=== PATIENT | female | born 1955 | race Caucasian/White ===

== ENCOUNTER 2019-08-21 23:00 | Observation (INO) | payer MEDICARE, MEDICAID, SELFPAY ==
[2019-08-21 23:01] VITALS: BP 163/98; PULSE 108; RESP 16; TEMP 36.8; O2SAT 96; BMI 23.3
--- NOTE | 2019-08-21 23:24 | CT_ITS ---
PROCEDURE: CT ABDOMEN PELVIS WO CON CLINICAL INDICATION: lft flank pain Left flank pain COMPARISON: ABDPELW CT ABD PELVIS W/ CONTRAST from 04/28/2016 TECHNIQUE: Axial images obtained with sagittal and coronal reformats. All CT scans at the facility use one or more dose reduction, viz: automated exposure control, ma/kV adjustment per patient size (including targeted exams where dose is matched to indication, i.e. head), or iterative reconstruction technique. FINDINGS: LOWER THORAX: There is mild thickening of the pericardium at 8 mm. Coronary artery calcifications are present. ABDOMEN & PELVIS: Prior cholecystectomy. The liver, spleen, right adrenal gland, pancreas, and left kidney have an unremarkable appearance. There is a left adrenal mass which measures 2.7 cm measuring -13 Hounsfield units consistent with an adenoma. The right kidney is severely atrophic. Atherosclerotic changes are present involving the abdominal aorta with mild dilatation of the mid abdominal aorta at 2 cm.. There is nonvisualization of the appendix but no signs of appendicitis. Bowel gas pattern is nonspecific. There are scattered colonic diverticula but no evidence of diverticulitis. No acute bony anomalies. There is a sclerotic focus involving the left femoral head measuring 8 mm suggesting a bone island. IMPRESSION: 1. No acute findings. 2. Left adrenal adenoma not significantly changed. 3. Atrophy of the right kidney Dictated by: Terence Padron MD 08/22/2019 09:59 Electronically signed by Terence Padron MD in [place] 08/22/2019 09:59
--- NOTE | 2019-08-21 23:46 | HMH.EDGENADL ---
ED Disposition Clinical Impression: Flank pain, acute UTI (urinary tract infection) Qualifiers: Urinary tract infection type: site unspecified Hematuria presence: without hematuria Qualified Code(s): N39.0 - Urinary tract infection, site not specified Disposition: Admitted as Observation Condition on Discharge: Fair Referrals: Nico Hayward MD [Primary Care Provider] - - Critical Care Critical Care Time: No Attestation: On 08/21/19, the high probability of a clinically significant, sudden or life threatening deterioration of the following system(s) required my full and direct attention, intervention and personal management. The time I documented below is in addition to time spent performing reported procedures but includes the following listed in this critical care notation. Medical Decision Making - Medical Records Medical records reviewed: Yes: I reviewed the patient's medical records. - Leonard Inquiry Pt receiving controlled substance: No Vital Signs: 08/21/19 23:01 08/22/19 00:01 08/22/19 00:31 Temperature 98.2 F Temperature Source Oral Pulse Rate [Left Radial] 108 H 99 H 91 H Respiratory Rate 16 16 15 Blood Pressure [Right Arm] 163/98 H 154/96 H 153/89 H Blood Pressure Mean [Right Arm] 119 115 110 Blood Pressure Source [Right Arm] Automatic Cuff Blood Pressure Position [Right Arm] Sitting Sitting 02 Sat by Pulse Oximetry 96 97 95 Oxygen Delivery Method Room Air Room Air Room Air 08/22/19 01:01 Temperature Temperature Source Pulse Rate [Left Radial] 81 Respiratory Rate 16 Blood Pressure [Right Arm] 146/71 H Blood Pressure Mean [Right Arm] 96 Blood Pressure Source [Right Arm] Automatic Cuff Blood Pressure Position [Right Arm] 02 Sat by Pulse Oximetry 94 L Oxygen Delivery Method Room Air - Lab Data Lab results reviewed: Yes: I reviewed the patient's lab results. Lab Results 08/21/19 23:55: WBC 10.1, RBC 4.73, Hgb 14.4, Hct 41.6, MCV 88.0, MCH 30.5, MCHC 34.7, RDW 14.2, Plt Count 201, MPV 7.2 L, Neut % (Auto) 74.3, Lymph % (Auto) 18.3, [place] % (Auto) 5.4, Eos % (Auto) 1.5, Baso % (Auto) 0.5, Neut # (Auto) 7.5, Lymph # (Auto) 1.8, [place] # (Auto) 0.5, Eos # (Auto) 0.2, Baso # (Auto) 0.1, ESR 76 H 08/21/19 23:55: Sodium 138, Potassium 4.0, Chloride 101, Carbon Dioxide 28, Anion Gap 13.0, BUN 11, Creatinine 1.10 H, Estimated Creat Clear 53, Estimated GFR 50 L, Est GFR ( Amer) 60, Glucose 116 H, Calcium 10.3 H, Total Bilirubin 0.5, AST 24, ALT 14, Alkaline Phosphatase 145 H, C-Reactive Protein 16.7 H, Total Protein 8.2, Albumin 4.6, Globulin 3.6 H, Albumin/Globulin Ratio 1.3 08/22/19 00:00: Urine Color Yellow, Urine Appearance Clear, Urine pH 6.0, Ur Specific [place] 1.020, Urine Protein Negative, Urine Glucose (UA) Negative, Urine Ketones Negative, Urine Blood Negative, Urine Nitrate Negative, Urine Bilirubin Negative, Urine Urobilinogen 0.2, Ur Leukocyte Esterase 1+ A, Urine WBC 5-10, Ur Squamous Epith Cells 3-5, Urine Bacteria 1+ 08/22/19 00:16: Lactate 1.0 Result diagrams: 08/21/19 23:55 08/21/19 23:55 Orders (Tests/Meds): ED MEDICATIONS Generic Name Dose Route Start Last Admin Trade Name Freq PRN Reason Stop Dose Admin Sodium Chloride 1,000 mls @ 999 mls/hr 08/22/19 00:15 08/22/19 00:07 Sod Chlor 0.9% 1000ml Bag IV 08/22/19 01:15 999 mls/hr .Q1H1M CATALINO Administration Ertapenem 1 gm/ Sodium 50 mls @ 100 mls/hr 08/22/19 02:00 Chloride IV 09/05/19 01:59 Q24H CATALINO Protocol Discontinued Medications Generic Name Dose Route Start Last Admin Trade Name Freq PRN Reason Stop Dose Admin Ondansetron HCl 4 mg 08/22/19 00:04 08/22/19 00:07 Zofran 4mg/2ml Vial IV 08/22/19 00:05 4 mg ONCE ONE Administration ORDERS Category Date Time Status CT abdomen pelvis wo con Stat Cat Scan 08/21/19 23:24 Taken Blood Culture Stat Micro 08/22/19 00:16 Received Urine Culture Stat Micro 08/22/19 00:00 Received - CT Data CT Scan: Abdom
[2019-08-22] VITALS (10 sets, daily range): BP systolic 135–157; BP diastolic 71–96; PULSE 60–99; RESP 15–20; TEMP 36.4–36.8; O2SAT 91–98; BMI 19.6
[2019-08-22 00:01] LABS: Basophils # 0.1 K/mm3 (0-0.2); Basophils % 0.5 % (0.1-2.0); Eosinophils # 0.2 K/mm3 (0.0-0.4); Eosinophils % 1.5 % (0.1-12.0); Hematocrit 41.6 % (37.0-47.0); Hemoglobin 14.4 g/dL (12.2-16.2); Lymphocytes # 1.8 K/mm3 (0.7-4.5); Lymphocytes % 18.3 % (10-50); Mean Corpuscular HGB Conc 34.7 g/dL (31.8-35.4); Mean Corpuscular Hemoglobin 30.5 pg (27.0-31.2); Mean Platelet Volume 7.2 fl (7.4-10.4); Monocytes # 0.5 K/mm3 (0.1-1.0); Monocytes % 5.4 % (1.7-9.3); Neutrophils # 7.5 K/mm3 (1.8-7.8); Neutrophils % 74.3 % (37.0-80.0); Platelet Count 201 K/mm3 (142-424); Red Blood Count 4.73 M/mm3 (4.20-5.40); Red Cell Distribution Width 14.2 % (11.5-17.5); White Blood Count 10.1 K/mm3 (4.8-10.8)
[2019-08-22 00:04] LABS: Microscopic, Urine URINE MICROSCOPIC (MICROSCOPIC)
[2019-08-22 00:05] LABS: Appearance,Urine CLEAR (Clear); Bilirubin,Urine Negative (Negative); Blood, Urine Negative (Negative); Color,Urine YELLOW (Yellow); Glucose,Urine (UA) Negative (Negative); Ketones,Urine Negative (Negative); Leukocyte Esterase,Urine 1+ (Negative); Nitrate,Urine Negative (Negative); Protein,Urine Negative (Negative); Urobilinogen,Urine 0.2 EU/dl (0.2)
[2019-08-22 00:22] LABS: Bacteria,Urine 1+ /lpf
[2019-08-22 00:25] LABS: Alanine Aminotransferase 14 U/L (12-78); Albumin Level 4.6 g/dl (3.5-5.0); Albumin/Globulin Ratio 1.3 (1.1-1.8); Alkaline Phosphatase 145 U/L (38-126); Aspartate Amino Transferase 24 U/L (14-36); Bilirubin,Total 0.5 mg/dl (0.2-1.3); Blood Urea Nitrogen 11 mg/dl (7-17); Calcium 10.3 mg/dl (8.4-10.2); Carbon Dioxide 28 mmol/L (22.0-30.0); Chloride 101 mmol/L (98-107); Creatinine Clearance Estimated 53 mL/min (50-200); Estimated Glomerular Filt Rate 50 ml/min (>60); GFR (African American) 60 ML/MIN (>60); Globulin 3.6 g/dL (1.3-3.2); Glucose 116 mg/dl (74-100); Sodium 138 mmol/L (136-145); Total Protein,Serum 8.2 g/dl (6.3-8.2)
[2019-08-22 00:29] LABS: Erythrocyte Sedimentation Rate 76 mm/hr (0-30)
[2019-08-22 00:31] LABS: C-Reactive Protein 16.7 mg/L (0-4)
--- NOTE | 2019-08-22 02:29 | PC.NURSE ---
patient to floor via wheelchair.
--- NOTE | 2019-08-22 05:42 | PC.NURSE ---
A&OX4. PT TOLERATING RA WELL. PT C/O ABD PAIN ONLY WHEN SHE MOVES, AND HAS RESTED WELL MAJORITY OF SHIFT. PT UP INDEPENDENTLY IN ROOM. PT TOLERATING NPO DIET WELL. PT HAS HAD NO OTHER COMPLAINTS T/O SHIFT. VSS WILL CONTINUE TO MONITOR.
[2019-08-22 06:46] LABS: Eosinophils # 0.1 K/mm3 (0.0-0.4); Monocytes # 0.4 K/mm3 (0.1-1.0); Red Cell Distribution Width 14.3 % (11.5-17.5)
[2019-08-22 06:56] LABS: Basophils % 0.4 % (0.1-2.0); Eosinophils % 0.8 % (0.1-12.0); Hematocrit 35.8 % (37.0-47.0); Lymphocytes # 1.8 K/mm3 (0.7-4.5); Lymphocytes % 24.3 % (10-50); Mean Corpuscular HGB Conc 35.7 g/dL (31.8-35.4); Mean Corpuscular Hemoglobin 31.5 pg (27.0-31.2); Mean Corpuscular Volume 88.1 fl (81-99); Mean Platelet Volume 7.7 fl (7.4-10.4); Monocytes % 5.2 % (1.7-9.3); Neutrophils # 5.2 K/mm3 (1.8-7.8); Neutrophils % 69.3 % (37.0-80.0); Platelet Count 182 K/mm3 (142-424); Red Blood Count 4.06 M/mm3 (4.20-5.40); White Blood Count 7.4 K/mm3 (4.8-10.8)
[2019-08-22 06:59] LABS: Chloride 109 mmol/L (98-107); Hemoglobin 12.8 g/dL (12.2-16.2); Potassium 4.1 mmoL/L (3.5-5.1); Sodium 137 mmol/L (136-145)
[2019-08-22 07:02] LABS: Anion Gap 8.1 mEq/L (5-15); Blood Urea Nitrogen 8 mg/dl (7-17); Carbon Dioxide 24 mmol/L (22.0-30.0); Creatinine Clearance Estimated 58 mL/min (50-200); Estimated Glomerular Filt Rate 63 ml/min (>60); GFR (African American) 76 ML/MIN (>60); Glucose 118 mg/dl (74-100)
[2019-08-22 07:16] LABS: Calcium 8.8 mg/dl (8.4-10.2)
--- NOTE | 2019-08-22 07:27 | HMH.PHAVTE ---
[facility] Pharm[facility] VTE Monitoring - Patient Demographics Admission date: 08/22/19 Report Date: 08/22/19 Time: 07:27 Allergies/Adverse Reactions: Patient Allergies codeine [CODEINE] Allergy (Unknown, Verified 08/22/19 00:00) Height: 1.83 m Weight: 65.771 kg Patient Problems: Current Active Problems UTI (urinary tract infection) (Acute) Flank pain, acute (Acute) - VTE Risk Labs: VTE Related Lab Results Hgb 12.8 g/dL (12.2-16.2) D 08/22/19 06:21 Hct 35.8 % (37.0-47.0) L 08/22/19 06:21 Plt Count 182 K/mm3 (142-424) 08/22/19 06:21 BUN 8 mg/dl (7-17) D 08/22/19 06:21 Creatinine 0.90 mg/dl (0.52-1.04) 08/22/19 06:21 Estimated Creat Clear 58 mL/min (50-200) 08/22/19 06:21 Was VTE Risk Assessment Performed: Yes VTE Score: 6 VTE Risk Level: Moderate Risk Clinical Trial Participant: No - Prophylaxis VTE Prophylaxis Ordered?: Yes Types of VTE Prophylaxis: TEDS Knee High
--- NOTE | 2019-08-22 08:54 | HMH.CNCARD ---
History of Present Illness Consult date: 08/22/19 Requesting physician: Deshaun Sims Chief complaint: left flank pain Additional Medical History:: 1. Coronary artery disease A. STEMI, 10/2016, status post thrombectomy and ESMER to ostial proximal mid large first OM off the dominant circumflex artery. Persistent severe stenosis in second OM and moderate to severe stenosis in mid LAD as well as moderate to severe stenosis in proximal nondominant large RCA. Mild left ventricular dilatation with mild inferior apical hypokinesis and EF of 55%. LVEDP of 15 mmHg. Plan to bring the patient back within 2 weeks and undergo stenting of the second obtuse marginal with FFR to the LAD and RCA at that time as well. B. Left heart catheterization, 11/23/2016, ESMER to second OM and mid LAD. RCA lesion did not meet FFR criteria for stenting. C. Ischemic cardiomyopathy, 11/2016, Echo LVEF of 40%, mild MR and TR D. Extensive coronary artery calcification noted on abdominal CT scan, 08/2019 2. Tobacco use, started age 7, currently smoking 1 pack/day 3. History of CVA, 07/2019 with right upper extremity weakness that resolved. A. Patient relates plans for left carotid stenting at in the near future. 4. History of hypertension A. Echo, 11/2016, 1. Mildly enlarged left atrium, normal left ventricular size, mild concentric left ventricular hypertrophy, visually estimated ejection fraction 40% with multiple segmental wall motion abnormality described above, grade 1 diastolic dysfunction seen with tissue Doppler evidence of raised left atrial pressure. 2. Mild mitral and tricuspid regurgitation. 3. No significant pericardial effusion noted. 5. History of hyperlipidemia, on statin therapy 6. UTI, 08/22/2019 History of present illness: 64-year-old white female with extensive coronary artery disease and recent CVA 07/2019 for which she was treated and released from [facility] earlier this month presented to hospital for evaluation of left flank pain of sudden onset. Patient denies any chest pain, pressure or tightness. Work-up in the ER showed evidence of UTI and patient was admitted for further evaluation and treatment. CT of the abdomen and pelvis showed extensive coronary calcification and cardiology consulted for evaluation recommendations. Patient does have extensive coronary history as noted above with prior ST elevation IN and ischemic cardiomyopathy. She denies any of the angina type symptoms she had prior to her ST elevation IN. Patient has not been seen in our office in 2 years. She states she follows up with for all of her medical care. [facility] History Medical History: Reports:: Hypertension, Myocardial Infarction Denies:: Diabetes Mellitus Type 1, Diabetes Mellitus Type 2 *Have you ever received a pneumonia vaccine?: Yes *Have you received a flu vaccine this season?: No Other Surgeries: Yes: Cancer Surgery, Cholecystectomy, Coronary Stent, Other - *Social History Educational Level: Attended High School Smoking Status: Current every day smoker Tobacco Type: cigarettes # Packs/Day (cigarettes): 1 Alcohol Intake: never *Occupational Status:: retired *Travel in the last 8 weeks: None Family Hx:: Cancer, Coronary Artery Disease, Heart Attack Meds Home Medications Medication Instructions Recorded Confirmed Type Aspirin 81 mg PO DAILY 08/22/19 08/22/19 History Atorvastatin Calcium [Lipitor 80mg 80 mg PO HS 08/22/19 08/22/19 History Tablet] Clopidogrel Bisulfate [Clopidogrel 75 mg PO DAILY 08/22/19 08/22/19 History 75mg Tab] Losartan Potassium 25 mg PO DAILY 08/22/19 08/22/19 History Allergies Allergy/AdvReac Type Severity Reaction Status Date / Time codeine [CODEINE] Allergy Unknown Verified 08/22/19 00:00 Review of Systems - Review of Systems Review of systems:: pertinent systems reviewed and negative unless documented below - *Cardiovascular Reports shortness of breath with activity,
--- NOTE | 2019-08-22 09:10 | HMH.PHAINT ---
MEDICATION RECONCILIATION COMPLETED ON PATIENT USING PATIENT'S OWN RX BOTTLES. -RONN ADAMS, AMBERD
--- NOTE | 2019-08-22 09:17 | HMH.ACPN2 ---
Internal Medicine - PN: Subj *Date: 08/22/19 *Time: 08:30 Interval history: pt states she still having pain in left flank, Exam Vital signs and Labs for Last 24 Hours: Temp Pulse Resp BP Pulse Ox 97.9 F 79 18 145/82 H 95 08/22/19 07:35 08/22/19 08:46 08/22/19 08:46 08/22/19 07:35 08/22/19 08:46 Laboratory Results - last 24 hr 08/21/19 23:55: WBC 10.1, RBC 4.73, Hgb 14.4, Hct 41.6, MCV 88.0, MCH 30.5, MCHC 34.7, RDW 14.2, Plt Count 201, MPV 7.2 L, Neut % (Auto) 74.3, Lymph % (Auto) 18.3, [place] % (Auto) 5.4, Eos % (Auto) 1.5, Baso % (Auto) 0.5, Neut # (Auto) 7.5, Lymph # (Auto) 1.8, [place] # (Auto) 0.5, Eos # (Auto) 0.2, Baso # (Auto) 0.1, ESR 76 H 08/21/19 23:55: Sodium 138, Potassium 4.0, Chloride 101, Carbon Dioxide 28, Anion Gap 13.0, BUN 11, Creatinine 1.10 H, Estimated Creat Clear 53, Estimated GFR 50 L, Est GFR ( Amer) 60, Glucose 116 H, Calcium 10.3 H, Total Bilirubin 0.5, AST 24, ALT 14, Alkaline Phosphatase 145 H, C-Reactive Protein 16.7 H, Total Protein 8.2, Albumin 4.6, Globulin 3.6 H, Albumin/Globulin Ratio 1.3 08/22/19 00:00: Urine Color Yellow, Urine Appearance Clear, Urine pH 6.0, Ur Specific [place] 1.020, Urine Protein Negative, Urine Glucose (UA) Negative, Urine Ketones Negative, Urine Blood Negative, Urine Nitrate Negative, Urine Bilirubin Negative, Urine Urobilinogen 0.2, Ur Leukocyte Esterase 1+ A, Urine WBC 5-10, Ur Squamous Epith Cells 3-5, Urine Bacteria 1+ 08/22/19 00:16: Lactate 1.0 08/22/19 06:21: WBC 7.4 D, RBC 4.06 L, Hgb 12.8 D, Hct 35.8 L, MCV 88.1, MCH 31.5 H, MCHC 35.7 H, RDW 14.3, Plt Count 182, MPV 7.7, Neut % (Auto) 69.3, Lymph % (Auto) 24.3, [place] % (Auto) 5.2, Eos % (Auto) 0.8, Baso % (Auto) 0.4, Neut # (Auto) 5.2, Lymph # (Auto) 1.8, [place] # (Auto) 0.4, Eos # (Auto) 0.1, Baso # (Auto) 0.0 08/22/19 06:21: Sodium 137, Potassium 4.1, Chloride 109 H, Carbon Dioxide 24, Anion Gap 8.1, BUN 8 D, Creatinine 0.90, Estimated Creat Clear 58, Estimated GFR 63, Est GFR ( Amer) 76 D, Glucose 118 H, Calcium 8.8 D I & O for Last 24 hours: Intake & Output 08/19/19 08/20/19 08/21/19 08/22/19 11:59 11:59 11:59 11:59 Intake Total 174 / 174 Balance 174 / 174 Weight 145 lb - Constitutional no acute distress - *Routine HEENT Exam Head: Present: normocephalic Eye: Present: PERRL ENT: Present: mucous membranes moist - *Routine Neck Exam Present: supple. Absent: carotid bruit, lymphadenopathy - *Routine Respiratory Exam Present: CTA bilaterally - *Routine Cardiovascular Exam Present: RRR Comments: tender to palpate chest wall - *Routine Abdominal Exam Present: soft, normoactive bowel sounds, tenderness, surgical scars Comments: tenderness to left flank scars s/p gallbladder and hysterectomy - *Routine Extremities Exam Present: normal capillary refill. Absent: cyanosis, clubbing, edema - *Routine Skin Exam Present: intact, warm. Absent: rash - *Routine Neurological Exam Present: alert, oriented X3 - Routine Psychiatric Exam Present: normal affect Assessment and Plan (1) Flank pain, acute Current visit: Yes Status: Acute Category: Medical Code(s): R10.9 - Unspecified abdominal pain (2) UTI (urinary tract infection) Current visit: Yes Status: Acute Qualifiers: Urinary tract infection type: site unspecified Hematuria presence: without hematuria Qualified Code(s): N39.0 - Urinary tract infection, site not specified Category: Medical Code(s): N39.0 - Urinary tract infection, site not specified (3) Tobacco use disorder, continuous Current visit: Yes Status: Acute Category: Medical Code(s): F17.209 - Nicotine dependence, unspecified, with unspecified nicotine-induced disorders (4) Hyperlipidemia Current visit: Yes Status: Acute Category: Medical Code(s): E78.5 - Hyperlipidemia, unspecified (5) Coronary artery disease Current visit: Yes Status: Acute Category: Medical Code(s): I25.10 - Athe
--- NOTE | 2019-08-22 09:21 | XR_ITS ---
PROCEDURE: XR CHEST 2V CLINICAL HISTORY: chest wall tenderness Left-sided chest pain COMPARISON: CXR CHEST(2 VIEWS-NOT PORTABLE) from 04/05/2016 CXR1 CHEST-PORTABLE from 11/02/2016 FINDINGS: Mild cardiomegaly without failure. Mild prominence of the interstitial markings which appears chronic. No lobar consolidation or collapse. No acute bony findings. Coronary artery calcifications are present and there are degenerative changes of the thoracic spine with mild kyphosis. There is some minimal left apical pleural thickening slightly per more prominent which could be due to positioning. Follow-up may confirm stability No acute bony abnormalities. IMPRESSION: Mild cardiomegaly with chronic changes. Chronic changes with minimal left apical pleural thickening slightly more prominent. Follow-up may confirm stability Dictated by: Terence Padron MD 08/22/2019 10:02 Electronically signed by Terence Padron MD in [place] 08/22/2019 10:02
[2019-08-22 09:58] LABS: Troponin I < 0.01 ng/ml (0.00-0.034)
--- NOTE | 2019-08-22 15:31 | PC.NURSE ---
Pt has been pleasant and cooperative this shift. A&O X4. No complaints of pain or SOA. Gus was contacted regarding NPO status and Cardiac diet order was given. Lungs CTA. Pt ambulates to and from the bathroom independently. No BM thus far this shift. Pt refuses LOLY hose. 20 G peripheral IV in the RT AC is patent and infusing NS @ 75 ML/HR. VSS. Call light within reach. Will continue to monitor.
--- NOTE | 2019-08-22 16:32 | HMH.CONS ---
*Admission Date: 08/22/19 *Reason for consult:: Left flank pain *History of present illness: Patient is a 64-year-old white female who came to the emergency room yesterday with the acute onset of left flank pain. She denies a history of stones and a CT scan was performed which showed no evidence of stones. There is a left adrenal mass which measures 2.7 cm and is consistent with an adenoma. Looking back at the previous scan in 2017 size of this adenoma is stable and unchanged. Patient denies any trauma, injury or increased activity. Her renal function is normal and her white count is normal and her urinalysis showed few white cells and she is currently on an antibiotic. She gives a history of recurrent urinary tract infections and strong smelling urine. This is not been worked up in the past. [facility] History Medical History: Reports:: Hypertension, Myocardial Infarction Denies:: Diabetes Mellitus Type 1, Diabetes Mellitus Type 2 *Have you ever received a pneumonia vaccine?: Yes *Have you received a flu vaccine this season?: No Other Surgeries: Yes: Cancer Surgery, Cholecystectomy, Coronary Stent, Other - *Social History Educational Level: Attended High School Smoking Status: Current every day smoker Tobacco Type: cigarettes # Packs/Day (cigarettes): 1 Alcohol Intake: never *Occupational Status:: retired *Travel in the last 8 weeks: None Family Hx:: Cancer, Coronary Artery Disease, Heart Attack Review of Systems - Review of Systems Review of systems:: pertinent systems reviewed and negative unless documented below - *Neurologic Denies localized weakness, Denies seizure-like activity Meds Home Medications Medication Instructions Recorded Confirmed Type Aspirin 81 mg PO DAILY 08/22/19 08/22/19 History Atorvastatin Calcium [Lipitor 80mg 80 mg PO HS 08/22/19 08/22/19 History Tablet] Clopidogrel Bisulfate [Clopidogrel 75 mg PO DAILY 08/22/19 08/22/19 History 75mg Tab] Losartan Potassium 25 mg PO DAILY 08/22/19 08/22/19 History Allergies Allergy/AdvReac Type Severity Reaction Status Date / Time codeine [CODEINE] Allergy Unknown Verified 08/22/19 00:00 Exam Vital signs and Labs for Last 24 Hours: Temp Pulse Resp BP Pulse Ox 97.8 F 94 H 20 145/79 H 92 L 08/22/19 15:04 08/22/19 15:04 08/22/19 15:04 08/22/19 15:04 08/22/19 15:04 Laboratory Results - last 24 hr 08/21/19 23:55: WBC 10.1, RBC 4.73, Hgb 14.4, Hct 41.6, MCV 88.0, MCH 30.5, MCHC 34.7, RDW 14.2, Plt Count 201, MPV 7.2 L, Neut % (Auto) 74.3, Lymph % (Auto) 18.3, [place] % (Auto) 5.4, Eos % (Auto) 1.5, Baso % (Auto) 0.5, Neut # (Auto) 7.5, Lymph # (Auto) 1.8, [place] # (Auto) 0.5, Eos # (Auto) 0.2, Baso # (Auto) 0.1, ESR 76 H 08/21/19 23:55: Sodium 138, Potassium 4.0, Chloride 101, Carbon Dioxide 28, Anion Gap 13.0, BUN 11, Creatinine 1.10 H, Estimated Creat Clear 53, Estimated GFR 50 L, Est GFR ( Amer) 60, Glucose 116 H, Calcium 10.3 H, Total Bilirubin 0.5, AST 24, ALT 14, Alkaline Phosphatase 145 H, C-Reactive Protein 16.7 H, Total Protein 8.2, Albumin 4.6, Globulin 3.6 H, Albumin/Globulin Ratio 1.3 08/22/19 00:00: Urine Color Yellow, Urine Appearance Clear, Urine pH 6.0, Ur Specific [place] 1.020, Urine Protein Negative, Urine Glucose (UA) Negative, Urine Ketones Negative, Urine Blood Negative, Urine Nitrate Negative, Urine Bilirubin Negative, Urine Urobilinogen 0.2, Ur Leukocyte Esterase 1+ A, Urine WBC 5-10, Ur Squamous Epith Cells 3-5, Urine Bacteria 1+ 08/22/19 00:16: Lactate 1.0 08/22/19 06:21: WBC 7.4 D, RBC 4.06 L, Hgb 12.8 D, Hct 35.8 L, MCV 88.1, MCH 31.5 H, MCHC 35.7 H, RDW 14.3, Plt Count 182, MPV 7.7, Neut % (Auto) 69.3, Lymph % (Auto) 24.3, [place] % (Auto) 5.2, Eos % (Auto) 0.8, Baso % (Auto) 0.4, Neut # (Auto) 5.2, Lymph # (Auto) 1.8, [place] # (Auto) 0.4, Eos # (Auto) 0.1, Baso # (Auto) 0.0 08/22/19 06:21: Sodium 137, Potassium 4.1, Chloride 109 H, Carbon Dioxide 24, Anion Gap 8.1, BUN 8 D, Creatinine 0.90, Estimated Creat Clear 5
--- NOTE | 2019-08-22 23:35 | PC.NURSE ---
She is A&Ox4. She ambulates to the bathroom independently with steady gait. She reports that she has burning with urination, urinary urgency, and sometimes urinary frequency. She continues on RA. She also plans to make herself NPO at night for her appt at tomorrow.
[2019-08-23 04:00] VITALS: BP 150/76; PULSE 72; RESP 16; TEMP 36.4; O2SAT 94
--- NOTE | 2019-08-23 04:08 | PC.NURSE ---
PT HAS BEEN AWAKE MOST OF THE NIGHT STATES SHE HAS INSOMNIA.PT HAS ONLY BEEN MEDICATED WITH CATALINO TORADOL AND DENIED ANY PAIN BEFORE GIVEN.PT SAID SHE DID NOT KNOW WEATHER SHE WAS SUPPOSE TO BE NPO FOR TODAYS APPOINTMENT AT AT 1:45 FOR ULTRASOUND OF HER CAROID ARTERY,NOTIFIED RADIOLOGY HERE AND THEY SAID NO.PT STILL REPORTS SOME BURNING WITH VOIDING.NO OTHER ACUTE CHANGES TO REPORT,WILL CONTINUE TO MONITOR
[2019-08-23 05:00] VITALS: BMI 27.1
[2019-08-23 08:00] VITALS: BP 162/75; PULSE 75; RESP 16; TEMP 36.7; O2SAT 97
--- NOTE | 2019-08-23 11:36 | PC.NURSE ---
Addendum entered by Poonam Lea RN 08/23/19 12:00: 1200 - Call attempted again at this time w/ no answer. Pt family eager to leave. Discussed w/ pt if she was to wish to leave at this time she would have to sign a AMA paper d/t no DC order being place. Original Note: 1023 - Contacted Dr. Hayward's office about pt's discharge. Physician not available at this time. Nurse to leave note for call back. 1124 - Office contacted again about discharge orders. Spoke w/ service desk team lead who states they will speak w/ Faustoonda about placing order. Pt's family adamant about pt needing to leave to make appointment at by 1342. Reassured family that physicians office has been contacted and awaiting discharge orders.
--- NOTE | 2019-08-23 11:48 | HMH.DCSUM ---
General - General Admission date:: 08/22/19 Discharge date: 08/23/19 HPI HPI: 64 year old female presented to er with left flank pain, preceded by uti features. Antibiotics started, urology and cardiology consulted. Hospital Course Hospital Course: Laboratory Tests 08/21/19 08/21/19 08/22/19 23:55 23:55 00:00 WBC 10.1 RBC 4.73 Hgb 14.4 Hct 41.6 MCV 88.0 MCH 30.5 MCHC 34.7 RDW 14.2 Plt Count 201 MPV 7.2 L Neut % (Auto) 74.3 Lymph % (Auto) 18.3 [place] % (Auto) 5.4 Eos % (Auto) 1.5 Baso % (Auto) 0.5 Neut # (Auto) 7.5 Lymph # (Auto) 1.8 [place] # (Auto) 0.5 Eos # (Auto) 0.2 Baso # (Auto) 0.1 ESR 76 H Sodium 138 Potassium 4.0 Chloride 101 Carbon Dioxide 28 Anion Gap 13.0 BUN 11 Creatinine 1.10 H Estimated Creat Clear 53 Estimated GFR 50 L Est GFR ( Amer) 60 Glucose 116 H Lactate Calcium 10.3 H Total Bilirubin 0.5 AST 24 ALT 14 Alkaline Phosphatase 145 H Troponin I C-Reactive Protein 16.7 H Total Protein 8.2 Albumin 4.6 Globulin 3.6 H Albumin/Globulin Ratio 1.3 Urine Color Yellow Urine Appearance Clear Urine pH 6.0 Ur Specific [place] 1.020 Urine Protein Negative Urine Glucose (UA) Negative Urine Ketones Negative Urine Blood Negative Urine Nitrate Negative Urine Bilirubin Negative Urine Urobilinogen 0.2 Ur Leukocyte Esterase 1+ A Urine WBC 5-10 Ur Squamous Epith Cells 3-5 Urine Bacteria 1+ 08/22/19 08/22/19 08/22/19 00:16 06:21 06:21 WBC 7.4 D RBC 4.06 L Hgb 12.8 D Hct 35.8 L MCV 88.1 MCH 31.5 H MCHC 35.7 H RDW 14.3 Plt Count 182 MPV 7.7 Neut % (Auto) 69.3 Lymph % (Auto) 24.3 [place] % (Auto) 5.2 Eos % (Auto) 0.8 Baso % (Auto) 0.4 Neut # (Auto) 5.2 Lymph # (Auto) 1.8 [place] # (Auto) 0.4 Eos # (Auto) 0.1 Baso # (Auto) 0.0 ESR Sodium 137 Potassium 4.1 Chloride 109 H Carbon Dioxide 24 Anion Gap 8.1 BUN 8 D Creatinine 0.90 Estimated Creat Clear 58 Estimated GFR 63 Est GFR ( Amer) 76 D Glucose 118 H Lactate 1.0 Calcium 8.8 D Total Bilirubin AST ALT Alkaline Phosphatase Troponin I C-Reactive Protein Total Protein Albumin Globulin Albumin/Globulin Ratio Urine Color Urine Appearance Urine pH Ur Specific [place] Urine Protein Urine Glucose (UA) Urine Ketones Urine Blood Urine Nitrate Urine Bilirubin Urine Urobilinogen Ur Leukocyte Esterase Urine WBC Ur Squamous Epith Cells Urine Bacteria 08/22/19 06:21 WBC RBC Hgb Hct MCV MCH MCHC RDW Plt Count MPV Neut % (Auto) Lymph % (Auto) [place] % (Auto) Eos % (Auto) Baso % (Auto) Neut # (Auto) Lymph # (Auto) [place] # (Auto) Eos # (Auto) Baso # (Auto) ESR Sodium Potassium Chloride Carbon Dioxide Anion Gap BUN Creatinine Estimated Creat Clear Estimated GFR Est GFR ( Amer) Glucose Lactate Calcium Total Bilirubin AST ALT Alkaline Phosphatase Troponin I < 0.01 C-Reactive Protein Total Protein Albumin Globulin Albumin/Globulin Ratio Urine Color Urine Appearance Urine pH Ur Specific [place] Urine Protein Urine Glucose (UA) Urine Ketones Urine Blood Urine Nitrate Urine Bilirubin Urine Urobilinogen Ur Leukocyte Esterase Urine WBC Ur Squamous Epith Cells Urine Bacteria Microbiology 08/22/19 00:00 Urine,Clean Catch Urine Culture - Preliminary Gram Negative Rods IMPRESSION:ct abd oelvis 1. No acute findings. 2. Left adrenal adenoma not significantly changed. 3. Atrophy of the right kidney chest x ray:IMPRESSION: Mild cardiomegaly with chronic changes. Chronic changes with minimal left apical pleural thickening sli
--- NOTE | 2019-08-23 12:02 | HMH.HP ---
*Admission Date: 08/22/19 (h&p 08/22/19 late entry) *Chief complaint: flank pain *History of present illness: 64 year old female presented to er with left flank pain, preceded by uti features. Antibiotics started, urology and cardiology consulted. [facility] History I have reviewed the patient's past medical history: Yes Medical History: Reports:: Hypertension, Myocardial Infarction Denies:: Diabetes Mellitus Type 1, Diabetes Mellitus Type 2 *Have you ever received a pneumonia vaccine?: Yes *Have you received a flu vaccine this season?: No Other Surgeries: Yes: Cancer Surgery, Cholecystectomy, Coronary Stent, Other - *Social History Educational Level: Attended High School Smoking Status: Current every day smoker Tobacco Type: cigarettes # Packs/Day (cigarettes): 1 Alcohol Intake: never *Occupational Status:: retired *Travel in the last 8 weeks: None Family Hx:: Cancer, Coronary Artery Disease, Heart Attack Review of Systems - Review of Systems Review of systems:: pertinent systems reviewed and negative unless documented below - Constitutional Reports fever(s), Denies chills, Denies weakness - Eyes Denies blurry vision - ENT Denies facial pain - *Cardiovascular Denies chest pain with activity, Denies leg pain with activity - *Respiratory Denies shortness of breath with activity - *Gastrointestinal Denies bloating, Denies nausea, Denies vomiting - *Genitourinary Reports urinary urgency, Denies nipple discharge - *Musculoskeletal Denies abnormal walking - Integumentary/Breasts Denies rash - *Neurologic Denies localized weakness, Denies seizure-like activity - Psychiatric Denies sensing things others do not sense - Endocrine Denies rapid, pounding, or irregular heartbeat - Allergic/Immunologic Denies lip swelling Meds Home Medications Medication Instructions Recorded Confirmed Type Aspirin 81 mg PO DAILY 08/22/19 08/22/19 History Atorvastatin Calcium [Lipitor 80mg 80 mg PO HS 08/22/19 08/22/19 History Tablet] Clopidogrel Bisulfate [Clopidogrel 75 mg PO DAILY 08/22/19 08/22/19 History 75mg Tab] Losartan Potassium 25 mg PO DAILY 08/22/19 08/22/19 History Sulfamethoxazole/Trimethoprim 1 each PO BID 30 Days #60 tab 08/23/19 Rx [Bactrim DS tablet] Allergies Allergy/AdvReac Type Severity Reaction Status Date / Time codeine [CODEINE] Allergy Unknown Verified 08/22/19 00:00 Exam Vital signs and Labs for Last 24 Hours: Temp Pulse Resp BP Pulse Ox 98.1 F 75 16 162/75 H 97 08/23/19 08:00 08/23/19 08:00 08/23/19 08:00 08/23/19 08:00 08/23/19 08:00 Laboratory Results - last 24 hr 08/22/19 00:00: Urine Color Yellow, Urine Appearance Clear, Urine pH 6.0, Ur Specific [place] 1.020, Urine Protein Negative, Urine Glucose (UA) Negative, Urine Ketones Negative, Urine Blood Negative, Urine Nitrate Negative, Urine Bilirubin Negative, Urine Urobilinogen 0.2, Ur Leukocyte Esterase 1+ A, Urine WBC 5-10, Ur Squamous Epith Cells 3-5, Urine Bacteria 1+ I & O for Last 24 hours: Intake & Output 08/21/19 08/22/19 08/23/19 08/24/19 11:59 11:59 11:59 11:59 Intake Total 174 / 174 2928 / 2928 Output Total 900 / 900 Balance 174 / 174 2027 / 2028 Weight 145 lb 200 lb Microbiology Reports for the Last 24 Hours: Microbiology 08/22/19 00:00 Urine,Clean Catch Urine Culture - Preliminary Gram Negative Rods - *Routine HEENT Exam Head: Present: normocephalic Eye: Present: PERRL. Absent: periorbital tenderness ENT: Present: mucous membranes moist - *Routine Neck Exam Present: supple. Absent: lymphadenopathy - *Routine Respiratory Exam Present: CTA bilaterally Comments: tenderness to palpate chest wall - *Routine Cardiovascular Exam Present: RRR - *Routine Abdominal Exam Present: soft, normoactive bowel sounds. Absent: tenderness - *Routine Extremities Exam Present: normal capillary refill. Absent: cyano
--- NOTE | 2019-08-23 12:14 | PC.NURSE ---
Attempted to call office to notify of pt leaving AMA - straight to voicemail at this time.
== END 2019-08-23 12:19 | disposition home or self-care (01) ==
LOC: ER 08-22 01:51 → 2ND 08-22 01:53
PROVIDERS: Physician Assistant; Admitting Provider Emergency Medicine; Emergency Provider Emergency Medicine; PCP Emergency Medicine; Visit Provider Emergency Medicine
DX: N39.0 Urinary tract infection, site not specified (principal); B96.20 Unspecified Escherichia coli [E. coli] as the cause of diseases classified elsewhere; I25.10 Atherosclerotic heart disease of native coronary artery without angina pectoris; I69.351 Hemiplegia and hemiparesis following cerebral infarction affecting right dominant side; I10 Essential (primary) hypertension; Z72.0 Tobacco use; I25.5 Ischemic cardiomyopathy; D35.00 Benign neoplasm of unspecified adrenal gland; R10.9 Unspecified abdominal pain; E78.5 Hyperlipidemia, unspecified; I25.2 Old myocardial infarction; Z88.5 Allergy status to narcotic agent; Z88.8 Allergy status to other drugs, medicaments and biological substances
CPT/HCPCS: 36415; 71046; 74176; 80048; 80053; 81001; 83605; 84484; 85025; 85651; 86140; 87040; 87086; 87088; 87186; 96365; 96367; 96375; 99284; G0378; J1335; J2405

== ENCOUNTER → 2020-06-16 11:09 | Outpatient (CLI) | payer MEDICARE, SELFPAY ==
--- NOTE | 2020-06-16 11:10 | CA_ITS ---
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 Laterality: Bilateral Study Quality: Fair Indications: bruit, Risk Factors Hypertension: TIA/CVA History Smoking Surgery/Intervention Carotid Stent: left Date: 2019 Doppler Spectral Velocity Analysis ECA (R) 106.00/ cm/s ECA (L) 157.00/ cm/s dICA (R) 90.50/35.80 cm/s dICA (L) 72.40/25.60 cm/s [place] (R) 71.00/27.00 cm/s [place] (L) 75.40/29.20 cm/s pICA (R) 85.50/30.20 cm/s pICA (L) 91.30/29.30 cm/s dCCA (R) 59.40/22.30 cm/s dCCA (L) 65.30/16.70 cm/s pCCA (R) 58.70/14.30 cm/s pCCA (L) 59.40/16.20 cm/s Vert (R) 20.50/ cm/s Vert (L) 47.10/ cm/s ICA/CCA 1.50 ICA/CCA 1.40 Findings Duplex evaluation demonstrates stenosis of the right proximal internal carotid artery in the range of 20-49%, lower end of scale. Duplex evaluation demonstrates stenosis of the left proximal internal carotid artery <20%, tortuous vessel. Duplex evaluation demonstrates antegrade flow of the bilateral Vertebral Arteries. Conclusion Duplex evaluation demonstrates stenosis of the right proximal internal carotid artery in the range of 20-49%, lower end of scale. Duplex evaluation demonstrates stenosis of the left proximal internal carotid artery <20%, tortuous vessel. Duplex evaluation demonstrates antegrade flow of the bilateral Vertebral Arteries. Electronically signed by : Terence Padron MD 06/16/2020 17:06:45
== END ==
PROVIDERS: PCP Emergency Medicine; Visit Provider Family Medicine
DX: R09.89 Other specified symptoms and signs involving the circulatory and respiratory systems (principal)
CPT/HCPCS: 93880

== ENCOUNTER 2020-11-06 16:06 | Inpatient (IN) | payer MEDICARE, SELFPAY ==
[2020-11-06 16:08] VITALS: BP 119/60; PULSE 73; RESP 18; TEMP 36.7; O2SAT 98; BMI 21.7
[2020-11-06 17:06] LABS: Microscopic, Urine URINE MICROSCOPIC (MICROSCOPIC)
[2020-11-06 17:09] LABS: Lactic Acid 1.1 mmol/L (0.7-2.1)
[2020-11-06 17:10] LABS: Chloride 103 mmol/L (98-107)
[2020-11-06 17:11] LABS: Appearance,Urine SL CLOUDY (Clear); Bilirubin,Urine Negative (Negative); Blood, Urine Negative (Negative); Color,Urine YELLOW (Yellow); Glucose,Urine (UA) Negative (Negative); Ketones,Urine Negative (Negative); Leukocyte Esterase,Urine Negative (Negative); Nitrate,Urine Negative (Negative); Potassium 4.3 mmoL/L (3.5-5.1); Protein,Urine 1+ (Negative); Sodium 136 mmol/L (136-145); Specific Gravity, Urine 1.025 (1.005-1.030); Urobilinogen,Urine 0.2 EU/dl (0.2)
[2020-11-06 17:12] LABS: Basophils % 0.8 % (0.1-2.0); Eosinophils % 0.1 % (0.1-12.0); Hematocrit 46.3 % (37.0-47.0); Hemoglobin 15.3 g/dL (12.2-16.2); Lymphocytes # 1.3 K/mm3 (0.7-4.5); Lymphocytes % 27.9 % (10-50); Mean Corpuscular HGB Conc 32.9 g/dL (31.8-35.4); Mean Corpuscular Hemoglobin 28.9 pg (27.0-31.2); Mean Corpuscular Volume 87.9 fl (81-99); Mean Platelet Volume 9.5 fl (7.4-10.4); Monocytes # 0.2 K/mm3 (0.1-1.0); Monocytes % 5.1 % (1.7-9.3); Platelet Count 141 K/mm3 (142-424); Red Blood Count 5.27 M/mm3 (4.20-5.40); Red Cell Distribution Width 14.8 % (11.5-17.5); White Blood Count 4.5 K/mm3 (4.8-10.8)
[2020-11-06 17:13] LABS: Alanine Aminotransferase 36 U/L (12-78); Aspartate Amino Transferase 70 U/L (14-36); Blood Urea Nitrogen 25 mg/dl (7-17); Creatinine Clearance Estimated 27 mL/min (50-200); Estimated Glomerular Filt Rate 25 ml/min (>60); GFR (African American) 30 ML/MIN (>60)
[2020-11-06 17:14] LABS: Albumin Level 4.1 g/dl (3.5-5.0); Albumin/Globulin Ratio 1.2 (1.1-1.8); Alkaline Phosphatase 94 U/L (38-126); Anion Gap 18.3 mEq/L (5-15); Bilirubin,Total 0.5 mg/dl (0.2-1.3); Carbon Dioxide 19 mmol/L (22.0-30.0); Globulin 3.5 g/dL (1.3-3.2); Glucose 106 mg/dl (74-100); Total Protein,Serum 7.6 g/dl (6.3-8.2)
[2020-11-06 17:22] LABS: Bacteria,Urine 1+ /lpf
[2020-11-06 19:02] VITALS: BP 133/71; PULSE 76; RESP 18; O2SAT 98
[2020-11-06 19:11] LABS: Influenza A, PCR Not Detected (NotDetected); Influenza B, PCR Not Detected (NotDetected)
--- NOTE | 2020-11-06 19:11 | HMH.EDGENADL ---
ED Disposition Clinical Impression: Gastroenteritis Disposition: Admitted As Inpatient Condition on Discharge: Good Instructions: DI for Nausea -- Adult, DI for Nausea -- Child, DI for Diarrhea and Traveler's Diarrhea -- Adult, DI for Diarrhea and Traveler's Diarrhea -- Child Referrals: Nico Hayward MD [Primary Care Provider] - - Critical Care Critical Care Time: No Attestation: On 11/06/20, the high probability of a clinically significant, sudden or life threatening deterioration of the following system(s) required my full and direct attention, intervention and personal management. The time I documented below is in addition to time spent performing reported procedures but includes the following listed in this critical care notation. Medical Decision Making - Medical Records Medical records reviewed: Yes: I reviewed the patient's medical records. - Leonard Inquiry Pt receiving controlled substance: No Vital Signs: 11/06/20 16:08 11/06/20 19:02 Temperature 98.1 F Temperature Source Oral Pulse Rate 76 Pulse Rate [Right] 73 Respiratory Rate 18 18 Blood Pressure 133/71 Blood Pressure [Right Arm] 119/60 Blood Pressure Mean [Right Arm] 79 02 Sat by Pulse Oximetry 98 98 Oxygen Delivery Method Room Air Room Air - Lab Data Lab Results 11/06/20 16:41: WBC 4.5 L, RBC 5.27, Hgb 15.3, Hct 46.3, MCV 87.9, MCH 28.9, MCHC 32.9, RDW 14.8, Plt Count 141 L, MPV 9.5, Neut % (Auto) 66.0, Lymph % (Auto) 27.9, [place] % (Auto) 5.1, Eos % (Auto) 0.1, Baso % (Auto) 0.8, Neut # (Auto) 3.0, Lymph # (Auto) 1.3, [place] # (Auto) 0.2, Eos # (Auto) 0.0, Baso # (Auto) 0.0 11/06/20 16:41: Sodium 136, Potassium 4.3, Chloride 103, Carbon Dioxide 19 L, Anion Gap 18.3 H, BUN 25 H, Creatinine 2.00 H, Estimated Creat Clear 27, Estimated GFR 25 L, Est GFR ( Amer) 30 L, Glucose 106 H, Calcium 9.0, Total Bilirubin 0.5, AST 70 H, ALT 36, Alkaline Phosphatase 94, Total Protein 7.6, Albumin 4.1, Globulin 3.5 H, Albumin/Globulin Ratio 1.2 11/06/20 16:41: Lactate 1.1 11/06/20 16:41: Urine Color Yellow, Urine Appearance Sl cloudy, Urine pH 6.0, Ur Specific [place] 1.025, Urine Protein 1+, Urine Glucose (UA) Negative, Urine Ketones Negative, Urine Blood Negative, Urine Nitrate Negative, Urine Bilirubin Negative, Urine Urobilinogen 0.2, Ur Leukocyte Esterase Negative, Urine RBC 3-5, Urine WBC 3-5, Ur Squamous Epith Cells 3-5, Urine Bacteria 1+ Result diagrams: 11/06/20 16:41 11/06/20 16:41 Orders (Tests/Meds): ED MEDICATIONS Generic Name Dose Route Start Last Admin Trade Name Freq PRN Reason Stop Dose Admin Lactated Ringer's 1,000 mls @ 999 mls/hr 11/06/20 17:00 11/06/20 17:02 Lactated Ringer's 1000 Ml Bag IV 11/06/20 18:00 999 mls/hr .Q1H1M CATALINO Administration Lactated Ringer's 1,000 mls @ 999 mls/hr 11/06/20 19:00 11/06/20 18:51 Lactated Ringer's 1000 Ml Bag IV 11/06/20 20:00 999 mls/hr .Q1H1M CATALINO Administration Lactated Ringer's 1,000 mls @ 100 mls/hr 11/06/20 19:15 Lactated Ringer's 1000 Ml Bag IV 12/06/20 19:14 .Q10H CATALINO ORDERS Category Date Time Status BMP [Basic Metabolic Panel] AMLAB Lab 11/07/20 06:00 Ordered Diarrhea 6-11 Panel, Cdiff PCR Stat Lab 11/06/20 16:55 Ordered Rapid PCR Covid and Flu A/B Stat Lab 11/06/20 19:05 Received Medical Decision Narrative: Patient is a 65-year-old female presents the ED today for further evaluation of dehydration and diarrhea. Differential diagnosis includes enteritis, bacterial enteritis, diverticulitis, urinary tract infection. Patient is overall well-appearing on initial evaluation, vital signs stable mild tachycardia patient given 1 L of IV fluids, labs drawn, plan to obtain CBC CMP, lactate. Patient's creatinine found to be 2.0, as patient has a history of only one kidney, will admit overnight for observation recheck BMP in the morning. Will administer an additional liter of IV fluids for 2 L total, start maintenance fluids at 100/h.
[2020-11-06 19:38] VITALS: BMI 28.9
[2020-11-06 19:47] LABS: Coronavirus 19, PCR Detected (NotDetected)
[2020-11-06 20:00] VITALS: BP 148/70; PULSE 82; RESP 20; TEMP 37.4; O2SAT 90
--- NOTE | 2020-11-06 21:11 | HMH.HP ---
*Admission Date: 11/06/20 *Chief complaint: diarrhea *History of present illness: this pt presents to the ed - Patient c/o diarrhea for the last three weeks. Patient denies any chronic GI disease, patient denies any nausea and vomiting. Patient denies abdominal pain. Patient reports every bowel movement has been diarrhea for the last three weeks. Is a 65-year-old female presents the ED today for diarrhea x3 weeks and symptoms of dehydration. Patient states that she generally feels unwell, states that she has been having profuse diarrhea and for the last couple of days has not been able to keep up with her losses. Denies any blood being in the diarrhea endorses occasional abdominal cramping pain but does not have any other symptoms at this time. No chest pain shortness of breath cough fever. pt was found to have jesusita and was admitted and found also to have covid-19 [facility] History I have reviewed the patient's past medical history: Yes Medical History: Reports:: Cancer, Carotid Stenosis, Hyperlipidemia, Hypertension, Myocardial Infarction, Ulcer Denies:: Diabetes Mellitus Type 1, Diabetes Mellitus Type 2 *Have you ever received a pneumonia vaccine?: Yes *Have you received a flu vaccine this season?: No Other Surgeries: Yes: Cancer Surgery, Cardiac Catheterization, Cholecystectomy, Coronary Stent, Hysterectomy-Total, Tubal Ligation, Other Amputation: No Fractures: Yes - *Social History Smoking Status: Current every day smoker Tobacco Type: cigarettes # Packs/Day (cigarettes): 1 Alcohol Intake: never Substance Use Type: denies use *Occupational Status:: retired *Travel in the last 8 weeks: None Family Hx:: Cancer, Coronary Artery Disease, Heart Attack Review of Systems - Review of Systems Review of systems:: pertinent systems reviewed and negative unless documented below - Constitutional Denies fever(s), Denies headache(s) - Eyes Denies discharge - ENT Denies dizziness - *Cardiovascular Denies chest pain with activity - *Respiratory Denies cough - *Gastrointestinal Denies abdominal pain - *Genitourinary Denies blood in urine - *Musculoskeletal Denies joint pain - Integumentary/Breasts Denies rash - *Neurologic Denies headache(s), Denies seizure-like activity - Psychiatric Denies confusion Meds Home Medications Medication Instructions Recorded Confirmed Type No Known Home Medications 11/06/20 11/06/20 History Allergies Allergy/AdvReac Type Severity Reaction Status Date / Time codeine [CODEINE] Allergy Unknown Verified 06/04/20 13:17 morphine AdvReac Severe Hives Verified 06/04/20 13:17 Exam Vital signs and Labs for Last 24 Hours: Temp Pulse Resp BP Pulse Ox 98.1 F 76 18 133/71 98 11/06/20 16:08 11/06/20 19:02 11/06/20 19:02 11/06/20 19:02 11/06/20 19:02 Laboratory Results - last 24 hr 11/06/20 16:41: WBC 4.5 L, RBC 5.27, Hgb 15.3, Hct 46.3, MCV 87.9, MCH 28.9, MCHC 32.9, RDW 14.8, Plt Count 141 L, MPV 9.5, Neut % (Auto) 66.0, Lymph % (Auto) 27.9, [place] % (Auto) 5.1, Eos % (Auto) 0.1, Baso % (Auto) 0.8, Neut # (Auto) 3.0, Lymph # (Auto) 1.3, [place] # (Auto) 0.2, Eos # (Auto) 0.0, Baso # (Auto) 0.0 11/06/20 16:41: Sodium 136, Potassium 4.3, Chloride 103, Carbon Dioxide 19 L, Anion Gap 18.3 H, BUN 25 H, Creatinine 2.00 H, Estimated Creat Clear 27, Estimated GFR 25 L, Est GFR ( Amer) 30 L, Glucose 106 H, Calcium 9.0, Total Bilirubin 0.5, AST 70 H, ALT 36, Alkaline Phosphatase 94, Total Protein 7.6, Albumin 4.1, Globulin 3.5 H, Albumin/Globulin Ratio 1.2 11/06/20 16:41: Lactate 1.1 11/06/20 16:41: Urine Color Yellow, Urine Appearance Sl cloudy, Urine pH 6.0, Ur Specific [place] 1.025, Urine Protein 1+, Urine Glucose (UA) Negative, Urine Ketones Negative, Urine Blood Negative, Urine Nitrate Negative, Urine Bilirubin Negative, Urine Urobilinogen 0.2, Ur Leukocyte Esterase Negative, Urine RBC 3-5, Urine WBC 3-5, Ur Squamous Epith Cells 3-5, Urine Bacteria 1+ 11/06/20 19:05: SARS-C
[2020-11-06 22:31] VITALS: BP 124/73; PULSE 80; RESP 18; TEMP 36.7; O2SAT 98
[2020-11-06 22:59] LABS: Adenovirus F 40/41, stool Not Detected (NotDetected); Astrovirus Not Detected (NotDetected); Campylobacter Not Detected (NotDetected); Clostridium Difficile A/B, PCR Not Detected (NotDetected); Cryptosporidium Not Detected (NotDetected); Cyclospora Cayetanesis Not Detected (NotDetected); Entamoeba histolytica Not Detected (NotDetected); Enteroaggregative E coli Not Detected (NotDetected); Enteropathogenic E coli Not Detected (NotDetected); Enterotoxigenic E coli Not Detected (NotDetected); Giardia lamblia Not Detected (NotDetected); Norovirus Not Detected (NotDetected); Plesimonas Shigalloides, PCR Not Detected (NotDetected); Rotavirus A Not Detected (NotDetected); Salmonella, PCR Not Detected (NotDetected); Sapovirus Not Detected (NotDetected); Shiga-like toxin E coli Not Detected (NotDetected); Shigella Enterovasive E coli Not Detected (NotDetected); Vibrio Cholerae Not Detected (NotDetected); Vibrio, PCR Not Detected (NotDetected); Yersinia Entercolitica, PCR Not Detected (NotDetected)
[2020-11-07] VITALS (9 sets, daily range): BP systolic 121–159; BP diastolic 73–93; PULSE 76–88; RESP 16–20; TEMP 37.3–38.2; O2SAT 86–97; BMI 29.1
--- NOTE | 2020-11-07 00:11 | PC.NURSE ---
patients temp was 101.1, the nurse was notified.
--- NOTE | 2020-11-07 02:14 | PC.NURSE ---
added 2l o2 n/c sats 93%
--- NOTE | 2020-11-07 03:16 | PC.NURSE ---
Patient is alert and oriented x4. Patient lung sounds are diminished throughout. Patient was placed on 2LNC during this RN's shift after midnight. Patient was treated for a low grade temp of 100.1 around midnight and nausea. VSS, call light within reach, will continue to monitor.
--- NOTE | 2020-11-07 09:05 | HMH.ACPN2 ---
Internal Medicine - PN: Subj *Date: 11/08/20 *Time: 07:16 Interval history: feels ok but requiring o2 at 3l- diarrhea panel ok and labs pending Exam Vital signs and Labs for Last 24 Hours: Temp Pulse Resp BP Pulse Ox 100.8 F H 81 18 148/93 H 97 11/07/20 07:58 11/07/20 07:58 11/07/20 07:58 11/07/20 07:58 11/07/20 07:58 Laboratory Results - last 24 hr 11/06/20 16:41: WBC 4.5 L, RBC 5.27, Hgb 15.3, Hct 46.3, MCV 87.9, MCH 28.9, MCHC 32.9, RDW 14.8, Plt Count 141 L, MPV 9.5, Neut % (Auto) 66.0, Lymph % (Auto) 27.9, [place] % (Auto) 5.1, Eos % (Auto) 0.1, Baso % (Auto) 0.8, Neut # (Auto) 3.0, Lymph # (Auto) 1.3, [place] # (Auto) 0.2, Eos # (Auto) 0.0, Baso # (Auto) 0.0 11/06/20 16:41: Sodium 136, Potassium 4.3, Chloride 103, Carbon Dioxide 19 L, Anion Gap 18.3 H, BUN 25 H, Creatinine 2.00 H, Estimated Creat Clear 27, Estimated GFR 25 L, Est GFR ( Amer) 30 L, Glucose 106 H, Calcium 9.0, Total Bilirubin 0.5, AST 70 H, ALT 36, Alkaline Phosphatase 94, Total Protein 7.6, Albumin 4.1, Globulin 3.5 H, Albumin/Globulin Ratio 1.2 11/06/20 16:41: Lactate 1.1 11/06/20 16:41: Urine Color Yellow, Urine Appearance Sl cloudy, Urine pH 6.0, Ur Specific [place] 1.025, Urine Protein 1+, Urine Glucose (UA) Negative, Urine Ketones Negative, Urine Blood Negative, Urine Nitrate Negative, Urine Bilirubin Negative, Urine Urobilinogen 0.2, Ur Leukocyte Esterase Negative, Urine RBC 3-5, Urine WBC 3-5, Ur Squamous Epith Cells 3-5, Urine Bacteria 1+ 11/06/20 19:05: SARS-CoV-2 (PCR) Detected A, Influenza A Untype (PCR) Not detected, Influenza Type B (PCR) Not detected 11/06/20 22:22: Stl Aeromonas (PCR) Not detected, Stl C. cayetanensis PCR Not detected, Stool Rotavirus (PCR) Not detected, Stl Adenov F 40/41 PCR Not detected, Stool Astrovirus (PCR) Not detected, Stool Campylobacter PCR Not detected, Stl C.difficile Tox PCR Not detected, Stool Cryptosporidium PCR Not detected, Stl E.coli Shiga Tox PCR Not detected, Stool E coli O157 PCR Not detected, Stl Enterotoxigenic E PCR Not detected, Stool EPEC (PCR) Not detected, Stool EAEC (PCR) Not detected, Stl E. histolytica PCR Not detected, Stool Giardia Lamblia PCR Not detected, Stool Salmonella PCR Not detected, Stool Sapovirus (PCR) Not detected, Stl P. shigelloides PCR Not detected, Stl Shigella/EIEC PCR Not detected, St Y.enterocolitica PCR Not detected, Stool Vibrio (PCR) Not detected, Stl Vibrio cholerae PCR Not detected, Stl Norovirus GI/GII PCR Not detected I & O for Last 24 hours: Intake & Output 11/04/20 11/05/20 11/06/20 11/07/20 11:59 11:59 11:59 11:59 Intake Total 2847 / 2847 Balance 2847 / 2847 Weight 181 lb 4 oz - Constitutional no acute distress - *Routine HEENT Exam Head: Present: normocephalic Eye: Present: EOMI, PERRL ENT: Present: mucous membranes dry - *Routine Neck Exam Present: supple. Absent: JVD - *Routine Respiratory Exam Present: decreased breath sounds - *Routine Cardiovascular Exam Present: RRR, murmur - *Routine Abdominal Exam Present: soft - *Routine Extremities Exam Absent: calf tenderness - *Routine Skin Exam Present: intact - *Routine Neurological Exam Present: alert, oriented X3, CN II-XII intact - Routine Psychiatric Exam Present: cooperative Assessment and Plan (1) JIN (acute kidney injury) Status: Acute Category: Medical Code(s): N17.9 - Acute kidney failure, unspecified (2) COVID-19 Status: Acute Category: Medical Code(s): U07.1 - COVID-19 (3) Coronary artery disease Status: Chronic Qualifiers: Coronary Disease-Associated Artery/Lesion type: [place] artery [place] vs. transplanted heart: [place] heart Associated angina: without angina Qualified Code(s): I25.10 - Atherosclerotic heart disease of [place] coronary artery without angina pectoris Category: Medical Code(s): I25.10 - Atherosclerotic heart disease of [place] coronary artery without angina pectoris (4) Tobacco use disorder, continu
--- NOTE | 2020-11-07 09:06 | XR_ITS ---
PROCEDURE INFORMATION: Exam: XR Chest Exam date and time: 11/07/2020 9:06 AM Age: 65 years old Clinical indication: Patient HX: Covid positive with shortness of breath. Patient in icu. ; Additional info: Covid-19 and SOB TECHNIQUE: Imaging protocol: XR of the chest. Views: 1 view. COMPARISON: CR XR CHEST 2V 08/22/2019 9:42 AM FINDINGS: Lungs: There are bilateral peripheral pulmonary infiltrates consistent with an atypical pneumonia, including viral pneumonia. Pleural spaces: No pleural effusion. No pneumothorax. Heart/Mediastinum: There is mild cardiomegaly. Bones/joints: Unremarkable. IMPRESSION: There are bilateral peripheral pulmonary infiltrates consistent with an atypical pneumonia, including viral pneumonia.
--- NOTE | 2020-11-07 09:09 | HMH.PHAVTE ---
[facility] Pharmacy VTE Monitoring - Patient Demographics Admission date: 11/06/20 Report Date: 11/07/20 Time: 09:09 Allergies/Adverse Reactions: Patient Allergies codeine [CODEINE] Allergy (Unknown, Verified 06/04/20 13:17) morphine Adverse Reaction (Severe, Verified 06/04/20 13:17) Hives Height: 1.68 m Weight: 82.214 kg Patient Problems: Current Active Problems Gastroenteritis (Acute) JIN (acute kidney injury) (Acute) COVID-19 (Acute) Overweight (BMI 25.0-29.9) (Acute) Coronary artery disease (Chronic) Tobacco use disorder, continuous (Chronic) - VTE Risk Labs: VTE Related Lab Results Hgb 15.3 g/dL (12.2-16.2) 11/06/20 16:41 Hct 46.3 % (37.0-47.0) 11/06/20 16:41 Plt Count 141 K/mm3 (142-424) L 11/06/20 16:41 BUN 25 mg/dl (7-17) H 11/06/20 16:41 Creatinine 2.00 mg/dl (0.52-1.04) H 11/06/20 16:41 Estimated Creat Clear 27 mL/min (50-200) 11/06/20 16:41 VTE Score: 3 VTE Risk Level: Low Risk - Prophylaxis VTE Prophylaxis Ordered?: Yes Types of VTE Prophylaxis: TEDS Knee High, Pharmacological Location of Applied Device: Bilateral Lower Extremeties Pharmacologic Type: Enoxaparin
--- NOTE | 2020-11-07 09:36 | ECG_ITS ---
APPROVED REPORT Exam: Resting ECG HR:85 bpm ECG Measurements Heart Rate 85 AXES VA 128 P 61 QRSd 92 QRS -12 QT 378 T 117 QTc 449 Conclusion Sinus rhythm with premature atrial complexes Possible Inferior infarct, age undetermined T wave abnormality, consider lateral ischemia Abnormal ECG Electronically signed by : Benedict Meyer MD 11/09/2020 20:42:56
[2020-11-07 11:00] LABS: Basophils % 0.6 % (0.1-2.0); Eosinophils % 0.4 % (0.1-12.0); Hemoglobin 13.9 g/dL (12.2-16.2); Lymphocytes # 0.7 K/mm3 (0.7-4.5); Lymphocytes % 22.3 % (10-50); Mean Corpuscular HGB Conc 34.8 g/dL (31.8-35.4); Mean Corpuscular Hemoglobin 29.8 pg (27.0-31.2); Mean Corpuscular Volume 85.5 fl (81-99); Mean Platelet Volume 9.8 fl (7.4-10.4); Monocytes # 0.2 K/mm3 (0.1-1.0); Monocytes % 4.9 % (1.7-9.3); Neutrophils # 2.2 K/mm3 (1.8-7.8); Neutrophils % 71.8 % (37.0-80.0); Platelet Count 94 K/mm3 (142-424); Red Blood Count 4.68 M/mm3 (4.20-5.40); Red Cell Distribution Width 14.8 % (11.5-17.5); White Blood Count 3.1 K/mm3 (4.8-10.8)
[2020-11-07 11:19] LABS: Magnesium 1.6 mg/dl (1.6-2.3)
[2020-11-07 11:30] LABS: Chloride 110 mmol/L (98-107); Potassium 5.1 mmoL/L (3.5-5.1); Sodium 135 mmol/L (136-145)
[2020-11-07 11:33] LABS: Anion Gap 15.1 mEq/L (5-15); Blood Urea Nitrogen 22 mg/dl (7-17); Carbon Dioxide 15 mmol/L (22.0-30.0); Creatinine Clearance Estimated 65 mL/min (50-200); Estimated Glomerular Filt Rate 50 ml/min (>60); GFR (African American) 60 ML/MIN (>60)
[2020-11-07 11:34] LABS: Calcium 8.3 mg/dl (8.4-10.2); Glucose 107 mg/dl (74-100)
--- NOTE | 2020-11-07 12:05 | PC.NURSE ---
Pt unable to produce sputum sample at this time. Instruction given and specimen cup left at bedside.
[2020-11-07 12:21] LABS: Troponin I 0.06 ng/ml (0.00-0.034)
--- NOTE | 2020-11-07 15:56 | PC.NURSE ---
Shift summary. Pt has been a+o x4. Pt has an unproductive cough. Pt has tolerated 3 L nc well t/o shift with sats above 90%. Pt has voiced no complaints to staff t/o shift. Pt was given partial bath this shift and this RN noted pt to have lice. notified and pt was tx per may. Pt currently sleeping in bed. Call light within reach.
--- NOTE | 2020-11-07 17:41 | PC.NURSE ---
Pt was weaned down to 2 L nc at this time and is satting above 92%. Pt has no c/o SOA.
--- NOTE | 2020-11-07 22:15 | PC.NURSE ---
Patient received hair care treatment for lice approximately at 2130. Soaked hair with olive oil and shereen alcala wrapped head for the night
[2020-11-08] VITALS: BP 143/74; PULSE 67; RESP 21; TEMP 36.3; O2SAT 95
[2020-11-08 04:00] VITALS: BP 167/96; PULSE 65; RESP 16; TEMP 36.3; O2SAT 100
[2020-11-08 05:00] VITALS: BMI 29.7
[2020-11-08 05:50] LABS: Basophils % 1.1 % (0.1-2.0); Eosinophils % 0.1 % (0.1-12.0); Hematocrit 45.9 % (37.0-47.0); Hemoglobin 14.2 g/dL (12.2-16.2); Lymphocytes # 0.7 K/mm3 (0.7-4.5); Mean Corpuscular HGB Conc 30.9 g/dL (31.8-35.4); Mean Corpuscular Hemoglobin 28.5 pg (27.0-31.2); Mean Corpuscular Volume 92.2 fl (81-99); Mean Platelet Volume 9.1 fl (7.4-10.4); Monocytes # 0.2 K/mm3 (0.1-1.0); Neutrophils # 2.7 K/mm3 (1.8-7.8); Neutrophils % 74.8 % (37.0-80.0); Platelet Count 114 K/mm3 (142-424); Red Blood Count 4.99 M/mm3 (4.20-5.40); Red Cell Distribution Width 14.7 % (11.5-17.5); White Blood Count 3.6 K/mm3 (4.8-10.8)
[2020-11-08 06:04] LABS: Alanine Aminotransferase 27 U/L (12-78); Albumin Level 3.3 g/dl (3.5-5.0); Albumin/Globulin Ratio 1.1 (1.1-1.8); Alkaline Phosphatase 74 U/L (38-126); Anion Gap 12.5 mEq/L (5-15); Aspartate Amino Transferase 55 U/L (14-36); Bilirubin,Total 0.2 mg/dl (0.2-1.3); Blood Urea Nitrogen 19 mg/dl (7-17); Calcium 8.8 mg/dl (8.4-10.2); Carbon Dioxide 21 mmol/L (22.0-30.0); Chloride 107 mmol/L (98-107); Creatinine Clearance Estimated 73 mL/min (50-200); Estimated Glomerular Filt Rate 63 ml/min (>60); GFR (African American) 76 ML/MIN (>60); Globulin 3.1 g/dL (1.3-3.2); Glucose 123 mg/dl (74-100); Potassium 4.5 mmoL/L (3.5-5.1); Sodium 136 mmol/L (136-145); Total Protein,Serum 6.4 g/dl (6.3-8.2)
--- NOTE | 2020-11-08 07:19 | XR_ITS ---
PROCEDURE INFORMATION: Exam: XR Chest Exam date and time: 11/08/2020 7:19 AM Age: 65 years old Clinical indication: Shortness of breath; Additional info: [id number] TECHNIQUE: Imaging protocol: XR of the chest. Views: 1 view. COMPARISON: CR XR CHEST PORTABLE 11/07/2020 9:21 AM FINDINGS: Lungs: Persistent ill-defined bilateral upper and lower lung infiltrates. Pleural spaces: Unremarkable. No pleural effusion. No pneumothorax. Heart/Mediastinum: Unremarkable. No cardiomegaly. Bones/joints: Unremarkable. IMPRESSION: Essentially stable bilateral infiltrates described above.
[2020-11-08 08:00] VITALS: BP 176/91; PULSE 75; RESP 18; TEMP 36.4; O2SAT 94; O2SAT 95
[2020-11-08 11:12] LABS: C-Reactive Protein 54.5 mg/L (0-4)
[2020-11-08 11:43] LABS: Ferritin 846 ng/ml (11.1-264)
--- NOTE | 2020-11-08 13:56 | PC.NURSE ---
Report given to Derirck Castillo RN who assumes care of patient at time.
[2020-11-08 15:34] VITALS: BP 143/80; PULSE 117; RESP 16; TEMP 36.6; O2SAT 92
[2020-11-08 15:34] LABS: D-Dimer 1.11 ug/mL (0.0-0.5)
--- NOTE | 2020-11-08 18:13 | PC.NURSE ---
PT IS SITTING UP IN THE BED. ALERT AND ORIENTED X4. NO COMPLAINTS OF DISCOMFORT OR SOA. PT HAS BEEN AMBULATING TO THE BATHROOM INDEPENDENTLY. PT HAD A SHOWER THIS SHIFT. EATING AND DRINKING WELL. VSS. O2 SATURATION 92% ON ROOM AIR. WILL CONTINUE TO MONITOR.
[2020-11-08 20:00] VITALS: BP 154/84; PULSE 71; RESP 16; TEMP 37; O2SAT 87
--- NOTE | 2020-11-08 20:03 | HMH.ACPN2 ---
Internal Medicine - PN: Subj *Date: 11/09/20 *Time: 06:47 Interval history: doing better - has head lice - still sob Exam Vital signs and Labs for Last 24 Hours: Temp Pulse Resp BP Pulse Ox 97.9 F 117 H 16 143/80 H 92 L 11/08/20 15:34 11/08/20 15:34 11/08/20 15:34 11/08/20 15:34 11/08/20 15:34 Laboratory Results - last 24 hr 11/08/20 05:25: WBC 3.6 L, RBC 4.99, Hgb 14.2, Hct 45.9, MCV 92.2, MCH 28.5, MCHC 30.9 L, RDW 14.7, Plt Count 114 L, MPV 9.1, Neut % (Auto) 74.8, Lymph % (Auto) 19.0, [place] % (Auto) 5.0, Eos % (Auto) 0.1, Baso % (Auto) 1.1, Neut # (Auto) 2.7, Lymph # (Auto) 0.7, [place] # (Auto) 0.2, Eos # (Auto) 0.0, Baso # (Auto) 0.0 11/08/20 05:25: Sodium 136, Potassium 4.5, Chloride 107, Carbon Dioxide 21 L, Anion Gap 12.5, BUN 19 H, Creatinine 0.90, Estimated Creat Clear 73, Estimated GFR 63, Est GFR ( Amer) 76 D, Glucose 123 H, Calcium 8.8, Total Bilirubin 0.2, AST 55 H, ALT 27, Alkaline Phosphatase 74, Total Protein 6.4, Albumin 3.3 L, Globulin 3.1, Albumin/Globulin Ratio 1.1 11/08/20 10:34: Ferritin 846 H, C-Reactive Protein 54.5 H 11/08/20 15:10: D-Dimer 1.11 H I & O for Last 24 hours: Intake & Output 11/06/20 11/07/20 11/08/20 11/09/20 11:59 11:59 11:59 11:59 Intake Total 2847 / 2847 2445 / 2445 480 / 480 Output Total 300 / 300 Balance 2847 / 2847 2145 / 2145 480 / 480 Weight 181 lb 4 oz 185 lb 6 oz - Constitutional no acute distress - *Routine HEENT Exam Head: Present: normocephalic Eye: Present: EOMI, PERRL ENT: Present: mucous membranes dry - *Routine Neck Exam Absent: JVD - *Routine Respiratory Exam Present: decreased breath sounds - *Routine Cardiovascular Exam Present: RRR. Absent: murmur - *Routine Abdominal Exam Present: soft - *Routine Extremities Exam Present: edema. Absent: calf tenderness - *Routine Skin Exam Present: intact - *Routine Neurological Exam Present: alert, CN II-XII intact. Absent: motor deficit - Routine Psychiatric Exam Present: normal affect Assessment and Plan (1) JIN (acute kidney injury) Status: Acute Category: Medical Code(s): N17.9 - Acute kidney failure, unspecified (2) COVID-19 Status: Acute Category: Medical Code(s): U07.1 - COVID-19 (3) Coronary artery disease Status: Chronic Qualifiers: Coronary Disease-Associated Artery/Lesion type: [place] artery [place] vs. transplanted heart: [place] heart Associated angina: without angina Qualified Code(s): I25.10 - Atherosclerotic heart disease of [place] coronary artery without angina pectoris Category: Medical Code(s): I25.10 - Atherosclerotic heart disease of [place] coronary artery without angina pectoris (4) Tobacco use disorder, continuous Status: Chronic Category: Medical Code(s): F17.209 - Nicotine dependence, unspecified, with unspecified nicotine-induced disorders (5) Overweight (BMI 25.0-29.9) Status: Acute Category: Medical Code(s): E66.3 - Overweight (6) Thrombocytopenia Status: Acute Category: Medical Code(s): D69.6 - Thrombocytopenia, unspecified (7) Head lice infestation Status: Acute Category: Medical Code(s): B85.0 - Pediculosis due to Pediculus humanus capitis
[2020-11-08 20:05] VITALS: O2SAT 90
[2020-11-09] VITALS (8 sets, daily range): BP systolic 146–166; BP diastolic 73–85; PULSE 64–78; RESP 14–24; TEMP 36.5–37.1; O2SAT 88–95; BMI 30.6; BMI 30.4
--- NOTE | 2020-11-09 03:08 | PC.NURSE ---
Pt is A/O x4. Placed pt on 2L NC around midnight room air stat was 88%, after 2L pt was stating around 92% t/o shift. Pt denies any SOA, pain, N/V. Pt can ambulate to bathroom to void. IV patent infusing LR @100ml/hr. Pt stated her head was still itching explained to pt we can apply a hair care treatment, pt denied at this time. Will offer again in the morning. Pt can make needs known to staff. No concerns at this time.
--- NOTE | 2020-11-09 06:49 | XR_ITS ---
PROCEDURE INFORMATION: Exam: XR Chest Exam date and time: 11/09/2020 6:49 AM Age: 65 years old Clinical indication: Shortness of breath; Patient HX: Covid-19- SOB TECHNIQUE: Imaging protocol: XR of the chest. Views: 1 view. COMPARISON: CR XR CHEST PORTABLE 11/08/2020 7:34 AM FINDINGS: Lungs: Stable patchy bilateral infiltrates with peripheral predominance. Pleural spaces: Unremarkable. No pleural effusion. No pneumothorax. Heart/Mediastinum: Unremarkable. No cardiomegaly. Bones/joints: Unremarkable. IMPRESSION: Stable bilateral infiltrates described above.
[2020-11-09 07:25] LABS: Basophils % 0.7 % (0.1-2.0); Hemoglobin 13.8 g/dL (12.2-16.2); Lymphocytes # 0.7 K/mm3 (0.7-4.5); Lymphocytes % 22.2 % (10-50); Mean Corpuscular HGB Conc 32.7 g/dL (31.8-35.4); Mean Corpuscular Volume 88.5 fl (81-99); Mean Platelet Volume 9.3 fl (7.4-10.4); Monocytes # 0.3 K/mm3 (0.1-1.0); Monocytes % 8.5 % (1.7-9.3); Neutrophils # 2.3 K/mm3 (1.8-7.8); Neutrophils % 68.5 % (37.0-80.0); Platelet Count 155 K/mm3 (142-424); Red Blood Count 4.75 M/mm3 (4.20-5.40); Red Cell Distribution Width 14.7 % (11.5-17.5); White Blood Count 3.3 K/mm3 (4.8-10.8)
[2020-11-09 07:34] LABS: Alanine Aminotransferase 22 U/L (12-78); Albumin Level 3.2 g/dl (3.5-5.0); Albumin/Globulin Ratio 1.1 (1.1-1.8); Alkaline Phosphatase 72 U/L (38-126); Anion Gap 13.4 mEq/L (5-15); Aspartate Amino Transferase 46 U/L (14-36); Bilirubin,Total 0.3 mg/dl (0.2-1.3); Blood Urea Nitrogen 18 mg/dl (7-17); Calcium 8.7 mg/dl (8.4-10.2); Carbon Dioxide 25 mmol/L (22.0-30.0); Chloride 106 mmol/L (98-107); Creatinine Clearance Estimated 75 mL/min (50-200); Estimated Glomerular Filt Rate 72 ml/min (>60); GFR (African American) 87 ML/MIN (>60); Globulin 2.9 g/dL (1.3-3.2); Glucose 125 mg/dl (74-100); Potassium 4.4 mmoL/L (3.5-5.1); Sodium 140 mmol/L (136-145); Total Protein,Serum 6.1 g/dl (6.3-8.2)
--- NOTE | 2020-11-09 08:42 | HMH.ACPN2 ---
Internal Medicine - PN: Subj *Date: 11/10/20 *Time: 08:09 Interval history: pt reports doing ok - cxr report pending Exam Vital signs and Labs for Last 24 Hours: Temp Pulse Resp BP Pulse Ox 98.7 F 71 18 154/82 H 92 L 11/09/20 08:00 11/09/20 08:00 11/09/20 08:00 11/09/20 08:00 11/09/20 08:00 Laboratory Results - last 24 hr 11/08/20 10:34: Ferritin 846 H, C-Reactive Protein 54.5 H 11/08/20 15:10: D-Dimer 1.11 H 11/09/20 06:54: WBC 3.3 L, RBC 4.75, Hgb 13.8, Hct 42.0, MCV 88.5, MCH 29.0, MCHC 32.7, RDW 14.7, Plt Count 155 D, MPV 9.3, Neut % (Auto) 68.5, Lymph % (Auto) 22.2, [place] % (Auto) 8.5, Eos % (Auto) 0.0 L, Baso % (Auto) 0.7, Neut # (Auto) 2.3, Lymph # (Auto) 0.7, [place] # (Auto) 0.3, Eos # (Auto) 0.0, Baso # (Auto) 0.0 11/09/20 06:54: Sodium 140, Potassium 4.4, Chloride 106, Carbon Dioxide 25, Anion Gap 13.4, BUN 18 H, Creatinine 0.80, Estimated Creat Clear 75, Estimated GFR 72, Est GFR ( Amer) 87, Glucose 125 H, Calcium 8.7, Total Bilirubin 0.3, AST 46 H, ALT 22, Alkaline Phosphatase 72, Total Protein 6.1 L, Albumin 3.2 L, Globulin 2.9, Albumin/Globulin Ratio 1.1 I & O for Last 24 hours: Intake & Output 11/06/20 11/07/20 11/08/20 11/09/20 11:59 11:59 11:59 11:59 Intake Total 2847 / 2847 2445 / 2445 480 / 480 Output Total 300 / 300 Balance 2847 / 2847 2145 / 2145 480 / 480 Weight 181 lb 4 oz 185 lb 6 oz 190 lb 6 oz - Constitutional no acute distress, obese - *Routine HEENT Exam Head: Present: normocephalic Eye: Present: EOMI, PERRL ENT: Present: mucous membranes dry - *Routine Neck Exam Absent: JVD - *Routine Respiratory Exam Present: decreased breath sounds - *Routine Cardiovascular Exam Present: RRR, murmur - *Routine Abdominal Exam Present: soft - *Routine Extremities Exam Absent: Carlito's sign - *Routine Skin Exam Present: intact - *Routine Neurological Exam Present: alert, CN II-XII intact - Routine Psychiatric Exam Present: normal affect Assessment and Plan (1) JIN (acute kidney injury) Status: Acute Category: Medical Code(s): N17.9 - Acute kidney failure, unspecified (2) COVID-19 Status: Acute Category: Medical Code(s): U07.1 - COVID-19 (3) Coronary artery disease Status: Chronic Qualifiers: Coronary Disease-Associated Artery/Lesion type: [place] artery [place] vs. transplanted heart: [place] heart Associated angina: without angina Qualified Code(s): I25.10 - Atherosclerotic heart disease of [place] coronary artery without angina pectoris Category: Medical Code(s): I25.10 - Atherosclerotic heart disease of [place] coronary artery without angina pectoris (4) Tobacco use disorder, continuous Status: Chronic Category: Medical Code(s): F17.209 - Nicotine dependence, unspecified, with unspecified nicotine-induced disorders (5) Overweight (BMI 25.0-29.9) Status: Acute Category: Medical Code(s): E66.3 - Overweight (6) Thrombocytopenia Status: Acute Category: Medical Code(s): D69.6 - Thrombocytopenia, unspecified (7) Head lice infestation Status: Acute Category: Medical Code(s): B85.0 - Pediculosis due to Pediculus humanus capitis
--- NOTE | 2020-11-09 19:29 | PC.NURSE ---
SHE IS AOX4, HAS TOLERATED RA WELL T/O SHIFT WITH SATS 95% OR ABOVE, SHE HAS NOT C/O PAIN, SHE DENIES N/V/D.
--- NOTE | 2020-11-10 02:14 | PC.NURSE ---
A&OX4. PT CONTINUES TO TOLERATE RA, O2 SAT IN LOW 90S. PT HAS HAD NO C/O THUS FAR THIS SHIFT. PT HAS RESTED WELL MAJORITY OF SHIFT. VSS WILL CONTINUE TO MONITOR.
[2020-11-10 03:51] VITALS: BP 159/85; PULSE 63; RESP 16; TEMP 36.5; O2SAT 90
[2020-11-10 04:55] VITALS: BMI 30.4
[2020-11-10 06:33] LABS: Basophils # 0.1 K/mm3 (0-0.2); Basophils % 1.7 % (0.1-2.0); Eosinophils % 0.1 % (0.1-12.0); Lymphocytes # 0.9 K/mm3 (0.7-4.5); Lymphocytes % 15.4 % (10-50); Mean Corpuscular HGB Conc 33.4 g/dL (31.8-35.4); Mean Corpuscular Hemoglobin 29.7 pg (27.0-31.2); Mean Corpuscular Volume 88.8 fl (81-99); Mean Platelet Volume 8.5 fl (7.4-10.4); Monocytes # 0.6 K/mm3 (0.1-1.0); Monocytes % 9.8 % (1.7-9.3); Neutrophils # 4.2 K/mm3 (1.8-7.8); Platelet Count 167 K/mm3 (142-424); Red Blood Count 4.73 M/mm3 (4.20-5.40); Red Cell Distribution Width 14.6 % (11.5-17.5); White Blood Count 5.8 K/mm3 (4.8-10.8)
[2020-11-10 06:43] LABS: Alanine Aminotransferase 22 U/L (12-78); Alkaline Phosphatase 74 U/L (38-126); Anion Gap 9.9 mEq/L (5-15); Aspartate Amino Transferase 41 U/L (14-36); Bilirubin,Total 0.4 mg/dl (0.2-1.3); Blood Urea Nitrogen 19 mg/dl (7-17); Calcium 8.2 mg/dl (8.4-10.2); Carbon Dioxide 26 mmol/L (22.0-30.0); Chloride 105 mmol/L (98-107); Creatinine Clearance Estimated 75 mL/min (50-200); Estimated Glomerular Filt Rate 84 ml/min (>60); GFR (African American) 101 ML/MIN (>60); Glucose 115 mg/dl (74-100); Potassium 3.9 mmoL/L (3.5-5.1); Sodium 137 mmol/L (136-145)
[2020-11-10 08:00] VITALS: BP 166/88; PULSE 78; RESP 16; TEMP 36.4; O2SAT 89
--- NOTE | 2020-11-10 08:55 | HMH.DCSUM ---
General - General Admission date:: 11/06/20 Discharge date: 11/10/20 HPI HPI: this pt presents to the ed - Patient c/o diarrhea for the last three weeks. Patient denies any chronic GI disease, patient denies any nausea and vomiting. Patient denies abdominal pain. Patient reports every bowel movement has been diarrhea for the last three weeks. Is a 65-year-old female presents the ED today for diarrhea x3 weeks and symptoms of dehydration. Patient states that she generally feels unwell, states that she has been having profuse diarrhea and for the last couple of days has not been able to keep up with her losses. Denies any blood being in the diarrhea endorses occasional abdominal cramping pain but does not have any other symptoms at this time. No chest pain shortness of breath cough fever. pt was found to have jesusita and was admitted and found also to have covid-19 Hospital Course Hospital Course: Is a 65-year-old female presents the ED today for diarrhea x3 weeks and symptoms of dehydration. Patient states that she generally feels unwell, states that she has been having profuse diarrhea and for the last couple of days has not been able to keep up with her losses. Denies any blood being in the diarrhea endorses occasional abdominal cramping pain but does not have any other symptoms at this time. No chest pain shortness of breath cough fever. pt was found to have jesusita and was admitted and found also to have covid-19 11/07/20 CXR: FINDINGS: Lungs: There are bilateral peripheral pulmonary infiltrates consistent with an atypical pneumonia, including viral pneumonia. Pleural spaces: No pleural effusion. No pneumothorax. Heart/Mediastinum: There is mild cardiomegaly. Bones/joints: Unremarkable. IMPRESSION: There are bilateral peripheral pulmonary infiltrates consistent with an atypical pneumonia, including viral pneumonia. Electronically signed by Rayumndo Rainey MD 11/09/20 CXR: FINDINGS: Lungs: Stable patchy bilateral infiltrates with peripheral predominance. Pleural spaces: Unremarkable. No pleural effusion. No pneumothorax. Heart/Mediastinum: Unremarkable. No cardiomegaly. Bones/joints: Unremarkable. IMPRESSION: Stable bilateral infiltrates described above. Electronically signed by Ang Mckay MD Pulmonology has seen and recommends: Plan: -Initiate the patient on trilegy inhaler along with DuoNebs every 6 hours as needed -Initiate long-term oxygen therapy at 2 L. -Continue ceftriaxone azithromycin, will wean to levofloxacin to complete a total of 5-day course on discharge -Continue remdesivir and dexamethasone until discharge, will continue prednisone for total of 5 days on discharge #Thank for involving pulmonary in this patient care. We will continue continue to follow and follow in the clinic in 4 weeks During her stay she has been treated with azithromycin, ceftriaxone, dexamethasone, and remdesivir IV. 65-year-old female patient sitting up in bed she denies any shortness of breath during night, currently oxygenation is 91% on room air. Discussed patient being discharged today she is agreeable to this and verbalizes importance of following up with PCP and pulmonology PLAN: 1. We will discharge home today 2. Levofloxacin 750 mg daily x 3 days 3. Trelegy inhaler daily 4. Follow-up with PCP in 1 week 5. Follow-up with pulmonology in 4 weeks 6. Prednisone 40 mg daily x 3 days Objective Vital signs: Temp Pulse Resp BP Pulse Ox 97.5 F L 78 16 166/88 H 89 L 11/10/20 08:00 11/10/20 08:00 11/10/20 08:00 11/10/20 08:00 11/10/20 08:00 no acute distress - *Routine HEENT Exam Head: Present: normocephalic Eye: Present: EOMI ENT: Present: mucous membranes moist - *Routine Neck Exam Present: trachea midline. Absent: tracheal deviation - *Routine Respiratory Exam Present: wheezes. Absent: accessory muscle use - *Routine Cardiovascular Exam Present: RR
--- NOTE | 2020-11-10 11:05 | SW/DCPLANNER ---
Addendum entered by Judy Chadwick 11/10/20 12:28: Kathe has stated that equipment will be delivered to [facility]. Addendum entered by Judy Chadwick 11/10/20 11:28: Dr Patel has also requested that this patient have a nebulizer machine at home. I have also faxed this order to [facility]. Original Note: Due to patient being COVID + and RA sats at 89 I will order this patient home O2. Patient information/order has been faxed to [facility].
[2020-11-10 12:00] VITALS: BP 169/98; PULSE 78; RESP 16; TEMP 36.4; O2SAT 91
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
--- NOTE | 2020-11-10 14:30 | PC.NURSE ---
Attempted to complete a 6 minute walk to qualify PT for oxygen. PT sitting comfortably on the side of the bed SPO2 88% on Room Air. Pt did get up and walked to the bathroom and SPO2 86%. Pt did recover once sitting SPO2 89%. Pt remains stable. RN aware.
== END 2020-11-10 15:37 | disposition home or self-care (01) | DRG 177 ==
LOC: ER 19:15 → ICU 21:32 → 2ND 11-07 10:43
PROVIDERS: Internal Medicine Pulmonary Disease; Admitting Provider Family Medicine; Emergency Provider Student in an Organized Health Care Education/Training Program; PCP Emergency Medicine; Visit Provider Emergency Medicine
DX: U07.1 COVID-19 (principal); J12.82 Pneumonia due to coronavirus disease 2019; N17.9 Acute kidney failure, unspecified; J44.0 Chronic obstructive pulmonary disease with (acute) lower respiratory infection; D69.6 Thrombocytopenia, unspecified; F17.210 Nicotine dependence, cigarettes, uncomplicated; B85.0 Pediculosis due to Pediculus humanus capitis; I25.10 Atherosclerotic heart disease of native coronary artery without angina pectoris; I10 Essential (primary) hypertension; I25.2 Old myocardial infarction; E78.5 Hyperlipidemia, unspecified; Z95.5 Presence of coronary angioplasty implant and graft; Z85.43 Personal history of malignant neoplasm of ovary; Z85.828 Personal history of other malignant neoplasm of skin; Z99.81 Dependence on supplemental oxygen; Z86.73 Personal history of transient ischemic attack (TIA), and cerebral infarction without residual deficits; Z91.19 Patient's noncompliance with other medical treatment and regimen
CPT/HCPCS: 96365; 36415; 71045; 80048; 80053; 81001; 82728; 83605; 83735; 84484; 85025; 85378; 86140; 87506; 93005; 94760; 96366; 99284; J0456; J2405; U0003

== ENCOUNTER 2022-01-06 09:54 | Emergency (ER) | payer MEDICARE, SELFPAY ==
[2022-01-06] VITALS (9 sets, daily range): BP systolic 145–194; BP diastolic 78–108; PULSE 68–96; RESP 18–20; TEMP 36.8; O2SAT 94–99; BMI 24.2
--- NOTE | 2022-01-06 10:04 | ECG_ITS ---
APPROVED REPORT Exam: Resting ECG HR:83 bpm ECG Measurements Heart Rate 83 AXES MA 146 P 49 QRSd 98 QRS -21 QT 405 T 104 QTc 444 Conclusion SINUS RHYTHM LEFT VENTRICULAR HYPERTROPHY AND ST-T CHANGE [VOLTAGE CRITERIA PLUS ST/T ABNORMALITY] PROBABLE LATERAL MYOCARDIAL INFARCTION , OF INDETERMINATE AGE [35 ms Q WAVE IN I/aVL/V5/V6] ABNORMAL ECG UNCONFIRMED REPORT Electronically signed by : Benedict Meyer MD 01/07/2022 13:29:00
--- NOTE | 2022-01-06 10:17 | HMH.EDGENADL ---
Discharge Plan Disposition Patient Disposition: Home, Self-Care Condition: Good Prescriptions Prescriptions: New carvedilol [Coreg] 6.25 mg tablet 6.25 mg PO BID Qty: 60 0RF Rx Instructions: must administer with a meal/food No Action Gerry Larata 100-62.5-25 mcg blister with device 1 inh INHALATION DAILY 90 Days Qty: 90 3RF albuterol sulfate 90 mcg/actuation HFA aerosol inhaler 1 inh INHALATION Q6H PRN (Reason: shortness of breath or wheezing) 90 Days Qty: 8.5 3RF ipratropium-albuterol 0.5 mg-3 mg(2.5 mg base)/3 mL solution for nebulization 3 ml INHALATION Q6H PRN (Reason: shortness of breath or wheezing) Qty: 90 6RF Referrals Follow up/Referrals: Nico Hayward MD [Primary Care Provider] - See instructions Ryan Rice MD [Staff Physician] - See instructions Activity Restrictions/Add. Instructions Additional Instructions/Restrictions: Holter monitor applied in the emergency department. Coreg as prescribed. Qbng-qcu-epwqnek aspirin 81 mg daily. Follow-up with Dr. Hayward and with Dr. Rice in the office. Call for appointment. Clinical Impressions Clinical Impression: Syncope and collapse, Hypertension Discharge ED Provider: Eduardo Horner General Adult HPI General Chief complaint: Syncope Stated complaint: syncope Time Seen by Provider: 01/06/22 10:25 History of Present Illness HPI narrative: History obtained from patient and daughter. Patient states that she blacked out for just a second, went down to the floor onto her knees. States that she spit up a little bit afterwards. Prior to the episode she says she felt like her blood pressure was going up, which makes her feel like the top of her head is going to come off. All symptoms have now completely resolved and she feels totally back to normal. Daughter states that the patient's friend, who is with the patient at the time, said that she had passed out for a minute, but the patient denies any prolonged loss of consciousness. The patient states that she has had this exact same thing happened to her numerous times in the past. Has never seen a physician for it. She has a history of carotid artery disease, status post stent 2 years ago. She has had cardiac stents for coronary artery disease. She has had a heart attack according to her daughter. She is noncompliant with medications. She currently does not take any medications, including aspirin. She was supposed to be on blood pressure medication, but says that the blood pressure medication made her feel worse than her blood pressure, so she stopped taking it. She has not seen a noise tester in about 2 years. Her primary care provider is Dr. Tinoco and she states she has not seen him in about a year. She is a smoker. She denies alcohol or drug use. Related Data Previous Rx's Medication Instructions Recorded albuterol sulfate 90 mcg/actuation 1 inh inhalation Q6H PRN shortness 11/10/20 aerosol inhaler of breath or wheezing 90 days #8.5 grams fluticasone fur. 100 mcg-umeclid 1 inh inhalation DAILY 90 days #90 11/10/20 62.5 mcg-vilant 25 mcg ea inhalat.powder (Trelegy Ellipta) ipratropium 0.5 mg-albuterol 3 mg 3 ml inhalation Q6H PRN shortness 11/10/20 (2.5 mg base)/3 mL nebulization of breath or wheezing #90 mL soln carvedilol 6.25 mg tablet (Coreg) 6.25 mg PO BID #60 tabs 01/06/22 Allergies Allergy/AdvReac Type Severity Reaction Status Date / Time codeine [CODEINE] Allergy Unknown Unknown Verified 11/20/20 15:44 allergy reaction morphine AdvReac Severe Hives Verified 11/20/20 15:44 PFSH PFSH Social History Smoking Status: Current every day smoker tobacco type: cigarettes packs per day: 1 alcohol intake: never substance use type: denies use current occupational status: unemployed Travel in the last 8 weeks: None caffeine: Yes ROS Obtained: Yes Systems reviewed as appropriate & no additional complaints except as
--- NOTE | 2022-01-06 10:38 | CT_ITS ---
FINAL REPORT CLINICAL HISTORY: headache, syncope FINDINGS: Axial images of the head were obtained without contrast. Coronal reformatted images were also obtained. This study was performed with techniques to keep radiation doses as low as reasonably achievable (ALARA). Individualized dose reduction techniques using automated exposure control or adjustment of mA and/or kV according to the patient's size were employed. There is generalized age-appropriate atrophy. Periventricular low-attenuation areas are seen consistent with moderate chronic ischemic changes. There is a presumed chronic lacunar infarct in the posterior ioana which is stable. There is no evidence of intracranial hemorrhage or mass. There is no evidence of acute infarct. There is no evidence of shift of the midline structures. No skull abnormality is seen on the bone window images. There is mild mucosal thickening of the sphenoid sinuses and several ethmoid air cells. IMPRESSION: Atrophy and moderate periventricular chronic ischemic changes. No acute intracranial abnormality identified. Reviewed, Interpreted and Dictated by Melchor Verduzco III, MD Transcribed by Amy Broderick Authenticated and [facility][1]
--- NOTE | 2022-01-06 10:45 | PC.NURSE ---
rad at the bedside
[2022-01-06 10:51] LABS: Chloride 103 mmol/L (98-107); Sodium 142 mmol/L (136-145)
[2022-01-06 10:52] LABS: Basophils # 0.1 K/mm3 (0-0.2); Basophils % 0.7 % (0.1-2.0); Eosinophils # 0.4 K/mm3 (0.0-0.4); Eosinophils % 3.9 % (0.1-12.0); Hemoglobin 13.5 g/dL (12.2-16.2); Lymphocytes # 1.5 K/mm3 (0.7-4.5); Lymphocytes % 15.2 % (10-50); Mean Corpuscular HGB Conc 32.1 g/dL (31.8-35.4); Mean Corpuscular Hemoglobin 28.6 pg (27.0-31.2); Mean Corpuscular Volume 89.2 fl (81-99); Mean Platelet Volume 7.9 fl (7.4-10.4); Monocytes # 0.4 K/mm3 (0.1-1.0); Monocytes % 4.3 % (1.7-9.3); Neutrophils # 7.3 K/mm3 (1.8-7.8); Neutrophils % 75.9 % (37.0-80.0); Platelet Count 337 K/mm3 (142-424); Potassium 3.9 mmoL/L (3.5-5.1); Red Blood Count 4.71 M/mm3 (4.20-5.40); White Blood Count 9.6 K/mm3 (4.8-10.8)
[2022-01-06 10:54] LABS: Alanine Aminotransferase 14 U/L (12-78); Alkaline Phosphatase 100 U/L (38-126); Aspartate Amino Transferase 26 U/L (14-36); Bilirubin,Total 0.3 mg/dl (0.2-1.3); Blood Urea Nitrogen 18 mg/dl (7-17); Creatinine Clearance Estimated 45 mL/min (50-200); Estimated Glomerular Filt Rate 41 ml/min (>60); GFR (African American) 49 ML/MIN (>60)
[2022-01-06 10:55] LABS: Albumin Level 4.1 g/dl (3.5-5.0); Albumin/Globulin Ratio 1.2 (1.1-1.8); Anion Gap 15.9 mEq/L (5-15); Calcium 9.7 mg/dl (8.4-10.2); Carbon Dioxide 27 mmol/L (22.0-30.0); Globulin 3.4 g/dL (1.3-3.2); Glucose 127 mg/dl (74-100); Total Protein,Serum 7.5 g/dl (6.3-8.2)
[2022-01-06 11:09] LABS: Troponin I 0.01 ng/ml (0.00-0.034)
--- NOTE | 2022-01-06 12:25 | PC.NURSE ---
rounded on pt and asked if they needed anything. pt stated that they had no needs at this time
--- NOTE | 2022-01-06 13:10 | PC.NURSE ---
called respiratory per ER doctor to as if they had a halter monitor to wear home. made contact with respiratory advised they would bring one down
--- NOTE | 2022-01-06 13:25 | PC.NURSE ---
Placed 48hour holter monitor on Pt. Instructions given Pt voiced understanding.
--- NOTE | 2022-01-06 13:30 | PC.NURSE ---
rt here for halter monitor
[2022-01-06 14:22] LABS: Troponin I 0.01 ng/ml (0.00-0.034)
== END 2022-01-06 14:00 | disposition home or self-care (01) ==
PROVIDERS: Emergency Provider Emergency Medicine; PCP Emergency Medicine
DX: R55 Syncope and collapse (principal); I10 Essential (primary) hypertension; Z88.5 Allergy status to narcotic agent; Z72.0 Tobacco use; I25.10 Atherosclerotic heart disease of native coronary artery without angina pectoris; E78.5 Hyperlipidemia, unspecified
CPT/HCPCS: 70450; 80053; 84484; 85025; 93005; 93225; 93226; 99284

== ENCOUNTER → 2022-02-22 10:53 | Outpatient (CLI) | payer MEDICARE, SELFPAY ==
--- NOTE | 2022-02-22 | CA_ITS ---
APPROVED REPORT Exam: Pharmacologic Technologist: Paris Alcaraz, Ht: 5 ft 6 in Wt: 165 lbs BSA: 1.84 m2 HR: 84 bpm BP: 166/73 mmHg Medical History Medications: Aspirin,,,,, Coreg,,,,, Albuterol,,,,, Trelegy,,,,, Stress Test Details Test: LEXISCAN Reason for pharmacologic stress test: physical limitation. HR Resting HR: 90 bpm Max Heart Rate (APMHR): 153.423401 bpm Max HR Achieved: 107 bpm Target HR (85% APMHR): 130.052563 bpm % of APMHR: 69.93 Recovery HR: 103 bpm BP Resting BP: 166.0/73.0 mmHg Max BP: 166.0/73.0 mmHg Recovery BP: 122.0/78.0 mmHg ECG Resting ECG: NSR, frequent ectopic beats, LVH, cannot R/O old inferior or latend MA, ST-T abns Clinical Exercise duration: 04:00 min Highest Stage Achieved: Stress ECG Conclusion Symptoms: Mild SOA & head discomfort. No CP. Arrhythmias/Ectopy: Occ premature ectopic complexes, probably junctional beats. ST-T Changes: No significant changes compared to baseline. Conclusion: Non-diagnostic Lexiscan stress. Myoview images reported separately. Test Summary REST 05:57 . . 90 . 166/ 73 . . Stage 1 01:00 . . 100 . . . . Stage 2 01:00 . . 103 . 126/ 76 . . Stage 3 01:00 . . 103 . 131/ 71 . . Stage 4 01:00 . . 101 . 114/ 60 . Stop exercise at 04:00 RECOVERY 01:00 . . 99 . . . . RECOVERY 02:00 . . 102 . 120/ 71 . . RECOVERY 03:00 . . 102 . 122/ 78 . . RECOVERY 03:31 . . 101 . 122/ 78 . . Electronically signed by : Dorian Ferguson MD 02/22/2022 19:45:38
--- NOTE | 2022-02-22 10:56 | CA_ITS ---
FINAL REPORT CLINICAL HISTORY: ARCENIO,SYNCOPE,STENT LT CARTOID,SMOKER,HTN,HX TIA/CVA FINDINGS: An ultrasound of the carotid arteries was performed. Duplex Doppler evaluation with spectral analysis was performed. The peak systolic velocity of the right common carotid artery is 73 cm/s. The peak systolic velocity of the right internal carotid artery is 102 cm/s and end diastolic velocity 34 cm/s. A small amount of plaque is present. The right external carotid artery is patent. The right vertebral does not demonstrate flow which could be due to occlusion or hypoplasia. ICA/CCA ratio: 1.76 The peak systolic velocity of the left common carotid artery is 76 cm/s. The peak systolic velocity of the left internal carotid artery is 103 cm/s and end diastolic velocity 28 cm/s. A small amount of plaque is present. The left external carotid artery is patent. The left vertebral artery is patent with antegrade flow. ICA/CCA ratio: 1.35 IMPRESSION: Less than 50% bilateral carotid stenosis. No flow recorded in the right vertebral artery which may be due to occlusion or hypoplastic vessel. Reviewed, Interpreted and Dictated by Melchor Verduzco III, MD Transcribed by Cy Yu Authenticated and [facility]
--- NOTE | 2022-02-22 10:56 | CA_ITS ---
APPROVED REPORT EXAM: Comprehensive 2D, Doppler, and color-flow Echocardiogram Inseam Leveler: Florinda Yoder, ANGELINA, RVS Ht: 5 ft 6 in Wt: 165lbs BSA: 1.84 BP: 110/86 mmHg Indications: CAD, Abn EKG, Syncope, Smoker, HTN. HLD 2D Dimensions IVSd 0.74 cm LVEF (Visual) 18.90 % PWd 1.09 cm LA Volume 71.70 mL LVDd 4.71 cm LA Volume Index 37.90 mL/m2 (M/F) 16-34 LVDs 4.31 cm Aortic Root 3.13 cm Left Atrium 2.43 cm LVOT 1.95 cm (M/F) 1.5-2.5 M-Mode Dimensions LA Diam 2.92 cm (1.9-4.0) Ao Diam 3.63 cm (2.0-3.7) EPSs 2.82 cm TAPSE 2.20 (<1.7) LV Diastology E Decel Time 183.00 (160-240 msec) E/A Ratio 0.72 MED E' 2.20 (< 7 cm/sec) MED A' 7.20 cm/s E'/MED E' Ratio 31.59 (>14) LAT E' 4.20 (<10 cm/sec) LAT A' 6.80 cm/s E/LAT E' Ratio 16.55 (>14) Aortic Valve LVOT Max 107.00 (70-110 cm/s) LVOT VTI 21.69 cm AoV Peak Isaias. 176.00 (50-130 cm/s) AO Peak GR. 12.40 mmHg AO Mean GR. 6.10 (<5 mmHg) AO VTI 33.22 (18-25 cm) RYLIE (VTI) 1.95 (2.5-4.5 cm2) Mitral Valve MV A Velocity 97.00 (40-130 cm/s) E/A Ratio 0.72 MV Decel. Time 183.00 (160-240 ms) MV PHT 53.00 ms Pulmonary Valve PV Peak Velocity 81.00 (50-150 cm/s) Tricuspid Valve TR P. Velocity 10.00 cm/s Left Ventricle Technically difficult study because of the patient factors and poor acoustic windows. Left atrium is mildly enlarged, left ventricle is normal size mild concentric left ventricular hypertrophy, estimated ejection fraction approximately 40 to 45%, inferior wall appears to be moderately hypokinetic. Grade 1 diastolic dysfunction seen without tissue Doppler evidence of raise left atrial pressure. Right Ventricle Right atrium and right ventricle are mildly enlarged with normal contractility. Aortic Valve Aortic valve is minimally thickened and fibrosed there is no aortic stenosis or aortic insufficiency. Mitral Valve Mitral valve has mitral calcification, leaflets are minimally thickened, there is no mitral stenosis, there is mild mitral regurgitation. Tricuspid Valve Tricuspid valve grossly normal, there is mild tricuspid regurgitation tricuspid regurgitation jet velocity is inadequate for calculation of the right ventricular systolic pressure. Pulmonic Valve Pulmonic valve is poorly visualized. Great Vessels Aortic root is normal size. Inferior vena cava is poorly visualized. Pericardium Small pericardial effusion noted Conclusion 1. Mild biatrial normal, normal left ventricular size, estimated ejection fraction 40 to 45% with segmental wall motion abnormality described above, grade 1 diastolic dysfunction seen without tissue Doppler evidence of reduced left atrial pressure. 2. Mildly enlarged left ventricle with normal contractility. 3. Small pericardial effusion noted. 4. Mild mitral and tricuspid regurgitation. 5. Inferior vena cava is poorly visualized. Electronically signed by : Dorian Ferguson MD 02/22/2022 18:40:55
--- NOTE | 2022-02-22 11:44 | NM_ITS ---
APPROVED REPORT Exam: Nuclear Stress Test Indication: syncope Patient Location: Outpatient Stress Tech: Paris Minor [place] Tech:JESSIKA Pelletier RT(R)(N) Ht: 5 ft 6 in Wt: 163 lbs Bra Size: c HR: 90 bpm BP: 166/73 mmHg BSA: 1.83 m2 TID: 1.06 BMI: 26.3 History: syncope Procedure: Patient received a 0.4 mg of intravenous Lexiscan, resting heart rate 90 bpm, resting blood pressure 166/73 mmHg, with Lexiscan maximum heart rate achived was 107 bpm which is Less than 85 % of the maximum predicted heart rate and blood pressure was 166/73 mmHg. With Lexiscan, patient denied any complaint of chest pain. Electrocardiogram Resting electrocardiogram showed sinus rhythm inferior infarct age-indeterminate, with Lexiscan there is less than 1.[address] segment depression noted from the baseline EKG. The EKG portion of the Lexiscan is nondiagnostic. Cardiac Stress and Resting SPECT Images: Cardiac Stress and Resting SPECT images were obtained using technetium 99m Myoview 32.7 mCi stress and 10.76 mCi at rest. Gated SPECT for analysis of segmental wall motion and calculation of the ejection fraction also done. Cardiac stress of the suspect may show a fixed defect involving the inferior, inferolateral and posterolateral wall and a fixed Consistent with extensive area of myocardial scarring without significant nikky-infarct ischemia, computer derived ejection fraction is 22% with marked inferior, inferolateral and posterolateral wall hypokinesis, right ventricle is normal size and contractility. Conclusion: 1. The EKG portion of the Lexiscan is nondiagnostic. 2. Scintigraphic evidence of myocardial scarring involving the inferior, inferolateral and posterolateral wall without significant nikky-infarct ischemia, computer derived ejection fraction is 22% with multiple segmental wall motion abnormality described above, right ventricle is normal size and contractility. 3. Abnormal Lexiscan Myoview study. Electronically signed by : Dorian Ferguson MD 02/22/2022 19:49:07
--- NOTE | 2022-02-22 13:33 | HMH.ITSHM ---
Current Home Medications as stated by this patient Eddi Hawkins or customer development representative. []IPRATROPIUM FLUTICSONE CARVEDILOL ASA ALBUTEROL
== END ==
LOC: RT 10:54
PROVIDERS: PCP Emergency Medicine; Visit Provider Physician Assistant
DX: R55 Syncope and collapse (principal); R94.31 Abnormal electrocardiogram [ECG] [EKG]
CPT/HCPCS: 78452; 93017; 93306; 93880; A9502; J2785

== ENCOUNTER → 2022-03-07 12:30 | Outpatient (CLI) | payer MEDICARE, SELFPAY ==
[2022-03-07 13:40] LABS: Basophils # 0.1 K/mm3 (0-0.2); Eosinophils # 0.2 K/mm3 (0.0-0.4); Eosinophils % 2.5 % (0.1-12.0); Hematocrit 42.3 % (37.0-47.0); Hemoglobin 13.8 g/dL (12.2-16.2); Lymphocytes % 22.5 % (10-50); Mean Corpuscular HGB Conc 32.6 g/dL (31.8-35.4); Mean Corpuscular Hemoglobin 27.7 pg (27.0-31.2); Mean Corpuscular Volume 84.8 fl (81-99); Mean Platelet Volume 7.9 fl (7.4-10.4); Monocytes # 0.5 K/mm3 (0.1-1.0); Monocytes % 5.4 % (1.7-9.3); Neutrophils # 6.2 K/mm3 (1.8-7.8); Neutrophils % 68.6 % (37.0-80.0); Platelet Count 310 K/mm3 (142-424); Red Blood Count 4.98 M/mm3 (4.20-5.40); Red Cell Distribution Width 14.8 % (11.5-17.5); White Blood Count 9.1 K/mm3 (4.8-10.8)
[2022-03-07 14:14] LABS: Chloride 104 mmol/L (98-107); Sodium 138 mmol/L (136-145)
[2022-03-07 14:15] LABS: Potassium 4.7 mmoL/L (3.5-5.1)
[2022-03-07 14:17] LABS: Blood Urea Nitrogen 14 mg/dl (7-17); Estimated Glomerular Filt Rate 41 ml/min (>60); GFR (African American) 49 ML/MIN (>60)
[2022-03-07 14:18] LABS: Anion Gap 12.7 mEq/L (5-15); Calcium 9.7 mg/dl (8.4-10.2); Carbon Dioxide 26 mmol/L (22.0-30.0); Glucose 74 mg/dl (74-100)
== END ==
PROVIDERS: PCP Emergency Medicine; Visit Provider Nurse Practitioner
DX: E78.5 Hyperlipidemia, unspecified (principal); F17.209 Nicotine dependence, unspecified, with unspecified nicotine-induced disorders; I25.10 Atherosclerotic heart disease of native coronary artery without angina pectoris; R55 Syncope and collapse; R94.30 Abnormal result of cardiovascular function study, unspecified; R94.31 Abnormal electrocardiogram [ECG] [EKG]
CPT/HCPCS: 36415; 80048; 85025

== ENCOUNTER 2022-03-08 09:28 | Day surgery (SDC) | payer MEDICARE, SELFPAY ==
[2022-03-08] VITALS (14 sets, daily range): BP systolic 129–190; BP diastolic 70–114; PULSE 74–88; RESP 14–19; TEMP 36.6; O2SAT 92–98; BMI 26.9
--- NOTE | 2022-03-08 07:03 | IR_ITS ---
APPROVED REPORT Patient Location: Outpatient PROCEDURES Left heart catheterization Left ventriculogram Selective coronary angiogram Intravascular ultrasound to the LAD and left main artery INDICATION Known coronary disease, Abnormal stress test, Ambiguous coronary artery disease by angiography, Informed consent was obtained prior to the procedure. COMPLICATIONS None Estimated Blood Loss: less than 10 mls TECHNIQUE 1% lidocaine used anesthetize right groin the right femoral artery was accessed via the Salinger technique and a 4 Mosotho sheath was placed in the right femoral artery. A JR4 JR4 catheter used to perform left heart catheterization left ventriculogram and selective coronary angiogram. At the end the diagnostic angiogram therapeutic heparin was administered and the 4 Mosotho sheath was exchanged for a 6 Mosotho sheath and JL 4 guide catheter was used to intubate the left main artery followed by wires being placed down the LAD. Intravascular ultrasound probe was used to interrogate the left main artery LAD and circumflex artery. At the end of the procedure the apparatus was removed the groin is reprepped closure change sheath was removed and hemostasis was achieved using Perclose device patient was transferred to the postop holding area in stable condition ANGIOGRAPHIC RESULTS The left main artery Has a distal highly eccentric 30% The left anterior descending artery Has an ostial 70 to 80% stenosis followed by a stent which is widely patent. The LAD then has diffuse 30% stenosis The circumflex artery Is a dominant vessel and has an ostial 70% stenosis with a large stent in the first obtuse marginal artery which is widely patent and a stent in the second obtuse marginal artery which is also widely patent The right coronary artery Nondominant with a proximal 70% stenosis and a distal eccentric 60% The CROCKETT ventriculogram reveals Dilated ventricle with estimate ejection fraction 55% The left ventricular end-diastolic pressure 20 mmHg Left main artery MLA 2.6 mm??? LAD MLA 3.7 mm??? IMPRESSION Severe three-vessel coronary artery disease as described above PLAN 1. Referral to [facility] for consideration of surgical revascularization Electronically signed by : Ryan Rice MD 03/15/2022 13:11:20
[2022-03-08 15:21] LABS: CATHL Activated Clotting Time 308 SEC (74-125)
== END 2022-03-08 14:30 | disposition home or self-care (01) ==
PROVIDERS: PCP Emergency Medicine; Visit Provider Internal Medicine
DX: R94.39 Abnormal result of other cardiovascular function study (principal); I25.10 Atherosclerotic heart disease of native coronary artery without angina pectoris; Z95.5 Presence of coronary angioplasty implant and graft; F17.210 Nicotine dependence, cigarettes, uncomplicated; I10 Essential (primary) hypertension; R55 Syncope and collapse; Z79.899 Other long term (current) drug therapy
CPT/HCPCS: 85347; 92978; 92979; 93458; 99152; 99153; C1725; C1760; C1769; J1644; Q9967

== ENCOUNTER → 2022-03-31 09:46 | Outpatient (CLI) | payer MEDICARE, SELFPAY | PROVIDERS: PCP Emergency Medicine; Visit Provider Thoracic Surgery (Cardiothoracic Vascular Surgery) | DX: I25.10 Atherosclerotic heart disease of native coronary artery without angina pectoris (principal) | CPT/HCPCS: C9803; U0003; U0005 ==

== ENCOUNTER → 2022-05-11 13:09 | Outpatient (CLI) | payer MEDICARE, SELFPAY ==
[2022-05-11 14:04] LABS: Chloride 103 mmol/L (98-107); Sodium 139 mmol/L (136-145)
[2022-05-11 14:05] LABS: Potassium 4.6 mmoL/L (3.5-5.1)
[2022-05-11 14:07] LABS: Blood Urea Nitrogen 19 mg/dl (7-17); Estimated Glomerular Filt Rate 35 ml/min (>60); GFR (African American) 42 ML/MIN (>60)
[2022-05-11 14:08] LABS: Anion Gap 15.6 mEq/L (5-15); Calcium 9.6 mg/dl (8.4-10.2); Carbon Dioxide 25 mmol/L (22.0-30.0); Glucose 93 mg/dl (74-100)
== END ==
PROVIDERS: PCP Emergency Medicine; Visit Provider Thoracic Surgery (Cardiothoracic Vascular Surgery)
DX: I25.10 Atherosclerotic heart disease of native coronary artery without angina pectoris (principal)
CPT/HCPCS: 36415; 80048

== ENCOUNTER → 2022-05-26 10:50 | Outpatient (CLI) | payer MEDICARE, SELFPAY ==
--- NOTE | 2022-05-26 10:53 | CA_ITS ---
FINAL REPORT TECHNIQUE: Gabriel scale, color and spectral doppler images of the bilateral carotid arteries were obtained. CLINICAL HISTORY: ARCENIO,STENT LT CARTOID,HTN,HX SMOKING COMPARISON: February 2022 FINDINGS: Peak systolic velocity in the right internal carotid artery is 78 cm/sec. The internal carotid to common carotid artery ratio is 1.7. There is no significant carotid artery stenosis and no significant plaque formation. No flow in the right vertebral artery, unchanged from prior. Mild plaque disease. Peak systolic velocity in the left internal carotid artery is 109 cm/sec. The internal carotid to common carotid artery ratio is 1.7. There is no significant carotid artery stenosis and no significant plaque formation. The left vertebral artery is normal in direction. Mild plaque disease. IMPRESSION: Less than 50% bilateral carotid stenosis. No flow in the right vertebral artery, unchanged from prior. Reviewed, Interpreted and Dictated by Emani Mcelroy MD Transcribed by Cy Yu Authenticated and [facility]
== END ==
PROVIDERS: PCP Emergency Medicine; Visit Provider Nurse Practitioner
DX: I65.23 Occlusion and stenosis of bilateral carotid arteries (principal)
CPT/HCPCS: 93880

== ENCOUNTER → 2022-06-13 10:05 | Outpatient (CLI) | payer MEDICARE, SELFPAY ==
[2022-06-13 15:54] LABS: Chloride 103 mmol/L (98-107)
[2022-06-13 15:55] LABS: Potassium 4.6 mmoL/L (3.5-5.1); Sodium 139 mmol/L (136-145)
[2022-06-13 15:58] LABS: Anion Gap 15.6 mEq/L (5-15); Blood Urea Nitrogen 31 mg/dl (7-17); Calcium 9.5 mg/dl (8.4-10.2); Carbon Dioxide 25 mmol/L (22.0-30.0); Estimated Glomerular Filt Rate 41 ml/min (>60); GFR (African American) 49 ML/MIN (>60); Glucose 83 mg/dl (74-100)
== END ==
PROVIDERS: PCP Emergency Medicine; Visit Provider Emergency Medicine
DX: N17.9 Acute kidney failure, unspecified (principal)
CPT/HCPCS: 80048

== ENCOUNTER → 2022-07-04 10:44 | Outpatient (POV) | payer MEDICARE, SELFPAY | PROVIDERS: Visit Provider Nurse Practitioner | DX: Z00.00 Encounter for general adult medical examination without abnormal findings (principal) ==

== ENCOUNTER → 2022-11-18 12:39 | Outpatient (CLI) | payer MEDICARE, SELFPAY ==
--- NOTE | 2022-11-18 13:54 | CT_ITS ---
FINAL REPORT CLINICAL HISTORY: lung cancer screening FORMER SMOKER, QUIT 9 MONTHS AGO, SMOKED 1 PK PER DAY X 60 YRS CAD COMPARISON: None FINDINGS: CT CHEST LOW DOSE SCREENING HISTORY: Screening exam for lung cancer. Former smoker, 60 pack year smoking history DOSE: CTDIvol: 2.9 mGy, DLP: 110.2 mGy*cm COMPARISON: None . TECHNIQUE: Axial CT without IV contrast administration using low dose protocol FINDINGS: There is enlargement of the left lobe of the thyroid gland with multiple nodules. This is responsible for the S classification in this patient. There is a focus of aneurysmal dilation at the level of the aortic arch, 3.7 cm in diameter. Mild changes of emphysema are present. There is mild atelectasis of the lung bases and a small left pleural effusion. There are several calcified granulomas present. The right kidney is atrophic. There is a 28 mm left adrenal mass, low-attenuation, likely an adenoma. No pleural or pericardial effusion is seen . No adenopathy or mass lesion is present . There is a 2 mm lateral right upper lobe nodule present seen best on image #26. IMPRESSION: Left thyroid lobe enlarged with multiple nodules, resulting in the S classification for this patient. Would recommend ultrasound for further evaluation. Focal aneurysmal dilatation at the level of the aortic arch, 3.7 cm in diameter. 28 mm left adrenal mass, low-attenuation, likely an adenoma. Mild changes of emphysema and a 2 mm nodule in the right upper lobe as described. LUNG RADS CATEGORY 2S RECOMMENDATION: 12 month LDCT follow up Reviewed, Interpreted and Dictated by Melchor Verduzco III, MD Transcribed by Emmy Ayala Authenticated and [facility]
== END ==
PROVIDERS: PCP Emergency Medicine; Visit Provider Internal Medicine Pulmonary Disease
DX: F17.210 Nicotine dependence, cigarettes, uncomplicated (principal); R06.09 Other forms of dyspnea
CPT/HCPCS: 71271; 94060; 94618; 94726; 94729

== ENCOUNTER → 2023-01-09 13:58 | Outpatient (CLI) | payer MEDICARE, SELFPAY ==
--- NOTE | 2023-01-09 13:58 | US_ITS ---
FINAL REPORT TECHNIQUE: Sonographic images of the thyroid gland were obtained in the longitudinal and transverse planes. CLINICAL HISTORY: Thyroid nodule COMPARISON: None FINDINGS: The right lobe measures 1.9 x 4.0 x 1.5 cm. There are several TR 2 nodules. There is a mixed cystic and solid 1.1 cm nodule consistent with TR 3. Colloid cyst is noted. The left lobe measures 2.7 x 5.0 x 2.6 cm. There are several nodules in the left lobe. There is a large mixed cystic and solid nodule measuring 3.9 cm in the upper pole of the left lobe. There is a hyperechoic 2 cm lower pole nodule. The isthmus measures 4 mm. This is normal. IMPRESSION: Thyroid nodules. Nodules on the right are TR 3 and TR 2. Based on small size no follow-up is needed. Larger lesions in the left lobe are TR 3. The largest should be biopsied in the smaller should be followed. Reviewed, Interpreted and Dictated by Emani Mcelroy MD Transcribed by Tanvi Hunt Authenticated and [facility]
== END ==
LOC: RAD 13:58
PROVIDERS: PCP Emergency Medicine; Visit Provider Internal Medicine Pulmonary Disease
DX: E04.1 Nontoxic single thyroid nodule (principal)
CPT/HCPCS: 76536

== ENCOUNTER 2024-01-31 20:20 | Inpatient (IN) | payer MEDICARE, SELFPAY ==
[2024-01-31] VITALS (11 sets, daily range): BP systolic 140–203; BP diastolic 95–122; PULSE 90–111; RESP 19–28; TEMP 36.6; O2SAT 79–96; BMI 26.6
--- NOTE | 2024-01-31 20:37 | ED_ITS ---
Discharge Plan Disposition Chief Complaint: Shortness of Breath/Dyspnea Prescriptions Prescriptions: No Action No Known Home Medications Referrals Follow up/Referrals: Provider,MD Renzo [Primary Care Provider] - See instructions Print Language Print Language: Ecuadorean Discharge ED Provider: Mike Sanchez General Adult HPI <GARCÍA Ascencio - Last Filed: 01/31/24 21:05> General Chief complaint: Shortness of Breath/Dyspnea Stated complaint: Chest Pain Time Seen by Provider: 01/31/24 20:37 History of Present Illness HPI narrative: Patient presents for evaluation of chest pain shortness of breath dyspnea on exertion. Patient has multiple comorbidities including a [id number] history of smoking, coronary artery disease status post CABG last year, COPD not on home O2, history of diastolic heart failure with ejection fraction of 22% in February 2022. She gives a 2-week history of increasing shortness of breath dyspnea and is now short of breath that even light activities even at rest. She does not on home O2. She has not followed up with her PCP or any other provider in quite some time for unclear reasons. Nonetheless she denies any fever chills hemoptysis hematochezia melena nausea vomiting diarrhea. Her medication list is unconfirmed but she is supposed to be on a metered-dose inhaler aspirin statin and Toprol all and TioTropium Related Data Home Medications ?Medication ?Instructions ?Recorded ?Confirmed No Known Home Medications 01/31/24 01/31/24 Allergies Allergy/AdvReac Type Severity Reaction Status Date / Time lisinopril Allergy Mild Verified 01/06/23 11:09 codeine (CODEINE) Allergy Unknown Unknown Verified 01/06/23 11:09 allergy reaction morphine AdvReac Severe Hives Verified 01/06/23 11:09 PFSH <GARCÍA Ascencio - Last Filed: 01/31/24 21:05> [facility] Disclaimer: The information contained in this section may have been updated after the patient was seen, as this information can be updated by other users. Medical History (Updated 01/06/23 @ 12:25 by Deshawn Patel MD) Nodule of right lung Thyroid nodule Encounter for screening for malignant neoplasm of lung History of smoking 30 or more pack years Dyspnea on exertion COPD (chronic obstructive pulmonary disease) Syncope Abnormal result of cardiovascular function study Frequent PVCs Surgical History History of tubal ligation History of surgery on lower extremity History of hysterectomy History of heart artery stent History of cardiac cath History of cholecystectomy Family History Other COPD (chronic obstructive pulmonary disease) Diabetes Hypertension Social History Smoking Status: Current every day smoker tobacco type: cigarettes packs per day: 1 smoking status stop date: 04/03/2022 alcohol intake: never substance use type: denies use current occupational status: unemployed caffeine: Yes Other Medical History Have you received the Flu Vaccine for this season: No Have you received the Pneumonia Vaccine: Yes <GARCÍA Ascencio - Last Filed: 01/31/24 21:05> ROS Obtained: Yes Systems reviewed as appropriate & no additional complaints except as documented Physical Exam <GARCÍA Ascencio - Last Filed: 01/31/24 21:05> General General appearance: alert and in distress (Respiratory) Respiratory Respiratory exam: Present respiratory distress and accessory muscle use; Absent normal lung sounds bilaterally (Diminished breath sounds bilaterally with decreased air entry and Rales) Cardiovascular Cardiovascular exam: Present tachycardia Abdominal Exam Abdominal exam: Absent normal bowel sounds Neurological Exam Neurological exam: Present alert and oriented X3 Medical Decision Making <GARCÍA Ascencio - Last Filed: 01/31/24 21:05> Medical Records Medical records reviewed: Yes I reviewed the patient's medical records. Screening: Per USPSTF and CDC recommendations, given the prevalence of disease in our region, it is our hospital?s policy to screen for HIV and viral Hepatitis for all patients aged 18 and over and those with ongoing risk factors. Leonard Inquiry Pt receiving controlled substance: No Vital Signs: 01/31/24 20:20 01/31/24 21:06 01/31/24 21:10 Pulse Rate 108 H 111 H Pulse Rate [Apical] 110 H Respiratory Rate 28 H 19 Blood Pressure 191/107 H Blood Pressure [Right Arm] 203/122 H Blood Pressure Mean 127 Blood Pressure Mean [Right Arm] 149 02 Sat by Pulse Oximetry 79 L 94 L Oxygen Delivery Method Room Air Nasal Cannula Oxygen Flow Rate (LPM) 4 01/31/24 21:12 01/31/24 21:25 01/31/24 21:31 Pulse Rate 107 H 105 H 102 H Pulse Rate [Apical] Respiratory Rate 22 20 Blood Pressure 184/114 H 140/116 H Blood Pressure [Right Arm] Blood Pressure Mean 137 124 Blood Pressure Mean [Right Arm] 02 Sat by Pulse Oximetry 93 L 93 L Oxygen Delivery Method Nasal Cannula Nasal Cannula Oxygen Flow Rate (LPM) 4 4 01/31/24 21:49 01/31/24 21:51 01/31/24 23:00 Pulse Rate 104 H 110 H 95 H Pulse Rate [Apical] Respiratory Rate 20 24 Blood Pressure 178/110 H 171/105 H Blood Pressure [Right Arm] Blood Pressure Mean 123 129 Blood Pressure Mean [Right Arm] 02 Sat by Pulse Oximetry 92 L 94 L Oxygen Delivery Method Nasal Cannula Nasal Cannula Oxygen Flow Rate (LPM) 4 4 Lab Data Lab results reviewed: Yes I reviewed the patient's lab results. Lab Results 01/31/24 20:45: VBG pH 7.35, VBG pCO2 43.7, VBG pO2 23.3 L, VBG HCO3 23.6, VBG Total CO2 25.0, VBG O2 Saturation 35.0 L, VBG Base Excess -2.0, VBG Lactic Acid 2.9 H 01/31/24 20:49: WBC 15.1 H, RBC 4.64, Hgb 12.6, Hct 39.5, MCV 85.0, MCH 27.2, MCHC 31.9, RDW 15.5, Plt Count 444 H, MPV 7.6, Neut % (Auto) 86.4 H, Lymph % (Auto) 7.3 L, [place] % (Auto) 5.6, Eos % (Auto) 0.3, Baso % (Auto) 0.3, Neut # (Auto) 13.0 H, Lymph # (Auto) 1.1, [place] # (Auto) 0.8, Eos # (Auto) 0.1, Baso # (Auto) 0.1, Total Counted 100, Neutrophils % (Manual) 88 H, Lymphocytes % (Manual) 11, Eosinophils % (Manual) 1, Platelet Estimate Normal, Giant Platelets 1+, Anisocytosis 1+, Microcytosis 1+, Macrocytosis 1+, Spherocytes 1+, PT 12.1, INR 1.09, Sodium 138, Potassium 4.0, Chloride 105, Carbon Dioxide 23, Anion Gap 14.0, BUN 25 H, Creatinine 1.60 H, Estimated GFR 32 L, Est GFR ( Amer) 39 L, Glucose 171 H, Calcium 9.6, Magnesium 2.1, Total Bilirubin 0.6, AST 29, ALT 27, Alkaline Phosphatase 141 H, Troponin I 0.05 H, NT-Pro-B Natriuret Pep > 66475 H, Total Protein 7.0, Albumin 3.9, Globulin 3.1, Albumin/Globulin Ratio 1.3 01/31/24 21:27: Urine Color Yellow, Urine Appearance Clear, Urine pH 6.5, Ur Specific Talent >= 1.030, Urine Protein 2+ A, Urine Glucose (UA) Negative, Urine Ketones Negative, Urine Blood Negative, Urine Nitrate Negative, Urine Bilirubin Negative, Urine Urobilinogen 1.0, Ur Leukocyte Esterase Negative, Urine RBC 10-20, Urine WBC 50-100, Ur Squamous Epith Cells 10-20, Urine Bacteria 4+ 01/31/24 20:49 01/31/24 20:49 Orders (Tests/Meds): ED MEDICATIONS Generic Name Dose Route Start Last Admin Trade Name Freq PRN Reason Stop Dose Admin Nitroglycerin/Dextrose 250 mls @ 1.5 mls/hr 01/31/24 21:00 01/31/24 21:36 Nitroglycerin 50mg/250ml D5w IV 03/01/24 20:59 5 mcg/min .Q24H CATALINO 1.5 mls/hr Titration Protocol 5 MCG/MIN Discontinued Medications Generic Name Dose Route Start Last Admin Trade Name Freq PRN Reason Stop Dose Admin Acetaminophen 1,000 mg 01/31/24 20:43 01/31/24 21:01 Acetaminophen 500mg Tab PO 01/31/24 20:44 1,000 mg ONCE ONE Administration Albuterol/Ipratropium 9 ml 01/31/24 20:43 01/31/24 21:00 Ipratropium/Albuterol 3 Ml Neb IH 01/31/24 20:44 3 ml ONCE ONE Administration Dexamethasone Sodium Phosphate 10 mg 01/31/24 20:43 01/31/24 21:01 Dexamethasone 4mg/Ml 5ml Mdv IV 01/31/24 20:44 10 mg ONCE ONE Administration Furosemide 40 mg 01/31/24 20:43 01/31/24 21:00 Furosemide 40mg/4ml Vial IV 01/31/24 20:44 40 mg ONCE ONE Administration Furosemide 40 mg 01/31/24 21:19 01/31/24 21:53 Furosemide 40mg/4ml Vial IV 01/31/24 21:20 40 mg ONCE ONE Administration Ceftriaxone Sodium 1 gm/ 50 mls @ 100 mls/hr 01/31/24 22:00 01/31/24 22:23 Sodium Chloride IV 01/31/24 22:29 100 mls/hr ONCE ONE Administration Azithromycin 500 mg/ Sodium 250 mls @ 250 mls/hr 01/31/24 21:58 01/31/24 22:23 Chloride IV 01/31/24 21:59 250 mls/hr ONCE ONE Administration Iopamidol 70 ml 01/31/24 21:41 01/31/24 21:44 Iopamidol-370 (76%);100ml Bottle IV 01/31/24 21:42 70 ml ONCE ONE Administration Ondansetron HCl 4 mg 01/31/24 20:43 01/31/24 21:00 Ondansetron 4mg/2ml Vial IV 01/31/24 20:44 4 mg ONCE ONE Administration Sodium Chloride 10 ml 01/31/24 21:41 01/31/24 21:44 Sodium Chloride 0.9% 10ml Syr (Rad Only) IV 01/31/24 21:42 10 ml ONCE ONE Administration Sodium Chloride 50 ml 01/31/24 21:41 01/31/24 21:43 0.9 % Sodium Chloride 50 Ml Vial IV 01/31/24 21:42 50 ml ONCE ONE Administration ORDERS Category Date Time Status CT angio chest PE protocol Stat Cat Scan 01/31/24 20:44 Completed POCUS Point of Care (ER Only) Stat Exams 01/31/24 20:44 Ordered BNP [NT Pro Brain Natriuretic Pep.] Stat Lab 01/31/24 20:49 Completed CBC w/Auto Diff [Complete Blood Count Auto Diff] Stat Lab 01/31/24 20:49 Completed CMP [Comprehensive Metabolic Panel] Stat Lab 01/31/24 20:49 Completed HIV (1&2) Antibody Rapid Stat Lab 01/31/24 20:49 Received Hep C Ab with Reflex to RNA Stat Lab 01/31/24 20:49 Received INR [Prothrombin Time INR] Stat Lab 01/31/24 20:49 Completed Magnesium Stat Lab 01/31/24 20:49 Completed Trop I [Troponin I] Stat Lab 01/31/24 20:49 Completed Troponin I Q3H Lab 01/31/24 23:45 Ordered Troponin I Q3H Lab 02/01/24 02:45 Ordered UA [Urinalysis and Microscopic] Stat Lab 01/31/24 21:27 Completed Blood Culture Stat Micro 01/31/24 21:22 Received Urine Culture Stat Micro 01/31/24 21:27 Received VBG [Venous Blood Gas] Stat RT 01/31/24 20:45 Completed Medical Decision Narrative: In summary patient is a 68-year-old female who presents to the emergency department for evaluation of respiratory distress and chest pain. Patient is hypertensive on arrival and tachycardic satting at 77% on room air at the time of my exam upon arrival, but afebrile. Physical exam is remarkable for much older than stated age appearing unwell appearing chronically ill-appearing 68-year-old female who is in respiratory distress currently. She has increased work of breathing diminished breath sounds at the bilateral bases with rales in the upper [place] she does not however have dependent edema and according to her does not have a history of CHF. She does have a history of previous CABG last year. She is not on home O2. Chart review shows that she did have an echocardiogram and perfusion scan done in February 2022 and echo showed stage I diastolic dysfunction however Lexiscan showed an EF of 22%. Differential diagnosis includes heart failure versus COPD exacerbation versus pleural effusions versus STEMI versus NSTEMI etc. Initial workup will be conducted with hematologic labs POCUS CTA PE protocol urinalysis. Initial interventions include DuoNeb Decadron Tylenol Toradol Lasix nitroglycerin drip. Initial workup started and care transitioned to Dr. Sanchez at 2100 hrs. <Mike Sanchez MD - Last Filed: 01/31/24 23:14> Vital Signs: 01/31/24 20:20 01/31/24 21:06 01/31/24 21:10 Pulse Rate 108 H 111 H Pulse Rate [Apical] 110 H Respiratory Rate 28 H 19 Blood Pressure 191/107 H Blood Pressure [Right Arm] 203/122 H Blood Pressure Mean 127 Blood Pressure Mean [Right Arm] 149 02 Sat by Pulse Oximetry 79 L 94 L Oxygen Delivery Method Room Air Nasal Cannula Oxygen Flow Rate (LPM) 4 01/31/24 21:12 01/31/24 21:25 01/31/24 21:31 Pulse Rate 107 H 105 H 102 H Pulse Rate [Apical] Respiratory Rate 22 20 Blood Pressure 184/114 H 140/116 H Blood Pressure [Right Arm] Blood Pressure Mean 137 124 Blood Pressure Mean [Right Arm] 02 Sat by Pulse Oximetry 93 L 93 L Oxygen Delivery Method Nasal Cannula Nasal Cannula Oxygen Flow Rate (LPM) 4 4 01/31/24 21:49 01/31/24 21:51 01/31/24 23:00 Pulse Rate 104 H 110 H 95 H Pulse Rate [Apical] Respiratory Rate 20 24 Blood Pressure 178/110 H 171/105 H Blood Pressure [Right Arm] Blood Pressure Mean 123 129 Blood Pressure Mean [Right Arm] 02 Sat by Pulse Oximetry 92 L 94 L Oxygen Delivery Method Nasal Cannula Nasal Cannula Oxygen Flow Rate (LPM) 4 4 Lab Data Lab Results 01/31/24 20:45: VBG pH 7.35, VBG pCO2 43.7, VBG pO2 23.3 L, VBG HCO3 23.6, VBG Total CO2 25.0, VBG O2 Saturation 35.0 L, VBG Base Excess -2.0, VBG Lactic Acid 2.9 H 01/31/24 20:49: WBC 15.1 H, RBC 4.64, Hgb 12.6, Hct 39.5, MCV 85.0, MCH 27.2, MCHC 31.9, RDW 15.5, Plt Count 444 H, MPV 7.6, Neut % (Auto) 86.4 H, Lymph % (Auto) 7.3 L, [place] % (Auto) 5.6, Eos % (Auto) 0.3, Baso % (Auto) 0.3, Neut # (Auto) 13.0 H, Lymph # (Auto) 1.1, [place] # (Auto) 0.8, Eos # (Auto) 0.1, Baso # (Auto) 0.1, Total Counted 100, Neutrophils % (Manual) 88 H, Lymphocytes % (Manual) 11, Eosinophils % (Manual) 1, Platelet Estimate Normal, Giant Platelets 1+, Anisocytosis 1+, Microcytosis 1+, Macrocytosis 1+, Spherocytes 1+, PT 12.1, INR 1.09, Sodium 138, Potassium 4.0, Chloride 105, Carbon Dioxide 23, Anion Gap 14.0, BUN 25 H, Creatinine 1.60 H, Estimated GFR 32 L, Est GFR ( Amer) 39 L, Glucose 171 H, Calcium 9.6, Magnesium 2.1, Total Bilirubin 0.6, AST 29, ALT 27, Alkaline Phosphatase 141 H, Troponin I 0.05 H, NT-Pro-B Natriuret Pep > 37452 H, Total Protein 7.0, Albumin 3.9, Globulin 3.1, Albumin/Globulin Ratio 1.3 01/31/24 21:27: Urine Color Yellow, Urine Appearance Clear, Urine pH 6.5, Ur Specific Talent >= 1.030, Urine Protein 2+ A, Urine Glucose (UA) Negative, Urine Ketones Negative, Urine Blood Negative, Urine Nitrate Negative, Urine Bilirubin Negative, Urine Urobilinogen 1.0, Ur Leukocyte Esterase Negative, Urine RBC 10-20, Urine WBC 50-100, Ur Squamous Epith Cells 10-20, Urine Bacteria 4+ Orders (Tests/Meds): ED MEDICATIONS Generic Name Dose Route Start Last Admin Trade Name Freq PRN Reason Stop Dose Admin Nitroglycerin/Dextrose 250 mls @ 1.5 mls/hr 01/31/24 21:00 01/31/24 21:36 Nitroglycerin 50mg/250ml D5w IV 03/01/24 20:59 5 mcg/min .Q24H CATALINO 1.5 mls/hr Titration Protocol 5 MCG/MIN Discontinued Medications Generic Name Dose Route Start Last Admin Trade Name Freq PRN Reason Stop Dose Admin Acetaminophen 1,000 mg 01/31/24 20:43 01/31/24 21:01 Acetaminophen 500mg Tab PO 01/31/24 20:44 1,000 mg ONCE ONE Administration Albuterol/Ipratropium 9 ml 01/31/24 20:43 01/31/24 21:00 Ipratropium/Albuterol 3 Ml Neb IH 01/31/24 20:44 3 ml ONCE ONE Administration Dexamethasone Sodium Phosphate 10 mg 01/31/24 20:43 01/31/24 21:01 Dexamethasone 4mg/Ml 5ml Mdv IV 01/31/24 20:44 10 mg ONCE ONE Administration Furosemide 40 mg 01/31/24 20:43 01/31/24 21:00 Furosemide 40mg/4ml Vial IV 01/31/24 20:44 40 mg ONCE ONE Administration Furosemide 40 mg 01/31/24 21:19 01/31/24 21:53 Furosemide 40mg/4ml Vial IV 01/31/24 21:20 40 mg ONCE ONE Administration Ceftriaxone Sodium 1 gm/ 50 mls @ 100 mls/hr 01/31/24 22:00 01/31/24 22:23 Sodium Chloride IV 01/31/24 22:29 100 mls/hr ONCE ONE Administration Azithromycin 500 mg/ Sodium 250 mls @ 250 mls/hr 01/31/24 21:58 01/31/24 22:23 Chloride IV 01/31/24 21:59 250 mls/hr ONCE ONE Administration Iopamidol 70 ml 01/31/24 21:41 01/31/24 21:44 Iopamidol-370 (76%);100ml Bottle IV 01/31/24 21:42 70 ml ONCE ONE Administration Ondansetron HCl 4 mg 01/31/24 20:43 01/31/24 21:00 Ondansetron 4mg/2ml Vial IV 01/31/24 20:44 4 mg ONCE ONE Administration Sodium Chloride 10 ml 01/31/24 21:41 01/31/24 21:44 Sodium Chloride 0.9% 10ml Syr (Rad Only) IV 01/31/24 21:42 10 ml ONCE ONE Administration Sodium Chloride 50 ml 01/31/24 21:41 01/31/24 21:43 0.9 % Sodium Chloride 50 Ml Vial IV 01/31/24 21:42 50 ml ONCE ONE Administration ORDERS Category Date Time Status CT angio chest PE protocol Stat Cat Scan 01/31/24 20:44 Completed POCUS Point of Care (ER Only) Stat Exams 01/31/24 20:44 Ordered BNP [NT Pro Brain Natriuretic Pep.] Stat Lab 01/31/24 20:49 Completed CBC w/Auto Diff [Complete Blood Count Auto Diff] Stat Lab 01/31/24 20:49 Completed CMP [Comprehensive Metabolic Panel] Stat Lab 01/31/24 20:49 Completed HIV (1&2) Antibody Rapid Stat Lab 01/31/24 20:49 Received Hep C Ab with Reflex to RNA Stat Lab 01/31/24 20:49 Received INR [Prothrombin Time INR] Stat Lab 01/31/24 20:49 Completed Magnesium Stat Lab 01/31/24 20:49 Completed Trop I [Troponin I] Stat Lab 01/31/24 20:49 Completed Troponin I Q3H Lab 01/31/24 23:45 Ordered Troponin I Q3H Lab 02/01/24 02:45 Ordered UA [Urinalysis and Microscopic] Stat Lab 01/31/24 21:27 Completed Blood Culture Stat Micro 01/31/24 21:22 Received Urine Culture Stat Micro 01/31/24 21:27 Received VBG [Venous Blood Gas] Stat RT 01/31/24 20:45 Completed ECG Data Tracing #1: Independently interpreted by me rate is 112, rhythm is regular, significant chatter precludes diagnostic ability of this EKG with certainty. QTc 403 Tracing #2: Independently interpreted by me rate is 104, rhythm is regular, axis is normal, no ST elevation in anatomical contiguous leads, QTc 443. HEART Score History (anamnesis): Moderately suspicious ECG: Non-specific disturbance Age: >65 years Risk factors: 3 or more risk factors Troponin: 1-3x normal limit HEART Score: 7 Medical Decision Narrative: In summary patient is a 68-year-old female who presents to the emergency department for evaluation of respiratory distress and chest pain. Patient is hypertensive on arrival and tachycardic satting at 77% on room air at the time of my exam upon arrival, but afebrile. Physical exam is remarkable for much older than stated age appearing unwell appearing chronically ill-appearing 68-year-old female who is in respiratory distress currently. She has increased work of breathing diminished breath sounds at the bilateral bases with rales in the upper [place] she does not however have dependent edema and according to her does not have a history of CHF. She does have a history of previous CABG last year. She is not on home O2. Chart review shows that she did have an echocardiogram and perfusion scan done in February 2022 and echo showed stage I diastolic dysfunction however Lexiscan showed an EF of 22%. Differential diagnosis includes heart failure versus COPD exacerbation versus pleural effusions versus STEMI versus NSTEMI etc. Initial workup will be conducted with hematologic labs POCUS CTA PE protocol urinalysis. Initial interventions include DuoNeb Decadron Tylenol Toradol Lasix nitroglycerin drip. Initial workup started and care transitioned to Dr. Sanchez at 2100 hrs. Mike Sanchez: Patient has chronic comorbid conditions upon my assessment including COPD and CHF for which she is not compliant with her medications. Originally she was saturating in the 70s on room air which was escalated to oxygen 4 L nasal cannula appropriately. Patient does have significant wheezing on my exam however differential includes COPD versus cardiac wheeze. She is significantly hypertensive and my [id number] ultrasound at bedside shows severe decreased cardiac function for which patient was started on nitroglycerin drip. patient will be given steroids, single DuoNeb, 80 mg of Lasix, azithromycin, Tylenol, Zofran. Workup will be conducted with broad hematologic labs and CTA chest given that differential includes pulmonary embolism. Workup reviewed by me leukocytosis 15.1, compensated VBG which points more towards heart failure creatinine 1.6 without critical electrolyte abnormality BMP exceptionally high initial troponin 0.05 without STEMI on EKG I suspect NSTEMI versus myocardial injury that is chronic urinalysis interpreted by me and consistent with infection for which ceftriaxone will be added for urinary tract infection with proteinuria. CTA chest no pulmonary embolism moderate bilateral pleural effusions suggestive of CHF with multifocal consolidative opacities in the right middle lobe and left lower lobe that may be developing pneumonia and follow-up CT was recommended there is a stable aneurysm in the lateral aspect of the aortic arch 3.7 cm with 2.8 left thyroid nodule for which outpatient ultrasound is warranted. To summarize she presented with scape syndrome was initiated on a nitroglycerin drip. She has severe decompensated heart failure that is been given 80 mg of Lasix. She has pneumonia and COPD exacerbation as well as urinary tract infection that has been covered with steroids, azithromycin, ceftriaxone. The case was discussed with hospital medicine who graciously admitted the patient to their service for continued evaluation at this time. Critical Care <GARCÍA Ascencio - Last Filed: 01/31/24 21:05> Critical Care Time Critical Care Time: No
--- NOTE | 2024-01-31 20:44 | CT_ITS ---
PROCEDURE INFORMATION: Exam: CTA Chest With Contrast Exam date and time: 01/31/2024 9:41 PM Age: 68 years old Clinical indication: Pain; Chest pressure; Additional info: Chest pain dyspnea hypoxia TECHNIQUE: Imaging protocol: Computed tomographic angiography of the chest with contrast. Exam focused on the arteries. 3D rendering (Not supervised by radiologist): MIP and/or 3D reconstructed images were created by the technologist. Radiation optimization: All CT scans at this facility use at least one of these dose optimization techniques: automated exposure control; mA and/or kV adjustment per patient size (includes targeted exams where dose is matched to clinical indication); or iterative reconstruction. Contrast material: ISOVUE; Contrast volume: 70 ml; Contrast route: INTRAVENOUS (IV); COMPARISON: CT LUNG SCREENING 11/18/2022 2:35 PM FINDINGS: Pulmonary arteries: Normal. No pulmonary emboli. Aorta: Small saccular aneurysm projects off of the left lateral aspect of the mid to posterior aortic arch. This measures 2.6 cm in length. The caliber of the arch including the aneurysm measures 3.7 cm. This finding is similar to the prior CT chest of 11/18/2022. Thyroid: 2.8 cm left thyroid nodule or mass. Advise further assessment with nonemergent ultrasound of thyroid. Lungs: Emphysematous changes are identified. Bilateral interlobular septal thickening suggesting interstitial edema. Posterior lower lobe opacities are noted [id number] most likely due to compressive atelectasis. Additional areas of consolidative type opacities noted in the superior aspect of the left lower lobe and in the anterior aspect of the right middle lobe. Lung smith otherwise clear. Pleural spaces: Bilateral posterior layering moderate-sized pleural effusions are noted. Heart: Cardiomegaly. Post open heart changes. Lymph nodes: Mildly enlarged right paratracheal nodes measuring up to 11 mm and subcarinal nodes measuring up to 12 mm. Adrenal glands: A 2.5 cm low-density left adrenal nodule with a density of-5 compatible with adenoma redemonstrated. Bones/joints: Unremarkable. No acute fracture. Soft tissues: Unremarkable. IMPRESSION: 1. No evident PE. 2. Bilateral moderate-sized pleural effusions and associated interstitial edema suggesting CHF. 3. Posterior lower lobe opacities most likely compressive atelectasis related to the effusions although infiltrates not totally excluded. Additional multifocal consolidative type opacities in the right middle lobe and superior segment of the left lower lobe that may reflect developing pneumonic infiltrates. Follow-up CT in 3 months should be considered to ensure resolution of these findings. 4. Nonspecific mediastinal lymphadenopathy. 5. Stable small saccular aneurysm of the lateral aspect of the aortic arch. 6. 2.8 cm left thyroid nodule or mass. Advise further assessment with nonemergent ultrasound of thyroid. COMMENTS: 1. Consistent with the [employer]'s Incidental Findings Committee white paper (J Am Rickey Radiol 2015): In patients aged 35 years and older with an incidental thyroid nodule equal to or greater than 1.[address], MRI or extrathyroidal US, further evaluation with dedicated thyroid US is recommended for patients with normal life expectancy and without comorbidities. For smaller nodules without suspicious features, no further evaluation or follow up is recommended. 2. The presence of pulmonary emphysema on CT is an independent risk factor for lung cancer. In the absence of a history or active diagnosis of lung cancer, it is recommended that this patient with emphysema be evaluated for enrollment in a low dose CT lung cancer screening program.
--- NOTE | 2024-01-31 20:44 | ECG_ITS ---
APPROVED REPORT Exam: Resting ECG HR:112 bpm ECG Measurements Heart Rate 112 AXES QRSd 97 QRS 12 QT 336 T 37 QTc 403 Conclusion ATRIAL FIBRILLATION WITH RAPID VENTRICULAR RESPONSE NONSPECIFIC ST & T-WAVE ABNORMALITY ABNORMAL RHYTHM ECG Significant chatter in the anterior leads Electronically signed by : TACO LOGAN, 02/01/2024 00:17:33
[2024-01-31 20:52] LABS: VBG HCO3 23.6 mmol/L (23-30); VBG PCO2 43.7 mmol/L (35-51); VBG PH 7.35 mmol/L (7.31-7.41); VBG PO2 23.3 mmol/L (28-40)
[2024-01-31 20:53] LABS: Lactate Venous 2.9 mmol/L (0.4-2.0)
[2024-01-31 20:59] LABS: Basophils # 0.1 K/mm3 (0-0.2); Basophils % 0.3 % (0.1-2.0); Eosinophils # 0.1 K/mm3 (0.0-0.4); Eosinophils % 0.3 % (0.1-12.0); Hematocrit 39.5 % (37.0-47.0); Hemoglobin 12.6 g/dL (12.2-16.2); Lymphocytes # 1.1 K/mm3 (0.7-4.5); Lymphocytes % 7.3 % (10-50); Mean Corpuscular HGB Conc 31.9 g/dL (31.8-35.4); Mean Corpuscular Hemoglobin 27.2 pg (27.0-31.2); Mean Platelet Volume 7.6 fl (7.4-10.4); Monocytes # 0.8 K/mm3 (0.1-1.0); Monocytes % 5.6 % (1.7-9.3); Neutrophils % 86.4 % (37.0-80.0); Platelet Count 444 K/mm3 (142-424); Red Blood Count 4.64 M/mm3 (4.20-5.40); Red Cell Distribution Width 15.5 % (11.5-17.5); White Blood Count 15.1 K/mm3 (4.8-10.8)
[2024-01-31] MEDS: ONDANSETRON 4MG/2ML VIAL 4 MG IV (21:00)
[2024-01-31] MEDS: IPRATROPIUM/ALBUTEROL 3 ML NEB 9 ML IH (21:00)
[2024-01-31] MEDS: FUROSEMIDE 40MG/4ML VIAL 40 MG IV ×2 (21:00→21:53)
[2024-01-31] MEDS: ACETAMINOPHEN 500MG TAB 1000 MG PO (21:01)
[2024-01-31] MEDS: DEXAMETHASONE 4MG/ML 5ML MDV 10 MG IV (21:01)
[2024-01-31 21:05] LABS: Albumin Level 3.9 g/dl (3.5-5.0); Chloride 105 mmol/L (98-107); Sodium 138 mmol/L (136-145)
[2024-01-31 21:06] LABS: MANUAL DIFFERENTIAL MANUAL DIFFERENTIAL (MANUAL DIFF)
--- NOTE | 2024-01-31 21:06 | PC.NURSE ---
Patient's room air saturation was 72% on arrival
[2024-01-31 21:07] LABS: Blood Urea Nitrogen 25 mg/dl (7-17); Estimated Glomerular Filt Rate 32 ml/min (>60); GFR (African American) 39 ML/MIN (>60)
[2024-01-31] MEDS: NITROGLYCERIN IN 5 % DEXTROSE 250 ML 1.5 MG IV (21:07)
[2024-01-31 21:08] LABS: Alanine Aminotransferase 27 U/L (12-78); Albumin/Globulin Ratio 1.3 (1.1-1.8); Alkaline Phosphatase 141 U/L (38-126); Aspartate Amino Transferase 29 U/L (14-36); Bilirubin,Total 0.6 mg/dl (0.2-1.3); Calcium 9.6 mg/dl (8.4-10.2); Carbon Dioxide 23 mmol/L (22.0-30.0); Globulin 3.1 g/dL (1.3-3.2); Glucose 171 mg/dl (74-100); Magnesium 2.1 mg/dl (1.6-2.3)
[2024-01-31 21:09] LABS: INR 1.09 (0.9-1.1); Prothrombin Time 12.1 seconds (10.1-12.5)
[2024-01-31 21:18] LABS: NT Pro Brain Natriuretic Pep. > 30000 pg/mL (0-125)
[2024-01-31 21:20] LABS: Troponin I 0.05 ng/ml (0.00-0.034)
--- NOTE | 2024-01-31 21:29 | ECG_ITS ---
APPROVED REPORT Exam: Resting ECG HR:104 bpm ECG Measurements Heart Rate 104 AXES QRSd 100 QRS -1 QT 383 T 19 QTc 443 Conclusion Sinus arrhythmia with VENTRICULAR PREMATURE COMPLEXES LATERAL MYOCARDIAL INFARCTION , OF INDETERMINATE AGE [40+ ms Q WAVE AND/OR ST/T ABNORMALITY IN I/aVL/V5/V6] ABNORMAL ECG Electronically signed by : TACO LOGAN, 02/01/2024 00:17:00
[2024-01-31 21:32] LABS: Appearance,Urine CLEAR (Clear); Blood, Urine Negative (Negative); Color,Urine YELLOW (Yellow); Glucose,Urine (UA) Negative (Negative); Ketones,Urine Negative (Negative); Leukocyte Esterase,Urine Negative (Negative); Microscopic, Urine URINE MICROSCOPIC (MICROSCOPIC); Nitrate,Urine Negative (Negative); PH,Urine 6.5 (5.0-8.5); Protein,Urine 2+ (Negative); Specific Gravity, Urine >= 1.030 (1.005-1.030)
[2024-01-31 21:34] LABS: Bilirubin,Urine Negative (Negative)
[2024-01-31] MEDS: 0.9 % SODIUM CHLORIDE 50 ML VIAL IV (21:43)
[2024-01-31] MEDS: SODIUM CHLORIDE 0.9% 10ML SYR (RAD ONLY) 10 ML IV (21:44)
[2024-01-31] MEDS: IOPAMIDOL-370 (76%);100ML BOTTLE 70 ML IV (21:44)
[2024-01-31 21:46] LABS: Anisocytosis 1+; Eosinophils % 1 % (0-3); Giant Platelets 1+; Lymphocytes % 11 % (10-50); Macrocytosis 1+; Microcytosis 1+; Neutrophils % 88 % (42-76); Total Cells Counted 100
[2024-01-31 21:47] LABS: Platelet Estimate Normal; Spherocytes 1+
[2024-01-31 21:50] LABS: Bacteria,Urine 4+ /lpf; WBC,Urine 50-100 #/hpf (0-3)
[2024-01-31] MEDS: AZITHROMYCIN 500 MG in 0.9 % SODIUM CHLORIDE 250 ML 250 MG IV (22:23)
[2024-01-31] MEDS: CEFTRIAXONE 1 GM 1 GM in 0.9 % SODIUM CHLORIDE 50 ML IV (22:23)
--- NOTE | 2024-01-31 23:40 | PC.NURSE ---
pt arrived to floor at this time
--- NOTE | 2024-01-31 23:52 | P.HP_ITS ---
<Statement entered by Willy Ortiz MD - 02/03/24 17:42> I personally evaluated patient and agree with the plan of care as outlined by the CAD TECHNICIAN. History of Present Illness *Admission Date: 01/31/24 *Reason for visit:: Shortness of breath *History of present illness: Eddi Hawkins is a 68-year-old female past medical history significant for COPD, CHF, CAD status post three-vessel bypass, tobacco abuse who presents emergency room tonight with complaints of worsening shortness of breath. Ms. Hawkins she states she has been feeling short of breath for at least a month now. Acutely got worse this afternoon. Is supposed to wear oxygen at home but family states that she put it in the shed outside because she does not want to wear it. Family also reports that she smokes at least 3 packs cigarettes per day. Patient had a three-vessel bypass in March of last year at . Reports she has not followed up with cardiology or her surgeon since then. Denies taking any sort of blood thinners. Has not had an echo done since her surgery. Denies any chest pain with her shortness of breath. No nausea, vomiting, diarrhea. No fever noted, no productive cough noted. Denies abdominal pain, bowel or bladder dysfunction. No recent weight gain or weight loss, no swelling in her legs or feet. Endorses tobacco use. Denies any alcohol or illicit drug use. Lab work in the ER showed an elevated white count of 15,000, BUN and creatinine elevated at 25 and 1.6. Initial troponin was 0.05, BNP greater than 30,000. UA showed 50-100 WBCs, 4+ bacteria but was negative for leuks and nitrites. Patient came in extremely tachypneic with SpO2 sats in the 70s. Patient was placed on 4 L nasal cannula, started on a nitroglycerin drip, given 80 of Lasix and DuoNebs. Was also given azithromycin and Rocephin. ER physician did a bedside ultrasound of her heart, showed severe decreased cardiac function. CTA of the chest was negative for PE, did show bilateral moderate size pleural effusions as well as multifocal consolidative opacities bilaterally. She will be admitted to the hospitalist service for multifocal pneumonia as well as CHF exacerbation. [facility] Disclaimer: The information contained in this section may have been updated after the patient was seen, as this information can be updated by other users. Medical History Nodule of right lung Thyroid nodule Encounter for screening for malignant neoplasm of lung History of smoking 30 or more pack years Dyspnea on exertion COPD (chronic obstructive pulmonary disease) Syncope Abnormal result of cardiovascular function study Frequent PVCs Surgical History History of tubal ligation History of surgery on lower extremity History of hysterectomy History of heart artery stent History of cardiac cath History of cholecystectomy Family History Other COPD (chronic obstructive pulmonary disease) Diabetes Hypertension Social History Smoking Status: Current every day smoker tobacco type: cigarettes packs per day: 1 smoking status stop date: 04/03/2022 alcohol intake: never substance use type: denies use current occupational status: unemployed caffeine: Yes Other Medical History Have you received the Flu Vaccine for this season: No Have you received the Pneumonia Vaccine: Yes Review of Systems Review of Systems Review of systems:: pertinent systems reviewed and negative unless documented below *Cardiovascular Cardiovascular: Reports dyspnea and Reports dyspnea on exertion *Respiratory Respiratory: Reports dyspnea and Reports dyspnea on exertion Meds Home Medications and Allergies Home Medications ?Medication ?Instructions ?Recorded ?Confirmed ?Type No Known Home Medications 01/31/24 01/31/24 History New Prescriptions to Start Prescriptions: Allergies Allergy/AdvReac Type Severity Reaction Status Date / Time lisinopril Allergy Mild Verified 01/06/23 11:09 codeine (CODEINE) Allergy Unknown Unknown Verified 01/06/23 11:09 allergy reaction morphine AdvReac Severe Hives Verified 01/06/23 11:09 Exam Data for Last 24 hours Vital signs and Labs for Last 24 Hours: Temp Pulse Resp BP Pulse Ox O2 Del Method O2 Flow Rate 98 F 95 H 22 153/95 H 94 L Nasal Cannula 3 01/31/24 23:33 01/31/24 23:33 01/31/24 23:33 01/31/24 23:33 01/31/24 21:51 01/31/24 23:33 01/31/24 23:33 Laboratory Results - last 24 hr 01/31/24 20:45: VBG pH 7.35, VBG pCO2 43.7, VBG pO2 23.3 L, VBG HCO3 23.6, VBG Total CO2 25.0, VBG O2 Saturation 35.0 L, VBG Base Excess -2.0, VBG Lactic Acid 2.9 H 01/31/24 20:49: WBC 15.1 H, RBC 4.64, Hgb 12.6, Hct 39.5, MCV 85.0, MCH 27.2, MCHC 31.9, RDW 15.5, Plt Count 444 H, MPV 7.6, Neut % (Auto) 86.4 H, Lymph % (Auto) 7.3 L, [place] % (Auto) 5.6, Eos % (Auto) 0.3, Baso % (Auto) 0.3, Neut # (Auto) 13.0 H, Lymph # (Auto) 1.1, [place] # (Auto) 0.8, Eos # (Auto) 0.1, Baso # (Auto) 0.1, Total Counted 100, Neutrophils % (Manual) 88 H, Lymphocytes % (Manual) 11, Eosinophils % (Manual) 1, Platelet Estimate Normal, Giant Platelets 1+, Anisocytosis 1+, Microcytosis 1+, Macrocytosis 1+, Spherocytes 1+, PT 12.1, INR 1.09, Sodium 138, Potassium 4.0, Chloride 105, Carbon Dioxide 23, Anion Gap 14.0, BUN 25 H, Creatinine 1.60 H, Estimated GFR 32 L, Est GFR ( Amer) 39 L, Glucose 171 H, Calcium 9.6, Magnesium 2.1, Total Bilirubin 0.6, AST 29, ALT 27, Alkaline Phosphatase 141 H, Troponin I 0.05 H, NT-Pro-B Natriuret Pep > 87969 H, Total Protein 7.0, Albumin 3.9, Globulin 3.1, Albumin/Globulin Ratio 1.3 01/31/24 21:27: Urine Color Yellow, Urine Appearance Clear, Urine pH 6.5, Ur Specific Alexander >= 1.030, Urine Protein 2+ A, Urine Glucose (UA) Negative, Urine Ketones Negative, Urine Blood Negative, Urine Nitrate Negative, Urine Bilirubin Negative, Urine Urobilinogen 1.0, Ur Leukocyte Esterase Negative, Urine RBC 10-20, Urine WBC 50-100, Ur Squamous Epith Cells 10-20, Urine Bacteria 4+ I & O for Last 24 hours: Intake & Output 01/28/24 01/29/24 01/30/24 01/31/24 23:59 23:59 23:59 23:59 Intake Total 0.725 / 0.725 Balance 0.725 / 0.725 Weight 74.843 kg *Routine HEENT Exam Head: Present normocephalic and atraumatic Eye: Present EOMI and PERRL ENT: Present mucous membranes moist *Routine Neck Exam Neck: Present supple and full ROM *Routine Respiratory Exam Respiratory: Present accessory muscle use, rales, rhonchi and wheezes Comments: Patient with expiratory wheezes throughout, rales and rhonchi noted throughout as well *Routine Cardiovascular Exam Cardiovascular: Present Normal S1 and Normal S2 *Routine Abdominal Exam Abdominal: Present soft and normoactive bowel sounds *Routine Rectal Exam Rectal:: deferred *Routine Genitalia Exam Genitalia:: deferred *Routine Extremities Exam Extremities: Present pulses intact and normal capillary refill *Routine Skin Exam Skin: Present intact *Routine Neurological Exam Neurological: Present alert and oriented X3 Assessment and Plan *Assessment and plan (1) Non-ST elevation NH (NSTEMI): Status: Acute Category: Medical Code(s): I21.4 - Non-ST elevation (NSTEMI) myocardial infarction (2) Acute UTI: Status: Acute Category: Medical Code(s): N39.0 - Urinary tract infection, site not specified (3) Pneumonia: Status: Acute Category: Medical Code(s): J18.9 - Pneumonia, unspecified organism (4) Pleural effusion due to CHF (congestive heart failure): Status: Acute Category: Medical Code(s): I50.9 - Heart failure, unspecified (5) Pulmonary edema: Status: Acute Category: Medical Code(s): J81.1 - Chronic pulmonary edema (6) JIN (acute kidney injury): Status: Acute Category: Medical Code(s): N17.9 - Acute kidney failure, unspecified (7) Hypertension: Status: Acute Qualifiers: Hypertension type: unspecified Qualified Code(s): I10 - Essential (primary) hypertension Category: Medical Code(s): I10 - Essential (primary) hypertension (8) Coronary artery disease: Status: Chronic Qualifiers: Coronary Disease-Associated Artery/Lesion type: [place] artery [place] vs. transplanted heart: [place] heart Associated angina: without angina Qualified Code(s): I25.10 - Atherosclerotic heart disease of [place] coronary artery without angina pectoris Category: Medical Code(s): I25.10 - Atherosclerotic heart disease of [place] coronary artery without angina pectoris (9) S/P CABG x 3: Status: Acute Category: Surgical Code(s): Z95.1 - Presence of aortocoronary bypass graft Plan Assessment: This is a 68-year-old female being admitted for acute hypoxic respiratory failure secondary to multifocal pneumonia and acute decompensated heart failure. On my exam, patient is sitting up in bed in no acute distress. Reports her work of breathing is much improved and she is feeling better. No other complaints. Admit to inpatient-ICU Acute hypoxic respiratory failure (multifactorial due to pneumonia and CHF) Multifocal pneumonia COPD -DuoNebs every 6 hours -Maintain SpO2 greater than 92%, supplemental oxygen as needed. Patient is supposed to wear oxygen at home according to family. -Mucinex -Continue azithromycin and Rocephin -Will hold off on additional steroids at this time -Consider consult to pulmonology -Aggressive pulmonary toilet Acute CHF exacerbation Bilateral pleural effusions Pulmonary edema NSTEMI -Nitro drip currently on hold -Lasix every 12 hours -Telemetry -1500 cc fluid restriction -Repeat echo in the morning, last echo was done February 2022, Lexiscan showed an EF of 22% -Serial troponins, elevated troponin likely secondary to demand ischemia and CHF exacerbation with fluid overload -EKG as needed -Consult cardiology JIN -Baseline creatinine appears to be around 1.3 -Avoid nephrotoxic medications -Monitor serum BUN/creatinine -Renal dose medications as appropriate -Withholding fluids at this time as patient is in decompensated heart failure Acute cystitis -Continue Rocephin as above -Culture pending CAD status post three-vessel CABG -Patient denies taking any medications at home. Last fill date on 3 of her medications was in July of this year -Will defer to cardiology regarding beta-jewell, statin, antiplatelets etc Thyroid nodule -finding on CT. Does appear pt had an US Jan 2023, recommended biopsy but patient did not follow up Tobacco abuse -Tobacco cessation counseling given -As needed nicotine patch DVT prophylaxis: Heparin CODE STATUS: Full code Surrogate decision maker: iLzy [phone] Skin: Moderate risk Estimated length of stay: Greater than 2 midnights
[2024-02-01] VITALS (22 sets, daily range): BP systolic 118–194; BP diastolic 60–120; PULSE 87–99; RESP 14–28; TEMP 36.3–36.8; O2SAT 90–97; BMI 26.1
[2024-02-01 00:09] LABS: HIV (1&2) Antibody Rapid NONREACTIVE (NONREACTIVE)
[2024-02-01] MEDS: HEPARIN SODIUM 5,000 UNIT/ML VIAL 5000 UNIT SUBCUT ×3 (00:17→23:08)
[2024-02-01 00:20] LABS: Reflex Lactic Add Lactic Reflex
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
[2024-02-01 00:50] LABS: Troponin I 0.06 ng/ml (0.00-0.034)
[2024-02-01 00:52] LABS: Lactic Acid Follow Up (RFLX 1) 1.2 mmol/L (0.7-2.1)
[2024-02-01] MEDS: IPRATROPIUM/ALBUTEROL 3 ML NEB IH ×4 (02:55→18:20)
--- NOTE | 2024-02-01 02:55 | PC.NURSE ---
patient was suctioned and gave prn neb by RT r/t inability to cough up thick secretions and continuous coughing episodes.
[2024-02-01] MEDS: HYDRALAZINE 20MG/ML VIAL 10 MG IV (03:19)
--- NOTE | 2024-02-01 03:27 | PC.NURSE ---
prn hydralazine administered.
[2024-02-01 03:50] LABS: Troponin I 0.06 ng/ml (0.00-0.034)
[2024-02-01 06:24] LABS: Alanine Aminotransferase 22 U/L (12-78); Albumin Level 3.3 g/dl (3.5-5.0); Albumin/Globulin Ratio 1.1 (1.1-1.8); Alkaline Phosphatase 118 U/L (38-126); Anion Gap 12.9 mEq/L (5-15); Aspartate Amino Transferase 25 U/L (14-36); Bilirubin,Total 0.4 mg/dl (0.2-1.3); Blood Urea Nitrogen 25 mg/dl (7-17); Calcium 9.1 mg/dl (8.4-10.2); Carbon Dioxide 24 mmol/L (22.0-30.0); Chloride 106 mmol/L (98-107); Creatinine Clearance Estimated 41 mL/min (50-200); Estimated Glomerular Filt Rate 34 ml/min (>60); GFR (African American) 42 ML/MIN (>60); Globulin 2.9 g/dL (1.3-3.2); Glucose 134 mg/dl (74-100); Magnesium 1.9 mg/dl (1.6-2.3); Potassium 3.9 mmoL/L (3.5-5.1); Sodium 139 mmol/L (136-145); Total Protein,Serum 6.2 g/dl (6.3-8.2)
[2024-02-01 06:38] LABS: Basophils % 0.1 % (0.1-2.0); Hematocrit 36.3 % (37.0-47.0); Hemoglobin 11.6 g/dL (12.2-16.2); Lymphocytes # 0.4 K/mm3 (0.7-4.5); Lymphocytes % 3.6 % (10-50); Mean Corpuscular HGB Conc 31.9 g/dL (31.8-35.4); Mean Corpuscular Hemoglobin 26.8 pg (27.0-31.2); Mean Platelet Volume 7.8 fl (7.4-10.4); Monocytes # 0.3 K/mm3 (0.1-1.0); Monocytes % 2.9 % (1.7-9.3); Neutrophils # 10.9 K/mm3 (1.8-7.8); Neutrophils % 93.4 % (37.0-80.0); Platelet Count 314 K/mm3 (142-424); Red Blood Count 4.32 M/mm3 (4.20-5.40); Red Cell Distribution Width 15.6 % (11.5-17.5); White Blood Count 11.7 K/mm3 (4.8-10.8)
[2024-02-01 06:53] LABS: MANUAL DIFFERENTIAL MANUAL DIFFERENTIAL (MANUAL DIFF)
--- NOTE | 2024-02-01 08:28 | PC.NURSE ---
Attempted to assess pt 3 times since receiving report. pt is eating breakfast and does not want to be assessed until she is finished. informed pt that she is an ICU pt and staff need to assess her so that she can be properly monitored for any potential changes. pt continued to eat breakfast. will attempt assessment again in 10 minutes. it is noted that pt is a/o x 4 no visible distress noted. pt is currently on 5 lpm with o2 sats in the mid 90's
[2024-02-01 09:06] LABS: Thyroid Stimulating Hormone 0.29 uIU/mL (0.465-4.68)
[2024-02-01] MEDS: SPIRONOLACTONE 25MG TABLET 50 MG PO (09:26)
[2024-02-01] MEDS: FUROSEMIDE 40MG/4ML VIAL 40 MG IV ×2 (09:26→16:51)
[2024-02-01] MEDS: SACUBITRIL/VALSARTAN 24-26MG TABLET 1 EACH PO ×2 (09:26→20:47)
[2024-02-01] MEDS: guaiFENesin 600 MG TAB.ER.12H PO ×2 (09:26→20:47)
[2024-02-01 09:27] LABS: Lymphocytes % 3 % (10-50); Monocytes % 2 % (2-9); Neutrophils % 95 % (42-76); Platelet Estimate Normal; RBC Morphology Normal; Total Cells Counted 100
[2024-02-01] MEDS: ASPIRIN EC 81MG TABLET 81 MG PO (09:27)
[2024-02-01 09:44] LABS: Chol/HDL Ratio 3.4 (1-3.5); Cholesterol 127 mg/dl (140-200); HDL Cholesterol 37 mg/dl (40-60); Triglycerides 89 mg/dl (30-150); VLDL Cholesterol 18 mg/dL (0-40)
[2024-02-01 09:55] LABS: Direct LDL Cholesterol 67.53 mg/dL (100-129)
[2024-02-01 10:29] LABS: Free T4 (Free Thyroxine) 2.04 ng/dl (0.78-2.19)
[2024-02-01 10:54] LABS: Hemoglobin A1C 5.3 % (4.0-6.0)
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
--- OUTSIDE RECORDS SUMMARY | 2024-02-01 15:21 | XMS_ITS | Encounter Summary ---
Author Organization Healthcare Address [address] [place] [address] Care Team Providers Care Duplication Specialist Name Role Phone Nico Hayward MD Primary Care Provider + [phone] Ryan Rice MD Unavailable [phone] Encounter Details Date Type Department Care Team (Late st Contact Info) Description 05/11/2022 Telephone OR Clinic Cardiothoracic [address] [place] [address], [address] [place] [address] Lavonne Dugan, RN [address] [facility] [address] [place] [address] Social History Tobacco Use Types Packs/Day Years [...] file Not on file Not on file COVID-19 Exposure Response Date Recorded In the last 10 days, have yo u been in contact with someone who was confirmed or suspected to have Coronavirus/COVID-19? No / Unsure 05/05/2022 2:01 PM EST documented as of this encounter Miscellaneous Notes * Telephone Encounter - Lavonne Dugan RN - 05/11/2022 4:25 PM EST Called and spoke to Dr. Hayward's nurse. They will see Ms. Hawkins and monitor creatinine. Repeat creat was 1.5. documented in this encounter Plan of Treatment Not on file documented as of this encounter Visit Diagnoses Not on filedocumented in this encounter Additional Health Concerns Assessment Noted Time A fall risk assessment has been complete d for the patient 05/05/2022 2:35 PM EST A Body Mass Index follow-up plan has been documented for the patient 05/05/2022 3:19 PM EST documented as of this encounter Care Teams Duplication Specialist Relationship Specialty Start Date End Date Nico Hayward MD [address] [place] [address] PCP - General 07/17/20 Ryan Rice MD [address] [place] [address] Referring Physician Cardiology 03/21/22 documented as of this encounter
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
--- OUTSIDE RECORDS SUMMARY | 2024-02-01 15:21 | XMS_ITS | Encounter Summary ---
Author Organization Healthcare Address [address] [place] [address] Care Team Providers Care Provider Service Representative Name Role Phone Nico Hayward MD Primary Care Provider + [phone] Ryan Rice MD Unavailable [phone] Encounter Details Date Type Department Care Team (Late st Contact Info) Description 05/27/2022 Orders Only [facility] [address] [place] [address] Nannette Leslie Stage 3b chronic kidney disease (CMS/HCC) (Primary Dx); Vitamin D deficiency Social History Tobacco Use Types Packs/Day Years [...] PM EST documented as of this encounter Plan of Treatment Not on file documented as of this encounter Visit Diagnoses Diagnosis Stage 3b chronic kidney disease (CMS/HCC)- Primary Vitamin D deficiency documented in this encounter Additional Health Concerns Assessment Noted Time A fall risk assessment has been complete d for the patient 05/05/2022 2:35 PM EST A Body Mass Index follow-up plan has been documented for the patient 05/05/2022 3:19 PM EST documented as of this encounter Care Teams Provider Service Representative Relationship Specialty Start Date End Date Nico Hayward MD [address] [place] [address] PCP - General 07/17/20 Ryan Rice MD [address] [place] [address] Referring Physician Cardiology 03/21/22 documented as of this encounter
--- OUTSIDE RECORDS SUMMARY | 2024-02-01 15:21 | XMS_ITS | Encounter Summary ---
Author Organization [facility] Address [address] [place] [address] Care Team Providers Care Lacing String Cutter Name Role Phone Nico Hayward MD Primary Care Provider + [phone] Ryan Rice MD Unavailable [phone] Encounter Details Date Type Department Care Team (Latest Contact Info) Description 07/04/2022 Travel Social History Tobacco Use Types Packs/Day Years [...] on file documented as of this encounter Plan of [...] documented as of this encounter Care Teams Lacing String Cutter Relationship Specialty Start Date End Date Nico Hayward MD [address] [place] [address] PCP - General 07/17/20 Ryan Rice MD [facility] [address] [place] [address] Referring Physician Cardiology 03/21/22 documented as of this encounter
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
--- OUTSIDE RECORDS SUMMARY | 2024-02-01 15:22 | XMS_ITS | Encounter Summary ---
Author Organization Healthcare Address [address] [place] [address] Care Team Providers Care Research Methods Instructor Name Role Phone Nico Hayward MD Primary Care Provider + [phone] Ryan Rice MD Unavailable [phone] Encounter Details Date Type Department Care Team (Late st Contact Info) Description 04/15/2022 Telephone [facility] [address] [place] [address], [address] [place] [address] Lavonne Dugan, RN [address] [id number] [place] [address] Social History Tobacco Use Types Packs/Day Years Used Date Smoking Tobacco: Every Day Cigarettes 1 59 Passive Smoke Exposure: Current Smokeless Tobacco: Never [...] suspected to have Coronavirus/COVID-19? No / Unsure 04/05/2022 11:04 AM EST documented as of this encounter Miscellaneous Notes * Telephone Encounter - Lavonne Dugan RN - 04/15/2022 10:45 AM EST Called to follow-up on discharge. Spoke to her daughter. She's doing good. Physical therapy cameand worked with her today. She sees her PCP next Monday. No questions or concerns. I made sure shehad my contact information. documented in this encounter Plan of Treatment Not on file documented as of this encounter Visit Diagnoses Not on filedocumented in this encounter Additional Health Concerns Assessment Noted Time A fall risk assessment has been complete d for the patient 03/17/2022 9:15 AM EST documented as of this encounter Care Teams Research Methods Instructor Relationship Specialty Start Date End Date Nico Hayward MD [address] [place] [address] PCP - General 07/17/20 Ryan Rice MD [address] [place] [address] Referring Physician Cardiology 03/21/22 documented as of this encounter
--- OUTSIDE RECORDS SUMMARY | 2024-02-01 15:22 | XMS_ITS | Encounter Summary ---
Author Organization Healthcare Address [address] [place] [id number] Care Team Providers Care Carbider Name Role Phone Nico Hayward MD Primary Care Provider + [phone] Ryan Rice MD Unavailable [phone] Encounter Details Date Type Department Care Team (Latest Contact Info) Description 05/05/2022 Travel Social History Tobacco Use Types Packs/Day [...] documented as of this encounter Care Teams Carbider Relationship Specialty Start Date End Date Nico Hayward MD [address] [place] [address] PCP - General 07/17/20 Ryan Rice MD [address] [place] [address] Referring Physician Cardiology 03/21/22 documented as of this encounter
--- OUTSIDE RECORDS SUMMARY | 2024-02-01 15:22 | XMS_ITS | Encounter Summary ---
Author Organization [facility] Address [address] [place] [address] Care Team Providers Care Java Swing Developer Name Role Phone Nico Hayward MD Primary Care Provider + [phone] Ryna Rice MD Unavailable [phone] Encounter Details Date Type Department Care Team (Latest Contact Info) Description 05/05/2022 2:19 PM EST - 05/05/2022 11:59 PM EST Hospital Encounter [facility] [address] [place] [address] Coronary artery disease, unspecified vessel or lesion type, unspecified whether angina present, unspecified whether [place] or transplanted heart Discharge Disposition: Home or Self Care Social History Tobacco Use Types Packs/Day Years [...] PM EST documented as of this encounter Medications at Time of Discharge acetaminophen (Tylenol) 325 MG tablet Take 2 tablets (650 mg total) by mouth every 6 (six) hours if needed for pain. 100 tablet 04/14/2022 aspirin 81 MG EC tablet Take 81 mg by mouth 1 (one) time each day. atorvastatin (Lipitor) 80 MG tablet Take 1 tablet (80 mg total) by mouth every night. 30 tablet 2 04/14/2022 metoprolol tartrate (Lopressor) 25 MG tablet Take 3 tablets (75 mg total) by mouth 2 (two) times a day. 180 tablet 2 04/14/2022 documented as of this encounter Plan of Treatment Not on file documented as of this encounter Procedures Procedure Name Priority Date/Time Associated Diagnosis Comments XR CHEST 2 VIEWS Routine 05/05/2022 2:29 PM EST Coronary artery disease, unspecified vessel or lesion type, unspecified whether angina present, unspecified whether [place] or transplanted heart documented in this encounter [...] XR CHEST 2 VIEWS ordered by NICO JUAREZ, [id number] CLINICAL INDICATION: CAD TECHNIQUE: XR CHEST 2 VIEWS COMPARISON: Chest radiograph 04/14/2021 FINDINGS: Stable postoperative changes in the chest. Improved aeration of left lung base. Small bilateral pleural effusions. No significant pneumothorax. Degenerative changes of the thoracic spine. Procedure Note Nelson Juarez MD - 05/05/2022 Exam/Procedure: XR CHEST 2 VIEWS ordered by NICO JUAREZ, [id number] CLINICAL INDICATION: CAD TECHNIQUE: XR CHEST 2 [...] Nelson Juarez MD on 05/05/2022 6:14 PM Nico Juarez MD IMG XR PROCEDURES Final Resu lt documented in this encounter Visit Diagnoses Diagnosis Coronary artery disease, unspecified vessel or lesion type, unspecified whether angina present, unspecified whether [place] or transplanted heart documented in this encounter Additional Health Concerns Assessment Noted Time A fall risk assessment has been complete d for the patient 05/05/2022 2:35 PM EST A Body Mass Index follow-up plan has been documented for the patient 05/05/2022 3:19 PM EST documented as of this encounter Care Teams Java Swing Developer Relationship Specialty Start Date End Date Nico Hayward MD [address] [place] [address] PCP - General 07/17/20 Ryan Rice MD [facility] [address] [place] [address] Referring Physician Cardiology 03/21/22 documented as of this encounter
--- OUTSIDE RECORDS SUMMARY | 2024-02-01 15:22 | XMS_ITS | Encounter Summary ---
Author Organization [facility] Address [address] [place] [address] Care Team Providers Care Strip Cleaner Name Role Phone Nico Hayward MD Primary Care Provider + [phone] Ryan Rice MD Unavailable [phone] Encounter Details Date Type Department Care Team (Late st Contact Info) Description 05/10/2022 Orders Only [facility] [address], [address] [place] [address] Nico Rhoades MD [address] [place] [address] Coronary artery disease, unspecified vessel or lesion type, unspecified whether angina present, unspecified whether [place] or transplanted heart (Primary Dx) Social History [...] as of this encounter Visit Diagnoses Diagnosis Coronary artery disease, unspecified vessel or lesion type, unspecified whether angina present, unspecified whether [place] or transplanted heart- Primary documented in this encounter Additional Health Concerns Assessment Noted Time A fall risk assessment has been complete d for the patient 05/05/2022 2:35 PM EST A Body Mass Index follow-up plan has been documented for the patient 05/05/2022 3:19 PM EST documented as of this encounter Care Teams Strip Cleaner Relationship Specialty Start Date End Date Nico Hayward MD [address] [place] [address] PCP - General 07/17/20 Ryan Rice MD [address] [place] [id number] Referring Physician Cardiology 03/21/22 documented as of this encounter
--- OUTSIDE RECORDS SUMMARY | 2024-02-01 15:23 | XMS_ITS | Encounter Summary ---
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 diagram below for wall motion findings. ?Right??Ventricle: The right ventricle is mildly dilated. The right ventricular systolic function is mildly reduced. ?Great??Vessels: The aortic root is mildly dilated. The sinus of Valsalva (aortic root) diameter is 40 mm by leading edge to leading edge method. In the maximally visualized portion, the ascending aorta appears mildly dilated. The ascending aorta diameter is 40 mm. ?There is no recent study available for direct [id number] comparison. ?? Left Ventricle The left ventricle is normal size. There is normal left ventricular myocardial thickness and mass. No left ventricular mass or thrombus is seen. The LVEF as measured by biplane volume is 47%. The diastolic function is abnormal. There is grade II (moderate) diastolic dysfunction. The left ventricular filling pressure is elevated. See diagram below for wall motion findings. Right Ventricle The right ventricle is mildly dilated. The right ventricular basal diameter is dilated (>41 mm). The right ventricular mid-cavity diameter is normal (19-35 mm). The right ventricular systolic function is mildly reduced. The estimated global right ventricular systolic function based upon the tricuspid annular plane of systolic excursion (TAPSE) is normal (>=17 mm). The estimated global right ventricular systolic function based upon the TDI maximal systolic velocity is reduced (<9.5 cm/s). The spectral Doppler envelope of TR is not adequate for calculating the right ventricular systolic pressure (RVSP). Based upon other 2D and Doppler features, the RVSP is probably normal or at most mildly elevated. Left Atrium The left atrial size is mildly increased with an indexed volume of 35-41 mL/m2. The interatrial septum is intact with no evidence for an atrial septal defect. Right Atrium The right atrial volume index is mildly increased (33-39mL/m2). IVC/SVC The IVC was not well visualized, and an assumed pressure of 8mmHg was used for calculations. Mitral Valve There is mild mitral annular calcification. There is no mitral valve vegetation. There is trace mitral regurgitation. There is no mitral stenosis. Tricuspid Valve The tricuspid valve is normal in appearance. There is no tricuspid valve vegetation. There is trace tricuspid regurgitation. There is no tricuspid stenosis. Aortic Valve The aortic valve appears to be trileaflet. The cusp(s) are calcified. There is no aortic valve vegetation. There is trace aortic valve regurgitation. There is no hemodynamically significant valvular aortic stenosis. Pulmonic Valve The pulmonic valve is normal in appearance. There is no pulmonic valve vegetation. There is trace pulmonic regurgitation. There is no pulmonic stenosis. Pericardium No pericardial effusion. Great Vessels The aortic root is mildly dilated. The sinus of Valsalva (aortic root) diameter is 40 mm by leading edge to leading edge method. In the maximally visualized portion, the ascending aorta appears mildly dilated. The ascending aorta diameter is 40 mm. In the maximally visualized portion, the aortic arch appears normal in size. The main pulmonary artery is normal in size. The main pulmonary artery diameter is 24 mm. Study Details A complete transthoracic echocardiogram using two-dimensional (2D), m-mode, color and spectral flow Doppler imaging was performed. Definity contrast was used during the study. Overall the study quality was adequate. The study was technically difficult. The study was technically difficult due to patient's clinical status. BP: 109/52 mmHg. Heart Rate: 70 bpm. Heart rate was normal. Height: 167.6 cm. Weight: 79.4 kg. BSA: 1.89 m2. The heart rhythm during this exam was most suggestive of a sinus rhythm. Study Recommendation There is no recent study available for direct [id number] comparison. Wall Scoring Baseline Score Index: 1.65 The following segments are akinetic: basal inferolateral, basal anterolateral, mid inferolateral and mid anterolateral. The following segments are hypokinetic: basal anterior, mid anterior and apical lateral. All other segments are normal. us lAena MARIANO CV ECHO PROCEDURES Final Result * Magnesium (04/13/2022 12:15 PM EST) Magnesium, Plasma 1.9 1.9 - 2.4 mg/dL 04/13/2022 1:49 PM EST [facility] Blood Venous blood specimen / Unknown Venipuncture / Unknown 04/13/2022 12:15 PM EST 04/13/2022 1:12 PM EST us Alena MARIANO LAB BLOOD ORDERABLES Fin al Result [facility] [address] [place] [address] * (ABNORMAL) Basic metabolic panel (04/13/2022 12:15 PM EST) Glucose, Plasma 133(H) 74 - 99 mg/dL 04/13/2022 1:49 PM EST [facility] BUN, Plasma 18 8 - 23 mg/dL 04/13/2022 1:49 PM EST [facility] Creatinine, Plasma 1.26(H) 0.60 - 1.10 mg/dL 04/13/2022 1:49 PM EST [facility] BUN/Creatinine Ratio 14 04/13/2022 1:49 PM EST [facility] Sodium, Plasma 138 136 - 145 mmol/L 04/13/2022 1:49 PM EST [facility] Potassium, Plasma 4.0 3.7 - 4.8 mmol/L 04/13/2022 1:49 PM EST [facility] Comment:Reference range for Serum potassium is 0.2 to 0.5 mmol/L higher than Plasma range. Chloride, Plasma 102 97 - 107 mmol/L 04/13/2022 1:49 PM EST [facility] CO2, Plasma 26 22 - 29 mmol/L 04/13/2022 1:49 PM EST [facility] Anion Gap 10 6 - 16 mmol/L 04/13/2022 1:49 PM EST [facility] Total Calcium, Plasma 9.0 8.9 - 10.2 mg/dL 04/13/2022 1:49 PM EST [facility] eGFRcr 46.9 mL/min/1.7 3m*2 04/13/2022 1:49 PM EST [facility] Comment: Reported eGFRcr in mL/min/1.73m2 is based the CKD-EPI 2021 equation that does not use a race coefficient. Effective 09/29/21 our laboratory changed the eGFR calculation to the CKD-EPI 2021 equation from the previously reported eGFR, based on the MDRD equation. ??For comparisons between the two equations, please see laboratory website: ??[email or web address] Blood Venous blood specimen / Unknown Venipuncture / Unknown 04/13/2022 12:15 PM EST 04/13/2022 1:12 PM EST us Alena W Halkyard PA LAB BLOOD ORDERABLES Fin al Result [facility] [address] [place] [address] * (ABNORMAL) CBC W/O Differential (04/13/2022 12:15 PM EST) WBC Count 12.49(H) 3.70 - 10.30 10*3/uL LAB HEMATOLOGY METHOD 04/13/2022 1:06 PM EST [facility] RBC Count 3.67(L) 3.90 - 5.20 10*6/uL LAB HEMATOLOGY METHOD 04/13/2022 1:06 PM EST [facility] HGB 10.3(L) 11.2 - 15.7 g/dL LAB HEMATOLOGY METHOD 04/13/2022 1:06 PM EST [facility] HCT 32.6(L) 34.0 - 45.0 % LAB HEMATOLOGY METHOD 04/13/2022 1:06 PM EST [facility] Platelet Count 344 155 - 369 10*3/uL LAB HEMATOLOGY METHOD 04/13/2022 1:06 PM EST [facility] MCV 89 79 - 98 fL LAB HEMATOLOGY METHOD 04/13/2022 1:06 PM EST [facility] MCH 28.1 26.0 - 32.0 pg LAB HEMATOLOGY METHOD 04/13/2022 1:06 PM EST [facility] MCHC 31.6 30.7 - 35.5 g/dL LAB HEMATOLOGY METHOD 04/13/2022 1:06 PM EST [facility] RDW 15.2(H) 11.5 - 14.5 % LAB HEMATOLOGY METHOD 04/13/2022 1:06 PM EST [facility] MPV 10.1 8.8 - 12.5 fL LAB HEMATOLOGY METHOD 04/13/2022 1:06 PM EST [facility] nRBC 0.0 <=0.0 per 100 WBCs LAB HEMATOLOGY METHOD 04/13/2022 1:06 PM EST [facility] Blood Venous blood specimen / Unknown Venipuncture / Unknown 04/13/2022 12:15 PM EST 04/13/2022 12:56 PM EST Alena MARIANO LAB BLOOD ORDERABLES Fin al Result [facility] [address] [place] [id number] * XR Chest 2 Views (04/13/2022 8:35 AM EST) Anatomical Region Laterality Modality Chest Computed Radiogr aphy Impressions 04/13/2022 9:57 AM EST Removal of right IJ central line and bilateral chest tubes, otherwise stable. CRITICAL RESULT: ?? No. COMMUNICATION: Per this written report. By electronically signing this report, I, the attending physician, attest that I have personally reviewed the images/data for the above examination(s) and agree with the final edited report. Dictated by Greg Lou MD on 04/13/2022 9:29 AM Signed by Benedict Duron MD on 04/13/2022 9:57 AM Narrative 04/13/2022 9:57 AM EST Exam/Procedure: XR CHEST 2 VIEWS ordered by ALENA JONES [id number] CLINICAL INDICATION: eval lung smith TECHNIQUE: XR CHEST 2 VIEWS COMPARISON: April 11, 2022 FINDINGS: Removal of right IJ central line and bilateral chest tubes. Stable sternotomy wires. Stable bilateral basilar and perihilar airspace opacities. No pneumothorax. Small bilateral pleural effusions. Procedure Note Benedict Duron MD - 04/13/2022 Exam/Procedure: XR CHEST 2 VIEWS ordered by ALENA JONES [id number] CLINICAL INDICATION: eval lung smith TECHNIQUE: XR CHEST 2 VIEWS COMPARISON: April 11, 2022 FINDINGS: Removal of right IJ central line and bilateral chest tubes. Stablesternotomy wires. Stable bilateral basilar and perihilar airspaceopacities. No pneumothorax. Small bilateral pleural effusions. IMPRESSION: Removal of right IJ central line and bilateral chest tubes, otherwisestable. CRITICAL RESULT: No. COMMUNICATION: Per this written report. By electronically signing this report, I, the attending physician, attestthat I have personally reviewed the images/data for the aboveexamination(s) and agree with the final edited report. Dictated by Greg Lou MD on 04/13/2022 9:29 AM Signed by Benedict Duron MD on 04/13/2022 9:57 AM Alena Jones PA IMG XR PROCEDURES Final Result * (ABNORMAL) POCT glucose meter (04/12/2022 8:27 PM EST) [facility] POCT Glucose 111(H) 74 - 99 mg/dL 04/12/2022 8:30 PM EST [facility] Comment:Accuracy of a glucos e result obtained from a capillary whole blood specimen relies upon adequate, non-compromised capillary blood flow. If the capillary glucose result is not consistent with the patient's clinical signs and symptoms, glucose testing should be repeated with either an arterial or venous sample on the glucometer or sent to the main labortory for testing. Comment 04/12/2022 8:30 PM EST [facility] Water Mangle Tender ID Rani Levy 04/12/2022 8:30 PM EST [employer] [facility] Device ID [id number] 04/12/2022 8:30 PM EST [facility] Specimen Type POC Capillary 04/12/2022 8:30 PM EST [facility] Blood Capillary blood specimen / Unknown 04/12/2022 8:27 PM EST 04/12/2022 8:30 PM EST Greg Juarez MD LAB POINT OF CARE TE ST DOCKED DEVICE UNSOLICITED RESULTS Final Result Performing Organization Address City/State/[facility] Co de Phone Number [facility] [address] [place] [address] * (ABNORMAL) POCT glucose meter (04/12/2022 5:20 PM EST) [facility] POCT Glucose 118(H) 74 - 99 mg/dL 04/12/2022 5:25 PM EST [facility] Comment:Accuracy of a glucos e result obtained from a capillary whole blood specimen relies upon adequate, non-compromised capillary blood flow. If the capillary glucose result is not consistent with the patient's clinical signs and symptoms, glucose testing should be repeated with either an arterial or venous sample on the glucometer or sent to the main labortory for testing. Comment 04/12/2022 5:25 PM EST [facility] Water Mangle Tender ID Rani Levy 04/12/2022 5:25 PM EST [facility] Device ID [id number] 04/12/2022 5:25 PM EST [facility] Specimen Type POC Capillary 04/12/2022 5:25 PM EST [facility] Blood Capillary blood specimen / Unknown 04/12/2022 5:20 PM EST 04/12/2022 5:25 PM EST Greg Juarez MD LAB POINT OF CARE TE ST DOCKED DEVICE UNSOLICITED RESULTS Final Result Performing Organization Address City/[facility]/ZIP Co de Phone Number [facility] [address] [place] [address] * POCT glucose meter (04/12/2022 11:39 AM EST) [facility] POCT Glucose 98 74 - 99 mg/dL 04/12/2022 11:45 AM EST [facility] Comment:Accuracy of a glucos e result obtained from a capillary whole blood specimen relies upon adequate, non-compromised capillary blood flow. If the capillary glucose result is not consistent with the patient's clinical signs and symptoms, glucose testing should be repeated with either an arterial or venous sample on the glucometer or sent to the main labortory for testing. Comment 04/12/2022 11:45 AM EST [facility] Water Mangle Tender ID Rani Levy 04/12/2022 11:45 AM EST [facility] Device ID [id number] 04/12/2022 11:45 AM EST [facility] Specimen Type POC Capillary 04/12/2022 11:45 AM EST [facility] Blood Capillary blood specimen / Unknown 04/12/2022 11:39 AM EST 04/12/2022 11:45 AM EST Greg Juarez MD LAB POINT OF CARE TE ST DOCKED DEVICE UNSOLICITED RESULTS Final Result Performing Organization Address City/[facility]/ZIP Co de Phone Number [facility] [address] [place] [address] * Magnesium (04/11/2022 11:56 PM EST) Magnesium, Plasma 1.9 1.9 - 2.4 mg/dL 04/12/2022 1:02 AM EST [facility] Blood Venous blood specimen / Unknown Venipuncture / Unknown 04/11/2022 11:56 PM EST 04/12/2022 12:32 AM EST us Greg Juarez MD LAB BLOOD ORDERABLES Final R esult [facility] [address] [place] [address] * (ABNORMAL) Renal function panel (04/11/2022 11:56 PM EST) Glucose, Plasma 107(H) 74 - 99 mg/dL 04/12/2022 1:02 AM [facility] BUN, Plasma 23 8 - 23 mg/dL 04/12/2022 1:02 AM [facility] Creatinine, Plasma 1.13(H) 0.60 - 1.10 mg/dL 04/12/2022 1:02 AM [facility] BUN/Creatinine Ratio 20 04/12/2022 1:02 AM [facility] Sodium, Plasma 137 136 - 145 mmol/L 04/12/2022 1:02 AM [facility] Potassium, Plasma 4.1 3.7 - 4.8 mmol/L 04/12/2022 1:02 AM [facility] Comment:Reference range for Serum potassium is 0.2 to 0.5 mmol/L higher than Plasma range. Chloride, Plasma 104 97 - 107 mmol/L 04/12/2022 1:02 AM [facility] CO2, Plasma 27 22 - 29 mmol/L 04/12/2022 1:02 AM [facility] Anion Gap 6 6 - 16 mmol/L 04/12/2022 1:02 AM [facility] Total Calcium, Plasma 8.6(L) 8.9 - 10.2 mg/dL 04/12/2022 1:02 AM [facility] Phosphorus, Plasma 2.4(L) 2.5 - 4.5 mg/dL 04/12/2022 1:02 AM [facility] Albumin, Plasma 3.0(L) 3.5 - 5.2 g/dL 04/12/2022 1:02 AM [facility] eGFRcr 53.4 mL/min/1.7 3m*2 04/12/2022 1:02 AM [facility] Comment: Reported eGFRcr in mL/min/1.73m2 is based the CKD-EPI 2021 equation that does not use a race coefficient. Effective 09/29/21 our laboratory changed the eGFR calculation to the CKD-EPI 2021 equation from the previously reported eGFR, based on the MDRD equation. ??For comparisons between the two equations, please see laboratory website: ??[email or web address] Blood Venous blood specimen / Unknown Venipuncture / Unknown 04/11/2022 11:56 PM EST 04/12/2022 12:32 AM EST us Greg Juarez MD LAB BLOOD ORDERABLES Final R esult Performing Organization Address City/State/[facility] Co de Phone Number [facility] [address] [place] [id number] * (ABNORMAL) CBC W/O Differential (04/11/2022 11:56 PM EST) WBC Count 13.02(H) 3.70 - 10.30 10*3/uL LAB HEMATOLOGY METHOD 04/12/2022 12:46 AM EST [facility] RBC Count 3.38(L) 3.90 - 5.20 10*6/uL LAB HEMATOLOGY METHOD 04/12/2022 12:46 AM EST [facility] HGB 9.3(L) 11.2 - 15.7 g/dL LAB HEMATOLOGY METHOD 04/12/2022 12:46 AM EST [facility] HCT 29.9(L) 34.0 - 45.0 % LAB HEMATOLOGY METHOD 04/12/2022 12:46 AM EST [facility] Platelet Count 282 155 - 369 10*3/uL LAB HEMATOLOGY METHOD 04/12/2022 12:46 AM EST [facility] MCV 89 79 - 98 fL LAB HEMATOLOGY METHOD 04/12/2022 12:46 AM EST [facility] MCH 27.5 26.0 - 32.0 pg LAB HEMATOLOGY METHOD 04/12/2022 12:46 AM EST [facility] MCHC 31.1 30.7 - 35.5 g/dL LAB HEMATOLOGY METHOD 04/12/2022 12:46 AM EST [facility] RDW 14.6(H) 11.5 - 14.5 % LAB HEMATOLOGY METHOD 04/12/2022 12:46 AM EST [facility] MPV 10.4 8.8 - 12.5 fL LAB HEMATOLOGY METHOD 04/12/2022 12:46 AM EST [facility] nRBC 0.0 <=0.0 per 100 WBCs LAB HEMATOLOGY METHOD 04/12/2022 12:46 AM EST [facility] Blood Venous blood specimen / Unknown Venipuncture / Unknown 04/11/2022 11:56 PM EST 04/12/2022 12:34 AM EST us Greg Juarez MD LAB BLOOD ORDERABLES Final R esult Performing Organization Address [facility] Co de Phone Number [facility] [address] [place] [address] * (ABNORMAL) POCT glucose meter (04/11/2022 9:00 PM EST) Pathologist [facility] [place] POCT Glucose 125(H) 74 - 99 mg/dL 04/11/2022 9:05 PM EST [facility] Comment:Accuracy of a glucos e result obtained from a capillary whole blood specimen relies upon adequate, non-compromised capillary blood flow. If the capillary glucose result is not consistent with the patient's clinical signs and symptoms, glucose testing should be repeated with either an arterial or venous sample on the glucometer or sent to the main labortory for testing. Comment 04/11/2022 9:05 PM EST [facility] Water Mangle Tender ID Jesus, Saba 04/11/2022 9:05 PM EST [facility] Device ID [id number] 04/11/2022 9:05 PM EST [facility] Specimen Type POC Capillary 04/11/2022 9:05 PM EST [facility] Blood Capillary blood specimen / Unknown 04/11/2022 9:00 PM EST 04/11/2022 9:05 PM EST us Greg Juarez MD LAB POINT OF CARE TE ST DOCKED DEVICE UNSOLICITED RESULTS Final Result Performing Organization Address [facility] Co ga Phone Number [facility] [address] [place] [address] * (ABNORMAL) POCT glucose meter (04/11/2022 12:16 PM EST) POCT Glucose 121(H) 74 - 99 mg/dL 04/11/2022 12:20 PM EST [facility] Comment:Accuracy of a glucos e result obtained from a capillary whole blood specimen relies upon adequate, non-compromised capillary blood flow. If the capillary glucose result is not consistent with the patient's clinical signs and symptoms, glucose testing should be repeated with either an arterial or venous sample on the glucometer or sent to the main labortory for testing. Comment 04/11/2022 12:20 PM EST [facility] Water Mangle Tender ID Marilin Rooney 04/11/2022 12:20 PM EST [facility] Device ID [id number] 04/11/2022 12:20 PM EST [facility] Specimen Type POC Capillary 04/11/2022 12:20 PM EST [facility] Blood Capillary blood specimen / Unknown 04/11/2022 12:16 PM EST 04/11/2022 12:20 PM EST Greg Juarez MD LAB POINT OF CARE TE ST DOCKED DEVICE UNSOLICITED RESULTS Final Result Performing Organization Address City/State/[facility] Co de Phone Number [facility] [address] [place] [address] * (ABNORMAL) POCT glucose meter (04/11/2022 9:04 AM EST) POCT Glucose 114(H) 74 - 99 mg/dL 04/11/2022 9:05 AM EST [facility] Comment:Accuracy of a glucos e result obtained from a capillary whole blood specimen relies upon adequate, non-compromised capillary blood flow. If the capillary glucose result is not consistent with the patient's clinical signs and symptoms, glucose testing should be repeated with either an arterial or venous sample on the glucometer or sent to the main labortory for testing. Comment 04/11/2022 9:05 AM EST [facility] Water Mangle Tender ID Marilin Rooney 04/11/2022 9:05 AM EST [facility] Device ID [id number] 04/11/2022 9:05 AM EST [facility] Specimen Type POC Capillary 04/11/2022 9:05 AM EST [facility] Blood Capillary blood specimen / Unknown 04/11/2022 9:04 AM EST 04/11/2022 9:05 AM EST us Greg Juarez MD LAB POINT OF CARE TE ST DOCKED DEVICE UNSOLICITED RESULTS Final Result [facility] [address] [place] [address] * XR Chest 1 View (04/11/2022 5:05 AM EST) Anatomical Region Laterality Modality Chest Digital Radiogra phy Impressions 04/11/2022 7:44 AM EST Stable exam. CRITICAL RESULT: ?? No. COMMUNICATION: Per this written report. Dictated by Natalie Amaya MD on 04/11/2022 7:43 AM Signed by Natalie Amaya MD on 04/11/2022 7:44 AM Narrative 04/11/2022 7:44 AM EST Exam/Procedure: XR CHEST 1 VIEW ordered by GREG JUAREZ, [id number] CLINICAL INDICATION: post op cabg TECHNIQUE: XR CHEST 1 VIEW COMPARISON: 04/10/2022 FINDINGS: Stable support hardware. Persistent perihilar and basilar airspace opacities. No enlarging pneumothorax. Stable cardiomediastinal contours. Procedure Note Natalie Amaya MD - 04/11/2022 Exam/Procedure: XR CHEST 1 VIEW ordered by GREG JUAREZ, [id number] CLINICAL INDICATION: post op cabg TECHNIQUE: XR CHEST 1 VIEW COMPARISON: 04/10/2022 FINDINGS: Stable support hardware. Persistent perihilar and basilar airspaceopacities. No enlarging pneumothorax. Stable cardiomediastinal contours. IMPRESSION: Stable exam. CRITICAL RESULT: No. COMMUNICATION: Per this written report. Dictated by Natalie Amaya MD on 04/11/2022 7:43 AM Signed by Natalie Amaya MD on 04/11/2022 7:44 AM us Greg Juarez MD IMG XR PROCEDURES Final Resu lt * Magnesium (04/11/2022 12:03 AM EST) Magnesium, Plasma 2.1 1.9 - 2.4 mg/dL 04/11/2022 1:03 AM EST [facility] Blood Venous blood specimen / Unknown Venipuncture / Unknown 04/11/2022 12:03 AM EST 04/11/2022 12:31 AM EST us Greg Juarez MD LAB BLOOD ORDERABLES Final R esult [facility] [address] [place] [address] * (ABNORMAL) Renal function panel (04/11/2022 12:03 AM EST) Glucose, Plasma 125(H) 74 - 99 mg/dL 04/11/2022 1:03 AM EST [facility] BUN, Plasma 37(H) 8 - 23 mg/dL 04/11/2022 1:03 AM EST [facility] Creatinine, Plasma 1.42(H) 0.60 - 1.10 mg/dL 04/11/2022 1:03 AM EST [facility] BUN/Creatinine Ratio 26 04/11/2022 1:03 AM EST [facility] Sodium, Plasma 138 136 - 145 mmol/L 04/11/2022 1:03 AM EST [facility] Potassium, Plasma 3.8 3.7 - 4.8 mmol/L 04/11/2022 1:03 AM [facility] Comment:Reference range for Serum potassium is 0.2 to 0.5 mmol/L higher than Plasma range. Chloride, Plasma 101 97 - 107 mmol/L 04/11/2022 1:03 AM EST [facility] CO2, Plasma 28 22 - 29 mmol/L 04/11/2022 1:03 AM EST [facility] Anion Gap 9 6 - 16 mmol/L 04/11/2022 1:03 AM EST [facility] Total Calcium, Plasma 8.1(L) 8.9 - 10.2 mg/dL 04/11/2022 1:03 AM EST [facility] Phosphorus, Plasma 3.2 2.5 - 4.5 mg/dL 04/11/2022 1:03 AM EST [facility] Albumin, Plasma 2.8(L) 3.5 - 5.2 g/dL 04/11/2022 1:03 AM EST [facility] eGFRcr 40.6 mL/min/1.7 3m*2 04/11/2022 1:03 AM EST [facility] Comment: Reported eGFRcr in mL/min/1.73m2 is based the CKD-EPI 2021 equation that does not use a race coefficient. Effective 09/29/21 our laboratory changed the eGFR calculation to the CKD-EPI 1 equation from the previously reported eGFR, based on the MDRD equation. ??For comparisons between the two equations, please see laboratory website: ??[email or web address] Blood Venous blood specimen / Unknown Venipuncture / Unknown 04/11/2022 12:03 AM EST 04/11/2022 12:31 AM EST us Greg Juarez MD LAB BLOOD ORDERABLES Final R esult [facility] [address] [place], [place] [id number] * (ABNORMAL) CBC W/O Differential (04/11/2022 12:03 AM EST) WBC Count 10.06 3.70 - 10.30 10*3/uL LAB HEMATOLOGY METHOD 04/11/2022 12:39 AM EST [facility] RBC Count 2.97(L) 3.90 - 5.20 10*6/uL LAB HEMATOLOGY METHOD 04/11/2022 12:39 AM EST [facility] HGB 8.2(L) 11.2 - 15.7 g/dL LAB HEMATOLOGY METHOD 04/11/2022 12:39 AM EST [facility] HCT 26.6(L) 34.0 - 45.0 % LAB HEMATOLOGY METHOD 04/11/2022 12:39 AM EST [facility] Platelet Count 194 155 - 369 10*3/uL LAB HEMATOLOGY METHOD 04/11/2022 12:39 AM EST [facility] MCV 90 79 - 98 fL LAB HEMATOLOGY METHOD 04/11/2022 12:39 AM EST [facility] MCH 27.6 26.0 - 32.0 pg LAB HEMATOLOGY METHOD 04/11/2022 12:39 AM EST [facility] MCHC 30.8 30.7 - 35.5 g/dL LAB HEMATOLOGY METHOD 04/11/2022 12:39 AM EST [facility] RDW 14.6(H) 11.5 - 14.5 % LAB HEMATOLOGY METHOD 04/11/2022 12:39 AM EST [facility] MPV 10.9 8.8 - 12.5 fL LAB HEMATOLOGY METHOD 04/11/2022 12:39 AM EST [facility] nRBC 0.0 <=0.0 per 100 WBCs LAB HEMATOLOGY METHOD 04/11/2022 12:39 AM EST [facility] Blood Venous blood specimen / Unknown Venipuncture / Unknown 04/11/2022 12:03 AM EST 04/11/2022 12:32 AM EST us Greg Juarez MD LAB BLOOD ORDERABLES Final R esult Performing Organization Address City/[facility]/ZIP Co de Phone Number [facility] [address] [place] [address] * (ABNORMAL) POCT glucose meter (04/10/2022 8:37 PM EST) Pathologist [facility] [place] POCT Glucose 111(H) 74 - 99 mg/dL 04/10/2022 8:40 PM EST [facility] Comment:Accuracy of a glucos e result obtained from a capillary whole blood specimen relies upon adequate, non-compromised capillary blood flow. If the capillary glucose result is not consistent with the patient's clinical signs and symptoms, glucose testing should be repeated with either an arterial or venous sample on the glucometer or sent to the main labortory for testing. Comment 04/10/2022 8:40 PM EST [facility] Water Mangle Tender ID Saba Lee 04/10/2022 8:40 PM EST [facility] Device ID [id number] 04/10/2022 8:40 PM EST [facility] Specimen Type POC Venous 04/10/2022 8:40 PM EST [facility] Blood Venous blood specimen / Unknown 04/10/2022 8:37 PM EST 04/10/2022 8:40 PM EST us Greg Juarez MD LAB POINT OF CARE TE ST DOCKED DEVICE UNSOLICITED RESULTS Final Result Performing Organization Address City/[facility]/ZIP Co de Phone Number [facility] [address] [place] [address] * POCT glucose meter (04/10/2022 5:10 PM EST) Pathologist [facility] [place] POCT Glucose 92 74 - 99 mg/dL 04/10/2022 5:15 PM EST [facility] Comment:Accuracy of a glucos e result obtained from a capillary whole blood specimen relies upon adequate, non-compromised capillary blood flow. If the capillary glucose result is not consistent with the patient's clinical signs and symptoms, glucose testing should be repeated with either an arterial or venous sample on the glucometer or sent to the main labortory for testing. Comment 04/10/2022 5:15 PM EST [facility] Water Mangle Tender ID Elizabeth Torres 04/10/2022 5:15 PM EST [facility] Device ID [id number] 04/10/2022 5:15 PM EST [facility] Specimen Type POC Capillary 04/10/2022 5:15 PM EST [facility] Blood Capillary blood specimen / Unknown 04/10/2022 5:10 PM EST 04/10/2022 5:15 PM EST us Greg Juarez MD LAB POINT OF CARE TE ST DOCKED DEVICE UNSOLICITED RESULTS Final Result [facility] [address] [place] [address] * Magnesium (04/10/2022 2:18 PM EST) [facility] Magnesium, Plasma 2.4 1.9 - 2.4 mg/dL 04/10/2022 3:07 PM EST [facility] Blood Venous blood specimen / Unknown Venipuncture / Unknown 04/10/2022 2:18 PM EST 04/10/2022 2:31 PM EST us Greg Juarez MD LAB BLOOD ORDERABLES Final R esult [facility] [address] [place] [address] * (ABNORMAL) Renal function panel (04/10/2022 2:18 PM EST) [facility] Glucose, Plasma 115(H) 74 - 99 mg/dL 04/10/2022 3:07 PM EST [facility] BUN, Plasma 39(H) 8 - 23 mg/dL 04/10/2022 3:07 PM EST [facility] Creatinine, Plasma 1.50(H) 0.60 - 1.10 mg/dL 04/10/2022 3:07 PM [facility] BUN/Creatinine Ratio 26 04/10/2022 3:07 PM [facility] Sodium, Plasma 141 136 - 145 mmol/L 04/10/2022 3:07 PM EST [facility] Potassium, Plasma 4.4 3.7 - 4.8 mmol/L 04/10/2022 3:07 PM [facility] Comment:Reference range for Serum potassium is 0.2 to 0.5 mmol/L higher than Plasma range. Chloride, Plasma 104 97 - 107 mmol/L 04/10/2022 3:07 PM [facility] CO2, Plasma 30(H) 22 - 29 mmol/L 04/10/2022 3:07 PM [facility] Anion Gap 7 6 - 16 mmol/L 04/10/2022 3:07 PM [facility] Total Calcium, Plasma 8.4(L) 8.9 - 10.2 mg/dL 04/10/2022 3:07 PM [facility] Phosphorus, Plasma 2.8 2.5 - 4.5 mg/dL 04/10/2022 3:07 PM [facility] Albumin, Plasma 2.9(L) 3.5 - 5.2 g/dL 04/10/2022 3:07 PM [facility] eGFRcr 38.0 mL/min/1.7 3m*2 04/10/2022 3:07 PM [facility] Comment: Reported eGFRcr in mL/min/1.73m2 is based the CKD-EPI 2021 equation that does not use a race coefficient. Effective 09/29/21 our laboratory changed the eGFR calculation to the CKD-EPI 2021 equation from the previously reported eGFR, based on the MDRD equation. ??For comparisons between the two equations, please see laboratory website: ??[email or web address] Blood Venous blood specimen / Unknown Venipuncture / Unknown 04/10/2022 2:18 PM EST 04/10/2022 2:31 PM EST Greg Juarez MD LAB BLOOD ORDERABLES Final R esult Performing Organization Address [facility] Co de Phone Number [facility] [address] [place] [address] * POCT glucose meter (04/10/2022 8:06 AM EST) POCT Glucose 85 74 - 99 mg/dL 04/10/2022 8:10 AM EST [facility] Comment:Accuracy of a glucos e result obtained from a capillary whole blood specimen relies upon adequate, non-compromised capillary blood flow. If the capillary glucose result is not consistent with the patient's clinical signs and symptoms, glucose testing should be repeated with either an arterial or venous sample on the glucometer or sent to the main labortory for testing. Comment 04/10/2022 8:10 AM EST [facility] Water Mangle Tender ID Elizabeth Torres 04/10/2022 8:10 AM EST [facility] Device ID [id number] 04/10/2022 8:10 AM EST [facility] Specimen Type POC Capillary 04/10/2022 8:10 AM EST [facility] Blood Capillary blood specimen / Unknown 04/10/2022 8:06 AM EST 04/10/2022 8:10 AM EST us Greg Juarez MD LAB POINT OF CARE TE ST DOCKED DEVICE UNSOLICITED RESULTS Final Result Performing Organization Address [facility] de Phone Number [facility] [address] [place] [address] * XR Chest 1 View (04/10/2022 6:12 AM EST) Anatomical Region Laterality Modality Chest Digital Radiogra phy Impressions 04/10/2022 1:49 PM EST Mild increase in interstitial prominence likely increased edema, otherwise stable chest radiograph CRITICAL RESULT: ?? No. COMMUNICATION: Per this written report. Dictated by Panchito Gaffney MD on 04/10/2022 1:48 PM Signed by Panchito Gaffney MD on 04/10/2022 1:49 PM Narrative 04/10/2022 1:49 PM EST Exam/Procedure: XR CHEST 1 VIEW ordered by GREG JUAREZ, [id number] CLINICAL INDICATION: post op cabg TECHNIQUE: Single AP view of chest. COMPARISON: Chest 1 day prior FINDINGS: Support devices in similar position. Bibasilar lung opacities are similar. Mild increased interstitial prominence likely component of edema. No pneumothorax. Procedure Note Panchito Gaffney MD - 04/10/2022 Exam/Procedure: XR CHEST 1 VIEW ordered by GREG JUAREZ, [id number] CLINICAL INDICATION: post op cabg TECHNIQUE: Single AP view of chest. COMPARISON: Chest 1 day prior FINDINGS: Support devices in similar position. Bibasilar lung opacities are similar.Mild increased interstitial prominence likely component of edema. Nopneumothorax. IMPRESSION: Mild increase in interstitial prominence likely increased edema, otherwisestable chest radiograph CRITICAL RESULT: No. COMMUNICATION: Per this written report. Dictated by Panchito Gaffney MD on 04/10/2022 1:48 PM Signed by Panchito Gaffney MD on 04/10/2022 1:49 PM us Greg Juarez MD IMG XR PROCEDURES Final Resu lt * (ABNORMAL) POCT glucose meter (04/10/2022 2:44 AM EST) Pathologist [facility] [place] POCT Glucose 103(H) 74 - 99 mg/dL 04/10/2022 2:55 AM EST [facility] Comment:Accuracy of a glucos e result obtained from a capillary whole blood specimen relies upon adequate, non-compromised capillary blood flow. If the capillary glucose result is not consistent with the patient's clinical signs and symptoms, glucose testing should be repeated with either an arterial or venous sample on the glucometer or sent to the main labortory for testing. Comment 04/10/2022 2:55 AM EST [facility] Water Mangle Tender ID Caren oRjo 04/10/19 2:55 AM EST [facility] Device ID [id number] 04/10/2022 2:55 AM EST [facility] Specimen Type POC Venous 04/10/2022 2:55 AM EST [facility] Blood Venous blood specimen / Unknown 04/10/2022 2:44 AM EST 04/10/2022 2:55 AM EST Greg Juarez MD LAB POINT OF CARE TE ST DOCKED DEVICE UNSOLICITED RESULTS Final Result [facility] [address] [place] [address] * (ABNORMAL) Magnesium (04/10/2022 2:35 AM EST) Magnesium, Plasma 2.5(H) 1.9 - 2.4 mg/dL 04/10/2022 3:27 AM EST [facility] Blood Venous blood specimen / Unknown Venipuncture / Unknown 04/10/2022 2:35 AM EST 04/10/2022 2:56 AM EST Greg Juarez MD LAB BLOOD ORDERABLES Final R esult Performing Organization Address [facility] Co de Phone Number [facility] [address] [place] [address] * (ABNORMAL) Renal function panel (04/10/2022 2:35 AM EST) Glucose, Plasma 105(H) 74 - 99 mg/dL 04/10/2022 3:27 AM EST [facility] BUN, Plasma 42(H) 8 - 23 mg/dL 04/10/2022 3:27 AM EST [facility] Creatinine, Plasma 1.56(H) 0.60 - 1.10 mg/dL 04/10/2022 3:27 AM EST [facility] BUN/Creatinine Ratio 04/10/2022 3:27 AM EST [facility] Sodium, Plasma 139 136 - 145 mmol/L 04/10/2022 3:27 AM EST [facility] Potassium, Plasma 3.9 3.7 - 4.8 mmol/L 04/10/2022 3:27 AM EST [facility] Comment:Reference range for Serum potassium is 0.2 to 0.5 mmol/L higher than Plasma range. Chloride, Plasma 103 97 - 107 mmol/L 04/10/2022 3:27 AM EST [facility] CO2, Plasma 29 22 - 29 mmol/L 04/10/2022 3:27 AM EST [facility] Anion Gap 7 6 - 16 mmol/L 04/10/2022 3:27 AM EST [facility] Total Calcium, Plasma 8.4(L) 8.9 - 10.2 mg/dL 04/10/2022 3:27 AM EST [facility] Phosphorus, Plasma 2.6 2.5 - 4.5 mg/dL 04/10/2022 3:27 AM EST [facility] Albumin, Plasma 3.0(L) 3.5 - 5.2 g/dL 04/10/2022 3:27 AM EST [facility] eGFRcr 36.3 mL/min/1.7 3m*2 04/10/2022 3:27 AM EST [facility] Comment: Reported eGFRcr in mL/min/1.73m2 is based the CKD-EPI 202 equation that does not use a race coefficient. Effective 09/29/21 our laboratory changed the eGFR calculation to the CKD-EPI 2021 equation from the previously reported eGFR, based on the MDRD equation. ??For comparisons between the two equations, please see laboratory website: ??[email or web address] Blood Venous blood specimen / Unknown Venipuncture / Unknown 04/10/2022 2:35 AM EST 04/10/2022 2:56 AM EST Greg Juarez MD LAB BLOOD ORDERABLES Final R esult [facility] [address] [place] [address] * (ABNORMAL) CBC W/O Differential (04/10/2022 2:35 AM EST) WBC Count 10.49(H) 3.70 - 10.30 10*3/uL LAB HEMATOLOGY METHOD 04/10/2022 3:07 AM EST [facility] RBC Count 2.97(L) 3.90 - 5.20 10*6/uL LAB HEMATOLOGY METHOD 04/10/2022 3:07 AM EST [facility] HGB 8.3(L) 11.2 - 15.7 g/dL LAB HEMATOLOGY METHOD 04/10/2022 3:07 AM EST [facility] HCT 26.6(L) 34.0 - 45.0 % LAB HEMATOLOGY METHOD 04/10/2022 3:07 AM EST [facility] Platelet Count 202 155 - 369 10*3/uL LAB HEMATOLOGY METHOD 04/10/2022 3:07 AM EST [facility] MCV 90 79 - 98 fL LAB HEMATOLOGY METHOD 04/10/2022 3:07 AM EST [facility] MCH 27.9 26.0 - 32.0 pg LAB HEMATOLOGY METHOD 04/10/2022 3:07 AM EST [facility] MCHC 31.2 30.7 - 35.5 g/dL LAB HEMATOLOGY METHOD 04/10/2022 3:07 AM EST [facility] RDW 15.0(H) 11.5 - 14.5 % LAB HEMATOLOGY METHOD 04/10/2022 3:07 AM EST [facility] MPV 10.8 8.8 - 12.5 fL LAB HEMATOLOGY METHOD 04/10/2022 3:07 AM EST [facility] nRBC 0.0 <=0.0 per 100 WBCs LAB HEMATOLOGY METHOD 04/10/2022 3:07 AM EST [facility] Blood Venous blood specimen / Unknown Venipuncture / Unknown 04/10/2022 2:35 AM EST 04/10/2022 2:56 AM EST Greg Juarez MD LAB BLOOD ORDERABLES Final R esult [facility] [address] [place] [address] * (ABNORMAL) POCT glucose meter (04/09/2022 10:54 PM EST) POCT Glucose 100(H) 74 - 99 mg/dL 04/09/2022 11:00 PM EST [facility] Comment:Accuracy of a glucos e result obtained from a capillary whole blood specimen relies upon adequate, non-compromised capillary blood flow. If the capillary glucose result is not consistent with the patient's clinical signs and symptoms, glucose testing should be repeated with either an arterial or venous sample on the glucometer or sent to the main labortory for testing. Comment 04/09/2022 11:00 PM EST [facility] Water Mangle Tender ID Caren Rojo 04/09/19 11:00 PM EST [facility] Device ID [id number] 04/09/2022 11:00 PM EST [facility] Specimen Type POC Venous 04/09/2022 11:00 PM EST [facility] Blood Venous blood specimen / Unknown 04/09/2022 10:54 PM EST 04/09/2022 11:00 PM EST Greg Juarez MD LAB POINT OF CARE TE ST DOCKED DEVICE UNSOLICITED RESULTS Final Result Performing Organization Address City/[facility] Co de Phone Number [facility] [address] [place] [address] * (ABNORMAL) POCT glucose meter (04/09/2022 10:50 PM EST) POCT Glucose 57(L) 74 - 99 mg/dL 04/09/2022 10:55 PM EST [facility] Comment:Accuracy of a glucos e result obtained from a capillary whole blood specimen relies upon adequate, non-compromised capillary blood flow. If the capillary glucose result is not consistent with the patient's clinical signs and symptoms, glucose testing should be repeated with either an arterial or venous sample on the glucometer or sent to the main labortory for testing. Comment 04/09/2022 10:55 PM EST [facility] Water Mangle Tender ID Caren Rojo 04/09/19 10:55 PM EST [facility] Device ID [id number] 04/09/2022 10:55 PM EST [facility] Specimen Type POC Capillary 04/09/2022 10:55 PM EST [facility] Blood Capillary blood specimen / Unknown 04/09/2022 10:50 PM EST 04/09/2022 10:55 PM EST Greg Juarez MD LAB POINT OF CARE TE ST DOCKED DEVICE UNSOLICITED RESULTS Final Result Performing Organization Address City/[facility] Co de Phone Number [facility] [address] [place] [address] * (ABNORMAL) POCT glucose meter (04/09/2022 9:43 PM EST) POCT Glucose 62(L) 74 - 99 mg/dL 04/09/2022 9:45 PM EST [facility] Comment:Accuracy of a glucos e result obtained from a capillary whole blood specimen relies upon adequate, non-compromised capillary blood flow. If the capillary glucose result is not consistent with the patient's clinical signs and symptoms, glucose testing should be repeated with either an arterial or venous sample on the glucometer or sent to the main labortory for testing. Comment 04/09/2022 9:45 PM EST [facility] Water Mangle Tender ID Caren Rojo 04/09/19 9:45 PM EST [facility] Device ID [id number] 04/09/2022 9:45 PM EST [facility] Specimen Type POC Capillary 04/09/2022 9:45 PM EST [facility] Blood Capillary blood specimen / Unknown 04/09/2022 9:43 PM EST 04/09/2022 9:45 PM EST Greg Juarez MD LAB POINT OF CARE TE ST DOCKED DEVICE UNSOLICITED RESULTS Final Result Performing Organization Address City/[facility]/ZIP Co de Phone Number [facility] [address] [place] [address] * (ABNORMAL) Magnesium (04/09/2022 5:25 PM EST) Magnesium, Plasma 2.7(H) 1.9 - 2.4 mg/dL 04/09/2022 6:05 PM EST [facility] Blood Venous blood specimen / Unknown Venipuncture / Unknown 04/09/2022 5:25 PM EST 04/09/2022 5:35 PM EST Greg Juarez MD LAB BLOOD ORDERABLES Final R esult [facility] [address] [place] [address] * (ABNORMAL) Renal Function Panel, Plasma (04/09/2022 5:25 PM EST) Glucose, Plasma 107(H) 74 - 99 mg/dL 04/09/2022 6:05 PM EST [facility] BUN, Plasma 46(H) 8 - 23 mg/dL 04/09/2022 6:05 PM EST [facility] Creatinine, Plasma 1.78(H) 0.60 - 1.10 mg/dL 04/09/2022 6:05 PM EST [facility] BUN/Creatinine Ratio 26 04/09/2022 6:05 PM EST [facility] Sodium, Plasma 140 136 - 145 mmol/L 04/09/2022 6:05 PM EST [facility] Potassium, Plasma 4.1 3.7 - 4.8 mmol/L 04/09/2022 6:05 PM EST [facility] Comment:Reference range for Serum potassium is 0.2 to 0.5 mmol/L higher than Plasma range. Chloride, Plasma 103 97 - 107 mmol/L 04/09/2022 6:05 PM EST [facility] CO2, Plasma 29 22 - 29 mmol/L 04/09/2022 6:05 PM EST [facility] Anion Gap 8 6 - 16 mmol/L 04/09/2022 6:05 PM EST [facility] Total Calcium, Plasma 8.4(L) 8.9 - 10.2 mg/dL 04/09/2022 6:05 PM EST [facility] Phosphorus, Plasma 2.9 2.5 - 4.5 mg/dL 04/09/2022 6:05 PM EST [facility] Albumin, Plasma 2.9(L) 3.5 - 5.2 g/dL 04/09/2022 6:05 PM EST [facility] eGFRcr 31.0 mL/min/1.7 3m*2 04/09/2022 6:05 PM EST [facility] Comment: Reported eGFRcr in mL/min/1.73m2 is based the CKD-EPI 2021 equation that does not use a race coefficient. Effective 09/29/21 our laboratory changed the eGFR calculation to the CKD-EPI 2021 equation from the previously reported eGFR, based on the MDRD equation. ??For comparisons between the two equations, please see laboratory website: ??[email or web address] Blood Venous blood specimen / Unknown Venipuncture / Unknown 04/09/2022 5:25 PM EST 04/09/2022 5:35 PM EST us Greg Juarez MD LAB BLOOD ORDERABLES Final R esult [facility] [address] [place] [address] * [place] CRITICAL CARE, E/M 30-74 MINUTES (04/09/2022 11:05 AM EST) Narrative Maverick Vivas MD - 04/09/2022 11:05 AM EST Maverick Vivas MD ? 04/09/2022 11:12 AM Critical Care Performed by: Maverick Vivas MD Authorized by: Maverick Vivas MD Critical care provider statement: ??Critical care time (minutes): ??38 ??Critical care time was exclusive of: ??Separately billable procedures and treating other patients and teaching time ??Critical care was time spent personally by me on the following activities: ??Development of treatment plan with patient or surrogate, ordering and performing treatments and interventions, discussions with consultants, ordering and review of laboratory studies, discussions with primary provider, ordering and review of radiographic studies, evaluation of patient's response to treatment and examination of patient ??Critical care statement: ??I saw and evaluated the patient with the resident/ fellow. I discussed the case with the resident/ fellow and agree with the findings and plan as documented. Comments: ?? She is a bit frustrated this morning. Back pain remains. Had a bowel movement yesterday, we will continue her regimen. Breathing is stable. Finally out of RVR. Will continue digoxin,colchicine and metop for now. If RVR again we will utilize dilt us Maverick Vivas MD IN CLINIC/BEDSIDE ORDERABL ES Final Result * (ABNORMAL) Blood gas panel, arterial (04/09/2022 10:40 AM EST) pH, Arterial 7.43(H) 7.31 - 7.42 LAB HEMATOLOGY METHOD 04/09/2022 10:54 AM EST [facility] pCO2, Arterial 46(H) 32 - 45 mmHg LAB HEMATOLOGY METHOD 04/09/2022 10:54 AM EST [facility] pO2, Arterial 58(LL) >80 mmHg LAB HEMATOLOGY METHOD 04/09/2022 10:54 AM EST [facility] SO2, Measured, Arterial 90.1(L) 94 - 98 % LAB HEMATOLOGY METHOD 04/09/2022 10:54 AM EST [facility] Base Excess, Arterial 5.3(H) -2 - 3 mmol/L LAB HEMATOLOGY METHOD 04/09/2022 10:54 AM EST [facility] Bicarbonate, Calculated, Arterial 30(H) 22 - 26 mmol/L LAB HEMATOLOGY METHOD 04/09/2022 10:54 AM EST [facility] Hematocrit, Whole Blood 26.3(L) 34.0 - 45.0 % LAB HEMATOLOGY METHOD 04/09/2022 10:54 AM EST [facility] Sodium, Whole Blood 140 136 - 145 mmol/L LAB HEMATOLOGY METHOD 04/09/2022 10:54 AM EST [facility] Potassium, Whole Blood 3.9 3.6 - 4.9 mmol/L LAB HEMATOLOGY METHOD 04/09/2022 10:54 AM EST [facility] Chloride, Whole Blood 102 97 - 107 mmol/L LAB HEMATOLOGY METHOD 04/09/2022 10:54 AM EST [facility] Glucose, Whole Blood 103(H) 74 - 99 mg/dL LAB HEMATOLOGY METHOD 04/09/2022 10:54 AM EST [facility] Ionized Calcium, Whole Blood 4.7 4.6 - 5.1 mg/dL LAB HEMATOLOGY METHOD 04/09/2022 10:54 AM EST [facility] Lactate, Arterial, Whole Blood 0.7 0.5 - 1.6 mmol/L LAB HEMATOLOGY METHOD 04/09/2022 10:54 AM EST [facility] Blood Arterial blood specimen / Unknown Arterial Puncture / Unknown 04/09/2022 10:40 AM EST 04/09/2022 10:47 AM EST us Greg Juarez MD LAB BLOOD ORDERABLES Final R esult [facility] [address] [place] [address] * POCT glucose meter (04/09/2022 6:09 AM EST) POCT Glucose 96 74 - 99 mg/dL 04/09/2022 6:15 AM EST [facility] Comment:Accuracy of a glucos e result obtained from a capillary whole blood specimen relies upon adequate, non-compromised capillary blood flow. If the capillary glucose result is not consistent with the patient's clinical signs and symptoms, glucose testing should be repeated with either an arterial or venous sample on the glucometer or sent to the main labortory for testing. Comment 04/09/2022 6:15 AM EST [facility] Water Mangle Tender ID Constance Montoya 6:15 AM EST [facility] Device ID [id number] 04/09/2022 6:15 AM EST [facility] Specimen Type POC Arterial 04/09/2022 6:15 AM EST [facility] Blood Arterial blood specimen / Unknown 04/09/2022 6:09 AM EST 04/09/2022 6:15 AM EST us Greg Juarez MD LAB POINT OF CARE TE ST DOCKED DEVICE UNSOLICITED RESULTS Final Result [facility] [address] [place] [address] * XR Chest 1 View (04/09/2022 5:10 AM EST) Anatomical Region Laterality Modality Chest Digital Radiogra phy Impressions 04/09/2022 12:39 PM EST Support devices as described. Otherwise stable chest radiograph. CRITICAL RESULT: ?? No. COMMUNICATION: Per this written report. Dictated by Panchito Gaffney MD on 04/09/2022 12:38 PM Signed by Panchito Gaffney MD on 04/09/2022 12:39 PM Narrative 04/09/2022 12:39 PM EST Exam/Procedure: XR CHEST 1 VIEW ordered by GREG JUAREZ, [id number] CLINICAL INDICATION: post op cabg TECHNIQUE: Single AP view of chest. COMPARISON: Chest one day prior FINDINGS: Prior median sternotomy. Nasogastric tube now absent. Right internal venous catheter and bilateral chest tubes remain in position. No pneumothorax. Bibasilar lung opacity similar. Procedure Note Panchito Gaffney MD - 04/09/2022 Exam/Procedure: XR CHEST 1 VIEW ordered by GREG JUAREZ, [id number] CLINICAL INDICATION: post op cabg TECHNIQUE: Single AP view of chest. COMPARISON: Chest one day prior FINDINGS: Prior median sternotomy. Nasogastric tube now absent. Right internalvenous catheter and bilateral chest tubes remain in position. Nopneumothorax. Bibasilar lung opacity similar. IMPRESSION: Support devices as described. Otherwise stable chest radiograph. CRITICAL RESULT: No. COMMUNICATION: Per this written report. Dictated by Panchito Gaffney MD on 04/09/2022 12:38 PM Signed by Panchito Gaffney MD on 04/09/2022 12:39 PM us Greg Juarez MD IMG XR PROCEDURES Final Resu lt * XR Abdomen 1 View (04/09/2022 5:10 AM EST) Anatomical Region Laterality Modality Body Digital Radiogra phy Impressions 04/09/2022 9:10 AM EST Worsening ileus. CRITICAL RESULT: ?? No. COMMUNICATION: Per this written report. Dictated by Daija Cope MD on 04/09/2022 9:08 AM Signed by Daija Cope MD on 04/09/2022 9:10 AM Narrative 04/09/2022 9:10 AM EST Exam/Procedure: XR ABDOMEN 1 VIEW ordered by GREG JUAREZ, [id number] CLINICAL INDICATION: ileus with NGT TECHNIQUE: Supine radiograph of the abdomen. COMPARISON: Abdominal x-ray 21 hours ago FINDINGS: Dilated gas-filled cecum and transverse colon. Cecum measures up to 12.7 cm, previously 10.4 cm. Decompressed descending colon sigmoid and rectum. Some of the visualized small bowel loops in the right lower quadrant are mildly dilated. Otherwise paucity of small bowel gas, could be fluid-filled. No pneumatosis or free air. Procedure Note Daija Cope MD - 04/09/2022 Exam/Procedure: XR ABDOMEN 1 VIEW ordered by GREG JUAREZ, [id number] CLINICAL INDICATION: ileus with NGT TECHNIQUE: Supine radiograph of the abdomen. COMPARISON: Abdominal x-ray 21 hours ago FINDINGS: Dilated gas-filled cecum and transverse colon. Cecum measures up to 12.7cm, previously 10.4 cm. Decompressed descending colon sigmoid and rectum.Some of the visualized small bowel loops in the right lower quadrant aremildly dilated. Otherwise paucity of small bowel gas, could befluid-filled. No pneumatosis or free air. IMPRESSION: Worsening ileus. CRITICAL RESULT: No. COMMUNICATION: Per this written report. Dictated by Daija Cope MD on 04/09/2022 9:08 AM Signed by Daija Cope MD on 04/09/2022 9:10 AM us Greg Juarez MD IMG XR PROCEDURES Final Resu lt * (ABNORMAL) Magnesium (04/09/2022 2:04 AM EST) Magnesium, Plasma 2.7(H) 1.9 - 2.4 mg/dL 04/09/2022 2:45 AM EST [facility] Blood Arterial blood specimen / Unknown Venipuncture / Unknown 04/09/2022 2:04 AM EST 04/09/2022 2:12 AM EST us Greg Juarez MD LAB BLOOD ORDERABLES Final R esult Performing Organization Address City/State/[facility] Co de Phone Number [facility] [address] [place] [address] * (ABNORMAL) Renal function panel (04/09/2022 2:04 AM EST) Glucose, Plasma 114(H) 74 - 99 mg/dL 04/09/2022 2:45 AM EST [facility] BUN, Plasma 45(H) 8 - 23 mg/dL 04/09/2022 2:45 AM EST [facility] Creatinine, Plasma 1.77(H) 0.60 - 1.10 mg/dL 04/09/2022 2:45 AM EST [facility] BUN/Creatinine Ratio 25 04/09/2022 2:45 AM EST [facility] Sodium, Plasma 139 136 - 145 mmol/L 04/09/2022 2:45 AM EST [facility] Potassium, Plasma 4.5 3.7 - 4.8 mmol/L 04/09/2022 2:45 AM EST [facility] Comment: Hemolyzed, result may be falsely increased. Reference range for Serum potassium is 0.2 to 0.5 mmol/L higher than Plasma range. Chloride, Plasma 104 97 - 107 mmol/L 04/09/2022 2:45 AM EST [facility] CO2, Plasma 26 22 - 29 mmol/L 04/09/2022 2:45 AM EST [facility] Anion Gap 9 6 - 16 mmol/L 04/09/2022 2:45 AM EST [facility] Total Calcium, Plasma 8.6(L) 8.9 - 10.2 mg/dL 04/09/2022 2:45 AM EST [facility] Phosphorus, Plasma 3.4 2.5 - 4.5 mg/dL 04/09/2022 2:45 AM EST [facility] Albumin, Plasma 2.8(L) 3.5 - 5.2 g/dL 04/09/2022 2:45 AM EST [facility] eGFRcr 31.2 mL/min/1.7 3m*2 04/09/2022 2:45 AM EST [facility] Comment: Reported eGFRcr in mL/min/1.73m2 is based the CKD-EPI 2021 equation that does not use a race coefficient. Effective 09/29/21 our laboratory changed the eGFR calculation to the CKD-EPI 2021 equation from the previously reported eGFR, based on the MDRD equation. ??For comparisons between the two equations, please see laboratory website: ??[email or web address] Blood Arterial blood specimen / Unknown Venipuncture / Unknown 04/09/2022 2:04 AM EST 04/09/2022 2:12 AM EST Greg Juarez MD LAB BLOOD ORDERABLES Final R esult Performing Organization Address City/State/[facility] Co de Phone Number [facility] [address] [place] [address] * (ABNORMAL) CBC W/O Differential (04/09/2022 2:04 AM EST) WBC Count 12.72(H) 3.70 - 10.30 10*3/uL LAB HEMATOLOGY METHOD 04/09/2022 2:20 AM EST [facility] RBC Count 2.91(L) 3.90 - 5.20 10*6/uL LAB HEMATOLOGY METHOD 04/09/2022 2:20 AM EST [facility] HGB 8.2(L) 11.2 - 15.7 g/dL LAB HEMATOLOGY METHOD 04/09/2022 2:20 AM EST [facility] HCT 25.7(L) 34.0 - 45.0 % LAB HEMATOLOGY METHOD 04/09/2022 2:20 AM EST [facility] Platelet Count 176 155 - 369 10*3/uL LAB HEMATOLOGY METHOD 04/09/2022 2:20 AM EST [facility] MCV 88 79 - 98 fL LAB HEMATOLOGY METHOD 04/09/2022 2:20 AM EST [facility] MCH 28.2 26.0 - 32.0 pg LAB HEMATOLOGY METHOD 04/09/2022 2:20 AM EST [facility] MCHC 31.9 30.7 - 35.5 g/dL LAB HEMATOLOGY METHOD 04/09/2022 2:20 AM EST [facility] RDW 15.1(H) 11.5 - 14.5 % LAB HEMATOLOGY METHOD 04/09/2022 2:20 AM EST [facility] MPV 10.5 8.8 - 12.5 fL LAB HEMATOLOGY METHOD 04/09/2022 2:20 AM EST [facility] nRBC 0.0 <=0.0 per 100 WBCs LAB HEMATOLOGY METHOD 04/09/2022 2:20 AM EST [facility] Blood Arterial blood specimen / Unknown Venipuncture / Unknown 04/09/2022 2:04 AM EST 04/09/2022 2:12 AM EST us Greg Juarez MD LAB BLOOD ORDERABLES Final R esult Performing Organization Address City/[facility] de Phone Number [facility] [address] [place] [address] * (ABNORMAL) POCT glucose meter (04/09/2022 1:09 AM EST) [facility] POCT Glucose 115(H) 74 - 99 mg/dL 04/09/2022 1:10 AM EST [facility] Comment:Accuracy of a glucos e result obtained from a capillary whole blood specimen relies upon adequate, non-compromised capillary blood flow. If the capillary glucose result is not consistent with the patient's clinical signs and symptoms, glucose testing should be repeated with either an arterial or venous sample on the glucometer or sent to the main labortory for testing. Comment 04/09/2022 1:10 AM EST [facility] Water Mangle Tender ID Constance Montoya 1:10 AM EST [facility] Device ID [id number] 04/09/2022 1:10 AM EST [facility] Specimen Type POC Arterial 04/09/2022 1:10 AM EST [facility] Blood Arterial blood specimen / Unknown 04/09/2022 1:09 AM EST 04/09/2022 1:10 AM EST Greg Juarez MD LAB POINT OF CARE TE ST DOCKED DEVICE UNSOLICITED RESULTS Final Result Performing Organization Address City/[facility] de Phone Number [facility] [address] [place] [address] * POCT glucose meter (04/09/2022 12:06 AM EST) POCT Glucose 76 74 - 99 mg/dL 04/09/2022 12:10 AM EST [facility] Comment:Accuracy of a glucos e result obtained from a capillary whole blood specimen relies upon adequate, non-compromised capillary blood flow. If the capillary glucose result is not consistent with the patient's clinical signs and symptoms, glucose testing should be repeated with either an arterial or venous sample on the glucometer or sent to the main labortory for testing. Comment 04/09/2022 12:10 AM EST [employer] [facility] Water Mangle Tender ID Ru Urban 12:10 AM EST [facility] Device ID [id number] 04/09/2022 12:10 AM EST [facility] Specimen Type POC Arterial 04/09/2022 12:10 AM EST [facility] Blood Arterial blood specimen / Unknown 04/09/2022 12:06 AM EST 04/09/2022 12:10 AM EST Greg Juarez MD LAB POINT OF CARE TE ST DOCKED DEVICE UNSOLICITED RESULTS Final Result Performing Organization Address [facility] de Phone Number [facility] [address] [place] [address] * [place] CRITICAL CARE, ADDL 30 MIN (04/08/2022 10:43 PM EST) Narrative Shon Roque MD - 04/08/2022 10:43 PM EST Shon Roque MD ? 04/08/2022 10:44 PM Critical Care Performed by: Shon Roque MD Authorized by: Shon Roque MD Critical care provider statement: ??Critical care time (minutes): ??38 ??Critical care time was exclusive of: ??Separately billable procedures and treating other patients and teaching time ??Critical care was time spent personally by me on the following activities: ??Development of treatment plan with patient or surrogate, ordering and performing treatments and interventions, ordering and review of laboratory studies, ordering and review of radiographic studies, evaluation of patient's response to treatment, examination of patient and obtaining history from patient or surrogate ??I assumed subsequent critical care for this patient from a provider in my division, on the same day: yes ?Critical care statement: ??I saw and evaluated the patient with the resident/ fellow. I discussed the case with the resident/ fellow and agree with the findings and plan as documented. us Shon Roque MD IN CLINIC/BEDSIDE ORDERABLE S Final Result * (ABNORMAL) Blood gas panel, arterial (04/08/2022 5:22 PM EST) [facility] pH, Arterial 7.41 7.31 - 7.42 LAB HEMATOLOGY METHOD 04/08/2022 5:30 PM EST [facility] pCO2, Arterial 45 32 - 45 mmHg LAB HEMATOLOGY METHOD 04/08/2022 5:30 PM EST [facility] pO2, Arterial 70(L) >80 mmHg LAB HEMATOLOGY METHOD 04/08/2022 5:30 PM EST [facility] SO2, Measured, Arterial 94.5 94 - 98 % LAB HEMATOLOGY METHOD 04/08/2022 5:30 PM EST [facility] Base Excess, Arterial 3.8(H) -2 - 3 mmol/L LAB HEMATOLOGY METHOD 04/08/2022 5:30 PM EST [facility] Bicarbonate, Calculated, Arterial 29(H) 22 - 26 mmol/L LAB HEMATOLOGY METHOD 04/08/2022 5:30 PM EST [facility] Hematocrit, Whole Blood 26.2(L) 34.0 - 45.0 % LAB HEMATOLOGY METHOD 04/08/2022 5:30 PM EST [facility] Sodium, Whole Blood 143 136 - 145 mmol/L LAB HEMATOLOGY METHOD 04/08/2022 5:30 PM EST [facility] Potassium, Whole Blood 3.9 3.6 - 4.9 mmol/L LAB HEMATOLOGY METHOD 04/08/2022 5:30 PM EST [facility] Chloride, Whole Blood 103 97 - 107 mmol/L LAB HEMATOLOGY METHOD 04/08/2022 5:30 PM EST [facility] Glucose, Whole Blood 108(H) 74 - 99 mg/dL LAB HEMATOLOGY METHOD 04/08/2022 5:30 PM EST [facility] Ionized Calcium, Whole Blood 4.7 4.6 - 5.1 mg/dL LAB HEMATOLOGY METHOD 04/08/2022 5:30 PM EST [facility] Lactate, Arterial, Whole Blood 0.9 0.5 - 1.6 mmol/L LAB HEMATOLOGY METHOD 04/08/2022 5:30 PM EST [facility] Blood Arterial blood specimen / Unknown Arterial Puncture / Unknown 04/08/2022 5:22 PM EST 04/08/2022 5:28 PM EST us Greg Juarez MD LAB BLOOD ORDERABLES Final R esult [facility] [address] [place] [address] * (ABNORMAL) Renal function panel (04/08/2022 5:06 PM EST) Glucose, Plasma 110(H) 74 - 99 mg/dL 04/08/2022 6:07 PM [facility] BUN, Plasma 45(H) 8 - 23 mg/dL 04/08/2022 6:07 PM [facility] Creatinine, Plasma 1.92(H) 0.60 - 1.10 mg/dL 04/08/2022 6:07 PM [facility] BUN/Creatinine Ratio 23 04/08/2022 6:07 PM [facility] Sodium, Plasma 143 136 - 145 mmol/L 04/08/2022 6:07 PM [facility] Potassium, Plasma 3.9 3.7 - 4.8 mmol/L 04/08/2022 6:07 PM [facility] Comment:Reference range for Serum potassium is 0.2 to 0.5 mmol/L higher than Plasma range. Chloride, Plasma 104 97 - 107 mmol/L 04/08/2022 6:07 PM [facility] CO2, Plasma 27 22 - 29 mmol/L 04/08/2022 6:07 PM [facility] Anion Gap 12 6 - 16 mmol/L 04/08/2022 6:07 PM [facility] Total Calcium, Plasma 8.7(L) 8.9 - 10.2 mg/dL 04/08/2022 6:07 PM [facility] Phosphorus, Plasma 3.8 2.5 - 4.5 mg/dL 04/08/2022 6:07 PM [facility] Albumin, Plasma 3.1(L) 3.5 - 5.2 g/dL 04/08/2022 6:07 PM EST [facility] eGFRcr 28.3 mL/min/1.7 3m*2 04/08/2022 6:07 PM EST [facility] Comment: Reported eGFRcr in mL/min/1.73m2 is based the CKD-EPI 2020 equation that does not use a race coefficient. Effective 09/29/21 our laboratory changed the eGFR calculation to the CKD-EPI 2021 equation from the previously reported eGFR, based on the MDRD equation. ??For comparisons between the two equations, please see laboratory website: ??[email or web address] Blood Venous blood specimen / Unknown Venipuncture / Unknown 04/08/2022 5:06 PM EST 04/08/2022 5:37 PM EST us Greg Juarez MD LAB BLOOD ORDERABLES Final R esult Performing Organization Address City/[facility]/ZIP Co de Phone Number [facility] [address] [place] [phone] * ECG Adult (04/08/2022 3:19 PM EST) EKG DIAGNOSIS CLASS Abnormal MUSE ECG Ventricular Rate 146 BPM MUSE ECG Atrial Rate 292 BPM MUSE ECG QRSD Interval 94 ms MUSE ECG QT Interval 256 ms MUSE ECG QTC Interval 398 ms MUSE ECG P [place] -77 degrees MUSE ECG R [place] -15 degrees MUSE ECG T Wave [place] 137 degrees MUSE ECG Diagnosis Atrial flutter MUSE ECG Diagnosis with 2:1 AV conduction MUSE ECG Diagnosis Inferior-digital retoucher ior infarct MUSE ECG Diagnosis , age undetermined MUSE ECG Diagnosis ST & MUSE ECG Diagnosis T wave abnormality, consider lateral ischemia MUSE ECG Diagnosis Abnormal ECG MUSE ECG Diagnosis Confirmed by Nathan Gill ([id number]) on 04/09/2022 2:42:46 PM MUSE ECG 04/08/2022 3:19 PM EST 04/09/2022 2:42 PM EST us Greg Juarez MD ECG ORDERABLES Final Result [facility] ECG * [place] CRITICAL CARE, E/M 30-74 MINUTES (04/08/2022 1:02 PM EST) Narrative Maverick Vivas MD - 04/08/2022 1:02 PM EST Maverick Vivas MD ? 04/08/2022 ??3:50 PM Critical Care Performed by: Maverick Vivas MD Authorized by: Maverick Vivas MD Critical care provider statement: ??Critical care time (minutes): ??38 ??Critical care time was exclusive of: ??Separately billable procedures and treating other patients and teaching time ??Critical care was time spent personally by me on the following activities: ??Development of treatment plan with patient or surrogate, ordering and performing treatments and interventions, discussions with consultants, ordering and review of laboratory studies, discussions with primary provider, ordering and review of radiographic studies, evaluation of patient's response to treatment and examination of patient ??Critical care statement: ??I saw and evaluated the patient with the resident/ fellow. I discussed the case with the resident/ fellow and agree with the findings and plan as documented. Comments: ?? Improved breathing. Had a bowel movement this afternoon. Will remove NG us Maverick Vivas MD IN CLINIC/BEDSIDE ORDERABL ES Final Result * (ABNORMAL) Blood gas panel, arterial (04/08/2022 11:25 AM EST) pH, Arterial 7.41 7.31 - 7.42 LAB HEMATOLOGY METHOD 04/08/2022 11:34 AM EST [facility] pCO2, Arterial 46(H) 32 - 45 mmHg LAB HEMATOLOGY METHOD 04/08/2022 11:34 AM EST [facility] pO2, Arterial 57(LL) >80 mmHg LAB HEMATOLOGY METHOD 04/08/2022 11:34 AM EST [facility] SO2, Measured, Arterial 88.8(L) 94 - 98 % LAB HEMATOLOGY METHOD 04/08/2022 11:34 AM EST [facility] Base Excess, Arterial 3.6(H) -2 - 3 mmol/L LAB HEMATOLOGY METHOD 04/08/2022 11:34 AM EST [facility] Bicarbonate, Calculated, Arterial 29(H) 22 - 26 mmol/L LAB HEMATOLOGY METHOD 04/08/2022 11:34 AM EST [facility] Hematocrit, Whole Blood 26.3(L) 34.0 - 45.0 % LAB HEMATOLOGY METHOD 04/08/2022 11:34 AM EST [facility] Sodium, Whole Blood 142 136 - 145 mmol/L LAB HEMATOLOGY METHOD 04/08/2022 11:34 AM EST [facility] Potassium, Whole Blood 4.1 3.6 - 4.9 mmol/L LAB HEMATOLOGY METHOD 04/08/2022 11:34 AM EST [facility] Chloride, Whole Blood 104 97 - 107 mmol/L LAB HEMATOLOGY METHOD 04/08/2022 11:34 AM EST [facility] Glucose, Whole Blood 121(H) 74 - 99 mg/dL LAB HEMATOLOGY METHOD 04/08/2022 11:34 AM EST [facility] Ionized Calcium, Whole Blood 4.7 4.6 - 5.1 mg/dL LAB HEMATOLOGY METHOD 04/08/2022 11:34 AM EST [facility] Lactate, Arterial, Whole Blood 1.0 0.5 - 1.6 mmol/L LAB HEMATOLOGY METHOD 04/08/2022 11:34 AM EST [facility] Blood Arterial blood specimen / Unknown Arterial Puncture / Unknown 04/08/2022 11:25 AM EST 04/08/2022 11:32 AM EST us Greg Juarez MD LAB BLOOD ORDERABLES Final R esult [facility] [address] [place], [place] [id number] * XR Abdomen 1 View (04/08/2022 7:45 AM EST) Anatomical Region Laterality Modality Body Digital Radiogra phy Impressions 04/08/2022 9:05 AM EST Persistent air-filled nondilated bowel loops similar to prior CT, likely represent ileus. CRITICAL RESULT: ?? No. COMMUNICATION: Per this written report. Dictated by Kaleb Jiménez MD on 04/08/2022 9:03 AM Signed by Kaleb Jiménez MD on 04/08/2022 9:05 AM Narrative 04/08/2022 9:05 AM EST Exam/Procedure: XR ABDOMEN 1 VIEW ordered by GREG JUAREZ, [id number] CLINICAL INDICATION: ileus TECHNIQUE: Supine radiograph of the abdomen. COMPARISON: CT dated 04/07/2022 FINDINGS: Persistent air-filled nondilated small and large bowel loops grossly similar to prior CT. No evidence of bowel obstruction. Air noted in the rectum. No evidence of pneumoperitoneum on current semierect radiograph. Degenerative changes in the visualized osseous structure. Postsurgical changes in the visualized lung bases. Procedure Note Kaleb Jiménez MD - 04/08/2022 Exam/Procedure: XR ABDOMEN 1 VIEW ordered by GREG JUAREZ, [id number] CLINICAL INDICATION: ileus TECHNIQUE: Supine radiograph of the abdomen. COMPARISON: CT dated 04/07/2022 FINDINGS: Persistent air-filled nondilated small and large bowel loops grosslysimilar to prior CT. No evidence of bowel obstruction. Air noted in therectum. No evidence of pneumoperitoneum on current semierect radiograph. Degenerative changes in the visualized osseous structure. Postsurgicalchanges in the visualized lung bases. IMPRESSION: Persistent air-filled nondilated bowel loops similar to prior CT, likelyrepresent ileus. CRITICAL RESULT: No. COMMUNICATION: Per this written report. Dictated by Kaleb Jiménez MD on 04/08/2022 9:03 AM Signed by Kaleb Jiménez MD on 04/08/2022 9:05 AM us Greg Juarez MD IMG XR PROCEDURES Final Resu lt * (ABNORMAL) Blood gas panel, arterial (04/08/2022 6:54 AM EST) pH, Arterial 7.41 7.31 - 7.42 LAB HEMATOLOGY METHOD 04/08/2022 7:13 AM EST [facility] pCO2, Arterial 46(H) 32 - 45 mmHg LAB HEMATOLOGY METHOD 04/08/2022 7:13 AM EST [facility] pO2, Arterial 53(LL) >80 mmHg LAB HEMATOLOGY METHOD 04/08/2022 7:13 AM EST [facility] SO2, Measured, Arterial 86.8(L) 94 - 98 % LAB HEMATOLOGY METHOD 04/08/2022 7:13 AM EST [facility] Base Excess, Arterial 4.2(H) -2 - 3 mmol/L LAB HEMATOLOGY METHOD 04/08/2022 7:13 AM EST [facility] Bicarbonate, Calculated, Arterial 29(H) 22 - 26 mmol/L LAB HEMATOLOGY METHOD 04/08/2022 7:13 AM EST [facility] Hematocrit, Whole Blood 26.1(L) 34.0 - 45.0 % LAB HEMATOLOGY METHOD 04/08/2022 7:13 AM EST [facility] Sodium, Whole Blood 141 136 - 145 mmol/L LAB HEMATOLOGY METHOD 04/08/2022 7:13 AM EST [facility] Potassium, Whole Blood 4.5 3.6 - 4.9 mmol/L LAB HEMATOLOGY METHOD 04/08/2022 7:13 AM EST [facility] Chloride, Whole Blood 102 97 - 107 mmol/L LAB HEMATOLOGY METHOD 04/08/2022 7:13 AM EST [facility] Glucose, Whole Blood 126(H) 74 - 99 mg/dL LAB HEMATOLOGY METHOD 04/08/2022 7:13 AM EST [facility] Ionized Calcium, Whole Blood 4.7 4.6 - 5.1 mg/dL LAB HEMATOLOGY METHOD 04/08/2022 7:13 AM EST [facility] Lactate, Arterial, Whole Blood 1.1 0.5 - 1.6 mmol/L LAB HEMATOLOGY METHOD 04/08/2022 7:13 AM EST [facility] Blood Arterial blood specimen / Unknown Arterial Puncture / Unknown 04/08/2022 6:54 AM EST 04/08/2022 7:09 AM EST Greg Juarez MD LAB BLOOD ORDERABLES Final R esult [facility] [address] [place] [address] * (ABNORMAL) POCT glucose meter (04/08/2022 6:06 AM EST) [facility] POCT Glucose 122(H) 74 - 99 mg/dL 04/08/2022 6:10 AM EST [facility] Comment:Accuracy of a glucos e result obtained from a capillary whole blood specimen relies upon adequate, non-compromised capillary blood flow. If the capillary glucose result is not consistent with the patient's clinical signs and symptoms, glucose testing should be repeated with either an arterial or venous sample on the glucometer or sent to the main labortory for testing. Comment 04/08/2022 6:10 AM EST [facility] Water Mangle Tender ID Efrain Bains 04/08/2022 6:10 AM EST [facility] Device ID [id number] 04/08/2022 6:10 AM EST [facility] Specimen Type POC Arterial 04/08/2022 6:10 AM EST [facility] Blood Arterial blood specimen / Unknown 04/08/2022 6:06 AM EST 04/08/2022 6:10 AM EST Greg Juarez MD LAB POINT OF CARE TE ST DOCKED DEVICE UNSOLICITED RESULTS Final Result [facility] [address] [place] [address] * XR Chest 1 View (04/08/2022 5:08 AM EST) Anatomical Region Laterality Modality Chest Digital Radiogra phy Impressions 04/08/2022 1:34 PM EST Interval removal of [place] catheter. Increased atelectasis in the right lower lobe. CRITICAL RESULT: ?? No. COMMUNICATION: Per this written report. Dictated by Nelson Juarez MD on 04/08/2022 1:31 PM Signed by Nelson Juarez MD on 04/08/2022 1:34 PM Narrative 04/08/2022 1:34 PM EST Exam/Procedure: XR CHEST 1 VIEW ordered by GREG JUAREZ, [id number] CLINICAL INDICATION: post operative CABG TECHNIQUE: XR CHEST 1 VIEW COMPARISON: April 07, 2022 FINDINGS: Interval removal of [place] catheter. Remaining support hardware is stable including right internal jugular introducer sheath catheter. Increased atelectasis in the right middle lobe. Procedure Note Nelson Juarez MD - 04/08/2022 Exam/Procedure: XR CHEST 1 VIEW ordered by GREG JUAREZ, [id number] CLINICAL INDICATION: post operative CABG TECHNIQUE: XR CHEST 1 VIEW COMPARISON: April 07, 2022 FINDINGS: Interval removal of [place] catheter. Remaining support hardware isstable including right internal jugular introducer sheath catheter.Increased atelectasis in the right middle lobe. IMPRESSION: Interval removal of [place] catheter. Increased atelectasis in the right lower lobe. CRITICAL RESULT: No. COMMUNICATION: Per this written report. Dictated by Nelson Juarez MD on 04/08/2022 1:31 PM Signed by Nelson Juarez MD on 04/08/2022 1:34 PM us Greg Juarez MD IMG XR PROCEDURES Final Resu lt * (ABNORMAL) POCT glucose meter (04/08/2022 1:36 AM EST) POCT Glucose 124(H) 74 - 99 mg/dL 04/08/2022 1:40 AM EST [facility] Comment:Accuracy of a glucos e result obtained from a capillary whole blood specimen relies upon adequate, non-compromised capillary blood flow. If the capillary glucose result is not consistent with the patient's clinical signs and symptoms, glucose testing should be repeated with either an arterial or venous sample on the glucometer or sent to the main labortory for testing. Comment 04/08/2022 1:40 AM EST [facility] Water Mangle Tender ID [id number] 04/08/2022 1:40 AM EST [facility] Device ID [id number] 04/08/2022 1:40 AM EST [facility] Specimen Type POC Arterial 04/08/2022 1:40 AM EST [facility] Blood Arterial blood specimen / Unknown 04/08/2022 1:36 AM EST 04/08/2022 1:40 AM EST us Greg Juarez MD LAB POINT OF CARE TE ST DOCKED DEVICE UNSOLICITED RESULTS Final Result Performing Organization Address City/State/[facility] Co de Phone Number [facility] [address] [place] [id number] * (ABNORMAL) CBC W/O Differential (04/08/2022 1:34 AM EST) WBC Count 14.08(H) 3.70 - 10.30 10*3/uL LAB HEMATOLOGY METHOD 04/08/2022 1:58 AM EST [facility] RBC Count 3.09(L) 3.90 - 5.20 10*6/uL LAB HEMATOLOGY METHOD 04/08/2022 1:58 AM [facility] HGB 8.7(L) 11.2 - 15.7 g/dL LAB HEMATOLOGY METHOD 04/08/2022 1:58 AM EST [facility] HCT 27.1(L) 34.0 - 45.0 % LAB HEMATOLOGY METHOD 04/08/2022 1:58 AM EST [facility] Platelet Count 179 155 - 369 10*3/uL LAB HEMATOLOGY METHOD 04/08/2022 1:58 AM EST [facility] MCV 88 79 - 98 fL LAB HEMATOLOGY METHOD 04/08/2022 1:58 AM EST [facility] MCH 28.2 26.0 - 32.0 pg LAB HEMATOLOGY METHOD 04/08/2022 1:58 AM EST [facility] MCHC 32.1 30.7 - 35.5 g/dL LAB HEMATOLOGY METHOD 04/08/2022 1:58 AM EST [facility] RDW 15.4(H) 11.5 - 14.5 % LAB HEMATOLOGY METHOD 04/08/2022 1:58 AM EST [facility] MPV 10.6 8.8 - 12.5 fL LAB HEMATOLOGY METHOD 04/08/2022 1:58 AM EST [facility] nRBC 0.0 <=0.0 per 100 WBCs LAB HEMATOLOGY METHOD 04/08/2022 1:58 AM EST [facility] Blood Venous blood specimen / Unknown Venipuncture / Unknown 04/08/2022 1:34 AM EST 04/08/2022 1:47 AM EST Greg Juarez MD LAB BLOOD ORDERABLES Final R esult Performing Organization Address City/[facility]/ZIP Co de Phone Number [facility] [address] [place] [address] * Phosphorus (04/08/2022 1:34 AM EST) Phosphorus, Plasma 4.1 2.5 - 4.5 mg/dL 04/08/2022 2:29 AM EST [facility] Blood Venous blood specimen / Unknown Venipuncture / Unknown 04/08/2022 1:34 AM EST 04/08/2022 1:47 AM EST Greg Juarez MD LAB BLOOD ORDERABLES Final R esult Performing Organization Address City/[facility]/ZIP Co de Phone Number [facility] [address] [place] [address] * (ABNORMAL) Magnesium (04/08/2022 1:34 AM EST) Magnesium, Plasma 2.8(H) 1.9 - 2.4 mg/dL 04/08/2022 2:29 AM EST [facility] Blood Venous blood specimen / Unknown Venipuncture / Unknown 04/08/2022 1:34 AM EST 04/08/2022 1:47 AM EST Greg Juarez MD LAB BLOOD ORDERABLES Final R esult [facility] [address] [place] [address] * (ABNORMAL) Basic metabolic panel (04/08/2022 1:34 AM EST) Glucose, Plasma 140(H) 74 - 99 mg/dL 04/08/2022 2:29 AM EST [facility] BUN, Plasma 41(H) 8 - 23 mg/dL 04/08/2022 2:29 AM EST [facility] Creatinine, Plasma 2.04(H) 0.60 - 1.10 mg/dL 04/08/2022 2:29 AM EST [facility] BUN/Creatinine Ratio 20 04/08/2022 2:29 AM EST [facility] Sodium, Plasma 140 136 - 145 mmol/L 04/08/2022 2:29 AM EST [facility] Potassium, Plasma 4.4 3.7 - 4.8 mmol/L 04/08/2022 2:29 AM EST [facility] Comment: Hemolyzed, result may be falsely increased. Reference range for Serum potassium is 0.2 to 0.5 mmol/L higher than Plasma range. Chloride, Plasma 104 97 - 107 mmol/L 04/08/2022 2:29 AM EST [facility] CO2, Plasma 25 22 - 29 mmol/L 04/08/2022 2:29 AM EST [facility] Anion Gap 11 6 - 16 mmol/L 04/08/2022 2:29 AM EST [facility] Total Calcium, Plasma 9.1 8.9 - 10.2 mg/dL 04/08/2022 2:29 AM EST [facility] eGFRcr 26.3 mL/min/1.7 3m*2 04/08/2022 2:29 AM EST [facility] Comment: Reported eGFRcr in mL/min/1.73m2 is based the CKD-EPI 2021 equation that does not use a race coefficient. Effective 09/29/21 our laboratory changed the eGFR calculation to the CKD-EPI 2021 equation from the previously reported eGFR, based on the MDRD equation. ??For comparisons between the two equations, please see laboratory website: ??[email or web address] Blood Venous blood specimen / Unknown Venipuncture / Unknown 04/08/2022 1:34 AM EST 04/08/2022 1:47 AM EST us Greg Juarez MD LAB BLOOD ORDERABLES Final R esult [facility] [address] [place] [address] * [place] CRITICAL CARE, ADDL 30 MIN (04/07/2022 11:24 PM EST) Narrative Shon Roque MD - 04/07/2022 11:24 PM EST Shon Roque MD ? 04/07/2022 11:26 PM Critical Care Performed by: Shon Roque MD Authorized by: Shon Roque MD Critical care provider statement: ??Critical care time (minutes): ??38 ??Critical care time was exclusive of: ??Separately billable procedures and treating other patients and teaching time ??Critical care was time spent personally by me on the following activities: ??Development of treatment plan with patient or surrogate, ordering and performing treatments and interventions, ordering and review of laboratory studies, ordering and review of radiographic studies, evaluation of patient's response to treatment, examination of patient and obtaining history from patient or surrogate ??I assumed subsequent critical care for this patient from a provider in my division, on the same day: yes ?Critical care statement: ??I saw and evaluated the patient with the resident/ fellow. I discussed the case with the resident/ fellow and agree with the findings and plan as documented. us Shon Roque MD IN CLINIC/BEDSIDE ORDERABLE S Final Result * [place] CRITICAL CARE, E/M 30-74 MINUTES (04/07/2022 1:53 PM EST) Narrative Maverick Vivas MD - 04/07/2022 1:53 PM EST Maverick Vivas MD ? 04/07/2022 ??3:57 PM Critical Care Performed by: Maverick Vivas MD Authorized by: Maverick Vivas MD Critical care provider statement: ??Critical care time (minutes): ??38 ??Critical care time was exclusive of: ??Separately billable procedures and treating other patients and teaching time ??Critical care was time spent personally by me on the following activities: ??Development of treatment plan with patient or surrogate, ordering and performing treatments and interventions, discussions with consultants, ordering and review of laboratory studies, discussions with primary provider, ordering and review of radiographic studies, evaluation of patient's response to treatment and examination of patient ??Critical care statement: ??I saw and evaluated the patient with the resident/ fellow. I discussed the case with the resident/ fellow and agree with the findings and plan as documented. Comments: ?? Impressive ileus without obstruction. Afib rvr. Received amio bolus x 2 and digoxin. Worsening hypoxemia. Will watch for now though we are concerned for possible re-intubation us Maverick Vivas MD IN CLINIC/BEDSIDE ORDERABL ES Final Result * CT Abdomen Pelvis wo IV Contrast (04/07/2022 1:20 PM EST) Anatomical Region Laterality Modality Abdomen, Pelvis Computed Tomogra phy Impressions 04/07/2022 1:38 PM EST Ileus. No evidence for bowel obstruction. CRITICAL RESULT: ?? No. COMMUNICATION: Per this written report. Dictated by Addison Carlisle MD on 04/07/2022 1:27 PM Signed by Addison Carlisle MD on 04/07/2022 1:38 PM Narrative 04/07/2022 1:38 PM EST Exam/Procedure: CT ABDOMEN PELVIS WO IV CONTRAST ordered by GREG JUAREZ, [id number] CLINICAL INDICATION: Bowel obstruction suspected TECHNIQUE: Multiple axial CT images were obtained from lung bases through pubic symphysis without the administration of IV contrast. Reformatted images in the coronal and sagittal planes were generated from the axial data set to facilitate diagnostic accuracy. Total DLP (Dose-Length Product): 476.27 mGy.cm. Please note: The reported value represents the total of one or more individual components during the CT acquisition on this date and at this time, and as such, the same value may appear in more than one CT report depending on the interpreting/reporting physicians. COMPARISON: 07/10/2015 CT abdomen and pelvis FINDINGS: Lower Chest: Cardiomegaly. Coronary artery disease. Mitral annular calcifications. Volume pneumomediastinum. Trace right basilar pneumothorax. Bilateral chest tubes and mediastinal drain. Basilar atelectasis. Epicardial pacing wires. Analysis of the abdominopelvic viscera is limited by the absence of intravenous contrast material. Solid Abdominal Organs: No suspicious focal hepatic findings. Prior cholecystectomy. Mild extrahepatic biliary duct dilatation, likely postcholecystectomy ectasia. Unremarkable pancreas and spleen. Unchanged thickening of the lateral limb of the right adrenal gland. Interval increase in size of left adrenal adenoma measuring 3.4 x 3.8 cm, previously 2.0 x 3.4 cm. Atrophic right kidney. Normal size left kidney without suspicious focal contour deformity. No ureteral calculi or secondary signs of urinary tract obstruction. GI Tract/Mesentery/Peritoneum: Enteric tube tip in the stomach. Mild gaseous gastric distention. Colonic diverticulosis without acute diverticulitis. Mild colonic distention, most marked in the transverse segment. Mild gas-filled distended small bowel. No transition point to suggest high-grade bowel obstruction. Imaging findings are most consistent with ileus. No convincing pneumoperitoneum, pneumatosis, or abdominal abscess. Pelvic Viscera: A urinary catheter is in place and the bladder is decompressed. No suspicious pelvic mass or fluid collection. Lymph Nodes/Vasculature: Atherosclerotic abdominal aorta with dilatation in its infrarenal segment measuring up to approximately 3 cm. No suspicious lymph nodes.. Free Fluid:None. Musculoskeletal and Body Wall:Postoperative changes in the midline ventral abdominal wall. Body wall edema. Small volume gas within the soft tissues of the left flank, nonspecific. Right rib fractures. Procedure Note Addison Carlisle MD - 04/07/2022 Exam/Procedure: CT ABDOMEN PELVIS WO IV CONTRAST ordered by GREG WALTERS, [id number] CLINICAL INDICATION: Bowel obstruction suspected TECHNIQUE: Multiple axial CT images were obtained from lung bases through pubicsymphysis without the administration of IV contrast. Reformatted images inthe coronal and sagittal planes were generated from the axial data set tofacilitate diagnostic accuracy. Total DLP (Dose-Length Product): 476.27 mGy.cm. Please note: The reportedvalue represents the total of one or more individual components during theCT acquisition on this date and at this time, and as such, the same valuemay appear in more than one CT report depending on theinterpreting/reporting physicians. COMPARISON: 07/10/2015 CT abdomen and pelvis FINDINGS: Lower Chest: Cardiomegaly. Coronary artery disease. Mitral annularcalcifications. Volume pneumomediastinum. Trace right basilarpneumothorax. Bilateral chest tubes and mediastinal drain. Basilaratelectasis. Epicardial pacing wires. Analysis of the abdominopelvic viscera is limited by the absence ofintravenous contrast material. Solid Abdominal Organs: No suspicious focal hepatic findings. Priorcholecystectomy. Mild extrahepatic biliary duct dilatation, likelypostcholecystectomy ectasia. Unremarkable pancreas and spleen. Unchangedthickening of the lateral limb of the right adrenal gland. Intervalincrease in size of left adrenal adenoma measuring 3.4 x 3.8 cm,previously 2.0 x 3.4 cm. Atrophic right kidney. Normal size left kidneywithout suspicious focal contour deformity. No ureteral calculi orsecondary signs of urinary tract obstruction. GI Tract/Mesentery/Peritoneum: Enteric tube tip in the stomach. Mildgaseous gastric distention. Colonic diverticulosis without acutediverticulitis. Mild colonic distention, most marked in the transversesegment. Mild gas-filled distended small bowel. No transition point tosuggest high-grade bowel obstruction. Imaging findings are most consistentwith ileus. No convincing pneumoperitoneum, pneumatosis, or abdominalabscess. Pelvic Viscera: A urinary catheter is in place and the bladder isdecompressed. No suspicious pelvic mass or fluid collection. Lymph Nodes/Vasculature: Atherosclerotic abdominal aorta with dilatationin its infrarenal segment measuring up to approximately 3 cm. Nosuspicious lymph nodes.. Free Fluid:None. Musculoskeletal and Body Wall:Postoperative changes in the midline ventralabdominal wall. Body wall edema. Small volume gas within the soft tissuesof the left flank, nonspecific. Right rib fractures. IMPRESSION: Ileus. No evidence for bowel obstruction. CRITICAL RESULT: No. COMMUNICATION: Per this written report. Dictated by Addison Carlisle MD on 04/07/2022 1:27 PM Signed by Addison Carlisle MD on 04/07/2022 1:38 PM Greg Juarez MD IMG CT PROCEDURES Final Resu lt * (ABNORMAL) Blood gas panel, arterial (04/07/2022 12:07 PM EST) pH, Arterial 7.34 7.31 - 7.42 LAB HEMATOLOGY METHOD 04/07/2022 12:24 PM EST [facility] pCO2, Arterial 47(H) 32 - 45 mmHg LAB HEMATOLOGY METHOD 04/07/2022 12:24 PM EST [facility] pO2, Arterial 90 >80 mmHg LAB HEMATOLOGY METHOD 04/07/2022 12:24 PM EST [facility] SO2, Measured, Arterial 97.5 94 - 98 % LAB HEMATOLOGY METHOD 04/07/2022 12:24 PM EST [facility] Base Excess, Arterial -0.8 -2 - 3 mmol/L LAB HEMATOLOGY METHOD 04/07/2022 12:24 PM EST [facility] Bicarbonate, Calculated, Arterial 25 22 - 26 mmol/L LAB HEMATOLOGY METHOD 04/07/2022 12:24 PM EST [facility] Hematocrit, Whole Blood 27.8(L) 34.0 - 45.0 % LAB HEMATOLOGY METHOD 04/07/2022 12:24 PM EST [facility] Sodium, Whole Blood 139 136 - 145 mmol/L LAB HEMATOLOGY METHOD 04/07/2022 12:24 PM EST [facility] Potassium, Whole Blood 4.8 3.6 - 4.9 mmol/L LAB HEMATOLOGY METHOD 04/07/2022 12:24 PM EST [facility] Chloride, Whole Blood 105 97 - 107 mmol/L LAB HEMATOLOGY METHOD 04/07/2022 12:24 PM EST [facility] Glucose, Whole Blood 141(H) 74 - 99 mg/dL LAB HEMATOLOGY METHOD 04/07/2022 12:24 PM EST [facility] Ionized Calcium, Whole Blood 4.7 4.6 - 5.1 mg/dL LAB HEMATOLOGY METHOD 04/07/2022 12:24 PM EST [facility] Lactate, Arterial, Whole Blood 1.4 0.5 - 1.6 mmol/L LAB HEMATOLOGY METHOD 04/07/2022 12:24 PM EST [facility] Blood Arterial blood specimen / Unknown Arterial Puncture / Unknown 04/07/2022 12:07 PM EST 04/07/2022 12:22 PM EST us Greg Juarez MD LAB BLOOD ORDERABLES Final R esult [facility] [address] [place] [phone] * XR Abdomen 1 View (04/07/2022 11:15 AM EST) Anatomical Region Laterality Modality Body Digital Radiogra phy Impressions 04/07/2022 3:17 PM EST The tip of the nasogastric tube is within the proximal stomach, consider advancement. CRITICAL RESULT: ?? No. COMMUNICATION: Per this written report. By electronically signing this report, I, the attending physician, attest that I have personally reviewed the images/data for the above examination(s) and agree with the final edited report. Dictated by Mike Crabtree M.D. on 04/07/2022 2:40 PM Signed by Kilo Cordon MD on 04/07/2022 3:17 PM Narrative 04/07/2022 3:17 PM EST Exam/Procedure: XR ABDOMEN 1 VIEW ordered by RGEG JUAREZ, [id number] CLINICAL INDICATION: NGT TECHNIQUE: Supine radiograph of the abdomen. COMPARISON: Abdominal radiograph from 3 hours prior FINDINGS: Limited [id number] abdominal radiograph for the purpose of locating tube position. The tip of the nasogastric tube is within the proximal stomach. The side port is not visualized. Procedure Note Kilo Cordon MD - 04/07/2022 Exam/Procedure: XR ABDOMEN 1 VIEW ordered by GREG JUAREZ, [id number] CLINICAL INDICATION: NGT TECHNIQUE: Supine radiograph of the abdomen. COMPARISON: Abdominal radiograph from 3 hours prior FINDINGS: Limited [id number] abdominal radiograph for the purpose of locatingtube position. The tip of the nasogastric tube is within the proximal stomach. The sideport is not visualized. IMPRESSION: The tip of the nasogastric tube is within the proximal stomach, consideradvancement. CRITICAL RESULT: No. COMMUNICATION: Per this written report. By electronically signing this report, I, the attending physician, attestthat I have personally reviewed the images/data for the aboveexamination(s) and agree with the final edited report. Dictated by Mike Crabtree M.D. on 04/07/2022 2:40 PM Signed by Kilo Cordon MD on 04/07/2022 3:17 PM us Greg Juarez MD IMG XR PROCEDURES Final Resu lt * XR Abdomen 1 View (04/07/2022 7:45 AM EST) Anatomical Region Laterality Modality Body Digital Radiogra phy Impressions 04/07/2022 11:26 AM EST Moderate gaseous distention of the stomach, Diffusely dilated large and small bowel, may reflect ileus vs low grade obstruction, continuos follow up imaging and clinical correlation is suggested. CRITICAL RESULT: ?? No. COMMUNICATION: Per this written report. By electronically signing this report, I, the attending physician, attest that I have personally reviewed the images/data for the above examination(s) and agree with the final edited report. Dictated by Mike Crabtree M.D. on 04/07/2022 9:05 AM Signed by Kilo Cordon MD on 04/07/2022 11:26 AM Narrative 04/07/2022 11:26 AM EST Exam/Procedure: XR ABDOMEN 1 VIEW ordered by GREG JUAREZ, [id number] CLINICAL INDICATION: nausea and abdominal distension TECHNIQUE: XR ABDOMEN 1 VIEW COMPARISON: None. FINDINGS: Moderate gaseous distention of the stomach. Gas is present within dilated ??and non dilated large and small bowel. ??Moderate amount of fecal material in the right colon. No definite pneumoperitoneum on this supine radiograph. Right greater than left small pleural effusions with chest tubes in situ. A temperature probe tip overlies the bladder. Procedure Note Kilo Cordon MD - 04/07/2022 Exam/Procedure: XR ABDOMEN 1 VIEW ordered by GREG JUAREZ [id number] CLINICAL INDICATION: nausea and abdominal distension TECHNIQUE: XR ABDOMEN 1 VIEW COMPARISON: None. FINDINGS: Moderate gaseous distention of the stomach. Gas is present within dilatedand non dilated large and small bowel. Moderate amount of fecal materialin the right colon. No definite pneumoperitoneum on this supineradiograph. Right greater than left small pleural effusions with chesttubes in situ. A temperature probe tip overlies the bladder. IMPRESSION: Moderate gaseous distention of the stomach, Diffusely dilated large andsmall bowel, may reflect ileus vs low grade obstruction, continuos followup imaging and clinical correlation is suggested. CRITICAL RESULT: No. COMMUNICATION: Per this written report. By electronically signing this report, I, the attending physician, attamrit I have personally reviewed the images/data for the aboveexamination(s) and agree with the final edited report. Dictated by Mike Crabtree M.D. on 04/07/2022 9:05 AM Signed by Kilo Cordon MD on 04/07/2022 11:26 AM Greg Juarez MD IMG XR PROCEDURES Final Resu lt * (ABNORMAL) Phosphorus (04/07/2022 6:37 AM EST) Phosphorus, Plasma 5.2(H) 2.5 - 4.5 mg/dL 04/07/2022 7:23 AM EST [facility] Blood Venous blood specimen / Unknown Venipuncture / Unknown 04/07/2022 6:37 AM EST 04/07/2022 6:54 AM EST Greg Juarez MD LAB BLOOD ORDERABLES Final R esult [facility] [address] [place] [id number] * (ABNORMAL) Magnesium (04/07/2022 6:37 AM EST) Magnesium, Plasma 3.0(H) 1.9 - 2.4 mg/dL 04/07/2022 7:23 AM EST [facility] Blood Venous blood specimen / Unknown Venipuncture / Unknown 04/07/2022 6:37 AM EST 04/07/2022 6:54 AM EST us Greg Juarez MD LAB BLOOD ORDERABLES Final R esult [facility] [address] [place] [address] * (ABNORMAL) Blood gas panel, arterial (04/07/2022 6:37 AM EST) pH, Arterial 7.34 7.31 - 7.42 LAB HEMATOLOGY METHOD 04/07/2022 6:53 AM EST [facility] pCO2, Arterial 46(H) 32 - 45 mmHg LAB HEMATOLOGY METHOD 04/07/2022 6:53 AM EST [facility] pO2, Arterial 69(L) >80 mmHg LAB HEMATOLOGY METHOD 04/07/2022 6:53 AM EST [facility] SO2, Measured, Arterial 93.9(L) 94 - 98 % LAB HEMATOLOGY METHOD 04/07/2022 6:53 AM EST [facility] Base Excess, Arterial -1.3 -2 - 3 mmol/L LAB HEMATOLOGY METHOD 04/07/2022 6:53 AM EST [facility] Bicarbonate, Calculated, Arterial 25 22 - 26 mmol/L LAB HEMATOLOGY METHOD 04/07/2022 6:53 AM EST [facility] Hematocrit, Whole Blood 26.4(L) 34.0 - 45.0 % LAB HEMATOLOGY METHOD 04/07/2022 6:53 AM EST [facility] Sodium, Whole Blood 137 136 - 145 mmol/L LAB HEMATOLOGY METHOD 04/07/2022 6:53 AM EST [facility] Potassium, Whole Blood 4.7 3.6 - 4.9 mmol/L LAB HEMATOLOGY METHOD 04/07/2022 6:53 AM EST [facility] Chloride, Whole Blood 105 97 - 107 mmol/L LAB HEMATOLOGY METHOD 04/07/2022 6:53 AM EST [facility] Glucose, Whole Blood 164(H) 74 - 99 mg/dL LAB HEMATOLOGY METHOD 04/07/2022 6:53 AM EST [facility] Ionized Calcium, Whole Blood 4.3(L) 4.6 - 5.1 mg/dL LAB HEMATOLOGY METHOD 04/07/2022 6:53 AM EST [facility] Lactate, Arterial, Whole Blood 1.2 0.5 - 1.6 mmol/L LAB HEMATOLOGY METHOD 04/07/2022 6:53 AM EST [facility] Blood Arterial blood specimen / Unknown Arterial Puncture / Unknown 04/07/2022 6:37 AM EST 04/07/2022 6:52 AM EST us Greg Juarez MD LAB BLOOD ORDERABLES Final R esult [facility] [address] [place] [address] * XR Chest 1 View (04/07/2022 6:17 AM EST) Anatomical Region Laterality Modality Chest Digital Radiogra phy Impressions 04/07/2022 8:22 AM EST Mild interstitial edema. Small pleural effusions. Trace of left basal pneumothorax in the presence of chest tube. CRITICAL RESULT: ?? No. COMMUNICATION: Per this written report. Dictated by Hailey Tran MD on 04/07/2022 8:21 AM Signed by Hailey Tran MD on 04/07/2022 8:22 AM Narrative 04/07/2022 8:22 AM EST Exam/Procedure: XR CHEST 1 VIEW ordered by LONDON REN, [id number] CLINICAL INDICATION: Post-Op Cardiac Surgery TECHNIQUE: XR CHEST 1 VIEW COMPARISON: 04/06/2022 FINDINGS: Endotracheal tube is removed. Stable position of support hardware. No change in cardiac enlargement. Mild interstitial edema is similar to the prior. Trace of left basal pneumothorax. Small bilateral pleural effusions. Procedure Note Hailey Tran MD - 04/07/2022 Exam/Procedure: XR CHEST 1 VIEW ordered by LONDON REN, [id number] CLINICAL INDICATION: Post-Op Cardiac Surgery TECHNIQUE: XR CHEST 1 VIEW COMPARISON: 04/06/2022 FINDINGS: Endotracheal tube is removed. Stable position of support hardware. Nochange in cardiac enlargement. Mild interstitial edema is similar to theprior. Trace of left basal pneumothorax. Small bilateral pleuraleffusions. IMPRESSION: Mild interstitial edema. Small pleural effusions. Trace of left basalpneumothorax in the presence of chest tube. CRITICAL RESULT: No. COMMUNICATION: Per this written report. Dictated by Hailey Tran MD on 04/07/2022 8:21 AM Signed by Hailey Tran MD on 04/07/2022 8:22 AM us [place] [facility] IMG XR PROCEDURES Final Res ult * ECG Adult (04/07/2022 5:46 AM EST) EKG DIAGNOSIS CLASS Abnormal MUSE ECG Ventricular Rate 137 BPM MUSE ECG QRSD Interval 92 ms MUSE ECG QT Interval 264 ms MUSE ECG QTC Interval 398 ms MUSE ECG R [place] -2 degrees MUSE ECG T Wave [place] 113 degrees MUSE ECG Diagnosis Atrial fibrillation MUSE ECG Diagnosis with rapid ventricular response MUSE ECG Diagnosis Inferior-digital retoucher ior infarct MUSE ECG Diagnosis , possibly acute MUSE ECG Diagnosis T wave abnormality, consider lateral ischemia MUSE ECG Diagnosis ACUTE AK / STEMI MUSE ECG Diagnosis Consider right ventricular involvement in acute inferior infarct MUSE ECG Diagnosis Abnormal ECG MUSE ECG Diagnosis Confirmed by Carl Dacosta ([id number]) on 04/08/2022 11:07:11 AM MUSE ECG 04/07/2022 5:46 AM EST 04/08/2022 11:07 AM EST us Greg Juarez MD ECG ORDERABLES Final Result MUSE ECG * (ABNORMAL) Blood gas panel, arterial (04/07/2022 3:31 AM EST) pH, Arterial 7.31 7.31 - 7.42 LAB HEMATOLOGY METHOD 04/07/2022 3:46 AM EST [facility] pCO2, Arterial 49(H) 32 - 45 mmHg LAB HEMATOLOGY METHOD 04/07/2022 3:46 AM EST [facility] pO2, Arterial 65(L) >80 mmHg LAB HEMATOLOGY METHOD 04/07/2022 3:46 AM EST [facility] SO2, Measured, Arterial 91.7(L) 94 - 98 % LAB HEMATOLOGY METHOD 04/07/2022 3:46 AM EST [facility] Base Excess, Arterial -1.7 -2 - 3 mmol/L LAB HEMATOLOGY METHOD 04/07/2022 3:46 AM EST [facility] Bicarbonate, Calculated, Arterial 25 22 - 26 mmol/L LAB HEMATOLOGY METHOD 04/07/2022 3:46 AM EST [facility] Hematocrit, Whole Blood 28.0(L) 34.0 - 45.0 % LAB HEMATOLOGY METHOD 04/07/2022 3:46 AM EST [facility] Sodium, Whole Blood 138 136 - 145 mmol/L LAB HEMATOLOGY METHOD 04/07/2022 3:46 AM EST [facility] Potassium, Whole Blood 4.8 3.6 - 4.9 mmol/L LAB HEMATOLOGY METHOD 04/07/2022 3:46 AM EST [facility] Chloride, Whole Blood 106 97 - 107 mmol/L LAB HEMATOLOGY METHOD 04/07/2022 3:46 AM EST [facility] Glucose, Whole Blood 135(H) 74 - 99 mg/dL LAB HEMATOLOGY METHOD 04/07/2022 3:46 AM EST [facility] Ionized Calcium, Whole Blood 4.7 4.6 - 5.1 mg/dL LAB HEMATOLOGY METHOD 04/07/2022 3:46 AM EST [facility] Lactate, Arterial, Whole Blood 1.0 0.5 - 1.6 mmol/L LAB HEMATOLOGY METHOD 04/07/2022 3:46 AM EST [facility] Blood Arterial blood specimen / Unknown Arterial Puncture / Unknown 04/07/2022 3:31 AM EST 04/07/2022 3:44 AM EST Greg Juarez MD LAB BLOOD ORDERABLES Final R esult Performing Organization Address City/[facility]/ZIP Co de Phone Number [facility] [address] [place] [address] * (ABNORMAL) Phosphorus (04/07/2022 3:31 AM EST) Phosphorus, Plasma 4.9(H) 2.5 - 4.5 mg/dL 04/07/2022 4:49 AM EST [facility] Blood Venous blood specimen / Unknown Venipuncture / Unknown 04/07/2022 3:31 AM EST 04/07/2022 3:47 AM EST Greg Juarez MD LAB BLOOD ORDERABLES Final R esult Performing Organization Address City/[facility]/ZIP Co de Phone Number [facility] [address] [place] [address] * (ABNORMAL) Magnesium (04/07/2022 3:31 AM EST) Magnesium, Plasma 3.5(H) 1.9 - 2.4 mg/dL 04/07/2022 4:49 AM EST [facility] Blood Venous blood specimen / Unknown Venipuncture / Unknown 04/07/2022 3:31 AM EST 04/07/2022 3:47 AM EST Greg Juarez MD LAB BLOOD ORDERABLES Final R esult [facility] [address] [place] [address] * (ABNORMAL) Basic metabolic panel (04/07/2022 3:31 AM EST) Glucose, Plasma 138(H) 74 - 99 mg/dL 04/07/2022 4:49 AM EST [facility] BUN, Plasma 33(H) 8 - 23 mg/dL 04/07/2022 4:49 AM EST [facility] Creatinine, Plasma 1.97(H) 0.60 - 1.10 mg/dL 04/07/2022 4:49 AM EST [facility] BUN/Creatinine Ratio 17 04/07/2022 4:49 AM EST [facility] Sodium, Plasma 141 136 - 145 mmol/L 04/07/2022 4:49 AM EST [facility] Potassium, Plasma 4.7 3.7 - 4.8 mmol/L 04/07/2022 4:49 AM EST [facility] Comment:Reference range for Serum potassium is 0.2 to 0.5 mmol/L higher than Plasma range. Chloride, Plasma 107 97 - 107 mmol/L 04/07/2022 4:49 AM EST [facility] CO2, Plasma 22 22 - 29 mmol/L 04/07/2022 4:49 AM EST [facility] Anion Gap 12 6 - 16 mmol/L 04/07/2022 4:49 AM EST [facility] Total Calcium, Plasma 8.9 8.9 - 10.2 mg/dL 04/07/2022 4:49 AM EST [facility] eGFRcr 27.4 mL/min/1.7 3m*2 04/07/2022 4:49 AM EST [facility] Comment: Reported eGFRcr in mL/min/1.73m2 is based the CKD-EPI 2021 equation that does not use a race coefficient. Effective 09/29/21 our laboratory changed the eGFR calculation to the CKD-EPI 2021 equation from the previously reported eGFR, based on the MDRD equation. ??For comparisons between the two equations, please see laboratory website: ??[email or web address] Blood Venous blood specimen / Unknown Venipuncture / Unknown 04/07/2022 3:31 AM EST 04/07/2022 3:47 AM EST Greg Juarez MD LAB BLOOD ORDERABLES Final R [facility] Performing Organization Address [facility] Co de Phone Number [facility] [address] [place] [address] * (ABNORMAL) Magnesium (04/07/2022 12:22 AM EST) Magnesium, Plasma 3.1(H) 1.9 - 2.4 mg/dL 04/07/2022 3:32 AM EST [facility] Blood Venous blood specimen / Unknown Venipuncture / Unknown 04/07/2022 12:22 AM EST 04/07/2022 12:39 AM EST Greg Juarez MD LAB BLOOD ORDERABLES Final R [facility] Performing Organization Address [facility] de Phone Number [facility] [address] [place] [address] * (ABNORMAL) Basic metabolic panel (04/07/2022 12:22 AM EST) Glucose, Plasma 132(H) 74 - 99 mg/dL 04/07/2022 1:08 AM EST [facility] BUN, Plasma 31(H) 8 - 23 mg/dL 04/07/2022 1:08 AM EST [facility] Creatinine, Plasma 1.86(H) 0.60 - 1.10 mg/dL 04/07/2022 1:08 AM EST [facility] BUN/Creatinine Ratio 17 04/07/2022 1:08 AM EST [facility] Sodium, Plasma 136 136 - 145 mmol/L 04/07/2022 1:08 AM EST [facility] Potassium, Plasma 4.6 3.7 - 4.8 mmol/L 04/07/2022 1:08 AM EST [facility] Comment: Hemolyzed, result may be falsely increased. Reference range for Serum potassium is 0.2 to 0.5 mmol/L higher than Plasma range. Chloride, Plasma 105 97 - 107 mmol/L 04/07/2022 1:08 AM EST [facility] CO2, Plasma 21(L) 22 - 29 mmol/L 04/07/2022 1:08 AM EST [facility] Anion Gap 10 6 - 16 mmol/L 04/07/2022 1:08 AM EST [facility] Total Calcium, Plasma 8.6(L) 8.9 - 10.2 mg/dL 04/07/2022 1:08 AM EST [facility] eGFRcr 29.4 mL/min/1.7 3m*2 04/07/2022 1:08 AM EST [facility] Comment: Reported eGFRcr in mL/min/1.73m2 is based the CKD-EPI 2021 equation that does not use a race coefficient. Effective 09/29/21 our laboratory changed the eGFR calculation to the CKD-EPI 2021 equation from the previously reported eGFR, based on the MDRD equation. ??For comparisons between the two equations, please see laboratory website: ??[email or web address] Blood Venous blood specimen / Unknown Venipuncture / Unknown 04/07/2022 12:22 AM EST 04/07/2022 12:39 AM EST us [place] MARIANO LAB BLOOD ORDERABLES Final Result [facility] [address] [place] [address] * (ABNORMAL) CBC (04/07/2022 12:22 AM EST) WBC Count 15.29(H) 3.70 - 10.30 10*3/uL LAB HEMATOLOGY METHOD 04/07/2022 12:50 AM EST [facility] RBC Count 3.23(L) 3.90 - 5.20 10*6/uL LAB HEMATOLOGY METHOD 04/07/2022 12:50 AM EST [facility] HGB 8.9(L) 11.2 - 15.7 g/dL LAB HEMATOLOGY METHOD 04/07/2022 12:50 AM EST [facility] HCT 28.7(L) 34.0 - 45.0 % LAB HEMATOLOGY METHOD 04/07/2022 12:50 AM EST [facility] Platelet Count 188 155 - 369 10*3/uL LAB HEMATOLOGY METHOD 04/07/2022 12:50 AM EST [facility] MCV 89 79 - 98 fL LAB HEMATOLOGY METHOD 04/07/2022 12:50 AM EST [facility] MCH 27.6 26.0 - 32.0 pg LAB HEMATOLOGY METHOD 04/07/2022 12:50 AM EST [facility] MCHC 31.0 30.7 - 35.5 g/dL LAB HEMATOLOGY METHOD 04/07/2022 12:50 AM EST [facility] RDW 14.8(H) 11.5 - 14.5 % LAB HEMATOLOGY METHOD 04/07/2022 12:50 AM EST [facility] MPV 10.6 8.8 - 12.5 fL LAB HEMATOLOGY METHOD 04/07/2022 12:50 AM EST [facility] nRBC 0.0 <=0.0 per 100 WBCs LAB HEMATOLOGY METHOD 04/07/2022 12:50 AM EST [facility] Blood Venous blood specimen / Unknown Venipuncture / Unknown 04/07/2022 12:22 AM EST 04/07/2022 12:44 AM EST us [place] MARIANO LAB BLOOD ORDERABLES Final Result Performing Organization Address City/State/[facility] Co de Phone Number [facility] [address] [place] [phone] * (ABNORMAL) Blood gas panel, arterial (04/06/2022 11:13 PM EST) pH, Arterial 7.34 7.31 - 7.42 LAB HEMATOLOGY METHOD 04/06/2022 11:24 PM EST [facility] pCO2, Arterial 44 32 - 45 mmHg LAB HEMATOLOGY METHOD 04/06/2022 11:24 PM EST [facility] pO2, Arterial 65(L) >80 mmHg LAB HEMATOLOGY METHOD 04/06/2022 11:24 PM EST [facility] SO2, Measured, Arterial 92.5(L) 94 - 98 % LAB HEMATOLOGY METHOD 04/06/2022 11:24 PM EST [facility] Base Excess, Arterial -2.2(L) -2 - 3 mmol/L LAB HEMATOLOGY METHOD 04/06/2022 11:24 PM EST [facility] Bicarbonate, Calculated, Arterial 24 22 - 26 mmol/L LAB HEMATOLOGY METHOD 04/06/2022 11:24 PM EST [facility] Hematocrit, Whole Blood 27.5(L) 34.0 - 45.0 % LAB HEMATOLOGY METHOD 04/06/2022 11:24 PM EST [facility] Sodium, Whole Blood 137 136 - 145 mmol/L LAB HEMATOLOGY METHOD 04/06/2022 11:24 PM EST [facility] Potassium, Whole Blood 4.6 3.6 - 4.9 mmol/L LAB HEMATOLOGY METHOD 04/06/2022 11:24 PM EST [facility] Chloride, Whole Blood 108(H) 97 - 107 mmol/L LAB HEMATOLOGY METHOD 04/06/2022 11:24 PM EST [facility] Glucose, Whole Blood 130(H) 74 - 99 mg/dL LAB HEMATOLOGY METHOD 04/06/2022 11:24 PM EST [facility] Ionized Calcium, Whole Blood 4.4(L) 4.6 - 5.1 mg/dL LAB HEMATOLOGY METHOD 04/06/2022 11:24 PM EST [facility] Lactate, Arterial, Whole Blood 1.0 0.5 - 1.6 mmol/L LAB HEMATOLOGY METHOD 04/06/2022 11:24 PM EST [facility] Blood Arterial blood specimen / Unknown Arterial Puncture / Unknown 04/06/2022 11:13 PM EST 04/06/2022 11:20 PM EST us Greg Juarez MD LAB BLOOD ORDERABLES Final R esult [facility] [address] [place] [address] * ECG Adult (04/06/2022 11:07 PM EST) EKG DIAGNOSIS CLASS Abnormal MUSE ECG Ventricular Rate 91 BPM MUSE ECG Atrial Rate 91 BPM MUSE ECG [place] Interval 128 ms MUSE ECG QRSD Interval 90 ms MUSE ECG QT Interval 412 ms MUSE ECG QTC Interval 506 ms MUSE ECG P [place] 52 degrees MUSE ECG R [place] -11 degrees MUSE ECG T Wave [place] 85 degrees MUSE ECG Diagnosis Sinus rhythm MUSE ECG Diagnosis with MUSE ECG Diagnosis premature supraventricular complexes MUSE ECG Diagnosis Lateral infarct MUSE ECG Diagnosis , age undetermined MUSE ECG Diagnosis Inferior infarct MUSE ECG Diagnosis , age undetermined MUSE ECG Diagnosis Abnormal ECG MUSE ECG Diagnosis Confirmed by Carl Dacosta ([id number]) on 04/08/2022 10:56:31 AM MUSE ECG 04/06/2022 11:0 7 PM EST 04/08/2022 10:56 AM EST us Greg Juarez MD ECG ORDERABLES Final Result Performing Organization Address City/[facility]/ZIP Co de Phone Number MUSE ECG * (ABNORMAL) POCT glucose meter (04/06/2022 10:03 PM EST) POCT Glucose 136(H) 74 - 99 mg/dL 04/06/2022 10:05 PM EST [facility] Comment:Accuracy of a glucos e result obtained from a capillary whole blood specimen relies upon adequate, non-compromised capillary blood flow. If the capillary glucose result is not consistent with the patient's clinical signs and symptoms, glucose testing should be repeated with either an arterial or venous sample on the glucometer or sent to the main labortory for testing. Comment 04/06/2022 10:05 PM EST [facility] Water Mangle Tender ID [email or web address] Bains 04/06/2022 10:05 PM EST [facility] Device ID [id number] 04/06/2022 10:05 PM EST [facility] Specimen Type POC Arterial 04/06/2022 10:05 PM EST [facility] Blood Arterial blood specimen / Unknown 04/06/2022 10:03 PM EST 04/06/2022 10:05 PM EST Greg Juarez MD LAB POINT OF CARE TE ST DOCKED DEVICE UNSOLICITED RESULTS Final Result [facility] [address] [place] [address] * (ABNORMAL) POCT glucose meter (04/06/2022 5:42 PM EST) POCT Glucose 134(H) 74 - 99 mg/dL 04/06/2022 5:45 PM EST [facility] Comment:Accuracy of a glucos e result obtained from a capillary whole blood specimen relies upon adequate, non-compromised capillary blood flow. If the capillary glucose result is not consistent with the patient's clinical signs and symptoms, glucose testing should be repeated with either an arterial or venous sample on the glucometer or sent to the main labortory for testing. Comment 04/06/2022 5:45 PM EST [facility] Water Mangle Tender ID Sheela Sabillon 04/06/2022 5:45 PM EST [facility] Device ID [id number] 04/06/2022 5:45 PM EST [facility] Specimen Type POC Arterial 04/06/2022 5:45 PM EST [facility] Blood Arterial blood specimen / Unknown 04/06/2022 5:42 PM EST 04/06/2022 5:45 PM EST Greg Juarez MD LAB POINT OF CARE TE ST DOCKED DEVICE UNSOLICITED RESULTS Final Result Performing Organization Address City/State/[facility] Co de Phone Number [facility] [address] [place] [address] * [place] CRITICAL CARE, E/M 30-74 MINUTES (04/06/2022 2:51 PM EST) Narrative Maverick Vivas MD - 04/06/2022 2:51 PM EST Maverick Vivas MD ? 04/06/2022 ??4:11 PM Critical Care Performed by: Maverick Vivas MD Authorized by: Maverick Vivas MD Critical care provider statement: ??Critical care time (minutes): ??38 ??Critical care time was exclusive of: ??Separately billable procedures and treating other patients and teaching time ??Critical care was time spent personally by me on the following activities: ??Development of treatment plan with patient or surrogate, ordering and performing treatments and interventions, discussions with consultants, ordering and review of laboratory studies, discussions with primary provider, ordering and review of radiographic studies, evaluation of patient's response to treatment and examination of patient ??Critical care statement: ??I saw and evaluated the patient with the resident/ fellow. I discussed the case with the resident/ fellow and agree with the findings and plan as documented. Comments: ?? Doing well extubated. A bit sleepy this afternoon but otherwise doing well us Maverick Vivas MD IN CLINIC/BEDSIDE ORDERABL ES Final Result * (ABNORMAL) POCT glucose meter (04/06/2022 2:27 PM EST) POCT Glucose 134(H) 74 - 99 mg/dL 04/06/2022 2:30 PM EST [facility] Comment:Accuracy of a glucos e result obtained from a capillary whole blood specimen relies upon adequate, non-compromised capillary blood flow. If the capillary glucose result is not consistent with the patient's clinical signs and symptoms, glucose testing should be repeated with either an arterial or venous sample on the glucometer or sent to the main labortory for testing. Comment 04/06/2022 2:30 PM EST [facility] Water Mangle Tender ID Sheela Sabillon 04/06/2022 2:30 PM EST [facility] Device ID [id number] 04/06/2022 2:30 PM EST [facility] Specimen Type POC Arterial 04/06/2022 2:30 PM EST [facility] Blood Arterial blood specimen / Unknown 04/06/2022 2:27 PM EST 04/06/2022 2:30 PM EST us Greg Juarez MD LAB POINT OF CARE TE ST DOCKED DEVICE UNSOLICITED RESULTS Final Result Performing Organization Address City/State/[facility] de Phone Number [facility] [address] [place] [phone] * (ABNORMAL) Basic metabolic panel (04/06/2022 2:19 PM EST) Glucose, Plasma 148(H) 74 - 99 mg/dL 04/06/2022 3:23 PM EST [facility] BUN, Plasma 27(H) 8 - 23 mg/dL 04/06/2022 3:23 PM EST [facility] Creatinine, Plasma 1.74(H) 0.60 - 1.10 mg/dL 04/06/2022 3:23 PM EST [facility] BUN/Creatinine Ratio 16 04/06/2022 3:23 PM EST [facility] Sodium, Plasma 139 136 - 145 mmol/L 04/06/2022 3:23 PM EST [facility] Potassium, Plasma 4.7 3.7 - 4.8 mmol/L 04/06/2022 3:23 PM EST [facility] Comment:Reference range for Serum potassium is 0.2 to 0.5 mmol/L higher than Plasma range. Chloride, Plasma 108(H) 97 - 107 mmol/L 04/06/2022 3:23 PM EST [facility] CO2, Plasma 21(L) 22 - 29 mmol/L 04/06/2022 3:23 PM EST [facility] Anion Gap 10 6 - 16 mmol/L 04/06/2022 3:23 PM EST [facility] Total Calcium, Plasma 8.3(L) 8.9 - 10.2 mg/dL 04/06/2022 3:23 PM EST [facility] eGFRcr 31.8 mL/min/1.7 3m*2 04/06/2022 3:23 PM EST [facility] Comment: Reported eGFRcr in mL/min/1.73m2 is based the CKD-EPI 202 equation that does not use a race coefficient. Effective 09/29/21 our laboratory changed the eGFR calculation to the CKD-EPI 202 equation from the previously reported eGFR, based on the MDRD equation. ??For comparisons between the two equations, please see laboratory website: ??[email or web address] Blood Venous blood specimen / Unknown Venipuncture / Unknown 04/06/2022 2:19 PM EST 04/06/2022 2:51 PM EST us Greg Juarez MD LAB BLOOD ORDERABLES Final R esult [facility] [address] [place] [address] * (ABNORMAL) Blood gas, arterial (04/06/2022 8:05 AM EST) pH, Arterial 7.29(L) 7.31 - 7.42 LAB HEMATOLOGY METHOD 04/06/2022 8:44 AM EST [facility] pCO2, Arterial 42 32 - 45 mmHg LAB HEMATOLOGY METHOD 04/06/2022 8:44 AM EST [facility] pO2, Arterial 66(L) >80 mmHg LAB HEMATOLOGY METHOD 04/06/2022 8:44 AM EST [facility] SO2, Measured, Arterial 92.3(L) 94 - 98 % LAB HEMATOLOGY METHOD 04/06/2022 8:44 AM EST [facility] Base Excess, Arterial -5.7(L) -2 - 3 mmol/L LAB HEMATOLOGY METHOD 04/06/2022 8:44 AM EST [facility] Bicarbonate, Calculated, Arterial 21(L) 22 - 26 mmol/L LAB HEMATOLOGY METHOD 04/06/2022 8:44 AM EST [facility] Hematocrit, Whole Blood 29.0(L) 34.0 - 45.0 % LAB HEMATOLOGY METHOD 04/06/2022 8:44 AM EST [facility] Sodium, Whole Blood 142 136 - 145 mmol/L LAB HEMATOLOGY METHOD 04/06/2022 8:44 AM EST [facility] Potassium, Whole Blood 4.8 3.6 - 4.9 mmol/L LAB HEMATOLOGY METHOD 04/06/2022 8:44 AM EST [facility] Chloride, Whole Blood 113(H) 97 - 107 mmol/L LAB HEMATOLOGY METHOD 04/06/2022 8:44 AM EST [facility] Glucose, Whole Blood 166(H) 74 - 99 mg/dL LAB HEMATOLOGY METHOD 04/06/2022 8:44 AM EST [facility] Ionized Calcium, Whole Blood 4.5(L) 4.6 - 5.1 mg/dL LAB HEMATOLOGY METHOD 04/06/2022 8:44 AM EST [facility] Lactate, Arterial, Whole Blood 1.2 0.5 - 1.6 mmol/L LAB HEMATOLOGY METHOD 04/06/2022 8:44 AM EST [facility] Blood Arterial blood specimen / Unknown Arterial Puncture / Unknown 04/06/2022 8:05 AM EST 04/06/2022 8:42 AM EST us Greg Juarez MD LAB BLOOD ORDERABLES Final R esult [facility] [address] [place] [address] * (ABNORMAL) POCT glucose meter (04/06/2022 6:04 AM EST) POCT Glucose 152(H) 74 - 99 mg/dL 04/06/2022 6:05 AM EST [facility] Comment:Accuracy of a glucos e result obtained from a capillary whole blood specimen relies upon adequate, non-compromised capillary blood flow. If the capillary glucose result is not consistent with the patient's clinical signs and symptoms, glucose testing should be repeated with either an arterial or venous sample on the glucometer or sent to the main labortory for testing. Comment 04/06/2022 6:05 AM EST [facility] Water Mangle Tender ID Efrain Bains 04/06/2022 6:05 AM EST [facility] Device ID [id number] 04/06/2022 6:05 AM EST [facility] Specimen Type POC Arterial 04/06/2022 6:05 AM EST [facility] Blood Arterial blood specimen / Unknown 04/06/2022 6:04 AM EST 04/06/2022 6:05 AM EST Greg Juarez MD LAB POINT OF CARE TE ST DOCKED DEVICE UNSOLICITED RESULTS Final Result Performing Organization Address City/State/[facility] Co de Phone Number [facility] [address] [place] [address] * (ABNORMAL) Blood gas panel, arterial (04/06/2022 5:42 AM EST) pH, Arterial 7.28(L) 7.31 - 7.42 LAB HEMATOLOGY METHOD 04/06/2022 6:17 AM EST [facility] pCO2, Arterial 44 32 - 45 mmHg LAB HEMATOLOGY METHOD 04/06/2022 6:17 AM EST [facility] pO2, Arterial 66(L) >80 mmHg LAB HEMATOLOGY METHOD 04/06/2022 6:17 AM EST [facility] SO2, Measured, Arterial 92.1(L) 94 - 98 % LAB HEMATOLOGY METHOD 04/06/2022 6:17 AM EST [facility] Base Excess, Arterial -6.0(L) -2 - 3 mmol/L LAB HEMATOLOGY METHOD 04/06/2022 6:17 AM EST [facility] Bicarbonate, Calculated, Arterial 21(L) 22 - 26 mmol/L LAB HEMATOLOGY METHOD 04/06/2022 6:17 AM EST [facility] Hematocrit, Whole Blood 29.7(L) 34.0 - 45.0 % LAB HEMATOLOGY METHOD 04/06/2022 6:17 AM EST [facility] Sodium, Whole Blood 141 136 - 145 mmol/L LAB HEMATOLOGY METHOD 04/06/2022 6:17 AM EST [facility] Potassium, Whole Blood 4.8 3.6 - 4.9 mmol/L LAB HEMATOLOGY METHOD 04/06/2022 6:17 AM EST [facility] Chloride, Whole Blood 113(H) 97 - 107 mmol/L LAB HEMATOLOGY METHOD 04/06/2022 6:17 AM EST [facility] Glucose, Whole Blood 169(H) 74 - 99 mg/dL LAB HEMATOLOGY METHOD 04/06/2022 6:17 AM EST [facility] Ionized Calcium, Whole Blood 4.5(L) 4.6 - 5.1 mg/dL LAB HEMATOLOGY METHOD 04/06/2022 6:17 AM EST [facility] Lactate, Arterial, Whole Blood 1.2 0.5 - 1.6 mmol/L LAB HEMATOLOGY METHOD 04/06/2022 6:17 AM EST [facility] Blood Arterial blood specimen / Unknown Arterial Puncture / Unknown 04/06/2022 5:42 AM EST 04/06/2022 6:14 AM EST Greg Juarez MD LAB BLOOD ORDERABLES Final R esult Performing Organization Address City/[facility] Co de Phone Number [facility] [address] [place] [address] * (ABNORMAL) Potassium (04/06/2022 5:41 AM EST) Potassium, Plasma 5.1(H) 3.7 - 4.8 mmol/L 04/06/2022 7:13 AM EST [facility] Comment:Reference range for Serum potassium is 0.2 to 0.5 mmol/L higher than Plasma range. Blood Venous blood specimen / Unknown Venipuncture / Unknown 04/06/2022 5:41 AM EST 04/06/2022 6:05 AM EST Greg Juarez MD LAB BLOOD ORDERABLES Final R esult Performing Organization Address City/[facility]/ZIP Co de Phone Number [facility] [address] [place] [address] * (ABNORMAL) Hemoglobin and Hematocrit, Blood (04/06/2022 5:41 AM EST) HGB 9.6(L) 11.2 - 15.7 g/dL LAB HEMATOLOGY METHOD 04/06/2022 6:33 AM EST [facility] HCT 30.3(L) 34.0 - 45.0 % LAB HEMATOLOGY METHOD 04/06/2022 6:33 AM EST [facility] Blood Venous blood specimen / Unknown Venipuncture / Unknown 04/06/2022 5:41 AM EST 04/06/2022 6:05 AM EST us Greg Juarez MD LAB BLOOD ORDERABLES Final R esult [facility] [address] [place], [place] [id number] * XR Chest 1 View (04/06/2022 5:11 AM EST) Anatomical Region Laterality Modality Chest Digital Radiogra phy Impressions 04/06/2022 7:42 AM EST Similar lung aeration. CRITICAL RESULT: ?? No. COMMUNICATION: Per this written report. Dictated by Natalie Amaya MD on 04/06/2022 7:40 AM Signed by Natalie Amaya MD on 04/06/2022 7:42 AM Narrative 04/06/2022 7:42 AM EST Exam/Procedure: XR CHEST 1 VIEW ordered by LONDON REN [id number] CLINICAL INDICATION: Post-Op Cardiac Surgery TECHNIQUE: XR CHEST 1 VIEW COMPARISON: 04/05/2022 FINDINGS: Support hardware is stable. Underinflated lungs with perihilar and basilar atelectasis. Vascular congestion. Stable cardiomediastinal contours. Procedure Note Natalie Amaya MD - 04/06/2022 Exam/Procedure: XR CHEST 1 VIEW ordered by LONDON REN [id number] CLINICAL INDICATION: Post-Op Cardiac Surgery TECHNIQUE: XR CHEST 1 VIEW COMPARISON: 04/05/2022 FINDINGS: Support hardware is stable. Underinflated lungs with perihilar and basilaratelectasis. Vascular congestion. Stable cardiomediastinal contours. IMPRESSION: Similar lung aeration. CRITICAL RESULT: No. COMMUNICATION: Per this written report. Dictated by Natalie Amaya MD on 04/06/2022 7:40 AM Signed by Natalie Amaya MD on 04/06/2022 7:42 AM [place] [facility] IMG XR PROCEDURES Final Res ult * (ABNORMAL) Blood gas, arterial (04/06/2022 4:14 AM EST) pH, Arterial 7.26(L) 7.31 - 7.42 LAB HEMATOLOGY METHOD 04/06/2022 6:05 AM EST [facility] pCO2, Arterial 47(H) 32 - 45 mmHg LAB HEMATOLOGY METHOD 04/06/2022 6:05 AM [facility] pO2, Arterial 75(L) >80 mmHg LAB HEMATOLOGY METHOD 04/06/2022 6:05 AM [facility] SO2, Measured, Arterial 93.8(L) 94 - 98 % LAB HEMATOLOGY METHOD 04/06/2022 6:05 AM [facility] Base Excess, Arterial -6.2(L) -2 - 3 mmol/L LAB HEMATOLOGY METHOD 04/06/2022 6:05 AM [facility] Bicarbonate, Calculated, Arterial 21(L) 22 - 26 mmol/L LAB HEMATOLOGY METHOD 04/06/2022 6:05 AM [facility] Hematocrit, Whole Blood 37.4 34.0 - 45.0 % LAB HEMATOLOGY METHOD 04/06/2022 6:05 AM [facility] Sodium, Whole Blood 139 136 - 145 mmol/L LAB HEMATOLOGY METHOD 04/06/2022 6:05 AM [facility] Potassium, Whole Blood 4.8 3.6 - 4.9 mmol/L LAB HEMATOLOGY METHOD 04/06/2022 6:05 AM [facility] Chloride, Whole Blood 114(H) 97 - 107 mmol/L LAB HEMATOLOGY METHOD 04/06/2022 6:05 AM [facility] Glucose, Whole Blood 161(H) 74 - 99 mg/dL LAB HEMATOLOGY METHOD 04/06/2022 6:05 AM [facility] Ionized Calcium, Whole Blood 4.3(L) 4.6 - 5.1 mg/dL LAB HEMATOLOGY METHOD 04/06/2022 6:05 AM [facility] Lactate, Arterial, Whole Blood 1.4 0.5 - 1.6 mmol/L LAB HEMATOLOGY METHOD 04/06/2022 6:05 AM EST [facility] Blood Arterial blood specimen / Unknown Arterial Puncture / Unknown 04/06/2022 4:14 AM EST 04/06/2022 6:02 AM EST us [place] [facility] LAB BLOOD ORDERABLES Final Result Performing Organization Address City/[facility]/ZIP Co de Phone Number [facility] [address] [place] [address] * (ABNORMAL) Potassium, Plasma (04/06/2022 4:13 AM EST) Potassium, Plasma 5.1(H) 3.7 - 4.8 mmol/L 04/06/2022 7:13 AM EST [facility] Comment:Reference range for Serum potassium is 0.2 to 0.5 mmol/L higher than Plasma range. Blood Venous blood specimen / Unknown Venipuncture / Unknown 04/06/2022 4:13 AM EST 04/06/2022 5:59 AM EST us [place] [facility] LAB BLOOD ORDERABLES Final Result Performing Organization Address City/[facility] Co de Phone Number [facility] [address] [place] [address] * (ABNORMAL) Hematocrit (04/06/2022 4:13 AM EST) HCT 30.2(L) 34.0 - 45.0 % LAB HEMATOLOGY METHOD 04/06/2022 6:22 AM EST [facility] Blood Venous blood specimen / Unknown Venipuncture / Unknown 04/06/2022 4:13 AM EST 04/06/2022 5:59 AM EST us [place] [facility] LAB BLOOD ORDERABLES Final Result Performing Organization Address City/[facility] Co de Phone Number [facility] [address] [place] [address] * (ABNORMAL) Hemoglobin (04/06/2022 4:13 AM EST) HGB 9.6(L) 11.2 - 15.7 g/dL LAB HEMATOLOGY METHOD 04/06/2022 6:22 AM EST [facility] Blood Venous blood specimen / Unknown Venipuncture / Unknown 04/06/2022 4:13 AM EST 04/06/2022 5:59 AM EST [place] [facility] LAB BLOOD ORDERABLES Final Result Performing Organization Address City/[facility] Co de Phone Number [facility] [address] [place] [address] * ECG Adult - POD 1 (04/06/2022 4:12 AM EST) EKG DIAGNOSIS CLASS Abnormal MUSE ECG Ventricular Rate 96 BPM MUSE ECG Atrial Rate 96 BPM MUSE ECG FL Interval 134 ms MUSE ECG QRSD Interval 90 ms MUSE ECG QT Interval 380 ms MUSE ECG QTC Interval 480 ms MUSE ECG P [place] 62 degrees MUSE ECG R [place] 9 degrees MUSE ECG T Wave [place] 97 degrees MUSE ECG Diagnosis Normal sinus rhythm MUSE ECG Diagnosis ST & MUSE ECG Diagnosis T wave abnormality, consider lateral ischemia MUSE ECG Diagnosis Prolonged QT MUSE ECG Diagnosis Confirmed by Rakan Abbott ([id number]) on 04/06/2022 10:01:54 AM MUSE ECG 04/06/2022 4:12 AM EST 04/06/2022 10:01 AM EST [place] [facility] ECG ORDERABLES Final Resul t Performing Organization Address City/[facility] Co de Phone Number MUSE ECG * (ABNORMAL) POCT glucose meter (04/06/2022 2:00 AM EST) POCT Glucose 156(H) 74 - 99 mg/dL 04/06/2022 2:05 AM EST [facility] Comment:Accuracy of a glucos e result obtained from a capillary whole blood specimen relies upon adequate, non-compromised capillary blood flow. If the capillary glucose result is not consistent with the patient's clinical signs and symptoms, glucose testing should be repeated with either an arterial or venous sample on the glucometer or sent to the main labortory for testing. Comment 04/06/2022 2:05 AM EST [facility] Water Mangle Tender ID Efrain Bains 04/06/2022 2:05 AM EST [facility] Device ID [id number] 04/06/2022 2:05 AM EST [facility] Specimen Type POC Arterial 04/06/2022 2:05 AM EST [facility] Blood Arterial blood specimen / Unknown 04/06/2022 2:00 AM EST 04/06/2022 2:05 AM EST Greg Juarez MD LAB POINT OF CARE TE ST DOCKED DEVICE UNSOLICITED RESULTS Final Result [facility] [address] [place] [address] * (ABNORMAL) Basic metabolic panel (04/06/2022 12:24 AM EST) Glucose, Plasma 177(H) 74 - 99 mg/dL 04/06/2022 1:41 AM EST [facility] BUN, Plasma 21 8 - 23 mg/dL 04/06/2022 1:41 AM EST [facility] Creatinine, Plasma 1.38(H) 0.60 - 1.10 mg/dL 04/06/2022 1:41 AM EST [facility] BUN/Creatinine Ratio 15 04/06/2022 1:41 AM EST [facility] Sodium, Plasma 140 136 - 145 mmol/L 04/06/2022 1:41 AM EST [facility] Potassium, Plasma 5.3(H) 3.7 - 4.8 mmol/L 04/06/2022 1:41 AM EST [facility] Comment:Reference range for Serum potassium is 0.2 to 0.5 mmol/L higher than Plasma range. Chloride, Plasma 112(H) 97 - 107 mmol/L 04/06/2022 1:41 AM EST [facility] CO2, Plasma 19(L) 22 - 29 mmol/L 04/06/2022 1:41 AM EST [facility] Anion Gap 9 6 - 16 mmol/L 04/06/2022 1:41 AM EST [facility] Total Calcium, Plasma 7.7(L) 8.9 - 10.2 mg/dL 04/06/2022 1:41 AM EST [facility] eGFRcr 42.0 mL/min/1.7 3m*2 04/06/2022 1:41 AM EST [facility] Comment: Reported eGFRcr in mL/min/1.73m2 is based the CKD-EPI 202 equation that does not use a race coefficient. Effective 09/29/21 our laboratory changed the eGFR calculation to the CKD-EPI 2020 equation from the previously reported eGFR, based on the MDRD equation. ??For comparisons between the two equations, please see laboratory website: ??[email or web address] Blood Venous blood specimen / Unknown Venipuncture / Unknown 04/06/2022 12:24 AM EST 04/06/2022 12:40 AM EST us [place] [facility] LAB BLOOD ORDERABLES Final Result [facility] [address] [place], [place] [id number] * (ABNORMAL) CBC (04/06/2022 12:24 AM EST) WBC Count 12.08(H) 3.70 - 10.30 10*3/uL LAB HEMATOLOGY METHOD 04/06/2022 12:52 AM EST [facility] RBC Count 3.61(L) 3.90 - 5.20 10*6/uL LAB HEMATOLOGY METHOD 04/06/2022 12:52 AM EST [facility] HGB 10.0(L) 11.2 - 15.7 g/dL LAB HEMATOLOGY METHOD 04/06/2022 12:52 AM EST [facility] HCT 31.4(L) 34.0 - 45.0 % LAB HEMATOLOGY METHOD 04/06/2022 12:52 AM EST [facility] Platelet Count 195 155 - 369 10*3/uL LAB HEMATOLOGY METHOD 04/06/2022 12:52 AM EST [facility] MCV 87 79 - 98 fL LAB HEMATOLOGY METHOD 04/06/2022 12:52 AM EST [facility] MCH 27.7 26.0 - 32.0 pg LAB HEMATOLOGY METHOD 04/06/2022 12:52 AM EST [facility] MCHC 31.8 30.7 - 35.5 g/dL LAB HEMATOLOGY METHOD 04/06/2022 12:52 AM EST [facility] RDW 14.4 11.5 - 14.5 % LAB HEMATOLOGY METHOD 04/06/2022 12:52 AM EST [facility] MPV 10.4 8.8 - 12.5 fL LAB HEMATOLOGY METHOD 04/06/2022 12:52 AM EST [facility] nRBC 0.0 <=0.0 per 100 WBCs LAB HEMATOLOGY METHOD 04/06/2022 12:52 AM EST [facility] Blood Venous blood specimen / Unknown Venipuncture / Unknown 04/06/2022 12:24 AM EST 04/06/2022 12:42 AM EST us [place] [facility] LAB BLOOD ORDERABLES Final Result Performing Organization Address City/[facility]/ZIP Co de Phone Number [facility] [address] [place] [address] * (ABNORMAL) Potassium, Plasma (04/06/2022 12:24 AM EST) Potassium, Plasma 5.3(H) 3.7 - 4.8 mmol/L 04/06/2022 1:41 AM EST [facility] Comment:Reference range for Serum potassium is 0.2 to 0.5 mmol/L higher than Plasma range. Blood Venous blood specimen / Unknown Venipuncture / Unknown 04/06/2022 12:24 AM EST 04/06/2022 12:40 AM EST us [place] [facility] LAB BLOOD ORDERABLES Final Result Performing Organization Address City/[facility]/ZIP Co de Phone Number [facility] [address] [place] [address] * (ABNORMAL) Hematocrit (04/06/2022 12:24 AM EST) HCT 31.4(L) 34.0 - 45.0 % LAB HEMATOLOGY METHOD 04/06/2022 12:52 AM EST [facility] Blood Venous blood specimen / Unknown Venipuncture / Unknown 04/06/2022 12:24 AM EST 04/06/2022 12:42 AM EST us [place] [facility] LAB BLOOD ORDERABLES Final Result Performing Organization Address City/[facility]/ZIP Co de Phone Number [facility] [address] [place] [address] * (ABNORMAL) Hemoglobin (04/06/2022 12:24 AM EST) HGB 10.0(L) 11.2 - 15.7 g/dL LAB HEMATOLOGY METHOD 04/06/2022 12:52 AM EST [facility] Blood Venous blood specimen / Unknown Venipuncture / Unknown 04/06/2022 12:24 AM EST 04/06/2022 12:42 AM EST [place] [facility] LAB BLOOD ORDERABLES Final Result [facility] [address] [place] [address] * (ABNORMAL) Blood gas, arterial (04/06/2022 12:24 AM EST) pH, Arterial 7.27(L) 7.31 - 7.42 LAB HEMATOLOGY METHOD 04/06/2022 12:41 AM EST [facility] pCO2, Arterial 46(H) 32 - 45 mmHg LAB HEMATOLOGY METHOD 04/06/2022 12:41 AM EST [facility] pO2, Arterial 73(L) >80 mmHg LAB HEMATOLOGY METHOD 04/06/2022 12:41 AM EST [facility] SO2, Measured, Arterial 93.7(L) 94 - 98 % LAB HEMATOLOGY METHOD 04/06/2022 12:41 AM EST [facility] Base Excess, Arterial -5.9(L) -2 - 3 mmol/L LAB HEMATOLOGY METHOD 04/06/2022 12:41 AM EST [facility] Bicarbonate, Calculated, Arterial 21(L) 22 - 26 mmol/L LAB HEMATOLOGY METHOD 04/06/2022 12:41 AM EST [facility] Hematocrit, Whole Blood 31.0(L) 34.0 - 45.0 % LAB HEMATOLOGY METHOD 04/06/2022 12:41 AM EST [facility] Sodium, Whole Blood 139 136 - 145 mmol/L LAB HEMATOLOGY METHOD 04/06/2022 12:41 AM EST [facility] Potassium, Whole Blood 5.0(H) 3.6 - 4.9 mmol/L LAB HEMATOLOGY METHOD 04/06/2022 12:41 AM EST [facility] Chloride, Whole Blood 113(H) 97 - 107 mmol/L LAB HEMATOLOGY METHOD 04/06/2022 12:41 AM EST [facility] Glucose, Whole Blood 171(H) 74 - 99 mg/dL LAB HEMATOLOGY METHOD 04/06/2022 12:41 AM EST [facility] Ionized Calcium, Whole Blood 4.4(L) 4.6 - 5.1 mg/dL LAB HEMATOLOGY METHOD 04/06/2022 12:41 AM EST [facility] Lactate, Arterial, Whole Blood 0.8 0.5 - 1.6 mmol/L LAB HEMATOLOGY METHOD 04/06/2022 12:41 AM EST [facility] Blood Arterial blood specimen / Unknown Arterial Puncture / Unknown 04/06/2022 12:24 AM EST 04/06/2022 12:39 AM EST us [place] [facility] LAB BLOOD ORDERABLES Final Result Performing Organization Address City/[facility]/ZIP Co de Phone Number [facility] [address] [place] [address] * (ABNORMAL) Potassium (04/05/2022 11:02 PM EST) Potassium, Plasma 5.3(H) 3.7 - 4.8 mmol/L 04/05/2022 11:36 PM EST [facility] Comment:Reference range for Serum potassium is 0.2 to 0.5 mmol/L higher than Plasma range. Blood Venous blood specimen / Unknown Venipuncture / Unknown 04/05/2022 11:02 PM EST 04/05/2022 11:14 PM EST us Greg Juarez MD LAB BLOOD ORDERABLES Final R esult [facility] [address] [place] [address] * (ABNORMAL) Blood gas panel with oximetry, arterial (04/05/2022 10:06 PM EST) pH, Arterial 7.27(L) 7.31 - 7.42 LAB HEMATOLOGY METHOD 04/05/2022 10:13 PM EST [facility] pCO2, Arterial 44 32 - 45 mmHg LAB HEMATOLOGY METHOD 04/05/2022 10:13 PM EST [facility] pO2, Arterial 79(L) >80 mmHg LAB HEMATOLOGY METHOD 04/05/2022 10:13 PM [facility] SO2, Measured, Arterial 95.2 94 - 98 % LAB HEMATOLOGY METHOD 04/05/2022 10:13 PM [facility] Base Excess, Arterial -6.4(L) -2 - 3 mmol/L LAB HEMATOLOGY METHOD 04/05/2022 10:13 PM [facility] Bicarbonate, Calculated, Arterial 20(L) 22 - 26 mmol/L LAB HEMATOLOGY METHOD 04/05/2022 10:13 PM [facility] Hematocrit, Whole Blood 31.8(L) 34.0 - 45.0 % LAB HEMATOLOGY METHOD 04/05/2022 10:13 PM [facility] Sodium, Whole Blood 139 136 - 145 mmol/L LAB HEMATOLOGY METHOD 04/05/2022 10:13 PM [facility] Potassium, Whole Blood 5.1(H) 3.6 - 4.9 mmol/L LAB HEMATOLOGY METHOD 04/05/2022 10:13 PM [facility] Chloride, Whole Blood 112(H) 97 - 107 mmol/L LAB HEMATOLOGY METHOD 04/05/2022 10:13 PM [facility] Glucose, Whole Blood 172(H) 74 - 99 mg/dL LAB HEMATOLOGY METHOD 04/05/2022 10:13 PM [facility] Ionized Calcium, Whole Blood 4.4(L) 4.6 - 5.1 mg/dL LAB HEMATOLOGY METHOD 04/05/2022 10:13 PM [facility] Lactate, Arterial, Whole Blood 0.8 0.5 - 1.6 mmol/L LAB HEMATOLOGY METHOD 04/05/2022 10:13 PM [facility] Oxyhemoglobin, Arterial, Whole Blood 93.1(L) 94 - 97 % LAB HEMATOLOGY METHOD 04/05/2022 10:13 PM [facility] Hemoglobin Reduced, Arterial, Whole Blood 4.7(H) <4.1 % LAB HEMATOLOGY METHOD 04/05/2022 10:13 PM [facility] Total Hemoglobin, Arterial, Whole Blood 10.4(L) 11.2 - 15.7 g/dL LAB HEMATOLOGY METHOD 04/05/2022 10:13 PM [facility] Blood Arterial blood specimen / Unknown 04/05/2022 10:06 PM EST 04/05/2022 10:11 PM EST us Greg Juarez MD LAB BLOOD ORDERABLES Final R esult [facility] [address] [place] [address] * XR Chest 1 View (04/05/2022 9:06 PM EST) Anatomical Region Laterality Modality Chest Digital Radiogra phy Impressions 04/05/2022 10:26 PM EST Questionable trace left pneumothorax. CRITICAL RESULT: ?? No COMMUNICATION: Per this written report. Dictated by Lashay Jain MD on 04/05/2022 10:24 PM Signed by Lashay Jain MD on 04/05/2022 10:26 PM Narrative 04/05/2022 10:26 PM EST Exam/Procedure: XR CHEST 1 VIEW ordered by LONDON REN, [id number] CLINICAL INDICATION: Post-Op Cardiac Surgery TECHNIQUE: XR CHEST 1 VIEW COMPARISON: 03/17/2022 FINDINGS: The cardiomediastinal silhouette is more prominent. The endotracheal tube tip overlies mid thoracic trachea. Right IJ approach [place] catheter tip overlies the pulmonary artery. Bilateral chest tubes and mediastinal drains. Questionable trace left pneumothorax. Procedure Note Lashay Jain MD - 04/05/2022 Exam/Procedure: XR CHEST 1 VIEW ordered by LONDON REN, [id number] CLINICAL INDICATION: Post-Op Cardiac Surgery TECHNIQUE: XR CHEST 1 VIEW COMPARISON: 03/17/2022 FINDINGS: The cardiomediastinal silhouette is more prominent. The endotracheal tubetip overlies mid thoracic trachea. Right IJ approach [place] cathetertip overlies the pulmonary artery. Bilateral chest tubes and mediastinaldrains. Questionable trace left pneumothorax. IMPRESSION: Questionable trace left pneumothorax. CRITICAL RESULT: No COMMUNICATION: Per this written report. Dictated by Lashay Jain MD on 04/05/2022 10:24 PM Signed by Lashay Jain MD on 04/05/2022 10:26 PM us [place] Ren PA IMG XR PROCEDURES Final Res ult * (ABNORMAL) Blood gas panel with oximetry, arterial (04/05/2022 9:00 PM EST) pH, Arterial 7.30(L) 7.31 - 7.42 LAB HEMATOLOGY METHOD 04/05/2022 9:54 PM EST [facility] pCO2, Arterial 41 32 - 45 mmHg LAB HEMATOLOGY METHOD 04/05/2022 9:54 PM EST [facility] pO2, Arterial 69(L) >80 mmHg LAB HEMATOLOGY METHOD 04/05/2022 9:54 PM [facility] SO2, Measured, Arterial 93.5(L) 94 - 98 % LAB HEMATOLOGY METHOD 04/05/2022 9:54 PM [facility] Base Excess, Arterial -5.7(L) -2 - 3 mmol/L LAB HEMATOLOGY METHOD 04/05/2022 9:54 PM [facility] Bicarbonate, Calculated, Arterial 20(L) 22 - 26 mmol/L LAB HEMATOLOGY METHOD 04/05/2022 9:54 PM [facility] Hematocrit, Whole Blood 30.8(L) 34.0 - 45.0 % LAB HEMATOLOGY METHOD 04/05/2022 9:54 PM [facility] Sodium, Whole Blood 139 136 - 145 mmol/L LAB HEMATOLOGY METHOD 04/05/2022 9:54 PM [facility] Potassium, Whole Blood 4.5 3.6 - 4.9 mmol/L LAB HEMATOLOGY METHOD 04/05/2022 9:54 PM [facility] Chloride, Whole Blood 112(H) 97 - 107 mmol/L LAB HEMATOLOGY METHOD 04/05/2022 9:54 PM [facility] Glucose, Whole Blood 157(H) 74 - 99 mg/dL LAB HEMATOLOGY METHOD 04/05/2022 9:54 PM [facility] Ionized Calcium, Whole Blood 4.4(L) 4.6 - 5.1 mg/dL LAB HEMATOLOGY METHOD 04/05/2022 9:54 PM [facility] Lactate, Arterial, Whole Blood 0.8 0.5 - 1.6 mmol/L LAB HEMATOLOGY METHOD 04/05/2022 9:54 PM [facility] Oxyhemoglobin, Arterial, Whole Blood 91.3(L) 94 - 97 % LAB HEMATOLOGY METHOD 04/05/2022 9:54 PM [facility] Hemoglobin Reduced, Arterial, Whole Blood 6.4(H) <4.1 % LAB HEMATOLOGY METHOD 04/05/2022 9:54 PM [facility] Total Hemoglobin, Arterial, Whole Blood 10.0(L) 11.2 - 15.7 g/dL LAB HEMATOLOGY METHOD 04/05/2022 9:54 PM EST [facility] Blood Arterial blood specimen / Unknown 04/05/2022 9:00 PM EST 04/05/2022 9:53 PM EST Greg Juarez MD LAB BLOOD ORDERABLES Final R esult Performing Organization Address City/[facility] Co de Phone Number [facility] [address] [place] [address] * (ABNORMAL) POCT glucose meter (04/05/2022 7:57 PM EST) POCT Glucose 147(H) 74 - 99 mg/dL 04/05/2022 8:00 PM EST [facility] Comment:Accuracy of a glucos e result obtained from a capillary whole blood specimen relies upon adequate, non-compromised capillary blood flow. If the capillary glucose result is not consistent with the patient's clinical signs and symptoms, glucose testing should be repeated with either an arterial or venous sample on the glucometer or sent to the main labortory for testing. Comment 04/05/2022 8:00 PM EST [facility] Water Mangle Tender ID Maia Titus 04/05/2022 8:00 PM EST [facility] Device ID [id number] 04/05/2022 8:00 PM EST [facility] Specimen Type POC Arterial 04/05/2022 8:00 PM EST [facility] Blood Arterial blood specimen / Unknown 04/05/2022 7:57 PM EST 04/05/2022 8:00 PM EST us Greg Juarez MD LAB POINT OF CARE TE ST DOCKED DEVICE UNSOLICITED RESULTS Final Result Performing Organization Address City/[facility]/ZIP Co de Phone Number [facility] [address] [place] [address] * Multi Drug Resistance Test (04/05/2022 6:57 PM EST) Culture No growth at day 2 04/07/2022 10:18 AM EST [facility] Swab (Nares and Zoraida Rectal) Non-blood Collection / Unknown 04/05/2022 6:57 PM EST 04/05/2022 7:03 PM EST Greg Juarez MD LAB MICROBIOLOGY - GENERAL O RDERABLES Final Result Performing Organization Address [facility] Co de Phone Number [facility] [address] [place] [address] * Potassium, Plasma (04/05/2022 6:57 PM EST) Potassium, Plasma 3.9 3.7 - 4.8 mmol/L 04/05/2022 7:30 PM EST [facility] Comment:Reference range for Serum potassium is 0.2 to 0.5 mmol/L higher than Plasma range. Blood Venous blood specimen / Unknown Venipuncture / Unknown 04/05/2022 6:57 PM EST 04/05/2022 7:04 PM EST [place] [facility] LAB BLOOD ORDERABLES Final Result Performing Organization Address [facility] de Phone Number [facility] [address] [place] [address] * (ABNORMAL) Hematocrit (04/05/2022 6:57 PM EST) HCT 29.5(L) 34.0 - 45.0 % LAB HEMATOLOGY METHOD 04/05/2022 7:12 PM EST [facility] Blood Venous blood specimen / Unknown Venipuncture / Unknown 04/05/2022 6:57 PM EST 04/05/2022 7:04 PM EST [place] [facility] LAB BLOOD ORDERABLES Final Result Performing Organization Address [facility] de Phone Number [facility] [address] [place] [address] * (ABNORMAL) Hemoglobin (04/05/2022 6:57 PM EST) HGB 9.6(L) 11.2 - 15.7 g/dL LAB HEMATOLOGY METHOD 04/05/2022 7:12 PM EST [facility] Blood Venous blood specimen / Unknown Venipuncture / Unknown 04/05/2022 6:57 PM EST 04/05/2022 7:04 PM EST us [place] [facility] LAB BLOOD ORDERABLES Final Result [facility] [address] [place] [id number] * (ABNORMAL) Blood gas, arterial (04/05/2022 6:57 PM EST) pH, Arterial 7.31 7.31 - 7.42 LAB HEMATOLOGY METHOD 04/05/2022 7:12 PM EST [facility] pCO2, Arterial 40 32 - 45 mmHg LAB HEMATOLOGY METHOD 04/05/2022 7:12 PM EST [facility] pO2, Arterial 109 >80 mmHg LAB HEMATOLOGY METHOD 04/05/2022 7:12 PM EST [facility] SO2, Measured, Arterial 98.8(H) 94 - 98 % LAB HEMATOLOGY METHOD 04/05/2022 7:12 PM EST [facility] Base Excess, Arterial -5.8(L) -2 - 3 mmol/L LAB HEMATOLOGY METHOD 04/05/2022 7:12 PM EST [facility] Bicarbonate, Calculated, Arterial 20(L) 22 - 26 mmol/L LAB HEMATOLOGY METHOD 04/05/2022 7:12 PM EST [facility] Hematocrit, Whole Blood 29.8(L) 34.0 - 45.0 % LAB HEMATOLOGY METHOD 04/05/2022 7:12 PM EST [facility] Sodium, Whole Blood 140 136 - 145 mmol/L LAB HEMATOLOGY METHOD 04/05/2022 7:12 PM EST [facility] Potassium, Whole Blood 3.7 3.6 - 4.9 mmol/L LAB HEMATOLOGY METHOD 04/05/2022 7:12 PM EST [facility] Chloride, Whole Blood 112(H) 97 - 107 mmol/L LAB HEMATOLOGY METHOD 04/05/2022 7:12 PM EST [facility] Glucose, Whole Blood 166(H) 74 - 99 mg/dL LAB HEMATOLOGY METHOD 04/05/2022 7:12 PM EST [facility] Ionized Calcium, Whole Blood 4.3(L) 4.6 - 5.1 mg/dL LAB HEMATOLOGY METHOD 04/05/2022 7:12 PM EST [facility] Lactate, Arterial, Whole Blood 1.3 0.5 - 1.6 mmol/L LAB HEMATOLOGY METHOD 04/05/2022 7:12 PM EST [facility] Blood Arterial blood specimen / Unknown Arterial Puncture / Unknown 04/05/2022 6:57 PM EST 04/05/2022 7:11 PM EST us [place] MARIANO LAB BLOOD ORDERABLES Final Result Performing Organization Address [facility] Co de Phone Number [facility] [address] [place] [address] * APTT (04/05/2022 6:57 PM EST) aPTT 32 25 - 35 sec LAB COAGULATION METHOD 04/05/2022 7:28 PM EST [facility] Blood Venous blood specimen / Unknown Venipuncture / Unknown 04/05/2022 6:57 PM EST 04/05/2022 7:04 PM EST [place] [facility] LAB BLOOD ORDERABLES Final Result Performing Organization Address [facility] Phone Number [facility] [address] [place] [address] * (ABNORMAL) Protime-INR (04/05/2022 6:57 PM EST) Prothrombin Time 16.0(H) 12.0 - 14.3 sec LAB COAGULATION METHOD 04/05/2022 7:28 PM EST [facility] INR 1.2(H) 0.9 - 1.1 LAB COAGULATION METHOD 04/05/2022 7:28 PM EST [facility] Blood Venous blood specimen / Unknown Venipuncture / Unknown 04/05/2022 6:57 PM EST 04/05/2022 7:04 PM EST Narrative [facility] - 04/05/2022 7:28 PM EST OPTIMAL INR RANGES FOR PATIENT ON ORAL ANTICOAGULANT THERAPY Prevention of venous thromboembolism ?INR 2.0 to 3.0 In patients with heart disease: Atrial fibrillation ?INR 2.0 to 3.0 Valvular heart disease ? INR 2.0 to 3.0 Tissue heart valves ?INR 2.0 to 3.0 Mechanical prosthetic valves ? INR 2.5 to 3.5 Prevention of recurrent AK ? INR 2.5 to 3.5 us [place] MAR[facility] LAB BLOOD ORDERABLES Final Result Performing Organization Address [facility] de Phone Number [facility] [address] [place] [address] * Phosphorus (04/05/2022 6:57 PM EST) Phosphorus, Plasma 2.5 2.5 - 4.5 mg/dL 04/05/2022 7:30 PM EST [facility] Blood Venous blood specimen / Unknown Venipuncture / Unknown 04/05/2022 6:57 PM EST 04/05/2022 7:04 PM EST us [place] [facility] LAB BLOOD ORDERABLES Final Result Performing Organization Address [facility] de Phone Number [facility] [address] [place] [address] * (ABNORMAL) Magnesium (04/05/2022 6:57 PM EST) Magnesium, Plasma 4.1(H) 1.9 - 2.4 mg/dL 04/05/2022 7:30 PM EST [facility] Blood Venous blood specimen / Unknown Venipuncture / Unknown 04/05/2022 6:57 PM EST 04/05/2022 7:04 PM EST us [place] [facility] LAB BLOOD ORDERABLES Final Result Performing Organization Address [facility] de Phone Number [facility] [address] [place] [address] * (ABNORMAL) Basic metabolic panel (04/05/2022 6:57 PM EST) Glucose, Plasma 167(H) 74 - 99 mg/dL 04/05/2022 7:30 PM EST [facility] BUN, Plasma 20 8 - 23 mg/dL 04/05/2022 7:30 PM EST [facility] Creatinine, Plasma 1.32(H) 0.60 - 1.10 mg/dL 04/05/2022 7:30 PM EST [facility] BUN/Creatinine Ratio 15 04/05/2022 7:30 PM EST [facility] Sodium, Plasma 139 136 - 145 mmol/L 04/05/2022 7:30 PM EST [facility] Potassium, Plasma 3.9 3.7 - 4.8 mmol/L 04/05/2022 7:30 PM EST [facility] Comment:Reference range for Serum potassium is 0.2 to 0.5 mmol/L higher than Plasma range. Chloride, Plasma 111(H) 97 - 107 mmol/L 04/05/2022 7:30 PM EST [facility] CO2, Plasma 19(L) 22 - 29 mmol/L 04/05/2022 7:30 PM EST [facility] Anion Gap 9 6 - 16 mmol/L 04/05/2022 7:30 PM EST [facility] Total Calcium, Plasma 7.4(L) 8.9 - 10.2 mg/dL 04/05/2022 7:30 PM EST [facility] eGFRcr 44.3 mL/min/1.7 3m*2 04/05/2022 7:30 PM EST [facility] Comment: Reported eGFRcr in mL/min/1.73m2 is based the CKD-EPI 2021 equation that does not use a race coefficient. Effective 09/29/21 our laboratory changed the eGFR calculation to the CKD-EPI 2021 equation from the previously reported eGFR, based on the MDRD equation. ??For comparisons between the two equations, please see laboratory website: ??[email or web address] Blood Venous blood specimen / Unknown Venipuncture / Unknown 04/05/2022 6:57 PM EST 04/05/2022 7:04 PM EST us [place] [facility] LAB BLOOD ORDERABLES Final Result [facility] [address] [place] [address] * (ABNORMAL) CBC (04/05/2022 6:57 PM EST) WBC Count 13.75(H) 3.70 - 10.30 10*3/uL LAB HEMATOLOGY METHOD 04/05/2022 7:12 PM EST [facility] RBC Count 3.41(L) 3.90 - 5.20 10*6/uL LAB HEMATOLOGY METHOD 04/05/2022 7:12 PM EST [facility] HGB 9.6(L) 11.2 - 15.7 g/dL LAB HEMATOLOGY METHOD 04/05/2022 7:12 PM EST [facility] HCT 29.5(L) 34.0 - 45.0 % LAB HEMATOLOGY METHOD 04/05/2022 7:12 PM EST [facility] Platelet Count 197 155 - 369 10*3/uL LAB HEMATOLOGY METHOD 04/05/2022 7:12 PM EST [facility] MCV 87 79 - 98 fL LAB HEMATOLOGY METHOD 04/05/2022 7:12 PM EST [facility] MCH 28.2 26.0 - 32.0 pg LAB HEMATOLOGY METHOD 04/05/2022 7:12 PM EST [facility] MCHC 32.5 30.7 - 35.5 g/dL LAB HEMATOLOGY METHOD 04/05/2022 7:12 PM EST [facility] RDW 14.2 11.5 - 14.5 % LAB HEMATOLOGY METHOD 04/05/2022 7:12 PM EST [facility] MPV 9.7 8.8 - 12.5 fL LAB HEMATOLOGY METHOD 04/05/2022 7:12 PM EST [facility] nRBC 0.0 <=0.0 per 100 WBCs LAB HEMATOLOGY METHOD 04/05/2022 7:12 PM EST [facility] Blood Venous blood specimen / Unknown Venipuncture / Unknown 04/05/2022 6:57 PM EST 04/05/2022 7:04 PM EST us [place] [facility] LAB BLOOD ORDERABLES Final Result [facility] [address] [place] [id number] * TEG Global Hemostasis with Lysis (04/05/2022 6:57 PM EST) R, Lysis 4.7 4.6 - 9.0 min 04/05/2022 8:11 PM EST [facility] MA, Rapid, Lysis 63.8 52.0 - 70.0 mm 04/05/2022 8:11 PM EST [facility] MA, Fibrinogen, Lysis 24.6 15.0 - 32.0 mm 04/05/2022 8:11 PM EST [facility] LY30 0.4 0.0 - 2.6 % 04/05/2022 8:11 PM EST [facility] Blood Venous blood specimen / Unknown Venipuncture / Unknown 04/05/2022 6:57 PM EST 04/05/2022 7:09 PM EST us Aquilino Osuna MD LAB BLOOD ORDERABLES Final Result Performing Organization Address City/[facility] Co de Phone Number [facility] [address] [place] [address] * (ABNORMAL) POCT glucose meter (04/05/2022 6:56 PM EST) POCT Glucose 142(H) 74 - 99 mg/dL 04/05/2022 7:00 PM EST [facility] Comment:Accuracy of a glucos e result obtained from a capillary whole blood specimen relies upon adequate, non-compromised capillary blood flow. If the capillary glucose result is not consistent with the patient's clinical signs and symptoms, glucose testing should be repeated with either an arterial or venous sample on the glucometer or sent to the main labortory for testing. Comment 04/05/2022 7:00 PM EST [facility] Water Mangle Tender ID Tamara Chavez 7:00 PM EST [facility] Device ID [id number] 04/05/2022 7:00 PM EST [facility] Specimen Type POC Arterial 04/05/2022 7:00 PM EST [facility] Blood Arterial blood specimen / Unknown 04/05/2022 6:56 PM EST 04/05/2022 7:00 PM EST us Greg Juarez MD LAB POINT OF CARE TE ST DOCKED DEVICE UNSOLICITED RESULTS Final Result Performing Organization Address City/[facility]/ZIP Co de Phone Number [facility] [address] [place] [address] * ECG Adult - Upon Admissoin to CVICU (04/05/2022 6:45 PM EST) EKG DIAGNOSIS CLASS Abnormal MUSE ECG Ventricular Rate 79 BPM MUSE ECG Atrial Rate 79 BPM MUSE ECG FL Interval 160 ms MUSE ECG QRSD Interval 94 ms MUSE ECG QT Interval 520 ms MUSE ECG QTC Interval 596 ms MUSE ECG P [place] 56 degrees MUSE ECG R [place] -2 degrees MUSE ECG T Wave [place] 95 degrees MUSE ECG Diagnosis Normal sinus rhythm MUSE ECG Diagnosis Lateral infarct MUSE ECG Diagnosis , age undetermined MUSE ECG Diagnosis Prolonged QT MUSE ECG Diagnosis Confirmed by Rakan Abbott ([id number]) on 04/06/2022 1:29:53 PM MUSE ECG 04/05/2022 6:45 PM EST 04/06/2022 1:29 PM EST us [place] MAR[place]O ECG ORDERABLES Final Resul t MUSE ECG * (ABNORMAL) POCT arterial blood gas gem (04/05/2022 5:31 PM EST) pH, Arterial 7.36 7.31 - 7.42 04/05/2022 5:35 PM EST [facility] pCO2, Arterial 35 32 - 45 mm Hg 04/05/2022 5:35 PM EST [facility] pO2, Arterial 105 >80 mm Hg 04/05/2022 5:35 PM EST [facility] SO2, Arterial 99(H) 94 - 98 % 04/05/2022 5:35 PM EST [facility] Base Excess, Arterial -5.1(L) -2 - 3 mmol/L 04/05/2022 5:35 PM EST [facility] HCO3, Arterial 19.8(L) 22 - 26 mmol/L 04/05/2022 5:35 PM EST [facility] Total Hemoglobin, Arterial, Whole Blood 8.4(L) 11.2 - 15.7 g/dL 04/05/2022 5:35 PM EST [facility] Hematocrit, Arterial 25.0(L) 34.0 - 45.0 % 04/05/2022 5:35 PM EST [facility] Sodium, Arterial 141 136 - 145 mmol/L 04/05/2022 5:35 PM EST [facility] Potassium, Arterial 3.7 3.6 - 4.9 mmol/L 04/05/2022 5:35 PM EST [facility] Chloride, Whole Blood 111(H) 97 - 107 mmol/L 04/05/2022 5:35 PM EST [facility] Glucose, Arterial 147(H) 74 - 99 mg/dL 04/05/2022 5:35 PM EST [facility] Ionized Calcium, Arterial 4.7 4.6 - 5.1 mg/dL 04/05/2022 5:35 PM EST [facility] Lactate, Arterial 2.3(H) 0.5 - 1.6 mmol/L 04/05/2022 5:35 PM EST [facility] Body Temperature 37.0 Celsius 04/05/2022 5:35 PM EST [facility] pH, Temp Corrected, Arterial 7.36 7.31 - 7.42 04/05/2022 5:35 PM EST [facility] pCO2, Temp Corrected, Arterial 35 32 - 45 mm Hg 04/05/2022 5:35 PM EST [facility] pO2, Temp Corrected, Arterial 105 >80 mm Hg 04/05/2022 5:35 PM EST [facility] Water Mangle Tender ID Cindy Silverio 04/05/2022 5:35 PM EST [facility] Comment:Performed at Point o f Care Arterial blood specimen (specimen) Whole blood specimen / Unknown 04/05/2022 5:31 PM EST 04/05/2022 5:35 PM EST us Greg Juarez MD LAB POINT OF CARE TE ST DOCKED DEVICE UNSOLICITED RESULTS Final Result [facility] [address] [place] [id number] * (ABNORMAL) POCT arterial blood gas gem (04/05/2022 4:39 PM EST) pH, Arterial 7.29(L) 7.31 - 7.42 04/05/2022 4:45 PM EST [facility] pCO2, Arterial 42 32 - 45 mm Hg 04/05/2022 4:45 PM EST [facility] pO2, Arterial 103 >80 mm Hg 04/05/2022 4:45 PM EST [facility] SO2, Arterial 99(H) 94 - 98 % 04/05/2022 4:45 PM [facility] Base Excess, Arterial -5.9(L) -2 - 3 mmol/L 04/05/2022 4:45 PM [facility] HCO3, Arterial 20.2(L) 22 - 26 mmol/L 04/05/2022 4:45 PM [facility] Total Hemoglobin, Arterial, Whole Blood 7.5(L) 11.2 - 15.7 g/dL 04/05/2022 4:45 PM [facility] Hematocrit, Arterial 23.0(L) 34.0 - 45.0 % 04/05/2022 4:45 PM [facility] Sodium, Arterial 140 136 - 145 mmol/L 04/05/2022 4:45 PM [facility] Potassium, Arterial 3.9 3.6 - 4.9 mmol/L 04/05/2022 4:45 PM [facility] Chloride, Whole Blood 110(H) 97 - 107 mmol/L 04/05/2022 4:45 PM [facility] Glucose, Arterial 154(H) 74 - 99 mg/dL 04/05/2022 4:45 PM [facility] Ionized Calcium, Arterial 4.8 4.6 - 5.1 mg/dL 04/05/2022 4:45 PM [facility] Lactate, Arterial 2.6(H) 0.5 - 1.6 mmol/L 04/05/2022 4:45 PM [facility] Body Temperature 37.0 Celsius 04/05/2022 4:45 PM [facility] pH, Temp Corrected, Arterial 7.29(L) 7.31 - 7.42 04/05/2022 4:45 PM [facility] pCO2, Temp Corrected, Arterial 42 32 - 45 mm Hg 04/05/2022 4:45 PM [facility] pO2, Temp Corrected, Arterial 103 >80 mm Hg 04/05/2022 4:45 PM [facility] Water Mangle Tender ID Cindy Silverio 04/05/2022 4:45 PM [facility] Comment:Performed at Point o f Care Arterial blood specimen (specimen) Whole blood specimen / Unknown 04/05/2022 4:39 PM EST 04/05/2022 4:45 PM EST us Greg Juarez MD LAB POINT OF CARE TE ST DOCKED DEVICE UNSOLICITED RESULTS Final Result Performing Organization Address [facility] Phone Number [facility] [address] [place] [address] * POCT ACT (04/05/2022 4:38 PM EST) Pathologist [facility] ACT+ (High Range) 111 68 - 600 seconds 04/09/2022 10:31 PM EST [facility] Water Mangle Tender ID Jose Collier 04/09/2022 10:31 PM EST [facility] ACT Device ID [id number] 04/09/2022 10:31 PM EST [facility] Comment 04/09/2022 10:31 PM EST [facility] Comment: ACT performed by staff at point of care. ??Results are reported immediately to the physician or primary caregiver. The activated clotting time is performed on patients with diverse clinical characteristics and treatment histories. ??Therefore, expected values are variable and results must be interpreted in the context of each individual patient. Whole blood specimen (specimen) Venous blood specimen / Unknown 04/05/2022 4:38 PM EST 04/09/2022 10:31 PM EST Greg Juarez MD LAB POINT OF CARE TE ST DOCKED DEVICE UNSOLICITED RESULTS Final Result Performing Organization Address [facility] Phone Number [facility] [address] [place] [address] * (ABNORMAL) POCT arterial blood gas gem (04/05/2022 3:32 PM EST) pH, Arterial 7.40 7.31 - 7.42 04/05/2022 3:35 PM EST [facility] pCO2, Arterial 34 32 - 45 mm Hg 04/05/2022 3:35 PM EST [facility] pO2, Arterial 262 >80 mm Hg 04/05/2022 3:35 PM EST [facility] SO2, Arterial 99(H) 94 - 98 % 04/05/2022 3:35 PM EST [facility] Base Excess, Arterial -3.3(L) -2 - 3 mmol/L 04/05/2022 3:35 PM EST [facility] HCO3, Arterial 21.1(L) 22 - 26 mmol/L 04/05/2022 3:35 PM [facility] Total Hemoglobin, Arterial, Whole Blood 7.3(L) 11.2 - 15.7 g/dL 04/05/2022 3:35 PM [facility] Hematocrit, Arterial 22.0(L) 34.0 - 45.0 % 04/05/2022 3:35 PM [facility] Sodium, Arterial 138 136 - 145 mmol/L 04/05/2022 3:35 PM [facility] Potassium, Arterial 4.5 3.6 - 4.9 mmol/L 04/05/2022 3:35 PM [facility] Chloride, Whole Blood 108(H) 97 - 107 mmol/L 04/05/2022 3:35 PM [facility] Glucose, Arterial 228(H) 74 - 99 mg/dL 04/05/2022 3:35 PM [facility] Ionized Calcium, Arterial 4.8 4.6 - 5.1 mg/dL 04/05/2022 3:35 PM [facility] Lactate, Arterial 0.9 0.5 - 1.6 mmol/L 04/05/2022 3:35 PM [facility] Body Temperature 37.0 Celsius 04/05/2022 3:35 PM [facility] pH, Temp Corrected, Arterial 7.40 7.31 - 7.42 04/05/2022 3:35 PM [facility] pCO2, Temp Corrected, Arterial 34 32 - 45 mm Hg 04/05/2022 3:35 PM [facility] pO2, Temp Corrected, Arterial 262 >80 mm Hg 04/05/2022 3:35 PM [facility] Water Mangle Tender ID Harjinder Keller 04/05/2022 3:35 PM [facility] Comment:Performed at Point o f Care Arterial blood specimen (specimen) Whole blood specimen / Unknown 04/05/2022 3:32 PM EST 04/05/2022 3:35 PM EST us Greg Juarez MD LAB POINT OF CARE TE ST DOCKED DEVICE UNSOLICITED RESULTS Final Result Performing Organization Address City/State/[facility] Co de Phone Number [facility] [address] [place] [phone] * POCT ACT (04/05/2022 3:31 PM EST) ACT+ (High Range) 592 68 - 600 seconds 04/09/2022 10:31 PM EST [facility] Water Mangle Tender ID Harjinder Keller 04/09/2022 10:31 PM EST [facility] ACT Device ID [id number] 04/09/2022 10:31 PM EST [facility] Whole blood specimen (specimen) Venous blood specimen / Unknown 04/05/2022 3:31 PM EST 04/09/2022 10:31 PM EST us Greg Juarez MD LAB POINT OF CARE TE ST DOCKED DEVICE UNSOLICITED RESULTS Final Result [facility] [address] [place], [place] [id number] * (ABNORMAL) POCT arterial blood gas gem (04/05/2022 3:09 PM EST) pH, Arterial 7.34 7.31 - 7.42 04/05/2022 3:15 PM EST [facility] pCO2, Arterial 43 32 - 45 mm Hg 04/05/2022 3:15 PM EST [facility] pO2, Arterial 496 >80 mm Hg 04/05/2022 3:15 PM EST [facility] SO2, Arterial 100(H) 94 - 98 % 04/05/2022 3:15 PM EST [facility] Base Excess, Arterial -2.4(L) -2 - 3 mmol/L 04/05/2022 3:15 PM EST [facility] HCO3, Arterial 23.2 22 - 26 mmol/L 04/05/2022 3:15 PM EST [facility] Total Hemoglobin, Arterial, Whole Blood 7.2(L) 11.2 - 15.7 g/dL 04/05/2022 3:15 PM EST [facility] Hematocrit, Arterial 22.0(L) 34.0 - 45.0 % 04/05/2022 3:15 PM EST [facility] Sodium, Arterial 136 136 - 145 mmol/L 04/05/2022 3:15 PM EST [facility] Potassium, Arterial 5.3(H) 3.6 - 4.9 mmol/L 04/05/2022 3:15 PM EST [facility] Chloride, Whole Blood 108(H) 97 - 107 mmol/L 04/05/2022 3:15 PM EST [facility] Glucose, Arterial 260(H) 74 - 99 mg/dL 04/05/2022 3:15 PM EST [facility] Ionized Calcium, Arterial 4.8 4.6 - 5.1 mg/dL 04/05/2022 3:15 PM EST [facility] Lactate, Arterial 0.7 0.5 - 1.6 mmol/L 04/05/2022 3:15 PM EST [facility] Body Temperature 37.0 Celsius 04/05/2022 3:15 PM EST [facility] pH, Temp Corrected, Arterial 7.34 7.31 - 7.42 04/05/2022 3:15 PM EST [facility] pCO2, Temp Corrected, Arterial 43 32 - 45 mm Hg 04/05/2022 3:15 PM EST [facility] pO2, Temp Corrected, Arterial 496 >80 mm Hg 04/05/2022 3:15 PM EST [facility] Water Mangle Tender ID Harjinder Keller 04/05/2022 3:15 PM EST [facility] Comment:Performed at Point o f Care Arterial blood specimen (specimen) Whole blood specimen / Unknown 04/05/2022 3:09 PM EST 04/05/2022 3:15 PM EST Greg Juarez MD LAB POINT OF CARE TE ST DOCKED DEVICE UNSOLICITED RESULTS Final Result Performing Organization Address City/State/[facility] Phone Number [facility] [address] [place] [address] * POCT ACT (04/05/2022 3:08 PM EST) ACT+ (High Range) 519 68 - 600 seconds 04/09/2022 10:31 PM EST [facility] Water Mangle Tender ID Harjinder Keller 04/09/2022 10:31 PM EST [facility] ACT Device ID [id number] 04/09/2022 10:31 PM EST [facility] Whole blood specimen (specimen) Venous blood specimen / Unknown 04/05/2022 3:08 PM EST 04/09/2022 10:31 PM EST us Greg Juarez MD LAB POINT OF CARE TE ST DOCKED DEVICE UNSOLICITED RESULTS Final Result [facility] [address] [place] [address] * (ABNORMAL) POCT arterial blood gas gem (04/05/2022 2:37 PM EST) pH, Arterial 7.29(L) 7.31 - 7.42 04/05/2022 2:40 PM EST [facility] pCO2, Arterial 50(H) 32 - 45 mm Hg 04/05/2022 2:40 PM EST [facility] pO2, Arterial 134 >80 mm Hg 04/05/2022 2:40 PM EST [facility] SO2, Arterial 99(H) 94 - 98 % 04/05/2022 2:40 PM EST [facility] Base Excess, Arterial -2.9(L) -2 - 3 mmol/L 04/05/2022 2:40 PM EST [facility] HCO3, Arterial 24.0 22 - 26 mmol/L 04/05/2022 2:40 PM EST [facility] Total Hemoglobin, Arterial, Whole Blood 11.1(L) 11.2 - 15.7 g/dL 04/05/2022 2:40 PM EST [facility] Hematocrit, Arterial 33.0(L) 34.0 - 45.0 % 04/05/2022 2:40 PM EST [facility] Sodium, Arterial 140 136 - 145 mmol/L 04/05/2022 2:40 PM EST [facility] Potassium, Arterial 4.4 3.6 - 4.9 mmol/L 04/05/2022 2:40 PM EST [facility] Chloride, Whole Blood 107 97 - 107 mmol/L 04/05/2022 2:40 PM EST [facility] Glucose, Arterial 115(H) 74 - 99 mg/dL 04/05/2022 2:40 PM EST [facility] Ionized Calcium, Arterial 5.0 4.6 - 5.1 mg/dL 04/05/2022 2:40 PM EST [facility] Lactate, Arterial 0.6 0.5 - 1.6 mmol/L 04/05/2022 2:40 PM EST [facility] Body Temperature 37.0 Celsius 04/05/2022 2:40 PM EST [facility] pH, Temp Corrected, Arterial 7.29(L) 7.31 - 7.42 04/05/2022 2:40 PM EST [facility] pCO2, Temp Corrected, Arterial 50(H) 32 - 45 mm Hg 04/05/2022 2:40 PM EST [facility] pO2, Temp Corrected, Arterial 134 >80 mm Hg 04/05/2022 2:40 PM EST [facility] Water Mangle Tender ID Cindy Silverio 04/05/2022 2:40 PM EST [facility] Comment:Performed at Point o f Care Arterial blood specimen (specimen) Whole blood specimen / Unknown 04/05/2022 2:37 PM EST 04/05/2022 2:40 PM EST Greg Juarez MD LAB POINT OF CARE TE ST DOCKED DEVICE UNSOLICITED RESULTS Final Result Performing Organization Address City/[facility] Co de Phone Number [facility] [address] [place] [address] * POCT ACT (04/05/2022 2:35 PM EST) ACT+ (High Range) 598 68 - 600 seconds 04/09/2022 10:31 PM EST [facility] Water Mangle Tender ID Harjinder Keller 04/09/2022 10:31 PM EST [facility] ACT Device ID [id number] 04/09/2022 10:31 PM EST [facility] Whole blood specimen (specimen) Venous blood specimen / Unknown 04/05/2022 2:35 PM EST 04/09/2022 10:31 PM EST us Greg Juarez MD LAB POINT OF CARE TE ST DOCKED DEVICE UNSOLICITED RESULTS Final Result [facility] [address] [place] [address] * TEG Global Hemostasis with Lysis (04/05/2022 1:01 PM EST) R, Lysis 4.7 4.6 - 9.0 min 04/05/2022 2:04 PM EST [facility], Rapid, Lysis 65.8 52.0 - 70.0 mm 04/05/2022 2:04 PM EST [facility] MA, Fibrinogen, Lysis 29.4 15.0 - 32.0 mm 04/05/2022 2:04 PM EST [facility] LY30 0.5 0.0 - 2.6 % 04/05/2022 2:04 PM EST [facility] Blood Arterial blood specimen / Unknown 04/05/2022 1:01 PM EST 04/05/2022 1:08 PM EST Comment:Pre-op diagnosis: CAD us Greg Juarez MD LAB BLOOD ORDERABLES Final R esult [facility] [address] [place] [id number] * (ABNORMAL) POCT arterial blood gas gem (04/05/2022 12:50 PM EST) pH, Arterial 7.37 7.31 - 7.42 04/05/2022 12:55 PM EST [facility] pCO2, Arterial 42 32 - 45 mm Hg 04/05/2022 12:55 PM EST [facility] pO2, Arterial 241 >80 mm Hg 04/05/2022 12:55 PM EST [facility] SO2, Arterial 99(H) 94 - 98 % 04/05/2022 12:55 PM EST [facility] Base Excess, Arterial -1.0 -2 - 3 mmol/L 04/05/2022 12:55 PM EST [facility] HCO3, Arterial 24.3 22 - 26 mmol/L 04/05/2022 12:55 PM EST [facility] Total Hemoglobin, Arterial, Whole Blood 11.6 11.2 - 15.7 g/dL 04/05/2022 12:55 PM EST [facility] Hematocrit, Arterial 35.0 34.0 - 45.0 % 04/05/2022 12:55 PM EST [facility] Sodium, Arterial 140 136 - 145 mmol/L 04/05/2022 12:55 PM EST [facility] Potassium, Arterial 4.1 3.6 - 4.9 mmol/L 04/05/2022 12:55 PM EST [facility] Chloride, Whole Blood 106 97 - 107 mmol/L 04/05/2022 12:55 PM EST [facility] Glucose, Arterial 94 74 - 99 mg/dL 04/05/2022 12:55 PM EST [facility] Ionized Calcium, Arterial 4.9 4.6 - 5.1 mg/dL 04/05/2022 12:55 PM EST [facility] Lactate, Arterial 0.6 0.5 - 1.6 mmol/L 04/05/2022 12:55 PM EST [facility] Body Temperature 37.0 Celsius 04/05/2022 12:55 PM EST [facility] pH, Temp Corrected, Arterial 7.37 7.31 - 7.42 04/05/2022 12:55 PM EST [facility] pCO2, Temp Corrected, Arterial 42 32 - 45 mm Hg 04/05/2022 12:55 PM EST [facility] pO2, Temp Corrected, Arterial 241 >80 mm Hg 04/05/2022 12:55 PM EST [facility] Water Mangle Tender ID Cindy Silverio 04/05/2022 12:55 PM EST [facility] Comment:Performed at Point o f Care Arterial blood specimen (specimen) Whole blood specimen / Unknown 04/05/2022 12:50 PM EST 04/05/2022 12:55 PM EST Greg Juarez MD LAB POINT OF CARE TE ST DOCKED DEVICE UNSOLICITED RESULTS Final Result Performing Organization Address City/State/[facility] Co de Phone Number [facility] [address] [place] [address] * POCT ACT (04/05/2022 12:49 PM EST) ACT+ (High Range) 113 68 - 600 seconds 04/09/2022 10:31 PM EST [facility] Water Mangle Tender ID Ang Dill 04/09/2022 10:31 PM EST [facility] ACT Device ID [id number] 04/09/2022 10:31 PM EST [facility] Comment 04/09/2022 10:31 PM EST [facility] Comment: ACT performed by staff at point of care. ??Results are reported immediately to the physician or primary caregiver. The activated clotting time is performed on patients with diverse clinical characteristics and treatment histories. ??Therefore, expected values are variable and results must be interpreted in the context of each individual patient. Whole blood specimen (specimen) Venous blood specimen / Unknown 04/05/2022 12:49 PM EST 04/09/2022 10:31 PM EST us Greg Juarez MD LAB POINT OF CARE TE ST DOCKED DEVICE UNSOLICITED RESULTS Final Result Performing Organization Address City/[facility]/ZIP Co de Phone Number [facility] [address] [place] [address] * Type and Screen (04/05/2022 11:12 AM EST) ABO/Rh O Negative 04/05/2022 11:00 AM EST [facility] BLOOD BANK Antibody Screen Negative 04/05/2022 11:00 AM EST BLOOD BANK Specimen Expiration 04/08/2022 23:59 04/05/2022 11:00 AM EST BLOOD BANK Blood Venous blood specimen / Unknown Venipuncture / Unknown 04/05/2022 11:12 AM EST 04/05/2022 11:21 AM EST Greg Juarez MD LAB BLOOD BANK TEST ORDERABL ES Final Result Performing Organization Address [facility] de Phone Number BLOOD BANK [address] [place] [address] documented in this encounter Visit Diagnoses Diagnosis CAD, multiple vessel- Primary Acute respiratory failure with hypoxia and hypercapnia (CMS/HCC) 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 Coronary artery disease Coronary atherosclerosis of unspecified type of vessel, [place] or graft Respiratory failure with hypoxia and hypercapnia (CMS/HCC) Leukocytosis Leukocytosis, unspecified Hyperkalemia Hyperpotassemia Ileus (CMS/HCC) Paralytic ileus Physical deconditioning Muscular wasting and disuse atrophy, not elsewhere classified documented in this encounter Admitting Diagnoses Diagnosis CAD, multiple vessel documented in this encounter Administered Medications Inactive Administered Medications - up to 3 most recent administrations Medication Order MAR Action Action Date Dose Rate Site acetaminophen (Tylenol) tablet 650 mg 650 mg, Oral, Every 4 hours PRN, Starting on Mon04/05/22 at 1820, Until Mon04/07/22 at 0803, Routine, Recovery(Phase II-Outpatient)/On Unit(Inpatient), mild pain, fever, mild pain or temp >38.6 Given 04/06/2022 2:20 PM EST 650 mg Given 04/06/2022 8:01 AM EST 650 mg acetaminophen (Tylenol) tablet 650 mg 650 mg, Oral, Every 6 hours scheduled, First dose (after last modification) on Mon04/07/22 at 1200, Until Discontinued, Routine Given 04/12/2022 5:29 AM EST 650 mg Given 04/11/2022 11:37 PM EST 650 mg Given 04/11/2022 6:32 PM EST 650 mg acetaminophen (Tylenol) tablet 650 mg 650 mg, Oral, Every 6 hours PRN, Starting on Mon04/12/22 at 0700, Until Mon04/14/22 at 1815, Routine, mild pain amiodarone (Nexterone) 360 MG/200ML infusion 1 mg/min (33.3333 mL/hr, rounded to 33.3 mL/hr), 1.8 mg/mL, Intravenous, Continuous, Starting on Mon04/07/22 at 0615, Until Mon04/07/22 at 1034, Routine New Bag 04/07/2022 6:31 AM EST 1 mg/min 33.3 mL/hr amiodarone (Nexterone) 360 MG/200ML infusion 1 mg/min (33.3333 mL/hr, rounded to 33.3 mL/hr), 1.8 mg/mL, Intravenous, Continuous, Starting on Mon04/08/22 at 0145, Until Mon04/08/22 at 0822, Routine New Bag 04/08/2022 7:02 AM EST 1 mg/min 33.3 mL/hr Rate/Dose Verify 04/08/2022 5:00 AM EST 1 mg/min 33.3 mL /hr Rate/Dose Verify 04/08/2022 4:00 AM EST 1 mg/min 33.3 mL /hr amiodarone (Nexterone) 360 MG/200ML infusion 0.5 mg/min (16.6667 mL/hr, rounded to 16.67 mL/hr), 1.8 mg/mL, Intravenous, Continuous, Starting on Mon04/08/22 at 0823, Until Mon04/09/22 at 0159, Routine Rate/Dose Verify 04/09/2022 12:00 AM EST 0.5 mg/min 16.67 mL/hr Rate/Dose Verify 04/08/2022 11:00 PM EST 0.5 mg/min 16.67 mL/hr Rate/Dose Verify 04/08/2022 10:00 PM EST 0.5 mg/min 16.67 mL/hr amiodarone (Nexterone) 360 MG/200ML infusion 0.5 mg/min (16.6667 mL/hr, rounded to 16.67 mL/hr), 1.8 mg/mL, Intravenous, Continuous, Starting on 04/09/22 at 0315, Until 04/09/22 at 0846, Routine Rate/Dose Verify 04/09/2022 9:00 AM EST 0.5 mg/min 16.67 mL/hr Rate/Dose Verify 04/09/2022 8:00 AM EST 0.5 mg/min 16.67 m L/hr Rate/Dose Verify 04/09/2022 7:00 AM EST 0.5 mg/min 16.67 m L/hr amiodarone (Nexterone) IVPB 150 mg 150 mg, Intravenous, Once, 1 dose, On [facility] 04/07/22 at 0615, Routine New Bag 04/07/2022 6:14 AM EST 150 mg 600 mL/hr amiodarone (Nexterone) IVPB 150 mg 150 mg, Intravenous, Once, 1 dose, On [facility] 04/07/22 at 1415, Routine New Bag 04/07/2022 2:19 PM EST 150 mg 600 mL/hr amiodarone (Nexterone) IVPB 150 mg 150 mg, Intravenous, Once, 1 dose, On [facility] 04/07/22 at 1730, Routine New Bag 04/07/2022 6:00 PM EST 150 mg 600 mL/hr amiodarone (Nexterone) IVPB 150 mg 150 mg, Intravenous, Once, 1 dose, On Mon04/08/22 at 0015, Routine New Bag 04/08/2022 12:24 AM EST 150 mg 600 mL/hr amiodarone (Nexterone) IVPB 150 mg 150 mg, Intravenous, Once, 1 dose, On Mon04/08/22 at 0145, Routine New Bag 04/08/2022 1:50 AM EST 150 mg 600 mL/hr amiodarone (Nexterone) IVPB 150 mg 150 mg, Intravenous, Once, 1 dose, On 04/09/22 at 0315, Routine Restarted 04/09/2022 4:00 AM EST 600 mL/hr New Bag 04/09/2022 3:30 AM EST 150 mg 600 mL/hr aspirin chewable tablet 81 mg 81 mg, Oral, Daily, First dose (after last modification) on Mon04/06/22 at 0900, Until Discontinued, Routine, Recovery(Phase II-Outpatient)/On Unit(Inpatient) Given 04/14/2022 8:54 AM EST 81 mg Given 04/13/2022 8:42 AM EST 81 mg Given 04/12/2022 8:12 AM EST 81 mg atorvastatin (Lipitor) tablet 80 mg 80 mg, Oral, Nightly, First dose on Mon04/05/22 at 2100, Until Discontinued, Routine, Recovery(Phase II-Outpatient)/On Unit(Inpatient) Given 04/13/2022 8:04 PM EST 80 mg Given 04/12/2022 8:16 PM EST 80 mg Given 04/11/2022 8:23 PM EST 80 mg bisacodyl (Dulcolax) suppository 10 mg 10 mg, Rectal, Once, 1 dose, On 04/09/22 at 1045, Routine Given 04/09/2022 11:21 AM EST 10 mg calcium carbonate (Tums) chewable tablet 500 mg 500 mg, Oral, 4 times daily PRN, Starting on [place] 04/07/22 at 0232, Until [place] 04/14/22 at 1815, Routine, indigestion, heartburn Given 04/13/2022 11:58 PM EST 500 m g Given 04/12/2022 8:12 AM EST 500 mg Given 04/07/2022 2:54 AM EST 500 mg ceFAZolin (Ancef) injection 2 g 2 g, Intravenous, Every 8 hours, 3 doses, First dose on Mon04/06/22 at 0100, Last dose on Mon04/06/22 at 1700, Routine, Recovery(Phase II-Outpatient)/On Unit(Inpatient) Given 04/06/2022 5:44 PM EST 2 g Given 04/06/2022 9:24 AM EST 2 g Given 04/06/2022 12:25 AM EST 2 g colchicine tablet 0.6 mg 0.6 mg, Oral, Daily, 10 doses, First dose on Mon04/08/22 at 0730, Last dose on Mon04/17/22 at 0900, Routine Given 04/14/2022 8:54 AM EST 0.6 mg Given 04/13/2022 8:42 AM EST 0.6 mg Given 04/12/2022 8:12 AM EST 0.6 mg digoxin (Lanoxin) 125 mcg in sodium chloride 0.9% 100 mL IVPB 125 mcg, Intravenous, Every 6 hours, 4 doses, First dose on Mon04/07/22 at 1700, Last dose on Mon04/08/22 at 1100, Routine New Bag 04/08/2022 5:23 AM EST 125 mcg 221 mL/ hr New Bag 04/07/2022 10:42 PM EST 125 mcg 221 mL/hr New Bag 04/07/2022 5:19 PM EST 125 mcg 221 mL/hr digoxin (Lanoxin) 250 mcg in sodium chloride 0.9% 100 mL IVPB 250 mcg, Intravenous, Once, 1 dose, On [place] 04/07/22 at 1100, Routine New Bag 04/07/2022 12:02 PM EST 250 mcg 222 mL/hr digoxin (Lanoxin) 250 mcg in sodium chloride 0.9% 100 mL IVPB 250 mcg, Intravenous, Once, 1 dose, On Mon04/08/22 at 0730, STAT New Bag 04/08/2022 7:50 AM EST 250 mcg 222 mL/hr digoxin (Lanoxin) tablet 125 mcg 125 mcg, Oral, Daily, First dose on Mon04/08/22 at 1700, Until Discontinued, Routine Given 04/09/2022 9:24 AM EST 125 mcg Given 04/08/2022 5:03 PM EST 125 mcg dilTIAZem (Cardizem) 125 mg in sodium chloride 0.9% 125 mL (1 mg/mL) infusion 2.5-15 mg/hr (2.5-15 mL/hr), 1 mg/mL, 125 mL, Intravenous, Titrated, Starting on Mon04/08/22 at 1700, Until Mon04/10/22 at 2022, Routine Rate/Dose Verify 04/09/2022 6:00 AM EST 10 mg/hr 10 mL/hr Rate/Dose Verify 04/09/2022 5:00 AM EST 10 mg/hr 10 mL/h r New Bag 04/09/2022 4:00 AM EST 10 mg/hr 10 mL/hr dilTIAZem (Cardizem) bolus from bag 5 mg 5 mg, Intravenous, Every 1 hour PRN, Starting on Mon04/08/22 at 1637, Until Mon04/10/22 at 2023, Administer over 2 Minutes, Routine, Heart rate > 110 Bolus from Bag 04/08/2022 11:30 PM EST 5 mg Bolus from Bag 04/08/2022 9:45 PM EST 5 mg Bolus from Bag 04/08/2022 7:30 PM EST 5 mg dilTIAZem (Cardizem) injection 15 mg 15 mg, Intravenous, Once, 1 dose, On Mon04/08/22 at 1700, Routine Given 04/08/2022 5:03 PM EST 15 mg docusate sodium (Colace) capsule 100 mg 100 mg, Oral, 2 times daily, First dose on Mon04/05/22 at 2100, Until Discontinued, Routine, Recovery(Phase II-Outpatient)/On Unit(Inpatient) Given 04/06/2022 9:39 PM EST 100 mg Given 04/06/2022 9:24 AM EST 100 mg docusate sodium (Colace) capsule 200 mg 200 mg, Oral, 2 times daily, First dose (after last modification) on Mon04/07/22 at 0900, Until Discontinued, Routine, Recovery(Phase II-Outpatient)/On Unit(Inpatient) Given 04/10/2022 9:24 AM EST 200 mg Given 04/09/2022 9:35 PM EST 200 mg Given 04/09/2022 9:24 AM EST 200 mg enoxaparin (Lovenox) syringe 40 mg 40 mg, Subcutaneous, Daily, First dose on Mon04/06/22 at 1800, Until Discontinued, Routine, Recovery(Phase II-Outpatient)/On Unit(Inpatient) Given 04/06/2022 5:43 PM EST 40 mg Left Upper Abdomen furosemide (Lasix) injection 20 mg 20 mg, Intravenous, Once, 1 dose, On Mon04/08/22 at 1300, Routine Given 04/08/2022 1:01 PM EST 20 mg furosemide (Lasix) injection 20 mg 20 mg, Intravenous, Once, 1 dose, On Mon04/09/22 at 1045, Routine Given 04/09/2022 11:20 AM EST 20 mg furosemide (Lasix) injection 20 mg 20 mg, Intravenous, Once, 1 dose, On 04/10/22 at 0930, Routine Given 04/10/2022 9:24 AM EST 20 mg furosemide (Lasix) injection 40 mg 40 mg, Intravenous, Once, 1 dose, On Mon04/06/22 at 0945, Routine Given 04/06/2022 9:32 AM EST 40 mg furosemide (Lasix) injection 40 mg 40 mg, Intravenous, Once, 1 dose, On [place] 04/07/22 at 2230, Routine Given 04/07/2022 10:42 PM EST 40 mg furosemide (Lasix) tablet 40 mg 40 mg, Oral, Daily, 1 dose, First dose on Mon04/11/22 at 0900, Routine Given 04/11/2022 9:16 AM EST 40 mg furosemide (Lasix) tablet 40 mg 40 mg, Oral, Once, 1 dose, On Mon04/13/22 at 1245, Routine Given 04/13/2022 1:32 PM EST 40 mg heparin (porcine) injection 5,000 Units 5,000 Units, Subcutaneous, Every 8 hours, First dose on [place] 04/07/22 at 1200, Until Discontinued, Routine Given 04/14/2022 12:00 PM EST 5,000 Units Left Lower Abdomen Given 04/14/2022 4:41 AM EST 5,000 Units L eft Lower Abdomen Given 04/13/2022 8:04 PM EST 5,000 Units L eft Lower Abdomen hydrALAZINE (Apresoline) injection 10 mg 10 mg, Intravenous, Every 6 hours PRN, Starting on Mon04/11/22 at 1215, Until Mon04/11/22 at 1943, Routine, high blood pressure Given 04/11/2022 2:56 PM EST 10 mg hydrALAZINE (Apresoline) injection 10 mg 10 mg, Intravenous, Every 4 hours PRN, Starting on Mon04/11/22 at 1945, Until Mon04/13/22 at 0709, Routine, high blood pressure Given 04/13/2022 1:08 AM EST 10 mg Given 04/12/2022 12:24 AM EST 10 mg HYDROcodone-acetaminophen ([place]) 5-325 MG per tablet 5 mg of hydrocodone 5 mg of hydrocodone, Oral, Every 6 hours PRN, Starting on Mon04/13/22 at 0843, Until Mon04/14/22 at 1815, Routine, severe pain HYDROmorphone (Dilaudid) injection 0.25 mg 0.25 mg, Intravenous, Every 2 hour PRN, Starting on Mon04/05/22 at 1909, Until Mon04/07/22 at 1034, Routine, mild - moderate pain Given 04/06/2022 9:39 PM EST 0.25 mg Given 04/06/2022 5:10 AM EST 0.25 mg Given 04/06/2022 2:23 AM EST 0.25 mg HYDROmorphone (Dilaudid) injection 0.5 mg 0.5 mg, Intravenous, Every 2 hour PRN, Starting on Mon04/05/22 at 1909, Until Mon04/07/22 at 1034, Routine, severe pain Given 04/07/2022 2:36 AM EST 0.5 mg Given 04/07/2022 12:27 AM EST 0.5 mg Given 04/06/2022 5:44 PM EST 0.5 mg insulin lispro (Admelog) 100 units/mL injection - Correction - Standard Dose 0-5 Units, Subcutaneous, 3 times daily with meals, First dose on Mon04/06/22 at 0945, Until Discontinued, Routine Given 04/06/2022 10:50 AM EST 1 Units Left Upper Arm (Back ) iohexol (OMNIPaque) 9 MG/ML oral contrast 500 mL 500 mL, Oral, Once in imaging, 1 dose, Starting on Mon04/07/22 at 1046, Until Mon04/07/22 at 1151, Routine, Imaging Protocol Orders Given 04/07/2022 11:51 AM EST 500 mL ipratropium-albuterol (Duo-Neb) 0.5-2.5 mg/3 mL nebulizer solution 3 mL 3 mL, Nebulization, Every 6 hours scheduled, First dose (after last modification) on Mon04/06/22 at 0300, Until Discontinued, Routine Given 04/08/2022 8:40 PM EST 3 mL Given 04/08/2022 2:42 PM EST 3 mL Given 04/08/2022 8:45 AM EST 3 mL ipratropium-albuterol (Duo-Neb) 0.5-2.5 mg/3 mL nebulizer solution 3 mL 3 mL, Nebulization, Every 6 hours scheduled, First dose (after last modification) on Mon04/10/22 at 1200, Until Discontinued, Routine Given 04/10/2022 2:05 PM EST 3 mL ipratropium-albuterol (Duo-Neb) 0.5-2.5 mg/3 mL nebulizer solution 3 mL 3 mL, Nebulization, Every 6 hours scheduled, First dose (after last modification) on Mon04/10/22 at 2100, Until Discontinued, Routine Given 04/10/2022 8:50 PM EST 3 mL ipratropium-albuterol (Duo-Neb) 0.5-2.5 mg/3 mL nebulizer solution 3 mL 3 mL, Nebulization, Every 6 hours PRN, Starting on Mon04/11/22 at 0715, Until Mon04/14/22 at 1815, Routine, wheezing lactulose (Chronulac) 10 GM/15ML solution 20 g 20 g, Oral, 3 times daily, First dose on Mon04/07/22 at 1745, Until Discontinued, Routine Given 04/08/2022 8:21 AM EST 20 g Given 04/07/2022 9:40 PM EST 20 g Given 04/07/2022 5:56 PM EST 20 g lidocaine (Lidoderm) 5 % patch 1 patch 1 patch, Apply externally, Every 24 hours PRN, Starting on Mon04/07/22 at 1028, Until Mon04/13/22 at 0842, Administer over 12 Hours, Routine, mild pain Medication Applied 04/10/2022 9:23 AM EST 1 patch Back Medication Applied 04/09/2022 9:25 AM EST 1 patch Back Medication Applied 04/08/2022 9:39 AM EST 1 patch Back lidocaine (Xylocaine) 1 % injection 0.5 mL 0.5 mL, Intradermal, Once, 1 dose, On Mon04/05/22 at 1130, Routine, Holding - PreprocedureIndications:Local Anesthesia,IV Initiation Given 04/05/2022 11:15 AM EST 0.5 mL lisinopril tablet 5 mg 5 mg, Oral, Daily, First dose on Mon04/14/22 at 0900, Until Discontinued, Routine Given 04/14/2022 8:53 AM EST 5 mg magnesium hydroxide (Milk of Magnesia) 2400 MG/10ML suspension 10 mL 10 mL, Oral, Once, 1 dose, On 04/09/22 at 1030, Routine Given 04/09/2022 11:19 AM EST 10 mL methocarbamol (Robaxin) tablet 500 mg 500 mg, Oral, 4 times daily, First dose on Mon04/07/22 at 0900, Until Discontinued, Routine Given 04/11/2022 10:14 PM EST 500 mg Given 04/11/2022 6:32 PM EST 500 mg Given 04/11/2022 4:04 PM EST 500 mg methocarbamol (Robaxin) tablet 500 mg 500 mg, Oral, 4 times daily PRN, Starting on Mon04/12/22 at 0700, Until Mon04/14/22 at 1815, Routine, muscle spasms metoclopramide (Reglan) injection 5 mg 5 mg, Intravenous, Every 6 hours, First dose on Mon04/07/22 at 1745, Until Discontinued, Routine Given 04/10/2022 5 :07 PM EST 5 mg Given 04/10/2022 12:24 PM EST 5 mg Given 04/10/2022 5:57 AM EST 5 mg metoprolol tartrate (Lopressor) injection 5 mg 5 mg, Intravenous, Every 5 min PRN, 3 doses, Starting on Mon04/08/22 at 0440, Until Mon04/13/22 at 0842, Routine, HR >130 Given 04/08/2022 6:46 AM EST 5 mg Given 04/08/2022 5:22 AM EST 5 mg metoprolol tartrate (Lopressor) split tablet 12.5 mg 12.5 mg, Oral, Once, 1 dose, On Mon04/07/22 at 0445, Routine Given 04/07/2022 4:40 AM EST 12.5 mg metoprolol tartrate (Lopressor) tablet 25 mg 25 mg, Oral, 2 times daily, First dose on Mon04/05/22 at 2100, Until Discontinued, Routine, Recovery(Phase II-Outpatient)/On Unit(Inpatient) Given 04/06/2022 9:24 AM EST 25 mg metoprolol tartrate (Lopressor) tablet 25 mg 25 mg, Oral, 2 times daily, First dose (after last modification) on Mon04/07/22 at 1700, Until Discontinued, Routine Given 04/08/2022 8:21 AM EST 25 mg Given 04/07/2022 5:07 PM EST 25 mg metoprolol tartrate (Lopressor) tablet 25 mg 25 mg, Oral, Once, 1 dose, On Mon04/08/22 at 0930, STAT Given 04/08/2022 9:39 AM EST 25 mg metoprolol tartrate (Lopressor) tablet 50 mg 50 mg, Oral, 2 times daily, First dose on Mon04/08/22 at 2100, Until Discontinued, Routine Given 04/09/2022 9:24 AM EST 50 mg Given 04/08/2022 10:00 PM EST 50 mg metoprolol tartrate (Lopressor) tablet 75 mg 75 mg, Oral, 2 times daily, First dose (after last modification) on Mon04/09/22 at 2100, Until Discontinued, Routine Given 04/14/2022 8:54 AM EST 75 mg Given 04/13/2022 8:04 PM EST 75 mg Given 04/13/2022 8:42 AM EST 75 mg mupirocin (Bactroban) 2 % ointment 1 application Each Nostril, 2 times daily, 8 doses, First dose on Mon04/05/22 at 2100, Last dose on Mon04/09/22 at 0900, Routine Given 04/09/2022 9:24 AM EST 1 application. Given 04/08/2022 9:23 PM EST 1 application. Given 04/08/2022 8:21 AM EST 1 application. nitroglycerin (Tridil) 50 mg in 250 mL D5W (200 mcg/mL) infusion 0.2-2 mcg/kg/min ? 75.8 kg (4.548-45.48 mL/hr, rounded to 4.55-45.48 mL/hr), 200 mcg/mL, Intravenous, Titrated, Starting on Mon04/05/22 at 1945, Until [place] 04/07/22 at 0233, Routine Rate/Dose Verify 04/06/2022 8:00 AM EST 0.2 mcg/kg/min 4.55 mL/hr Rate/Dose Verify 04/06/2022 7:00 AM EST 0.2 mcg/kg/min 4.5 5 mL/hr Rate/Dose Verify 04/06/2022 6:00 AM EST 0.2 mcg/kg/min 4.5 5 mL/hr ondansetron (Zofran) injection 4 mg 4 mg, Intravenous, Every 6 hours PRN, Starting on Mon04/05/22 at 1820, Until Mon04/14/22 at 1815, Routine, Recovery(Phase II-Outpatient)/On Unit(Inpatient), nausea, vomiting Given 04/07/2022 2:36 AM EST 4 mg oxyCODONE (Roxicodone) immediate release tablet 5 mg 5 mg, Oral, Every 6 hours PRN, Starting on Mon04/06/22 at 0912, Until Mon04/13/22 at 0844, Routine, severe pain Given 04/12/2022 12:31 AM EST 5 mg Given 04/09/2022 11:21 AM EST 5 mg Given 04/08/2022 10:54 AM EST 5 mg pantoprazole (Protonix) injection 40 mg 40 mg, Intravenous, Daily, First dose on Mon04/05/22 at 1845, Until Discontinued, Routine, Recovery(Phase II-Outpatient)/On Unit(Inpatient) Given 04/05/2022 7:34 PM EST 40 mg perflutren lipid microspheres (Definity) injection 5.216 mg 5.216 mg (rounded from 5.1834 mg = 10 mcL/kg ? 79.5 kg), Intravenous, Once in imaging, 1 dose, Starting on Mon04/13/22 at 1610, Until Mon04/13/22 at 1611, Routine Given 04/13/2022 4:11 PM EST 5.216 mg phosphorus (K Phos Neutral) tablet 1 tablet 1 tablet, Oral, Every 12 hours, 2 doses, First dose on Mon04/10/22 at 0615, Last dose on Mon04/10/22 at 1815, Routine Given 04/10/2022 5:53 PM EST 1 tablet Given 04/10/2022 5:57 AM EST 1 tablet phosphorus (K Phos Neutral) tablet 1 tablet 1 tablet, Oral, Every 12 hours, 2 doses, First dose on Mon04/10/22 at 1545, Last dose on Mon04/11/22 at 0345, Routine Given 04/11/2022 3:58 AM EST 1 tablet Given 04/10/2022 5:07 PM EST 1 tablet phosphorus (K Phos Neutral) tablet 1 tablet 1 tablet, Oral, Every 8 hours, 3 doses, First dose on Mon04/12/22 at 0500, Last dose on Mon04/12/22 at 2100, Routine Given 04/12/2022 8:16 PM EST 1 tablet Given 04/12/2022 12:09 PM EST 1 tablet Given 04/12/2022 5:29 AM EST 1 tablet polyethylene glycol (Miralax) packet 17 g 17 g, Oral, Daily, First dose (after last modification) on Mon04/06/22 at 2145, Until Discontinued, Routine, Recovery(Phase II-Outpatient)/On Unit(Inpatient) Given 04/08/2022 8:21 AM EST 17 g Given 04/07/2022 9:04 AM EST 17 g Given 04/06/2022 9:39 PM EST 17 g polyethylene glycol (Miralax) packet 17 g 17 g, Oral, 2 times daily, First dose (after last modification) on 04/09/22 at 0900, Until Discontinued, Routine, Recovery(Phase II-Outpatient)/On Unit(Inpatient) Given 04/10/2022 9:23 AM EST 17 g Given 04/09/2022 9:24 AM EST 17 g polyethylene glycol (Miralax) packet 17 g 17 g, Oral, Daily PRN, Starting on Mon04/11/22 at 0730, Until [place] 04/14/22 at 1815, Routine, Recovery(Phase II-Outpatient)/On Unit(Inpatient), constipation potassium chloride (Klor-Con) packet 20 mEq 20 mEq, Oral, Once, 1 dose, On Mon04/08/22 at 1900, Routine Given 04/08/2022 7:18 PM EST 20 mEq potassium chloride CR (Klor-Con) ER tablet 20 mEq 20 mEq, Oral, Once, 1 dose, On Mon04/10/22 at 0615, Routine Given 04/10/2022 5:58 AM EST 20 mEq potassium chloride CR (Klor-Con) ER tablet 40 mEq 40 mEq, Oral, Once, 1 dose, On Mon04/11/22 at 0300, Routine Given 04/11/2022 4:00 AM EST 40 mEq potassium chloride IVPB 20 mEq 20 mEq, Intravenous, Every 1 hour, 2 doses, First dose on Mon04/05/22 at 2045, Last dose on Mon04/05/22 at 2145, Routine New Bag 04/05/2022 8:37 PM EST 20 mEq 50 mL/hr Povidone-Iodine 5 % swab solution 1 Swab Nasal, Daily, 5 doses, First dose on Mon04/05/22 at 1930, Last dose on Mon04/09/22 at 0900, Routine Given 04/09/2022 9:37 AM EST 1 Swab. Given 04/08/2022 8:21 AM EST 1 Swab. Given 04/07/2022 9:06 AM EST 1 Swab. protamine 50 mg in sodium chloride 0.9% 100 mL IVPB 50 mg, Intravenous, Once, 1 dose, On Mon04/05/22 at 1845, Administer over 30 Minutes, Routine New Bag 04/05/2022 7:45 PM EST 50 mg 230 mL /hr senna (Senokot) tablet 17.2 mg 17.2 mg, Oral, Nightly, First dose on Mon04/05/22 at 2100, Until Discontinued, Routine, Recovery(Phase II-Outpatient)/On Unit(Inpatient) Given 04/08/2022 9:22 PM EST 17.2 mg Given 04/07/2022 9:40 PM EST 17.2 mg Given 04/06/2022 9:39 PM EST 17.2 mg senna (Senokot) tablet 17.2 mg 17.2 mg, Oral, 2 times daily, First dose (after last modification) on Mon04/09/22 at 0900, Until Discontinued, Routine, Recovery(Phase II-Outpatient)/On Unit(Inpatient) Given 04/10/2022 9:23 AM EST 17.2 mg simethicone (Mylicon) chewable tablet 80 mg 80 mg, Oral, Every 6 hours PRN, Starting on Mon04/08/22 at 0126, Until Mon04/13/22 at 0842, Routine, flatulence Given 04/08/2022 5:17 AM EST 80 mg simethicone (Mylicon) chewable tablet 80 mg 80 mg, Oral, Every 6 hours PRN, Starting on Mon04/09/22 at 1015, Until [place] 04/14/22 at 1815, Routine, flatulence Given 04/10/2022 9:24 AM EST 80 mg sodium chloride 0.9 % flush 10 mL 10 mL, Intravenous, Every 12 hours, First dose on Mon04/05/22 at 2000, Until Discontinued, Routine Given 04/07/2022 8:35 PM EST 10 mL Given 04/07/2022 8:00 AM EST 10 mL Given 04/06/2022 7:58 PM EST 10 mL sodium chloride 0.9% infusion 20 mL/hr, Intravenous, Continuous, Starting on Mon04/05/22 at 1130, Until Mon04/05/22 at 2202, Routine Rate/Dose Change 04/05/2022 6:00 PM EST 90 mL/hr Rate/Dose Change 04/05/2022 5:39 PM EST 100 mL/ hr Rate/Dose Change 04/05/2022 4:17 PM EST 125 mL/ hr Sodium Phosphate-NaCl IVPB 15 mmol 15 mmol (rounded from 9.488 mmol = 0.16 mmol/kg ? 59.3 kg [place] weight), Intravenous, Once, 1 dose, On Mon04/05/22 at 2045, Routine Given 04/05/2022 9:38 PM EST 15 mmol sugammadex ([place]) 200 MG/2ML injection 200 mg 200 mg, Intravenous, Once, 1 dose, On Mon04/05/22 at 2130, Routine Given by Other 04/05/2022 9:12 PM EST 200 mg documented in this encounter Active and Recently Administered Medications Times are shown in EST. Scheduled Medication Order 04/12/2022 04/13/2022 04/14/2022 acetaminophen (Tylenol) tablet 650 mg (CANCELED) 650 mg, Oral, Every 6 hours scheduled, First dose (after last modification) on Mon04/07/22 at 1200, Until Discontinued, Routine 0529 (Given - Provider: Saba Lee RN) aspirin chewable tablet 81 mg 81 mg, Oral, Daily, First dose (after last modification) on Mon04/06/22 at 0900, Until Discontinued, Routine, Recovery(Phase II-Outpatient)/On Unit(Inpatient) 0812 (Given - Provider: Helene Cartagena RN) 0842 (Given - Provider: Holly Mari RN) 0854 (Given - Provider: Holly Mari, DARIUS) atorvastatin (Lipitor) tablet 80 mg 80 mg, Oral, Nightly, First dose on Mon04/05/22 at 2100, Until Discontinued, Routine, Recovery(Phase II-Outpatient)/On Unit(Inpatient) 2015 (Given - Provider: Rani Levy RN) 2003 (Given - Provider: Lucila Pratt RN) colchicine tablet 0.6 mg 0.6 mg, Oral, Daily, 10 doses, First dose on Mon04/08/22 at 0730, Last dose on Mon04/17/22 at 0900, Routine 0812 (Given - Provider: Helene Cartagena, DARIUS) 0842 (Given - Provider: Holly Mari RN) 0854 (Given - Provider: Holly Mari RN) docusate sodium (Colace) capsule 200 mg 200 mg, Oral, 2 times daily, First dose (after last modification) on Mon04/07/22 at 0900, Until Discontinued, Routine, Recovery(Phase II-Outpatient)/On Unit(Inpatient) 0814 (Not Given - Provider: Helene Cartagena RN - Reason: Hold for condition: must add comment - Comment: multiple BMs)2015 (Not Given - Provider: Rani Levy RN - Reason: Patient/family refused) 0846 (Not Given - Provider: Holly Mari RN - Reason: Patient/family refused)2004 (Not Given - Provider: Lucila Pratt RN - Reason: Patient/family refused) 0854 (Not Given - Provider: Holly Mari RN - Reason: Patient/family refused) furosemide (Lasix) tablet 40 mg (COMPLETED) 40 mg, Oral, Once, 1 dose, On Mon04/13/22 at 1245, Routine 1332 (Given - Provider: Holly Mari RN) heparin (porcine) injection 5,000 Units 5,000 Units, Subcutaneous, Every 8 hours, First dose on Mon04/07/22 at 1200, Until Discontinued, Routine 0411 (Given - Provider: Saba Lee RN)1209 (Given - Provider: Rani Levy RN)2015 (Given - Provider: Rani Levy RN) 0341 (Given - Provider: Lucila Pratt RN)1149 (Given - Provider: Holly Mari, DARIUS)2003 (Given - Provider: Lucila Pratt RN) 0441 (Given - Provider: Lucila Pratt RN)1200 (Given - Provider: Holly Mari RN) lisinopril tablet 5 mg 5 mg, Oral, Daily, First dose on Urszula 04/14/22 at 0900, Until Discontinued, Routine 0853 (Given - Provider: Holly Mari RN) metoprolol tartrate (Lopressor) tablet 75 mg 75 mg, Oral, 2 times daily, First dose (after last modification) on 04/09/22 at 2100, Until Discontinued, Routine 0812 (Given - Provider: Helene Cartagena RN)2015 (Given - Provider: Rani Levy RN) 0842 (Given - Provider: Holly Mari RN)2003 (Given - Provider: Lucila Pratt RN) 0854 (Given - Provider: Holly Mari RN) perflutren lipid microspheres (Definity) injection 5.216 mg (COMPLETED) 5.216 mg (rounded from 5.1834 mg = 10 mcL/kg ? 79.5 kg), Intravenous, Once in imaging, 1 dose, Starting on Mon04/13/22 at 1610, Until Mon04/13/22 at 1611, Routine 1611 (Given - Provider: Audrey Gilliam, [facility]) phosphorus (K Phos Neutral) tablet 1 tablet (COMPLETED) 1 tablet, Oral, Every 8 hours, 3 doses, First dose on Mon04/12/22 at 0500, Last dose on Mon04/12/22 at 2100, Routine 0529 (Given - Provider: Saba Lee RN)1209 (Given - Provider: Rani Levy, DARIUS)2015 (Given - Provider: Rani Levy RN) senna (Senokot) tablet 17.2 mg 17.2 mg, Oral, 2 times daily, First dose (after last modification) on 04/09/22 at 0900, Until Discontinued, Routine, Recovery(Phase II-Outpatient)/On Unit(Inpatient) 0814 (Not Given - Provider: Helene Cartagena RN - Reason: Hold for condition: must add comment - Comment: multiple BMs)2015 (Not Given - Provider: Rani Levy RN - Reason: Patient/family refused) 0846 (Not Given - Provider: Holly Mari, DARIUS - Reason: Patient/family refused)2004 (Not Given - Provider: Lucila Pratt RN - Reason: Order parameters not met) 0854 (Not Given - Provider: Holly Mari, DARIUS - Reason: Patient/family refused) PRN Medication Order 04/12/2022 04/13/2022 04/14/2022 acetaminophen (Tylenol) tablet 650 mg 650 mg, Oral, Every 6 hours PRN, Starting on Mon04/12/22 at 0700, Until Mon04/14/22 at 1815, Routine, mild pain calcium carbonate (Tums) chewable tablet 500 mg 500 mg, Oral, 4 times daily PRN, Starting on Mon04/07/22 at 0232, Until Mon04/14/22 at 1815, Routine, indigestion, heartburn 0812 (Given - Provider: Helene Cartagena RN) 2358 (Given - Provider: Lucila Pratt, DARIUS) hydrALAZINE (Apresoline) injection 10 mg (CANCELED) 10 mg, Intravenous, Every 4 hours PRN, Starting on Mon04/11/22 at 1945, Until Mon04/13/22 at 0709, Routine, high blood pressure 0024 (Given - Provider: Saba Lee RN) 0108 (Given - Provider: Lucila Pratt, DARIUS) HYDROcodone-acetaminophen ([place]) 5-325 MG per tablet 5 mg of hydrocodone 5 mg of hydrocodone, Oral, Every 6 hours PRN, Starting on Mon04/13/22 at 0843, Until Mon04/14/22 at 1815, Routine, severe pain ipratropium-albuterol (Duo-Neb) 0.5-2.5 mg/3 mL nebulizer solution 3 mL 3 mL, Nebulization, Every 6 hours PRN, Starting on Mon04/11/22 at 0715, Until Mon04/14/22 at 1815, Routine, wheezing methocarbamol (Robaxin) tablet 500 mg 500 mg, Oral, 4 times daily PRN, Starting on Mon04/12/22 at 0700, Until Mon04/14/22 at 1815, Routine, muscle spasms ondansetron (Zofran) injection 4 mg 4 mg, Intravenous, Every 6 hours PRN, Starting on Mon04/05/22 at 1820, Until Urszula 04/14/22 at 1815, Routine, Recovery(Phase II-Outpatient)/On Unit(Inpatient), nausea, vomiting oxyCODONE (Roxicodone) immediate release tablet 5 mg (CANCELED) 5 mg, Oral, Every 6 hours PRN, Starting on Mon04/06/22 at 0912, Until Mon04/13/22 at 0844, Routine, severe pain 0031 (Given - Provider: Saba Lee RN) polyethylene glycol (Miralax) packet 17 g 17 g, Oral, Daily PRN, Starting on 04/11/22 at 0730, Until Urszula 04/14/22 at 1815, Routine, Recovery(Phase II-Outpatient)/On Unit(Inpatient), constipation simethicone (Mylicon) chewable tablet 80 mg 80 mg, Oral, Every 6 hours PRN, Starting on 04/09/22 at 1015, Until Urszula 04/14/22 at 1815, Routine, flatulence documented in this encounter Additional Health Concerns Assessment Noted Time A fall risk assessment has been complete d for the patient 03/17/2022 9:15 AM EST documented as of this encounter Care Teams Guest Services Agent Relationship Specialty Start Date End Date Greg Hayward MD [address] [place] [address] PCP - General 07/17/20 Ryan Rice MD [address] [place] [address] [address], [place] [address] Referring Physician Cardiology 03/21/22 documented as of this encounter
--- OUTSIDE RECORDS SUMMARY | 2024-02-01 15:23 | XMS_ITS | Encounter Summary ---
Author Organization Healthcare Address [address] [place] [address] Care Team Providers Care Color Control Supervisor Name Role Phone Nico Hayward MD Primary Care Provider + [phone] Ryan Rice MD Unavailable [phone] Encounter Details Date Type Department Care Team (Latest Contact Info) Description 04/13/2022 Travel Social History Tobacco Use Types Packs/Day [...] Job Start Date Job End Date retired [employer] Not on file Not on file Not on file COVID-19 Exposure Response Date Recorded In the last 10 days, have khloe u been in contact with someone who was confirmed or suspected to have Coronavirus/COVID-19? No / Unsure 04/05/2022 11:04 AM EST documented as of this encounter Plan of Treatment Not on file documented as of this encounter Visit Diagnoses Not on filedocumented in this encounter Additional Health Concerns Assessment Noted Time A fall risk assessment has been complete d for the patient 03/17/2022 9:15 AM EST documented as of this encounter Care Teams Color Control Supervisor Relationship Specialty Start Date End Date Nico Hayward MD [address] [place] [address] PCP - General 07/17/20 Ryan Rice MD [address] [facility] 36[facility] [place] [address] Referring Physician Cardiology 03/21/22 documented as of this encounter
--- OUTSIDE RECORDS SUMMARY | 2024-02-01 15:24 | XMS_ITS | Encounter Summary ---
Author Organization Healthcare Address [address] [place] [address] Care Team Providers Care Solution Engineer Name Role Phone Nico Hayward MD Primary Care Provider + [phone] Ryan Rice MD Unavailable [phone] Encounter Details Date Type Department Care Team (Late st Contact Info) Description 04/11/2022 Lab Requisition [facility] [address] [place] [address] Valentin Aviles MD [address] [address] Encounter for general adult medical examination without abnormal findings Social History Tobacco Use Types Packs/Day Years [...] Procedure Name Priority Date/Time Associated Diagnosis Comments MULTI DRUG RESISTANCE TEST Routine 04/11/2022 8:00 PM EST Encounter for general adult medical examination without abnormal findings documented in this encounter Results * Multi Drug Resistance Test (04/11/2022 8:00 PM EST) Culture No growth at day 2 04/13/2022 9:20 AM EST [facility] Swab (Nares and Zoraida Rectal) 04/11/2022 8:00 PM EST 04/11/2022 9:54 PM EST us Valentin Schulz MD LAB MICROBIOLOGY - GENERAL ORDERABLES Final Result Performing Organization Address City/State/[facility] Co de Phone Number [facility] [address] [place] [address] documented in this encounter Visit Diagnoses Diagnosis Encounter for general adult medical examination without abnormal findings documented in this encounter Additional Health Concerns Assessment Noted Time A fall risk assessment has been complete d for the patient 03/17/2022 9:15 AM EST documented as of this encounter Care Teams Solution Engineer Relationship Specialty Start Date End Date Nico Hayward MD [address] [place] [address] PCP - General 07/17/20 Ryan Rice MD [address] [place] [address] Referring Physician Cardiology 03/21/22 documented as of this encounter
--- OUTSIDE RECORDS SUMMARY | 2024-02-01 15:24 | XMS_ITS | Encounter Summary ---
Author Organization Healthcare Address [address] [place] [address] Care Team Providers Care Outside Sales Professional Name Role Phone Nico Hayward MD Primary Care Provider + [phone] Ryan Rice MD Unavailable [phone] Encounter Details Date Type Department Care Team (Latest Contact Info) Description 04/07/2022 Travel Social History Tobacco Use Types Packs/Day [...] Job Start Date Job End Date retired [employer] Not on file Not on file Not [...] documented as of this encounter Care Teams Outside Sales Professional Relationship Specialty Start Date End Date Nico Hayward MD [address] [place] [address] PCP - General 07/17/20 Ryan Rice MD [address] [facility] 36[facility] [place] [address] Referring Physician Cardiology 03/21/22 documented as of this encounter
--- OUTSIDE RECORDS SUMMARY | 2024-02-01 15:24 | XMS_ITS | Encounter Summary ---
Author Organization Healthcare Address [address] [place] [address] Care Team Providers Care Hospital Intern Name Role Phone Nico Hayward MD Primary Care Provider + [phone] Ryan Rice MD Unavailable [phone] Encounter Details Date Type Department Care Team (Latest Contact Info) Description 04/05/2022 Travel Social History Tobacco Use Types Packs/Day [...] Job Start Date Job End Date retired [employer] Not on file Not on file Not [...] documented as of this encounter Care Teams Hospital Intern Relationship Specialty Start Date End Date Nico Hayward MD [address] [place] [address] PCP - General 07/17/20 Ryan Rice MD [address] [facility] [place] [address] Referring Physician Cardiology 03/21/22 documented as of this encounter
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
--- OUTSIDE RECORDS SUMMARY | 2024-02-01 15:25 | XMS_ITS | Encounter Summary ---
Author Organization Healthcare Address [address] [id number] Care Team Providers Care Processing Lead Name Role Phone Unavailable Primary Care Provider Unavailabl e Encounter Details Date Type Department Care Team (Late st Contact Info) Description 09/11/2019 6:35 AM EDT - 09/12/2019 2:10 PM EDT Hospital Encounter [facility] Inpatient [address] [place] [address] Lukas Ford MD [address] [facility] [address] [place] [address] Occlusion and stenosis of left carotid artery Social History Tobacco Use Types Packs/Day Years Used Date Smoking Tobacco: Never Assessed Comments Unknown Sex and Gender Information Value Date Recorded Sex Assigned at Female 04/13/2022 9:50 AM EST Legal Sex Female 7:35 PM EDT Gender Identity Female 04/13/2022 9:50 AM EST Sexual Orientation Straight 04/13/2022 9: 50 AM EST documented as of this encounter Miscellaneous Notes * Social Care Assessment Summary - ProviderIzzy MD - 09/12/2019 12:00 AM EDT Patient Name: EMILY HAWKINS Date of : 1955 Discharge Note Discharge Note Who Will Provide Assistance Post-Discharge? Answers: Family son, Answers: Self How Many Hours is/are the Caregiver(s) Available? Answers: 15-19 Hours Discharge Disposition Answers: Home Is Home Health Needed? If Yes, Specify Agency Name and Service Needed. Answers: No Is DME Needed? If Yes, Select Type of Equipment Needed and DME Company. Answers: No DME Needs I Certify that the Patient has been Provided with a Choice for DME, Home Health, Infusion Services and Facility. Answers: Not Applicable Is This a High-Risk LACE Patient? Answers: No Follow Up Appointments Scheduled? Answers: Other lens and frames prescription clerk/pod to schedule Does the Patient Have Transportation to Follow up Appointments? Answers: Yes Scholarship? Answers: No PETER? Answers: No Medicare Second Notice? Answers: Not applicable Were Services Declined? Answers: No Additional Comments: Notes: SW met w/ NeuroSurgery to discuss pts plan of care, per team patient is PPD#1 Left ICA stenting and medically appropriate for discharge home today. SW met w/ patient and daughter Lizy at bedside for initial assessment, confirmed address of [address] [place] [address] in [place], [place]. Lives with son. EC/NOK is daughter Lizy Raza [phone]. They report Lizy is her medical + financial POA and patient has a living will, all of which should already be on file here. PCP is Nico Hayward. Has Medicare A&B + [place] Medicaid. Reports no prior DME/HH/O2. Uses [facility] pharmacy. Daughter to transport home. No CM needs identified. I certify that the opportunity to review post-acute care facilities/agencies efficiency and quality data was provided to patient/family/legal u.s. representative. Answers: N/A Electronically signed by: Fredy Arellano * Discharge Summary - Lukas Ford - 09/12/2019 12:00 AM EDT HOSPITALIZATION: Admit Date:11-Sep-2019 Discharge Date:12-Sep-2019 Discharge Atttending Lukas You MD Admitting DiagnosisCarotid stenosis DISCHARGE DIAGNOSIS: Carotid stenosis: Reason for Hospitalization Hospitalized after left ICA stent for carotid stenosis HOSPITAL COURSE: Hospital Course Mrs. Hawkins was admitted to the hospital after left ICA stenting for symptomatic carotid stenosis.In the ICU, she was able to ambulate, void, and tolerate diet. She will be discharged on PPD 1 withASA/brilinta x3 mo and will follow up with Dr. Ford with a duplex ultrasound. GCS (EMV): 465 Awake, alert, oriented Follows commands appropriately Speech clear PERRL, EOMI ARCHER symmetrically, no drift, no hematoma DIAGNOSTIC AND PROCEDURAL EVENTS: - left ICA stent DISCHARGE INFORMATION: DispositionHome Discharge Conditionstable (signs or symptoms of potential problems absent or manageable) Discharge MedicationsFinal Medication List for Discharge Summary Discharge Medicationsaspirin 325 milligram(s) orally once a day atorvastatin 80 mg oral tablet 1 tab(s) orally once a day clopidogrel 75 mg oral tablet 1 tab(s) orally once a day losartan 25 mg oral tablet 1 tab(s) orally once a day Sulfamethoxa/Trimethopr 800mg/160mg Po Tab TAKE ONE TABLET BY MOUTH TWICE DAILY -- FINISH ALL MEDICINE -- Pending ResultsNo Pending Results DISCHARGE INSTRUCTIONS: Diet: No Restrictions. Resume regular at home diet. Lifting: No lifting more than 5 lbs for 14 days. Activity: No Restrictions. Wound or Incision Care: Wash your wound with mild soap and water once a day; pat dry; do not rub. Do not pull off steri-strips; they will fall off on their own. Do not take out stiches or chan; they will be taken out during your clinic visit. Leave the bandage on until your follow-up appointment. Reason to call: feels warm or hot to the touch, is red or dark pink, is tight or swollen and looks shiny, becomes more tender or sore to the touch, wound smells bad and wound is draining pus, bleeding or coming open. Instructed patient to call if: Temperature is above 101. Pain is not relieved by medications. You are throwing up or have diarrhea for more than 24 hours. Medication Instructions: Take Medication exactly as instructed. Do not take any medications that have not been ordered for This means do not take other people's medication, illegal drugs or substances, or even more aspirin than has been ordered. Recommended Follow Up Instructions: Follow Up Instructions: Follow up with: Dr. Ford. Have duplex carotid US before appointment. Electronic Signatures: Lukas Ford MD (Attending) (Signed 02-Oct-19 10:56) Co-Signer: Recommended Follow Up Instructions, DISCHARGE INSTRUCTIONS, DISCHARGE INFORMATION, DIAGNOSTIC AND PROCEDURAL EVENTS, HOSPITAL COURSE, DISCHARGE DIAGNOSIS, HOSPITALIZATION Antwon Pozo MD (Resident) (Signed 12-Sep-19 13:51) Authored: Recommended Follow Up Instructions, DISCHARGE INSTRUCTIONS, DISCHARGE INFORMATION, DIAGNOSTIC AND PROCEDURAL EVENTS, HOSPITAL COURSE, DISCHARGE DIAGNOSIS, HOSPITALIZATION Last Updated: 02-Oct-19 10:56 by Lukas Ford MD (Attending) * H&P - Maverick Vivas - 09/11/2019 12:00 AM EDT Document Topic: Service/ Team: ANS - Anesthesia/ Critical Care - Neurosurgery. 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 Has right UE weakness and numbness. Past medical history: CAD - 4 stents 3 yrs ago PVD HTN HLD Echo 08/02/2019 - LVEF 30-35%, severe concentric LVH, mod-severe anterioir wall hypokinesis, lateralwall akinesis, inf wall akinesis. Trace MR/TR. Recurrent UTI one functional kidney Past Surgical History Parotidectomy Tubal ligation Hyterectomy CCY Heart cath Home medications: [retrieved for EDDI HAWKINS at 11 Sep 2019 15:35]: Sulfamethoxa/Trimethopr 800mg/160mg Po Tab TAKE ONE TABLET BY MOUTH TWICE DAILY -- FINISH ALL MEDICINE -- losartan 25 mg oral tablet 1 tab(s) orally once a day aspirin 81 mg oral tablet 1 tab(s) orally once a day clopidogrel 75 mg oral tablet 1 tab(s) orally once a day atorvastatin 80 mg oral tablet 1 tab(s) orally once a day Social history: Current smoker - 58 pack years No etoh, drug use Family history: Non contributory Allergies: Codeine->Unknown Morphine->Unknown Codeine->Other Codeine->Intolerance Morphine->Intolerance Strawberries->Unknown ROS: NAD. No unexplained constitutional symptoms. No visual changes. No SOA. No N/V/D/C. No new joint complaints. No rashes. No MARVIN or unexplained sensorimotor complaints. No unexplained swelling. Objective: Vital Signs: BP 117/60 HR 73 R 19 T 97.7 (36.5) Wt 85.7kg (188.9lbs) Ht 168.0cm (5'6 ) BMI 30.4 Physical Exam: GENERAL: Alert, orientated SKIN: Warm, dry, without rash or lesion. HEENT: Normocephalic and atraumatic. Pupils equal, round, and reactive to light/accomodation. Moistmucus membranes; nares patent. RESPIRATORY: equal bilateral breath sounds, symmetric chest expansion. CARDIOVASCULAR: Regular rate and rhythm; no murmurs, rubs, or gallops. Pulses present. ABDOMEN: Soft and nondistended with hypoactive bowel sounds. No palpable masses. EXT: No cyanosis or edema NEURO: Right UE weakness and numbness, alert, orientated. CLAUDE. Moving other extremities. Labs: No lab data resulted in last 24 hours Assessment and plan: #Carotid stent, POD #0 on bg of CVA in July 2019 - Aim SBP<120 - resume antiplt, statin from tomorrow # CAD and rEF (POA) - restart anti-plt meds from tomorrow - close fluid management #HTN (POA) - holding home antihypertensives. Will restart when appropriate. - PRN meds ordered # Smoker (POA) - NRT as needed # CKD secondary to 1 functioning kidney and recurrent UTI (POA) - will follow closely #Critical Illness -This patient is critically ill following an operation and requires routine postoperative care. Will de-escalate as appropriate. F - NPO - advance when approp A - PRN S - none T - as approp H - none U - none G - none S - on RA B - none I - RRAL, PIV D - as approp Antonino Barajas PGY2 Pager [phone] Home Medications: MedicationInstructionsReview StatusSubmitted By atorvastatin 80 mg oral tablet1 tab(s) orally once a day VerifiedAntwon Arechiga MD clopidogrel 75 mg oral tablet1 tab(s) orally once a dayVerAntwon Llanos MD losartan 25 mg oral tablet1 tab(s) orally once a dayVerAntwon Llanos MD Sulfamethoxa/Trimethopr 800mg/160mg Po TabTAKE ONE TABLET BY MOUTH TWICE DAILY -- FINISH ALL MEDICINE --VerifiedElizabteh Tovar aspirin 81 mg oral tablet1 tab(s) orally once a dayVerifiedElizabeth Tovar ATTESTATION STATEMENTS : Attending Attestation Statement: I saw and evaluated the patient with the resident/fellow. I discussed the case with the resident/fellow and agree with the findings and plan as documented. Electronic Signatures: Antonino Barajas MD (Resident) (Signed 11-Sep-19 15:57) Authored: DOCUMENT TOPIC, EVALUATION Maverick Vivas MD (Attending) (Signed 12-Sep-19 09:10) Authored: ATTESTATION STATEMENTS Co-Signer: DOCUMENT TOPIC, EVALUATION Last Updated: 12-Sep-19 09:10 by Maverick Vivas MD (Attending) * Progress Notes - ProviderIzzy MD - 09/10/2019 12:00 AM EDT IR Phone Note: Nature of phone call: pre-procedure and carotid stent placement. Person making the phone call: Sobeida Gutierrez RN. Patient's phone number: [phone]. Spoke with: patient. Appointment Information - Date: 09/11/2019 Arrival time: 0630. Special Instructions: NPO after midnight, Bring a list of all your medications, Make sure you take your blood pressure medicines as prescribed and This procedure will require that you stay overnight at the hospital. Do you have any difficulty laying flat: No. Are you taking any blood thinners: No. Have you ever had IV Contrast/Dye: Yes. Have you ever had a reaction to IV Contrast/Dye: No. Are you diabetic: No. Directions given to patient about where to park, where to register, and where IR is located: Yes. Allergy, Intolerance, Adverse Event: Codeine: Drug, Unknown Codeine: Drug, Intolerance Morphine: Drug, Intolerance Codeine: Drug, Other Morphine: Drug, Unknown Strawberries: Food, Unknown Electronic Signatures: Sobeida Gutierrez RN (Nurse) (Signed 10-Sep-19 09:18) Authored: IR Phone Note Last Updated: 10-Sep-19 09:18 by Sobeida Gutierrez RN (Nurse) documented in this encounter Plan of Treatment Not on file documented as of this encounter Procedures Procedure Name Priority Date/Time Associated Diagnosis Comments CBC W/O DIFFERENTIAL Routine 09/12/2019 5:00 AM EDT PHOSPHORUS, PLASMA Routine 09/12/2019 5: 00 AM EDT MAGNESIUM, PLASMA Routine 09/12/2019 5:0 0 AM EDT COMPREHENSIVE METABOLIC PANEL, PLASMA Routine 09/12/2019 5:00 AM EDT MULTI DRUG RESISTANCE TEST Routine 09/11/2019 4:33 PM EDT GLUCOSE POINT OF CARE DC Routine 09/11/2019 11:58 AM EDT IR VIR HISTORICAL Routine 09/11/2019 10: 19 AM EDT IR MAC HISTORICAL Routine 09/11/2019 10: 19 AM EDT IR MAC HISTORICAL Routine 09/11/2019 10: 19 AM EDT US GUIDED IV INSERTION Routine 0 10:19 AM EDT POCT ACTIVATED CLOTTING TIME Routine 09/11/2019 9:27 AM EDT POCT ACTIVATED CLOTTING TIME Routine 09/11/2019 8:53 AM EDT documented in this encounter Results * (ABNORMAL) CBC W/O Differential (09/12/2019 5:00 AM EDT) WBC Count 7.33 3.7 - 10.3 k/uL [facility] RBC Count 3.89(L) 3.9 - 5.2 M/uL [facility] HGB 11.5 11.2 - 15.7 g/dL [facility] HCT 35.5 34 - 45 % [facility] Platelet Count 218 155 - 369 k/uL [facility] MCV 91 79 - 98 fL [facility] MCH 29.6 26 - 32 pg [facility] MCHC 32.4 30.7 - 35.5 g/dL [facility] RDW 14.5 12.4 - 14.9 % [facility] MPV 9.7 8.8 - 12.5 fL [facility] NRBC COUNT 0.0 0 % [facility] 09/12/2019 5:00 AM EDT 09/12/2019 5:12 AM EDT Yfn Burroughs APRN LAB BLOOD ORDERABLES Final R [facility] Performing Organization Address [facility] de Phone Number [facility] * Phosphorus, Plasma (09/12/2019 5:00 AM EDT) Phosphorus, Plasma 3.7 2.5 - 4.5 mg/dL [facility] 09/12/2019 5:00 AM EDT 09/12/2019 5:11 AM EDT Yfn Burroughs APRN LAB BLOOD ORDERABLES Final R [facility] Performing Organization Address [facility] de Phone Number [facility] * Magnesium, Plasma (09/12/2019 5:00 AM EDT) Magnesium, Plasma 2.0 1.9 - 2.4 mg/dL [facility] 09/12/2019 5:00 AM EDT 09/12/2019 5:11 AM EDT Yfn Burroughs APRN LAB BLOOD ORDERABLES Final R esult Performing Organization Address [facility] Co de Phone Number [facility] * (ABNORMAL) Comprehensive Metabolic Panel, Plasma (09/12/2019 5:00 AM EDT) Glucose, Plasma 98 74 - 99 mg/dL [facility] BUN, Plasma 13 8 - 23 mg/dL [facility] Creatinine, Plasma 1.36(H) 0.60 - 1.10 mg/dL [facility] BUN/Creatinine Ratio 10 8 - 20 [facility] Sodium, Plasma 137 136 - 145 mmol/L [facility] Potassium, Plasma 5.0(H) 3.7 - 4.8 mmol/L [facility] Chloride, Plasma 110(H) 97 - 107 mmol/L [facility] CO2, Plasma 19(L) 22 - 29 mmol/L [facility] Anion Gap 8 6 - 16 mmol/L [facility] Calcium, Plasma 8.9 8.9 - 10.2 mg/dL [facility] AST, Plasma 11 9 - 36 U/L [facility] ALT, Plasma 10 8 - 33 U/L [facility] Alkaline Phosphatase, Plasma 90 46 - 142 U/L [facility] Total Bilirubin, Plasma <0.2(L) 0.2 - 1.1 mg/dL [facility] Total Protein 5.8(L) 6.3 - 7.9 g/dL [facility] Albumin, Plasma 2.6(L) 3.3 - 4.6 g/dL [facility] eGFR 39(L) >60 SEE NOTE [facility] eGFR, if AFR/AM 47(L) >60 SEE NOTE [facility] Comment: (NOTE) eGFR = estimated GFR; eGFR units = mL/min/1.73 sq meters Chronic Kidney Disease is considered if eGFR <60 mL/min/1.73 sq meters Kidney failure is considered if eGFR is <15 mL/min/1.73 sq meters. eGFR assumes steady state plasma creatinine concentration; not applicable if renal function is rapidly changing or patient is on dialysis. 09/12/2019 5:00 AM EDT 09/12/2019 5:11 AM EDT us Yfn Burroughs APRN LAB BLOOD ORDERABLES Final R esult [facility] * Multi Drug Resistance Test (09/11/2019 4:33 PM EDT) 09/11/2019 4:33 PM EDT 09/11/2019 4:47 PM EDT Narrative [facility] - 03/25/2020 5:42 AM EST SQ ACC. NUMBER ?[id number] SPECIMEN DESCRIPTION: ?NARES AND CRISTOBAL RECTAL SPECIAL REQUESTS: ?NONE CULTURE: ? NO GROWTH DAY 2. REPORT STATUS: ? FINAL [id number] us Lukas Ford MD LAB MICROBIOLOGY - GENERAL OR DERABLES Final Result Performing Organization Address [facility] Co de Phone Number [facility] * Glucose Point of Care. (09/11/2019 11:58 AM EDT) [facility] POCT Glucose 92 74 - 99 mg/dL [facility] Comment: Accuracy of a glucose result obtained from a capillary whole blood specimen relies upon adequate, non-compromised capillary blood flow.If the capillary glucose result is not consistent with the patient's clinical signs and symptoms, glucose testing should be repeated with either an arterial or venous sample on the glucometer or sent to the main laboratory for testing. SPEC TYPE Capillary [facility] 09/11/2019 11:5 8 AM EDT 09/11/2019 12:21 PM EDT us Lukas Ford MD LAB BLOOD ORDERABLES Final Re sult Performing Organization Address [facility] de Phone Number [facility] * IR VIR HISTORICAL (09/11/2019 10:19 AM EDT) Anatomical Region Laterality Modality X-Ray Angiograph y Narrative 09/23/2019 5:14 PM EDT REQUESTING PHYSICIAN: LUKAS FORD REASON FOR EXAMINATION/PROCEDURE: Carotid stenosis EXAMINATION / PROCEDURE: ANGIO NOTIFICATION 201919; CAROTID STENT WITH PROTECTION Sep 11 2019; RT COM CAROTID 2019 0:19; ULTRASOUND GUIDED ACCESS 2019:19; CLINICAL INDICATION: 64-year-old male with a history of left internal carotid artery stenosis presents for diagnostic cerebral angiogram and possible carotid stenting. PRE-OP EVALUATI ON:The patient's preoperative neurological exam demonstrated the following findings: The patient has prior symptoms with some notable residual findings are in the detail the patient's outpatient H&P. The patient is at their neurologic [facility]. DATE: 09/11/2019 10:19 AM EXAM: 1. Carotid artery angioplasty and stenting with distal embolic protection device. 2. Diagnostic cerebral angiogram. COMPARISON:None. REPAIR MANAGER: Lukas Ford M.D. SECONDARY TOW TRUCK DISPATCHER:Derrick Joseph M.D. LENGTH OF PROCEDURE:53 minutes CONTRAST: 172 cc FLUORO TIME:22.5 Minutes DOSE:1155 mGy MEDICATIONS: 1% buffered Lidocaine (local), Omnipaque 300. Monitored anesthesia care. TECHNIQUE:The procedure was explai aleena in its entirety to patient by Dr. Edmonds to transport to the neuroangiography suite. This included a discussion of the risks, benefits, and alternatives to cerebral angiography. Risks discussed includedstroke or transient neurolog ic deficit (TIA), vascular injury, distal embolization, allergic reaction, pain, bleeding, and infection. The patientgave both verbal and written consent to proceed. Timeout was done at the beginning the procedure.Strict hand hygiene pro tocol was observed.All personnel in the room were attired in surgical hat and mask.The operators were in surgical hat, mask, sterile gown, and sterile gloves.The access site was prepped and draped in the standard sterile fashion with 2% ch lorohexadine. Monitored anesthesia care was used throughout the procedure. The right groin was prepped and draped in the usual sterile fashion. Next, the right femoral head was localized fluoroscopically and buffered 1% lidocaine was injecte d for local anesthesia. The common femoral artery was then accessed with 4French micropuncture set, and a 6 Barbadian shuttle sheath advanced over a J-wire. The sheath was connected to a regulated, pressurized infusion of heparinized saline. Contra st injection and angiography in the AP projection during access demonstrated puncture site proximal to the common femoral bifurcation. A 5 Barbadian Vert catheter was advanced over a 0.035 Angle-[place] guidewire through the sheath and into the th oracic aorta under fluoroscopic guidance.The catheter was advanced over the guidewire into the right common carotid artery. Right Common Carotid Artery Angiogram: Cervical View Contrast was injected and angiography performed in the AP and la teral projection through the right common carotid artery demonstrating the right common carotid artery, the right external carotid artery and its branches, and the right internal carotid artery.No significant stenosis, dissection, or vascula r malformation was identified. Right Common Carotid Artery Angiogram: Cranial View Contrast was injected and angiography performed in the AP, lateral, and oblique projection through the right common carotid artery demonstrating the right exter nal carotid artery branches, the right internal carotid artery, the middle cerebral artery, and anterior cerebral artery.No significant stenosis, dissection, or vascular malformation was identified. Left Common Carotid Artery Angiogram: Cervi orlin View The catheter was advanced over the guidewire using fluoroscopic guidance and roadmap technique.Contrast was injected and angiography performed in the AP and lateral projection through the left common carotid artery demonstrating the left common carotid artery, the left external carotid artery and its branches, and the left internal carotid artery. There is a 58% stenosis of the left internal carotid artery at its origin. Left Common Carotid Artery Angiogram: Cranial View Contrast was injected and angiography performed in the AP and lateral projection through the left common carotid artery demonstrating the left external carotid artery branches, the left internal carotid artery, the middle cerebral artery, and a nterior cerebral artery.No significant stenosis, dissection, or vascular malformation was identified. There is some notable intracranial atherosclerotic disease without high-grade stenosis. Endovascular Surgery: Left internal carotid artery angioplasty and stenting with distal embolic protection device. The 6 Barbadian shuttle was advanced over the guide catheter and wire into the left common carotid artery using roadmap technique. Baseline ACT was measured, and heparin bolus was administered.Using roadmap technique, an emboshield 5 mm protection device was advanced through the stenosis and into the distal left internal carotid artery proximal to the cavernous segment.The distal protection device was deployed and its wire used as a monorail.Glycopyrollate (200micrograms) was administered IV.Using roadmap technique, a Viatrac 14 plus 5 x 30 mm balloon was advanced over the monorail and positioned across the stenosis.Using roadmap technique the balloon was inflated, held for several seconds, deflated, and retrieved.The patient was hemodynamically stable throughout.Brief neurological exam showed no changes or new deficits. Post-angioplasty left common carotid angiogram: Cervical view C ontrast was injected and angiography performed in AP and lateral projection demonstrating anterograde flow in the left common carotid, external carotid, and internal carotid arteries.There has been interval improvement in the stenosis. Wendie reddy roadmap technique, an Acculink [id number] stent was advanced over the guidewire monorail and positioned across the stenosis.The stent was carefully deployed across the stenosis.Using roadmap technique, the distal protection device was retrie enrique using its designated retrieval device. Post-stent left common carotid angiogram: Cervical view Contrast was injected and angiography performed in AP and lateral projection demonstrating anterograde flow in the left common carotid, tiler al carotid, and internal carotid arteries.There has been interval improvement in the stenosis.The residual stenosis is estimated at 3%. Post-stent left common carotid angiogram: Cranial view Contrast was injected and angiography performed th rough the shuttle. Angiography in the AP and lateral views demonstrates anterograde flow in the left external carotid artery branches, left internal carotid, middle cerebral, and anterior cerebral arteries.There is significant improvement i n cerebral perfusion post-stenting. There is no evidence of thrombembolic clots or vessel occlusion. The shuttle was removed and the groin was closed with a 6 Barbadian Angio-Seal. FINDINGS: 1. Diffuse intracranial atherosclerotic diseas e without specific high-grade stenosis. 2. Left internal carotid artery cervical stenosis of 58% successfully treated with carotid artery angioplasty and stenting with distal embolic protection device. IMPRESSION: 1. Diffuse intracranial atherosclerotic disease without specific high-grade stenosis. 2. Left internal carotid artery cervical stenosis of 58% successfully treated with carotid artery angioplasty and stenting with distal embolic protection device. COMMUNICATION: I communicated the findings to the patient's family. Verified by: LUKAS FORD M.D. on Sep 22:12P Transcribed by: [facility] on Sep 22 Dictated by: LUKAS FORD M.D. on Sep 22:06P Procedure Note Lukas Ford - 09/26/2020 REQUESTING PHYSICIAN: LUKAS FORD REASON FOR EXAMINATION/PROCEDURE: Carotid stenosis EXAMINATION / PROCEDURE: ANGIO NOTIFICATION 2019:; CAROTID STENT WITH PROTECTION Sep 11 2019; RT COM CAROTID 2019 0:19; ULTRASOUND GUIDED ACCESS 2019; CLINICAL INDICATION: 64-year-old male with a history of left internal carotid artery stenosis presents for diagnostic cerebral angiogram and possible carotid stenting. PRE-OP EVALUATI ON:The patient's preoperative neurological exam demonstrated the following findings: The patient has prior symptoms with some notable residual findings are in the detail the patient's outpatient H&P. The patient is [place] their neurologic [facility] [place]. DATE: 09/11/2019 10:19 AM EXAM: 1. Carotid artery angioplasty and stenting with distal embolic protection device. 2. Diagnostic cerebral angiogram. COMPARISON:None. REPAIR MANAGER: Lukas Ford M.D. SECONDARY TOW TRUCK DISPATCHER:Derrick Joseph M.D. LENGTH OF PROCEDURE:53 minutes CONTRAST: 172 cc FLUORO TIME:22.5 Minutes DOSE:1155 mGy MEDICATIONS: 1% buffered Lidocaine (local), Omnipaque 300. Monitored anesthesia care. TECHNIQUE:The procedure was explai aleena in its entirety to patient by Dr. Edmonds to transport to the neuroangiography suite. This included a discussion of the risks, benefits, and alternatives to cerebral angiography. Risks discussed includedstroke or transient neurolog ic deficit (TIA), vascular injury, distal embolization, allergic reaction, pain, bleeding, and infection. The patientgave both verbal and written consent to proceed. Timeout was done at the beginning the procedure.Strict hand hygiene pro tocol was observed.All personnel in the room were attired in surgical hat and mask.The operators were in surgical hat, mask, sterile gown, and sterile gloves.The access site was prepped and draped in the standard sterile fashion with 2% ch lorohexadine. Monitored anesthesia care was used throughout the procedure. The right groin was prepped and draped in the usual sterile fashion. Next, the right femoral head was localized fluoroscopically and buffered 1% lidocaine was injecte d for local anesthesia. The common femoral artery was then accessed with 4French micropuncture set, and a 6 Barb[place] shuttle sheath advanced over a J-wire. The sheath was connected to a regulated, pressurized infusion of heparinized saline. Contra st injection and angiography in the AP projection during access demonstrated puncture site proximal to the common femoral bifurcation. A 5 Barb[place] Vert catheter was advanced over a 0.035 Angle-[place] guidewire through the sheath and into the th oracic aorta under fluoroscopic guidance.The catheter was advanced over the guidewire into the right common carotid artery. Right Common Carotid Artery Angiogram: Cervical View Contrast was injected and angiography performed in the AP and la teral projection through the right common carotid artery demonstrating the right common carotid artery, the right external carotid artery and its branches, and the right internal carotid artery.No significant stenosis, dissection, or vascula r malformation was identified. Right Common Carotid Artery Angiogram: Cranial View Contrast was injected and angiography performed in the AP, lateral, and oblique projection through the right common carotid artery demonstrating the right exter nal carotid artery branches, the right internal carotid artery, the middle cerebral artery, and anterior cerebral artery.No significant stenosis, dissection, or vascular malformation wasidentified. Left Common Carotid Artery Angiogram: Cervi orlin View The catheter was advanced over the guidewire using fluoroscopic guidance and roadmap technique.Contrast was injected and angiography performed in the AP and lateral projection through the left common carotid artery demonstrating the left common carotid artery, the left external carotid artery and its branches, and the left internal carotid artery. There is a 58% stenosis of the left internal carotid artery at its origin. Left Common Carotid Artery Angiogram: Cranial View Contrast was injected and angiography performed in the AP and lateral projection through the left common carotid artery demonstrating the left external carotid artery branches, the left internal carotid artery, the middle cerebral artery, and a nterior cerebral artery.No significant stenosis, dissection, or vascular malformation was identified. There is some notable intracranial atherosclerotic disease without high-grade stenosis. Endovascular Surgery: Left internal carotid artery angioplasty and stenting with distal embolic protection device. The 6 Barb[place] shuttle was advanced over the guide catheter and wire into the left common carotid artery using roadmap technique. Baseline ACT was measured, and heparin bolus was administered.Using roadmap technique, an emboshield 5 mm protection device was advanced through the stenosis and into the distal left internal carotid artery proximal to the cavernous segment.The distal protection device was deployed and its wire used as a monorail.Glycopyrollate (200micrograms) was administered IV.Using roadmap technique, a Viatrac 14 plus 5 x 30 mm balloon was advanced over the monorail and positioned across the stenosis.Using roadmap technique the balloon was inflated, held for several seconds, deflated, and retrieved.The patient was hemodynamically stable throughout.Brief neurological exam showed no changes or new deficits. Post-angioplasty left common carotid angiogram: Cervical view C ontrast was injected and angiography performed in AP and lateral projection demonstrating anterograde flow in the left common carotid, external carotid, and internal carotid arteries.There has been interval improvement in the stenosis. Wendie reddy roadmap technique, an Acculink [id number] stent was advanced over the guidewire monorail and positioned across the stenosis.The stent was carefully deployed across the stenosis.Using roadmap technique, the distal protection device was retrie enrique using its designated retrieval device. Post-stent left common carotid angiogram: Cervical view Contrast was injected and angiography performed in AP and lateral projection demonstrating anterograde flow in the left common carotid, tiler al carotid, and internal carotid arteries.There has been interval improvement in the stenosis.The residual stenosis is estimated at 3%. Post-stent left common carotid angiogram: Cranial view Contrast was injected and angiography performed th rough the shuttle. Angiography in the AP and lateral views demonstrates anterograde flow in the left external carotid artery branches, left internal carotid, middle cerebral, and anterior cerebral arteries.There is significant improvement i n cerebral perfusion post-stenting. There is no evidence of thrombembolic clots or vessel occlusion. The shuttle was removed and the groin was closed with a 6 Barbadian Angio-Seal. FINDINGS: 1. Diffuse intracranial atherosclerotic diseas e without specific high-grade stenosis. 2. Left internal carotid artery cervical stenosis of 58% successfully treated with carotid artery angioplasty and stenting with distal embolic protection device. IMPRESSION: 1. Diffuse intracranial atherosclerotic disease without specific high-grade stenosis. 2. Left internal carotid artery cervical stenosis of 58% successfully treated with carotid artery angioplasty and stenting with distal embolic protection device. COMMUNICATION: I communicated the findings to the patient's family. Verified by: LUKAS FORD M.D. on Sep 22:12P Transcribed by: [facility] on Sep 22:12P Dictated by: LUKAS FORD M.D. on Sep 22:06P us Lukas Ford MD IMG IR PROCEDURES Final Resul t * IR MAC HISTORICAL (09/11/2019 10:19 AM EDT) Anatomical Region Laterality Modality X-Ray Angiograph y Narrative 09/23/2019 5:14 PM EDT REQUESTING PHYSICIAN: LUKAS FORD REASON FOR EXAMINATION/PROCEDURE: Carotid stenosis EXAMINATION / PROCEDURE: ANGIO NOTIFICATION Sep ??8 2020 - 10:19; CAROTID STENT WITH PROTECTION Sep 11 201919; RT COM CAROTID Darnell ??2019 0:19; ULTRASOUND GUIDED ACCESS Darnell ??2019; ? CLINICAL INDICATION: 64-year-old male with a history of left internal carotid artery stenosis presents for diagnostic cerebral angiogram and possible carotid stenting. PRE-OP EVALUATI ON: ??The patient's preoperative neurological exam demonstrated the following findings: The patient has prior symptoms with some notable residual findings are in the detail the patient's outpatient H&P. The patient is at their neurologic [facility]. DATE: 09/11/2019 10:19 AM EXAM: ?? 1. Carotid artery angioplasty and stenting with distal embolic protection device. 2. Diagnostic cerebral angiogram. COMPARISON:None. REPAIR MANAGER: Lukas Ford M.D. SECONDARY TOW TRUCK DISPATCHER: ??Derrick Joseph M.D. LENGTH OF PROCEDURE: ??53 minutes CONTRAST: 172 cc FLUORO TIME: ??22.5 Minutes DOSE: ??1155 mGy MEDICATIONS: 1% buffered Lidocaine (local), Omnipaque 300. Monitored anesthesia care. TECHNIQUE:The procedure was explai aleena in its entirety to patient ?? by Dr. Ford ??prior to transport to the neuroangiography suite. This included a discussion of the risks, benefits, and alternatives to cerebral angiography. Risks discussed included ??stroke or transient neurolog ic deficit (TIA), vascular injury, distal embolization, allergic reaction, pain, bleeding, and infection. The patient ??gave both verbal and written consent to proceed. Timeout was done at the beginning the procedure.Strict hand hygiene pro tocol was observed. ??All personnel in the room were attired in surgical hat and mask. ??The operators were in surgical hat, mask, sterile gown, and sterile gloves. ??The access site was prepped and draped in the standard sterile fashion with 2% ch lorohexadine. Monitored anesthesia care was used throughout the procedure. The right groin was prepped and draped in the usual sterile fashion. Next, the right femoral head was localized fluoroscopically and buffered 1% lidocaine was injecte d for local anesthesia. The common femoral artery was then accessed with 4French micropuncture set, and a 6 Barb[place] shuttle sheath advanced over a J-wire. The sheath was connected to a regulated, pressurized infusion of heparinized saline. Contra st injection and angiography in the AP projection during access demonstrated puncture site proximal to the common femoral bifurcation. A 5 Barb[place] Vert catheter was advanced over a 0.035 Angle-[place] guidewire through the sheath and into the th oracic aorta under fluoroscopic guidance. ??The catheter was advanced over the guidewire into the right common carotid artery. Right Common Carotid Artery Angiogram: Cervical View Contrast was injected and angiography performed in the AP and la teral projection through the right common carotid artery demonstrating the right common carotid artery, the right external carotid artery and its branches, and the right internal carotid artery. ??No significant stenosis, dissection, or vascula r malformation was identified. Right Common Carotid Artery Angiogram: Cranial View Contrast was injected and angiography performed in the AP, lateral, and oblique projection through the right common carotid artery demonstrating the right exter nal carotid artery branches, the right internal carotid artery, the middle cerebral artery, and anterior cerebral artery. ??No significant stenosis, dissection, or vascular malformation was identified. Left Common Carotid Artery Angiogram: Cervi orlin View The catheter was advanced over the guidewire using fluoroscopic guidance and roadmap technique. ??Contrast was injected and angiography performed in the AP and lateral projection through the left common carotid artery demonstrating the left common carotid artery, the left external carotid artery and its branches, and the left internal carotid artery. There is a 58% stenosis of the left internal carotid artery at its origin. Left Common Carotid Artery Angiogram: Cranial View Contrast was injected and angiography performed in the AP and lateral projection through the left common carotid artery demonstrating the left external carotid artery branches, the left internal carotid artery, the middle cerebral artery, and a nterior cerebral artery. ??No significant stenosis, dissection, or vascular malformation was identified. There is some notable intracranial atherosclerotic disease without high-grade stenosis. Endovascular Surgery: Left internal carotid artery ??angioplasty and stenting with distal embolic protection device. The 6 Barb[place] shuttle was advanced over the guide catheter and wire into the left common carotid artery using roadmap technique. Baseline ACT was measured, and heparin bolus was ??administered. ??Using roadmap technique, an emboshield 5 mm protection device was advanced through the stenosis and into the distal left internal carotid artery proximal to the cavernous segment. ??The distal protection device was deployed and its wire used as a monorail. ??Glycopyrollate (200micrograms) was administered IV.Using roadmap technique, a Viatrac 14 plus 5 x 30 mm balloon was advanced over the monorail and positioned across the stenosis. ??Using roadmap technique the balloon ??was inflated, held for several seconds, deflated, and retrieved. ??The patient was hemodynamically stable throughout. ??Brief neurological exam showed no changes or new deficits. Post-angioplasty left common carotid angiogram: Cervical view C ontrast was injected and angiography performed in AP and lateral projection demonstrating anterograde flow in the left common carotid, external carotid, and internal carotid arteries. ??There has been interval improvement in the stenosis. Wendie reddy roadmap technique, an Acculink [id number] stent was advanced over the guidewire monorail and positioned across the stenosis. ??The stent was carefully deployed across the stenosis.Using roadmap technique, the distal protection device was retrie enrique using its designated retrieval device. Post-stent left common carotid angiogram: Cervical view Contrast was injected and angiography performed in AP and lateral projection demonstrating anterograde flow in the left common carotid, tiler al carotid, and internal carotid arteries. ??There has been interval improvement in the stenosis. ??The residual stenosis is estimated at 3%. Post-stent left common carotid angiogram: Cranial view Contrast was injected and angiography performed th rough the shuttle. ?? Angiography in the AP and lateral views demonstrates anterograde flow in the left external carotid artery branches, left internal carotid, middle cerebral, and anterior cerebral arteries. ??There is significant improvement i n cerebral perfusion post-stenting. ?? There is no evidence of thrombembolic clots or vessel occlusion. ?? The shuttle was removed and the groin was closed with a 6 Barb[place] Angio-Seal. FINDINGS: 1. Diffuse intracranial atherosclerotic diseas e without specific high-grade stenosis. 2. Left internal carotid artery cervical stenosis of 58% successfully treated with carotid artery angioplasty and stenting with distal embolic protection device. ?? IMPRESSION: 1. Diffuse intracranial ??atherosclerotic disease without specific high-grade stenosis. 2. Left internal carotid artery cervical stenosis of 58% successfully treated with carotid artery angioplasty and stenting with distal embolic protection device. COMMUNICATION: I communicated the findings to the patient's family. ?? Verified by: LUKAS FORD M.D. on Sep 23 2019 ??5:12P Transcribed by: [facility] on Sep 23 2019 ??5:12P Dictated by: LUKAS FORD M.D. on Sep 23 2019 ??5:06P Procedure Note Lukas Ford - 06/30/2020 REQUESTING PHYSICIAN: LUKAS FORD REASON FOR EXAMINATION/PROCEDURE: Carotid stenosis EXAMINATION / PROCEDURE: ANGIO NOTIFICATION Sep 11 2019; CAROTID STENT WITH PROTECTION Sep 11 2019; RT COM CAROTID Sep 11 2019 - 0:19; ULTRASOUND GUIDED ACCESS Sep 11 2019; CLINICAL INDICATION: 64-year-old male with a history of left internal carotid artery stenosis presents for diagnostic cerebral angiogram and possible carotid stenting. PRE-OP EVALUATI ON: The patient's preoperative neurological exam demonstrated the following findings: The patient has prior symptoms with some notable residual findings are in the detail the patient's outpatient H&P. The patient is at their neurologic [facility]. DATE: 09/11/2019 10:19 AM EXAM: 1. Carotid artery angioplasty and stenting with distal embolic protection device. 2. Diagnostic cerebral angiogram. COMPARISON:None. REPAIR MANAGER: Lukas Ford M.D. SECONDARY TOW TRUCK DISPATCHER: Derrick Joseph M.D. LENGTH OF PROCEDURE: 53 minutes CONTRAST: 172 cc FLUORO TIME: 22.5 Minutes DOSE: 1155 mGy MEDICATIONS: 1% buffered Lidocaine (local), Omnipaque 300. Monitored anesthesia care. TECHNIQUE:The procedure was explai aleena in its entirety to patient by Dr. Ford prior to transport to the neuroangiography suite. This included a discussion of the risks, benefits, and alternatives to cerebral angiography. Risks discussed included stroke or transient neurolog ic deficit (TIA), vascular injury, distal embolization, allergic reaction, pain, bleeding, and infection. The patient gave both verbal and written consent to proceed. Timeout was done at the beginning the procedure.Strict hand hygiene pro tocol was observed. All personnel in the room were attired in surgical hat and mask. The operators were in surgical hat, mask, sterile gown, and sterile gloves. The access site was prepped and draped in the standard sterile fashion with 2% ch lorohexadine. Monitored anesthesia care was used throughout the procedure. The right groin was prepped and draped in the usual sterile fashion. Next, the right femoral head was localized fluoroscopically and buffered 1% lidocaine was injecte d for local anesthesia. The common femoral artery was then accessed with 4French micropuncture set, and a 6 Barb[place] shuttle sheath advanced over a J-wire. The sheath was connected to a regulated, pressurized infusion of heparinized saline. Contra st injection and angiography in the AP projection during access demonstrated puncture site proximal to the common femoral bifurcation. A 5 Barb[place] Vert catheter was advanced over a 0.035 Angle-[place] guidewire through the sheath and into the th oracic aorta under fluoroscopic guidance. The catheter was advanced over the guidewire into the right common carotid artery. Right Common Carotid Artery Angiogram: Cervical View Contrast was injected and angiography performed in the AP and la teral projection through the right common carotid artery demonstrating the right common carotid artery, the right external carotid artery and its branches, and the right internal carotid artery. No significant stenosis, dissection, or vascula r malformation was identified. Right Common Carotid Artery Angiogram: Cranial View Contrast was injected and angiography performed in the AP, lateral, and oblique projection through the right common carotid artery demonstrating the right exter nal carotid artery branches, the right internal carotid artery, the middle cerebral artery, and anterior cerebral artery. No significant stenosis, dissection, or vascular malformation wasidentified. Left Common Carotid Artery Angiogram: Cervi orlin View The catheter was advanced over the guidewire using fluoroscopic guidance and roadmap technique. Contrast was injected and angiography performed in the AP and lateral projection through the left common carotid artery demonstrating the left common carotid artery, the left external carotid artery and its branches, and the left internal carotid artery. There is a 58% stenosis of the left internal carotid artery at its origin. Left Common Carotid Artery Angiogram: Cranial View Contrast was injected and angiography performed in the AP and lateral projection through the left common carotid artery demonstrating the left external carotid artery branches, the left internal carotid artery, the middle cerebral artery, and a nterior cerebral artery. No significant stenosis, dissection, or vascular malformation was identified. There is some notable intracranial atherosclerotic disease without high-grade stenosis. Endovascular Surgery: Left internal carotid artery angioplasty and stenting with distal embolic protection device. The 6 Barb[place] shuttle was advanced over the guide catheter and wire into the left common carotid artery using roadmap technique. Baseline ACT was measured, and heparin bolus was administered. Using roadmap technique, an emboshield 5 mm protection device was advanced through the stenosis and into the distal left internal carotid artery proximal to the cavernous segment. The distal protection device was deployed and its wire used as a monorail. Glycopyrollate (200micrograms) was administered IV.Using roadmap technique, a Viatrac 14 plus 5 x 30 mm balloon was advanced over the monorail and positioned across the stenosis. Using roadmap technique the balloon was inflated, held for several seconds, deflated, and retrieved. The patient was hemodynamically stable throughout. Brief neurological exam showed no changes or new deficits. Post-angioplasty left common carotid angiogram: Cervical view C ontrast was injected and angiography performed in AP and lateral projection demonstrating anterograde flow in the left common carotid, external carotid, and internal carotid arteries. There has been interval improvement in the stenosis. in barry roadmap technique, an Acculink [id number] stent was advanced over the guidewire monorail and positioned across the stenosis. The stent was carefully deployed across the stenosis.Using roadmap technique, the distal protection device was retrie enrique using its designated retrieval device. Post-stent left common carotid angiogram: Cervical view Contrast was injected and angiography performed in AP and lateral projection demonstrating anterograde flow in the left common carotid, tiler al carotid, and internal carotid arteries. There has been interval improvement in the stenosis. The residual stenosis is estimated at 3%. Post-stent left common carotid angiogram: Cranial view Contrast was injected and angiography performed th rough the shuttle. Angiography in the AP and lateral views demonstrates anterograde flow in the left external carotid artery branches, left internal carotid, middle cerebral, and anterior cerebral arteries. There is significant improvement i n cerebral perfusion post-stenting. There is no evidence of thrombembolic clots or vessel occlusion. The shuttle was removed and the groin was closed with a 6 Barb[place] Angio-Seal. FINDINGS: 1. Diffuse intracranial atherosclerotic diseas e without specific high-grade stenosis. 2. Left internal carotid artery cervical stenosis of 58% successfully treated with carotid artery angioplasty and stenting with distal embolic protection device. IMPRESSION: 1. Diffuse intracranial atherosclerotic disease without specific high-grade stenosis. 2. Left internal carotid artery cervical stenosis of 58% successfully treated with carotid artery angioplasty and stenting with distal embolic protection device. COMMUNICATION: I communicated the findings to the patient's family. Verified by: LUKAS FORD M.D. on Sep 23 2019 5:12P Transcribed by: [facility] on Sep 23 2019 5:12P Dictated by: LUKAS FORD M.D. on Sep 23 2019 5:06P us Lukas Ford MD IMG IR PROCEDURES Final Resul t * US Guided IV Insertion (09/11/2019 10:19 AM EDT) Anatomical Region Laterality Modality Vascular Ultrasound Narrative 09/23/2019 5:14 PM EDT REQUESTING PHYSICIAN: LUKAS FORD REASON FOR EXAMINATION/PROCEDURE: Carotid stenosis EXAMINATION / PROCEDURE: ANGIO NOTIFICATION Sep ??201919; CAROTID STENT WITH PROTECTION Sep 11 201919; RT COM CAROTID Sep ??2019 0:19; ULTRASOUND GUIDED ACCESS Sep ??2019; ? CLINICAL INDICATION: 64-year-old male with a history of left internal carotid artery stenosis presents for diagnostic cerebral angiogram and possible carotid stenting. PRE-OP EVALUATI ON: ??The patient's preoperative neurological exam demonstrated the following findings: The patient has prior symptoms with some notable residual findings are in the detail the patient's outpatient H&P. The patient is at their neurologic [facility]. DATE: 09/11/2019 10:19 AM EXAM: ?? 1. Carotid artery angioplasty and stenting with distal embolic protection device. 2. Diagnostic cerebral angiogram. COMPARISON:None. REPAIR MANAGER: Lukas Ford M.D. SECONDARY TOW TRUCK DISPATCHER: ??Derrick Joseph M.D. LENGTH OF PROCEDURE: ??53 minutes CONTRAST: 172 cc FLUORO TIME: ??22.5 Minutes DOSE: ??1155 mGy MEDICATIONS: 1% buffered Lidocaine (local), Omnipaque 300. Monitored anesthesia care. TECHNIQUE:The procedure was explai aleena in its entirety to patient ?? by Dr. Ford ??prior to transport to the neuroangiography suite. This included a discussion of the risks, benefits, and alternatives to cerebral angiography. Risks discussed included ??stroke or transient neurolog ic deficit (TIA), vascular injury, distal embolization, allergic reaction, pain, bleeding, and infection. The patient ??gave both verbal and written consent to proceed. Timeout was done at the beginning the procedure.Strict hand hygiene pro tocol was observed. ??All personnel in the room were attired in surgical hat and mask. ??The operators were in surgical hat, mask, sterile gown, and sterile gloves. ??The access site was prepped and draped in the standard sterile fashion with 2% ch lorohexadine. Monitored anesthesia care was used throughout the procedure. The right groin was prepped and draped in the usual sterile fashion. Next, the right femoral head was localized fluoroscopically and buffered 1% lidocaine was injecte d for local anesthesia. The common femoral artery was then accessed with 4French micropuncture set, and a 6 Barb[place] shuttle sheath advanced over a J-wire. The sheath was connected to a regulated, pressurized infusion of heparinized saline. Contra st injection and angiography in the AP projection during access demonstrated puncture site proximal to the common femoral bifurcation. A 5 Barb[place] Vert catheter was advanced over a 0.035 Angle-Austin guidewire through the sheath and into the th oracic aorta under fluoroscopic guidance. ??The catheter was advanced over the guidewire into the right common carotid artery. Right Common Carotid Artery Angiogram: Cervical View Contrast was injected and angiography performed in the AP and la teral projection through the right common carotid artery demonstrating the right common carotid artery, the right external carotid artery and its branches, and the right internal carotid artery. ??No significant stenosis, dissection, or vascula r malformation was identified. Right Common Carotid Artery Angiogram: Cranial View Contrast was injected and angiography performed in the AP, lateral, and oblique projection through the right common carotid artery demonstrating the right exter nal carotid artery branches, the right internal carotid artery, the middle cerebral artery, and anterior cerebral artery. ??No significant stenosis, dissection, or vascular malformation was identified. Left Common Carotid Artery Angiogram: Cervi orlin View The catheter was advanced over the guidewire using fluoroscopic guidance and roadmap technique. ??Contrast was injected and angiography performed in the AP and lateral projection through the left common carotid artery demonstrating the left common carotid artery, the left external carotid artery and its branches, and the left internal carotid artery. There is a 58% stenosis of the left internal carotid artery at its origin. Left Common Carotid Artery Angiogram: Cranial View Contrast was injected and angiography performed in the AP and lateral projection through the left common carotid artery demonstrating the left external carotid artery branches, the left internal carotid artery, the middle cerebral artery, and a nterior cerebral artery. ??No significant stenosis, dissection, or vascular malformation was identified. There is some notable intracranial atherosclerotic disease without high-grade stenosis. Endovascular Surgery: Left internal carotid artery ??angioplasty and stenting with distal embolic protection device. The 6 Barb[place] shuttle was advanced over the guide catheter and wire into the left common carotid artery using roadmap technique. Baseline ACT was measured, and heparin bolus was ??administered. ??Using roadmap technique, an emboshield 5 mm protection device was advanced through the stenosis and into the distal left internal carotid artery proximal to the cavernous segment. ??The distal protection device was deployed and its wire used as a monorail. ??Glycopyrollate (200micrograms) was administered IV.Using roadmap technique, a Viatrac 14 plus 5 x 30 mm balloon was advanced over the monorail and positioned across the stenosis. ??Using roadmap technique the balloon ??was inflated, held for several seconds, deflated, and retrieved. ??The patient was hemodynamically stable throughout. ??Brief neurological exam showed no changes or new deficits. Post-angioplasty left common carotid angiogram: Cervical view C ontrast was injected and angiography performed in AP and lateral projection demonstrating anterograde flow in the left common carotid, external carotid, and internal carotid arteries. ??There has been interval improvement in the stenosis. Wendie reddy roadmap technique, an Acculink [id number] stent was advanced over the guidewire monorail and positioned across the stenosis. ??The stent was carefully deployed across the stenosis.Using roadmap technique, the distal protection device was retrie enrique using its designated retrieval device. Post-stent left common carotid angiogram: Cervical view Contrast was injected and angiography performed in AP and lateral projection demonstrating anterograde flow in the left common carotid, tiler al carotid, and internal carotid arteries. ??There has been interval improvement in the stenosis. ??The residual stenosis is estimated at 3%. Post-stent left common carotid angiogram: Cranial view Contrast was injected and angiography performed th rough the shuttle. ?? Angiography in the AP and lateral views demonstrates anterograde flow in the left external carotid artery branches, left internal carotid, middle cerebral, and anterior cerebral arteries. ??There is significant improvement i n cerebral perfusion post-stenting. ?? There is no evidence of thrombembolic clots or vessel occlusion. ?? The shuttle was removed and the groin was closed with a 6 Barb[place] Angio-Seal. FINDINGS: 1. Diffuse intracranial atherosclerotic diseas e without specific high-grade stenosis. 2. Left internal carotid artery cervical stenosis of 58% successfully treated with carotid artery angioplasty and stenting with distal embolic protection device. ?? IMPRESSION: 1. Diffuse intracranial ??atherosclerotic disease without specific high-grade stenosis. 2. Left internal carotid artery cervical stenosis of 58% successfully treated with carotid artery angioplasty and stenting with distal embolic protection device. COMMUNICATION: I communicated the findings to the patient's family. ?? Verified by: LUKAS FORD M.D. on Sep 23 2019 ??5:12P Transcribed by: PSCB on Sep 23 2019 ??5:12P Dictated by: LUKAS FORD M.D. on Sep 23 2019 ??5:06P Procedure Note Lukas Ford - 06/30/2020 REQUESTING PHYSICIAN: LUKAS FORD REASON FOR EXAMINATION/PROCEDURE: Carotid stenosis EXAMINATION / PROCEDURE: ANGIO NOTIFICATION Sep 11 2019:; CAROTID STENT WITH PROTECTION Sep 11 2019; RT COM CAROTID Sep 11 2019 - 0:19; ULTRASOUND GUIDED ACCESS Sep 11 2019:19; CLINICAL INDICATION: 64-year-old male with a history of left internal carotid artery stenosis presents for diagnostic cerebral angiogram and possible carotid stenting. PRE-OP EVALUATI ON: The patient's preoperative neurological exam demonstrated the following findings: The patient has prior symptoms with some notable residual findings are in the detail the patient's outpatient H&P. The patient is at their neurologic [facility]. DATE: 09/11/2019 10:19 AM EXAM: 1. Carotid artery angioplasty and stenting with distal embolic protection device. 2. Diagnostic cerebral angiogram. COMPARISON:None. REPAIR MANAGER: Lukas Ford M.D. SECONDARY TOW TRUCK DISPATCHER: Derrick Joseph M.D. LENGTH OF PROCEDURE: 53 minutes CONTRAST: 172 cc FLUORO TIME: 22.5 Minutes DOSE: 1155 mGy MEDICATIONS: 1% buffered Lidocaine (local), Omnipaque 300. Monitored anesthesia care. TECHNIQUE:The procedure was sina flood in its entirety to patient by Dr. Ford prior to transport to the neuroangiography suite. This included a discussion of the risks, benefits, and alternatives to cerebral angiography. Risks discussed included stroke or transient neurolog ic deficit (TIA), vascular injury, distal embolization, allergic reaction, pain, bleeding, and infection. The patient gave both verbal and written consent to proceed. Timeout was done at the beginning the procedure.Strict hand hygiene pro tocol was observed. All personnel in the room were attired in surgical hat and mask. The operators were in surgical hat, mask, sterile gown, and sterile gloves. The access site was prepped and draped in the standard sterile fashion with 2% ch lorohexadine. Monitored anesthesia care was used throughout the procedure. The right groin was prepped and draped in the usual sterile fashion. Next, the right femoral head was localized fluoroscopically and buffered 1% lidocaine was injecte d for local anesthesia. The common femoral artery was then accessed with 4French micropuncture set, and a 6 [place] shuttle sheath advanced over a J-wire. The sheath was connected to a regulated, pressurized infusion of heparinized saline. Contra st injection and angiography in the AP projection during access demonstrated puncture site proximal to the common femoral bifurcation. A 5 [place] Vert catheter was advanced over a 0.035 Angle-[place] guidewire through the sheath and into the th oracic aorta under fluoroscopic guidance. The catheter was advanced over the guidewire into the right common carotid artery. Right Common Carotid Artery Angiogram: Cervical View Contrast was injected and angiography performed in the AP and la teral projection through the right common carotid artery demonstrating the right common carotid artery, the right external carotid artery and its branches, and the right internal carotid artery. No significant stenosis, dissection, or vascula r malformation was identified. Right Common Carotid Artery Angiogram: Cranial View Contrast was injected and angiography performed in the AP, lateral, and oblique projection through the right common carotid artery demonstrating the right exter nal carotid artery branches, the right internal carotid artery, the middle cerebral artery, and anterior cerebral artery. No significant stenosis, dissection, or vascular malformation wasidentified. Left Common Carotid Artery Angiogram: Cervi orlin View The catheter was advanced over the guidewire using fluoroscopic guidance and roadmap technique. Contrast was injected and angiography performed in the AP and lateral projection through the left common carotid artery demonstrating the left common carotid artery, the left external carotid artery and its branches, and the left internal carotid artery. There is a 58% stenosis of the left internal carotid artery at its origin. Left Common Carotid Artery Angiogram: Cranial View Contrast was injected and angiography performed in the AP and lateral projection through the left common carotid artery demonstrating the left external carotid artery branches, the left internal carotid artery, the middle cerebral artery, and a nterior cerebral artery. No significant stenosis, dissection, or vascular malformation was identified. There is some notable intracranial atherosclerotic disease without high-grade stenosis. Endovascular Surgery: Left internal carotid artery angioplasty and stenting with distal embolic protection device. The 6 [place] shuttle was advanced over the guide catheter and wire into the left common carotid artery using roadmap technique. Baseline ACT was measured, and heparin bolus was administered. Using roadmap technique, an emboshield 5 mm protection device was advanced through the stenosis and into the distal left internal carotid artery proximal to the cavernous segment. The distal protection device was deployed and its wire used as a monorail. Glycopyrollate (200micrograms) was administered IV.Using roadmap technique, a Viatrac 14 plus 5 x 30 mm balloon was advanced over the monorail and positioned across the stenosis. Using roadmap technique the balloon was inflated, held for several seconds, deflated, and retrieved. The patient was hemodynamically stable throughout. Brief neurological exam showed no changes or new deficits. Post-angioplasty left common carotid angiogram: Cervical view C ontrast was injected and angiography performed in AP and lateral projection demonstrating anterograde flow in the left common carotid, external carotid, and internal carotid arteries. There has been interval improvement in the stenosis. Wendie reddy roadmap technique, an Acculink [id number] stent was advanced over the guidewire monorail and positioned across the stenosis. The stent was carefully deployed across the stenosis.Using roadmap technique, the distal protection device was retrie enrique using its designated retrieval device. Post-stent left common carotid angiogram: Cervical view Contrast was injected and angiography performed in AP and lateral projection demonstrating anterograde flow in the left common carotid, tiler al carotid, and internal carotid arteries. There has been interval improvement in the stenosis. The residual stenosis is estimated at 3%. Post-stent left common carotid angiogram: Cranial view Contrast was injected and angiography performed th rough the shuttle. Angiography in the AP and lateral views demonstrates anterograde flow in the left external carotid artery branches, left internal carotid, middle cerebral, and anterior cerebral arteries. There is significant improvement i n cerebral perfusion post-stenting. There is no evidence of thrombembolic clots or vessel occlusion. The shuttle was removed and the groin was closed with a 6 Barb[place] Angio-Seal. FINDINGS: 1. Diffuse intracranial atherosclerotic diseas e without specific high-grade stenosis. 2. Left internal carotid artery cervical stenosis of 58% successfully treated with carotid artery angioplasty and stenting with distal embolic protection device. IMPRESSION: 1. Diffuse intracranial atherosclerotic disease without specific high-grade stenosis. 2. Left internal carotid artery cervical stenosis of 58% successfully treated with carotid artery angioplasty and stenting with distal embolic protection device. COMMUNICATION: I communicated the findings to the patient's family. Verified by: LUKAS FORD M.D. on Sep 23 2019 5:12P Transcribed by: PSCB on Sep 23 2019 5:12P Dictated by: LUKAS FORD M.D. on Sep 23 2019 5:06P us Lukas Ford MD IMG US PROCEDURES Final Resul t * IR MAC HISTORICAL (09/11/2019 10:19 AM EDT) Anatomical Region Laterality Modality X-Ray Angiograph y Narrative 09/23/2019 5:14 PM EDT REQUESTING PHYSICIAN: LUKAS FORD REASON FOR EXAMINATION/PROCEDURE: Carotid stenosis EXAMINATION / PROCEDURE: ANGIO NOTIFICATION Darnell ??2019 10:19; CAROTID STENT WITH PROTECTION Sep 11 2019:19; RT COM CAROTID Sep ??2019 0:19; ULTRASOUND GUIDED ACCESS Darnell ??[id number]; ? CLINICAL INDICATION: 64-year-old male with a history of left internal carotid artery stenosis presents for diagnostic cerebral angiogram and possible carotid stenting. PRE-OP EVALUATI ON: ??The patient's preoperative neurological exam demonstrated the following findings: The patient has prior symptoms with some notable residual findings are in the detail the patient's outpatient H&P. The [facility] DATE: 09/11/2019 10:19 AM EXAM: ?? 1. Carotid artery angioplasty and stenting with distal embolic protection device. 2. Diagnostic cerebral angiogram. COMPARISON:None. REPAIR MANAGER: Lukas Ford M.D. SECONDARY TOW TRUCK DISPATCHER: ??Derrick Joseph M.D. LENGTH OF PROCEDURE: ??53 minutes CONTRAST: 172 cc FLUORO TIME: ??22.5 Minutes DOSE: ??1155 mGy MEDICATIONS: 1% buffered Lidocaine (local), Omnipaque 300. Monitored anesthesia care. TECHNIQUE:The procedure was explai aleena in its entirety to patient ?? by Dr. Ford ??prior to transport to the neuroangiography suite. This included a discussion of the risks, benefits, and alternatives to cerebral angiography. Risks discussed included ??stroke or transient neurolog ic deficit (TIA), vascular injury, distal embolization, allergic reaction, pain, bleeding, and infection. The patient ??gave both verbal and written consent to proceed. Timeout was done at the beginning the procedure.Strict hand hygiene pro tocol was observed. ??All personnel in the room were attired in surgical hat and mask. ??The operators were in surgical hat, mask, sterile gown, and sterile gloves. ??The access site was prepped and draped in the standard sterile fashion with 2% ch lorohexadine. Monitored anesthesia care was used throughout the procedure. The right groin was prepped and draped in the usual sterile fashion. Next, the right femoral head was localized fluoroscopically and buffered 1% lidocaine was injecte d for local anesthesia. The common femoral artery was then accessed with 4French micropuncture set, and a 6 [place] shuttle sheath advanced over a J-wire. The sheath was connected to a regulated, pressurized infusion of heparinized saline. Contra st injection and angiography in the AP projection during access demonstrated puncture site proximal to the common femoral bifurcation. A 5 [place] Vert catheter was advanced over a 0.035 Ang[place] guidewire through the sheath and into the th oracic aorta under fluoroscopic guidance. ??The catheter was advanced over the guidewire into the right common carotid artery. Right Common Carotid Artery Angiogram: Cervical View Contrast was injected and angiography performed in the AP and la teral projection through the right common carotid artery demonstrating the right common carotid artery, the right external carotid artery and its branches, and the right internal carotid artery. ??No significant stenosis, dissection, or vascula r malformation was identified. Right Common Carotid Artery Angiogram: Cranial View Contrast was injected and angiography performed in the AP, lateral, and oblique projection through the right common carotid artery demonstrating the right exter nal carotid artery branches, the right internal carotid artery, the middle cerebral artery, and anterior cerebral artery. ??No significant stenosis, dissection, or vascular malformation was identified. Left Common Carotid Artery Angiogram: Cervi orlin View The catheter was advanced over the guidewire using fluoroscopic guidance and roadmap technique. ??Contrast was injected and angiography performed in the AP and lateral projection through the left common carotid artery demonstrating the left common carotid artery, the left external carotid artery and its branches, and the left internal carotid artery. There is a 58% stenosis of the left internal carotid artery at its origin. Left Common Carotid Artery Angiogram: Cranial View Contrast was injected and angiography performed in the AP and lateral projection through the left common carotid artery demonstrating the left external carotid artery branches, the left internal carotid artery, the middle cerebral artery, and a nterior cerebral artery. ??No significant stenosis, dissection, or vascular malformation was identified. There is some notable intracranial atherosclerotic disease without high-grade stenosis. Endovascular Surgery: Left internal carotid artery ??angioplasty and stenting with distal embolic protection device. The 6 [place] shuttle was advanced over the guide catheter and wire into the left common carotid artery using roadmap technique. Baseline ACT was measured, and heparin bolus was ??administered. ??Using roadmap technique, an emboshield 5 mm protection device was advanced through the stenosis and into the distal left internal carotid artery proximal to the cavernous segment. ??The distal protection device was deployed and its wire used as a monorail. ??Glycopyrollate (200micrograms) was administered IV.Using roadmap technique, a Viatrac 14 plus 5 x 30 mm balloon was advanced over the monorail and positioned across the stenosis. ??Using roadmap technique the balloon ??was inflated, held for several seconds, deflated, and retrieved. ??The patient was hemodynamically stable throughout. ??Brief neurological exam showed no changes or new deficits. Post-angioplasty left common carotid angiogram: Cervical view C ontrast was injected and angiography performed in AP and lateral projection demonstrating anterograde flow in the left common carotid, external carotid, and internal carotid arteries. ??There has been interval improvement in the stenosis. Wendie reddy roadmap technique, an Acculink [id number] stent was advanced over the guidewire monorail and positioned across the stenosis. ??The stent was carefully deployed across the stenosis.Using roadmap technique, the distal protection device was retrie enrique using its designated retrieval device. Post-stent left common carotid angiogram: Cervical view Contrast was injected and angiography performed in AP and lateral projection demonstrating anterograde flow in the left common carotid, tiler al carotid, and internal carotid arteries. ??There has been interval improvement in the stenosis. ??The residual stenosis is estimated at 3%. Post-stent left common carotid angiogram: Cranial view Contrast was injected and angiography performed th rough the shuttle. ?? Angiography in the AP and lateral views demonstrates anterograde flow in the left external carotid artery branches, left internal carotid, middle cerebral, and anterior cerebral arteries. ??There is significant improvement i n cerebral perfusion post-stenting. ?? There is no evidence of thrombembolic clots or vessel occlusion. ?? The shuttle was removed and the groin was closed with a 6 [place] Angio-Seal. FINDINGS: 1. Diffuse intracranial atherosclerotic diseas e without specific high-grade stenosis. 2. Left internal carotid artery cervical stenosis of 58% successfully treated with carotid artery angioplasty and stenting with distal embolic protection device. ?? IMPRESSION: 1. Diffuse intracranial ??atherosclerotic disease without specific high-grade stenosis. 2. Left internal carotid artery cervical stenosis of 58% successfully treated with carotid artery angioplasty and stenting with distal embolic protection device. COMMUNICATION: I communicated the findings to the patient's family. ?? Verified by: LUKAS FORD M.D. on Sep 23 2019 ??5:12P Transcribed by: [facility] on Sep 23 2019 ??5:12P Dictated by: LUKAS FORD M.D. on Sep 23 2019 ??5:06P Procedure Note Lukas Ford - 06/30/2020 REQUESTING PHYSICIAN: LUKAS FORD REASON FOR EXAMINATION/PROCEDURE: Carotid stenosis EXAMINATION / PROCEDURE: ANGIO NOTIFICATION Sep 11 2019 - 10:19; CAROTID STENT WITH PROTECTION Sep 11 2019:; RT COM CAROTID Sep 11 2019 - 0:19; ULTRASOUND GUIDED ACCESS Sep 11 2019:19; CLINICAL INDICATION: 64-year-old male with a history of left internal carotid artery stenosis presents for diagnostic cerebral angiogram and possible carotid stenting. PRE-OP EVALUATI ON: The patient's preoperative neurological exam demonstrated the following findings: The patient has prior symptoms with some notable residual findings are in the detail the patient's outpatient H&P. The patient is at their neurologic [facility] [place]. DATE: 09/11/2019 10:19 AM EXAM: 1. Carotid artery angioplasty and stenting with distal embolic protection device. 2. Diagnostic cerebral angiogram. COMPARISON:None. REPAIR MANAGER: Lukas Ford M.D. SECONDARY TOW TRUCK DISPATCHER: Derrick Joseph M.D. LENGTH OF PROCEDURE: 53 minutes CONTRAST: 172 cc FLUORO TIME: 22.5 Minutes DOSE: 1155 mGy MEDICATIONS: 1% buffered Lidocaine (local), Omnipaque 300. Monitored anesthesia care. TECHNIQUE:The procedure was explai aleena in its entirety to patient by Dr. Ford prior to transport to the neuroangiography suite. This included a discussion of the risks, benefits, and alternatives to cerebral angiography. Risks discussed included stroke or transient neurolog ic deficit (TIA), vascular injury, distal embolization, allergic reaction, pain, bleeding, and infection. The patient gave both verbal and written consent to proceed. Timeout was done at the beginning the procedure.Strict hand hygiene pro tocol was observed. All personnel in the room were attired in surgical hat and mask. The operators were in surgical hat, mask, sterile gown, and sterile gloves. The access site was prepped and draped in the standard sterile fashion with 2% ch lorohexadine. Monitored anesthesia care was used throughout the procedure. The right groin was prepped and draped in the usual sterile fashion. Next, the right femoral head was localized fluoroscopically and buffered 1% lidocaine was injecte d for local anesthesia. The common femoral artery was then accessed with 4French micropuncture set, and a 6 Barbadian shuttle sheath advanced over a J-wire. The sheath was connected to a regulated, pressurized infusion of heparinized saline. Contra st injection and angiography in the AP projection during access demonstrated puncture site proximal to the common femoral bifurcation. A 5 Barbadian Vert catheter was advanced over a 0.035 Ang[place] guidewire through the sheath and into the th oracic aorta under fluoroscopic guidance. The catheter was advanced over the guidewire into the right common carotid artery. Right Common Carotid Artery Angiogram: Cervical View Contrast was injected and angiography performed in the AP and la teral projection through the right common carotid artery demonstrating the right common carotid artery, the right external carotid artery and its branches, and the right internal carotid artery. No significant stenosis, dissection, or vascula r malformation was identified. Right Common Carotid Artery Angiogram: Cranial View Contrast was injected and angiography performed in the AP, lateral, and oblique projection through the right common carotid artery demonstrating the right exter nal carotid artery branches, the right internal carotid artery, the middle cerebral artery, and anterior cerebral artery. No significant stenosis, dissection, or vascular malformation wasidentified. Left Common Carotid Artery Angiogram: Cervi orlin View The catheter was advanced over the guidewire using fluoroscopic guidance and roadmap technique. Contrast was injected and angiography performed in the AP and lateral projection through the left common carotid artery demonstrating the left common carotid artery, the left external carotid artery and its branches, and the left internal carotid artery. There is a 58% stenosis of the left internal carotid artery at its origin. Left Common Carotid Artery Angiogram: Cranial View Contrast was injected and angiography performed in the AP and lateral projection through the left common carotid artery demonstrating the left external carotid artery branches, the left internal carotid artery, the middle cerebral artery, and a nterior cerebral artery. No significant stenosis, dissection, or vascular malformation was identified. There is some notable intracranial atherosclerotic disease without high-grade stenosis. Endovascular Surgery: Left internal carotid artery angioplasty and stenting with distal embolic protection device. The 6 Barbadian shuttle was advanced over the guide catheter and wire into the left common carotid artery using roadmap technique. Baseline ACT was measured, and heparin bolus was administered. Using roadmap technique, an emboshield 5 mm protection device was advanced through the stenosis and into the distal left internal carotid artery proximal to the cavernous segment. The distal protection device was deployed and its wire used as a monorail. Glycopyrollate (200micrograms) was administered IV.Using roadmap technique, a Viatrac 14 plus 5 x 30 mm balloon was advanced over the monorail and positioned across the stenosis. Using roadmap technique the balloon was inflated, held for several seconds, deflated, and retrieved. The patient was hemodynamically stable throughout. Brief neurological exam showed no changes or new deficits. Post-angioplasty left common carotid angiogram: Cervical view C ontrast was injected and angiography performed in AP and lateral projection demonstrating anterograde flow in the left common carotid, external carotid, and internal carotid arteries. There has been interval improvement in the stenosis. Wendie reddy roadmap technique, an Acculink [id number] stent was advanced over the guidewire monorail and positioned across the stenosis. The stent was carefully deployed across the stenosis.Using roadmap technique, the distal protection device was retrie enrique using its designated retrieval device. Post-stent left common carotid angiogram: Cervical view Contrast was injected and angiography performed in AP and lateral projection demonstrating anterograde flow in the left common carotid, tiler al carotid, and internal carotid arteries. There has been interval improvement in the stenosis. The residual stenosis is estimated at 3%. Post-stent left common carotid angiogram: Cranial view Contrast was injected and angiography performed th rough the shuttle. Angiography in the AP and lateral views demonstrates anterograde flow in the left external carotid artery branches, left internal carotid, middle cerebral, and anterior cerebral arteries. There is significant improvement i n cerebral perfusion post-stenting. There is no evidence of thrombembolic clots or vessel occlusion. The shuttle was removed and the groin was closed with a 6 Barbadian Angio-Seal. FINDINGS: 1. Diffuse intracranial atherosclerotic diseas e without specific high-grade stenosis. 2. Left internal carotid artery cervical stenosis of 58% successfully treated with carotid artery angioplasty and stenting with distal embolic protection device. IMPRESSION: 1. Diffuse intracranial atherosclerotic disease without specific high-grade stenosis. 2. Left internal carotid artery cervical stenosis of 58% successfully treated with carotid artery angioplasty and stenting with distal embolic protection device. COMMUNICATION: I communicated the findings to the patient's family. Verified by: LUKAS FORD M.D. on Sep 23 2019 5:12P Transcribed by: [facility] on Sep 23 2019 5:12P Dictated by: LUKAS FORD M.D. on Sep 23 2019 5:06P us Lukas Ford MD IMG IR PROCEDURES Final Resul t * (ABNORMAL) POCT Activated Clotting Time (09/11/2019 9:27 AM EDT) ACT (Low Range) 310(H) 122 - 140 SEC SUNQUEST Comment: ACT performed in Angigraphy by Radiology Staff. Results are reported immediately to the physician or primary caregiver. The activated clotting time is performed on patients with diverse clinical characteristics and treatment histories. Therefore, expected values are variable and results must be interpreted in the context of each individual patient. 09/11/2019 9:27 AM EDT 09/17/2019 7:55 AM EDT us Lukas Ford MD LAB POINT OF CARE TEST DOCKED DEVICE ORDERABLES Final Result Performing Organization Address City[facility] Co de Phone Number SUNQUEST * (ABNORMAL) POCT Activated Clotting Time (09/11/2019 8:53 AM EDT) ACT (Low Range) 142(H) 122 - 140 SEC SUNQUEST Comment: ACT performed in Angigraphy by Radiology Staff. Results are reported immediately to the physician or primary caregiver. The activated clotting time is performed on patients with diverse clinical characteristics and treatment histories. Therefore, expected values are variable and results must be interpreted in the context of each individual patient. 09/11/2019 8:53 AM EDT 09/17/2019 7:55 AM EDT us Lukas Ford MD LAB POINT OF CARE TEST DOCKED DEVICE ORDERABLES Final Result SUNQUEST documented in this encounter Visit Diagnoses Diagnosis Occlusion and stenosis of left carotid artery documented in this encounter
--- OUTSIDE RECORDS SUMMARY | 2024-02-01 15:25 | XMS_ITS | Encounter Summary ---
Author Organization [facility] Address [address] [place] [id number] Care Team Providers Care Medical Records Field Technician Name Role Phone Nico Hayward MD Primary Care Provider [phone] Encounter Details Date Type Department Care Team (Late st Contact Info) Description 03/08/2022 Orders Only External Location [address] [place] [id number] Provider, External Social History Tobacco Use Types Packs/Day Years Used Date Smoking Tobacco: Every Day Comments Unknown Sex and Gender Information Value Date Recorded Sex Assigned at Female 04/13/2022 9:50 AM EST Legal Sex Female 7:35 PM EDT Gender Identity Female 04/13/2022 9:50 AM EST Sexual Orientation Straight 04/13/2022 9: 50 AM EST documented as of this encounter Plan of Treatment Not on file documented as of this encounter Procedures Procedure Name Priority Date/Time Associated Diagnosis Comments IR ANGIOGRAM 03/08/2022 12:10 PM EST documented in this encounter Results * IR Angiogram (03/08/2022 12:10 PM EST) Anatomical Region Laterality Modality X-Ray Angiograph y 03/08/2022 12:1 0 PM EST us External Provider IMG IR PROCEDURES Final Result documented in this encounter Visit Diagnoses Not on filedocumented in this encounter Care Teams Medical Records Field Technician Relationship Specialty Start Date End Date Nico Hayward MD [address] [place] [address] PCP - General 07/17/20 documented as of this encounter
--- OUTSIDE RECORDS SUMMARY | 2024-02-01 15:25 | XMS_ITS | Encounter Summary ---
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 cardiopulmonary process. Suggestion of emphysema. CRITICAL RESULT: No. COMMUNICATION: Per this written report. By electronically signing this report, I, the attending physician, attestthat I have personally reviewed the images/data for the aboveexamination(s) and agree with the final edited report. Dictated by Gabriel Major DO on 03/17/2022 11:28 AM Signed by Lashay Jain MD on 03/17/2022 11:47 AM us Nico Juarez MD IMG XR PROCEDURES Final Resu lt * Protime-INR (03/17/2022 11:08 AM EST) Prothrombin Time 12.7 12.0 - 14.3 sec LAB COAGULATION METHOD 03/17/2022 12:28 PM EST [facility] INR 0.9 0.9 - 1.1 LAB COAGULATION METHOD 03/17/2022 12:28 PM EST [facility] Blood Venous blood specimen / Unknown Venipuncture / Unknown 03/17/2022 11:08 AM EST 03/17/2022 11:08 AM EST Narrative [facility] - 03/17/2022 12:28 PM EST OPTIMAL INR RANGES FOR PATIENT ON ORAL ANTICOAGULANT THERAPY Prevention of venous thromboembolism ?INR 2.0 to 3.0 In patients with heart disease: Atrial fibrillation ?INR 2.0 to 3.0 Valvular heart disease ? INR 2.0 to 3.0 Tissue heart valves ?INR 2.0 to 3.0 Mechanical prosthetic valves ? INR 2.5 to 3.[address] ? INR 2.5 to 3.5 us Nico Juarez MD LAB BLOOD ORDERABLES Final R esult [facility] [address] [place] [address] * Hemoglobin A1c (03/17/2022 11:08 AM EST) Hemoglobin A1c 5.2 <5.7 % 03/17/2022 12:46 PM EST [facility] Blood Venous blood specimen / Unknown Venipuncture / Unknown 03/17/2022 11:08 AM EST 03/17/2022 11:08 AM EST Narrative [facility] - 03/17/2022 12:46 PM EST HA1C Interpretive Data: Diagnosis of Diabetes: Diabetic > or = 6.5% Pre-diabetic 5.7 to 6.4% Non-diabetic < or = 5.6% Glycemic Targets for Type I and Type II Diabetics: Non- Adults <7.0% Adults <6.0% Children and Adolescents <7.5% Source: ??[place] [employer]. Standards of medical care in diabetes,2017. Diabetes Care.2017:40 (suppl 1):S1-S135. HbA1c assay performed by an ion-exchange chromatography method that is certified traceable to the DCCT. us Nico Juarez MD LAB BLOOD ORDERABLES Final R esult [facility] [address] [place] [address] * (ABNORMAL) Comprehensive Metabolic Panel, Plasma (03/17/2022 11:08 AM EST) Glucose, Plasma 95 74 - 99 mg/dL 03/17/2022 12:23 PM EST [facility] BUN, Plasma 13 8 - 23 mg/dL 03/17/2022 12:23 PM EST [facility] Creatinine, Plasma 1.31(H) 0.60 - 1.10 mg/dL 03/17/2022 12:23 PM EST [facility] BUN/Creatinine Ratio 10 03/17/2022 12:23 PM EST [facility] Sodium, Plasma 138 136 - 145 mmol/L 03/17/2022 12:23 PM EST [facility] Potassium, Plasma 4.7 3.7 - 4.8 mmol/L 03/17/2022 12:23 PM EST [facility] Comment:Reference range for Serum potassium is 0.2 to 0.5 mmol/L higher than Plasma range. Chloride, Plasma 102 97 - 107 mmol/L 03/17/2022 12:23 PM EST [facility] CO2, Plasma 24 22 - 29 mmol/L 03/17/2022 12:23 PM EST [facility] Anion Gap 12 6 - 16 mmol/L 03/17/2022 12:23 PM EST [facility] Total Calcium, Plasma 9.7 8.9 - 10.2 mg/dL 03/17/2022 12:23 PM EST [facility] Total Protein 7.7 6.3 - 7.9 g/dL 03/17/2022 12:23 PM EST [facility] Albumin, Plasma 4.4 3.5 - 5.2 g/dL 03/17/2022 12:23 PM EST [facility] AST, Plasma 10 9 - 36 U/L 03/17/2022 12:23 PM EST [facility] ALT, Plasma 8 8 - 33 U/L 03/17/2022 12:23 PM EST [facility] Alkaline Phosphatase, Plasma 93 46 - 142 U/L 03/17/2022 12:23 PM EST [facility] Total Bilirubin, Plasma <0.2(L) 0.2 - 1.1 mg/dL 03/17/2022 12:23 PM EST [facility] eGFRcr 44.7 mL/min/1.7 3m*2 03/17/2022 12:23 PM EST [facility] Comment: Reported eGFRcr in mL/min/1.73m2 is based the CKD-EPI 2020 equation that does not use a race coefficient. Effective 09/29/21 our laboratory changed the eGFR calculation to the CKD-EPI 202 equation from the previously reported eGFR, based on the MDRD equation. ??For comparisons between the two equations, please see laboratory website: ??[email or web address] Blood Venous blood specimen / Unknown Venipuncture / Unknown 03/17/2022 11:08 AM EST 03/17/2022 11:08 AM EST us Nico Juarez MD LAB BLOOD ORDERABLES Final R esult Performing Organization Address City/State/[facility] Co de Phone Number [facility] [address] [place] [address] * CBC (03/17/2022 11:08 AM EST) WBC Count 9.21 3.70 - 10.30 10*3/uL LAB HEMATOLOGY METHOD 03/17/2022 12:12 PM EST [facility] RBC Count 4.89 3.90 - 5.20 10*6/uL LAB HEMATOLOGY METHOD 03/17/2022 12:12 PM EST [facility] HGB 13.4 11.2 - 15.7 g/dL LAB HEMATOLOGY METHOD 03/17/2022 12:12 PM EST [facility] HCT 42.7 34.0 - 45.0 % LAB HEMATOLOGY METHOD 03/17/2022 12:12 PM EST [facility] Platelet Count 276 155 - 369 10*3/uL LAB HEMATOLOGY METHOD 03/17/2022 12:12 PM EST [facility] MCV 87 79 - 98 fL LAB HEMATOLOGY METHOD 03/17/2022 12:12 PM EST [facility] MCH 27.4 26.0 - 32.0 pg LAB HEMATOLOGY METHOD 03/17/2022 12:12 PM EST [facility] MCHC 31.4 30.7 - 35.5 g/dL LAB HEMATOLOGY METHOD 03/17/2022 12:12 PM EST [facility] RDW 13.7 11.5 - 14.5 % LAB HEMATOLOGY METHOD 03/17/2022 12:12 PM EST [facility] MPV 9.9 8.8 - 12.5 fL LAB HEMATOLOGY METHOD 03/17/2022 12:12 PM EST [facility] nRBC 0.0 <=0.0 per 100 WBCs LAB HEMATOLOGY METHOD 03/17/2022 12:12 PM EST [facility] Blood Venous blood specimen / Unknown Venipuncture / Unknown 03/17/2022 11:08 AM EST 03/17/2022 11:08 AM EST Nico Juarez MD LAB BLOOD ORDERABLES Final R esult Performing Organization Address City/State/[facility] Co de Phone Number [facility] [address] [place] [address] documented in this encounter Visit Diagnoses Diagnosis Coronary artery disease, unspecified vessel or lesion type, unspecified whether angina present, unspecified whether [place] or transplanted heart- Primary Coronary artery disease, unspecified vessel or lesion type, unspecified whether angina present, unspecified whether [place] or transplanted heart Coronary artery disease, unspecified vessel or lesion type, unspecified whether angina present, unspecified whether [place] or transplanted heart Coronary artery disease, unspecified vessel or lesion type, unspecified whether angina present, unspecified whether [place] or transplanted heart documented in this encounter Additional Health Concerns Assessment Noted Time A fall risk assessment has been complete d for the patient 03/17/2022 9:15 AM EST documented as of this encounter Care Teams Fuller Brush Man Relationship Specialty Start Date End Date Nico Hayward MD [address] [place] [address] PCP - General 07/17/20 documented as of this encounter
--- OUTSIDE RECORDS SUMMARY | 2024-02-01 15:25 | XMS_ITS | Encounter Summary ---
Author Organization 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
--- OUTSIDE RECORDS SUMMARY | 2024-02-01 15:25 | XMS_ITS | Encounter Summary ---
Author Organization [facility] Address [address] [place] [address] Care Team Providers Care Rim Fire Priming Operator Name Role Phone Nico Hayward MD Primary Care Provider + [phone] Encounter Details Date Type Department Care Team (Latest Contact Info) Description 03/17/2022 Travel Social History Tobacco Use Types Packs/Day [...] documented as of this encounter Care Teams Rim Fire Priming Operator Relationship Specialty Start Date End Date Nico Hayward MD [address] [place] [address] PCP - General 07/17/20 documented as of this encounter
--- OUTSIDE RECORDS SUMMARY | 2024-02-01 15:25 | XMS_ITS | Encounter Summary ---
Author Organization [facility] Address [address] [place] [address] Care Team Providers Care Industrial Machinery Mechanic Name Role Phone Nico Hayward MD Primary Care Provider + [phone] Ryan Rice MD Unavailable [phone] Encounter Details Date Type Department Care Team (Late st Contact Info) Description 02/22/2022 Orders Only External Location [address] [place] [address] Ryan Rice MD [address] [place] [address] Social History Tobacco Use Types Packs/Day Years [...] Procedure Name Priority Date/Time Associated Diagnosis Comments VAS US CAROTID DUPLEX BILATERAL 02/22/2022 11:18 AM EST documented in this encounter Results * VAS US Carotid Duplex Bilateral (02/22/2022 11:18 AM EST) Anatomical Region Laterality Modality Head, Neck, Vascular Ultrasound 02/22/2022 11:1 8 AM EST us Ryan Rice MD CV VASCULAR PROCEDURES Fin al Result documented in this encounter Visit Diagnoses Not on filedocumented in this encounter Care Teams Industrial Machinery Mechanic Relationship Specialty Start Date End Date Nico Hayward MD [address] [place] [address] PCP - General 07/17/20 Ryan Rice MD [address] [place] [address] Referring Physician Cardiology 03/21/22 documented as of this encounter
--- OUTSIDE RECORDS SUMMARY | 2024-02-01 15:25 | XMS_ITS | Encounter Summary ---
Author Organization [facility] Address [address] [place] [address] Care Team Providers Care Fleet Maintenance Foreman Name Role Phone Nico Hayward MD Primary Care Provider + [phone] Encounter Details Date Type Department Care Team (Latest Contact Info) Description 03/17/2022 11:39 AM EST - 03/17/2022 12:49 PM EST Hospital Encounter P[facility] H Pulmonary Function Testing [address] [place] [address] Coronary artery disease, unspecified vessel or lesion type, unspecified whether angina present, unspecified whether [place] or transplanted heart Discharge Disposition: Home or [...] AM EST documented as of this encounter Medications [...] stools 20 capsule 04/14/2022 3 HYDROcodone-acet aminophen ([place]) 5-325 MG tablet Take 1 tablet (5 mg of hydrocodone total) by mouth every 6 (six) hours if needed for severe pain for up to 7 days. 28 tablet 04/14/2022 3 lisinopril 5 MG tablet Take 1 tablet (5 mg total) by mouth 1 (one) time each day. 30 tablet 2 04/15/2022 3 metoprolol succinate XL (Toprol-XL) 25 MG 24 hr tablet Take 25 mg by mouth 1 (one) time each day. 03/03/2022 3 nitroglycerin (Nitrostat) 0.[address] 0.4 mg under the tongue every 5 (five) minutes if needed for chest pain. 3 documented as of this encounter Plan of Treatment Not on file documented as of this encounter Procedures Procedure Name Priority Date/Time Associated Diagnosis Comments HC DIFFUSING CAPACITY - CARBON MONOXIDE DIFFUSING CAPACITY Routine 03/17/2022 1:10 PM EST Coronary artery disease, unspecified vessel or lesion type, unspecified whether angina present, unspecified whether [place] or transplanted heart documented in this encounter Results * PFT (Full) (03/17/2022 1:10 PM EST) [id number] 2.14 L 03/17/2022 12:28 PM EST VYAIRE PFT SLR7DHW 2.18 L 03/17/2022 12:28 PM EST VYAIRE [...] 12:28 PM EST VYAIRE PFT FVC PREDAUTH US_Tenzinr GLI (2012) 03/17/2022 12:28 PM EST VYAIRE PFT FVC Z-SCORE -1.68 -1.75 03/17/2022 12:28 PM EST VYAIRE PFT [id number] 1.54 L 03/17/2022 12:28 PM EST VYAIRE PFT FEV1 PRE 1.58 L 03/17/2022 12:28 PM EST VYAIRE PFT FEV1 PRED 2.32 03/17/2022 12:28 PM EST VYAIRE PFT FEV1 LLN 1.70 03/17/2022 12:28 PM EST VYAIRE PFT MJB4POBXYDQXW -1.97 03/17/2022 12:28 PM EST VYAIRE PFT FEV1_Pre%Pred 68 % % 03/17/2022 12:28 PM EST VYAIRE PFT ADX8HIRKAVPDAF -2.07 03/17/2022 12:28 PM EST VYAIRE PFT XVJ3XTDT%PRED 66 % % 03/17/2022 12:28 PM EST VYAIRE PFT MVS9MKGO -39.00 03/17/2022 12:28 PM EST VYAIRE PFT FEV1%CHG -2 % % 03/17/2022 12:28 PM EST VYAIRE PFT FEV[facility]ED[facility] (2011[facility] 03/17/2022 12:28 PM EST VYAIRE PFT FEV1 Z-SCORE -1.97 -2.07 03/17/2022 12:28 PM EST VYAIRE PFT LAN8SPU9DZEH 71.69 % 03/17/2022 12:28 PM EST VYAIRE PFT FEV1/FVC PRE 72.39 % 03/17/2022 12:28 PM EST VYAIRE PFT KMQ0CRJOMRX 78 03/17/2022 12:28 PM EST VYAIRE PFT FUE0HXUKLW 65 03/17/2022 12:28 PM EST VYAIRE PFT OUW7HWZIDBDHCVPG -0.79 03/17/19 12:28 PM EST VYAIRE PFT VNR3KPSOIB%PRED 92 % % 12:28 PM EST VYAIRE PFT HVY3UHDNEJRXXTRHK -0.88 023 12:28 PM EST VYAIRE PFT QSY8DWBROSJ%PRED 92 % % 03/17/19 23 12:28 PM EST VYAIRE PFT UEA8DEYLYST -705 03/17/2022 12:28 PM EST VYAIRE PFT XRZ3KXT%CHG -1 % % 03/17/2022 12:28 PM EST VYAIRE PFT DXG1AYCDCWSX US_Quanjer GLI (2011) 03/17/2022 12:28 PM EST VYAIRE PFT MHU8DRGSBRKIO -1 -1 03/17/2022 12:28 PM EST VYAIRE PFT EKX54-47%_POST 1.03 L/s 03/17/2022 12:28 PM EST VYAIRE PFT LUB94-60% PRE 1.16 L/s 03/17/2022 12:28 PM EST VYAIRE PFT EOS37-46%_Pred 1.98 03/17/2022 12:28 PM EST VYAIRE PFT EOU6394%LLN 0.94 03/17/2022 12:28 PM EST VYAIRE PFT GHC9894%PREZSCORE -1.23 023 12:28 PM EST VYAIRE PFT WBZ2820%PRE%PRED 59 % % 03/17/19 12:28 PM EST VYAIRE PFT SKT6984%POSTZSCORE -1.47 2022 12:28 PM EST VYAIRE PFT EWE4308%POST%PRED 52 % % 023 12:28 PM EST VYAIRE PFT FFB5480%CHNG -134.00 03/17/2022 12:28 PM EST VYAIRE PFT OMR1490%%CHG -12 % % 03/17/2022 12:28 PM EST VYAIRE PFT POD5245%PREDWMCHEALTH_Quanjer GLI (2011) 03/17/2022 12:28 PM EST VYAIRE PFT HRC4XREI 3.82 L/s 03/17/2022 12:28 PM EST VYAIRE [...] 03/17/2022 12:28 PM EST VYAIRE PFT PEF PREDAUTH NHANES III (1998) 03/17/2022 12:28 PM EST VYAIRE PFT IIYINXHVFWAGKFUI7IQZ 12.12 ml/(min* mmHg) 03/17/2022 12:28 PM EST [...] -2.71 03/17/2022 12:28 PM EST VYAIRE PFT FKHVRGWLAXDNKFCBI7QS E 12.12 ml/(min* mmHg) 03/17/2022 12:28 PM EST VYAIRE PFT DLCOCSINGLEBREATH PRED 19.42 03/17/2022 12:28 PM EST VYAIRE PFT DLCOCSINGLEBREATH LLN 14.68 03/17/2022 12:28 PM EST VYAIRE PFT DLCOCSINGLEBREATH Z-SCORE -2.71 03/17/2022 12:28 PM EST VYAIRE PFT DLCOCSINGLEBREATH % PRED 62.4 % 03/17/2022 12:28 PM EST VYAIRE PFT DLCOCSINGLEBREATH PREDAUTH Stanojevic TLCO GLI (2019) 03/17/2022 12:28 PM EST VYAIRE PFT RQBZCM6CTM 3.66 ml/(min* mmHg*L) 03/17/2022 12:28 PM EST VYAIRE PFT DLCOVAPRED 4.14 03/17/2022 12:28 PM EST VYAIRE PFT DLCOVALLN 3.17 03/17/2022 12:28 PM EST VYAIRE PFT DLCOVAZSCORE -0.78 03/17/2022 12:28 PM EST VYAIRE PFT DLCOVA%PRED 88.5 % 03/17/2022 12:28 PM EST VYAIRE PFT DLCOVAPREDAUTH Stanojevic TLCO GLI (2019) 03/17/2022 12:28 PM EST VYAIRE PFT DLCOVAZSCORE -0.78 03/17/2022 12:28 PM EST VYAIRE PFT RJIIRZFHP7LXE 3.66 ml/(min* mmHg*L) 03/17/2022 12:28 PM EST VYAIRE PFT DLCOC SB/VA PRED 4.14 03/17/19 12:28 PM EST VYAIRE PFT DLCOC SB/VA LLN 3.17 12:28 PM EST VYAIRE PFT DLCOC SB/VA Z-SCORE -0.78 03/17 12:28 PM EST VYAIRE PFT DLCOC SB/VA % PRED 88.5 % 2022 12:28 PM EST VYAIRE PFT DLCOC SB/VA PREDAUTH Stanojevic TLCO GLI (2019) 03/17/2022 12:28 PM EST VYAIRE PFT DLCOC SB/VA Z-SCORE -0.78 03/17 12:28 PM EST VYAIRE PFT XXTLCTMYQYTKTF8BMG 3.31 L 2022 12:28 PM EST VYAIRE PFT VASINGLEBREATH PRED 4.68 03/17 12:28 PM EST VYAIRE PFT VASINGLEBREATH LLN 3.75 2022 12:28 PM EST VYAIRE PFT VASINGLEBREATH Z-SCORE -2.49 03/17/2022 12:28 PM EST VYAIRE PFT VASINGLEBREATH % PRED 70.9 % 03/17/2022 12:28 PM EST VYAIRE PFT VASINGLEBREATH PREDAUTH Stanojevic TLCO GLI (2019) 03/17/2022 12:28 PM EST VYAIRE PFT VASINGLEBREATH Z-SCORE -2.49 03/17/2022 12:28 PM EST VYAIRE PFT JIVDEULZOYWBDGK7NYR 2.28 L 03/17 12:28 PM EST VYAIRE PFT IVCSINGLEBREATH PRED 2.98 03/06 12:28 PM EST VYAIRE PFT IVCSINGLEBREATH LLN 2.19 03/17 12:28 PM EST VYAIRE PFT IVCSINGLEBREATH Z-SCORE -1.46 03/17/2022 12:28 PM EST VYAIRE PFT IVCSINGLEBREATH % PRED 76.5 % 03/17/2022 12:28 PM EST VYAIRE PFT IVCSINGLEBREATH PREDAUTH US_Quanjer GLI (2011) 03/17/2022 12:28 PM EST VYAIRE PFT WRG1VRM 4.04 L 03/17/2022 12:28 PM EST VYAIRE [...] (2019)__ 03/17/2022 12:28 PM EST VYAIRE PFT WZDCTMGM3EDB 2.22 L 03/17/2022 12:28 PM EST VYAIRE [...] (2019)__ 03/17/2022 12:28 PM EST VYAIRE PFT RIB0RPV 0.94 L 03/17/2022 12:28 PM EST VYAIRE PFT ERVPRED 0.76 03/17/2022 12:28 PM EST VYAIRE PFT ERVLLN 0.22 03/17/2022 12:28 PM EST VYAIRE PFT ERVULN 1.60 03/17/2022 12:28 PM EST VYAIRE PFT ERV Z-SCORE 0.39 03/17/2022 12:28 PM EST VYAIRE PFT ERV%PRED 122.9 % 03/17/2022 12:28 PM EST VYAIRE PFT ERVPREDAUTH Lu Lung volumes GLI (2019)__ 03/17/2022 12:28 PM EST VYAIRE PFT RV0PRE 1.28 L 03/17/2022 12:28 PM EST VYAIRE PFT RVPRED 1.94 03/17/2022 12:28 PM EST VYAIRE PFT RVLLN 1.17 03/17/2022 12:28 PM EST VYAIRE PFT RVULN 2.93 03/17/2022 12:28 PM EST VYAIRE PFT RVZSCORE -1.38 03/17/2022 12:28 PM EST VYAIRE PFT RV%PRED 66.1 % 03/17/2022 12:28 PM EST VYAIRE PFT RVPREDAUTH Ul Lung volumes GLI (2019)__ 03/17/2022 12:28 PM EST VYAIRE PFT RV%AGC3WNK 31.68 % 03/17/2022 12:28 PM EST VYAIRE PFT RV%TLCPRED 38 03/17/2022 12:28 PM EST VYAIRE PFT RV%TLCLLN 26 03/17/2022 12:28 PM EST VYAIRE PFT RV%TLCULN 50 03/17/2022 12:28 PM EST VYAIRE PFT RV%TLCZSCORE -0.81 03/17/2022 12:28 PM EST VYAIRE PFT RV%TLC%PRED 84.2 % 03/17/2022 12:28 PM EST VYAIRE PFT RV%TLCPREDAUTH Lu Lung volumes GLI (2019)__ 03/17/2022 12:28 PM EST VYAIRE PFT ELI9BLM 2.27 L 03/17/2022 12:28 PM EST VYAIRE PFT Anatomical Region Laterality Modality PFT 03/17/2022 11:5 4 AM EST Narrative 03/29/2022 11:11 AM EST Pulmonary Function Testing Report Eddi Hawkins 66 y.o. underwent pulmonary function testing today at the [facility]. All tests were appropriately administered via ATS/ERS [...] There is no prior study for comparison. Nico Rhoades MD PFT ORDERABLES Final Result documented in this encounter Visit Diagnoses Diagnosis Coronary artery disease, unspecified vessel or lesion type, unspecified whether angina present, unspecified whether [place] or transplanted heart documented in this encounter Additional Health Concerns Assessment Noted Time A fall risk assessment has been complete d for the patient 03/17/2022 9:15 AM EST documented as of this encounter Care Teams Fleet Maintenance Foreman Relationship Specialty Start Date End Date Nico Hayward MD [address] [place] [address] PCP - General 07/17/20 documented as of this encounter
--- OUTSIDE RECORDS SUMMARY | 2024-02-01 15:25 | XMS_ITS | Encounter Summary ---
Author Organization [facility] Address [address] [place] [address] Care Team Providers Care Senior Inspector Name Role Phone Nico Hayward MD Primary Care Provider + [phone] Reason for Referral * Imaging (Routine) - Closed Specialty Diagnoses / Procedures Referred By Contac t Referred To Contact Cardiology Diagnoses Coronary artery disease, unspecified vessel or lesion type, unspecified whether angina present, unspecified whether [place] or transplanted heart Procedures VAS US Venous Duplex Lower Extremity Bilateral Mapping Nico Juarez MD [address] [address] Phone: tel: fax: Referral ID Status Reason Start Date Expiration Date V isits Requested Visits Authorized [id number] Closed Perform Procedure 03/17/2022 09/16/2023 1 1 Reason for Visit * Imaging (Routine) - Closed Specialty Diagnoses / Procedures Referred By Contac t Referred To Contact Cardiology Diagnoses Coronary artery disease, unspecified vessel or lesion type, unspecified whether angina present, unspecified whether [place] or transplanted heart Procedures VAS US Venous Duplex Lower Extremity Bilateral Mapping Nico Juarez MD [address] [address] Phone: tel: fax: Referral ID Status Reason Start Date Expiration Date V isits Requested Visits Authorized [id number] Closed Perform Procedure 03/17/2022 09/16/2023 1 1 Encounter Details Date Type Department Care Team (Latest Contact Info) Description 03/17/2022 12:50 PM EST - 03/17/2022 11:59 PM EST Hospital Encounter P[facility] H Vascular Lab [address] [place] [address] Coronary artery disease, unspecified vessel or lesion type, unspecified whether angina present, unspecified whether [place] or transplanted heart Discharge Disposition: Home or [...] Job Start Date Job End Date retired [employer] Not on file Not on file Not [...] stools 20 capsule 04/14/2022 3 HYDROcodone-acet aminophen ([place]) 5-325 MG tablet Take 1 tablet (5 [...] Priority Date/Time Associated Diagnosis Comments VAS US VENOUS DUPLEX LOWER EXTREMITY BILATERAL Routine 03/17/2022 1:25 PM EST Coronary artery disease, unspecified vessel or lesion type, unspecified whether angina present, unspecified whether [place] or transplanted heart documented in this encounter Results * VAS US Venous [...] DUPLEX LOWER EXTREMITY BILATERAL ordered by NICO JURAEZ [id number] CLINICAL INDICATION: preop planning for CABG TECHNIQUE: [...] VENOUS DUPLEX LOWER EXTREMITY BILATERAL ordered byNICO JUAREZ, [id number] CLINICAL INDICATION: preop planning for CABG TECHNIQUE: [...] Shola Garza MD on 03/20/2022 10:31 AM Nico Juarez MD CV VASCULAR PROCEDURES Final Result documented in this encounter Visit Diagnoses Diagnosis Coronary artery disease, unspecified vessel or lesion type, unspecified whether angina present, unspecified whether [place] or transplanted heart documented in this encounter Additional Health Concerns Assessment Noted Time A fall risk assessment has been complete d for the patient 03/17/2022 9:15 AM EST documented as of this encounter Care Teams Senior Inspector Relationship Specialty Start Date End Date Nico Hayward MD [address] [place] [address] [phone] (work) PCP - General 07/17/20 documented as of this encounter
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
--- OUTSIDE RECORDS SUMMARY | 2024-02-01 15:25 | XMS_ITS | Encounter Summary ---
Author Organization [facility] Address [address] [id number] Care Team Providers Care Acid Tank Liner Name Role Phone Nico Hayward MD Primary Care Provider + [phone] Ryan Rice MD Unavailable [phone] Encounter Details Date Type Department Care Team (Late st Contact Info) Description 03/25/2022 Telephone [place] [facility] Pre[facility]op Clinic [address], [address] [place] [address] Willy Dillard MD [address] [facility] [address] [place] [address] Social History Tobacco Use Types Packs/Day Years [...] documented as of this encounter Care Teams Acid Tank Liner Relationship Specialty Start Date End Date Nico Hayward MD [address] [place] [id number] PCP - General 07/17/20 Ryan Rice MD [address] [place] [address] Referring Physician Cardiology 03/21/22 documented as of this encounter
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
--- OUTSIDE RECORDS SUMMARY | 2024-02-01 15:25 | XMS_ITS | Encounter Summary ---
Author Organization Healthcare Address [address] [place] [address] Care Team Providers Care Wood Hacker Name Role Phone Nico Hayward MD Primary Care Provider + [phone] Encounter Details Date Type Department Care Team (Latest Contact Info) Description 03/17/2022 11:12 AM EST - 03/17/2022 11:38 AM EST Hospital Encounter [facility] Rad[facility] [address], [address] [place] [address] Coronary artery disease, unspecified vessel or lesion type, unspecified whether angina present, unspecified whether twenty[place]nine [place] or transplanted heart Discharge Disposition: Home or [...] stools 20 capsule 04/14/2022 3 HYDROcodone-acet aminophen ([place]) 5-325 MG tablet Take 1 tablet (5 [...] Diagnosis Comments XR CHEST 2 VIEWS Routine 03/17/2022 11:1 8 AM EST Coronary artery disease, unspecified vessel or lesion type, unspecified whether angina present, unspecified whether [place]nine [place] or transplanted heart documented in this encounter Results * XR Chest 2 Views (03/17/2022 11:18 [...] CHEST 2 VIEWS ordered by NICO JUAREZ [id number] CLINICAL INDICATION: CAD TECHNIQUE: PA and lateral [...] CHEST 2 VIEWS ordered by NICO JUAREZ, [id number] CLINICAL INDICATION: CAD TECHNIQUE: PA and lateral [...] Lashay Jain MD on 03/17/2022 11:47 AM Nico Juarez MD IMG XR PROCEDURES Final Resu lt documented in this encounter Visit Diagnoses Diagnosis Coronary artery disease, unspecified vessel or lesion type, unspecified whether angina present, unspecified whether twenty[place]nine [place] or transplanted heart documented in this encounter Additional Health Concerns Assessment Noted Time A fall risk assessment has been complete d for the patient 03/17/2022 9:15 AM EST documented as of this encounter Care Teams Wood Hacker Relationship Specialty Start Date End Date Nico Hayward MD [address] [place] [address] PCP - General 07/17/20 documented as of this encounter
--- OUTSIDE RECORDS SUMMARY | 2024-02-01 15:25 | XMS_ITS | Encounter Summary ---
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 Anesthesia Intraprocedure Given 04/05/2022 4:25 PM EST 150 mg Given 04/05/2022 4:19 PM EST 75 mg rocuronium (ZeMuron) injection Intravenous, As needed, Starting on Mon04/05/22 at 1223, Until Mon04/05/22 at 1859, Routine, Anesthesia Intraprocedure Given 04/05/2022 4:06 PM EST 10 mg Given 04/05/2022 3:27 PM EST 10 mg Given 04/05/2022 3:01 PM EST 10 mg sodium chloride 0.9% infusion 20 mL/hr, Intravenous, Continuous, Starting on Mon04/05/22 at 1130, Until Mon04/05/22 at 2202, Routine Rate/Dose Change 04/05/2022 6:00 PM EST 90 mL/hr Rate/Dose Change 04/05/2022 5:39 PM EST 100 mL/ hr Rate/Dose Change 04/05/2022 4:17 PM EST 125 mL/ hr tranexamic acid (Cyklokapron) 1,000 mg in sodium chloride 0.9% 100 mL (10 mg/mL) infusion Intravenous, Continuous PRN, Starting on Mon04/05/22 at 1350, Until Mon04/05/22 at 1859, Routine New Bag 04/05/2022 1:50 PM EST 1 mg/kg/hr 7.58 mL/hr tranexamic acid (Cyklokapron) injection Intravenous, As needed, Starting on Mon04/05/22 at 1350, Until Mon04/05/22 at 1859, Routine, Anesthesia Intraprocedure Given 04/05/2022 1:50 PM EST 1,000 mg documented in this encounter Additional Health Concerns Assessment Noted Time A fall risk assessment has been complete d for the patient 03/17/2022 9:15 AM EST documented as of this encounter Care Teams Environmental Services Coordinator Relationship Specialty Start Date End Date Nico Hayward MD [address] [place] [address] PCP - General 07/17/20 Ryan Rice MD [facility] [place] [address] Referring Physician Cardiology 03/21/22 documented as of this encounter
--- OUTSIDE RECORDS SUMMARY | 2024-02-01 15:25 | XMS_ITS | Encounter Summary ---
Author Organization [facility] Address [address] [place] [id number] Care Team Providers Care Refrigeration Houseman Name Role Phone Nico Hayward MD Primary Care Provider + [phone] Ryan Rice MD Unavailable [phone] Encounter Details Date Type Department Care Team (Latest Contact Info) Description 04/04/2022 Travel Social History Tobacco Use Types Packs/Day [...] Job Start Date Job End Date retired [employer] Not on file Not on file Not on file COVID-19 Exposure Response Date Recorded In the last 10 days, have khloe u been in contact with someone who was confirmed or suspected to have Coronavirus/COVID-19? No / Unsure 04/04/2022 1:34 PM EST documented as of this encounter Plan of Treatment Not on file documented as of this encounter Visit Diagnoses Not on filedocumented in this encounter Additional Health Concerns Assessment Noted Time A fall risk assessment has been complete d for the patient 03/17/2022 9:15 AM EST documented as of this encounter Care Teams Refrigeration Houseman Relationship Specialty Start Date End Date Nico Hayward MD [address] [place] [address] PCP - General 07/17/20 Ryan Rice MD [address] [facility] [address] [place] [address] Referring Physician Cardiology 03/21/22 documented as of this encounter
--- OUTSIDE RECORDS SUMMARY | 2024-02-01 15:25 | XMS_ITS | Encounter Summary ---
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 (04/10/2022 2:18 PM EST) Glucose, Plasma 115(H) 74 - 99 mg/dL 04/10/2022 3:07 PM EST [facility] BUN, Plasma 39(H) 8 - 23 mg/dL 04/10/2022 3:07 PM EST [facility] Creatinine, Plasma 1.50(H) 0.60 - 1.10 mg/dL 04/10/2022 3:07 PM EST [facility] BUN/Creatinine Ratio 26 04/10/2022 3:07 PM EST [facility] Sodium, Plasma 141 136 - 145 mmol/L 04/10/2022 3:07 PM EST [facility] Potassium, Plasma 4.4 3.7 - 4.8 mmol/L 04/10/2022 3:07 PM EST [facility] Comment:Reference range for Serum potassium is 0.2 to 0.5 mmol/L higher than Plasma range. Chloride, Plasma 104 97 - 107 mmol/L 04/10/2022 3:07 PM EST [facility] CO2, Plasma 30(H) 22 - 29 mmol/L 04/10/2022 3:07 PM EST [facility] Anion Gap 7 6 - 16 mmol/L 04/10/2022 3:07 PM EST [facility] Total Calcium, Plasma 8.4(L) 8.9 - 10.2 mg/dL 04/10/2022 3:07 PM EST [facility] Phosphorus, Plasma 2.8 2.5 - 4.5 mg/dL 04/10/2022 3:07 PM EST [facility] Albumin, Plasma 2.9(L) 3.5 - 5.2 g/dL 04/10/2022 3:07 PM EST [facility] eGFRcr 38.0 mL/min/1.7 3m*2 04/10/2022 3:07 PM EST [facility] Comment: Reported eGFRcr in mL/min/1.73m2 is based the CKD-EPI 2021 equation that does not use a race coefficient. Effective 09/29/21 our laboratory changed the eGFR calculation to the CKD-EPI 2021 equation from the previously reported eGFR, based on the MDRD equation. ??For comparisons between the two equations, please see laboratory website: ??[email or web address] Blood Venous blood specimen / Unknown Venipuncture / Unknown 04/10/2022 2:18 PM EST 04/10/2022 2:31 PM EST us Greg Juarez MD LAB BLOOD ORDERABLES Final R esult [facility] [address] [place] [address] [place] [address] * POCT glucose meter (04/10/2022 8:06 AM EST) POCT Glucose 85 74 - 99 mg/dL 04/10/2022 8:10 AM EST [facility] Comment:Accuracy of a glucos e result [...] for testing. Comment 04/10/2022 8:10 AM EST [facility] Clinical Research Manager ID Elizabeth Torres 04/10/2022 8:10 AM EST [facility] Device ID [id number] 04/10/2022 8:10 AM EST [facility] Specimen Type POC Capillary 04/10/2022 8:10 AM EST [facility] Blood Capillary blood specimen / Unknown 04/10/2022 8:06 AM EST 04/10/2022 8:10 AM EST us Greg Juarez MD LAB POINT OF CARE TE ST DOCKED DEVICE UNSOLICITED RESULTS Final Result [facility] [address] [place] [address] * XR Chest 1 View (04/10/2022 6:12 [...] CHEST 1 VIEW ordered by GREG JUAREZ, [id number] CLINICAL INDICATION: post op cabg TECHNIQUE: Single AP view of chest. COMPARISON: Chest 1 day prior FINDINGS: Support devices in similar position. Bibasilar lung opacities are similar. Mild increased interstitial prominence likely component of edema. No pneumothorax. Procedure Note Panchito Gaffney MD - 04/10/2022 Exam/Procedure: XR CHEST 1 VIEW ordered by GREG JUAREZ, [id number] CLINICAL INDICATION: post op cabg TECHNIQUE: Single [...] POCT glucose meter (04/10/2022 2:44 AM EST) POCT Glucose 103(H) 74 - 99 mg/dL 04/10/2022 2:55 AM EST [facility] Comment:Accuracy of a glucos e result [...] for testing. Comment 04/10/2022 2:55 AM EST [facility] Clinical Research Manager ID Caren Rojo 04/10/19 23 2:55 AM EST [facility] Device ID [id number] 04/10/2022 2:55 AM EST [facility] Specimen Type POC Venous 04/10/2022 2:55 AM EST [facility] Blood Venous blood specimen / Unknown 04/10/2022 2:44 AM EST 04/10/2022 2:55 AM EST us Greg Juarez MD LAB POINT OF CARE TE ST DOCKED DEVICE UNSOLICITED RESULTS Final Result [facility] [address] [place] [address] * (ABNORMAL) Magnesium (04/10/2022 2:35 AM EST) Magnesium, Plasma 2.5(H) 1.9 - 2.4 mg/dL 04/10/2022 3:27 AM EST [facility] Blood Venous blood specimen / Unknown Venipuncture / Unknown 04/10/2022 2:35 AM EST 04/10/2022 2:56 AM EST Greg Juarez MD LAB BLOOD ORDERABLES Final R esult [facility] [address] [place] [address] * (ABNORMAL) Renal function panel (04/10/2022 2:35 AM EST) Glucose, Plasma 105(H) 74 - 99 mg/dL 04/10/2022 3:27 AM EST [facility] BUN, Plasma 42(H) 8 - 23 mg/dL 04/10/2022 3:27 AM EST [facility] Creatinine, Plasma 1.56(H) 0.60 - 1.10 mg/dL 04/10/2022 3:27 AM EST [facility] BUN/Creatinine Ratio 04/10/2022 3:27 AM EST [facility] Sodium, Plasma 139 136 - 145 mmol/L 04/10/2022 3:27 AM EST [facility] Potassium, Plasma 3.9 3.7 - 4.8 mmol/L 04/10/2022 3:27 AM EST [facility] Comment:Reference range for Serum potassium is 0.2 to 0.5 mmol/L higher than Plasma range. Chloride, Plasma 103 97 - 107 mmol/L 04/10/2022 3:27 AM EST [facility] CO2, Plasma 29 22 - 29 mmol/L 04/10/2022 3:27 AM EST [facility] Anion Gap 7 6 - 16 mmol/L 04/10/2022 3:27 AM EST [facility] Total Calcium, Plasma 8.4(L) 8.9 - 10.2 mg/dL 04/10/2022 3:27 AM EST [facility] Phosphorus, Plasma 2.6 2.5 - 4.5 mg/dL 04/10/2022 3:27 AM EST [facility] Albumin, Plasma 3.0(L) 3.5 - 5.2 g/dL 04/10/2022 3:27 AM EST [facility] eGFRcr 36.3 mL/min/1.7 3m*2 04/10/2022 3:27 AM EST [facility] Comment: Reported eGFRcr in mL/min/1.73m2 is based the CKD-EPI 2020 equation that does not use a race coefficient. Effective 09/29/21 our laboratory changed the eGFR calculation to the CKD-EPI 202 equation from the previously reported eGFR, based on the MDRD equation. ??For comparisons between the two equations, please see laboratory website: ??[email or web address] Blood Venous blood specimen / Unknown Venipuncture / Unknown 04/10/2022 2:35 AM EST 04/10/2022 2:56 AM EST Greg Juarez MD LAB BLOOD ORDERABLES Final R esult [facility] [address] [place] [address] * (ABNORMAL) CBC W/O Differential (04/10/2022 2:35 AM EST) WBC Count 10.49(H) 3.70 - 10.30 10*3/uL LAB HEMATOLOGY METHOD 04/10/2022 3:07 AM EST [facility] RBC Count 2.97(L) 3.90 - 5.20 10*6/uL LAB HEMATOLOGY METHOD 04/10/2022 3:07 AM EST [facility] HGB 8.3(L) 11.2 - 15.7 g/dL LAB HEMATOLOGY METHOD 04/10/2022 3:07 AM EST [facility] HCT 26.6(L) 34.0 - 45.0 % LAB HEMATOLOGY METHOD 04/10/2022 3:07 AM EST [facility] Platelet Count 202 155 - 369 10*3/uL LAB HEMATOLOGY METHOD 04/10/2022 3:07 AM EST [facility] MCV 90 79 - 98 fL LAB HEMATOLOGY METHOD 04/10/2022 3:07 AM EST [facility] MCH 27.9 26.0 - 32.0 pg LAB HEMATOLOGY METHOD 04/10/2022 3:07 AM EST [facility] MCHC 31.2 30.7 - 35.5 g/dL LAB HEMATOLOGY METHOD 04/10/2022 3:07 AM EST [facility] RDW 15.0(H) 11.5 - 14.5 % LAB HEMATOLOGY METHOD 04/10/2022 3:07 AM EST [facility] MPV 10.8 8.8 - 12.5 fL LAB HEMATOLOGY METHOD 04/10/2022 3:07 AM EST [facility] nRBC 0.0 <=0.0 per 100 WBCs LAB HEMATOLOGY METHOD 04/10/2022 3:07 AM EST [facility] Blood Venous blood specimen / Unknown Venipuncture / Unknown 04/10/2022 2:35 AM EST 04/10/2022 2:56 AM EST us Greg Juarez MD LAB BLOOD ORDERABLES Final R esult Performing Organization Address City/State/[facility] Co de Phone Number [facility] [address] [place] [address] * (ABNORMAL) POCT glucose meter (04/09/2022 10:54 PM EST) POCT Glucose 100(H) 74 - 99 mg/dL 04/09/2022 11:00 PM EST [facility] Comment:Accuracy of a glucos e result [...] for testing. Comment 04/09/2022 11:00 PM EST [facility] Clinical Research Manager ID Caren Rojo 04/09/19 11:00 PM EST [facility] Device ID [id number] 04/09/2022 11:00 PM EST [facility] Specimen Type POC Venous 04/09/2022 11:00 PM EST [facility] Blood Venous blood specimen / Unknown 04/09/2022 10:54 PM EST 04/09/2022 11:00 PM EST us Greg Juarez MD LAB POINT OF CARE TE ST DOCKED DEVICE UNSOLICITED RESULTS Final Result Performing Organization Address City/[facility]/ZIP Co de Phone Number [facility] [address] [place] [address] * (ABNORMAL) POCT glucose meter (04/09/2022 10:50 PM EST) Pathologist [facility] POCT Glucose 57(L) 74 - 99 mg/dL [...] for testing. Comment 04/09/2022 10:55 PM EST [facility] Clinical Research Manager ID Caren Rojo 04/09/19 10:55 PM EST [facility] Device ID [id number] 04/09/2022 10:55 PM EST [facility] Specimen Type POC Capillary 04/09/2022 10:55 PM EST [facility] Blood Capillary blood specimen / Unknown 04/09/2022 10:50 PM EST 04/09/2022 10:55 PM EST Greg Juarez MD LAB POINT OF CARE TE ST DOCKED DEVICE UNSOLICITED RESULTS Final Result Performing Organization Address [facility] Co de Phone Number [facility] [address] [place] [address] * (ABNORMAL) POCT glucose meter (04/09/2022 9:43 PM EST) [facility] POCT Glucose 62(L) 74 - 99 mg/dL [...] for testing. Comment 04/09/2022 9:45 PM EST [facility] Clinical Research Manager ID Caren Rojo 04/09/19 9:45 PM EST [facility] Device ID [id number] 04/09/2022 9:45 PM EST [facility] Specimen Type POC Capillary 04/09/2022 9:45 PM EST [facility] Blood Capillary blood specimen / Unknown 04/09/2022 9:43 PM EST 04/09/2022 9:45 PM EST Greg Juarez MD LAB POINT OF CARE TE ST DOCKED DEVICE UNSOLICITED RESULTS Final Result Performing Organization Address City/[facility]/ZIP Co de Phone Number [facility] [address] [place] [address] * (ABNORMAL) Magnesium (04/09/2022 5:25 PM EST) Magnesium, Plasma 2.7(H) 1.9 - 2.4 mg/dL 04/09/2022 6:05 PM EST [facility] Blood Venous blood specimen / Unknown Venipuncture / Unknown 04/09/2022 5:25 PM EST 04/09/2022 5:35 PM EST Greg Juarez MD LAB BLOOD ORDERABLES Final R esult Performing Organization Address City/[facility]/ZIP Co de Phone Number [facility] [address] [place] [address] * (ABNORMAL) Renal Function Panel, Plasma (04/09/2022 5:25 PM EST) Glucose, Plasma 107(H) 74 - 99 mg/dL 04/09/2022 6:05 PM EST [facility] BUN, Plasma 46(H) 8 - 23 mg/dL 04/09/2022 6:05 PM EST [facility] Creatinine, Plasma 1.78(H) 0.60 - 1.10 mg/dL 04/09/2022 6:05 PM EST [facility] BUN/Creatinine Ratio 26 04/09/2022 6:05 PM EST [facility] Sodium, Plasma 140 136 - 145 mmol/L 04/09/2022 6:05 PM EST [facility] Potassium, Plasma 4.1 3.7 - 4.8 mmol/L 04/09/2022 6:05 PM EST [facility] Comment:Reference range for Serum potassium is 0.2 to 0.5 mmol/L higher than Plasma range. Chloride, Plasma 103 97 - 107 mmol/L 04/09/2022 6:05 PM EST [facility] CO2, Plasma 29 22 - 29 mmol/L 04/09/2022 6:05 PM EST [facility] Anion Gap 8 6 - 16 mmol/L 04/09/2022 6:05 PM EST [facility] Total Calcium, Plasma 8.4(L) 8.9 - 10.2 mg/dL 04/09/2022 6:05 PM EST [facility] Phosphorus, Plasma 2.9 2.5 - 4.5 mg/dL 04/09/2022 6:05 PM EST [facility] Albumin, Plasma 2.9(L) 3.5 - 5.2 g/dL 04/09/2022 6:05 PM EST [facility] eGFRcr 31.0 mL/min/1.7 3m*2 04/09/2022 6:05 PM EST [facility] Comment: Reported eGFRcr in mL/min/1.73m2 is based the CKD-EPI 202 equation that does not use a race coefficient. Effective 09/29/21 our laboratory changed the eGFR calculation to the CKD-EPI 202 equation from the previously reported eGFR, based on the MDRD equation. ??For comparisons between the two equations, please see laboratory website: ??[email or web address] Blood Venous blood specimen / Unknown Venipuncture / Unknown 04/09/2022 5:25 PM EST 04/09/2022 5:35 PM EST us Greg Juarez MD LAB BLOOD ORDERABLES Final R esult [facility] [address] [place] [address] * MO CRITICAL CARE, E/M 30-74 MINUTES (04/09/2022 11:05 [...] LAB HEMATOLOGY METHOD 04/09/2022 10:54 AM EST [facility] Bicarbonate, Calculated, Arterial 30(H) 22 - 26 mmol/L LAB HEMATOLOGY METHOD 04/09/2022 10:54 AM EST [facility] Hematocrit, Whole Blood 26.3(L) 34.0 - 45.0 % LAB HEMATOLOGY METHOD 04/09/2022 10:54 AM EST [facility] Sodium, Whole Blood 140 136 - 145 mmol/L LAB HEMATOLOGY METHOD 04/09/2022 10:54 AM EST [facility] Potassium, Whole Blood 3.9 3.6 - 4.9 mmol/L LAB HEMATOLOGY METHOD 04/09/2022 10:54 AM EST [facility] Chloride, Whole Blood 102 97 - 107 mmol/L LAB HEMATOLOGY METHOD 04/09/2022 10:54 AM EST [facility] Glucose, Whole Blood 103(H) 74 - 99 mg/dL LAB HEMATOLOGY METHOD 04/09/2022 10:54 AM EST [facility] Ionized Calcium, Whole Blood 4.7 4.6 - 5.1 mg/dL LAB HEMATOLOGY METHOD 04/09/2022 10:54 AM EST [facility] Lactate, Arterial, Whole Blood 0.7 0.5 - 1.6 mmol/L LAB HEMATOLOGY METHOD 04/09/2022 10:54 AM EST [facility] Blood Arterial blood specimen / Unknown Arterial Puncture / Unknown 04/09/2022 10:40 AM EST 04/09/2022 10:47 AM EST us Greg Juarez MD LAB BLOOD ORDERABLES Final R esult [facility] [address] [place] [address] * POCT glucose meter (04/09/2022 6:09 AM EST) POCT Glucose 96 74 - 99 mg/dL 04/09/2022 6:15 AM EST [facility] Comment:Accuracy of a glucos e result [...] for testing. Comment 04/09/2022 6:15 AM EST [facility] Clinical Research Manager ID Kemal Montoyajewel 6:15 AM EST [facility] Device ID [id number] 04/09/2022 6:15 AM EST [facility] Specimen Type POC Arterial 04/09/2022 6:15 AM EST [facility] Blood Arterial blood specimen / Unknown 04/09/2022 6:09 AM EST 04/09/2022 6:15 AM EST us Greg Juarez MD LAB POINT OF CARE TE ST DOCKED DEVICE UNSOLICITED RESULTS Final Result [facility] [address] [place] [address] * XR Chest 1 View (04/09/2022 5:10 [...] CHEST 1 VIEW ordered by GREG JUAREZ, [id number] CLINICAL INDICATION: post op cabg TECHNIQUE: Single AP view of chest. COMPARISON: Chest one day prior FINDINGS: Prior median sternotomy. Nasogastric tube now absent. Right internal venous catheter and bilateral chest tubes remain in position. No pneumothorax. Bibasilar lung opacity similar. Procedure Note Panchito Gaffney MD - 04/09/2022 Exam/Procedure: XR CHEST 1 VIEW ordered by GREG JUAREZ, [id number] CLINICAL INDICATION: post op cabg TECHNIQUE: Single [...] ABDOMEN 1 VIEW ordered by GREG JUAREZ, [id number] CLINICAL INDICATION: ileus with NGT TECHNIQUE: Supine [...] ABDOMEN 1 VIEW ordered by GREG JUAREZ, [id number] CLINICAL INDICATION: ileus with NGT TECHNIQUE: Supine [...] - 2.4 mg/dL 04/09/2022 2:45 AM EST [facility] Blood Arterial blood specimen / Unknown Venipuncture / Unknown 04/09/2022 2:04 AM EST 04/09/2022 2:12 AM EST us Greg Juarez MD LAB BLOOD ORDERABLES Final R esult [facility] [address] [place] [address] * (ABNORMAL) Renal function panel (04/09/2022 2:04 AM EST) Glucose, Plasma 114(H) 74 - 99 mg/dL 04/09/2022 2:45 AM EST [facility] BUN, Plasma 45(H) 8 - 23 mg/dL 04/09/2022 2:45 AM EST [facility] Creatinine, Plasma 1.77(H) 0.60 - 1.10 mg/dL 04/09/2022 2:45 AM EST [facility] BUN/Creatinine Ratio 25 04/09/2022 2:45 AM EST [facility] Sodium, Plasma 139 136 - 145 mmol/L 04/09/2022 2:45 AM EST [facility] Potassium, Plasma 4.5 3.7 - 4.8 mmol/L 04/09/2022 2:45 AM EST [facility] Comment: Hemolyzed, result may be falsely increased. Reference range for Serum potassium is 0.2 to 0.5 mmol/L higher than Plasma range. Chloride, Plasma 104 97 - 107 mmol/L 04/09/2022 2:45 AM EST [facility] CO2, Plasma 26 22 - 29 mmol/L 04/09/2022 2:45 AM EST [facility] Anion Gap 9 6 - 16 mmol/L 04/09/2022 2:45 AM EST [facility] Total Calcium, Plasma 8.6(L) 8.9 - 10.2 mg/dL 04/09/2022 2:45 AM EST [facility] Phosphorus, Plasma 3.4 2.5 - 4.5 mg/dL 04/09/2022 2:45 AM EST [facility] Albumin, Plasma 2.8(L) 3.5 - 5.2 g/dL 04/09/2022 2:45 AM EST [facility] eGFRcr 31.2 mL/min/1.7 3m*2 04/09/2022 2:45 AM EST [facility] Comment: Reported eGFRcr in mL/min/1.73m2 is based the CKD-EPI 202 equation that does not use a race coefficient. Effective 09/29/21 our laboratory changed the eGFR calculation to the CKD-EPI 2021 equation from the previously reported eGFR, based on the MDRD equation. ??For comparisons between the two equations, please see laboratory website: ??[email or web address] Blood Arterial blood specimen / Unknown Venipuncture / Unknown 04/09/2022 2:04 AM EST 04/09/2022 2:12 AM EST us Greg Juarez MD LAB BLOOD ORDERABLES Final R esult Performing Organization Address City/State/[facility] Co de Phone Number [facility] [address] [place] [address] * (ABNORMAL) CBC W/O Differential (04/09/2022 2:04 AM EST) WBC Count 12.72(H) 3.70 - 10.30 10*3/uL LAB HEMATOLOGY METHOD 04/09/2022 2:20 AM EST [facility] RBC Count 2.91(L) 3.90 - 5.20 10*6/uL LAB HEMATOLOGY METHOD 04/09/2022 2:20 AM EST [facility] HGB 8.2(L) 11.2 - 15.7 g/dL LAB HEMATOLOGY METHOD 04/09/2022 2:20 AM EST [facility] HCT 25.7(L) 34.0 - 45.0 % LAB HEMATOLOGY METHOD 04/09/2022 2:20 AM EST [facility] Platelet Count 176 155 - 369 10*3/uL LAB HEMATOLOGY METHOD 04/09/2022 2:20 AM EST [facility] MCV 88 79 - 98 fL LAB HEMATOLOGY METHOD 04/09/2022 2:20 AM EST [facility] MCH 28.2 26.0 - 32.0 pg LAB HEMATOLOGY METHOD 04/09/2022 2:20 AM EST [facility] MCHC 31.9 30.7 - 35.5 g/dL LAB HEMATOLOGY METHOD 04/09/2022 2:20 AM EST [facility] RDW 15.1(H) 11.5 - 14.5 % LAB HEMATOLOGY METHOD 04/09/2022 2:20 AM EST [facility] [facility] MPV 10.5 8.8 - 12.5 fL LAB HEMATOLOGY METHOD 04/09/2022 2:20 AM EST [facility] nRBC 0.0 <=0.0 per 100 WBCs LAB HEMATOLOGY METHOD 04/09/2022 2:20 AM EST [facility] Blood Arterial blood specimen / Unknown Venipuncture / Unknown 04/09/2022 2:04 AM EST 04/09/2022 2:12 AM EST us Greg Juarez MD LAB BLOOD ORDERABLES Final R esult Performing Organization Address City/[facility] Co de Phone Number [facility] [address] [place] [address] * (ABNORMAL) POCT glucose meter (04/09/2022 1:09 AM EST) POCT Glucose 115(H) 74 - 99 mg/dL 04/09/2022 1:10 AM EST [facility] Comment:Accuracy of a glucos e result [...] for testing. Comment 04/09/2022 1:10 AM EST [facility] Clinical Research Manager ID Constance Montoya 1:10 AM EST [facility] Device ID [id number] 04/09/2022 1:10 AM EST [facility] Specimen Type POC Arterial 04/09/2022 1:10 AM EST [facility] Blood Arterial blood specimen / Unknown 04/09/2022 1:09 AM EST 04/09/2022 1:10 AM EST us Greg Juarez MD LAB POINT OF CARE TE ST DOCKED DEVICE UNSOLICITED RESULTS Final Result Performing Organization Address City/[facility] Co de Phone Number [facility] [address] [place] [address] * POCT glucose meter (04/09/2022 12:06 AM [...] for testing. Comment 04/09/2022 12:10 AM EST [facility] Clinical Research Manager ID Ru Urban 12:10 AM EST [employer] [facility] Device ID [id number] 04/09/2022 12:10 AM EST [facility] Specimen Type POC Arterial 04/09/2022 12:10 AM EST [facility] Blood Arterial blood specimen / Unknown 04/09/2022 12:06 AM EST 04/09/2022 12:10 AM EST us Greg Juarez MD LAB POINT OF CARE TE ST DOCKED DEVICE UNSOLICITED RESULTS Final Result [facility] [address] [place] [address] * MO CRITICAL CARE, ADDL 30 MIN (04/08/2022 10:43 [...] gas panel, arterial (04/08/2022 5:22 PM EST) pH, Arterial 7.41 7.31 - 7.42 LAB HEMATOLOGY METHOD 04/08/2022 5:30 PM EST [facility] pCO2, Arterial 45 32 - 45 mmHg LAB HEMATOLOGY METHOD 04/08/2022 5:30 PM EST [facility] pO2, Arterial 70(L) >80 mmHg LAB HEMATOLOGY METHOD 04/08/2022 5:30 PM EST [facility] SO2, Measured, Arterial 94.5 94 - 98 % LAB HEMATOLOGY METHOD 04/08/2022 5:30 PM EST [facility] Base Excess, Arterial 3.8(H) -2 - 3 mmol/L LAB HEMATOLOGY METHOD 04/08/2022 5:30 PM EST [facility] Bicarbonate, Calculated, Arterial 29(H) 22 - 26 mmol/L LAB HEMATOLOGY METHOD 04/08/2022 5:30 PM EST [facility] Hematocrit, Whole Blood 26.2(L) 34.0 - 45.0 % LAB HEMATOLOGY METHOD 04/08/2022 5:30 PM EST [facility] Sodium, Whole Blood 143 136 - 145 mmol/L LAB HEMATOLOGY METHOD 04/08/2022 5:30 PM EST [facility] Potassium, Whole Blood 3.9 3.6 - 4.9 mmol/L LAB HEMATOLOGY METHOD 04/08/2022 5:30 PM EST [facility] Chloride, Whole Blood 103 97 - 107 mmol/L LAB HEMATOLOGY METHOD 04/08/2022 5:30 PM EST [facility] Glucose, Whole Blood 108(H) 74 - 99 mg/dL LAB HEMATOLOGY METHOD 04/08/2022 5:30 PM EST [facility] Ionized Calcium, Whole Blood 4.7 4.6 - 5.1 mg/dL LAB HEMATOLOGY METHOD 04/08/2022 5:30 PM EST [facility] Lactate, Arterial, Whole Blood 0.9 0.5 - 1.6 mmol/L LAB HEMATOLOGY METHOD 04/08/2022 5:30 PM EST [facility] Blood Arterial blood specimen / Unknown Arterial Puncture / Unknown 04/08/2022 5:22 PM EST 04/08/2022 5:28 PM EST us Greg Juarez MD LAB BLOOD ORDERABLES Final R esult [facility] [address] [place] [address] * (ABNORMAL) Renal function panel (04/08/2022 5:06 PM EST) Glucose, Plasma 110(H) 74 - 99 mg/dL 04/08/2022 6:07 PM EST [facility] BUN, Plasma 45(H) 8 - 23 mg/dL 04/08/2022 6:07 PM [facility] Creatinine, Plasma 1.92(H) 0.60 - 1.10 mg/dL 04/08/2022 6:07 PM EST [facility] BUN/Creatinine Ratio 23 04/08/2022 6:07 PM EST [facility] Sodium, Plasma 143 136 - 145 mmol/L 04/08/2022 6:07 PM [facility] Potassium, Plasma 3.9 3.7 - 4.8 mmol/L 04/08/2022 6:07 PM [facility] Comment:Reference range for Serum potassium is 0.2 to 0.5 mmol/L higher than Plasma range. Chloride, Plasma 104 97 - 107 mmol/L 04/08/2022 6:07 PM EST [facility] CO2, Plasma 27 22 - 29 mmol/L 04/08/2022 6:07 PM EST [facility] Anion Gap 12 6 - 16 mmol/L 04/08/2022 6:07 PM [facility] Total Calcium, Plasma 8.7(L) 8.9 - 10.2 mg/dL 04/08/2022 6:07 PM [facility] Phosphorus, Plasma 3.8 2.5 - 4.5 mg/dL 04/08/2022 6:07 PM [facility] Albumin, Plasma 3.1(L) 3.5 - 5.2 g/dL 04/08/2022 6:07 PM EST [facility] eGFRcr 28.3 mL/min/1.7 3m*2 04/08/2022 6:07 PM EST [facility] Comment: Reported eGFRcr in mL/min/1.73m2 is based the CKD-EPI 202 equation that does not use a race coefficient. Effective 09/29/21 our laboratory changed the eGFR calculation to the CKD-EPI 2021 equation from the previously reported eGFR, based on the MDRD equation. ??For comparisons between the two equations, please see laboratory website: ??[email or web address] Blood Venous blood specimen / Unknown Venipuncture / Unknown 04/08/2022 5:06 PM EST 04/08/2022 5:37 PM EST us Greg Juarez MD LAB BLOOD ORDERABLES Final R esult Performing Organization Address City/[facility] Co de Phone Number [facility] [address] [place] [address] * ECG Adult (04/08/2022 3:19 PM EST) EKG DIAGNOSIS CLASS Abnormal MUSE ECG Ventricular Rate 146 BPM MUSE ECG Atrial Rate 292 BPM MUSE ECG QRSD Interval 94 ms MUSE ECG QT Interval 256 ms MUSE ECG QTC Interval 398 ms MUSE ECG P [place] -77 degrees MUSE ECG R [place] -15 degrees MUSE ECG T Wave [place] 137 degrees MUSE ECG Diagnosis Atrial flutter MUSE ECG Diagnosis with 2:1 AV conduction MUSE ECG Diagnosis Inferior-ceo and founder ior infarct MUSE ECG Diagnosis , age undetermined MUSE ECG Diagnosis ST & MUSE ECG Diagnosis T wave abnormality, consider lateral ischemia MUSE ECG Diagnosis Abnormal ECG MUSE ECG Diagnosis Confirmed by Nathan Gill ([id number]) on 04/09/2022 2:42:46 PM MUSE ECG 04/08/2022 3:19 PM EST 04/09/2022 2:42 PM EST us Greg Juarez MD ECG ORDERABLES Final Result Performing Organization Address [facility] Co de Phone Number MUSE ECG * MO CRITICAL CARE, E/M 30-74 MINUTES (04/08/2022 1:02 [...] LAB HEMATOLOGY METHOD 04/08/2022 11:34 AM EST [facility] Sodium, Whole Blood 142 136 - 145 mmol/L LAB HEMATOLOGY METHOD 04/08/2022 11:34 AM EST [facility] Potassium, Whole Blood 4.1 3.6 - 4.9 mmol/L LAB HEMATOLOGY METHOD 04/08/2022 11:34 AM EST [facility] Chloride, Whole Blood 104 97 - 107 mmol/L LAB HEMATOLOGY METHOD 04/08/2022 11:34 AM EST [facility] Glucose, Whole Blood 121(H) 74 - 99 mg/dL LAB HEMATOLOGY METHOD 04/08/2022 11:34 AM EST [facility] Ionized Calcium, Whole Blood 4.7 4.6 - 5.1 mg/dL LAB HEMATOLOGY METHOD 04/08/2022 11:34 AM EST [facility] Lactate, Arterial, Whole Blood 1.0 0.5 - 1.6 mmol/L LAB HEMATOLOGY METHOD 04/08/2022 11:34 AM EST [facility] Blood Arterial blood specimen / Unknown Arterial Puncture / Unknown 04/08/2022 11:25 AM EST 04/08/2022 11:32 AM EST us Greg Juarez MD LAB BLOOD ORDERABLES Final R esult Performing Organization Address City/State/[facility] Co de Phone Number [facility] [address] [place], [place] [id number] * XR Abdomen 1 View (04/08/2022 7:45 [...] ABDOMEN 1 VIEW ordered by GREG JUAREZ, [id number] CLINICAL INDICATION: ileus TECHNIQUE: Supine radiograph of [...] ABDOMEN 1 VIEW ordered by GREG JUAREZ, [id number] CLINICAL INDICATION: ileus TECHNIQUE: Supine radiograph of [...] 04/08/2022 7:13 AM EST [facility] Hematocrit, Whole Blood 26.1(L) 34.0 - 45.0 % LAB HEMATOLOGY METHOD 04/08/2022 7:13 AM EST [facility] Sodium, Whole Blood 141 136 - 145 mmol/L LAB HEMATOLOGY METHOD 04/08/2022 7:13 AM EST [facility] Potassium, Whole Blood 4.5 3.6 - 4.9 mmol/L LAB HEMATOLOGY METHOD 04/08/2022 7:13 AM EST [facility] Chloride, Whole Blood 102 97 - 107 mmol/L LAB HEMATOLOGY METHOD 04/08/2022 7:13 AM EST [facility] Glucose, Whole Blood 126(H) 74 - 99 mg/dL LAB HEMATOLOGY METHOD 04/08/2022 7:13 AM EST [facility] Ionized Calcium, Whole Blood 4.7 4.6 - 5.1 mg/dL LAB HEMATOLOGY METHOD 04/08/2022 7:13 AM EST [facility] Lactate, Arterial, Whole Blood 1.1 0.5 - 1.6 mmol/L LAB HEMATOLOGY METHOD 04/08/2022 7:13 AM EST [facility] Blood Arterial blood specimen / Unknown Arterial Puncture / Unknown 04/08/2022 6:54 AM EST 04/08/2022 7:09 AM EST Greg Juarez MD LAB BLOOD ORDERABLES Final R esult Performing Organization Address City/State/[facility] Co de Phone Number [facility] [address] [place] [address] * (ABNORMAL) POCT glucose meter (04/08/2022 6:06 AM EST) POCT Glucose 122(H) 74 - 99 mg/dL 04/08/2022 6:10 AM EST [facility] Comment:Accuracy of a glucos e result [...] for testing. Comment 04/08/2022 6:10 AM EST [facility] Clinical Research Manager ID Efrain Bains 04/08/2022 6:10 AM EST [facility] Device ID [id number] 04/08/2022 6:10 AM EST [facility] Specimen Type POC Arterial 04/08/2022 6:10 AM EST [facility] Blood Arterial blood specimen / Unknown 04/08/2022 6:06 AM EST 04/08/2022 6:10 AM EST Greg Juarez MD LAB POINT OF CARE TE ST DOCKED DEVICE UNSOLICITED RESULTS Final Result [facility] [address] [place] [id number] * XR Chest 1 View (04/08/2022 5:08 AM EST) Anatomical Region Laterality Modality Chest Digital Radiogra phy Impressions 04/08/2022 1:34 PM EST Interval removal of [place] catheter. Increased atelectasis in the right lower lobe. CRITICAL RESULT: ?? No. COMMUNICATION: Per this written report. Dictated by Nelson Juarez MD on 04/08/2022 1:31 PM Signed by Nelson Juarez MD on 04/08/2022 1:34 PM Narrative 04/08/2022 1:34 PM EST Exam/Procedure: XR CHEST 1 VIEW ordered by GREG JUAREZ [id number] CLINICAL INDICATION: post operative CABG TECHNIQUE: XR CHEST 1 VIEW COMPARISON: April 07, 2022 FINDINGS: Interval removal of [place] catheter. Remaining support hardware is stable including right internal jugular introducer sheath catheter. Increased atelectasis in the right middle lobe. Procedure Note Nelson Juarez MD - 04/08/2022 Exam/Procedure: XR CHEST 1 VIEW ordered by GREG JUAREZ, [id number] CLINICAL INDICATION: post operative CABG TECHNIQUE: XR CHEST 1 VIEW COMPARISON: April 07, 2022 FINDINGS: Interval removal of [place] catheter. Remaining support hardware isstable including right internal jugular introducer sheath catheter.Increased atelectasis in the right middle lobe. IMPRESSION: Interval removal of [place] catheter. Increased atelectasis in the right lower [...] - 99 mg/dL 04/08/2022 1:40 AM EST [facility] Comment:Accuracy of a glucos e result [...] for testing. Comment 04/08/2022 1:40 AM EST [facility] Clinical Research Manager ID Monroe Bainsvor 04/08/2022 1:40 AM EST [facility] Device ID [id number] 04/08/2022 1:40 AM EST [facility] Specimen Type POC Arterial 04/08/2022 1:40 AM EST [facility] Blood Arterial blood specimen / Unknown 04/08/2022 1:36 AM EST 04/08/2022 1:40 AM EST us Greg Juarez MD LAB POINT OF CARE TE ST DOCKED DEVICE UNSOLICITED RESULTS Final Result Performing Organization Address City/State/[facility] Co de Phone Number [facility] [address] [place] [address] * (ABNORMAL) CBC W/O Differential (04/08/2022 1:34 AM EST) WBC Count 14.08(H) 3.70 - 10.30 10*3/uL LAB HEMATOLOGY METHOD 04/08/2022 1:58 AM EST [facility] RBC Count 3.09(L) 3.90 - 5.20 10*6/uL LAB HEMATOLOGY METHOD 04/08/2022 1:58 AM EST [facility] HGB 8.7(L) 11.2 - 15.7 g/dL LAB HEMATOLOGY METHOD 04/08/2022 1:58 AM EST [facility] HCT 27.1(L) 34.0 - 45.0 % LAB HEMATOLOGY METHOD 04/08/2022 1:58 AM EST [facility] Platelet Count 179 155 - 369 10*3/uL LAB HEMATOLOGY METHOD 04/08/2022 1:58 AM EST [facility] MCV 88 79 - 98 fL LAB HEMATOLOGY METHOD 04/08/2022 1:58 AM EST [facility] MCH 28.2 26.0 - 32.0 pg LAB HEMATOLOGY METHOD 04/08/2022 1:58 AM EST [facility] MCHC 32.1 30.7 - 35.5 g/dL LAB HEMATOLOGY METHOD 04/08/2022 1:58 AM EST [facility] RDW 15.4(H) 11.5 - 14.5 % LAB HEMATOLOGY METHOD 04/08/2022 1:58 AM EST [facility] MPV 10.6 8.8 - 12.5 fL LAB HEMATOLOGY METHOD 04/08/2022 1:58 AM EST [facility] nRBC 0.0 <=0.0 per 100 WBCs LAB HEMATOLOGY METHOD 04/08/2022 1:58 AM EST [facility] Blood Venous blood specimen / Unknown Venipuncture / Unknown 04/08/2022 1:34 AM EST 04/08/2022 1:47 AM EST Greg Juarez MD LAB BLOOD ORDERABLES Final R esult Performing Organization Address City/[facility]/ZIP Co de Phone Number [facility] [address] [place] [address] * Phosphorus (04/08/2022 1:34 AM EST) Phosphorus, Plasma 4.1 2.5 - 4.5 mg/dL 04/08/2022 2:29 AM EST [facility] Blood Venous blood specimen / Unknown Venipuncture / Unknown 04/08/2022 1:34 AM EST 04/08/2022 1:47 AM EST Greg Juarez MD LAB BLOOD ORDERABLES Final R esult Performing Organization Address City/[facility]/ZIP Co de Phone Number [facility] [address] [place] [address] * (ABNORMAL) Magnesium (04/08/2022 1:34 AM EST) Magnesium, Plasma 2.8(H) 1.9 - 2.4 mg/dL 04/08/2022 2:29 AM EST [facility] Blood Venous blood specimen / Unknown Venipuncture / Unknown 04/08/2022 1:34 AM EST 04/08/2022 1:47 AM EST Greg Juarez MD LAB BLOOD ORDERABLES Final R esult [facility] [address] [place] [address] * (ABNORMAL) Basic metabolic panel (04/08/2022 1:34 AM EST) Glucose, Plasma 140(H) 74 - 99 mg/dL 04/08/2022 2:29 AM EST [facility] BUN, Plasma 41(H) 8 - 23 mg/dL 04/08/2022 2:29 AM EST [facility] Creatinine, Plasma 2.04(H) 0.60 - 1.10 mg/dL 04/08/2022 2:29 AM EST [facility] BUN/Creatinine Ratio 20 04/08/2022 2:29 AM EST [facility] Sodium, Plasma 140 136 - 145 mmol/L 04/08/2022 2:29 AM EST [facility] Potassium, Plasma 4.4 3.7 - 4.8 mmol/L 04/08/2022 2:29 AM EST [facility] Comment: Hemolyzed, result may be falsely increased. Reference range for Serum potassium is 0.2 to 0.5 mmol/L higher than Plasma range. Chloride, Plasma 104 97 - 107 mmol/L 04/08/2022 2:29 AM EST [facility] CO2, Plasma 25 22 - 29 mmol/L 04/08/2022 2:29 AM EST [facility] Anion Gap 11 6 - 16 mmol/L 04/08/2022 2:29 AM EST [facility] Total Calcium, Plasma 9.1 8.9 - 10.2 mg/dL 04/08/2022 2:29 AM EST [facility] eGFRcr 26.3 mL/min/1.7 3m*2 04/08/2022 2:29 AM EST [facility] Comment: Reported eGFRcr in mL/min/1.73m2 is based the CKD-EPI 2021 equation that does not use a race coefficient. Effective 09/29/21 our laboratory changed the eGFR calculation to the CKD-EPI 2021 equation from the previously reported eGFR, based on the MDRD equation. ??For comparisons between the two equations, please see laboratory website: ??[email or web address]/[email or web address] Blood Venous blood specimen / Unknown Venipuncture / Unknown 04/08/2022 1:34 AM EST 04/08/2022 1:47 AM EST us Greg Juarez MD LAB BLOOD ORDERABLES Final R esult Performing Organization Address City/State/[facility] Co de Phone Number [facility] [address] [place] [id number] * MO CRITICAL CARE, ADDL 30 MIN (04/07/2022 11:24 [...] IN CLINIC/BEDSIDE ORDERABLE S Final Result * [facility], E/M 30-74 MINUTES (04/07/2022 1:53 [...] WO IV CONTRAST ordered by GREG JUAREZ, [id number] CLINICAL INDICATION: Bowel obstruction suspected TECHNIQUE: Multiple [...] WO IV CONTRAST ordered by GREG WALTERS, [id number] CLINICAL INDICATION: Bowel obstruction suspected TECHNIQUE: Multiple [...] LAB HEMATOLOGY METHOD 04/07/2022 12:24 PM EST [facility] pCO2, Arterial 47(H) 32 - 45 mmHg LAB HEMATOLOGY METHOD 04/07/2022 12:24 PM EST [facility] pO2, Arterial 90 >80 mmHg LAB HEMATOLOGY METHOD 04/07/2022 12:24 PM EST [facility] SO2, Measured, Arterial 97.5 94 - 98 % LAB HEMATOLOGY METHOD 04/07/2022 12:24 PM EST [facility] Base Excess, Arterial -0.8 -2 - 3 mmol/L LAB HEMATOLOGY METHOD 04/07/2022 12:24 PM EST [facility] Bicarbonate, Calculated, Arterial 25 22 - 26 mmol/L LAB HEMATOLOGY METHOD 04/07/2022 12:24 PM EST [facility] Hematocrit, Whole Blood 27.8(L) 34.0 - 45.0 % LAB HEMATOLOGY METHOD 04/07/2022 12:24 PM EST [facility] Sodium, Whole Blood 139 136 - 145 mmol/L LAB HEMATOLOGY METHOD 04/07/2022 12:24 PM EST [facility] Potassium, Whole Blood 4.8 3.6 - 4.9 mmol/L LAB HEMATOLOGY METHOD 04/07/2022 12:24 PM EST [facility] Chloride, Whole Blood 105 97 - 107 mmol/L LAB HEMATOLOGY METHOD 04/07/2022 12:24 PM EST [facility] Glucose, Whole Blood 141(H) 74 - 99 mg/dL LAB HEMATOLOGY METHOD 04/07/2022 12:24 PM EST [facility] Ionized Calcium, Whole Blood 4.7 4.6 - 5.1 mg/dL LAB HEMATOLOGY METHOD 04/07/2022 12:24 PM EST [facility] Lactate, Arterial, Whole Blood 1.4 0.5 - 1.6 mmol/L LAB HEMATOLOGY METHOD 04/07/2022 12:24 PM EST [facility] Blood Arterial blood specimen / Unknown Arterial Puncture / Unknown 04/07/2022 12:07 PM EST 04/07/2022 12:22 PM EST us Greg Juarez MD LAB BLOOD ORDERABLES Final R esult [facility] [address] [place] [address] * XR Abdomen 1 View (04/07/2022 11:15 [...] ABDOMEN 1 VIEW ordered by GREG JUAREZ, [id number] CLINICAL INDICATION: NGT TECHNIQUE: Supine radiograph of the abdomen. COMPARISON: Abdominal radiograph from 3 hours prior FINDINGS: Limited [id number] abdominal radiograph for the purpose of locating tube position. The tip of the nasogastric tube is within the proximal stomach. The side port is not visualized. Procedure Note Kilo Cordon MD - 04/07/2022 Exam/Procedure: XR ABDOMEN 1 VIEW ordered by GREG JUAREZ, [id number] CLINICAL INDICATION: NGT TECHNIQUE: Supine radiograph of the abdomen. COMPARISON: Abdominal radiograph from 3 hours prior FINDINGS: Limited [id number] abdominal radiograph for the purpose of locatingtube [...] ABDOMEN 1 VIEW ordered by GREG JUAREZ, [id number] CLINICAL INDICATION: nausea and abdominal distension TECHNIQUE: [...] ABDOMEN 1 VIEW ordered by GREG JUAREZ, [id number] CLINICAL INDICATION: nausea and abdominal distension TECHNIQUE: [...] signing this report, I, the attending physician, shimon I have personally reviewed the images/data for the aboveexamination(s) and agree with the final edited report. Dictated by Mike Crabtree M.D. on 04/07/2022 9:05 AM Signed by Kilo Cordon MD on 04/07/2022 11:26 AM Greg Juarez MD IMG XR PROCEDURES Final Resu lt * (ABNORMAL) Phosphorus (04/07/2022 6:37 AM EST) Phosphorus, Plasma 5.2(H) 2.5 - 4.5 mg/dL 04/07/2022 7:23 AM EST [facility] Blood Venous blood specimen / Unknown Venipuncture / Unknown 04/07/2022 6:37 AM EST 04/07/2022 6:54 AM EST Greg Juarez MD LAB BLOOD ORDERABLES Final R esult Performing Organization Address City/State/[facility] Co de Phone Number [facility] [address] [place] [address] * (ABNORMAL) Magnesium (04/07/2022 6:37 AM EST) Magnesium, Plasma 3.0(H) 1.9 - 2.4 mg/dL 04/07/2022 7:23 AM EST [facility] Blood Venous blood specimen / Unknown Venipuncture / Unknown 04/07/2022 6:37 AM EST 04/07/2022 6:54 AM EST Greg Juarez MD LAB BLOOD ORDERABLES Final R esult [facility] [address] [place] [address] * (ABNORMAL) Blood gas panel, arterial (04/07/2022 6:37 AM EST) pH, Arterial 7.34 7.31 - 7.42 LAB HEMATOLOGY METHOD 04/07/2022 6:53 AM EST [facility] pCO2, Arterial 46(H) 32 - 45 mmHg LAB HEMATOLOGY METHOD 04/07/2022 6:53 AM EST [facility] pO2, Arterial 69(L) >80 mmHg LAB HEMATOLOGY METHOD 04/07/2022 6:53 AM EST [facility] SO2, Measured, Arterial 93.9(L) 94 - 98 % LAB HEMATOLOGY METHOD 04/07/2022 6:53 AM EST [facility] Base Excess, Arterial -1.3 -2 - 3 mmol/L LAB HEMATOLOGY METHOD 04/07/2022 6:53 AM EST [facility] Bicarbonate, Calculated, Arterial 25 22 - 26 mmol/L LAB HEMATOLOGY METHOD 04/07/2022 6:53 AM EST [facility] Hematocrit, Whole Blood 26.4(L) 34.0 - 45.0 % LAB HEMATOLOGY METHOD 04/07/2022 6:53 AM EST [facility] Sodium, Whole Blood 137 136 - 145 mmol/L LAB HEMATOLOGY METHOD 04/07/2022 6:53 AM EST [facility] Potassium, Whole Blood 4.7 3.6 - 4.9 mmol/L LAB HEMATOLOGY METHOD 04/07/2022 6:53 AM EST [facility] Chloride, Whole Blood 105 97 - 107 mmol/L LAB HEMATOLOGY METHOD 04/07/2022 6:53 AM EST [facility] Glucose, Whole Blood 164(H) 74 - 99 mg/dL LAB HEMATOLOGY METHOD 04/07/2022 6:53 AM EST [facility] Ionized Calcium, Whole Blood 4.3(L) 4.6 - 5.1 mg/dL LAB HEMATOLOGY METHOD 04/07/2022 6:53 AM EST [facility] Lactate, Arterial, Whole Blood 1.2 0.5 - 1.6 mmol/L LAB HEMATOLOGY METHOD 04/07/2022 6:53 AM EST [facility] Blood Arterial blood specimen / Unknown Arterial Puncture / Unknown 04/07/2022 6:37 AM EST 04/07/2022 6:52 AM EST us Greg Juarez MD LAB BLOOD ORDERABLES Final R es[facility] [address] [place] [address] * XR Chest 1 View (04/07/2022 6:17 [...] CHEST 1 VIEW ordered by LONDON REN [id number] CLINICAL INDICATION: Post-Op Cardiac Surgery TECHNIQUE: XR CHEST 1 VIEW COMPARISON: 04/06/2022 FINDINGS: Endotracheal tube is removed. Stable position of support hardware. No change in cardiac enlargement. Mild interstitial edema is similar to the prior. Trace of left basal pneumothorax. Small bilateral pleural effusions. Procedure Note Hailey Tran MD - 04/07/2022 Exam/Procedure: XR CHEST 1 VIEW ordered by LONDON REN, [id number] CLINICAL INDICATION: Post-Op Cardiac Surgery TECHNIQUE: XR [...] MD on 04/07/2022 8:22 AM us [place] Ren PA IMG XR PROCEDURES Final Res ult * ECG Adult (04/07/2022 5:46 AM EST) EKG DIAGNOSIS CLASS Abnormal MUSE ECG Ventricular Rate 137 BPM MUSE ECG QRSD Interval 92 ms MUSE ECG QT Interval 264 ms MUSE ECG QTC Interval 398 ms MUSE ECG R [place] -2 degrees MUSE ECG T Wave [place] 113 degrees MUSE ECG Diagnosis Atrial fibrillation MUSE ECG Diagnosis with rapid ventricular response MUSE ECG Diagnosis Inferior-ceo and founder ior infarct MUSE ECG Diagnosis , possibly acute MUSE ECG Diagnosis T wave abnormality, consider lateral ischemia MUSE ECG Diagnosis ACUTE [place] / STEMI MUSE ECG Diagnosis Consider right ventricular involvement in acute inferior infarct MUSE ECG Diagnosis Abnormal ECG MUSE ECG Diagnosis Confirmed by Carl Dacosta ([id number]) on 04/08/2022 11:07:11 AM MUSE ECG 04/07/2022 5:46 AM EST 04/08/2022 11:07 AM EST us Greg Juarez MD ECG ORDERABLES Final Result MUSE ECG * (ABNORMAL) Blood gas panel, arterial (04/07/2022 3:31 AM EST) pH, Arterial 7.31 7.31 - 7.42 LAB HEMATOLOGY METHOD 04/07/2022 3:46 AM EST [facility] pCO2, Arterial 49(H) 32 - 45 mmHg LAB HEMATOLOGY METHOD 04/07/2022 3:46 AM EST [facility] pO2, Arterial 65(L) >80 mmHg LAB HEMATOLOGY METHOD 04/07/2022 3:46 AM EST [facility] SO2, Measured, Arterial 91.7(L) 94 - 98 % LAB HEMATOLOGY METHOD 04/07/2022 3:46 AM EST [facility] Base Excess, Arterial -1.7 -2 - 3 mmol/L LAB HEMATOLOGY METHOD 04/07/2022 3:46 AM EST [facility] Bicarbonate, Calculated, Arterial 25 22 - 26 mmol/L LAB HEMATOLOGY METHOD 04/07/2022 3:46 AM EST [facility] Hematocrit, Whole Blood 28.0(L) 34.0 - 45.0 % LAB HEMATOLOGY METHOD 04/07/2022 3:46 AM EST [facility] Sodium, Whole Blood 138 136 - 145 mmol/L LAB HEMATOLOGY METHOD 04/07/2022 3:46 AM EST [facility] Potassium, Whole Blood 4.8 3.6 - 4.9 mmol/L LAB HEMATOLOGY METHOD 04/07/2022 3:46 AM EST [facility] Chloride, Whole Blood 106 97 - 107 mmol/L LAB HEMATOLOGY METHOD 04/07/2022 3:46 AM EST [facility] Glucose, Whole Blood 135(H) 74 - 99 mg/dL LAB HEMATOLOGY METHOD 04/07/2022 3:46 AM EST [facility] Ionized Calcium, Whole Blood 4.7 4.6 - 5.1 mg/dL LAB HEMATOLOGY METHOD 04/07/2022 3:46 AM EST [facility] Lactate, Arterial, Whole Blood 1.0 0.5 - 1.6 mmol/L LAB HEMATOLOGY METHOD 04/07/2022 3:46 AM EST [facility] Blood Arterial blood specimen / Unknown Arterial Puncture / Unknown 04/07/2022 3:31 AM EST 04/07/2022 3:44 AM EST Greg Juarez MD LAB BLOOD ORDERABLES Final R community health Performing Organization Address City/[facility]/ZIP Co de Phone Number [facility] [address] [place] [address] * (ABNORMAL) Phosphorus (04/07/2022 3:31 AM EST) Phosphorus, Plasma 4.9(H) 2.5 - 4.5 mg/dL 04/07/2022 4:49 AM EST [facility] Blood Venous blood specimen / Unknown Venipuncture / Unknown 04/07/2022 3:31 AM EST 04/07/2022 3:47 AM EST Greg Juarez MD LAB BLOOD ORDERABLES Final R esult [facility] [address] [place] [address] * (ABNORMAL) Magnesium (04/07/2022 3:31 AM EST) Magnesium, Plasma 3.5(H) 1.9 - 2.4 mg/dL 04/07/2022 4:49 AM EST [facility] Blood Venous blood specimen / Unknown Venipuncture / Unknown 04/07/2022 3:31 AM EST 04/07/2022 3:47 AM EST us Greg Juarez MD LAB BLOOD ORDERABLES Final R esult [facility] [address] [place] [address] * (ABNORMAL) Basic metabolic panel (04/07/2022 3:31 AM EST) Pathologist [facility] [place] Glucose, Plasma 138(H) 74 - 99 mg/dL 04/07/2022 4:49 AM EST [facility] BUN, Plasma 33(H) 8 - 23 mg/dL 04/07/2022 4:49 AM EST [facility] Creatinine, Plasma 1.97(H) 0.60 - 1.10 mg/dL 04/07/2022 4:49 AM EST [facility] BUN/Creatinine Ratio 17 04/07/2022 4:49 AM EST [facility] Sodium, Plasma 141 136 - 145 mmol/L 04/07/2022 4:49 AM EST [facility] Potassium, Plasma 4.7 3.7 - 4.8 mmol/L 04/07/2022 4:49 AM EST [facility] Comment:Reference range for Serum potassium is 0.2 to 0.5 mmol/L higher than Plasma range. Chloride, Plasma 107 97 - 107 mmol/L 04/07/2022 4:49 AM EST [facility] CO2, Plasma 22 22 - 29 mmol/L 04/07/2022 4:49 AM EST [facility] Anion Gap 12 6 - 16 mmol/L 04/07/2022 4:49 AM EST [facility] Total Calcium, Plasma 8.9 8.9 - 10.2 mg/dL 04/07/2022 4:49 AM EST [facility] eGFRcr 27.4 mL/min/1.7 3m*2 04/07/2022 4:49 AM EST [facility] Comment: Reported eGFRcr in mL/min/1.73m2 is based the CKD-EPI 2020 equation that does not use a race coefficient. Effective 09/29/21 our laboratory changed the eGFR calculation to the CKD-EPI 2020 equation from the previously reported eGFR, based on the MDRD equation. ??For comparisons between the two equations, please see laboratory website: ??[email or web address] Blood Venous blood specimen / Unknown Venipuncture / Unknown 04/07/2022 3:31 AM EST 04/07/2022 3:47 AM EST Greg Juarez MD LAB BLOOD ORDERABLES Final R esult Performing Organization Address [facility] Co sc Phone Number [facility] [address] [place] [address] * (ABNORMAL) Magnesium (04/07/2022 12:22 AM EST) Magnesium, Plasma 3.1(H) 1.9 - 2.4 mg/dL 04/07/2022 3:32 AM EST [facility] Blood Venous blood specimen / Unknown Venipuncture / Unknown 04/07/2022 12:22 AM EST 04/07/2022 12:39 AM EST Greg Juarez MD LAB BLOOD ORDERABLES Final R esult Performing Organization Address [facility] Co de Phone Number [facility] [address] [place] [address] * (ABNORMAL) Basic metabolic panel (04/07/2022 12:22 AM EST) Glucose, Plasma 132(H) 74 - 99 mg/dL 04/07/2022 1:08 AM EST [facility] BUN, Plasma 31(H) 8 - 23 mg/dL 04/07/2022 1:08 AM EST [facility] Creatinine, Plasma 1.86(H) 0.60 - 1.10 mg/dL 04/07/2022 1:08 AM EST [facility] BUN/Creatinine Ratio 17 04/07/2022 1:08 AM EST [facility] Sodium, Plasma 136 136 - 145 mmol/L 04/07/2022 1:08 AM EST [facility] Potassium, Plasma 4.6 3.7 - 4.8 mmol/L 04/07/2022 1:08 AM EST [facility] Comment: Hemolyzed, result may be falsely increased. Reference range for Serum potassium is 0.2 to 0.5 mmol/L higher than Plasma range. Chloride, Plasma 105 97 - 107 mmol/L 04/07/2022 1:08 AM EST [facility] CO2, Plasma 21(L) 22 - 29 mmol/L 04/07/2022 1:08 AM EST [facility] Anion Gap 10 6 - 16 mmol/L 04/07/2022 1:08 AM EST [facility] Total Calcium, Plasma 8.6(L) 8.9 - 10.2 mg/dL 04/07/2022 1:08 AM EST [facility] eGFRcr 29.4 mL/min/1.7 3m*2 04/07/2022 1:08 AM EST [facility] Comment: Reported eGFRcr in mL/min/1.73m2 is based the CKD-EPI 202 equation that does not use a race coefficient. Effective 09/29/21 our laboratory changed the eGFR calculation to the CKD-EPI 2021 equation from the previously reported eGFR, based on the MDRD equation. ??For comparisons between the two equations, please see laboratory website: ??[email or web address] Blood Venous blood specimen / Unknown Venipuncture / Unknown 04/07/2022 12:22 AM EST 04/07/2022 12:39 AM EST us [place] [facility] LAB BLOOD ORDERABLES Final Result [facility] [address] [place] [id number] * (ABNORMAL) CBC (04/07/2022 12:22 AM EST) WBC Count 15.29(H) 3.70 - 10.30 10*3/uL LAB HEMATOLOGY METHOD 04/07/2022 12:50 AM EST [facility] RBC Count 3.23(L) 3.90 - 5.20 10*6/uL LAB HEMATOLOGY METHOD 04/07/2022 12:50 AM EST [facility] HGB 8.9(L) 11.2 - 15.7 g/dL LAB HEMATOLOGY METHOD 04/07/2022 12:50 AM EST [facility] HCT 28.7(L) 34.0 - 45.0 % LAB HEMATOLOGY METHOD 04/07/2022 12:50 AM EST [facility] Platelet Count 188 155 - 369 10*3/uL LAB HEMATOLOGY METHOD 04/07/2022 12:50 AM EST [facility] MCV 89 79 - 98 fL LAB HEMATOLOGY METHOD 04/07/2022 12:50 AM EST [facility] MCH 27.6 26.0 - 32.0 pg LAB HEMATOLOGY METHOD 04/07/2022 12:50 AM EST [facility] MCHC 31.0 30.7 - 35.5 g/dL LAB HEMATOLOGY METHOD 04/07/2022 12:50 AM EST [facility] RDW 14.8(H) 11.5 - 14.5 % LAB HEMATOLOGY METHOD 04/07/2022 12:50 AM EST [facility] MPV 10.6 8.8 - 12.5 fL LAB HEMATOLOGY METHOD 04/07/2022 12:50 AM EST [facility] nRBC 0.0 <=0.0 per 100 WBCs LAB HEMATOLOGY METHOD 04/07/2022 12:50 AM EST [facility] Blood Venous blood specimen / Unknown Venipuncture / Unknown 04/07/2022 12:22 AM EST 04/07/2022 12:44 AM EST [place] [facility] LAB BLOOD ORDERABLES Final Result [facility] [address] [place] [address] * (ABNORMAL) Blood gas panel, arterial (04/06/2022 11:13 PM EST) pH, Arterial 7.34 7.31 - 7.42 LAB HEMATOLOGY METHOD 04/06/2022 11:24 PM EST [facility] pCO2, Arterial 44 32 - 45 mmHg LAB HEMATOLOGY METHOD 04/06/2022 11:24 PM EST [facility] pO2, Arterial 65(L) >80 mmHg LAB HEMATOLOGY METHOD 04/06/2022 11:24 PM EST [facility] SO2, Measured, Arterial 92.5(L) 94 - 98 % LAB HEMATOLOGY METHOD 04/06/2022 11:24 PM EST [facility] Base Excess, Arterial -2.2(L) -2 - 3 mmol/L LAB HEMATOLOGY METHOD 04/06/2022 11:24 PM EST [facility] Bicarbonate, Calculated, Arterial 24 22 - 26 mmol/L LAB HEMATOLOGY METHOD 04/06/2022 11:24 PM EST [facility] Hematocrit, Whole Blood 27.5(L) 34.0 - 45.0 % LAB HEMATOLOGY METHOD 04/06/2022 11:24 PM EST [facility] Sodium, Whole Blood 137 136 - 145 mmol/L LAB HEMATOLOGY METHOD 04/06/2022 11:24 PM EST [facility] Potassium, Whole Blood 4.6 3.6 - 4.9 mmol/L LAB HEMATOLOGY METHOD 04/06/2022 11:24 PM EST [facility] Chloride, Whole Blood 108(H) 97 - 107 mmol/L LAB HEMATOLOGY METHOD 04/06/2022 11:24 PM EST [facility] Glucose, Whole Blood 130(H) 74 - 99 mg/dL LAB HEMATOLOGY METHOD 04/06/2022 11:24 PM EST [facility] Ionized Calcium, Whole Blood 4.4(L) 4.6 - 5.1 mg/dL LAB HEMATOLOGY METHOD 04/06/2022 11:24 PM EST [facility] Lactate, Arterial, Whole Blood 1.0 0.5 - 1.6 mmol/L LAB HEMATOLOGY METHOD 04/06/2022 11:24 PM EST [facility] Blood Arterial blood specimen / Unknown Arterial Puncture / Unknown 04/06/2022 11:13 PM EST 04/06/2022 11:20 PM EST us Greg Juarez MD LAB BLOOD ORDERABLES Final R esult [facility] [address] [place] [id number] * ECG Adult (04/06/2022 11:07 PM EST) EKG DIAGNOSIS CLASS Abnormal MUSE ECG Ventricular Rate 91 BPM MUSE ECG Atrial Rate 91 BPM MUSE ECG MO Interval 128 ms MUSE ECG QRSD Interval 90 ms MUSE ECG QT Interval 412 ms MUSE ECG QTC Interval 506 ms MUSE ECG P [place] 52 degrees MUSE ECG R [place] -11 degrees MUSE ECG T Wave [place] 85 degrees MUSE ECG Diagnosis Sinus rhythm MUSE ECG Diagnosis with MUSE ECG Diagnosis premature supraventricular complexes MUSE ECG Diagnosis Lateral infarct MUSE ECG Diagnosis , age undetermined MUSE ECG Diagnosis Inferior infarct MUSE ECG Diagnosis , age undetermined MUSE ECG Diagnosis Abnormal ECG MUSE ECG Diagnosis Confirmed by Carl Dacosta ([id number]) on 04/08/2022 10:56:31 AM MUSE ECG 04/06/2022 11:0 7 PM EST 04/08/2022 10:56 AM EST us Greg Juarez MD ECG ORDERABLES Final Result MUSE ECG * (ABNORMAL) POCT glucose meter [...] 04/06/2022 10:05 PM EST [facility] Clinical Research Manager ID Efrain Bains 04/06/2022 10:05 PM EST [facility] Device ID [id number] 04/06/2022 10:05 PM EST [facility] Specimen Type POC Arterial 04/06/2022 10:05 PM EST [facility] Blood Arterial blood specimen / Unknown 04/06/2022 10:03 PM EST 04/06/2022 10:05 PM EST Greg Juarez MD LAB POINT OF CARE TE ST DOCKED DEVICE UNSOLICITED RESULTS Final Result Performing Organization Address City/[facility]/ZIP Co de Phone Number [facility] [address] [place] [address] * (ABNORMAL) POCT glucose meter (04/06/2022 5:42 PM EST) POCT Glucose 134(H) 74 - 99 mg/dL 04/06/2022 5:45 PM EST [facility] Comment:Accuracy of [...] for testing. Comment 04/06/2022 5:45 PM EST [facility] Clinical Research Manager ID Sheela Sabillon 04/06/2022 5:45 PM EST [facility] Device ID [id number] 04/06/2022 5:45 PM EST [facility] Specimen Type POC Arterial 04/06/2022 5:45 PM EST [facility] Blood Arterial blood specimen / Unknown 04/06/2022 5:42 PM EST 04/06/2022 5:45 PM EST Greg Juarez MD LAB POINT OF CARE TE ST DOCKED DEVICE UNSOLICITED RESULTS Final Result Performing Organization Address City/State/[facility] Phone Number [facility] [address] [place] [address] * MO CRITICAL CARE, E/M 30-74 MINUTES (04/06/2022 2:51 [...] - 99 mg/dL 04/06/2022 2:30 PM EST [facility] Comment:Accuracy of a glucos e result [...] for testing. Comment 04/06/2022 2:30 PM EST [facility] Clinical Research Manager ID Sheela Sabillon 04/06/2022 2:30 PM EST [facility] Device ID [id number] 04/06/2022 2:30 PM EST [facility] Specimen Type POC Arterial 04/06/2022 2:30 PM EST [facility] Blood Arterial blood specimen / Unknown 04/06/2022 2:27 PM EST 04/06/2022 2:30 PM EST us Greg Juarez MD LAB POINT OF CARE TE ST DOCKED DEVICE UNSOLICITED RESULTS Final Result Performing Organization Address City/State/[facility] Co de Phone Number [facility] [address] [place] [phone] * (ABNORMAL) Basic metabolic panel (04/06/2022 2:19 PM EST) Glucose, Plasma 148(H) 74 - 99 mg/dL 04/06/2022 3:23 PM EST [facility] BUN, Plasma 27(H) 8 - 23 mg/dL 04/06/2022 3:23 PM EST [facility] Creatinine, Plasma 1.74(H) 0.60 - 1.10 mg/dL 04/06/2022 3:23 PM EST [facility] BUN/Creatinine Ratio 16 04/06/2022 3:23 PM EST [facility] Sodium, Plasma 139 136 - 145 mmol/L 04/06/2022 3:23 PM EST [facility] Potassium, Plasma 4.7 3.7 - 4.8 mmol/L 04/06/2022 3:23 PM EST [facility] Comment:Reference range for Serum potassium is 0.2 to 0.5 mmol/L higher than Plasma range. Chloride, Plasma 108(H) 97 - 107 mmol/L 04/06/2022 3:23 PM EST [facility] CO2, Plasma 21(L) 22 - 29 mmol/L 04/06/2022 3:23 PM EST [facility] Anion Gap 10 6 - 16 mmol/L 04/06/2022 3:23 PM EST [facility] Total Calcium, Plasma 8.3(L) 8.9 - 10.2 mg/dL 04/06/2022 3:23 PM EST [facility] eGFRcr 31.8 mL/min/1.7 3m*2 04/06/2022 3:23 PM EST [facility] Comment: Reported eGFRcr in mL/min/1.73m2 is based the CKD-EPI 2020 equation that does not use a race coefficient. Effective 09/29/21 our laboratory changed the eGFR calculation to the CKD-EPI 202 equation from the previously reported eGFR, based on the MDRD equation. ??For comparisons between the two equations, please see laboratory website: ??[email or web address] Blood Venous blood specimen / Unknown Venipuncture / Unknown 04/06/2022 2:19 PM EST 04/06/2022 2:51 PM EST Greg Juarez MD LAB BLOOD ORDERABLES Final R esult [facility] [address] [place] [id number] * (ABNORMAL) Blood gas, arterial (04/06/2022 8:05 AM EST) pH, Arterial 7.29(L) 7.31 - 7.42 LAB HEMATOLOGY METHOD 04/06/2022 8:44 AM EST [facility] pCO2, Arterial 42 32 - 45 mmHg LAB HEMATOLOGY METHOD 04/06/2022 8:44 AM EST [facility] pO2, Arterial 66(L) >80 mmHg LAB HEMATOLOGY METHOD 04/06/2022 8:44 AM EST [facility] SO2, Measured, Arterial 92.3(L) 94 - 98 % LAB HEMATOLOGY METHOD 04/06/2022 8:44 AM EST [facility] Base Excess, Arterial -5.7(L) -2 - 3 mmol/L LAB HEMATOLOGY METHOD 04/06/2022 8:44 AM EST [facility] Bicarbonate, Calculated, Arterial 21(L) 22 - 26 mmol/L LAB HEMATOLOGY METHOD 04/06/2022 8:44 AM EST [facility] Hematocrit, Whole Blood 29.0(L) 34.0 - 45.0 % LAB HEMATOLOGY METHOD 04/06/2022 8:44 AM EST [facility] Sodium, Whole Blood 142 136 - 145 mmol/L LAB HEMATOLOGY METHOD 04/06/2022 8:44 AM EST [facility] Potassium, Whole Blood 4.8 3.6 - 4.9 mmol/L LAB HEMATOLOGY METHOD 04/06/2022 8:44 AM EST [facility] Chloride, Whole Blood 113(H) 97 - 107 mmol/L LAB HEMATOLOGY METHOD 04/06/2022 8:44 AM EST [facility] Glucose, Whole Blood 166(H) 74 - 99 mg/dL LAB HEMATOLOGY METHOD 04/06/2022 8:44 AM EST [facility] Ionized Calcium, Whole Blood 4.5(L) 4.6 - 5.1 mg/dL LAB HEMATOLOGY METHOD 04/06/2022 8:44 AM EST [facility] Lactate, Arterial, Whole Blood 1.2 0.5 - 1.6 mmol/L LAB HEMATOLOGY METHOD 04/06/2022 8:44 AM EST [facility] Blood Arterial blood specimen / Unknown Arterial Puncture / Unknown 04/06/2022 8:05 AM EST 04/06/2022 8:42 AM EST us Greg Juarez MD LAB BLOOD ORDERABLES Final R esult [facility] [address] [place] [id number] * (ABNORMAL) POCT glucose meter (04/06/2022 6:04 AM EST) POCT Glucose 152(H) 74 - 99 mg/dL 04/06/2022 6:05 AM EST [facility] Comment:Accuracy of a glucos e result [...] for testing. Comment 04/06/2022 6:05 AM EST [facility] Clinical Research Manager ID Efrain Bains 04/06/2022 6:05 AM EST [facility] Device ID [id number] 04/06/2022 6:05 AM EST [facility] Specimen Type POC Arterial 04/06/2022 6:05 AM EST [facility] Blood Arterial blood specimen / Unknown 04/06/2022 6:04 AM EST 04/06/2022 6:05 AM EST Greg Juarez MD LAB POINT OF CARE TE ST DOCKED DEVICE UNSOLICITED RESULTS Final Result Performing Organization Address City/State/[facility] Phone Number [facility] [address] [place] [address] * (ABNORMAL) Blood gas panel, arterial (04/06/2022 5:42 AM EST) pH, Arterial 7.28(L) 7.31 - 7.42 LAB HEMATOLOGY METHOD 04/06/2022 6:17 AM EST [facility] pCO2, Arterial 44 32 - 45 mmHg LAB HEMATOLOGY METHOD 04/06/2022 6:17 AM EST [facility] pO2, Arterial 66(L) >80 mmHg LAB HEMATOLOGY METHOD 04/06/2022 6:17 AM EST [facility] SO2, Measured, Arterial 92.1(L) 94 - 98 % LAB HEMATOLOGY METHOD 04/06/2022 6:17 AM EST [facility] Base Excess, Arterial -6.0(L) -2 - 3 mmol/L LAB HEMATOLOGY METHOD 04/06/2022 6:17 AM EST [facility] Bicarbonate, Calculated, Arterial 21(L) 22 - 26 mmol/L LAB HEMATOLOGY METHOD 04/06/2022 6:17 AM EST [facility] Hematocrit, Whole Blood 29.7(L) 34.0 - 45.0 % LAB HEMATOLOGY METHOD 04/06/2022 6:17 AM EST [facility] Sodium, Whole Blood 141 136 - 145 mmol/L LAB HEMATOLOGY METHOD 04/06/2022 6:17 AM EST [facility] Potassium, Whole Blood 4.8 3.6 - 4.9 mmol/L LAB HEMATOLOGY METHOD 04/06/2022 6:17 AM EST [facility] Chloride, Whole Blood 113(H) 97 - 107 mmol/L LAB HEMATOLOGY METHOD 04/06/2022 6:17 AM EST [facility] Glucose, Whole Blood 169(H) 74 - 99 mg/dL LAB HEMATOLOGY METHOD 04/06/2022 6:17 AM EST [facility] Ionized Calcium, Whole Blood 4.5(L) 4.6 - 5.1 mg/dL LAB HEMATOLOGY METHOD 04/06/2022 6:17 AM EST [facility] Lactate, Arterial, Whole Blood 1.2 0.5 - 1.6 mmol/L LAB HEMATOLOGY METHOD 04/06/2022 6:17 AM EST [facility] Blood Arterial blood specimen / Unknown Arterial Puncture / Unknown 04/06/2022 5:42 AM EST 04/06/2022 6:14 AM EST Greg Juarez MD LAB BLOOD ORDERABLES Final R esult Performing Organization Address City/[facility] Co de Phone Number [facility] [address] [place] [address] * (ABNORMAL) Potassium (04/06/2022 5:41 AM EST) Pathologist [facility] Potassium, Plasma 5.1(H) 3.7 - 4.8 mmol/L 04/06/2022 7:13 AM EST [facility] Comment:Reference range for Serum potassium is 0.2 to 0.5 mmol/L higher than Plasma range. Blood Venous blood specimen / Unknown Venipuncture / Unknown 04/06/2022 5:41 AM EST 04/06/2022 6:05 AM EST Greg Juarez MD LAB BLOOD ORDERABLES Final R esult Performing Organization Address City/[facility]/ZIP Co de Phone Number [facility] [address] [place] [address] * (ABNORMAL) Hemoglobin and Hematocrit, Blood (04/06/2022 5:41 AM EST) HGB 9.6(L) 11.2 - 15.7 g/dL LAB HEMATOLOGY METHOD 04/06/2022 6:33 AM EST [facility] HCT 30.3(L) 34.0 - 45.0 % LAB HEMATOLOGY METHOD 04/06/2022 6:33 AM EST [facility] Blood Venous blood specimen / Unknown Venipuncture / Unknown 04/06/2022 5:41 AM EST 04/06/2022 6:05 AM EST us Greg Juarez MD LAB BLOOD ORDERABLES Final R esult [facility] [address] [place] [id number] * XR Chest 1 View (04/06/2022 5:11 [...] CHEST 1 VIEW ordered by LONDON REN [id number] CLINICAL INDICATION: Post-Op Cardiac Surgery TECHNIQUE: XR CHEST 1 VIEW COMPARISON: 04/05/2022 FINDINGS: Support hardware is stable. Underinflated lungs with perihilar and basilar atelectasis. Vascular congestion. Stable cardiomediastinal contours. Procedure Note Natalie Amaya MD - 04/06/2022 Exam/Procedure: XR CHEST 1 VIEW ordered by LONDON REN, [id number] CLINICAL INDICATION: Post-Op Cardiac Surgery TECHNIQUE: XR CHEST 1 VIEW COMPARISON: 04/05/2022 FINDINGS: Support hardware is stable. Underinflated lungs with perihilar and basilaratelectasis. Vascular congestion. Stable cardiomediastinal contours. IMPRESSION: Similar lung aeration. CRITICAL RESULT: No. COMMUNICATION: Per this written report. Dictated by Natalie Amaya MD on 04/06/2022 7:40 AM Signed by Natalie Amaya MD on 04/06/2022 7:42 AM [place] [facility] IMG XR PROCEDURES Final Res ult * (ABNORMAL) Blood gas, arterial (04/06/2022 4:14 AM EST) pH, Arterial 7.26(L) 7.31 - 7.42 LAB HEMATOLOGY METHOD 04/06/2022 6:05 AM EST [facility] pCO2, Arterial 47(H) 32 - 45 mmHg LAB HEMATOLOGY METHOD 04/06/2022 6:05 AM EST [facility] pO2, Arterial 75(L) >80 mmHg LAB HEMATOLOGY METHOD 04/06/2022 6:05 AM [facility] SO2, Measured, Arterial 93.8(L) 94 - 98 % LAB HEMATOLOGY METHOD 04/06/2022 6:05 AM [facility] Base Excess, Arterial -6.2(L) -2 - 3 mmol/L LAB HEMATOLOGY METHOD 04/06/2022 6:05 AM [facility] Bicarbonate, Calculated, Arterial 21(L) 22 - 26 mmol/L LAB HEMATOLOGY METHOD 04/06/2022 6:05 AM [facility] Hematocrit, Whole Blood 37.4 34.0 - 45.0 % LAB HEMATOLOGY METHOD 04/06/2022 6:05 AM [facility] Sodium, Whole Blood 139 136 - 145 mmol/L LAB HEMATOLOGY METHOD 04/06/2022 6:05 AM [facility] Potassium, Whole Blood 4.8 3.6 - 4.9 mmol/L LAB HEMATOLOGY METHOD 04/06/2022 6:05 AM [facility] Chloride, Whole Blood 114(H) 97 - 107 mmol/L LAB HEMATOLOGY METHOD 04/06/2022 6:05 AM [facility] Glucose, Whole Blood 161(H) 74 - 99 mg/dL LAB HEMATOLOGY METHOD 04/06/2022 6:05 AM [facility] Ionized Calcium, Whole Blood 4.3(L) 4.6 - 5.1 mg/dL LAB HEMATOLOGY METHOD 04/06/2022 6:05 AM [facility] Lactate, Arterial, Whole Blood 1.4 0.5 - 1.6 mmol/L LAB HEMATOLOGY METHOD 04/06/2022 6:05 AM [facility] Blood Arterial blood specimen / Unknown Arterial Puncture / Unknown 04/06/2022 4:14 AM EST 04/06/2022 6:02 AM EST us [place] [facility] LAB BLOOD ORDERABLES Final Result Performing Organization Address City/[facility]/ZIP Co de Phone Number [facility] [address] [place] [address] * (ABNORMAL) Potassium, Plasma (04/06/2022 4:13 AM EST) Potassium, Plasma 5.1(H) 3.7 - 4.8 mmol/L 04/06/2022 7:13 AM EST [facility] Comment:Reference range for Serum potassium is 0.2 to 0.5 mmol/L higher than Plasma range. Blood Venous blood specimen / Unknown Venipuncture / Unknown 04/06/2022 4:13 AM EST 04/06/2022 5:59 AM EST us [place] [facility] LAB BLOOD ORDERABLES Final Result Performing Organization Address City/[facility]/ZIP Co de Phone Number [facility] [address] [place] [address] * (ABNORMAL) Hematocrit (04/06/2022 4:13 AM EST) HCT 30.2(L) 34.0 - 45.0 % LAB HEMATOLOGY METHOD 04/06/2022 6:22 AM EST [facility] Blood Venous blood specimen / Unknown Venipuncture / Unknown 04/06/2022 4:13 AM EST 04/06/2022 5:59 AM EST us [place] [facility] LAB BLOOD ORDERABLES Final Result Performing Organization Address City/[facility]/ZIP Co de Phone Number [facility] [address] [place] [address] * (ABNORMAL) Hemoglobin (04/06/2022 4:13 AM EST) HGB 9.6(L) 11.2 - 15.7 g/dL LAB HEMATOLOGY METHOD 04/06/2022 6:22 AM EST [facility] Blood Venous blood specimen / Unknown Venipuncture / Unknown 04/06/2022 4:13 AM EST 04/06/2022 5:59 AM EST [place] [facility] LAB BLOOD ORDERABLES Final Result Performing Organization Address City/[facility] Co de Phone Number [facility] [address] [place] [address] * ECG Adult - POD 1 (04/06/2022 4:12 AM EST) EKG DIAGNOSIS CLASS Abnormal MUSE ECG Ventricular Rate 96 BPM MUSE ECG Atrial Rate 96 BPM MUSE ECG MO Interval 134 ms MUSE ECG QRSD Interval 90 ms MUSE ECG QT Interval 380 ms MUSE ECG QTC Interval 480 ms MUSE ECG P [place] 62 degrees MUSE ECG R [place] 9 degrees MUSE ECG T Wave [place] 97 degrees MUSE ECG Diagnosis Normal sinus rhythm MUSE ECG Diagnosis ST & MUSE ECG Diagnosis T wave abnormality, consider lateral ischemia MUSE ECG Diagnosis Prolonged QT MUSE ECG Diagnosis Confirmed by Rakan Abbott ([id number]) on 04/06/2022 10:01:54 AM MUSE ECG 04/06/2022 4:12 AM EST 04/06/2022 10:01 AM EST [place] [facility] ECG ORDERABLES Final Resul t Performing Organization Address [facility] Co de Phone Number MUSE ECG * (ABNORMAL) POCT glucose meter (04/06/2022 2:00 AM EST) Pathologist [facility] POCT Glucose 156(H) 74 - 99 mg/dL 04/06/2022 2:05 AM EST [facility] Comment:Accuracy of a glucos e result [...] 04/06/2022 2:05 AM EST [facility] Clinical Research Manager ID Efrain Bains 04/06/2022 2:05 AM EST [facility] Device ID [id number] 04/06/2022 2:05 AM EST [facility] Specimen Type POC Arterial 04/06/2022 2:05 AM EST [facility] Blood Arterial blood specimen / Unknown 04/06/2022 2:00 AM EST 04/06/2022 2:05 AM EST Greg Juarez MD LAB POINT OF CARE TE ST DOCKED DEVICE UNSOLICITED RESULTS Final Result [facility] [address] [place] [address] * (ABNORMAL) Basic metabolic panel (04/06/2022 12:24 AM EST) Glucose, Plasma 177(H) 74 - 99 mg/dL 04/06/2022 1:41 AM EST [facility] BUN, Plasma 21 8 - 23 mg/dL 04/06/2022 1:41 AM EST [facility] Creatinine, Plasma 1.38(H) 0.60 - 1.10 mg/dL 04/06/2022 1:41 AM EST [facility] BUN/Creatinine Ratio 15 04/06/2022 1:41 AM EST [facility] Sodium, Plasma 140 136 - 145 mmol/L 04/06/2022 1:41 AM EST [facility] Potassium, Plasma 5.3(H) 3.7 - 4.8 mmol/L 04/06/2022 1:41 AM EST [facility] Comment:Reference range for Serum potassium is 0.2 to 0.5 mmol/L higher than Plasma range. Chloride, Plasma 112(H) 97 - 107 mmol/L 04/06/2022 1:41 AM EST [facility] CO2, Plasma 19(L) 22 - 29 mmol/L 04/06/2022 1:41 AM EST [facility] Anion Gap 9 6 - 16 mmol/L 04/06/2022 1:41 AM EST [facility] Total Calcium, Plasma 7.7(L) 8.9 - 10.2 mg/dL 04/06/2022 1:41 AM EST [facility] eGFRcr 42.0 mL/min/1.7 3m*2 04/06/2022 1:41 AM EST [facility] Comment: Reported eGFRcr in mL/min/1.73m2 is based the CKD-EPI 2021 equation that does not use a race coefficient. Effective 09/29/21 our laboratory changed the eGFR calculation to the CKD-EPI 202 equation from the previously reported eGFR, based on the MDRD equation. ??For comparisons between the two equations, please see laboratory website: ??[email or web address] Blood Venous blood specimen / Unknown Venipuncture / Unknown 04/06/2022 12:24 AM EST 04/06/2022 12:40 AM EST us [place] [facility] LAB BLOOD ORDERABLES Final Result Performing Organization Address City/State/[facility] Co de Phone Number [facility] [address] [place] [address] * (ABNORMAL) CBC (04/06/2022 12:24 AM EST) WBC Count 12.08(H) 3.70 - 10.30 10*3/uL LAB HEMATOLOGY METHOD 04/06/2022 12:52 AM EST [facility] RBC Count 3.61(L) 3.90 - 5.20 10*6/uL LAB HEMATOLOGY METHOD 04/06/2022 12:52 AM EST [facility] HGB 10.0(L) 11.2 - 15.7 g/dL LAB HEMATOLOGY METHOD 04/06/2022 12:52 AM EST [facility] HCT 31.4(L) 34.0 - 45.0 % LAB HEMATOLOGY METHOD 04/06/2022 12:52 AM EST [facility] Platelet Count 195 155 - 369 10*3/uL LAB HEMATOLOGY METHOD 04/06/2022 12:52 AM EST [facility] MCV 87 79 - 98 fL LAB HEMATOLOGY METHOD 04/06/2022 12:52 AM EST [facility] MCH 27.7 26.0 - 32.0 pg LAB HEMATOLOGY METHOD 04/06/2022 12:52 AM EST [facility] MCHC 31.8 30.7 - 35.5 g/dL LAB HEMATOLOGY METHOD 04/06/2022 12:52 AM EST [facility] RDW 14.4 11.5 - 14.5 % LAB HEMATOLOGY METHOD 04/06/2022 12:52 AM EST [facility] MPV 10.4 8.8 - 12.5 fL LAB HEMATOLOGY METHOD 04/06/2022 12:52 AM EST [facility] nRBC 0.0 <=0.0 per 100 WBCs LAB HEMATOLOGY METHOD 04/06/2022 12:52 AM EST [facility] Blood Venous blood specimen / Unknown Venipuncture / Unknown 04/06/2022 12:24 AM EST 04/06/2022 12:42 AM EST us [place] [facility] LAB BLOOD ORDERABLES Final Result Performing Organization Address City/[facility]/ZIP Co de Phone Number [facility] [address] [place] [address] * (ABNORMAL) Potassium, Plasma (04/06/2022 12:24 AM EST) Potassium, Plasma 5.3(H) 3.7 - 4.8 mmol/L 04/06/2022 1:41 AM EST [facility] Comment:Reference range for Serum potassium is 0.2 to 0.5 mmol/L higher than Plasma range. Blood Venous blood specimen / Unknown Venipuncture / Unknown 04/06/2022 12:24 AM EST 04/06/2022 12:40 AM EST us [place] [facility] LAB BLOOD ORDERABLES Final Result Performing Organization Address City/[facility] Co de Phone Number [facility] [address] [place] [address] * (ABNORMAL) Hematocrit (04/06/2022 12:24 AM EST) HCT 31.4(L) 34.0 - 45.0 % LAB HEMATOLOGY METHOD 04/06/2022 12:52 AM EST [facility] Blood Venous blood specimen / Unknown Venipuncture / Unknown 04/06/2022 12:24 AM EST 04/06/2022 12:42 AM EST us [place] [facility] LAB BLOOD ORDERABLES Final Result Performing Organization Address City/[facility]/ZIP Co de Phone Number [facility] [address] [place] [address] * (ABNORMAL) Hemoglobin (04/06/2022 12:24 AM EST) HGB 10.0(L) 11.2 - 15.7 g/dL LAB HEMATOLOGY METHOD 04/06/2022 12:52 AM EST [facility] Blood Venous blood specimen / Unknown Venipuncture / Unknown 04/06/2022 12:24 AM EST 04/06/2022 12:42 AM EST [place] [facility] LAB BLOOD ORDERABLES Final Result [facility] [address] [place] [address] * (ABNORMAL) Blood gas, arterial (04/06/2022 12:24 AM EST) pH, Arterial 7.27(L) 7.31 - 7.42 LAB HEMATOLOGY METHOD 04/06/2022 12:41 AM EST [facility] pCO2, Arterial 46(H) 32 - 45 mmHg LAB HEMATOLOGY METHOD 04/06/2022 12:41 AM EST [facility] pO2, Arterial 73(L) >80 mmHg LAB HEMATOLOGY METHOD 04/06/2022 12:41 AM [facility] SO2, Measured, Arterial 93.7(L) 94 - 98 % LAB HEMATOLOGY METHOD 04/06/2022 12:41 AM EST [facility] Base Excess, Arterial -5.9(L) -2 - 3 mmol/L LAB HEMATOLOGY METHOD 04/06/2022 12:41 AM [facility] Bicarbonate, Calculated, Arterial 21(L) 22 - 26 mmol/L LAB HEMATOLOGY METHOD 04/06/2022 12:41 AM EST [facility] Hematocrit, Whole Blood 31.0(L) 34.0 - 45.0 % LAB HEMATOLOGY METHOD 04/06/2022 12:41 AM EST [facility] Sodium, Whole Blood 139 136 - 145 mmol/L LAB HEMATOLOGY METHOD 04/06/2022 12:41 AM [facility] Potassium, Whole Blood 5.0(H) 3.6 - 4.9 mmol/L LAB HEMATOLOGY METHOD 04/06/2022 12:41 AM [facility] Chloride, Whole Blood 113(H) 97 - 107 mmol/L LAB HEMATOLOGY METHOD 04/06/2022 12:41 AM [facility] Glucose, Whole Blood 171(H) 74 - 99 mg/dL LAB HEMATOLOGY METHOD 04/06/2022 12:41 AM EST [facility] Ionized Calcium, Whole Blood 4.4(L) 4.6 - 5.1 mg/dL LAB HEMATOLOGY METHOD 04/06/2022 12:41 AM EST [facility] Lactate, Arterial, Whole Blood 0.8 0.5 - 1.6 mmol/L LAB HEMATOLOGY METHOD 04/06/2022 12:41 AM EST [facility] Blood Arterial blood specimen / Unknown Arterial Puncture / Unknown 04/06/2022 12:24 AM EST 04/06/2022 12:39 AM EST us [place] [facility] LAB BLOOD ORDERABLES Final Result Performing Organization Address City/[facility]/ZIP Co de Phone Number [facility] [address] [place] [address] * (ABNORMAL) Potassium (04/05/2022 11:02 PM EST) Potassium, Plasma 5.3(H) 3.7 - 4.8 mmol/L 04/05/2022 11:36 PM EST [facility] Comment:Reference range for Serum potassium is 0.2 to 0.5 mmol/L higher than Plasma range. Blood Venous blood specimen / Unknown Venipuncture / Unknown 04/05/2022 11:02 PM EST 04/05/2022 11:14 PM EST us Greg Juarez MD LAB BLOOD ORDERABLES Final R esult Performing Organization Address City/[facility]/ZIP Co de Phone Number [facility] [address] [place] [address] * (ABNORMAL) Blood gas panel with oximetry, arterial (04/05/2022 10:06 PM EST) pH, Arterial 7.27(L) 7.31 - 7.42 LAB HEMATOLOGY METHOD 04/05/2022 10:13 PM EST [facility] pCO2, Arterial 44 32 - 45 mmHg LAB HEMATOLOGY METHOD 04/05/2022 10:13 PM EST [facility] pO2, Arterial 79(L) >80 mmHg LAB HEMATOLOGY METHOD 04/05/2022 10:13 PM EST [facility] SO2, Measured, Arterial 95.2 94 - 98 % LAB HEMATOLOGY METHOD 04/05/2022 10:13 PM [facility] Base Excess, Arterial -6.4(L) -2 - 3 mmol/L LAB HEMATOLOGY METHOD 04/05/2022 10:13 PM [facility] Bicarbonate, Calculated, Arterial 20(L) 22 - 26 mmol/L LAB HEMATOLOGY METHOD 04/05/2022 10:13 PM [facility] Hematocrit, Whole Blood 31.8(L) 34.0 - 45.0 % LAB HEMATOLOGY METHOD 04/05/2022 10:13 PM [facility] Sodium, Whole Blood 139 136 - 145 mmol/L LAB HEMATOLOGY METHOD 04/05/2022 10:13 PM [facility] Potassium, Whole Blood 5.1(H) 3.6 - 4.9 mmol/L LAB HEMATOLOGY METHOD 04/05/2022 10:13 PM [facility] Chloride, Whole Blood 112(H) 97 - 107 mmol/L LAB HEMATOLOGY METHOD 04/05/2022 10:13 PM [facility] Glucose, Whole Blood 172(H) 74 - 99 mg/dL LAB HEMATOLOGY METHOD 04/05/2022 10:13 PM [facility] Ionized Calcium, Whole Blood 4.4(L) 4.6 - 5.1 mg/dL LAB HEMATOLOGY METHOD 04/05/2022 10:13 PM [facility] Lactate, Arterial, Whole Blood 0.8 0.5 - 1.6 mmol/L LAB HEMATOLOGY METHOD 04/05/2022 10:13 PM [facility] Oxyhemoglobin, Arterial, Whole Blood 93.1(L) 94 - 97 % LAB HEMATOLOGY METHOD 04/05/2022 10:13 PM [facility] Hemoglobin Reduced, Arterial, Whole Blood 4.7(H) <4.1 % LAB HEMATOLOGY METHOD 04/05/2022 10:13 PM [facility] Total Hemoglobin, Arterial, Whole Blood 10.4(L) 11.2 - 15.7 g/dL LAB HEMATOLOGY METHOD 04/05/2022 10:13 PM [facility] Blood Arterial blood specimen / Unknown 04/05/2022 10:06 PM EST 04/05/2022 10:11 PM EST Greg Juarez MD LAB BLOOD ORDERABLES Final R esult [facility] [address] [place] [address] * XR Chest 1 View (04/05/2022 9:06 [...] CHEST 1 VIEW ordered by LONDON REN, [id number] CLINICAL INDICATION: Post-Op Cardiac Surgery TECHNIQUE: XR CHEST 1 VIEW COMPARISON: 03/17/2022 FINDINGS: The cardiomediastinal silhouette is more prominent. The endotracheal tube tip overlies mid thoracic trachea. Right IJ approach [place] catheter tip overlies the pulmonary artery. Bilateral chest tubes and mediastinal drains. Questionable trace left pneumothorax. Procedure Note Lashay Jain MD - 04/05/2022 Exam/Procedure: XR CHEST 1 VIEW ordered by LONDON REN, [id number] CLINICAL INDICATION: Post-Op Cardiac Surgery TECHNIQUE: XR CHEST 1 VIEW COMPARISON: 03/17/2022 FINDINGS: The cardiomediastinal silhouette is more prominent. The endotracheal tubetip overlies mid thoracic trachea. Right IJ approach [place] cathetertip overlies the pulmonary artery. Bilateral chest tubes and mediastinaldrains. Questionable trace left pneumothorax. IMPRESSION: Questionable trace left pneumothorax. CRITICAL RESULT: No COMMUNICATION: Per this written report. Dictated by Lashay Jain MD on 04/05/2022 10:24 PM Signed by Lashay Jain MD on 04/05/2022 10:26 PM us [place] [facility] XR PROCEDURES Final Res ult * (ABNORMAL) Blood gas panel with oximetry, arterial (04/05/2022 9:00 PM EST) pH, Arterial 7.30(L) 7.31 - 7.42 LAB HEMATOLOGY METHOD 04/05/2022 9:54 PM [facility] pCO2, Arterial 41 32 - 45 mmHg LAB HEMATOLOGY METHOD 04/05/2022 9:54 PM [facility] pO2, Arterial 69(L) >80 mmHg LAB HEMATOLOGY METHOD 04/05/2022 9:54 PM [facility] SO2, Measured, Arterial 93.5(L) 94 - 98 % LAB HEMATOLOGY METHOD 04/05/2022 9:54 PM [facility] Base Excess, Arterial -5.7(L) -2 - 3 mmol/L LAB HEMATOLOGY METHOD 04/05/2022 9:54 PM [facility] Bicarbonate, Calculated, Arterial 20(L) 22 - 26 mmol/L LAB HEMATOLOGY METHOD 04/05/2022 9:54 PM [facility] Hematocrit, Whole Blood 30.8(L) 34.0 - 45.0 % LAB HEMATOLOGY METHOD 04/05/2022 9:54 PM [facility] Sodium, Whole Blood 139 136 - 145 mmol/L LAB HEMATOLOGY METHOD 04/05/2022 9:54 PM [facility] Potassium, Whole Blood 4.5 3.6 - 4.9 mmol/L LAB HEMATOLOGY METHOD 04/05/2022 9:54 PM [facility] Chloride, Whole Blood 112(H) 97 - 107 mmol/L LAB HEMATOLOGY METHOD 04/05/2022 9:54 PM [facility] Glucose, Whole Blood 157(H) 74 - 99 mg/dL LAB HEMATOLOGY METHOD 04/05/2022 9:54 PM [facility] Ionized Calcium, Whole Blood 4.4(L) 4.6 - 5.1 mg/dL LAB HEMATOLOGY METHOD 04/05/2022 9:54 PM [facility] Lactate, Arterial, Whole Blood 0.8 0.5 - 1.6 mmol/L LAB HEMATOLOGY METHOD 04/05/2022 9:54 PM [facility] Oxyhemoglobin, Arterial, Whole Blood 91.3(L) 94 - 97 % LAB HEMATOLOGY METHOD 04/05/2022 9:54 PM [facility] Hemoglobin Reduced, Arterial, Whole Blood 6.4(H) <4.1 % LAB HEMATOLOGY METHOD 04/05/2022 9:54 PM [facility] Total Hemoglobin, Arterial, Whole Blood 10.0(L) 11.2 - 15.7 g/dL LAB HEMATOLOGY METHOD 04/05/2022 9:54 PM EST [facility] Blood Arterial blood specimen / Unknown 04/05/2022 9:00 PM EST 04/05/2022 9:53 PM EST Greg Juarez MD LAB BLOOD ORDERABLES Final R esult Performing Organization Address [facility] de Phone Number [facility] [address] [place] [address] * (ABNORMAL) POCT glucose meter (04/05/2022 7:57 PM EST) [facility] POCT Glucose 147(H) 74 - 99 mg/dL 04/05/2022 8:00 PM EST [facility] Comment:Accuracy of a glucos e result [...] for testing. Comment 04/05/2022 8:00 PM EST [facility] Clinical Research Manager ID Maia Titus 04/05/2022 8:00 PM EST [facility] Device ID [id number] 04/05/2022 8:00 PM EST [facility] Specimen Type POC Arterial 04/05/2022 8:00 PM EST [facility] Blood Arterial blood specimen / Unknown 04/05/2022 7:57 PM EST 04/05/2022 8:00 PM EST Greg Juarez MD LAB POINT OF CARE TE ST DOCKED DEVICE UNSOLICITED RESULTS Final Result Performing Organization Address City/[facility] Co de Phone Number [facility] [address] [place] [address] * Multi Drug Resistance Test (04/05/2022 6:57 PM EST) Pathologist [facility] Culture No growth at day 2 04/07/2022 10:18 AM EST [facility] Swab (Nares and Zoraida Rectal) Non-blood Collection / Unknown 04/05/2022 6:57 PM EST 04/05/2022 7:03 PM EST Greg Juarez MD LAB MICROBIOLOGY - GENERAL O RDERABLES Final Result Performing Organization Address [facility] de Phone Number [facility] [address] [place] [address] * Potassium, Plasma (04/05/2022 6:57 PM EST) Potassium, Plasma 3.9 3.7 - 4.8 mmol/L 04/05/2022 7:30 PM EST [facility] Comment:Reference range for Serum potassium is 0.2 to 0.5 mmol/L higher than Plasma range. Blood Venous blood specimen / Unknown Venipuncture / Unknown 04/05/2022 6:57 PM EST 04/05/2022 7:04 PM EST [place] [facility] LAB BLOOD ORDERABLES Final Result Performing Organization Address [facility] de Phone Number [facility] [address] [place] [address] * (ABNORMAL) Hematocrit (04/05/2022 6:57 PM EST) HCT 29.5(L) 34.0 - 45.0 % LAB HEMATOLOGY METHOD 04/05/2022 7:12 PM EST [facility] Blood Venous blood specimen / Unknown Venipuncture / Unknown 04/05/2022 6:57 PM EST 04/05/2022 7:04 PM EST [place] [facility] LAB BLOOD ORDERABLES Final Result Performing Organization Address [facility] de Phone Number [facility] [address] [place] [address] * (ABNORMAL) Hemoglobin (04/05/2022 6:57 PM EST) HGB 9.6(L) 11.2 - 15.7 g/dL LAB HEMATOLOGY METHOD 04/05/2022 7:12 PM EST [facility] Blood Venous blood specimen / Unknown Venipuncture / Unknown 04/05/2022 6:57 PM EST 04/05/2022 7:04 PM EST us [place] [facility] LAB BLOOD ORDERABLES Final Result [facility] [address] [place] [id number] * (ABNORMAL) Blood gas, arterial (04/05/2022 6:57 PM EST) pH, Arterial 7.31 7.31 - 7.42 LAB HEMATOLOGY METHOD 04/05/2022 7:12 PM EST [facility] pCO2, Arterial 40 32 - 45 mmHg LAB HEMATOLOGY METHOD 04/05/2022 7:12 PM EST [facility] pO2, Arterial 109 >80 mmHg LAB HEMATOLOGY METHOD 04/05/2022 7:12 PM EST [facility] SO2, Measured, Arterial 98.8(H) 94 - 98 % LAB HEMATOLOGY METHOD 04/05/2022 7:12 PM EST [facility] Base Excess, Arterial -5.8(L) -2 - 3 mmol/L LAB HEMATOLOGY METHOD 04/05/2022 7:12 PM EST [facility] Bicarbonate, Calculated, Arterial 20(L) 22 - 26 mmol/L LAB HEMATOLOGY METHOD 04/05/2022 7:12 PM EST [facility] Hematocrit, Whole Blood 29.8(L) 34.0 - 45.0 % LAB HEMATOLOGY METHOD 04/05/2022 7:12 PM EST [facility] Sodium, Whole Blood 140 136 - 145 mmol/L LAB HEMATOLOGY METHOD 04/05/2022 7:12 PM EST [facility] Potassium, Whole Blood 3.7 3.6 - 4.9 mmol/L LAB HEMATOLOGY METHOD 04/05/2022 7:12 PM EST [facility] Chloride, Whole Blood 112(H) 97 - 107 mmol/L LAB HEMATOLOGY METHOD 04/05/2022 7:12 PM EST [facility] Glucose, Whole Blood 166(H) 74 - 99 mg/dL LAB HEMATOLOGY METHOD 04/05/2022 7:12 PM EST [facility] Ionized Calcium, Whole Blood 4.3(L) 4.6 - 5.1 mg/dL LAB HEMATOLOGY METHOD 04/05/2022 7:12 PM EST [facility] Lactate, Arterial, Whole Blood 1.3 0.5 - 1.6 mmol/L LAB HEMATOLOGY METHOD 04/05/2022 7:12 PM EST [facility] Blood Arterial blood specimen / Unknown Arterial Puncture / Unknown 04/05/2022 6:57 PM EST 04/05/2022 7:11 PM EST us [place] [facility] LAB BLOOD ORDERABLES Final Result Performing Organization Address [facility] Co de Phone Number [facility] [address] [place] [address] * APTT (04/05/2022 6:57 PM EST) aPTT 32 25 - 35 sec LAB COAGULATION METHOD 04/05/2022 7:28 PM EST [facility] Blood Venous blood specimen / Unknown Venipuncture / Unknown 04/05/2022 6:57 PM EST 04/05/2022 7:04 PM EST [place] [facility] LAB BLOOD ORDERABLES Final Result Performing Organization Address [facility] Phone Number [facility] [address] [place] [address] * (ABNORMAL) Protime-INR (04/05/2022 6:57 PM EST) Prothrombin Time 16.0(H) 12.0 - 14.3 sec LAB COAGULATION METHOD 04/05/2022 7:28 PM EST [facility] INR 1.2(H) 0.9 - 1.1 LAB COAGULATION METHOD 04/05/2022 7:28 PM EST [facility] Blood Venous [...] INR 2.5 to 3.5 Prevention of recurrent [place] ? INR 2.5 to 3.5 us [place] [facility] BLOOD ORDERABLES Final Result Performing Organization Address [facility] de Phone Number [facility] [address] [place] [address] * Phosphorus (04/05/2022 6:57 PM EST) Phosphorus, Plasma 2.5 2.5 - 4.5 mg/dL 04/05/2022 7:30 PM EST [facility] Blood Venous blood specimen / Unknown Venipuncture / Unknown 04/05/2022 6:57 PM EST 04/05/2022 7:04 PM EST us [place] [facility] BLOOD ORDERABLES Final Result Performing Organization Address [facility] Phone Number [facility] [address] [place] [address] * (ABNORMAL) Magnesium (04/05/2022 6:57 PM EST) Magnesium, Plasma 4.1(H) 1.9 - 2.4 mg/dL 04/05/2022 7:30 PM EST [facility] Blood Venous blood specimen / Unknown Venipuncture / Unknown 04/05/2022 6:57 PM EST 04/05/2022 7:04 PM EST [place] [facility] LAB BLOOD ORDERABLES Final Result Performing Organization Address [facility] de Phone Number [facility] [address] [place] [address] * (ABNORMAL) Basic metabolic panel (04/05/2022 6:57 PM EST) Glucose, Plasma 167(H) 74 - 99 mg/dL 04/05/2022 7:30 PM EST [facility] BUN, Plasma 20 8 - 23 mg/dL 04/05/2022 7:30 PM EST [facility] Creatinine, Plasma 1.32(H) 0.60 - 1.10 mg/dL 04/05/2022 7:30 PM EST [facility] BUN/Creatinine Ratio 15 04/05/2022 7:30 PM EST [facility] Sodium, Plasma 139 136 - 145 mmol/L 04/05/2022 7:30 PM EST [facility] Potassium, Plasma 3.9 3.7 - 4.8 mmol/L 04/05/2022 7:30 PM EST [facility] Comment:Reference range for Serum potassium is 0.2 to 0.5 mmol/L higher than Plasma range. Chloride, Plasma 111(H) 97 - 107 mmol/L 04/05/2022 7:30 PM EST [facility] CO2, Plasma 19(L) 22 - 29 mmol/L 04/05/2022 7:30 PM EST [facility] Anion Gap 9 6 - 16 mmol/L 04/05/2022 7:30 PM EST [facility] Total Calcium, Plasma 7.4(L) 8.9 - 10.2 mg/dL 04/05/2022 7:30 PM EST [facility] eGFRcr 44.3 mL/min/1.7 3m*2 04/05/2022 7:30 PM EST [facility] Comment: Reported eGFRcr in mL/min/1.73m2 is based the CKD-EPI 2020 equation that does not use a race coefficient. Effective 09/29/21 our laboratory changed the eGFR calculation to the CKD-EPI 202 equation from the previously reported eGFR, based on the MDRD equation. ??For comparisons between the two equations, please see laboratory website: ??[email or web address] Blood Venous blood specimen / Unknown Venipuncture / Unknown 04/05/2022 6:57 PM EST 04/05/2022 7:04 PM EST us [place] [facility] LAB BLOOD ORDERABLES Final Result [facility] [address] [place] [address] * (ABNORMAL) CBC (04/05/2022 6:57 PM EST) WBC Count 13.75(H) 3.70 - 10.30 10*3/uL LAB HEMATOLOGY METHOD 04/05/2022 7:12 PM EST [facility] RBC Count 3.41(L) 3.90 - 5.20 10*6/uL LAB HEMATOLOGY METHOD 04/05/2022 7:12 PM EST [facility] HGB 9.6(L) 11.2 - 15.7 g/dL LAB HEMATOLOGY METHOD 04/05/2022 7:12 PM EST [facility] HCT 29.5(L) 34.0 - 45.0 % LAB HEMATOLOGY METHOD 04/05/2022 7:12 PM EST [facility] Platelet Count 197 155 - 369 10*3/uL LAB HEMATOLOGY METHOD 04/05/2022 7:12 PM EST [facility] MCV 87 79 - 98 fL LAB HEMATOLOGY METHOD 04/05/2022 7:12 PM EST [facility] MCH 28.2 26.0 - 32.0 pg LAB HEMATOLOGY METHOD 04/05/2022 7:12 PM EST [facility] MCHC 32.5 30.7 - 35.5 g/dL LAB HEMATOLOGY METHOD 04/05/2022 7:12 PM EST [facility] RDW 14.2 11.5 - 14.5 % LAB HEMATOLOGY METHOD 04/05/2022 7:12 PM EST [facility] MPV 9.7 8.8 - 12.5 fL LAB HEMATOLOGY METHOD 04/05/2022 7:12 PM EST [facility] nRBC 0.0 <=0.0 per 100 WBCs LAB HEMATOLOGY METHOD 04/05/2022 7:12 PM EST [facility] Blood Venous blood specimen / Unknown Venipuncture / Unknown 04/05/2022 6:57 PM EST 04/05/2022 7:04 PM EST us [place] [facility] LAB BLOOD ORDERABLES Final Result [facility] [address] [place] [id number] * TEG Global Hemostasis with Lysis (04/05/2022 6:57 PM EST) R, Lysis 4.7 4.6 - 9.0 min 04/05/2022 8:11 PM EST [facility] MA, Rapid, Lysis 63.8 52.0 - 70.0 mm 04/05/2022 8:11 PM EST [facility] MA, Fibrinogen, Lysis 24.6 15.0 - 32.0 mm 04/05/2022 8:11 PM EST [facility] LY30 0.4 0.0 - 2.6 % 04/05/2022 8:11 PM EST [facility] Blood Venous blood specimen / Unknown Venipuncture / Unknown 04/05/2022 6:57 PM EST 04/05/2022 7:09 PM EST us Aquilino Osuna MD LAB BLOOD ORDERABLES Final Result Performing Organization Address City/[facility] Co de Phone Number [facility] [address] [place] [address] * (ABNORMAL) POCT glucose meter (04/05/2022 6:56 PM EST) [facility] POCT Glucose 142(H) 74 - 99 mg/dL 04/05/2022 7:00 PM EST [facility] Comment:Accuracy of a glucos e result [...] for testing. Comment 04/05/2022 7:00 PM EST [facility] Clinical Research Manager ID Tamara Chavez 7:00 PM EST [facility] Device ID [id number] 04/05/2022 7:00 PM EST [facility] Specimen Type POC Arterial 04/05/2022 7:00 PM EST [facility] Blood Arterial blood specimen / Unknown 04/05/2022 6:56 PM EST 04/05/2022 7:00 PM EST us Greg Juarez MD LAB POINT OF CARE TE ST DOCKED DEVICE UNSOLICITED RESULTS Final Result Performing Organization Address City/[facility]/ZIP Co de Phone Number [facility] [address] [place] [address] * ECG Adult - Upon Admissoin to CVICU (04/05/2022 6:45 PM EST) Pathologist [facility] EKG DIAGNOSIS CLASS Abnormal MUSE ECG Ventricular Rate 79 BPM MUSE ECG Atrial Rate 79 BPM MUSE ECG MO Interval 160 ms MUSE ECG QRSD Interval 94 ms MUSE ECG QT Interval 520 ms MUSE ECG QTC Interval 596 ms MUSE ECG P [place] 56 degrees MUSE ECG R [place] -2 degrees MUSE ECG T Wave [place] 95 degrees MUSE ECG Diagnosis Normal sinus rhythm MUSE ECG Diagnosis Lateral infarct MUSE ECG Diagnosis , age undetermined MUSE ECG Diagnosis Prolonged QT MUSE ECG Diagnosis Confirmed by Rakan Abbott ([id number]) on 04/06/2022 1:29:53 PM MUSE ECG 04/05/2022 6:45 PM EST 04/06/2022 1:29 PM EST us [place] [facility] ECG ORDERABLES Final Resul t MUSE ECG * (ABNORMAL) POCT arterial blood gas gem (04/05/2022 5:31 PM EST) pH, Arterial 7.36 7.31 - 7.42 04/05/2022 5:35 PM EST [facility] pCO2, Arterial 35 32 - 45 mm Hg 04/05/2022 5:35 PM EST [facility] pO2, Arterial 105 >80 mm Hg 04/05/2022 5:35 PM EST [facility] SO2, Arterial 99(H) 94 - 98 % 04/05/2022 5:35 PM EST [facility] Base Excess, Arterial -5.1(L) -2 - 3 mmol/L 04/05/2022 5:35 PM EST [facility] HCO3, Arterial 19.8(L) 22 - 26 mmol/L 04/05/2022 5:35 PM EST [facility] Total Hemoglobin, Arterial, Whole Blood 8.4(L) 11.2 - 15.7 g/dL 04/05/2022 5:35 PM EST [facility] Hematocrit, Arterial 25.0(L) 34.0 - 45.0 % 04/05/2022 5:35 PM EST [facility] Sodium, Arterial 141 136 - 145 mmol/L 04/05/2022 5:35 PM EST [facility] Potassium, Arterial 3.7 3.6 - 4.9 mmol/L 04/05/2022 5:35 PM EST [facility] Chloride, Whole Blood 111(H) 97 - 107 mmol/L 04/05/2022 5:35 PM EST [facility] Glucose, Arterial 147(H) 74 - 99 mg/dL 04/05/2022 5:35 PM EST [facility] Ionized Calcium, Arterial 4.7 4.6 - 5.1 mg/dL 04/05/2022 5:35 PM EST [facility] Lactate, Arterial 2.3(H) 0.5 - 1.6 mmol/L 04/05/2022 5:35 PM EST [facility] Body Temperature 37.0 Celsius 04/05/2022 5:35 PM EST [facility] pH, Temp Corrected, Arterial 7.36 7.31 - 7.42 04/05/2022 5:35 PM EST [facility] pCO2, Temp Corrected, Arterial 35 32 - 45 mm Hg 04/05/2022 5:35 PM EST [facility] pO2, Temp Corrected, Arterial 105 >80 mm Hg 04/05/2022 5:35 PM EST [facility] Clinical Research Manager ID Cindy Silverio 04/05/2022 5:35 PM EST [facility] Comment:Performed at Point o f Care Arterial blood specimen (specimen) Whole blood specimen / Unknown 04/05/2022 5:31 PM EST 04/05/2022 5:35 PM EST us Greg Juarez MD LAB POINT OF CARE TE ST DOCKED DEVICE UNSOLICITED RESULTS Final Result Performing Organization Address City/State/[facility] Co de Phone Number [facility] [address] [place] [phone] * (ABNORMAL) POCT arterial blood gas gem (04/05/2022 4:39 PM EST) pH, Arterial 7.29(L) 7.31 - 7.42 04/05/2022 4:45 PM EST [facility] pCO2, Arterial 42 32 - 45 mm Hg 04/05/2022 4:45 PM EST [facility] pO2, Arterial 103 >80 mm Hg 04/05/2022 4:45 PM EST [facility] SO2, Arterial 99(H) 94 - 98 % 04/05/2022 4:45 PM EST [facility] Base Excess, Arterial -5.9(L) -2 - 3 mmol/L 04/05/2022 4:45 PM [facility] HCO3, Arterial 20.2(L) 22 - 26 mmol/L 04/05/2022 4:45 PM [facility] Total Hemoglobin, Arterial, Whole Blood 7.5(L) 11.2 - 15.7 g/dL 04/05/2022 4:45 PM [facility] Hematocrit, Arterial 23.0(L) 34.0 - 45.0 % 04/05/2022 4:45 PM [facility] Sodium, Arterial 140 136 - 145 mmol/L 04/05/2022 4:45 PM [facility] Potassium, Arterial 3.9 3.6 - 4.9 mmol/L 04/05/2022 4:45 PM [facility] Chloride, Whole Blood 110(H) 97 - 107 mmol/L 04/05/2022 4:45 PM [facility] Glucose, Arterial 154(H) 74 - 99 mg/dL 04/05/2022 4:45 PM [facility] Ionized Calcium, Arterial 4.8 4.6 - 5.1 mg/dL 04/05/2022 4:45 PM [facility] Lactate, Arterial 2.6(H) 0.5 - 1.6 mmol/L 04/05/2022 4:45 PM [facility] Body Temperature 37.0 Celsius 04/05/2022 4:45 PM [facility] pH, Temp Corrected, Arterial 7.29(L) 7.31 - 7.42 04/05/2022 4:45 PM [facility] pCO2, Temp Corrected, Arterial 42 32 - 45 mm Hg 04/05/2022 4:45 PM [facility] pO2, Temp Corrected, Arterial 103 >80 mm Hg 04/05/2022 4:45 PM [facility] Clinical Research Manager ID Cindy Silverio 04/05/2022 4:45 PM [facility] Comment:Performed at Point o f Care Arterial blood specimen (specimen) Whole blood specimen / Unknown 04/05/2022 4:39 PM EST 04/05/2022 4:45 PM EST Greg Juarez MD LAB POINT OF CARE TE ST DOCKED DEVICE UNSOLICITED RESULTS Final Result Performing Organization Address [facility] Co de Phone Number [facility] [address] [place] [address] * POCT ACT (04/05/2022 4:38 PM EST) ACT+ (High Range) 111 68 - 600 seconds 04/09/2022 10:31 PM EST [facility] Clinical Research Manager ID Jose Collier 04/09/2022 10:31 PM EST [facility] [place] Device [place] [id number] 04/09/2022 10:31 PM EST [facility] Comment 04/09/2022 10:31 PM EST [facility] Comment: ACT performed by staff at [...] UNSOLICITED RESULTS Final Result Performing Organization Address [facility] de Phone Number [facility] [address] [place] [address] * (ABNORMAL) POCT arterial blood gas gem (04/05/2022 3:32 PM EST) pH, Arterial 7.40 7.31 - 7.42 04/05/2022 3:35 PM EST [facility] pCO2, Arterial 34 32 - 45 mm Hg 04/05/2022 3:35 PM EST [facility] pO2, Arterial 262 >80 mm Hg 04/05/2022 3:35 PM EST [facility] SO2, Arterial 99(H) 94 - 98 % 04/05/2022 3:35 PM EST [facility] Base Excess, Arterial -3.3(L) -2 - 3 mmol/L 04/05/2022 3:35 PM EST [facility] HCO3, Arterial 21.1(L) 22 - 26 mmol/L 04/05/2022 3:35 PM EST [facility] Total Hemoglobin, Arterial, Whole Blood 7.3(L) 11.2 - 15.7 g/dL 04/05/2022 3:35 PM EST [facility] Hematocrit, Arterial 22.0(L) 34.0 - 45.0 % 04/05/2022 3:35 PM EST [facility] Sodium, Arterial 138 136 - 145 mmol/L 04/05/2022 3:35 PM EST [facility] Potassium, Arterial 4.5 3.6 - 4.9 mmol/L 04/05/2022 3:35 PM EST [facility] Chloride, Whole Blood 108(H) 97 - 107 mmol/L 04/05/2022 3:35 PM [facility] Glucose, Arterial 228(H) 74 - 99 mg/dL 04/05/2022 3:35 PM EST [facility] Ionized Calcium, Arterial 4.8 4.6 - 5.1 mg/dL 04/05/2022 3:35 PM EST [facility] Lactate, Arterial 0.9 0.5 - 1.6 mmol/L 04/05/2022 3:35 PM EST [facility] Body Temperature 37.0 Celsius 04/05/2022 3:35 PM [facility] pH, Temp Corrected, Arterial 7.40 7.31 - 7.42 04/05/2022 3:35 PM [facility] pCO2, Temp Corrected, Arterial 34 32 - 45 mm Hg 04/05/2022 3:35 PM EST [facility] pO2, Temp Corrected, Arterial 262 >80 mm Hg 04/05/2022 3:35 PM EST [facility] Clinical Research Manager ID Harjinder Keller 04/05/2022 3:35 PM EST [facility] Comment:Performed at Point o f Care Arterial blood specimen (specimen) Whole blood specimen / Unknown 04/05/2022 3:32 PM EST 04/05/2022 3:35 PM EST us Greg Juarez MD LAB POINT OF CARE TE ST DOCKED DEVICE UNSOLICITED RESULTS Final Result [facility] [address] [place] [address] * POCT ACT (04/05/2022 3:31 PM EST) Pathologist [facility] ACT+ (High Range) 592 68 - 600 seconds 04/09/2022 10:31 PM EST [facility] Clinical Research Manager ID Harjinder Keller 04/09/2022 10:31 PM EST [facility] ACT Device ID [id number] 04/09/2022 10:31 PM EST [facility] Whole blood specimen (specimen) Venous blood specimen / Unknown 04/05/2022 3:31 PM EST 04/09/2022 10:31 PM EST us Greg Juarez MD LAB POINT OF CARE TE ST DOCKED DEVICE UNSOLICITED RESULTS Final Result Performing Organization Address City/State/[facility] Co de Phone Number [facility] [address] [place] [address] * (ABNORMAL) POCT arterial blood gas gem (04/05/2022 3:09 PM EST) Pathologist [facility] pH, Arterial 7.34 7.31 - 7.42 04/05/2022 3:15 PM EST [facility] pCO2, Arterial 43 32 - 45 mm Hg 04/05/2022 3:15 PM EST [facility] pO2, Arterial 496 >80 mm Hg 04/05/2022 3:15 PM EST [facility] SO2, Arterial 100(H) 94 - 98 % 04/05/2022 3:15 PM EST [facility] Base Excess, Arterial -2.4(L) -2 - 3 mmol/L 04/05/2022 3:15 PM EST [facility] HCO3, Arterial 23.2 22 - 26 mmol/L 04/05/2022 3:15 PM EST [facility] Total Hemoglobin, Arterial, Whole Blood 7.2(L) 11.2 - 15.7 g/dL 04/05/2022 3:15 PM EST [facility] Hematocrit, Arterial 22.0(L) 34.0 - 45.0 % 04/05/2022 3:15 PM EST [facility] Sodium, Arterial 136 136 - 145 mmol/L 04/05/2022 3:15 PM EST [facility] Potassium, Arterial 5.3(H) 3.6 - 4.9 mmol/L 04/05/2022 3:15 PM EST [facility] Chloride, Whole Blood 108(H) 97 - 107 mmol/L 04/05/2022 3:15 PM EST [facility] Glucose, Arterial 260(H) 74 - 99 mg/dL 04/05/2022 3:15 PM EST [facility] Ionized Calcium, Arterial 4.8 4.6 - 5.1 mg/dL 04/05/2022 3:15 PM EST [facility] Lactate, Arterial 0.7 0.5 - 1.6 mmol/L 04/05/2022 3:15 PM EST [facility] Body Temperature 37.0 Celsius 04/05/2022 3:15 PM EST [facility] pH, Temp Corrected, Arterial 7.34 7.31 - 7.42 04/05/2022 3:15 PM EST [facility] pCO2, Temp Corrected, Arterial 43 32 - 45 mm Hg 04/05/2022 3:15 PM EST [facility] pO2, Temp Corrected, Arterial 496 >80 mm Hg 04/05/2022 3:15 PM EST [facility] Clinical Research Manager ID Harjinder Keller 04/05/2022 3:15 PM EST [facility] Comment:Performed at Point o f Care Arterial blood specimen (specimen) Whole blood specimen / Unknown 04/05/2022 3:09 PM EST 04/05/2022 3:15 PM EST Greg Juarez MD LAB POINT OF CARE TE ST DOCKED DEVICE UNSOLICITED RESULTS Final Result Performing Organization Address City/State/[facility] Co de Phone Number [facility] [address] [place] [address] * POCT ACT (04/05/2022 3:08 PM EST) ACT+ (High Range) 519 68 - 600 seconds 04/09/2022 10:31 PM EST [facility] Clinical Research Manager ID Harjinder Keller 04/09/2022 10:31 PM EST [facility] ACT Device ID [id number] 04/09/2022 10:31 PM EST [facility] Whole blood specimen (specimen) Venous blood specimen / Unknown 04/05/2022 3:08 PM EST 04/09/2022 10:31 PM EST us Greg Juarez MD LAB POINT OF CARE TE ST DOCKED DEVICE UNSOLICITED RESULTS Final Result [facility] [address] [place] [address] * (ABNORMAL) POCT arterial blood gas gem (04/05/2022 2:37 PM EST) pH, Arterial 7.29(L) 7.31 - 7.42 04/05/2022 2:40 PM EST [facility] pCO2, Arterial 50(H) 32 - 45 mm Hg 04/05/2022 2:40 PM EST [facility] pO2, Arterial 134 >80 mm Hg 04/05/2022 2:40 PM EST [facility] SO2, Arterial 99(H) 94 - 98 % 04/05/2022 2:40 PM EST [facility] Base Excess, Arterial -2.9(L) -2 - 3 mmol/L 04/05/2022 2:40 PM EST [facility] HCO3, Arterial 24.0 22 - 26 mmol/L 04/05/2022 2:40 PM EST [facility] Total Hemoglobin, Arterial, Whole Blood 11.1(L) 11.2 - 15.7 g/dL 04/05/2022 2:40 PM EST [facility] Hematocrit, Arterial 33.0(L) 34.0 - 45.0 % 04/05/2022 2:40 PM EST [facility] Sodium, Arterial 140 136 - 145 mmol/L 04/05/2022 2:40 PM EST [facility] Potassium, Arterial 4.4 3.6 - 4.9 mmol/L 04/05/2022 2:40 PM EST [facility] Chloride, Whole Blood 107 97 - 107 mmol/L 04/05/2022 2:40 PM EST [facility] Glucose, Arterial 115(H) 74 - 99 mg/dL 04/05/2022 2:40 PM EST [facility] Ionized Calcium, Arterial 5.0 4.6 - 5.1 mg/dL 04/05/2022 2:40 PM EST [facility] Lactate, Arterial 0.6 0.5 - 1.6 mmol/L 04/05/2022 2:40 PM EST [facility] Body Temperature 37.0 Celsius 04/05/2022 2:40 PM [facility] pH, Temp Corrected, Arterial 7.29(L) 7.31 - 7.42 04/05/2022 2:40 PM EST [facility] pCO2, Temp Corrected, Arterial 50(H) 32 - 45 mm Hg 04/05/2022 2:40 PM EST [facility] pO2, Temp Corrected, Arterial 134 >80 mm Hg 04/05/2022 2:40 PM EST [facility] Clinical Research Manager ID Cindy Silverio 04/05/2022 2:40 PM EST [facility] Comment:Performed at Point o f Care Arterial blood specimen (specimen) Whole blood specimen / Unknown 04/05/2022 2:37 PM EST 04/05/2022 2:40 PM EST Greg Juarez MD LAB POINT OF CARE TE ST DOCKED DEVICE UNSOLICITED RESULTS Final Result Performing Organization Address City/[facility] Co de Phone Number [facility] [address] [place] [address] * POCT ACT (04/05/2022 2:35 PM EST) ACT+ (High Range) 598 68 - 600 seconds 04/09/2022 10:31 PM EST [facility] Clinical Research Manager ID Harjinder Keller 04/09/2022 10:31 PM EST [facility] ACT Device ID [id number] 04/09/2022 10:31 PM EST [facility] Whole blood specimen (specimen) Venous blood specimen / Unknown 04/05/2022 2:35 PM EST 04/09/2022 10:31 PM EST Greg Juarez MD LAB POINT OF CARE TE ST DOCKED DEVICE UNSOLICITED RESULTS Final Result Performing Organization Address City/[facility]/ZIP Co de Phone Number [facility] [address] [place] [address] * TEG Global Hemostasis with Lysis (04/05/2022 1:01 PM EST) R, Lysis 4.7 4.6 - 9.0 min 04/05/2022 2:04 PM EST [facility] MA, Rapid, Lysis 65.8 52.0 - 70.0 mm 04/05/2022 2:04 PM EST [facility] MA, Fibrinogen, Lysis 29.4 15.0 - 32.0 mm 04/05/2022 2:04 PM EST [facility] LY30 0.5 0.0 - 2.6 % 04/05/2022 2:04 PM EST [facility] Blood Arterial blood specimen / Unknown 04/05/2022 1:01 PM EST 04/05/2022 1:08 PM EST Comment:Pre-op diagnosis: CAD us Greg Juarez MD LAB BLOOD ORDERABLES Final R esult [facility] [address] [place] [address] * (ABNORMAL) POCT arterial blood gas gem (04/05/2022 12:50 PM EST) pH, Arterial 7.37 7.31 - 7.42 04/05/2022 12:55 PM EST [facility] pCO2, Arterial 42 32 - 45 mm Hg 04/05/2022 12:55 PM EST [facility] pO2, Arterial 241 >80 mm Hg 04/05/2022 12:55 PM EST [facility] SO2, Arterial 99(H) 94 - 98 % 04/05/2022 12:55 PM EST [facility] Base Excess, Arterial -1.0 -2 - 3 mmol/L 04/05/2022 12:55 PM EST [facility] HCO3, Arterial 24.3 22 - 26 mmol/L 04/05/2022 12:55 PM EST [facility] Total Hemoglobin, Arterial, Whole Blood 11.6 11.2 - 15.7 g/dL 04/05/2022 12:55 PM EST [facility] Hematocrit, Arterial 35.0 34.0 - 45.0 % 04/05/2022 12:55 PM EST [facility] Sodium, Arterial 140 136 - 145 mmol/L 04/05/2022 12:55 PM EST [facility] Potassium, Arterial 4.1 3.6 - 4.9 mmol/L 04/05/2022 12:55 PM EST [facility] Chloride, Whole Blood 106 97 - 107 mmol/L 04/05/2022 12:55 PM EST [facility] Glucose, Arterial 94 74 - 99 mg/dL 04/05/2022 12:55 PM EST [facility] Ionized Calcium, Arterial 4.9 4.6 - 5.1 mg/dL 04/05/2022 12:55 PM EST [facility] Lactate, Arterial 0.6 0.5 - 1.6 mmol/L 04/05/2022 12:55 PM EST [facility] Body Temperature 37.0 Celsius 04/05/2022 12:55 PM EST [facility] pH, Temp Corrected, Arterial 7.37 7.31 - 7.42 04/05/2022 12:55 PM EST [facility] pCO2, Temp Corrected, Arterial 42 32 - 45 mm Hg 04/05/2022 12:55 PM EST [facility] pO2, Temp Corrected, Arterial 241 >80 mm Hg 04/05/2022 12:55 PM EST [facility] Clinical Research Manager ID Cindy Silverio 04/05/2022 12:55 PM EST [facility] Comment:Performed at [facility] Care Arterial blood specimen (specimen) Whole blood specimen / Unknown 04/05/2022 12:50 PM EST 04/05/2022 12:55 PM EST Greg Juarez MD LAB POINT OF CARE TE ST DOCKED DEVICE UNSOLICITED RESULTS Final Result Performing Organization Address City/State/[facility] Co de Phone Number [facility] [address] [place] [address] * POCT ACT (04/05/2022 12:49 PM EST) ACT+ (High Range) 113 68 - 600 seconds 04/09/2022 10:31 PM EST [facility] Clinical Research Manager ID Ang Dill 04/09/2022 10:31 PM EST [facility] [place] [id number] 04/09/2022 10:31 PM EST [facility] Comment 04/09/2022 10:31 PM EST [facility] Comment: ACT performed by staff at [...] UNSOLICITED RESULTS Final Result Performing Organization Address City/[facility] Co de Phone Number [facility] [facility] [address] [place] [address] * Type and Screen (04/05/2022 11:12 AM EST) ABO/Rh O Negative 04/05/2022 11:00 AM EST BLOOD BANK Antibody Screen Negative 04/05/2022 11:00 AM EST BLOOD BANK Specimen Expiration 04/08/2022 23:59 04/05/2022 11:00 AM EST BLOOD BANK Blood Venous blood specimen / Unknown Venipuncture / Unknown 04/05/2022 11:12 AM EST 04/05/2022 11:21 AM EST us Greg Juarez MD LAB BLOOD BANK TEST ORDERABL ES Final Result Performing Organization Address [facility] de Phone Number BLOOD BANK [address] documented in this encounter Visit Diagnoses Not on filedocumented in this encounter Admitting Diagnoses Diagnosis CAD, multiple vessel documented in this encounter Administered Medications Inactive Administered Medications - up to 3 most recent administrations Medication Order MAR Action Action Date Dose Rate Site acetaminophen (Tylenol) tablet 650 mg 650 mg, Oral, Every 6 hours PRN, Starting on Mon04/12/22 at 0700, Until Mon04/14/22 at 1815, Routine, mild pain aspirin chewable tablet 81 mg 81 mg, [...] Given 04/11/2022 8:23 PM EST 80 mg calcium carbonate (Tums) chewable tablet 500 mg 500 mg, Oral, 4 times daily PRN, Starting on Mon04/07/22 at 0232, Until Mon04/14/22 at 1815, Routine, indigestion, heartburn Given 04/13/2022 11:58 PM EST 500 m g Given 04/12/2022 8:12 AM EST 500 mg Given 04/07/2022 2:54 AM EST 500 mg colchicine tablet 0.6 mg 0.6 mg, Oral, Daily, 10 doses, First dose on Mon04/08/22 at 0730, Last dose on Mon04/17/22 at 0900, Routine Given 04/14/2022 8:54 AM EST 0.6 mg Given 04/13/2022 8:42 AM EST 0.6 mg Given 04/12/2022 8:12 AM EST 0.6 mg docusate sodium (Colace) capsule 200 mg 200 mg, Oral, 2 times daily, First dose (after last modification) on Mon04/07/22 at 0900, Until Discontinued, Routine, Recovery(Phase II-Outpatient)/On Unit(Inpatient) Given 04/10/2022 9:24 AM EST 200 mg Given 04/09/2022 9:35 PM EST 200 mg Given 04/09/2022 9:24 AM EST 200 mg heparin (porcine) injection 5,000 Units 5,000 Units, Subcutaneous, Every 8 hours, First dose on Mon04/07/22 at 1200, Until Discontinued, Routine Given 04/14/2022 12:00 PM EST 5,000 Units Left Lower Abdomen Given 04/14/2022 4:41 AM EST 5,000 Units L eft Lower Abdomen Given 04/13/2022 8:04 PM EST 5,000 Units L eft Lower Abdomen HYDROcodone-acetaminophen (Grinnell) 5-325 MG per tablet 5 mg of hydrocodone 5 mg of hydrocodone, Oral, Every 6 hours PRN, Starting on Mon04/13/22 at 0843, Until Mon04/14/22 at 1815, Routine, severe pain ipratropium-albuterol (Duo-Neb) 0.5-2.5 mg/3 mL nebulizer solution 3 mL 3 mL, Nebulization, Every 6 hours PRN, Starting on Mon04/11/22 at 0715, Until Mon04/14/22 at 1815, Routine, wheezing lisinopril tablet 5 mg 5 mg, Oral, Daily, First dose on Mon04/14/22 at 0900, Until Discontinued, Routine Given 04/14/2022 8:53 AM EST 5 mg methocarbamol (Robaxin) tablet 500 mg 500 mg, Oral, 4 times daily PRN, Starting on Mon04/12/22 at 0700, Until Mon04/14/22 at 1815, Routine, muscle spasms metoprolol tartrate (Lopressor) tablet 75 mg 75 mg, Oral, 2 times daily, First dose (after last modification) on 04/09/22 at 2100, Until Discontinued, Routine Given 04/14/2022 8:54 AM EST 75 mg Given 04/13/2022 8:04 PM EST 75 mg Given 04/13/2022 8:42 AM EST 75 mg ondansetron (Zofran) injection 4 mg 4 mg, Intravenous, Every 6 hours PRN, Starting on Mon04/05/22 at 1820, Until Mon04/14/22 at 1815, Routine, Recovery(Phase II-Outpatient)/On Unit(Inpatient), nausea, vomiting Given 04/07/2022 2:36 AM EST 4 mg papaverine in NS injection Continuous PRN, Starting on Mon04/05/22 at 1212, Until Mon04/05/22 at 1212, Routine, Intraprocedure New Bag 04/05/2022 12:12 PM EST 1 mg polyethylene glycol (Miralax) packet 17 g 17 g, Oral, Daily PRN, Starting on Mon04/11/22 at 0730, Until Mon04/14/22 at 1815, Routine, Recovery(Phase II-Outpatient)/On Unit(Inpatient), constipation senna (Senokot) tablet 17.2 mg 17.2 mg, [...] Given 04/10/2022 9:24 AM EST 80 mg thrombin (recombinant) (Recothrom) topical solution As needed, Starting on Mon04/05/22 at 1212, Until Mon04/05/22 at 1840, Routine Given 04/05/2022 12:12 PM EST 10,000 Units Chest vancomycin (Vancocin) vial for injection As needed, Starting on Mon04/05/22 at 1212, Until Mon04/05/22 at 1840, Routine, Intraprocedure Given 04/05/2022 12:12 PM EST 1 g Chest documented in this encounter Active and Recently Administered Medications Times are shown in EST. Scheduled Medication Order 04/12/2022 04/13/2022 04/14/2022 acetaminophen (Tylenol) tablet 650 mg (CANCELED) 650 mg, Oral, Every 6 hours scheduled, First dose (after last modification) on Mon04/07/22 at 1200, Until Discontinued, Routine 05 (Given - Provider: Saba Lee RN) aspirin chewable tablet 81 mg 81 mg, Oral, Daily, First dose (after last modification) on Mon04/06/22 at 0900, Until Discontinued, Routine, Recovery(Phase II-Outpatient)/On Unit(Inpatient) 08 (Given - Provider: Helene Cartagena RN) 0842 (Given - Provider: Holly Mari, DARIUS) 0854 (Given - Provider: Holly Mari, DARIUS) [...] 0900, Routine 0812 (Given - Provider: Helene Cartagena RN) 0842 (Given - Provider: Holly Mari RN) 0854 (Given - Provider: Holly Mari RN) docusate sodium (Colace) capsule 200 mg 200 mg, Oral, 2 times daily, First dose (after last modification) on Urszula 04/07/22 at 0900, Until Discontinued, Routine, Recovery(Phase II-Outpatient)/On [...] Urszula 04/07/22 at 1200, Until Discontinued, Routine 0411 (Given [...] on Mon04/14/22 at 0900, Until Discontinued, Routine 0853 (Given - Provider: Holly Mari RN) metoprolol tartrate (Lopressor) tablet 75 mg 75 mg, Oral, 2 times daily, First dose (after last modification) on 04/09/22 at 2100, Until Discontinued, Routine 0812 (Given - Provider: Helene Cartagena RN)2015 (Given - Provider: Rani Levy RN) 0842 (Given - Provider: Holly Mari, DARIUS)2003 (Given - Provider: Lucila Pratt, DARIUS) 0854 (Given - Provider: Holly Mari, DARIUS) perflutren lipid microspheres (Definity) injection 5.216 mg (COMPLETED) 5.216 mg (rounded from 5.1834 mg = 10 mcL/kg ? 79.5 kg), Intravenous, Once in imaging, 1 dose, Starting on Mon04/13/22 at 1610, Until Mon04/13/22 at 1611, Routine 1611 (Given - Provider: Audrey Gilliam [facility]) phosphorus (K Phos Neutral) tablet 1 tablet (COMPLETED) 1 tablet, Oral, Every 8 hours, 3 doses, First dose on Mon04/12/22 at 0500, Last dose on Mon04/12/22 at 2100, Routine 0529 (Given - Provider: Saba Lee RN)1209 (Given - Provider: Rani Levy RN)2015 (Given - Provider: Rani Levy RN) senna [...] Lee RN) 0108 (Given - Provider: Lucila Pratt RN) HYDROcodone-acetaminophen (Grinnell) 5-325 MG per tablet 5 mg of [...] documented as of this encounter Care Teams Radio Machinist Relationship Specialty Start Date End Date Greg Hayward MD [address] [place] [id number] PCP - General 07/17/20 Ryan Rice MD [address] [place] [id number] Referring Physician Cardiology 03/21/22 documented as of this encounter
--- OUTSIDE RECORDS SUMMARY | 2024-02-01 15:25 | XMS_ITS | Encounter Summary ---
Author Organization Healthcare Address [facility] [place] [address] Care Team Providers Care Lithographic Stripper Name Role Phone Nico Hayward MD Primary Care Provider + [phone] Ryan Rice MD Unavailable [phone] Encounter Details Date Type Department Care Team (Late st Contact Info) Description 02/22/2022 Orders Only External Location [address] [place] [address] Ryan Rice MD [address] [place] [address] Social History Tobacco Use Types Packs/Day Years [...] Procedure Name Priority Date/Time Associated Diagnosis Comments POC US ECHOCARDIOGRAPHY COMPLETE W DOPPLER AND COLOR 02/22/2022 10:54 AM EST documented in this encounter Results * POC US Echocardiography Complete W Doppler and Color (02/22/2022 10:54 AM EST) Anatomical Region Laterality Modality Ultrasound 02/22/2022 10:5 4 AM EST us Ryan Rice MD IMG POINT OF CARE ULTRASOU ND Final Result documented in this encounter Visit Diagnoses Not on filedocumented in this encounter Care Teams Lithographic Stripper Relationship Specialty Start Date End Date Nico Hayward MD [address] [place] [id number] PCP - General 07/17/20 Ryan Rice MD [address] [place] [id number] Referring Physician Cardiology 03/21/22 documented as of this encounter
--- OUTSIDE RECORDS SUMMARY | 2024-02-01 15:25 | XMS_ITS | Encounter Summary ---
Author Organization Healthcare Address [address] [place] [address] Care Team Providers Care Youth Coordinator Name Role Phone Unavailable Primary Care Provider Unavailabl e Encounter Details Date Type Department Care Team (Late st Contact Info) Description 08/01/2019 11:14 PM EDT - 08/04/2019 4:18 PM EDT Hospital Encounter [facility] Inpatient [address] [place] [address] Anusha Polk DO [address] [facility] [address] [place] [address] Cerebral infarction, unspecified (CMS/HCC) Social History Tobacco Use Types Packs/Day Years Used Date Smoking Tobacco: Never Assessed Comments Unknown Sex and Gender Information Value Date Recorded Sex Assigned at Female 04/13/2022 9:50 AM EST Legal Sex Female 7:35 PM EDT Gender Identity Female 04/13/2022 9:50 AM EST Sexual Orientation Straight 04/13/2022 9: 50 AM EST documented as of this encounter Miscellaneous Notes * Discharge Summary - Anusha Polk - 08/04/2019 12:00 AM EDT HOSPITALIZATION: Admit Date:01-Aug-2019 Discharge Date:04-Aug-2019 Discharge Atttending PhysicianAnusha Polk DO ConsultsNS - Neurosciences Admitting DiagnosisRight arm weakness DISCHARGE DIAGNOSIS: Ischemic cerebral stroke due to extracranial large artery atherosclerosis: Right arm weakness: * Discharge Diagnosis 1acute ischemic stroke * Discharge Diagnosis 2left carotid stenosis with thrombus * Discharge Diagnosis 3chronic systolic heart failure * Discharge Diagnosis 4CAD, POA * Discharge Diagnosis 5hypertension, POA * Discharge Diagnosis 6hyperlipidemia, POA Reason for Hospitalization Patient presented with acute right arm weakness. HOSPITAL COURSE: Hospital Course 64yo F w/pmh of CAD s/p 4 stents, HTN and HLD that presented to ED as a stroke alert for right upper extremity numbness and weakness. NIHSS stroke scale of 3 on initial assessment and RUE weaknesswas presented on initial examination. CT head without contrast showed no acute intracranial abnormality, no hemorrhage. 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 Also, approximately 30% stenosis of theright ICA. Patient was initially started on a heparin drip for the suspect thrombus but that was dis continued after the MRI Head demonstrated a left parietal infarct with possible early hemorrhagic transformation. She was transitioned to ASA/Plavix. Neurosurgery was consulted, they recommended no acute surgical intervention, but rather she will follow up with Dr. Hoyt outpatient in 2 weeks. They recommend DAPT and not AC. ECHO showed an EF of 30-35%, along with inferior wall akinesis. She wasstarted on Losartan to decrease her mortality risk, in addition to treating her HTN. She worked forphysical and occupational therapy, they recommended discharge home with outpatient therapy. Patientwas medically stable for discharge home, her RUE weakness did improve during the admission but failed to return to her baseline function. DIAGNOSTIC AND PROCEDURAL EVENTS: - ECHO PHYSICAL EXAMINATION: - GEN: Lying in bed; in NAD, cooperative, following commands HENT: normocephalic, non-erythematous oropharynx CV: RRR, no LE edema PULM: airways patent, non-labored breathing ABD soft, ND NEURO: Mental Status: A&O x 3, interactive, able to follow commands Speech: Intact Articulation. No aphasia or dysarthria Motor: RUE: 4/5 proximal and distal LUE: 5/5 RLE: 5/5 LLE: 5/5 Sensory: Decrease to light touch in right upper extremity as compared to the left upper extremity Reflexes: 2+, no guzmán's Coordination: no ataxia with bkskip-di-ipys testing on left, not on HTS bilaterally Gait/Station: Deferred Cortical: No Extinction Stroke Discharge Template: Stroke Etiology: * Etiology:Large-artery atherosclerosis Neuropsychologic Evaluation: Mini MoCA Score: . PHQ-9 Score: 6. Suicide Screening: Discharge Suicide Screen: Has this patient had a low, moderate or high suicide severity documented during their hospital stay? No. DISCHARGE INFORMATION: DispositionHome Discharge Conditionstable (signs or symptoms of potential problems absent or manageable) Discharge MedicationsFinal Medication List for Discharge Summary Discharge Medicationsaspirin 81 mg oral tablet, chewable 1 tab(s) orally once a day atorvastatin 80 mg oral tablet 1 tab(s) orally once a day clopidogrel 75 mg oral tablet 1 tab(s) orally once a day losartan 25 mg oral tablet 1 tab(s) orally once a day Pending ResultsNo Pending Results DISCHARGE INSTRUCTIONS: Diet: Follow the Healthy Heart Diet (See instructions in your patient education handouts). Lifting: No Restrictions. Activity: No Restrictions. Recommended Follow Up Instructions: Follow Up Instructions: Follow up with: Dr. Hoyt. Follow up with: Transitions of Care: [facility]. Follow up with: [facility]. ATTESTATION STATEMENTS: Attending Attestation Statement: I saw and evaluated the patient with the resident/fellow. I discussed the case with the resident/fellow and agree with the findings and plan as documented. Electronic Signatures: Antwon Arechiga MD (Resident) (Signed 04-Aug-19 13:43) Authored: HOSPITALIZATION, DISCHARGE DIAGNOSIS, HOSPITAL COURSE, DIAGNOSTIC AND PROCEDURAL EVENTS, PHYSICAL EXAMINATION, Stroke Discharge Template, Suicide Screening, DISCHARGE INFORMATION, DISCHARGEINSTRUCTIONS, Recommended Follow Up Instructions Anusha Polk DO (Attending) (Signed 17-Aug-19 21:50) Authored: HOSPITAL COURSE Co-Signer: HOSPITALIZATION, DISCHARGE DIAGNOSIS, HOSPITAL COURSE, DIAGNOSTIC AND PROCEDURAL EVENTS,PHYSICAL EXAMINATION, Stroke Discharge Template, Suicide Screening, DISCHARGE INFORMATION, DISCHARGE INSTRUCTIONS, Recommended Follow Up Instructions Sury Jha MD (Attending) (Signed 05-Aug-19 16:54) Authored: DISCHARGE DIAGNOSIS, ATTESTATION STATEMENTS Last Updated: 17-Aug-19 21:50 by Anusha Polk DO (Attending) * Social Care Assessment Summary - ProviderIzzy MD - 08/02/2019 12:00 AM EDT Patient Name: EMILY HAWKINS Date of : 1955 Initial Evaluation Note Initial Evaluation Note Information Obtained From: Answers: Patient Current Living Situation Answers: Alone Dwelling Type Answers: House - Single Floor Housing Circumstances - Select All That Apply Answers: None applicable What is Patient's Plan at Discharge Answers: Return to Home Who Will Provide Assistance Post-Discharge? Answers: Friend How Many Hours is/are the Caregiver(s) Available? Answers: No Assistance Required Functional Status Prior to Hospitalization Answers: Independent Does Patient Have Home Health? If Yes, Specify Home Health Agency. Answers: No Does the Patient Have Home Infusion or Dialysis? If Yes, Specify Agency. Answers: No Home Infusion, Answers: No Dialysis Does Patient Have Any of the Following Hospital Equipment or DME? If Yes, Specify Type of Equipment/DME. Answers: Rolling Walker Does Patient Have Current DME Provider? If Yes, Specify Company. Answers: No Does Patient have a Primary Care Provider? Answers: Yes (if not listed or incorrect, please place Change ADT order in [facility] for registration to update PCP) Transportation Home at Time of Discharge Answers: Family/Friend Transportation to Follow up Appointments Answers: Family or Friend will Provide Does Patient Have Living Will/Advance Directives? If Yes, Instruct Patient/Family to Provide a Copy. Answers: No Does Patient Have a Power of Inside Sales Agent? If Yes, Please Specify Who and Instruct Patient/Family to Provide a Copy of Form. Answers: Yes, Medical POA daughter Lizy Raza, Answers: Yes, Financial POA vilma Raza Does Patient Have a Guardian? If Yes, Please Specify Who and Request a Copy of Legal Form. Answers: No Additional Comments: Notes: Met with pt 6-123 for initial. Pt states that she lives independently alone, drives herself but has family and friends that are able to assist and provide transportation as needed. PT/OT recs: home with outpatient PT/OT. DME: RW. PCP: Dr Hayward Pharmacy: [facility] Insurance: Passport. Electronically signed by: Jose Watts * Consults - Elvis Hoyt - 08/02/2019 12:00 AM EDT Consultation Service: Service/ Team: NS - Neurosciences. Requesting Attending Physician: Sury Jha MD(Attending): Attending, Neurology, Medicine Consult Information: * Consult Requested Date/[id number] 00:12 * Consult Completed Date/ 00:38 Chief Complaint: Requesting ServiceStroke Reason for ConsultLeft carotid stenosis Consult Note: - Neurological Surgery History and Physical 02 Aug 2019 CC: right arm weakness HPI: EDDI HAWKINS is a 64y female who presents with right arm weakness found on CTA of the neck to have 90% stenosis of the left internal carotid artery. She was working in the yard with her brother around 5 pm yesterday when she suddenly had a headache and didn't feel well. She went inside to take a nap. When she woke up, she was unable to move her right arm, so she went to the hospital. She has some decreased feeling in the right arm. She has full strength of legs. She has not had any episodes like this before. No N/V. 14 ROS complete and negative other than documented in HPI Past Medical History: 4 OH, HTN Past Surgical History: 4 stents (last 4-5 years ago) Medications: none Allergies: Allergy Status Unknown Social History: smokes 0.5 ppd for 60 years, no alcohol or drug use Family History: Reviewed and noncontributory to presenting complaint Vitals: 0.0cm 87.7kg unknown VITALS (last 24h) [retrieved for EDDI HAWKINS at 02 Aug 2019 00:54]: Tc: 37.1 Tmax: 37.1 @ 31 July 22:27 Tf: 98.7 Tmax: 98.7 @ 31 July 22:27 HR: 95 (95 - 95) BP: 143/110 (143/110 - 143/110) RR: 20 (20 - 20) SpO2: 93% (93% - 93%) Labs: LABS (last 24h) [retrieved for EDDI HAWKINS at 02 Aug 2019 00:54]: 137 102 14 < 109 Ca: 8.8 [07/31 @ 22:45] 3.6 22 1.12 WBC: 10.50 / Hb: 13.8 / Hct: 42.2 / Plt: 236 [07/31 @ 22:45] PT: 13.5 / PTT: x / INR: 1.1 [07/31 @ 22:45] AST: 13 / ALT: 14 / AlkPhos: 98 / Bili: 0.3 / Prot: 6.7 / Alb: 3.0 [07/31 @ 22:45] Physical Exam: GEN: well developed, NAD HEENT: NCAT, no scleral icterus CHEST: CTAB, no inc wob CV: RRR, No GMR ABD: Soft, NTND MSK: No joint swelling, normal ROM PSCYHE: Normal mood and affect NEURO: GCS (EMV) 4/6/5 Pupils 4 ---> 2 OU, EOMI CN 2-12 grossly intact Strength: Delt Bi Tri Resource Specialist Intrinsics RUE 0/5 2/5 2/5 3/5 3/5 LUE 5/5 5/5 5/5 5/5 5/5 HF KE DF EHL PF RLE 5/5 5/5 5/5 5/5 5/5 LLE 5/5 5/5 5/5 5/5 5/5 Sensation decreased throughout right arm Reflexes Bi (C5) BR (C6) Tri (C7) Patellar (L4) Achilles (S1) Rt 2+ 2+ 2+ 2+ 2+ Lt 2+ 2+ 2+ 2+ 2+ FNF intact w/o dysmetria or ataxia Guzmán's absent Radiology: CT of the head does not show any acute abnormality. CTA of the head shows narrowing of carotid siphones. CTA of the neck shows a severe left sided stenosis of the internal carotid artery, up to 90%. Assessment and Plan: EDDI HAWKINS is a 64y female presenting with left carotid stenosis. Plan: - no acute neurosurgical intervention. Likely has an acute stroke which are not safe to intervene upon in the acute setting - Recommend DAPT with ASA/Plavix - recommend MRI of the head STAT - NS will update with recommendations Thank you for allowing us to participate in the care of this patient. Please call with any questions. Lukas Vásquez MD PGY-2, Neurosurgery Electronic Signatures: lEvis Hoyt MD (Attending) (Signed 02-Sep-19 12:09) Co-Signer: EVALUATION, CONSULTATION SERVICE Lukas Vásquez MD (Resident) (Signed 02-Aug-19 01:05) Authored: EVALUATION, CONSULTATION SERVICE Last Updated: 02-Sep-19 12:09 by Elvis Hoyt MD (Attending) * ED Notes - Izzy Angeles MD - 08/01/2019 12:00 AM EDT Registration:: ED Presentation: * ED Arrival Date & Time:01-Aug-2019 22:14 * Reason for Visit:Adult ALYSSA/Eta, Female/ETA: 7 form tigist/CT then EDRM: 60/LKN:2000/right side weakness Disposition: : Boarding Evaluation: * Will this patient be boarding in the ED?yes * What location is the patient boarding for?Stroke PCU = [facility] Electronic Signatures: Vikki Henry (Clerical Staff) (Signed 01-Aug-19 22:14) Authored: Registration: Cricket Rajput RN (Nurse) (Signed 01-Aug-19 23:16) Authored: Disposition: Last Updated: 01-Aug-19 23:16 by Cricket Rajput RN (Nurse) * ED Notes - Long Fung Brant Mazin - 08/01/2019 12:00 AM EDT Evaluation: - CHIEF COMPLAINT: Right-sided weakness HISTORY OF PRESENT ILLNESS: 64 year old Female presenting to the emergency department with right arm weakness. She was working in her garden this evening when she felt a left-sided headache. She wentto take a nap around 17:30 and when she woke up around 18:00 she was unable to move her right arm. No weakness in her legs. No speech difficulty, vision changes. She does not take any medicines. No recent illness, fevers, chills, nausea, vomiting. No current chest pain, neck pain, pain in her rightshoulder. She previously took anti epileptics, does not take any medications at this time. PAST MEDICAL HISTORY: Coronary artery disease, hyperlipidemia PAST SURGICAL HISTORY: cardiac stents x4 ALLERGIES: Reviewed per nursing records. SOCIAL HISTORY: Current everyday tobacco use. Negative for current alcohol, or recreational drug use. FAMILY MEDICAL HISTORY: Reviewed with patient and not pertinent REVIEW OF SYSTEMS: All systems were reviewed with the patient and negative except as noted in the HPI. VITALS (last 24h) [retrieved for YOGIEDDI Suarez EMILY at 02 Aug 2019 03:43]: Tc: 37.1 Tmax: 37.1 @ 31 July 22:27 Tf: 98.7 Tmax: 98.7 @ 31 July 22:27 HR: 95 (95 - 95) BP: 143/110 (143/110 - 143/110) RR: 20 (20 - 20) SpO2: 93% (93% - 93%) PHYSICAL EXAM: GENERAL: Well-developed, well-nourished, no acute distress HEENT: Normocephalic, atraumatic. PERRL. Mucous membranes moist NECK: No LAD, neck supple, no tracheal deviation HEART: Regular rhythm, no murmurs, gallops, or rubs appreciated LUNGS: Clear bilaterally with normal effort and good air movement. No wheezes, rales, or rhonchi ABDOMEN: Soft, nontender, nondistended. Bowel sounds present EXTREMITIES: Moving all four extremities with no acute deformity or joint effusions SKIN: Warm, dry, well-perfused, no rashes NEURO: Alert, awake, and oriented to person, place, and time. Right-sided upper extremity near flaccid paralysis. Minimal high school social studies teacher strength. Arm drop on the right. Abnormal sensation. Left upper extremity high school social studies teacher strength and arm raise intact. Grossly nonfocal with intact strength and sensation to bilateral lower extremities LABS/IMAGING: LABS (last 24h) [retrieved for EDDI HAWKINS at 02 Aug 2019 03:43]: 137 102 14 < 109 Ca: 8.8 [07/31 @ 22:45] 3.6 22 1.12 WBC: 10.50 / Hb: 13.8 / Hct: 42.2 / Plt: 236 [07/31 @ 22:45] PT: 13.5 / PTT: x / INR: 1.1 [07/31 @ 22:45] AST: 13 / ALT: 14 / AlkPhos: 98 / Bili: 0.3 / Prot: 6.7 / Alb: 3.0 [07/31 @ 22:45] CT HEAD IMPRESSION: No acute intracranial abnormality. CTA IMPRESSION: Occlusion of the right vertebral artery at its origin. High-grade stenosis at the left carotid bulb with likely greater than 90% stenosis by NASCET criteria. Questionable small adherent thrombus within the proximal left internal carotid versus artifact. MEDICAL DECISION MAKING: Patient was seen and examined with Dr. Fung. In summary, this is a 64 year old female presenting to the ED for evaluation of right arm weakness and headache. Patient is hypertensive on arrival to the emergency department with systolic blood pressure of 170. Fingerstick blood glucose is 114. Other vital signs are stable . DDx includes acute ischemic stroke, hemorrhagicstroke, peripheral neuropathy, complex migraine. Neurology stroke service present on patient arrival to the emergency department. She has taken emergently to CT scan for noncontrast head CT and CTA of the head and neck. Will obtain laboratory work including CBC, CMP, PT, PTT, troponin profile. Willalso obtain EKG and chest x-ray. Laboratory results are generally unremarkable. Noncontrast head CT shows no evidence of bleed. CTA shows right vertebral artery occlusion. Also shows high- grade stenosis on the left carotid, greater than 90%. On reassessment patient continues to have significant right arm weakness. No new or concerning symptoms. No speech or respiratory difficulty. Neurology Stroke will admit the patient to theirservice for further evaluation, management, treatment. IMPRESSION: 1. acute ischemic stroke 2. right arm weakness 3. CAD 4. hyperlipidemia DISPOSITION: admit to neuro stroke Arin Castillo, PGY3 Emergency Medicine Orders: Orders: * Isolation - Airborne, Reason: COVID 01-Aug-2019, Discontinued, Standard * Isolation - Contact, Reason: COVID 01-Aug-2019, Discontinued, Standard * Isolation - Eye Protection, Reason: COVID 01-Aug-2019, Discontinued, Standard * Anti Xa Level by Low Molecular Weight Heparin Protocol, Lab Information: [id number], 01-Aug-2019, Results Received, Standard * APTT (PTT), Lab Information: [id number], 01-Aug-2019, Corrected Results, Standard * C-Reactive Protein, Lab Information: [id number], 01-Aug-2019, Results Received, Standard * Comprehensive Metabolic Panel, Lab Information: [id number], 01-Aug-2019, Corrected Results, Standard * Extra Tube, Gold, Lab Information: [id number], 01-Aug-2019, Results Received, Standard * Extra Tube, Green, Lab Information: [id number], 01-Aug-2019, Results Received, Standard * Extra Tube, Lavender, Lab Information: [id number], 01-Aug-2019, Results Received, Standard * Hemoglobin A1c, Lab Information: [id number], 01-Aug-2019, Results Received, Standard * Hemogram With Diff, Lab Information: [id number], 01-Aug-2019, Corrected Results, Standard * Prothrombin Time, Lab Information: [id number], 01-Aug-2019, Corrected Results, Standard * Sedimentation Rate, Automated, 01-Aug-2019, Corrected Results, Standard * Troponin T, High Sensitivity, 0 hour, -Special Instructions: Should be collected immediately, 01-Aug-2019, Corrected Results, Standard * TSH, Lab Information: [id number], 01-Aug-2019, Results Received, Standard * Sedimentation Rate, Automated, Lab Information: [id number], 01-Aug-2019, Discontinued, Standard * C-Reactive Protein, Lab Information: [id number], 01-Aug-2019, Discontinued, Standard * Specimen Add on, -Add on Test Requested: Please add on Sed rate to bloo, 01-Aug-2019, Specimen inLab, Standard * Specimen Add on, -Add on Test Requested: Please add on CRP to blood in, 01-Aug-2019, Specimen in Lab, Standard * Hemoglobin A1c, Lab Information: [id number], 01-Aug-2019, Discontinued, Standard * TSH, Lab Information: [id number], 01-Aug-2019, Discontinued, Standard * Anti Xa Level by Unfractionated Heparin Protocol, 01-Aug-2019, Available for Activation, Standard * Hemogram, 01-Aug-2019, Available for Activation, Standard * Prothrombin Time, 01-Aug-2019, Available for Activation, Standard * Specimen Add on, -Add on Test Requested: Please add on Hem A1c to blood, 01-Aug-2019, Specimen inLab, Standard * Specimen Add on, -Add on Test Requested: Please add on TSH to blood in, 01-Aug-2019, Specimen in Lab, Standard * Anti Xa Level by Unfractionated Heparin Protocol, Lab Information: [id number], 02-Aug-2019, Results Received, Standard * SARS CoV2/COVID 19, Symptomatic, 02-Aug-2019, Results Received, Standard * Comprehensive Metabolic Panel, Lab Information: [id number], 02-Aug-2019, Results Received, Standard * Comprehensive Metabolic Panel, Lab Information: [id number], 02-Aug-2019, Results Received, Standard * Hemogram, Lab Information: [id number], 02-Aug-2019, Results Received, Standard * Hemogram, Lab Information: [id number], 02-Aug-2019, Results Received, Standard * Lipid Profile, Lab Information: [id number], 02-Aug-2019, Results Received, Standard * Lipid Profile, Lab Information: [id number], 02-Aug-2019, Results Received, Standard * Magnesium Level, Lab Information: [id number], 02-Aug-2019, Results Received, Standard * Magnesium Level, Lab Information: [id number], 02-Aug-2019, Results Received, Standard * Phosphorus, Lab Information: [id number], 02-Aug-2019, Results Received, Standard * Phosphorus, Lab Information: [id number], 02-Aug-2019, Results Received, Standard * Troponin T , High Sensitivity, 2 hour, -Special Instructions: Should be collected 2 hours after Troponin T, High Sensitivity, 0 hour, 02-Aug-2019, Results Received, Standard * Extra Tube, Blue, Lab Information: [id number], 02-Aug-2019, Results Received, Standard * Extra Tube, Gold, Lab Information: [id number], 02-Aug-2019, Results Received, Standard * Anti Xa Level by Unfractionated Heparin Protocol, Lab Information: [id number], 02-Aug-2019, Results Received, Standard * Anti Xa Level by Unfractionated Heparin Protocol, Lab Information: [id number], 02-Aug-2019, Results Received, Standard * Anti Xa Level by Unfractionated Heparin Protocol, Lab Information: [id number], 02-Aug-2019, Results Received, Standard * Extra Tube, Blue, Lab Information: [id number], 02-Aug-2019, Results Received, Standard * CT Head without IV Contrast, Radiology Location: ED Method of Transport: Stretcher RIS Number: [id number], 01-Aug-2019, Results Received, Standard * CTA Head, Radiology Location: ED Method of Transport: Stretcher RIS Number: [id number], 01-Aug-2019, Results Received, Standard * CTA Neck, Radiology Location: ED Method of Transport: Stretcher RIS Number: [id number], 01-Aug-2019, Results Received, Standard * Chest 1 View Pa/Ap Portable - AED, Bedside RIS Number: [id number], 01-Aug-2019, Results Received, Standard * Chest 1 View PA/AP, Bedside RIS Number: [id number], 01-Aug-2019, Cancelled by Performing Department, Standard * MR Head without IV Contrast, Radiology Location: [place] Method of Transport: Stretcher RIS Number: [id number], 01-Aug-2019, Discontinued, Standard * MR Head without IV Contrast, Radiology Location: [place] Method of Transport: [place] RIS Number: [id number], 02-Aug-2019, Results Received, Standard * ECHO - Complete , Complete ECHO recommended if: 1) NEW onset afib 2) Embolic appearing stroke of u, 02-Aug-2019, Completed, Standard * Heparin Inj., Dose = 5000 units SubCutaneous every 8 hours First Dose Now, 01-Aug-2019, Discontinued, Standard * Aspirin, Tablet, Chewable Dose = 81 MG Oral Once a day, 01-Aug-2019, Active, Standard * Atorvastatin, Tablet [Known as LIPITOR] Dose = 80 MG Per Tube once a day (at bedtime), 01-Aug-2019, Active, Standard * Labetalol Inj., Solution Dose = 10 - 20 MG IntraVenous Push every 10 minutes PRN For non-TPA SBP > 220 & DBP > 110 and for tPA patient PRN SBP > 180 and DBP > 105 For non-tPA patients-MAX dose is 50 mg. Target Value: SBP < 220 & DBP < 110 IV Push Max Rate: 10 mg/min, 01-Aug-2019, Discontinued, Standard * Heparin Inj. Drip (Sliding Scale), Dose= 1000 units/hr IntraVenous COM - Adult Low Dose Heparin Protocol Note: Inital rate of 12 units/kg/hour. If Anti Xa is in target range, maintain current rate and repeat Anti Xa every 6 hours until within therapeutic range x2, then daily with AM labs. INITIAL MAX of 1000 units/hour (10 mL/hr). Drug Amount: 59313 units in Base Diluent 250 mL If Anti-Xa < 0.11 increase by 180 units/hr If Anti-Xa = 0.11 - 0.24 increase by 90 units/hr If Anti-Xa = 0.25 - 0.5 maintain units/hr If Anti-Xa = 0.51 - 0.7 decrease infusion rate by 90 units/hr If Anti-Xa = 0.71 - 0.89 hold infusion for one hour and decrease by 180 units/hr If Anti-Xa > = 0.9 hold infusion for two hours and decrease by 260 units/hr Ensure specimen not contaminated with Heparin, 01-Aug-2019, Discontinued, Standard * Magnesium Sulfate Inj. (IVPB), Dose = 1 gram IntraVenously once, 01-Aug-2019, Completed, Standard * Pharmacy Consult - [id number] [place], 02-Aug-2019, Active, Standard * Labetalol Inj., Solution Dose = 10 - 20 MG IntraVenous Push every 10 minutes PRN for sBP >180, 02-Aug-2019, Active, Standard * Clopidogrel, Tablet [Known as PLAVIX] Dose = 75 MG Oral once a day, 02-Aug-2019, Active, Standard * IV Fluid Bolus, 500 mL - Normal Saline, 01-Aug-2019, Completed, Standard * [facility] Neurocognitive Screening for Discharge Evaluation - PHQ-9 and Jorge YOO, 01-Aug-2019, Order Sent to Department, Standard * ECG - RT, After CT Scan is completed upon arrival to room, 01-Aug-2019, Completed, Standard * ECG - RT, 01-Aug-2019, Completed, Standard * Nasal Cannula, Fi02 or LPM: 2L = 28%; Titrate to keep O2 saturation > 94%., 01-Aug-2019, Active, Standard * Diet Adult, STAT; Cardiac Diet / No Added Salt; Regular (REG); Cardiac (CARD); No Added Salt (NARENDRA), 01-Aug-2019, Active, Standard * Admit, Adult, Inpatient;Progressive Care, Stroke, 01-Aug-2019, Active, Standard * Hard Telemetry, 01-Aug-2019, Active, Standard * Final Transfer, A06 123 Progressive stroke;[facility] Stroke Unit, 02-Aug-2019, Completed, Standard * Motor Installer, <Continuous>, 01-Aug-2019, Active, Standard * Finger Stick Glucose Monitoring, once, 01-Aug-2019, Active, Standard * Fall Prev Protocol, <Continuous>, 01-Aug-2019, Discontinued, Standard * Nursing Hourly Rounding, Instruction text from [facility]_OBJ_DOC_SN_ED_REGIS, 01-Aug-2019, Active, Standard * Sequential Compression Device, 01-Aug-2019, Active, Standard * Telemetry, Continuous - Based on criteria, the Central Monitoring Station, 01-Aug-2019, Active, Standard * Admission Screenings, 01-Aug-2019, Active, Standard * Advanced Directives, 01-Aug-2019, Active, Standard * Assess Skin Integ, <Continuous>, 01-Aug-2019, Active, Standard * Core Measures Alert - Stroke, <Continuous>, 01-Aug-2019, Discontinued, Standard * Fall Prev Protocol, <Continuous>, 01-Aug-2019, Discontinued, Standard * MODERATE RISK for VTE/PE, 01-Aug-2019, Active, Standard * Patient Profile Complete, 01-Aug-2019, Discontinued, Standard * Reviewed Daily Care Plan, <Continuous>, 01-Aug-2019, Active, Standard * Reviewed Physicians H&P, 01-Aug-2019, Active, Standard * Core Measures Alert - Stroke, <Continuous>, 01-Aug-2019, Active, Standard * Dysphagia Screen, <Continuous> Prior to ANY PO intake (including medications, ice chips, food or fluids), 01-Aug-2019, Discontinued, Standard * Fall Prev Protocol, <Continuous>, 01-Aug-2019, Active, Standard * Head of Bed Elevated, Degrees: 030, Inst: 30 Degrees, 01-Aug-2019, Active, Standard * Intake & Output, <Continuous> q shift, 01-Aug-2019, Active, Standard * IV Peripheral Access, <Continuous>, 01-Aug-2019, Active, Standard * Mobility Orders, Mobility Guidelines: General Mobility Guidelines Weight Bearing Orders: No restrictions Spinal Precautions: No cervical or thoracolumbar spinal precautions necessary Bracing Orders: No brace required Other Mobility Precautions: No other precautions required, 01-Aug-2019, Active, Standard * Neurologic Checks, as scheduled Every 2 hours for 48 hours; then every 4 hours x 24 hrs. After initial 72 hrs, GCS should be assessed every 8 hours and with any acute neurological change until discharge., 01-Aug-2019, Active, Standard * NIH Stroke Scale, as scheduled Every 2 hrs X 48 hrs, then every 4 hrs X 24 hrs. After initial 72 hrs, NIHSS should also be assessed every 12 hrs and with any acute neurological decline until discharge., 01-Aug-2019, Active, Standard * Notify Pharmacy, <Continuous> Please review steroid use with attending MD., 01-Aug-2019, Discontinued, Standard * Notify Pharmacy, <Continuous> Please standardize medication times to reduce influx into thepatients room for dosing., 01-Aug-2019, Discontinued, Standard * Notify physician for (details), prn Open for Detail`Change in neurologic status. SBP >220 or <90; DBP >110 or <60; HR >110 or <50; RR >24 or <10; Temperature >100.4; SpO2<94%, 01-Aug-2019, Active, Standard * Patient/Family Education, <Continuous> Stroke Education prior to discharge, 01-Aug-2019, Active, Standard * Special Order - Nursing, Patient may NOT receive Nebulizer treatment. Exception: Patient is unable to use MDI., 01-Aug-2019, Discontinued, Standard * Special Order - Nursing, No BiPAP or HFNC. Exception: Patient in negative pressure room on 10-200., 01-Aug-2019, Discontinued, Standard * Special Order - Nursing, Patient may not receive STEROIDS without attending approval., 01-Aug-2019, Discontinued, Standard * Special Order - Nursing, All bedside testing requires Attending to Attending discussion about risks/benefits., 01-Aug-2019, Discontinued, Standard * Special Order - Nursing, Patient should not be sent for scans or testing outside of patient room unless authorized by Attending., 01-Aug-2019, Discontinued, Standard * Stroke Telemetry Instructions, Progressive stroke patients may leave unit for testing without telemetry (ICU patients must remain on continuous telemetry), 01-Aug-2019, Active, Standard * Vital Signs with O2 Sats, <Continuous> Every 4 hrs x 24 hours, then every shift., 01-Aug-2019, Active, Standard * Assess Sx of Bleed, q shift Notify physician for signs of increased bruising, bleeding gums, blood in urine or stool, bleeding at artierial stick sites and bleeding at surgical sites., 01-Aug-2019,Active, Standard * D/C All Other Heparin Products, <Continuous> When heparin drip started., 01-Aug-2019, Active, Standard * Infusion Rate Adjustment per Protocol, <Continuous> CHART ALL DOSE ADJUSTMENTS. DOUBLE CHECK ANY RATE CHANGES., 01-Aug-2019, Active, Standard * Non-Bolus Heparin Strategy, <Continuous> Patient not appropriate to receive bolus or re-bolus. Adjust heparin rate according to heparin protocol., 01-Aug-2019, Active, Standard * Notify Physician For, Open for Detail, 01-Aug-2019, Active, Standard * Change ADT Attending/Service, 02-Aug-2019, Active, Standard * Peripheral IV Care A, <Continuous> left, Basilic vein (lateral forearm), 02-Aug-2019, Active, Standard * Peripheral IV Care B, <Continuous> right, Basilic vein (lateral forearm), 02-Aug-2019, Active, Standard * Smoking Cessation / Education, Once Education Comments: This patient requires Smoking Cessation Education 1. Select the Education Resource Link below and Print Copy for Patient 2. When educatioin is complete you MUST radha the task as performed on the Patient Care Worklist, 02-Aug-2019, Active, Standard * Inpatient OT Consult, Stroke Rehab, 01-Aug-2019, Completed, Standard * Inpatient PT Consult, Stroke Rehab, 01-Aug-2019, Completed, Standard * Speech Consult, Stroke Rehab, 01-Aug-2019, Completed, Standard * TeleTracking Notification, Isolation - COVID-19-RO, 01-Aug-2019, Completed, Standard * TeleTracking Notification, Isolation - COVID-19-RO, 01-Aug-2019, Completed, Standard * TeleTracking Notification, Isolation - COVID-19-RO, 01-Aug-2019, Completed, Standard * TeleTracking Notification, Isolation - COVID-19-RO, 01-Aug-2019, Completed, Standard * TeleTracking Notification, Isolation - COVID-19-RO, 01-Aug-2019, Completed, Standard * TeleTracking Notification, Isolation - COVID-19-RO, 01-Aug-2019, Completed, Standard * TeleTracking Notification, Isolation - COVID-19-RO, 02-Aug-2019, Completed, Standard * TeleTracking Notification, Isolation - COVID-19-RO, 02-Aug-2019, Completed, Standard * TeleTracking Notification, Isolation - COVID-19-RO, 02-Aug-2019, Completed, Standard * TeleTracking Notification, Isolation - COVID-19-RO, 02-Aug-2019, Completed, Standard * TeleTracking Notification, Isolation - COVID-19-RO, 02-Aug-2019, Completed, Standard * TeleTracking Notification, Isolation - COVID-19-RO, 02-Aug-2019, Completed, Standard * TeleTracking Notification, Isolation - COVID-19-RO, 02-Aug-2019, Completed, Standard * TeleTracking Notification, Isolation - COVID-19-RO, 02-Aug-2019, Completed, Standard * TeleTracking Notification, Isolation - COVID-19-RO, 02-Aug-2019, Completed, Standard * TeleTracking Notification, Isolation - COVID-19-RO, 02-Aug-2019, Completed, Standard * TeleTracking Notification, Isolation - COVID-19-RO, 02-Aug-2019, Completed, Standard * TeleTracking Notification, Isolation - COVID-19-RO, 02-Aug-2019, Completed, Standard * TeleTracking Notification, Isolation - COVID-19-RO, 02-Aug-2019, Completed, Standard * TeleTracking Notification, Isolation - COVID-19-RO, 02-Aug-2019, Completed, Standard * TeleTracking Notification, Isolation - COVID-19-RO, 02-Aug-2019, Completed, Standard * TeleTracking Notification, Isolation - COVID-19-RO, 02-Aug-2019, Completed, Standard * Correct Medical Record Number, 02-Aug-2019, Active, Standard * Stroke Response Alert (CHG), 01-Aug-2019, Charge Completed, Standard * Complete Study Charge (Includes TTE with Doppler and Color Flow), 02-Aug-2019, Charge Completed, Standard * Portable, 02-Aug-2019, Charge Completed, Standard Attending Attestation: I saw and evaluated the patient. I discussed the case with the resident/fellow and agree with the findings and plan as documented. Electronic Signatures: Antonieta TELLEZ, Long Connor (Attending) (Signed 02-Aug-19 23:21) Authored: Orders, ATTENDING ATTESTATION/ CRITICAL CARE CHARGING Co-Signer: EVALUATION Flower DO, Arin E (Resident) (Signed 02-Aug-19 03:46) Authored: EVALUATION Last Updated: 02-Aug-19 23:21 by Long Fung MD (Attending) * Consults - Anusha Polk - 08/01/2019 12:00 AM EDT Neurology HPI: * Chief Complaint: Stroke alert: Right arm weakness and numbness * Admitting Diagnosis: Right arm weakness * Requesting Service and Attending: ER: Dr. Vaughan * Consulting Service: HONG - Neurology / Neurology (NEURO) * Reason for Consult: Stroke alert: Right arm weakness numbness * History of Present Illness: Ms. 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 Last known normal 6:00 p.m. on July 31. NIHSS stroke scale of 3 on initial assessment. Patient reported that she was working in a lawn with her son in the afternoon at around 4:00 p.m. she started having the left evangelical headache that she described as sharp pain and she thought she should lay down and rest. Stated that she went to bedat around 6:00 p.m. and woke up around 8:30 p.m. with right upper extremity weakness and numbness. P atient stated that she has history of migraine headaches since she has the age of 7 and takes ibuprofen for her headaches. Stated that this headache was not usual for her as her migraine headaches are associated with nausea and vomiting and sometimes photophobia and phonophobia. However, this headache was not associated with nausea, vomiting or any of other migrainous features. CT head without contrast showed no acute intracranial abnormality, no hemorrhage. 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 Also, approximately 30% stenosis of the right ICA ROS: 14 point ROS negative except positives and negatives as noted in HPI. PMH/PSH: CAD s/p PCI and 4 stents HTN HLD Migraine headaches Tobacco use FH: Positive for stroke SH: Smokes one pack in 2 days, denied alcohol or illicit drug use VITAL SIGNS VITALS (last 24h) [retrieved for ARMANDO, FEMALE at 02 Aug 2019 00:04]: Tc: 37.1 Tmax: 37.1 @ 31 July 22:27 Tf: 98.7 Tmax: 98.7 @ 31 July 22:27 HR: 95 (95 - 95) BP: 143/110 (143/110 - 143/110) RR: 20 (20 - 20) SpO2: 93% (93% - 93%) PHYSICAL EXAM GEN: Lying in bed; in NAD, cooperative, following commands HENT: normocephalic, non-erythematous oropharynx. Mild left scalp tenderness. Temporal artery palpable on the left CV: RRR, no LE edema PULM: airways patent, non-labored breathing ABD soft, ND EXT: no clubbing, cyanosis, or erythema SKIN: no rashes or lesions NEURO: Mental Status: A&O x 3, interactive, able to follow commands Speech: Intact Articulation. No aphasia or dysarthria Fundoscopic: No papilledema CN 2-12: II - MICK, VFs full to confrontation III, IV, - EOMI V - Facial sensation intact VII - Brow raise and smile symmetrical VIII - Auditory acuity intact IX, X - Palate elevation symmetric, uvula midline XI - SCM and Trapezius strength intact XII - Tongue protrudes midline Motor: RUE: 2+/5 proximal and distal LUE: 5/5 RLE: 5/5 LLE: 5/5 Sensory: Decrease to light touch in right upper extremity as compared to the left upper extremity Reflexes: 2+, no guzmán's Coordination: no ataxia with [id number] testing on left, not on HTS bilaterally Gait/Station: Deferred Cortical: No Extinction LABS: LABS (last 24h) [retrieved for ARMANDO, FEMALE at 02 Aug 2019 00:04]: 137 102 14 < 109 Ca: 8.8 [07/31 @ 22:45] 3.6 22 1.12 WBC: 10.50 / Hb: 13.8 / Hct: 42.2 / Plt: 236 [07/31 @ 22:45] PT: 13.5 / PTT: x / INR: 1.1 [07/31 @ 22:45] AST: 13 / ALT: 14 / AlkPhos: 98 / Bili: 0.3 / Prot: 6.7 / Alb: 3.0 [07/31 @ 22:45] IMAGING: CT head without contrast showed no acute intracranial abnormality, no hemorrhage, showed chronic microvascular changes CTA head and neck consistent with 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 Also, approximately 30% stenosis of the right ICA ASSESSMENT AND PLAN Ms. 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 Last known normal 6:00 p.m. on July 31. NIHSS stroke scale of 3 on initial assessment. #Right upper extremity weakness (POA) #Right upper extremity hypoesthesia (POA) #Severe L ICA stenosis (POA) #Possible proximal left ICA thrombus (POA) -Mechanism: Likely atheroembolic vs. 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 Also, approximately 30% stenosis of the right ICA -No tPA offered as pt presented outside therapeutic window -No thrombectomy as no LVO demonstrated Plan: -Started on non-bolus low dose heparin drip -MRI head without contrast -Echocardiogram -NS consulted for left ICA 90% stenosis - appreciate assistance -Secondary prophylaxis ASA+ atorvastatin -NIHSS scale on admission and daily -Blood pressure goal: Permissive HTN x 24hrs: SBP < 220mmHg, DBP < 110mmHg. PRN labetalol ordered -Bedside dysphagia: Passed -Swallowing eval/speech -PT/OT evaluation -Neuropsych screen: MOCA, PHQ prior to discharge #Left temporal headache (POA) #H/o migraine headache (POA) -Patient has h/o migraine headaches since age 7 and has 2-3 migraine headache attacks in one month.Takes ibuprofen 4 tablets for headache. But this headache was different from her regular migraine headaches as it has been intense sharp left side headache with no migrainous features. Given atypicalnature of the headache: New semiology of migraine headache, temporal arteritis (however no temporaltenderness), trigeminal neuralgia given V1 region involvement (less likely) -Fluid bolus with NS -Intravenous magnesium -Check ESR, CRP -Consider starting on preventative and abortive therapy for migraine headaches on discharge -Continue to monitor #JIN (POA) -Cr 1.12 on admission -Baseline creatinine not known -Per patient she has only one kidney working as she lost function of one kidney after an accident -Likely pre-renal etiology -Fluid bolus with NS -Continue to monitor #Tobacco use (POA) -NRT while in hospital Other conditions #CAD s/p PCI and 4 stents #HTN #HLD #Migraine headaches #Tobacco use -Restart home medications pending med rec and as appropriate F: Po intake E: monitor and replace prn N: Replace as needed PPX: SCD's, heparin drip Disposition: Admit to stroke PCU Discussed and staffed with the attending Michael Venegas, [id number] [phone] NIH Stroke Scale: NIH Stroke Scale: * NIH Stroke Scalebaseline * NIH Stroke Scale(0) alert; keenly responsive * NIH Stroke Scale(0) Answers both questions correctly * NIH Stroke Scale(0) Performs both tasks correctly * NIH Stroke Scale(0) Normal * NIH Stroke Scale(0) No visual loss * NIH Stroke Scale(0) Normal symmetrical movements * NIH Stroke Scale(0) No drift; limb holds 90 (or 45) degrees for full 10 secs * NIH Stroke Scale(2) Some effort against gravity; limb cannot get to or maintain (if cued) 90 (or 45) degrees, drifts down to bed, but has some effort against gravity * NIH Stroke Scale(0) No drift; leg holds 30 degree position for full 5 secs * NIH Stroke Scale(0) No drift; leg holds 30 degree position for full 5 secs * NIH Stroke Scale(0) Absent * NIH Stroke Scale(1) [id number]-[id number] sensory loss; patient feels pinprick is less sharp or is dull on the affected side; or there is a loss of superficial pain with pinprick, but patient is aware of being touched * NIH Stroke Scale(0) No aphasia; normal * NIH Stroke Scale(0) Normal * NIH Stroke Scale(0) No abnormality * NIH Stroke Scale Total3 Results and Procedure Interpretation: Attestation Statements : Attending Attestation Statement: I saw and evaluated the patient. I discussed the case with the resident/fellow and agree with the findings and plan as documented. Electronic Signatures: Anusha Polk DO (Attending) (Signed 16-Aug-19 19:06) Authored: Results and Procedure Interpretation, Attestation Statements Co-Signer: General, Results and Procedure Interpretation Sury Jha MD (Attending) (Signed 05-Aug-19 18:07) Co-Signer: General, Results and Procedure Interpretation Michael Venegas MD (Resident) (Signed 02-Aug-19 00:09) Authored: General, Physical Exam, Results and Procedure Interpretation Last Updated: 16-Aug-19 19:06 by Anusha Polk DO (Attending) documented in this encounter Plan of Treatment Not on file documented as of this encounter Visit Diagnoses Diagnosis Cerebral infarction, unspecified (CMS/HCC) documented in this encounter
--- NOTE | 2024-02-01 17:28 | PC.NURSE ---
Pt has rested in bed this shift, she has not c/o soa/dyspnea. lungs upon 1630 reassessment have crackles in evelin bases and diminished throughout. bowel sounds are active in all quads. pt is a/o x 4. lobo cath in place draining clear yellow urine. nad noted.
[2024-02-01] MEDS: PANTOPRAZOLE 40MG TABLET 40 MG PO (20:47)
[2024-02-01] MEDS: CEFTRIAXONE SODIUM 1 GM in 0.9 % SODIUM CHLORIDE 50 ML IV (20:47)
--- NOTE | 2024-02-01 20:52 | P.PN_ITS ---
<Statement entered by Willy Ortiz MD - 02/03/24 17:43> I personally evaluated patient and agree with the plan of care as outlined by the SCHOOL BUS DRIVER/TEACHER ASSISTANT. Subjective *Date: 02/01/24 *Time: 20:52 Exam Data for Last 24 hours Vital signs and Labs for Last 24 Hours: Temp Pulse Resp BP Pulse Ox O2 Del Method O2 Flow Rate 97.4 F L 88 22 118/70 97 Nasal Cannula 5 02/01/24 16:00 02/01/24 18:21 02/01/24 16:00 02/01/24 16:00 02/01/24 18:21 02/01/24 18:55 02/01/24 18:55 Laboratory Results - last 24 hr 01/31/24 20:45: VBG pH 7.35, VBG pCO2 43.7, VBG pO2 23.3 L, VBG HCO3 23.6, VBG Total CO2 25.0, VBG O2 Saturation 35.0 L, VBG Base Excess -2.0, VBG Lactic Acid 2.9 H 01/31/24 20:49: WBC 15.1 H, RBC 4.64, Hgb 12.6, Hct 39.5, MCV 85.0, MCH 27.2, MCHC 31.9, RDW 15.5, Plt Count 444 H, MPV 7.6, Neut % (Auto) 86.4 H, Lymph % (Auto) 7.3 L, Bowie % (Auto) 5.6, Eos % (Auto) 0.3, Baso % (Auto) 0.3, Neut # (Auto) 13.0 H, Lymph # (Auto) 1.1, Bowie # (Auto) 0.8, Eos # (Auto) 0.1, Baso # (Auto) 0.1, Total Counted 100, Neutrophils % (Manual) 88 H, Lymphocytes % (Manual) 11, Eosinophils % (Manual) 1, Platelet Estimate Normal, Giant Platelets 1+, Anisocytosis 1+, Microcytosis 1+, Macrocytosis 1+, Spherocytes 1+, PT 12.1, INR 1.09, Sodium 138, Potassium 4.0, Chloride 105, Carbon Dioxide 23, Anion Gap 14.0, BUN 25 H, Creatinine 1.60 H, Estimated GFR 32 L, Est GFR ( Amer) 39 L, Glucose 171 H, Calcium 9.6, Magnesium 2.1, Total Bilirubin 0.6, AST 29, ALT 27, Alkaline Phosphatase 141 H, Troponin I 0.05 H, NT-Pro-B Natriuret Pep > 10002 H, Total Protein 7.0, Albumin 3.9, Globulin 3.1, Albumin/Globulin Ratio 1.3, HIV 1&2 Antibody Rapid Nonreactive 01/31/24 21:27: Urine Color Yellow, Urine Appearance Clear, Urine pH 6.5, Ur Specific Pope >= 1.030, Urine Protein 2+ A, Urine Glucose (UA) Negative, Urine Ketones Negative, Urine Blood Negative, Urine Nitrate Negative, Urine Bilirubin Negative, Urine Urobilinogen 1.0, Ur Leukocyte Esterase Negative, Urine RBC 10-20, Urine WBC 50-100, Ur Squamous Epith Cells 10-20, Urine Bacteria 4+ 02/01/24 00:19: Lactate 1.2, Troponin I 0.06 H 02/01/24 03:15: Troponin I 0.06 H 02/01/24 05:29: WBC 11.7 H, RBC 4.32, Hgb 11.6 L, Hct 36.3 L, MCV 84.0, MCH 26.8 L, MCHC 31.9, RDW 15.6, Plt Count 314 D, MPV 7.8, Neut % (Auto) 93.4 H, Lymph % (Auto) 3.6 L, Bowie % (Auto) 2.9, Eos % (Auto) 0.0 L, Baso % (Auto) 0.1, Neut # (Auto) 10.9 H, Lymph # (Auto) 0.4 L, Bowie # (Auto) 0.3, Eos # (Auto) 0.0, Baso # (Auto) 0.0, Total Counted 100, Neutrophils % (Manual) 95 H, Lymphocytes % (Manual) 3 L, Monocytes % (Manual) 2, Platelet Estimate Normal, RBC Morphology Normal, Sodium 139, Potassium 3.9, Chloride 106, Carbon Dioxide 24, Anion Gap 12.9, BUN 25 H, Creatinine 1.50 H, Estimated Creat Clear 41, Estimated GFR 34 L, Est GFR ( Amer) 42 L, Glucose 134 H D, Hemoglobin A1c 5.3, Calcium 9.1, Magnesium 1.9, Total Bilirubin 0.4, AST 25, ALT 22, Alkaline Phosphatase 118, Total Protein 6.2 L, Albumin 3.3 L D, Globulin 2.9, Albumin/Globulin Ratio 1.1, Triglycerides 89, Cholesterol 127 L, LDL Cholesterol Direct 67.53 L, VLDL Cholesterol 18, HDL Cholesterol 37 L, Cholesterol/HDL Ratio 3.4, TSH 0.29 L, Free T4 2.04 I & O for Last 24 hours: Intake & Output 01/29/24 01/30/24 01/31/24 02/01/24 23:59 23:59 23:59 23:59 Intake Total 0.725 / 220.725 880 / 880 Output Total 1440 / 1440 Balance 0.725 / 220.725 -560 / -560 Weight 74.843 kg 73.618 kg Microbiology Reports for the Last 24 Hours: Microbiology 01/31/24 23:50 Sputum - Expectorated Sputum Gram Stain - Final Assessment and Plan *Assessment and plan (1) Non-ST elevation CO (NSTEMI): Status: Acute Category: Medical Code(s): I21.4 - Non-ST elevation (NSTEMI) myocardial infarction (2) Acute UTI: Status: Acute Category: Medical Code(s): N39.0 - Urinary tract infection, site not specified (3) Pneumonia: Status: Acute Category: Medical Code(s): J18.9 - Pneumonia, unspecified organism (4) Pleural effusion due to CHF (congestive heart failure): Status: Acute Category: Medical Code(s): I50.9 - Heart failure, unspecified (5) Pulmonary edema: Status: Acute Category: Medical Code(s): J81.1 - Chronic pulmonary edema (6) JIN (acute kidney injury): Status: Acute Category: Medical Code(s): N17.9 - Acute kidney failure, unspecified (7) Hypertension: Status: Acute Qualifiers: Hypertension type: unspecified Qualified Code(s): I10 - Essential (primary) hypertension Category: Medical Code(s): I10 - Essential (primary) hypertension (8) Coronary artery disease: Status: Chronic Qualifiers: Coronary Disease-Associated Artery/Lesion type: [place] artery [place] vs. transplanted heart: [place] heart Associated angina: without angina Qualified Code(s): I25.10 - Atherosclerotic heart disease of [place] coronary artery without angina pectoris Category: Medical Code(s): I25.10 - Atherosclerotic heart disease of [place] coronary artery without angina pectoris (9) S/P CABG x 3: Status: Acute Category: Surgical Code(s): Z95.1 - Presence of aortocoronary bypass graft Plan Assessment: This is a 68-year-old female being admitted for acute hypoxic respiratory failure secondary to multifocal pneumonia and acute decompensated heart failure. On my exam, patient is sitting up in bed in no acute distress. Reports her work of breathing is much improved and she is feeling better. No other complaints. Admit to inpatient-ICU Acute hypoxic respiratory failure (multifactorial due to pneumonia and CHF) Multifocal pneumonia COPD -DuoNebs every 6 hours -Maintain SpO2 greater than 92%, supplemental oxygen as needed. Patient is supposed to wear oxygen at home according to family. -Mucinex -Continue azithromycin and Rocephin -Will hold off on additional steroids at this time -Consider consult to pulmonology -Aggressive pulmonary toilet Acute CHF exacerbation Bilateral pleural effusions Pulmonary edema NSTEMI -Nitro drip currently on hold -Lasix every 12 hours -Telemetry -1500 cc fluid restriction -Repeat echo in the morning, last echo was done February 2022, Lexiscan showed an EF of 22% -Serial troponins, elevated troponin likely secondary to demand ischemia and CHF exacerbation with fluid overload -EKG as needed -Consult cardiology JIN -Baseline creatinine appears to be around 1.3 -Avoid nephrotoxic medications -Monitor serum BUN/creatinine -Renal dose medications as appropriate -Withholding fluids at this time as patient is in decompensated heart failure Acute cystitis -Continue Rocephin as above -Culture pending CAD status post three-vessel CABG -Patient denies taking any medications at home. Last fill date on 3 of her medications was in July of this year -Will defer to cardiology regarding beta-jewell, statin, antiplatelets etc Thyroid nodule -finding on CT. Does appear pt had an US Jan 2023, recommended biopsy but patient did not follow up Tobacco abuse -Tobacco cessation counseling given -As needed nicotine patch DVT prophylaxis: Heparin CODE STATUS: Full code Surrogate decision maker: Lizy [phone] Skin: Moderate risk Estimated length of stay: Greater than 2 midnights
[2024-02-01] MEDS: AZITHROMYCIN 500 MG in 0.9 % SODIUM CHLORIDE 250 ML 250 MG IV (21:19)
[2024-02-02] VITALS (8 sets, daily range): BP systolic 102–145; BP diastolic 64–80; PULSE 85–100; RESP 12–16; TEMP 36.2–37; O2SAT 92–97; BMI 28.5
[2024-02-02] MEDS: IPRATROPIUM/ALBUTEROL 3 ML NEB IH ×3 (01:21→11:17)
[2024-02-02] MEDS: BENZONATATE 100MG CAPSULE 100 MG PO (01:36)
--- NOTE | 2024-02-02 06:15 | CA_ITS ---
APPROVED REPORT EXAM: Comprehensive 2D, Doppler, and color-flow Echocardiogram Integrated Campaign Manager: ANGELINA Philip, RVS Ht: 5 ft 6 in Wt: 177lbs BSA: 1.90 BP: 118/70 mmHg Indications: CHF, COPD, Smoker Echo Enhancing Agent Comments: TDS: due to patient factors 2D Dimensions IVSd 1.26 cm F: 0.6-1.0 LVEF (Visual) 42.50 % PWd 1.44 cm F: 0.6 - 1.0 LA Volume 71.10 mL LVDd 5.73 cm F: 3.9 - 5.3 LA Volume Index [id number] mL/m2 (M/F) 16-34 LVDs 4.90 cm F: 2.2 - 3.5 Left Atrium 3.34 cm F: 2.7 - 3.8 M-Mode Dimensions RVDd 1.49 cm (0.9-2.6) LA Diam 4.24 cm (1.9-4.0) LVDd 7.39 cm (3.5-5.7) LVDs 5.76 cm (3.5-5.7) IVSd 1.18 cm (0.6-1.1) PWd 1.11 cm (0.6-1.1) EF (Teich) 43.20% EPSs 1.56 cm FS 22.10% EDV (Teich) 288.60 mL TAPSE 1.65 (<1.7) ESV (Teich) 163.90 mL LV Diastology E Decel Time 117 (160-240 msec) E/A Ratio 1.37 MED A' 7.80 cm/s LAT A' 9.30 cm/s Aortic Valve RYLIE Index 0.64 cm2/m2 AoV Peak Isaias. 218.0 (50-130 cm/s) AO Peak GR. 19.10 mmHg AO Mean GR. 10.30 (<5 mmHg) AO VTI 41.8 (18-25 cm) RYLIE (VTI) 1.24 (2.5-4.5 cm2) Mitral Valve MV A Velocity 74.0 (40-130 cm/s) E/A Ratio 1.37 Pulmonary Valve PV Peak Velocity 100.0 (50-150 cm/s) Tricuspid Valve TR P. Velocity 266.00 cm/s RAP Estimate 10.00 mmHg RVSP 38.20 mmHg Left Ventricle The left ventricle is normal size. The left ventricular systolic function is mildly to moderately reduced. There is increased LV wall thickness. There is mild global hypokinesis present. Regional wall motion is difficult to evaluate due to technically difficult study. Diastolic function is indeterminate. LVEF is 40%. Right Ventricle The right ventricle is mildly dilated. Right ventricle is mildly hypokinetic. Atria The left atrium is mildly dilated. The right atrium is mildly dilated. There is no Doppler evidence of interatrial shunt. Aortic Valve Aortic valve is mildly thickened. Mild aortic stenosis is present. Peak velocity 2.3 m/s. Mean AV gradient 11 mmHg. Max AV gradient 23 mmHg. RYLIE by continuity equation is 1.7 cm2. Trace aortic regurgitation. Mitral Valve Mild mitral annular calcification. The mitral valve leaflets are mildly thickened. No evidence of mitral valve stenosis. Mild mitral regurgitation. Tricuspid Valve The tricuspid valve leaflets are thin and pliable. Mild tricuspid regurgitation. RVSP is 30-35 mmHg. Trace pulmonic regurgitation. Pulmonic Valve The pulmonary valve is normal in structure. Great Vessels The aortic root is normal in size. IVC is normal in size and collapses >50% with inspiration. Pericardium There is no pericardial effusion. Pleural effusion is present. Other Information Study Quality: Technically Difficult Conclusion Technically difficult study due to poor acoustic windows. Mild to moderate reduction in LV systolic function (LVEF 40%). Mild RV dilation with mild reduction in RV function. Biatrial dilation. Mild (Peak velocity 2.3 m/s. Mean AV gradient 11 mmHg. Max AV gradient 23 mmHg. RYLIE by continuity equation is 1.7 cm2). Mild MR, mild TR. Pleural effusion. Electronically signed by : Chelsie Hutton MD 02/02/2024 12:21:48
[2024-02-02 08:57] LABS: Alanine Aminotransferase 19 U/L (12-78); Albumin Level 2.9 g/dl (3.5-5.0); Albumin/Globulin Ratio 1.1 (1.1-1.8); Alkaline Phosphatase 91 U/L (38-126); Anion Gap 12.1 mEq/L (5-15); Aspartate Amino Transferase 19 U/L (14-36); Bilirubin,Total 0.3 mg/dl (0.2-1.3); Blood Urea Nitrogen 41 mg/dl (7-17); Calcium 8.5 mg/dl (8.4-10.2); Carbon Dioxide 27 mmol/L (22.0-30.0); Chloride 107 mmol/L (98-107); Creatinine Clearance Estimated 28 mL/min (50-200); Estimated Glomerular Filt Rate 20 ml/min (>60); GFR (African American) 24 ML/MIN (>60); Globulin 2.7 g/dL (1.3-3.2); Glucose 120 mg/dl (74-100); Potassium 4.1 mmoL/L (3.5-5.1); Sodium 142 mmol/L (136-145); Total Protein,Serum 5.6 g/dl (6.3-8.2)
[2024-02-02] MEDS: guaiFENesin 600 MG TAB.ER.12H PO (08:58)
[2024-02-02] MEDS: SPIRONOLACTONE 25MG TABLET 50 MG PO (08:58)
[2024-02-02] MEDS: SACUBITRIL/VALSARTAN 24-26MG TABLET 1 EACH PO (08:58)
[2024-02-02] MEDS: FUROSEMIDE 40MG/4ML VIAL 40 MG IV (08:58)
[2024-02-02] MEDS: ASPIRIN EC 81MG TABLET 81 MG PO (08:58)
--- NOTE | 2024-02-02 09:18 | SW/DCPLANNER ---
Addendum entered by Judy Chadwick 02/05/24 14:55: OT stated that patient was safe to return home. Patient discharged prior to PT evaluation. Original Note: I spoke w/ this patient regarding plans once medically stable for discharge. PT/OT has been ordered to evaluate patient today. Patient currently resides at home w/ her daughter, son in law and grandchildren. Patient stated that her and her son in law do not see eye to eye but never any physical harm. Patient has been completing applications for housing in [facility] and [place]. Patient and I discussed discharge options including home w/ home health vs placement. Once PT/OT evaluation is completed I will follow up w/ patient. Discharge date is unknown at this time.
[2024-02-02 09:20] LABS: Basophils % 0.3 % (0.1-2.0); Eosinophils # 0.1 K/mm3 (0.0-0.4); Eosinophils % 0.6 % (0.1-12.0); Hematocrit 34.7 % (37.0-47.0); Lymphocytes # 1.2 K/mm3 (0.7-4.5); Lymphocytes % 9.7 % (10-50); Mean Corpuscular HGB Conc 31.8 g/dL (31.8-35.4); Mean Corpuscular Hemoglobin 27.3 pg (27.0-31.2); Mean Platelet Volume 7.7 fl (7.4-10.4); Monocytes # 0.7 K/mm3 (0.1-1.0); Neutrophils % 83.3 % (37.0-80.0); Platelet Count 312 K/mm3 (142-424); Red Blood Count 4.03 M/mm3 (4.20-5.40); Red Cell Distribution Width 15.5 % (11.5-17.5)
[2024-02-02] MEDS: HEPARIN SODIUM 5,000 UNIT/ML VIAL 5000 UNIT SUBCUT (12:22)
--- NOTE | 2024-02-02 12:37 | HMH.OTEV ---
OT Inpatient Evaluation Rehab OT IP Evaluation Start: 02/02/24 08:35 Freq: ONCE Status: Active Protocol: Document 02/02/24 12:33 KELBYFRANCO (Rec: 02/02/24 12:36 KELBYFRANCO [id number]) Rehab OT IP Assessment Subjective History Eddi Hawkins is a 68-year-old female past medical history significant for COPD, CHF, CAD status post three-vessel bypass, tobacco abuse who presents emergency room tonight with complaints of worsening shortness of breath. Ms. Hawkins she states she has been feeling short of breath for at least a month now. Acutely got worse this afternoon. Is supposed to wear oxygen at home but family states that she put it in the shed outside because she does not want to wear it. Family also reports that she smokes at least 3 packs cigarettes per day. Patient had a three- vessel bypass in March of last year at . Reports she has not followed up with cardiology or her surgeon since then. Denies taking any sort of blood thinners. Has not had an echo done since her surgery. Denies any chest pain with her shortness of breath. No nausea, vomiting, diarrhea. No fever noted, no productive cough noted. Denies abdominal pain, bowel or bladder dysfunction. No recent weight gain or weight loss, no swelling in her legs or feet. Endorses tobacco use . Denies any alcohol or illicit drug use. Lab work in the ER showed an elevated white count of 15,000 , BUN and creatinine elevated at 25 and 1.6. Initial troponin was 0.05, BNP greater than 30,000. UA showed 50- 100 WBCs, 4+ bacteria but was negative for leuks and nitrites. Patient came in extremely tachypneic with SpO2 sats in the 70s. Patient was placed on 4 L nasal cannula, started on a nitroglycerin drip, given 80 of Lasix and DuoNebs. Was also given azithromycin and Rocephin. ER physician did a bedside ultrasound of her heart, showed severe decreased cardiac function. CTA of the chest was negative for PE, did show bilateral moderate size pleural effusions as well as multifocal consolidative opacities bilaterally. She will be admitted to the hospitalist service for multifocal pneumonia as well as CHF exacerbation. Lives at home with family. Independent with ADLs and fx'l mobility prior to hosptialization. Noncompliant with 02 at home. Subjective I can get up. Analysis Patient's ADLs and fx 'l mobility during initial evaluation. Patient completed all tasks independently. No LOB noted. Objective Patient Orientation Person,Name,Age,Year Right Upper Extremity Gross ROM WFL Left Upper Extremity Gross ROM WFL Bed Mobility bed mobility - supine/sit Assist Level Independent Transfer Training Sit/Stand/Pivot Transfer Assist Level Independent Chair Transfer Ability Independent Chair Transfer Technique Sit to/from Ambulatory Chair Transfer Assistive Devices Rolling Walker Lower Body Dressing Ability Independent Rehab OT IP prob,goals,plan Problems Date of Evaluation: 02/02/24 Rehab Potential Rehab Potential Innapropriate for Skilled Therapy Discharge Plan OT Discharge Plan Recommend patient return home with family. d/c after medial d/c. Patient appears to be at baseline. Eval Complexity Eval Charge Codes 38283 - Low Complexity PHYSICIAN CERTIFICATION: I certify the specified therapy services for Eddi Hawkins are required, authorized, and reviewed every 30 days.
[2024-02-02] MEDS: 0.9 % SODIUM CHLORIDE 1000ML 500 ML IV (14:03)
[2024-02-02 15:36] LABS: Albumin Level 3.2 g/dl (3.5-5.0); Chloride 107 mmol/L (98-107); Sodium 139 mmol/L (136-145)
[2024-02-02 15:39] LABS: Alanine Aminotransferase 17 U/L (12-78); Aspartate Amino Transferase 18 U/L (14-36); Blood Urea Nitrogen 44 mg/dl (7-17); Carbon Dioxide 27 mmol/L (22.0-30.0); Creatinine Clearance Estimated 29 mL/min (50-200); Estimated Glomerular Filt Rate 21 ml/min (>60); GFR (African American) 25 ML/MIN (>60)
[2024-02-02 15:40] LABS: Albumin/Globulin Ratio 1.1 (1.1-1.8); Alkaline Phosphatase 89 U/L (38-126); Bilirubin,Total 0.4 mg/dl (0.2-1.3); Calcium 8.4 mg/dl (8.4-10.2); Globulin 2.9 g/dL (1.3-3.2); Glucose 132 mg/dl (74-100); Total Protein,Serum 6.1 g/dl (6.3-8.2)
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
[2024-02-03 03:36] LABS: HCV Ab Non Reactive (Non Reactive)
--- NOTE | 2024-02-06 11:05 | SW/DCPLANNER ---
Phoned patient x2 and each time was unable to leave a message or call back number. 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
== END 2024-02-02 17:30 | disposition home or self-care (01) | DRG 280 ==
LOC: ER 23:16 → 2ND 23:20
PROVIDERS: Nurse Practitioner Acute Care; Physician Assistant; Admitting Provider Student in an Organized Health Care Education/Training Program; Emergency Provider Emergency Medicine; Visit Provider Student in an Organized Health Care Education/Training Program
DX: I21.4 Non-ST elevation (NSTEMI) myocardial infarction (principal); I50.23 Acute on chronic systolic (congestive) heart failure; J96.01 Acute respiratory failure with hypoxia; J18.9 Pneumonia, unspecified organism; J81.1 Chronic pulmonary edema; N17.9 Acute kidney failure, unspecified; J44.0 Chronic obstructive pulmonary disease with (acute) lower respiratory infection; N30.00 Acute cystitis without hematuria; Q61.4 Renal dysplasia; I11.0 Hypertensive heart disease with heart failure; I25.10 Atherosclerotic heart disease of native coronary artery without angina pectoris; Z95.1 Presence of aortocoronary bypass graft; Z72.0 Tobacco use; Z71.6 Tobacco abuse counseling
CPT/HCPCS: 36415; 71275; 80053; 80061; 81001; 82803; 83036; 83605; 83735; 83880; 84439; 84443; 84484; 85007; 85025; 85610; 86803; 87040; 87070; 87086; 87205; 87389; 93005; 93306; 94640; 94761; 97165; 99285; J0360; J0456; J0696; J1100; J1644; J1940; J2405; J7030; J7050; J7620; Q9967

== ENCOUNTER 2024-05-03 10:16 | Outpatient (CLI) | payer MEDICARE, SELFPAY ==
[2024-05-03 18:15] LABS: Basophils # 0.1 K/mm3 (0-0.2); Basophils % 0.5 % (0.1-2.0); Eosinophils # 0.4 K/mm3 (0.0-0.4); Eosinophils % 3.8 % (0.1-12.0); Hematocrit 40.2 % (37.0-47.0); Lymphocytes # 1.2 K/mm3 (0.7-4.5); Lymphocytes % 12.7 % (10-50); Mean Corpuscular HGB Conc 32.3 g/dL (31.8-35.4); Mean Corpuscular Hemoglobin 27.7 pg (27.0-31.2); Mean Corpuscular Volume 85.5 fl (81-99); Mean Platelet Volume 9.8 fl (7.4-10.4); Monocytes # 0.5 K/mm3 (0.1-1.0); Monocytes % 5.6 % (1.7-9.3); Neutrophils # 7.3 K/mm3 (1.8-7.8); Neutrophils % 77.1 % (37.0-80.0); Platelet Count 227 K/mm3 (142-424); Red Cell Distribution Width 15.9 % (11.5-17.5); White Blood Count 9.5 K/mm3 (4.8-10.8)
[2024-05-03 19:16] LABS: Chloride 107 mmol/L (98-107)
[2024-05-03 19:17] LABS: Albumin Level 4.3 g/dl (3.5-5.0); Potassium 4.1 mmoL/L (3.5-5.1); Sodium 141 mmol/L (136-145)
[2024-05-03 19:19] LABS: Alanine Aminotransferase 10 U/L (12-78); Alkaline Phosphatase 88 U/L (38-126); Anion Gap 12.1 mEq/L (5-15); Aspartate Amino Transferase 19 U/L (14-36); Bilirubin,Total 0.5 mg/dl (0.2-1.3); Blood Urea Nitrogen 25 mg/dl (7-17); Carbon Dioxide 26 mmol/L (22.0-30.0); Estimated Glomerular Filt Rate 32 ml/min (>60); GFR (African American) 39 ML/MIN (>60)
[2024-05-03 19:20] LABS: Albumin/Globulin Ratio 1.5 (1.1-1.8); Calcium 9.7 mg/dl (8.4-10.2); Chol/HDL Ratio 4.1 (1-3.5); Cholesterol 217 mg/dl (140-200); Globulin 2.9 g/dL (1.3-3.2); Glucose 86 mg/dl (74-100); HDL Cholesterol 53 mg/dl (40-60); Total Protein,Serum 7.2 g/dl (6.3-8.2); Triglycerides 128 mg/dl (30-150); VLDL Cholesterol 26 mg/dL (0-40)
[2024-05-03 19:34] LABS: Direct LDL Cholesterol 118.51 mg/dL (100-129); Free T4 (Free Thyroxine) 1.49 ng/dl (0.78-2.19)
[2024-05-03 19:51] LABS: Thyroid Stimulating Hormone 0.92 uIU/mL (0.465-4.68)
== END 2024-05-03 23:59 | disposition home or self-care (01) ==
LOC: LAB.DROPOF 05-06 10:17
PROVIDERS: PCP Family Medicine; Visit Provider Family Medicine
DX: E05.90 Thyrotoxicosis, unspecified without thyrotoxic crisis or storm (principal); J43.8 Other emphysema; E78.5 Hyperlipidemia, unspecified
CPT/HCPCS: 80053; 80061; 84439; 84443; 85025

== ENCOUNTER 2024-07-05 16:14 | Outpatient (CLI) | payer MEDICARE, SELFPAY ==
[2024-07-05 16:32] LABS: PHA INR Fingerstick 2.4 (0.9-1.1)
== END 2024-07-05 16:33 ==
LOC: ACC 16:16
PROVIDERS: PCP Nurse Practitioner Family; Visit Provider Physician Assistant
DX: Z79.01 Long term (current) use of anticoagulants (principal); I48.91 Unspecified atrial fibrillation
CPT/HCPCS: 85610; 99211; G0463

== ENCOUNTER 2024-07-12 13:56 | Outpatient (CLI) | payer MEDICARE, SELFPAY ==
[2024-07-12 14:27] LABS: PHA INR Fingerstick 3.2 (0.9-1.1)
== END 2024-07-12 14:29 ==
PROVIDERS: PCP Nurse Practitioner Family; Visit Provider Physician Assistant
DX: Z79.01 Long term (current) use of anticoagulants (principal); I48.91 Unspecified atrial fibrillation
CPT/HCPCS: 85610; 99211; G0463

== ENCOUNTER 2024-07-26 09:38 | Outpatient (CLI) | payer MEDICARE, SELFPAY ==
[2024-07-26 10:23] LABS: PHA INR Fingerstick 1.9 (0.9-1.1)
== END 2024-07-26 10:26 ==
PROVIDERS: PCP Nurse Practitioner Family; Visit Provider Physician Assistant
DX: I48.91 Unspecified atrial fibrillation (principal)
CPT/HCPCS: 85610; 99211; G0463

== ENCOUNTER 2024-07-26 11:30 | Outpatient (CLI) | payer MEDICARE, SELFPAY ==
[2024-07-26 18:26] LABS: Alanine Aminotransferase 13 U/L (12-78); Albumin Level 4.5 g/dl (3.5-5.0); Albumin/Globulin Ratio 1.5 (1.1-1.8); Alkaline Phosphatase 95 U/L (38-126); Anion Gap 12.3 mEq/L (5-15); Aspartate Amino Transferase 22 U/L (14-36); Bilirubin,Total 0.6 mg/dl (0.2-1.3); Blood Urea Nitrogen 41 mg/dl (7-17); Calcium 9.7 mg/dl (8.4-10.2); Carbon Dioxide 24 mmol/L (22.0-30.0); Chloride 107 mmol/L (98-107); Estimated Glomerular Filt Rate 30 ml/min (>60); GFR (African American) 36 ML/MIN (>60); Glucose 87 mg/dl (74-100); Potassium 5.3 mmoL/L (3.5-5.1); Sodium 138 mmol/L (136-145); Total Protein,Serum 7.5 g/dl (6.3-8.2)
== END 2024-07-26 23:59 | disposition home or self-care (01) ==
LOC: LAB.DROPOF 07-30 10:57
PROVIDERS: PCP Nurse Practitioner Family; Visit Provider Family Medicine
DX: I10 Essential (primary) hypertension (principal); I63.9 Cerebral infarction, unspecified; F17.210 Nicotine dependence, cigarettes, uncomplicated
CPT/HCPCS: 80053

== ENCOUNTER 2024-08-13 08:55 | Outpatient (CLI) | payer MEDICARE, SELFPAY ==
--- NOTE | 2024-08-13 | CA_ITS ---
APPROVED REPORT Exam: Pharmacologic Technologist: Kristen Pena Ht: 5 ft 6 in Wt: 170 lbs BSA: 1.87 m2 HR: 76 bpm BP: 169/96 mmHg Rhythm: Sr Medical History Medical History: HTN, Smoking Medications: Albuterol, Aspirin, Atorvastatin, Metoprolol Succinate ER, Spironolactone, Anoro Ellipta, Warfarin Allergies: Lisinopril, Codeine, Morphine Cardiac Risk Factors: HTN, Smoking Stress Test Details Test: Lexiscan HR Resting HR: 76 bpm Max Heart Rate (APMHR): 150.296733 bpm Target HR (85% APMHR): 127.819235 bpm Recovery HR: 89 bpm BP Resting BP: 169.0/96.0 mmHg Max BP: 169.0/96.0 mmHg Recovery BP: 162.0/97.0 mmHg ECG Resting ECG: Sr Stress ECG Conclusion Baseline abnormalities Less than 1mm st depression Ekg unremarkable due to lexiscan infusion Electronically signed by : Chelsie Hutton MD 08/14/2024 13:05:33
--- OUTSIDE RECORDS SUMMARY | 2024-08-13 09:00 | XMS_ITS | Clinical Summary ---
Author Organization [facility] Address [address] [place] [address] Care Team Providers Care Finisher Hand Name Role Phone Meek Lucio PACKAGING OPERATOR Primary Care Provider [phone] Nico Hayward MD Unavailable [phone] Ryan Rice MD Unavailable [phone] Allergies Active Allergy Reactions Criticality Noted Date Comments Codeine Other - please docum ent in the comment field,Unknown - Patient states they do not know rxn details Medium 05/27/2004 hallucinations Codeine Anaphylaxis High 05/15/2024 Lisinopril Cough Low 05/06/2022 Morphine Other - please docum ent in the comment field,Unknown - Patient states they do not know rxn details Medium 11/30/2010 hives Morphine Hallucinations Medium 05/15/2024 Chester Hives Medium 09/09/2019 Medications aspirin 81 MG EC tablet Take 81 mg by mouth 1 (one) time each day. Active acetaminophen (Tylenol) 325 MG tablet Take 2 tablets (650 mg total) by mouth every 6 (six) hours if needed for pain. 100 tablet 3 Active methocarbamol (Robaxin) 500 MG tablet [...] mgOral 2 times daily, Reported on 07/04/2022 Trelegy Ellipta 100-62.5-25 MCG/ACT aerosol powder INHALE 1 PUFF BY MOUTH EVERY DAY FOR copd 3 Active aspirin 81 MG EC tablet Take 1 tablet (81 mg) by mouth daily. Active metoprolol succinate XL (Toprol-XL) 25 MG 24 hr tablet Take 1 tablet (25 mg) by mouth daily. Do not crush or chew. Active albuterol 108 (90 Base) MCG/ACT inhaler Inhale 2 puffs every 4 to 6 hours as needed for wheezing. Active atorvastatin (Lipitor) 80 MG tablet Take 1 tablet (80 mg) by mouth daily. Active furosemide (Lasix) 20 MG tablet Take 1 tablet (20 mg) by mouth in the morning and 1 tablet (20 mg) in the evening. 60 tablet 2 5 08/19/19 25 Active spironolactone (Aldactone) 25 MG tablet Take 1 tablet (25 mg) by mouth daily. 30 each 2 5 08/20/19 25 Active apixaban (Eliquis) 5 MG tablet Take 1 tablet (5 mg) by mouth in the morning and 1 tablet (5 mg) before bedtime. 60 tablet 2 5 08/19/19 25 Active Active Problems Problem Noted Date Diagnosed Date Internal carotid artery stent present 05/17/2024 S/P three vessel coronary artery bypass 05/18/19 25 Aphasia, post-stroke 05/17/2024 Acute ischemic left MCA stroke 05/15/2024 Overview (05/15/2024): Suspected L MCA stroke s/p TNK 05/15 Continue VTE prophylaxis, antithrombotic, and statin as appropriate Repeat CT Head, ECHO & MRI pending Goal SBP<180 NormoNa NIH stroke scale/neurologic examinations per policy PT/OT as appropriate Will continue ongoing stroke education Primary hypertension 05/15/2024 Overview (05/15/2024): SBP goal < 180 PRN hydralazine and labetalol Cardene as necessary Arterial line monitoring Resume home medications as appropriate History of KS (myocardial infarction) 05/15/2024 Overview (05/15/2024): Resume home medications as appropriate History of CVA (cerebrovascular accident) 2024 Overview (05/15/2024): Complicates all aspects of care. Unsure deficits Paroxysmal atrial fibrillation 05/15/2024 Overview (05/15/2024): Rate/rhythm control strategy with beta blockers Thromboembolic risk as assessed by [id number] Anticoagulation plan pending Would keep electrolytes at goal of K >4.0, Ca = 4.5, Mg > 2.0 COPD (chronic obstructive pulmonary disease) 02/2025 Overview (05/15/2024): Wears 5L O2 at home Resume home inhalers JIN (acute kidney injury) 05/15/2024 Overview (05/15/2024): Baseline Cr unknown Creatinine, Plasma (mg/dL) Date/Time Value 05/15/2024 1503 1.30 (H) UA and FENa pending R kidney atrophy on CT 05/15 Consider renal U/S as appropriate Monitor renal function daily Avoid nephrotoxins, avoid NSAIDs, renally dose medications Thyroid nodule 05/15/2024 Overview (05/15/2024): Incidental finding F/u outpatient as needed Bilateral pleural effusion 05/15/2024 Overview (05/15/2024): As evident on CT Chest, concerning for possible CHF Diurese as appropriate - med rec pending ECHO pending Vertebral artery occlusion, right 05/15/2024 Overview (05/15/2024): R vertebral artery occlusion evident on CT See ischemic stroke Other mgmt per primary Lesion of adrenal gland 05/15/2024 Overview (05/15/2024): 2.7 cm lesion of the left adrenal, statistically an adenoma,consider follow-up CT or MR protocoled for evaluation of the adrenals for further characterization. Elevated creatine kinase 05/10/2022 Hypotension 05/05/2022 Carotid [...] 023 Coronary artery disease 03/14/2022 02/0 03/2022 Encounters Date Type Department Care Team Description 08/07/2024 Orders Only [facility] [address] [place] [address] Nannette Leslie JIN (acute kidney injury) ([facility]) (Primary Dx); Vitamin D insufficiency 05/20/2024 Travel 05/16/2024 Travel 05/16/2024 Orders Only [facility] [address] [place] [id number] Rani Albright, PACKAGING OPERATOR 05/15/2024 2:03 PM EDT - 05/20/2024 2:48 PM EDT Hospital Encounter [facility] [address] [place] [id number] Kannan Fontaine, Violeta Wilson MD Sweeney, Michael T, MD O'Connor, Kevin F, MD Assad, Salman, MD Vertebral artery occlusion, right (Primary Dx); Acute ischemic left MCA stroke ([facility]); Aphasia, post-stroke Discharge Disposition: Residential Facility 05/15/2024 Lab Requisition [facility] [address] [place] [id number] Mauro Egan MD Encounter for general adult medical examination without abnormal findings 05/15/2024 Travel from Last 3 Months Immunizations Immunization Administration Dates Next Due Influenza, Unspecified 11/05/2011 [...] drink = 0.6 oz pur e alcohol) Humiliation, Afraid, Rape, and Kick questionnair e Answer Date Recorded Within the last year, have y ou been afraid of your partner or ex-partner? No 05/17/2024 Within the last year, have y ou been humiliated or emotionally abused in other ways by your partner or ex-partner? No Within the last year, have y ou been kicked, hit, slapped, or otherwise physically hurt by your partner or ex-partner? No 05/17/2024 Within the last year, have y ou been raped or forced to have any kind of sexual activity by your partner or ex-partner? No 05/17/2024 Hunger Vital Sign Answer Date Recorded Within the past 12 months, y ou worried that your food would run out before you got the money to buy more. Never true 05/18/19 25 Within the past 12 months, t he food you bought just didn't last and you didn't have money to get more. Never true 05/17/2024 PRAPARE - Transportation Answer Date Re corded In the past 12 months, has l ack of transportation kept you from medical appointments or from getting medications? No 05/04 In the past 12 months, has l ack of transportation kept you from meetings, work, or from getting things needed for daily living? No 05/17/2024 Housing Stability Vital Sign Answer Gordy e Recorded In the last 12 months, was t here a time when you were not able to pay the mortgage or rent on time? No 05/17/2024 In the past 12 months, how m any times have you moved where you were living? 0 05/17/2024 At any time in the past 12 m [facility], were you homeless or living in a senior care (including now)? No 05/17/2024 Utilities Answer Date Recorded In the past 12 months has th e electric, gas, oil, or water company threatened to shut off services in your home? No 05/17/2024 Comments No Sex and Gender Information Value [...] Sign Reading Time Taken Comments Blood Pressure 140/71 05/20/2024 12:25 PM EDT Pulse 65 05/20/2024 12:25 PM EDT Temperature 36.8 C (98.3 F) 05/20/2024 8:00 AM EDT Respiratory Rate 15 05/20/2024 12:2 5 PM EDT Oxygen Saturation 96% 05/20/2024 8:00 AM EDT Inhaled Oxygen Concentration - - Weight 73.9 kg (162 lb 14.7 oz) 05/15/2024 3:04 PM EDT Height 172.7 cm (5' 8 ) 05/15/2024 8:00 PM EDT Body Mass Index 24.77 05/15/2024 3:04 PM EDT Plan of Treatment Upcoming Encounters Date Type Department Care Team (Late st Contact Info) Description 09/27/2024 9:40 AM EDT Office Visit [facility] [address] [place] [address] Gabriella Brand F, PACKAGING OPERATOR [address] [facility] [address] [place] [address] 11/20/2024 4:00 PM EDT Consult [place] [facility] [address] [place] [address] Chris Gramajo MD [address] [place] [address] Health Maintenance Due Date Last Done Comments [facility]-Bone Density Scan 1954 [facility]-Depression Screening 1955 [facility]-Medicare Annual Wellness (AWV) 1955 [facility]-Infant/Child/Adol SDOH Screenings 1954 Diabetes: Dental Exam 1964 CT Colonography 05/25/1999 Colonoscopy 05/25/1999 FIT-DNA 05/25/1999 FIT 05/25/1999 FOBT 05/25/1999 Sigmoidoscopy 05/25/1999 [facility]-Colorectal Cancer Screening 05/25/1999 [facility]-Breast Cancer Screening 2004 [facility]-Zoster Vaccines (1 of 2) 2004 [facility]-DTaP,Tdap,and Td Vaccine s (1 - Tdap) 12/01/2010 11/30/2010 [facility]-Pneumococcal Vaccine: 50 + Years (2 of 2 - PCV) 12/08/2012 12/09/2011 [facility]-RSV Vaccine: 60+ Years o r (1 - Risk 60-74 years 1-dose series) 2014 [id number] Vaccine (1 - season) 2023 [facility]-Influenza Vaccine (Seaso n Ended) 2024 11/05/2011 [facility]-Diabetes: Hemoglobin A1C 11/13/2024, 03/17/2022, 08/01/2019 [facility]- SDOH Screenings 11/17/2024 [facility]-Adult SDOH Screenings 11/17/2024 05/17/2024 [facility]-Lung Cancer Screening 05/15/2025 05/15/2024 [facility]-Hepatitis C Screening Completed 05/15/2024 HPV Vaccines Aged Out No longer eligi ble based on patient's age to complete this topic [facility]-HIB Vaccines Aged Out No longer e [...] this topic Medical Devices Implanted Type Area Pricing Lead Device Identifier Shelf Expiration Date Model / Serial / Lot Screw Screw Foot Description:Right foot; scre ws Procedures Procedure Name Priority Date/Time Associated Diagnosis Comments IONIZED CALCIUM, WHOLE BLOOD Routine 05/20/2024 1:27 AM EDT CBC W/O DIFFERENTIAL Routine 05/20/2024 1:27 AM EDT PHOSPHORUS, PLASMA Routine 05/20/2024 1: 27 AM EDT MAGNESIUM, PLASMA Routine 05/20/2024 1:2 7 AM EDT BASIC METABOLIC PANEL, PLASMA Routine 05/20/2024 1:27 AM EDT OXYGEN THERAPY STAT 05/19/2024 8:00 AM EDT ECG ADULT STAT 05/19/2024 7:44 AM EDT IONIZED CALCIUM, WHOLE BLOOD Routine 05/19/2024 4:44 AM EDT CBC W/O DIFFERENTIAL Routine 05/19/2024 4:44 AM EDT PHOSPHORUS, PLASMA Routine 05/19/2024 4: 44 AM EDT MAGNESIUM, PLASMA Routine 05/19/2024 4:4 4 AM EDT BASIC METABOLIC PANEL, PLASMA Routine 05/19/2024 4:44 AM EDT OXYGEN THERAPY STAT 05/18/2024 8:00 PM EDT OXYGEN THERAPY STAT 05/18/2024 8:00 AM EDT IONIZED CALCIUM, WHOLE BLOOD Routine 05/18/2024 6:21 AM EDT CBC W/O DIFFERENTIAL Routine 05/18/2024 6:21 AM EDT PHOSPHORUS, PLASMA Routine 05/18/2024 6: 21 AM EDT MAGNESIUM, PLASMA Routine 05/18/2024 6:2 1 AM EDT BASIC METABOLIC PANEL, PLASMA Routine 05/18/2024 6:21 AM EDT OXYGEN THERAPY STAT 05/17/2024 8:00 PM EDT OXYGEN THERAPY STAT 05/17/2024 8:00 AM EDT IONIZED CALCIUM, WHOLE BLOOD Routine 05/17/2024 4:53 AM EDT CBC W/O DIFFERENTIAL Routine 05/17/2024 4:53 AM EDT PHOSPHORUS, PLASMA Routine 05/17/2024 4: 53 AM EDT MAGNESIUM, PLASMA Routine 05/17/2024 4:5 3 AM EDT BASIC METABOLIC PANEL, PLASMA Routine 05/17/2024 4:53 AM EDT OXYGEN THERAPY STAT 05/16/2024 8:00 PM EDT ECHO, ADULT TRANSTHORACIC COMPLETE W/ CONTRAST Routine 05/16/2024 3:[address] HEAD WO IV CONTRAST Timed 3:46 PM EDT N-TERMINAL PROBNP, PLASMA Routine 05/16/2024 10:27 AM EDT HI CRITICAL CARE, E/M 30-74 MINUTES Routine 05/16/2024 9:17 AM EDT Acute ischemic left MCA stroke ([facility]) OXYGEN THERAPY STAT 05/16/2024 8:00 AM EDT MR HEAD WO IV CONTRAST Routine 3:28 AM EDT TROPONIN T, HIGH SENSITIVITY, 2 HOUR, PLASMA Timed 05/16/2024 2:07 AM EDT IONIZED CALCIUM, WHOLE BLOOD Routine 05/16/2024 2:07 AM EDT CBC W/O DIFFERENTIAL Routine 05/16/2024 2:07 AM EDT PHOSPHORUS, PLASMA Routine 05/16/2024 2: 07 AM EDT MAGNESIUM, PLASMA Routine 05/16/2024 2:0 7 AM EDT BASIC METABOLIC PANEL, PLASMA Routine 05/16/2024 2:07 AM EDT TSH Routine 05/16/2024 2:07 AM EDT HEMOGLOBIN A1C Routine 05/16/2024 2:07 AM EDT LIPID PROFILE, PLASMA Routine 05/16/2024 2:07 AM EDT URINALYSIS MICROSCOPIC FOR UA REFLEX Routine 05/16/2024 12:39 AM EDT DRUG ABUSE SCREEN, URINE Routine 05/16/2024 12:39 AM EDT URINALYSIS WITH REFLEX MICROSCOPIC Routine 05/16/2024 12:39 AM EDT CREATININE, RANDOM URINE Routine 05/16/2024 12:39 AM EDT SODIUM, URINE, RANDOM Routine 05/16/2024 12:39 AM EDT TROPONIN T, HIGH SENSITIVITY, 0 HOUR, PLASMA, REFLEX TO 2 HOUR STAT 05/16/2024 12:01 AM EDT XR ABDOMEN 1 VIEW Routine 05/15/2024 9:0 5 PM EDT OXYGEN THERAPY STAT 05/15/2024 8:00 PM EDT TROPONIN T, HIGH SENSITIVITY, 2 HOUR, PLASMA Timed 05/15/2024 7:29 PM EDT ETTA AURIS SURVEILLANCE BY PCR Routine 05/15/2024 5:30 PM EDT Encounter for general adult medical examination without abnormal findings MULTI DRUG RESISTANCE TEST Routine 05/15/2024 5:30 PM EDT EXTRA TUBE LIGHT GREEN TOP Routine 05/15/2024 5:15 PM EDT EXTRA TUBES Routine 05/15/2024 5:15 PM EDT MAGNESIUM, PLASMA Routine 05/15/2024 5:1 5 PM EDT RENAL FUNCTION PANEL, PLASMA Routine 05/15/2024 5:15 PM EDT TROPONIN T, HIGH SENSITIVITY, 0 HOUR, PLASMA, REFLEX TO 2 HOUR STAT 05/15/2024 5:15 PM EDT ANTI XA LEVEL UNFRACTIONATED HEPARIN STAT 05/15/2024 5:15 PM EDT HI CRITICAL CARE, E/M 30-74 MINUTES Routine 05/15/2024 4:39 PM EDT Vertebral artery occlusion, right Acute ischemic left MCA stroke (CMS/HCC) ED HIV 1/2 ANTIBODY/ANTIGEN SCREEN WITH REFLEX TO HIV I/II DIFFERENTIATION STAT 05/15/2024 3:03 PM EDT ED PROTOCOL HIV 1/2 ANTIBODY/ANTIGEN SCREEN W/REFLEX TO HIV 1/2 ANTIBODY DIFFERENTIATION STAT 05/15/2024 3:03 PM EDT HEPATITIS C ANTIBODY - ED W/REFLEX TO HCV QUANT PCR STAT 05/15/2024 3:03 PM EDT TEST QUALITATIVE PLASMA STAT 05/15/2024 3:03 PM EDT COMPREHENSIVE METABOLIC PANEL, PLASMA STAT 05/15/2024 3:03 PM EDT APTT STAT 05/15/2024 3:03 PM EDT PROTHROMBIN TIME(PT) / INR STAT 05/15/2024 3:03 PM EDT CBC WITH AUTO DIFFERENTIAL STAT 05/15/2024 3:03 PM EDT ECG ADULT STAT 05/15/2024 2:[address] CHEST W IV CONTRAST STAT 2:[address] ANGIO NECK STAT 05/15/2024 2:[address] ANGIO HEAD STAT 05/15/2024 2:[address] HEAD WO IV CONTRAST STAT 2:29 PM EDT OXYGEN THERAPY STAT 05/15/2024 2:23 PM EDT OXYGEN THERAPY STAT 05/15/2024 2:23 PM EDT OXYGEN THERAPY STAT 05/15/2024 2:23 PM EDT POCT GLUCOSE METER UNSOLICITED RESULTS Routine 05/15/2024 2:22 PM EDT from Last 3 Months Results * Ionized calcium, whole blood (05/20/2024 1:27 AM EDT) Only the most recent of5 resultswithin the time period is included. Pathologist [facility] Ionized Calcium, Whole Blood 4.9 4.6 - 5.1 mg/dL LAB HEMATOLOGY METHOD 05/20/2024 1:34 AM EDT [facility] Blood Venous blood specimen / Unknown Venipuncture / Unknown 05/20/2024 1:27 AM EDT 05/20/2024 1:33 AM EDT Alka Sanders APRN LAB BLOOD ORDERABLES Final Result [facility] [address] [place] [address] * CBC W/O Differential (05/20/2024 1:27 AM EDT) Only the most recent of5 resultswithin the time period is included. WBC Count 6.93 3.70 - 10.30 10*3/uL LAB HEMATOLOGY METHOD 05/20/2024 1:41 AM EDT [facility] RBC Count 4.34 3.90 - 5.20 10*6/uL LAB HEMATOLOGY METHOD 05/20/2024 1:41 AM EDT [facility] HGB 12.2 11.2 - 15.7 g/dL LAB HEMATOLOGY METHOD 05/20/2024 1:41 AM EDT [facility] HCT 37.3 34.0 - 45.0 % LAB HEMATOLOGY METHOD 05/20/2024 1:41 AM EDT [facility] Platelet Count 187 155 - 369 10*3/uL LAB HEMATOLOGY METHOD 05/20/2024 1:41 AM EDT [facility] MCV 86 79 - 98 fL LAB HEMATOLOGY METHOD 05/20/2024 1:41 AM EDT [facility] MCH 28.1 26.0 - 32.0 pg LAB HEMATOLOGY METHOD 05/20/2024 1:41 AM EDT [facility] MCHC 32.7 30.7 - 35.5 g/dL LAB HEMATOLOGY METHOD 05/20/2024 1:41 AM EDT [facility] RDW 13.9 11.5 - 14.5 % LAB HEMATOLOGY METHOD 05/20/2024 1:41 AM EDT [facility] MPV 9.4 8.8 - 12.5 fL LAB HEMATOLOGY METHOD 05/20/2024 1:41 AM EDT [facility] nRBC 0.0 <=0.0 per 100 WBCs LAB HEMATOLOGY METHOD 05/20/2024 1:41 AM EDT [facility] Blood Venous blood specimen / Unknown Venipuncture / Unknown 05/20/2024 1:27 AM EDT 05/20/2024 1:35 AM EDT Alka Sanders PACKAGING OPERATOR LAB BLOOD ORDERABLES Final Result [facility] [address] [place] [address] * Phosphorus, Plasma (05/20/2024 1:27 AM EDT) Only the most recent of5 resultswithin the time period is included. Phosphorus, Plasma 3.8 2.5 - 4.5 mg/dL 05/20/2024 2:05 AM EDT [facility] Blood Venous blood specimen / Unknown Venipuncture / Unknown 05/20/2024 1:27 AM EDT 05/20/2024 1:35 AM EDT us Alka Sanders PACKAGING OPERATOR LAB BLOOD ORDERABLES Final Result Performing Organization Address City/[facility] Co de Phone Number [facility] [address] [place] [address] * Magnesium, Plasma (05/20/2024 1:27 AM EDT) Only the most recent of6 resultswithin the time period is included. Magnesium, Plasma 2.2 1.9 - 2.4 mg/dL 05/20/2024 2:05 AM EDT [facility] Blood Venous blood specimen / Unknown Venipuncture / Unknown 05/20/2024 1:27 AM EDT 05/20/2024 1:35 AM EDT Alka Sanders PACKAGING OPERATOR LAB BLOOD ORDERABLES Final Result Performing Organization Address [facility] de Phone Number [facility] [address] [place] [address] * (ABNORMAL) Basic Metabolic Panel, Plasma (05/20/2024 1:27 AM EDT) Only the most recent of5 resultswithin the time period is included. Glucose, Plasma 94 74 - 99 mg/dL 05/20/2024 2:05 AM EDT [facility] BUN, Plasma 31(H) 8 - 23 mg/dL 05/20/2024 2:05 AM EDT [facility] Creatinine, Plasma 1.48(H) 0.60 - 1.10 mg/dL 05/20/2024 2:05 AM EDT [facility] BUN/Creatinine Ratio 21 05/20/2024 2:05 AM EDT [facility] Sodium, Plasma 141 136 - 145 mmol/L 05/20/2024 2:05 AM EDT [facility] Potassium, Plasma 4.5 3.6 - 4.9 mmol/L 05/20/2024 2:05 AM EDT [facility] Chloride, Plasma 106 97 - 107 mmol/L 05/20/2024 2:05 AM EDT [facility] CO2, Plasma 25 22 - 29 mmol/L 05/20/2024 2:05 AM EDT [facility] Anion Gap 10 6 - 16 mmol/L 05/20/2024 2:05 AM EDT [facility] Total Calcium, Plasma 9.5 8.9 - 10.2 mg/dL 05/20/2024 2:05 AM EDT [facility] eGFRcr 38.2 mL/min/1.7 3m*2 05/20/2024 2:05 AM EDT [facility] Comment:Reported eGFRcr in m L/min/1.73m2 is based the CKD-EPI 2020 equation that does not use a race coefficient. Blood Venous blood specimen / Unknown Venipuncture / Unknown 05/20/2024 1:27 AM EDT 05/20/2024 1:35 AM EDT Alka Sanders APRN LAB BLOOD ORDERABLES Final Result [facility] [address] [place] [address] * ECG Adult (05/19/2024 7:44 AM EDT) Only the most recent of2 resultswithin the time period is included. EKG DIAGNOSIS CLASS Abnormal MUSE ECG Ventricular Rate 68 BPM MUSE ECG Atrial Rate 68 BPM MUSE ECG HI Interval 156 ms MUSE ECG QRSD Interval 102 ms MUSE ECG QT Interval 462 ms MUSE ECG QTC Interval 491 ms MUSE ECG P [place] 47 degrees MUSE ECG R [place] 2 degrees MUSE ECG T Wave [place] 102 degrees MUSE ECG Diagnosis Normal sinus rhythm MUSE ECG Diagnosis Possible Left atrial enlargement MUSE ECG Diagnosis Minimal voltage criteria for LVH, may be normal variant ( Fracisco product ) with repolarization abnormality MUSE ECG Diagnosis Prolonged QT MUSE ECG Diagnosis Abnormal ECG MUSE ECG Diagnosis MUSE ECG Diagnosis Confirmed by Troy Michaud ([id number]) on 05/21/2024 10:53:58 AM MUSE ECG 05/19/2024 7:44 AM EDT 05/21/2024 10:53 AM EDT us Jose Eden MD ECG ORDERABLES Final Result [facility] ECG * ECHO, ADULT TRANSTHORACIC COMPLETE W/ CONTRAST (05/16/2024 3:51 PM EDT) Height 172.7 SOWMYA ISCV Weight 73.5 SOWMYA ISCV BSA 1.87 m2 SOWMYA ISCV LVOT diam 20 mm SOWMYA ISCV LVOT AREA 3.1 cm2 SOWMYA ISCV LV V1 VTI 16.7 cm SOWMYA ISCV SV(LVOT) 52 mL SOWMYA ISCV MV E Vmax 103.0 cm/s SOWMYA ISCV MV A Vmax 106.0 cm/s SOWMYA ISCV MV E/A 1.0 cm/s SOWMYA ISCV TR Vmax 124.0 cm/s SOWMYA ISCV RV base 41 mm SOWMYA ISCV RV s' Isaias 6.8 cm/s SOWMYA ISCV TAPSE 18 mm SOWMYA ISCV TR Max PG 6 mmHG SOWMYA ISCV LV V1 Vmax 105.0 cm/s SOWMYA ISCV Ao V2 VTI 27.2 cm SOWMYA ISCV Ao mean PG 6 mmHg SOWMYA ISCV Ao V2 Vmax 164.0 cm/s SOWMYA ISCV Ao max PG 11 mmHg SOWMYA ISCV AV VTI Index 0.61 SOWMYA ISCV RYLIE(I,D) 1.9 cm2 SOWMYA ISCV RYLIE(VTI)/BSA_ph l 1.0 cm2/m2 SOWMYA ISCV MR Vmax 257.0 cm/s SOWMYA ISCV MR max PG 26 mmHG SOWMYA ISCV MV dec time 140 ms SOWMYA ISCV MV P1/2t 41 ms SOWMYA ISCV MVA(P1/2t) 5.4 cm2 SOWMYA ISCV Asc Ao Diam 33 mm SOWMYA ISCV LV mean PG 2.0 mmHG SOWMYA ISCV LV V1 mean 66.3 cm/sec SOWMYA ISCV LV max PG 4.4 mmHg SOWMYA ISCV MV Prop V 9.2 cm/s SOWMYA ISCV AV-pr VR 0.6 SOWMYA ISCV Ao V2 mean 110.0 cm/s SOWMYA ISCV LV EDV(MOD-4ch) 212 mL SOWMYA ISCV LV ESV(MOD4ch) 149 mL SOWMYA ISCV EF(MOD-sp4) 30 % SOWMYA ISCV LV EDV(MOD-2ch) 250 mL SOWMYA ISCV LV ESV(MOD2ch) 156 mL SOWMYA ISCV EF(MOD-sp2) 38 % SOWMYA ISCV EDV(MOD-bp) 231 mL SOWMYA ISCV ESV(MOD-bp) 153 mL SOWMYA ISCV EF(MOD-bp) 34 % SOWMYA ISCV LV Lat e' Velocity 6.7 cm/s SOWMYA ISCV LV Sept e' Isaias 4.6 cm/s SOWMYA ISCV Lat E/e' 15.4 SOWMYA ISCV Sep E/e' 22.4 SOWMYA ISCV Avg E/e' 18.9 SOWMYA ISCV Anatomical Region Laterality Modality Echocardiography Narrative 05/16/2024 4:06 PM EDT Left Ventricle: The left ventricle is moderately dilated. The left ventricular systolic function is moderately reduced. The LVEF is visually estimated at 30 - 40%. The left ventricular filling pressure is elevated. There is global hypokinesis of the left ventricle. The inferolateral and inferior swanson are akinetic. Right Ventricle: The right ventricle is normal in size. The right ventricular systolic function is grossly normal. Pericardium: No pericardial effusion. Left Atrium: The interatrial septum is intact with no evidence for an atrial septal defect. Intravenous injection of agitated saline demonstrates no evidence of intracardiac or intrapulmonary shunt. There is no atrial septal defect. Left Ventricle The left ventricle is moderately dilated. The left ventricular systolic function is moderately reduced. The LVEF is visually estimated at 30 - 40%. The left ventricular filling pressure is elevated. There is global hypokinesis of the left ventricle. The inferolateral and inferior swanson are akinetic. Right Ventricle The right ventricle is normal in size. The right ventricular systolic function is grossly normal. Right ventricular systolic pressure is normal (<35mmHg). Left Atrium The left atrial size is normal with an indexed volume of 16-34 mL/m2. The interatrial septum is intact with no evidence for an atrial septal defect. Intravenous injection of agitated saline demonstrates no evidence of intracardiac or intrapulmonary shunt. There is no atrial septal defect. Right Atrium The right atrial size is normal. IVC/SVC Based on the IVC size and respiratory variation, the estimated right atrial pressure is 3mmHg. Mitral Valve The mitral valve leaflets are normal in appearance with no evidence of mitral valve prolapse. There is mild mitral annular calcification. There is trace mitral regurgitation. There is no mitral stenosis. Tricuspid Valve The tricuspid valve is normal in appearance. There is no tricuspid regurgitation. There is no tricuspid stenosis. Aortic Valve The aortic valve appears to be trileaflet. There is no valvular regurgitation. There is no hemodynamically significant valvular aortic stenosis. Pulmonic Valve The pulmonic valve is normal in appearance. There is no pulmonic regurgitation. There is no pulmonic stenosis. Pericardium No pericardial effusion. Great Vessels The aortic root is normal in size. In the maximally visualized portion, the ascending aorta appears normal in size. The main pulmonary artery is normal in size. Study Details A complete transthoracic echocardiogram using two-dimensional (2D), m-mode, color and spectral flow Doppler imaging was performed. Definity and Saline (bubble) contrast was used during the study. The study was technically difficult. The study was technically difficult due to patient's body habitus. Height: 172.7 cm. Weight: 73.5 kg. BSA: 1.87 m2. Study Recommendation There is no recent study available for direct [id number] comparison. us Violeta Monzon MD CV ECHO PROCEDURES Final R esult * CT HEAD WO IV CONTRAST - 24 Hour Post Thrombolytic Agent (05/16/2024 3:46 PM EDT) Only the most recent of2 resultswithin the time period is included. Anatomical Region Laterality Modality Head Computed Tomogra phy Impressions 05/16/2024 4:21 PM EDT Subtle maturing acute infarct in the left precentral and postcentral gyri, better seen on MRI. No hemorrhage. CRITICAL RESULT: No. COMMUNICATION: Per this written report. Drafted by Lorraine Argueta MD on 05/16/2024 4:18 PM Final report signed by Lorraine Argueta MD on 05/16/2024 4:21 PM Narrative 05/16/2024 4:21 PM EDT CLINICAL INDICATION: Stroke, follow up; 24 hour post thrombolytic agent bolus TECHNIQUE: Spiral axial CT images of the head were obtained without contrast administration. Total DLP (Dose-Length Product): 874.64 mGy.cm. Please note: The reported value represents the total of one or more individual components during the CT acquisition on this date and at this time, and as such, the same value may appear in more than one CT report depending on the interpreting/reporting physicians. COMPARISON: Brain MRI performed [address] 05/15/2024 FINDINGS: Diagnostic Quality: Adequate. Subtle cytotoxic edema in the left precentral and postcentral gyri (series 2 images 23-25) is consistent with known acute infarct better seen on recent MRI. Advanced chronic small vessel ischemic disease is present in the cerebral white matter. There is no new acute infarct, acute hemorrhage, midline shift, hydrocephalus, or extra-axial fluid collection. Basal cisterns are patent. Soft Tissues: No significant soft tissue swelling is present. Skull: There are no calvarial destructive lesions or fractures. Sinuses and Mastoids: The visualized portions of the paranasal sinuses are clear. The mastoid air cells are clear. Procedure Note Lorraine Argueta MD - 05/16/2024 CLINICAL INDICATION: Stroke, follow up; 24 hour post thrombolytic agent bolus TECHNIQUE: Spiral axial CT images of the head were obtained without contrastadministration. Total DLP (Dose-Length Product): 874.64 mGy.cm. Please note: The reportedvalue represents the total of one or more individual components during theCT acquisition on this date and at this time, and as such, the same valuemay appear in more than one CT report depending on theinterpreting/reporting physicians. COMPARISON: Brain MRI performed [address] 05/15/2024 FINDINGS: Diagnostic Quality: Adequate. Subtle cytotoxic edema in the left precentral and postcentral gyri (series2 images 23-25) is consistent with known acute infarct better seen onrecent MRI. Advanced chronic small vessel ischemic disease is present inthe cerebral white matter. There is no new acute infarct, acutehemorrhage, midline shift, hydrocephalus, or extra-axial fluid collection.Basal cisterns are patent. Soft Tissues: No significant soft tissue swelling is present. Skull: There are no calvarial destructive lesions or fractures. Sinuses and Mastoids: The visualized portions of the paranasal sinuses areclear. The mastoid air cells are clear. IMPRESSION: Subtle maturing acute infarct in the left precentral and postcentral gyri,better seen on MRI. No hemorrhage. CRITICAL RESULT: No. COMMUNICATION: Per this written report. Drafted by Lorraine Argueta MD on 05/16/2024 4:18 PM Final report signed by Lorraien Argueta MD on 05/16/2024 4:21 PM Violeta Monzon MD IMG CT PROCEDURES Final Re sult * (ABNORMAL) N-Terminal Probnp (05/16/2024 10:27 AM EDT) N-Terminal, PROBNP, Plasma 10,224(H) 0 - 899 pg/mL 05/16/2024 11:26 AM EDT [facility] Blood Venous blood specimen / Unknown Venipuncture / Unknown 05/16/2024 10:27 AM EDT 05/16/2024 10:48 AM EDT Violeta Monzon MD LAB BLOOD ORDERABLES Final Result Performing Organization Address City/State/[facility] Co de Phone Number [facility] [address] [place] [address] * HI CRITICAL CARE, E/M 30-74 MINUTES (05/16/2024 9:17 AM EDT) Narrative Rani Albright APRN - 05/16/2024 9:17 AM EDT Rani Albright APRN 05/16/2024 9:19 AM Critical Care Performed by: Rani Albright APRN Authorized by: Rani Albright APRN Critical care provider statement: Critical care time (minutes): 38 Critical care was time spent personally by me on the following activities: Development of treatment plan with patient or surrogate, discussions with consultants, evaluation of patient's response to treatment, examination of patient, ordering and review of laboratory studies, ordering and review of radiographic studies, discussions with primary provider, obtaining history from patient or surrogate and ordering and performing treatments and interventions us Rani Albright APRN IN CLINIC/BEDSIDE ORDERABLES Final Result * MR Head wo IV Contrast (05/16/2024 3:28 AM EDT) Anatomical Region Laterality Modality Head Magnetic Resonan ce Impressions 05/16/2024 10:31 AM EDT 1. Focal area of acute ischemic injury involving the right lateral frontal lobe with a few foci of susceptibility artifact within, possibly representing a small amount of petechial hemorrhage. Continued attention on follow-up imaging is recommended. 2. Mild diffuse parenchymal volume loss with confluent areas of signal abnormality in the white matter of cerebral hemispheres and the brainstem possibly representing sequelae of chronic microvascular ischemia. CRITICAL RESULT: No. COMMUNICATION: Per this written report. Drafted by Latrice Beckham MD on 05/16/2024 10:13 AM Final report signed by Latrice Beckham MD on 05/16/2024 10:31 AM Narrative 05/16/2024 10:31 AM EDT CLINICAL INDICATION: Stroke, follow up TECHNIQUE: Multiplanar multiecho sequences were performed through the brain utilizing T1 and T2 weighting, as well as either axial susceptibility weighted or gradient echo sequences, and axial diffusion weighted images. Imaging was performed without contrast administration. COMPARISON: CT head dated 05/15/2024 FINDINGS: Diagnostic Quality: The images are somewhat degraded due to motion artifact. There are focal areas of diffusion restriction involving the right lateral frontal lobe bilaterally with acute infarcts. There are a few foci of susceptibility artifact within which could represent a small amount of petechial hemorrhage (series 11, image 40). No parenchymal hematoma is seen. There is a background of mild diffuse parenchymal volume loss, likely age- related with confluent areas of T2 and FLAIR hyperintense signal in the white matter of cerebral hemispheres, and the midbrain and ioana which could represent sequelae of chronic small vessel ischemic disease or chronic hypertension, given the patient's age. There are sequelae of remote ischemic injury in bilateral basal ganglia and the left cerebellum. There is mild ex vacuo prominence of the sulcal spaces and the ventricular system. The basal cisterns are within normal limits. No abnormal extra-axial fluid collection is seen. Vascular Flow Voids: Normal. Paranasal Sinuses and Mastoid Air Cells: There is a mucous retention cyst/polyp in one of the left-sided ethmoid air cells (series 6, image 18). The rest of the paranasal sinuses are clear. Bilateral mastoid air cells are clear. Orbits: No definite masses within the limitations of the study. Extracranial Findings: None. Craniocervical Junction and Skull Base: No tonsillar ectopia or mass is present. Procedure Note Latrice Beckham MD - 05/16/2024 CLINICAL INDICATION: Stroke, follow up TECHNIQUE: Multiplanar multiecho sequences were performed through the brain utilizingT1 and T2 weighting, as well as either axial susceptibility weighted orgradient echo sequences, and axial diffusion weighted images. Imaging wasperformed without contrast administration. COMPARISON: CT head dated 05/15/2024 FINDINGS: Diagnostic Quality: The images are somewhat degraded due to motionartifact. There are focal areas of diffusion restriction involving the right lateralfrontal lobe bilaterally with acute infarcts. There are a few foci ofsusceptibility artifact within which could represent a small amount ofpetechial hemorrhage (series 11, image 40). No parenchymal hematoma isseen. There is a background of mild diffuse parenchymal volume loss, likelyage-related with confluent areas of T2 and FLAIR hyperintense signal inthe white matter of cerebral hemispheres, and the midbrain and ioana whichcould represent sequelae of chronic small vessel ischemic disease orchronic hypertension, given the patient's age. There are sequelae ofremote ischemic injury in bilateral basal ganglia and the leftcerebellum. There is mild ex vacuo prominence of the sulcal spaces and the ventricularsystem. The basal cisterns are within normal limits. No abnormalextra-axial fluid collection is seen. Vascular Flow Voids: Normal. Paranasal Sinuses and Mastoid Air Cells: There is a mucous retentioncyst/polyp in one of the left-sided ethmoid air cells (series 6, image18). The rest of the paranasal sinuses are clear. Bilateral mastoid aircells are clear. Orbits: No definite masses within the limitations of the study. Extracranial Findings: None. Craniocervical Junction and Skull Base: No tonsillar ectopia or mass ispresent. IMPRESSION: 1. Focal area of acute ischemic injury involving the right lateral frontallobe with a few foci of susceptibility artifact within, possiblyrepresenting a small amount of petechial hemorrhage. Continued attentionon follow-up imaging is recommended. 2. Mild diffuse parenchymal volume loss with confluent areas of signalabnormality in the white matter of cerebral hemispheres and the brainstempossibly representing sequelae of chronic microvascular ischemia. CRITICAL RESULT: No. COMMUNICATION: Per this written report. Drafted by Latrice Beckham MD on 05/16/2024 10:13 AM Final report signed by Latrice Beckham MD on 05/16/2024 10:31 AM Violeta Monzon MD IMG MRI PROCEDURES Final R esult * (ABNORMAL) Troponin T, High Sensitivity, 2 Hour, Plasma (05/16/2024 2:07 AM EDT) Only the most recent of2 resultswithin the time period is included. Troponin T, High Sensitivity, 2 Hour 51(H) <14 ng/L 05/16/2024 2:42 AM EDT [facility] Troponin Delta 3 <10 ng/L 05/16/2024 2:42 AM EDT [facility] Troponin Delta Interpretation Not Significant 05/16/2024 2:42 AM EDT [facility] Comment:Not Significant. No acute change in troponin observed between the baseline and 2 hour samples. Blood Venous blood specimen / Unknown Venipuncture / Unknown 05/16/2024 2:07 AM EDT 05/16/2024 2:15 AM EDT Gloria Leroy APRN, RAJESH LAB BLOOD ORDERABLES Fi nal Result [facility] [address] [place] [address] * TSH (05/16/2024 2:07 AM EDT) [facility] Thyroid Stimulating Hormone, Plasma 1.69 0.40 - 4.20 uIU/mL 05/16/2024 2:[address] [facility] Blood Venous blood specimen / Unknown Venipuncture / Unknown 05/16/2024 2:07 AM EDT 05/16/2024 2:15 AM EDT Violeta Monzon MD LAB BLOOD ORDERABLES Final Result [facility] [address] [place] [address] * Hemoglobin A1c (05/16/2024 2:07 AM EDT) Hemoglobin A1c 4.5 <5.7 % 05/16/2024 2:38 AM EDT [facility] Blood Venous blood specimen / Unknown Venipuncture / Unknown 05/16/2024 2:07 AM EDT 05/16/2024 2:15 AM EDT Narrative [facility] - 05/16/2024 2:38 AM EDT HA1C Interpretive Data: Diagnosis of Diabetes: Diabetic > or = 6.5% Pre-diabetic 5.7 to 6.4% Non-diabetic < or = 5.6% Glycemic Targets for Type I and Type II Diabetics: Non- Adults <7.0% Adults <6.0% Children and Adolescents <7.5% Source: [place] [employer]. Standards of medical care in diabetes,2017. Diabetes Care.2017:40 (suppl 1):S1-S135. HbA1c assay performed by an ion-exchange chromatography method that is certified traceable to the DCCT. Violeta Monzon MD LAB BLOOD ORDERABLES Final Result [facility] [address] [place] [address] * (ABNORMAL) Lipid panel (05/16/2024 2:07 AM EDT) Cholesterol, Plasma 162 <200 mg/dL 05/16/2024 2:51 AM EDT [facility] Comment: Cholesterol Reference Range (age >17 years): Desirable <200 mg/dL Borderline 200 to 239 mg/dL Undesirable >239 mg/dL HDL 44(L) >=50 mg/dL 05/16/2024 2:51 AM EDT [facility] Comment: HDL Cholesterol Reference Ranges (age >17 years): Female, acceptable > or = 50 mg/dL Male, acceptable > or = 40 mg/dL Triglycerides, Plasma 99 <150 mg/dL 05/16/2024 2:51 AM EDT [facility] Comment: Triglyceride Reference Range (age >17 years): Desirable: <150 mg/dL Borderline high: 150 to 199 mg/dL High: 200 to 499 mg/dL Very high: >499 mg/dL Increased risk of pancreatitis: >1000 mg/dL Cholesterol/HDL Ratio 4 05/16/2024 2:51 AM EDT [facility] LDL, Calculated 100(H) <100 mg/dL 2:51 AM EDT [facility] Comment: LDL Cholesterol Reference Range (age >17 years): Optimal: <100 mg/dL Near or above optimal: 100 - 129 mg/dL Borderline high: 130 - 159 mg/dL High: 160 - 189 mg/dL Very high: >189 mg/dL LDL Cholesterol Reference Range (age <18 years): Desirable: <110 mg/dL Borderline: 110 - 129 mg/dL Undesirable: >130 mg/dL LDL Cholesterol is calculated using the Hagan/NIH equation. Fasting greater than or equal to 12 hours? Unknown 05/16/2024 2:51 AM EDT [facility] Comment:NPO since admission, LKW [id number] Blood Venous blood specimen / Unknown Venipuncture / Unknown 05/16/2024 2:07 AM EDT 05/16/2024 2:15 AM EDT us Violeta Monzon MD LAB BLOOD ORDERABLES Final Result Performing Organization Address City/[facility]/ZIP Co de Phone Number [facility] [address] [place] [address] * Urinalysis Microscopic Examination (05/16/2024 12:39 AM EDT) Urine Urine specimen obtained by clean catch procedure / Unknown Non-blood Collection / Unknown 05/16/2024 12:39 AM EDT 05/16/2024 12:57 AM EDT us Alka Sanders APRN LAB URINE ORDERABLES Final Result Performing Organization Address City/[facility]/ZIP Co de Phone Number [facility] [address] [place] [address] * Drug Abuse Screen Urine (05/16/2024 12:39 AM EDT) Amphetamine Screen Urine Negative Cutoff: 500 ng/mL 05/16/2024 2:30 AM EDT [facility] Benzodiazepines Screen Urine Negative Cutoff: 200 ng/mL 05/16/2024 2:30 AM EDT [facility] Cannabinoid Screen Urine Negative Cutoff: 50 ng/mL 05/16/2024 2:30 AM EDT [facility] Cocaine Screen Urine Negative Cutoff: 300 ng/mL 05/16/2024 2:30 AM EDT [facility] Barbiturate Screen Urine Negative Cutoff: 200 ng/mL 05/16/2024 2:30 AM EDT [facility] Opiate Screen Urine Negative Cutoff: 300 ng/mL 05/16/2024 2:30 AM EDT [facility] Methadone Screen Urine Negative Cutoff: 300 ng/mL 05/16/2024 2:30 AM EDT [facility] Buprenorphine Screen Urine Negative Cutoff: 10 ng/mL 05/16/2024 2:30 AM EDT [facility] Fentanyl Screen Urine Negative Cutoff: 1 ng/mL 05/16/2024 2:30 AM EDT [facility] Oxycodone Screen Urine Negative Cutoff: 100 ng/mL 05/16/2024 2:30 AM EDT [facility] Urine Urine specimen obtained by clean catch procedure / Unknown Non-blood Collection / Unknown 05/16/2024 12:39 AM EDT 05/16/2024 12:57 AM EDT us Violeta Monzon MD LAB URINE ORDERABLES Final Result [facility] [address] [place] [address] * Sodium, Random, Urine (05/16/2024 12:39 AM EDT) Sodium, Urine 86 mmol/L 05/16/2024 1:27 AM EDT [facility] Urine Urine specimen obtained by clean catch procedure / Unknown Non-blood Collection / Unknown 05/16/2024 12:39 AM EDT 05/16/2024 12:58 AM EDT us Alka Sanders APRN LAB URINE ORDERABLES Final Result [facility] [address] [place] [address] * Creatinine, Random, Urine (05/16/2024 12:39 AM EDT) Creatinine, Urine 67 mg/dL 05/16/2024 1:27 AM EDT [facility] Urine Urine specimen obtained by clean catch procedure / Unknown Non-blood Collection / Unknown 05/16/2024 12:39 AM EDT 05/16/2024 12:58 AM EDT us Alka Sanders APRN LAB URINE ORDERABLES Final Result [facility] [address] [place] [address] * (ABNORMAL) Urinalysis with reflex microscopic (Culture NOT Included) (05/16/2024 12:39 AM EDT) Color, Urine Yellow LAB URINALYSIS - AUTOMATED METHOD 05/16/2024 1:11 AM EDT [facility] Clarity, Urine Clear LAB URINALYSIS - AUTOMATED METHOD 05/16/2024 1:11 AM EDT [facility] Spec [place], Urine >1.030(H) 1.005 - 1.030 LAB URINALYSIS - AUTOMATED METHOD 05/16/2024 1:11 AM EDT [facility] pH, Urine 6.5 5.0 - 8.0 LAB URINALYSIS - AUTOMATED METHOD 05/16/2024 1:11 AM EDT [facility] Protein, Urine 100(A) Negative mg/dL LAB URINALYSIS - AUTOMATED METHOD 05/16/2024 1:11 AM EDT [facility] Glucose, Urine Negative Negative mg/dL LAB URINALYSIS - AUTOMATED METHOD 05/16/2024 1:11 AM EDT [facility] Ketones, Urine Negative Negative mg/dL LAB URINALYSIS - AUTOMATED METHOD 05/16/2024 1:11 AM EDT [facility] Blood, Urine Negative Negative LAB URINALYSIS - AUTOMATED METHOD 05/16/2024 1:11 AM EDT [facility] Bilirubin, Urine Negative Negative LAB URINALYSIS - AUTOMATED METHOD 05/16/2024 1:11 AM EDT [facility] Urobilinogen, Urine 0.2 0.2 to 1.0 mg/dL LAB URINALYSIS - AUTOMATED METHOD 05/16/2024 1:11 AM EDT [facility] Leukocytes, Urine Trace(A) Negative LAB URINALYSIS - AUTOMATED METHOD 05/16/2024 1:11 AM EDT [facility] Nitrite, Urine Negative Negative LAB URINALYSIS - AUTOMATED METHOD 05/16/2024 1:11 AM EDT [facility] RBC, Urine <1 0 to 3 /HPF LAB URINALYSIS - AUTOMATED METHOD 05/16/2024 1:11 AM EDT [facility] WBC, Urine 6 - 10(A) 0 to 5 /HPF LAB URINALYSIS - AUTOMATED METHOD 05/16/2024 1:11 AM EDT [facility] Squamous Epithelial Cells 0 - 2 0 to 5 /HPF LAB URINALYSIS - AUTOMATED METHOD 05/16/2024 1:11 AM EDT [facility] Hyaline Casts 0 - 2 0 to 5 /LPF LAB URINALYSIS - AUTOMATED METHOD 05/16/2024 1:11 AM EDT [facility] Bacteria, Urine Present Negative LAB URINALYSIS - AUTOMATED METHOD 05/16/2024 1:11 AM EDT [facility] Urine Urine specimen obtained by clean catch procedure / Unknown Non-blood Collection / Unknown 05/16/2024 12:39 AM EDT 05/16/2024 12:57 AM EDT Alka Sanders APRN LAB URINE ORDERABLES Final Result [facility] [address] [place] [address] * (ABNORMAL) Troponin T, High Sensitivity, 0 Hour Plasma, Reflex to 2 Hour (05/16/2024 12:01 AM EDT) Only the most recent of2 resultswithin the time period is included. Troponin T, High Sensitivity, 0 Hour 54(H) <14 ng/L 05/16/2024 12:34 AM EDT [facility] Blood Venous blood specimen / Unknown Venipuncture / Unknown 05/16/2024 12:01 AM EDT 05/16/2024 12:08 AM EDT us Gloria Leroy APRN, DNP LAB BLOOD ORDERABLES Fi nal Result [facility] [address] [place] [address] * XR Abdomen 1 View (05/15/2024 9:05 PM EDT) Anatomical Region Laterality Modality Body Digital Radiogra phy Impressions 05/15/2024 10:07 PM EDT No abnormal foreign metallic objects. CRITICAL RESULT: No. COMMUNICATION: Per this written report. Drafted by Shannon Montoya MD on 05/15/2024 10:05 PM Final report signed by Shannon Montoya MD on 05/15/2024 10:07 PM Narrative 05/15/2024 10:07 PM EDT CLINICAL INDICATION: MRI clearance TECHNIQUE: XR ABDOMEN 1 VIEW COMPARISON: None. FINDINGS: Median sternotomy wires. Coronary stents. Cholecystectomy clips. Excreted contrast in the right renal collecting system and distended urinary bladder. Gas within nondistended large and small bowel. Procedure Note Shannon Montoya MD - 05/15/2024 CLINICAL INDICATION: MRI clearance TECHNIQUE: XR ABDOMEN 1 VIEW COMPARISON: None. FINDINGS: Median sternotomy wires. Coronary stents. Cholecystectomy clips. Excretedcontrast in the right renal collecting system and distended urinarybladder. Gas within nondistended large and small bowel. IMPRESSION: No abnormal foreign metallic objects. CRITICAL RESULT: No. COMMUNICATION: Per this written report. Drafted by Shannon Montoya MD on 05/15/2024 10:05 PM Final report signed by Shannon Montoya MD on 05/15/2024 10:07 PM Gloria Leroy APRN, RAJESH IMG XR PROCEDURES Final Result * Etta auris Surveillance by PCR (05/15/2024 5:30 PM EDT) Etta auris PCR Result Not Detected Not Detected 05/16/2024 2:03 PM EDT [facility] Swab (Axilla and Groin) 05/15/2024 5:30 PM EDT 05/15/2024 5:48 PM EDT Narrative [facility] - 05/16/2024 2:03 PM EDT This PCR assay was developed and its performance characteristics determined by [facility] as appropriate for clinical purposes. This assay has not been cleared or approved by the FDA, but is performed in a CLIA regulated laboratory that is qualified to perform high-complexity testing. Mauro Egan MD LAB MICROBIOLOGY - GEN ERAL ORDERABLES Final Result Performing Organization Address City/[facility]/ZIP Co de Phone Number [facility] [address] [place] [address] * Multi Drug Resistance Test (05/15/2024 5:30 PM EDT) Pathologist [facility] Culture No growth at day 1 05/16/2024 9:[address] [facility] Swab (Nares and Zoraida Rectal) Non-blood Collection / Unknown 05/15/2024 5:30 PM EDT 05/15/2024 5:45 PM EDT Violeta Monzon MD LAB MICROBIOLOGY - GENERAL ORDERABLES Final Result Performing Organization Address City/[facility] Co de Phone Number [facility] [address] [place] [address] * Light Green Top (05/15/2024 5:15 PM EDT) Pathologist [facility] Extra Hold for add-ons 05/15/2024 8:01 PM EDT [facility] Comment:Auto resulted. Blood Venous blood specimen / Unknown 05/15/2024 5:15 PM EDT 05/15/2024 5:57 PM EDT Violeta Monzon MD LAB BLOOD ORDERABLES Final Result Performing Organization Address City/[facility]/ZIP Co de Phone Number [facility] [address] [place] [address] * Anti Xa Level Unfractionated Heparin (05/15/2024 5:15 PM EDT) Pathologist [facility] Anti Xa Level Unfractionated Heparin <0.11 <1.00 IU/mL LAB COAGULATION METHOD 05/15/2024 5:56 PM EDT [facility] Blood Venous blood specimen / Unknown Venipuncture / Unknown 05/15/2024 5:15 PM EDT 05/15/2024 5:32 PM EDT Narrative [facility] - 05/15/2024 5:56 PM EDT Therapeutic Range: UFH Full Dose and ACS/KS protocols*: 0.30 - 0.70 IU/mL UFH Low Dose protocol*: 0.25 - 0.50 IU/mL UFH prophylaxis: Not established us Kannan Fontaine DO LAB BLOOD ORDERABLES Final Re sult [facility] [address] [place] [address] * (ABNORMAL) Renal Function Panel, Plasma (05/15/2024 5:15 PM EDT) Glucose, Plasma 109(H) 74 - 99 mg/dL 05/15/2024 6:01 PM EDT [facility] BUN, Plasma 28(H) 8 - 23 mg/dL 05/15/2024 6:01 PM EDT [facility] Creatinine, Plasma 1.34(H) 0.60 - 1.10 mg/dL 05/15/2024 6:01 PM EDT [facility] BUN/Creatinine Ratio 21 05/15/2024 6:01 PM EDT [facility] Sodium, Plasma 139 136 - 145 mmol/L 05/15/2024 6:01 PM EDT [facility] Potassium, Plasma 3.8 3.6 - 4.9 mmol/L 05/15/2024 6:01 PM EDT [facility] Chloride, Plasma 105 97 - 107 mmol/L 05/15/2024 6:01 PM EDT [facility] CO2, Plasma 22 22 - 29 mmol/L 05/15/2024 6:01 PM EDT [facility] Anion Gap 12 6 - 16 mmol/L 05/15/2024 6:01 PM EDT [facility] Total Calcium, Plasma 9.4 8.9 - 10.2 mg/dL 05/15/2024 6:01 PM EDT [facility] Phosphorus, Plasma 3.8 2.5 - 4.5 mg/dL 05/15/2024 6:01 PM EDT [facility] Albumin, Plasma 3.8 3.5 - 5.2 g/dL 05/15/2024 6:01 PM EDT [facility] eGFRcr 43.0 mL/min/1.7 3m*2 05/15/2024 6:01 PM EDT [facility] Comment:Reported eGFRcr in m L/min/1.73m2 is based the CKD-EPI 2020 equation that does not use a race coefficient. Blood Venous blood specimen / Unknown Venipuncture / Unknown 05/15/2024 5:15 PM EDT 05/15/2024 5:32 PM EDT us Alka Sanders APRN LAB BLOOD ORDERABLES Final Result Performing Organization Address City/State/[facility] Co de Phone Number [facility] [address] [place] [address] * HI CRITICAL CARE, E/M 30-74 MINUTES (05/15/2024 4:39 PM EDT) Narrative Alka Sanders APRN - 05/15/2024 4:39 PM EDT Alka Sanders APRN 05/15/2024 4:46 PM Critical Care Performed by: Alka Sanders APRN Authorized by: Alka Sanders APRN Critical care provider statement: Critical care time (minutes): 39 Critical care time was exclusive of: Separately billable procedures and treating other patients Critical care was time spent personally by me on the following activities: Development of treatment plan with patient or surrogate, ordering and performing treatments and interventions, discussions with consultants, ordering and review of laboratory studies, discussions with primary provider, ordering and review of radiographic studies, evaluation of patient's response to treatment, review of old charts, examination of patient and obtaining history from patient or surrogate us Alka Sanders APRN IN CLINIC/BEDSIDE ORDERABL ES Final Result * ED HIV 1/2 Antibody/Antigen Screen w/Reflex to HIV 1/2 Differentiation (05/15/2024 3:03 PM EDT) HIV 1 & 2 Antibody/Antigen Screen Non Reactive Non Reactive 05/15/2024 4:16 PM EDT [facility] Comment:Screening for HIV 1 & 2 antibodies, and P24 antigen is NONREACTIVE. No confirmatory testing is required. Blood Venous blood specimen / Unknown Venipuncture / Unknown 05/15/2024 3:03 PM EDT 05/15/2024 3:34 PM EDT [employer] DO LAB BLOOD ORDERABLES Final Re sult Performing Organization Address City/[facility]/ZIP Co de Phone Number [facility] [address] [place] [address] * Hepatitis C Antibody - ED (05/15/2024 3:03 PM EDT) Pathologist [facility] Hepatitis C Antibody Negative Negative 05/15/2024 5:[address] [facility] Blood Venous blood specimen / Unknown Venipuncture / Unknown 05/15/2024 3:03 PM EDT 05/15/2024 3:34 PM EDT [employer] LAB BLOOD ORDERABLES Final Re sult Performing Organization Address [facility] Co de Phone Number [facility] [address] [place] [address] * APTT (PTT) (05/15/2024 3:03 PM EDT) aPTT 26 25 - 35 sec 05/15/2024 3:38 PM EDT [facility] Blood Venous blood specimen / Unknown Venipuncture / Unknown 05/15/2024 3:03 PM EDT 05/15/2024 3:11 PM EDT [employer] LAB BLOOD ORDERABLES Final Re sult Performing Organization Address City/[facility] Co de Phone Number [facility] [address] [place] [address] * (ABNORMAL) Prothrombin Time (05/15/2024 3:03 PM EDT) Pathologist [facility] Prothrombin Time 14.4(H) 12.0 - 14.3 sec 05/15/2024 3:37 PM EDT [facility] INR 1.1 0.9 - 1.1 05/15/2024 3:37 PM EDT [facility] Blood Venous blood specimen / Unknown Venipuncture / Unknown 05/15/2024 3:03 PM EDT 05/15/2024 3:11 PM EDT Narrative [facility] - 05/15/2024 3:37 PM EDT OPTIMAL INR RANGES FOR PATIENT ON ORAL ANTICOAGULANT THERAPY Prevention of venous thromboembolism INR 2.0 to 3.0 In patients with heart disease: Atrial fibrillation INR 2.0 to 3.0 Valvular heart disease INR 2.0 to 3.0 Tissue heart valves INR 2.0 to 3.0 Mechanical prosthetic valves INR 2.5 to 3.5 Prevention of recurrent KS INR 2.5 to 3.5 Kannan Fontaine DO LAB BLOOD ORDERABLES Final Re sult [facility] [address] [place] [address] * (ABNORMAL) CBC with Diff (05/15/2024 3:03 PM EDT) WBC Count 6.83 3.70 - 10.30 10*3/uL LAB HEMATOLOGY METHOD 05/15/2024 3:13 PM EDT [facility] RBC Count 4.58 3.90 - 5.20 10*6/uL LAB HEMATOLOGY METHOD 05/15/2024 3:13 PM EDT [facility] HGB 12.6 11.2 - 15.7 g/dL LAB HEMATOLOGY METHOD 05/15/2024 3:13 PM EDT [facility] HCT 38.7 34.0 - 45.0 % LAB HEMATOLOGY METHOD 05/15/2024 3:13 PM EDT [facility] Platelet Count 191 155 - 369 10*3/uL LAB HEMATOLOGY METHOD 05/15/2024 3:13 PM EDT [facility] MCV 85 79 - 98 fL LAB HEMATOLOGY METHOD 05/15/2024 3:13 PM EDT [facility] MCH 27.5 26.0 - 32.0 pg LAB HEMATOLOGY METHOD 05/15/2024 3:13 PM EDT [facility] MCHC 32.6 30.7 - 35.5 g/dL LAB HEMATOLOGY METHOD 05/15/2024 3:13 PM EDT [facility] RDW 14.4 11.5 - 14.5 % LAB HEMATOLOGY METHOD 05/15/2024 3:13 PM EDT [facility] MPV 9.6 8.8 - 12.5 fL LAB HEMATOLOGY METHOD 05/15/2024 3:13 PM EDT [facility] nRBC 0.0 <=0.0 per 100 WBCs LAB HEMATOLOGY METHOD 05/15/2024 3:13 PM EDT [facility] Differential Type Automated LAB HEMATOLOGY METHOD 05/15/2024 3:13 PM EDT [facility] Neutrophils % 79 % LAB HEMATOLOGY METHOD 05/15/2024 3:13 PM EDT [facility] Lymphocytes % 11 % LAB HEMATOLOGY METHOD 05/15/2024 3:13 PM EDT [facility] Monocytes % 7 % LAB HEMATOLOGY METHOD 05/15/2024 3:13 PM EDT [facility] Eosinophils % 3 % LAB HEMATOLOGY METHOD 05/15/2024 3:13 PM EDT [facility] Basophils % 0 % LAB HEMATOLOGY METHOD 05/15/2024 3:13 PM EDT [facility] Immature Granulocytes % 0 % LAB HEMATOLOGY METHOD 05/15/2024 3:13 PM EDT [facility] Neutrophils Absolute 5.41 1.60 - 6.10 10*3/uL LAB HEMATOLOGY METHOD 05/15/2024 3:13 PM EDT [facility] Lymphocytes Absolute 0.73(L) 1.20 - 3.90 10*3/uL LAB HEMATOLOGY METHOD 05/15/2024 3:13 PM EDT [facility] Monocytes Absolute 0.46 0.30 - 0.90 10*3/uL LAB HEMATOLOGY METHOD 05/15/2024 3:13 PM EDT [facility] Eosinophils Absolute 0.18 0.00 - 0.50 10*3/uL LAB HEMATOLOGY METHOD 05/15/2024 3:13 PM EDT [facility] Basophils Absolute 0.03 0.00 - 0.10 10*3/uL LAB HEMATOLOGY METHOD 05/15/2024 3:13 PM EDT [facility] Immature Granulocytes Absolute 0.02 0.00 - 0.06 10*3/uL LAB HEMATOLOGY METHOD 05/15/2024 3:13 PM EDT [facility] Blood Venous blood specimen / Unknown Venipuncture / Unknown 05/15/2024 3:03 PM EDT 05/15/2024 3:11 PM EDT Narrative [facility] - 05/15/2024 3:13 PM EDT Therapeutic decision making should be based on absolute values, rather than percentages. us [employer] DO LAB BLOOD ORDERABLES Final Re sult Performing Organization Address City/[facility]/ZIP Co de Phone Number [facility] [address] [place] [address] * Test Qualitative Plasma (05/15/2024 3:03 PM EDT) Test Negative Negative 05/15/2024 3:42 PM EDT [facility] Blood Venous blood specimen / Unknown Venipuncture / Unknown 05/15/2024 3:03 PM EDT 05/15/2024 3:11 PM EDT Narrative [facility] - 05/15/2024 3:42 PM EDT Reference Range: Males and non- females: Negative. us [employer] DO LAB BLOOD ORDERABLES Final Re sult Performing Organization Address City/[facility]/ZIP Co de Phone Number [facility] [address] [place] [address] * (ABNORMAL) Comprehensive Metabolic Panel (05/15/2024 3:03 PM EDT) Glucose, Plasma 112(H) 74 - 99 mg/dL 05/15/2024 3:42 PM EDT [facility] BUN, Plasma 27(H) 8 - 23 mg/dL 05/15/2024 3:42 PM EDT [facility] Creatinine, Plasma 1.30(H) 0.60 - 1.10 mg/dL 05/15/2024 3:42 PM EDT [facility] BUN/Creatinine Ratio 21 05/15/2024 3:42 PM EDT [facility] Sodium, Plasma 131(L) 136 - 145 mmol/L 05/15/2024 3:42 PM EDT [facility] Potassium, Plasma 7.2(HH) 3.6 - 4.9 mmol/L 05/15/2024 3:42 PM EDT [facility] Comment:Hemolyzed, result ma y be falsely increased. Chloride, Plasma 102 97 - 107 mmol/L 05/15/2024 3:42 PM EDT [facility] CO2, Plasma 19(L) 22 - 29 mmol/L 05/15/2024 3:42 PM EDT [facility] Anion Gap 10 6 - 16 mmol/L 05/15/2024 3:42 PM EDT [facility] Total Calcium, Plasma 8.8(L) 8.9 - 10.2 mg/dL 05/15/2024 3:42 PM EDT [facility] Total Protein 6.9 6.3 - 7.9 g/dL 05/15/2024 3:42 PM EDT [facility] Albumin, Plasma 3.5 3.5 - 5.2 g/dL 05/15/2024 3:42 PM EDT [facility] AST, Plasma 55(H) 10 - 35 U/L 05/15/2024 3:42 PM EDT [facility] Comment:Hemolyzed, result ma y be falsely increased. ALT, Plasma 6(L) 10 - 35 U/L 05/15/2024 3:42 PM EDT [facility] Comment:Hemolyzed, result ma y be falsely increased or decreased. Alkaline Phosphatase, Plasma 56 46 - 142 U/L 05/15/2024 3:42 PM EDT [facility] Comment:Hemolyzed, result ma y be falsely decreased. Total Bilirubin, Plasma 0.4 0.2 - 1.1 mg/dL 05/15/2024 3:42 PM EDT [facility] eGFRcr 44.6 mL/min/1.7 3m*2 05/15/2024 3:42 PM EDT [facility] Comment:Reported eGFRcr in m L/min/1.73m2 is based the CKD-EPI 2020 equation that does not use a race coefficient. Blood Venous blood specimen / Unknown Venipuncture / Unknown 05/15/2024 3:03 PM EDT 05/15/2024 3:11 PM EDT Kannan Fontaine DO LAB BLOOD ORDERABLES Final Re sult [facility] [address] [place] [address] * CT Chest w IV Contrast (05/15/2024 2:52 PM EDT) Anatomical Region Laterality Modality Chest Computed Tomogra phy Impressions 05/15/2024 3:43 PM EDT 1. Atherosclerotic cardiovascular disease. Focal outpouching of the left lateral aortic arch as above, compatible with sequela of a penetrating ulcer. The thoracic aorta is otherwise without acute finding. No appreciable pulmonary emboli within the central, perihilar, or proximal segmental pulmonary arteries. 2. Cardiomegaly. Bilateral posterior layering pleural effusions as above, with interstitial prominence in the lungs, consistent with interstitial edema. Correlate for clinical signs of CHF. 3. Occlusion of the right vertebral artery, see CTA of neck for further. 4. Heterogeneous nodules of the thyroid as above, recommend follow-up thyroid sonography if not previously evaluated. 5. Atherosclerotic disease of the infrarenal aorta, and at the origins of the visceral arteries, likely vasculogenic atrophy of the right kidney. 6. 2.7 cm lesion of the left adrenal, statistically an adenoma, however consider follow-up CT or MR protocoled for evaluation of the adrenals for further characterization. CRITICAL RESULT: No. COMMUNICATION: Per this written report. Drafted by Darinel Ayala MD on 05/15/2024 3:32 PM Final report signed by Darinel Ayala MD on 05/15/2024 3:43 PM Narrative 05/15/2024 3:43 PM EDT CLINICAL INDICATION: tachy, slurred, speech, HTN TECHNIQUE: Imaging of the chest was performed, from thoracic inlet through upper abdomen, using spiral technique, following administration of IV contrast, Omnipaque 300, 100 mL according to the CT Chest protocol. Total DLP (Dose-Length Product): 2474. Please note: The reported value represents the total of one or more individual components during the CT acquisition on this date and at this time, and as such, the same value may appear in more than one CT report depending on the interpreting/reporting physicians. COMPARISON: None. FINDINGS: Chest: The arch vessels appear patent. The right vertebral appears occluded. Atherosclerotic disease of the thoracic aorta. Focal outpouching of the left lateral arch with axial dimensions of 2.5 x 0.8 cm, sequela of a penetrating ulcer. Thoracic aorta otherwise of normal caliber. Cardiomegaly without pericardial effusion. Coronary calcifications. Previous median sternotomy/CABG. No filling defects appreciated within the central, perihilar, or proximal segmental pulmonary arteries. 2.7 x 2.9 x 3.7 cm heterogeneous nodule lower pole left thyroid (8/64, 6/78) with less heterogeneous appearing 2.5 cm nodule caudal medially (8/78). Small to moderate posterior layering left pleural effusion, smaller posterior layering right pleural effusion. Associated subpleural atelectasis abutting right upper and lower lobes, and of the abutting left lower lobe. Centrilobular emphysema. Septal prominence of the lungs, particularly in the apices and bases, consistent with interstitial edema. Calcified right paratracheal lymph nodes from previous granulomatous disease. No concerning adenopathy by size criteria. No esophageal distention. No free upper abdominal gas. Atherosclerotic disease of the visualized portion of the upper abdominal aorta, and at the origins of the visceral arteries, particularly the right renal, with infrarenal ectasia of the abdominal aorta to a diameter of 3.3 cm (8/430). Likely vasculogenic atrophy of the right kidney. Cholecystectomy. Intrahepatic and extra hepatic ductal dilation, likely postcholecystectomy ductal ectasia. 2.7 cm lesion of the left adrenal (8/387). No aggressive osseous lesions or acute findings. Procedure Note Darinel Ayala MD - 05/15/2024 CLINICAL INDICATION: tachy, slurred, speech, HTN TECHNIQUE: Imaging of the chest was performed, from thoracic inlet through upperabdomen, using spiral technique, following administration of IV contrast,Omnipaque 300, 100 mL according to the CT Chest protocol. Total DLP (Dose-Length Product): 2474. Please note: The reported valuerepresents the total of one or more individual components during the CTacquisition on this date and at this time, and as such, the same value mayappear in more than one CT report depending on the interpreting/reportingphysicians. COMPARISON: None. FINDINGS: Chest: The arch vessels appear patent. The right vertebral appears occluded.Atherosclerotic disease of the thoracic aorta. Focal outpouching of theleft lateral arch with axial dimensions of 2.5 x 0.8 cm, sequela of apenetrating ulcer. Thoracic aorta otherwise of normal caliber.Cardiomegaly without pericardial effusion. Coronary calcifications.Previous median sternotomy/CABG. No filling defects appreciated within thecentral, perihilar, or proximal segmental pulmonary arteries. 2.7 x 2.9 x 3.7 cm heterogeneous nodule lower pole left thyroid (,) with less heterogeneous appearing 2.5 cm nodule caudal medially(). Small to moderate posterior layering left pleural effusion, smallerposterior layering right pleural effusion. Associated subpleuralatelectasis abutting right upper and lower lobes, and of the abutting leftlower lobe. Centrilobular emphysema. Septal prominence of the lungs,particularly in the apices and bases, consistent with interstitialedema. Calcified right paratracheal lymph nodes from previous granulomatousdisease. No concerning adenopathy by size criteria. No esophageal distention. No free upper abdominal gas. Atherosclerotic disease of the visualizedportion of the upper abdominal aorta, and at the origins of the visceralarteries, particularly the right renal, with infrarenal ectasia of theabdominal aorta to a diameter of 3.3 cm (8/430). Likely vasculogenicatrophy of the right kidney. Cholecystectomy. Intrahepatic and extrahepatic ductal dilation, likely postcholecystectomy ductal ectasia. 2.7 cmlesion of the left adrenal (8/387). No aggressive osseous lesions or acute findings. IMPRESSION: 1. Atherosclerotic cardiovascular disease. Focal outpouching of the leftlateral aortic arch as above, compatible with sequela of a penetratingulcer. The thoracic aorta is otherwise without acute finding. Noappreciable pulmonary emboli within the central, perihilar, or proximalsegmental pulmonary arteries. 2. Cardiomegaly. Bilateral posterior layering pleural effusions as above,with interstitial prominence in the lungs, consistent with interstitialedema. Correlate for clinical signs of CHF. 3. Occlusion of the right vertebral artery, see CTA of neck for further. 4. Heterogeneous nodules of the thyroid as above, recommend follow-upthyroid sonography if not previously evaluated. 5. Atherosclerotic disease of the infrarenal aorta, and at the origins ofthe visceral arteries, likely vasculogenic atrophy of the right kidney. 6. 2.7 cm lesion of the left adrenal, statistically an adenoma, howeverconsider follow-up CT or MR protocoled for evaluation of the adrenals forfurther characterization. CRITICAL RESULT: No. COMMUNICATION: Per this written report. Drafted by Darinel Ayala MD on 05/15/2024 3:32 PM Final report signed by Darinel Ayala MD on 05/15/2024 3:43 PM us Kannan Nugent Christo DO IMG CT PROCEDURES Final Resul t * CT Angio Neck (05/15/2024 2:52 PM EDT) Anatomical Region Laterality Modality Carotid Artery Computed Tomogra phy Impressions 05/15/2024 3:37 PM EDT Neck CTA: 1. 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 2. Bilateral common carotid, bilateral internal carotid and left vertebral artery is patent. 3. Large left-sided thyroid nodule. Head CTA: 1. 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 2. No significant intracranial aneurysm is present. CRITICAL RESULT: YES. COMMUNICATION: The critical findings were discussed via EPIC secure chat with KANNAN FONTAINE on 05/15/2024 3:24 PM by Nancy Guerra MD with acknowledgment of the results . Drafted by Nancy Guerra MD on 05/15/2024 3:18 PM Final report signed by Nancy Guerra MD on 05/15/2024 3:37 PM Narrative 05/15/2024 3:37 PM EDT CLINICAL INDICATION: Neurologic deficit, acute, stroke suspected TECHNIQUE: Head CTA: Axial images were obtained through the head during contrast bolus injection and multiplanar MIP images were created. Neck CTA: Axial images were obtained through the neck during bolus contrast injection and multiplanar reformatted and MIP images were created. CTA imaging was analyzed by [facility]O ContaCT to enable computer-assisted triage and notification to rapidly detect a LVO and shorten time to notification 140 mL of Omnipaque 350 were administered intravenously. Total DLP (Dose-Length Product): 1038.8 mGy.cm. Please note: The reported value represents the total of one or more individual components during the CT acquisition on this date and at this time, and as such, the same value may appear in more than one CT report depending on the interpreting/reporting physicians. COMPARISON: None. FINDINGS: Neck CTA: Diagnostic Quality: Adequate Aorta and Great Vessel Origins: The aortic arch has a normal branching pattern. There is atherosclerotic calcification of thoracic aorta. There is focal aneurysmal dilatation of aortic arch which a has a maximum dilatation of the aorta about 3.5 cm. The aneurysm versus ulceration measures about 2.4 cm in longitudinal dimension. There is no significant stenosis of the origins of the great arteries of the neck. Right Cervical Carotid System: The right common carotid artery and its origin are patent. There is mild calcified atherosclerotic plaque at the carotid bifurcation. There is a 0% stenosis at the bifurcation by NASCET criteria. The right internal carotid artery demonstrates a tortuous retropharyngeal course. There is no evidence of dissection or pseudoaneurysm of the right common and internal carotid arteries. Left Cervical Carotid System: The left common carotid artery and its origin are patent. There is endovascular stent visible within the distal left common carotid artery. There is moderate calcification atherosclerotic plaque at the carotid bifurcation. There is a 0% stenosis at the bifurcation by NASCET criteria. The left internal carotid artery demonstrates a normal course in the cervical region. There is no evidence of dissection or pseudoaneurysm of the left common and internal carotid arteries. 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 The left cervical internal carotid artery is patent from its origin to the skull base. There is no evidence of a dissection, pseudoaneurysm, or significant stenosis of the vertebral arteries. Other Findings: There are bilateral pleural effusions. There is heterogeneous ground glass attenuation in the upper lobes. There are prominent bronchovascular markings in both lungs. Left lobe of thyroid is enlarged with an apparent mass measuring 4.5 x 2.6 x 3.5 cm in size. Nasopharynx, oropharynx, hypopharynx and larynx have a grossly normal appearance. The subglottic trachea is within normal limits in appearance. Cervical and upper thoracic vertebral bodies have normal height and alignment. Patient is partially edentulous. Head CTA: Diagnostic Quality: Adequate Vertebrobasilar System: The right intradural vertebral artery appears atretic and may be partially thrombosed. The left intradural vertebral artery is dominant and patent. The basilar artery and its major branches are within normal limits. There is no aneurysm. Carotid Arteries: Right ICA: There is atherosclerotic plaque with mild stenosis. Left ICA: There is atherosclerotic plaque with mild stenosis. Other Findings: There is no aneurysm of either internal carotid artery. Three [employer] [place] and Major Peripheral Branches: There is no significant stenosis or occlusion. There is no aneurysm. Other Findings: None. Procedure Note Nancy Guerra MD - 05/15/2024 CLINICAL INDICATION: Neurologic deficit, acute, stroke suspected TECHNIQUE: Head CTA: Axial images were obtained through the head during contrastbolus injection and multiplanar MIP images were created. Neck CTA: Axial images were obtained through the neck during boluscontrast injection and multiplanar reformatted and MIP images werecreated. CTA imaging was analyzed by [facility] LVO ContaCT to enable computer-assistedtriage and notification to rapidly detect a LVO and shorten time tonotification 140 mL of Omnipaque 350 were administered intravenously. Total DLP (Dose-Length Product): 1038.8 mGy.cm. Please note: The reportedvalue represents the total of one or more individual components during theCT acquisition on this date and at this time, and as such, the same valuemay appear in more than one CT report depending on theinterpreting/reporting physicians. COMPARISON: None. FINDINGS: Neck CTA: Diagnostic Quality: Adequate Aorta and Great Vessel Origins: The aortic arch has a normal branchingpattern. There is atherosclerotic calcification of thoracic aorta. There is focalaneurysmal dilatation of aortic arch which a has a maximum dilatation ofthe aorta about 3.5 cm. The aneurysm versus ulceration measures about 2.4cm in longitudinal dimension. There is no significant stenosis of the origins of the great arteries ofthe neck. Right Cervical Carotid System: The right common carotid artery and itsorigin are patent. There is mild calcified atherosclerotic plaque at thecarotid bifurcation. There is a 0% stenosis at the bifurcation by NASCETcriteria. The right internal carotid artery demonstrates a tortuousretropharyngeal course. There is no evidence of dissection orpseudoaneurysm of the right common and internal carotid arteries. Left Cervical Carotid System: The left common carotid artery and itsorigin are patent. There is endovascular stent visible within the distalleft common carotid artery. There is moderate calcificationatherosclerotic plaque at the carotid bifurcation. There is a 0% stenosisat the bifurcation by NASCET criteria. The left internal carotid arterydemonstrates a normal course in the cervical region. There is no evidenceof dissection or pseudoaneurysm of the left common and internal carotidarteries. 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 Theleft cervical internal carotid artery is patent from its origin to theskull base. There is no evidence of a dissection, pseudoaneurysm, orsignificant stenosis of the vertebral arteries. Other Findings: There are bilateral pleural effusions. There isheterogeneous ground glass attenuation in the upper lobes. There areprominent bronchovascular markings in both lungs. Left lobe of thyroid is enlarged with an apparent mass measuring 4.5 x 2.6x 3.5 cm in size. Nasopharynx, oropharynx, hypopharynx and larynx have a grossly normalappearance. The subglottic trachea is within normal limits inappearance. Cervical and upper thoracic vertebral bodies have normal height andalignment. Patient is partially edentulous. Head CTA: Diagnostic Quality: Adequate Vertebrobasilar System: The right intradural vertebral artery appearsatretic and may be partially thrombosed. The left intradural vertebralartery is dominant and patent. The basilar artery and its major branchesare within normal limits. There is no aneurysm. Carotid Arteries: Right ICA: There is atherosclerotic plaque with mild stenosis. Left ICA: There is atherosclerotic plaque with mild stenosis. Other Findings: There is no aneurysm of either internal carotid artery. Three Affiliated of Lyn and Major Peripheral Branches: There is no significantstenosis or occlusion. There is no aneurysm. Other Findings: None. 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 2.Bilateral common carotid, bilateral internal carotid and left vertebralartery is patent. 3.Large left-sided thyroid nodule. 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 2.No significant intracranial aneurysm is present. CRITICAL RESULT: YES. COMMUNICATION: The critical findings were discussed via [employer] secure chat with KANNAN PETERSON on 05/15/2024 3:24 PM by Nancy Guerra MD with acknowledgment of theresults . Drafted by Nancy Guerra MD on 05/15/2024 3:18 PM Final report signed by Nancy Guerra MD on 05/15/2024 3:37 PM us Kannan Fontaine DO IMG CT PROCEDURES Final Resul t * CT Angio Head (05/15/2024 2:52 PM EDT) Anatomical Region Laterality Modality Three [employer] Lyn Computed Tomogr aphy Impressions 05/15/2024 3:37 PM EDT Neck CTA: 1. 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 2. Bilateral common carotid, bilateral internal carotid and left vertebral artery is patent. 3. Large left-sided thyroid nodule. Head CTA: 1. 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 2. No significant intracranial aneurysm is present. CRITICAL RESULT: YES. COMMUNICATION: The critical findings were discussed via [employer] secure chat with KANNAN FONTAINE on 05/15/2024 3:24 PM by Nancy Guerra MD with acknowledgment of the results . Drafted by Nancy Guerra MD on 05/15/2024 3:18 PM Final report signed by Nancy Guerra MD on 05/15/2024 3:37 PM Narrative 05/15/2024 3:37 PM EDT CLINICAL INDICATION: Neurologic deficit, acute, stroke suspected TECHNIQUE: Head CTA: Axial images were obtained through the head during contrast bolus injection and multiplanar MIP images were created. Neck CTA: Axial images were obtained through the neck during bolus contrast injection and multiplanar reformatted and MIP images were created. CTA imaging was analyzed by [facility] LVO ContaCT to enable computer-assisted triage and notification to rapidly detect a LVO and shorten time to notification 140 mL of Omnipaque 350 were administered intravenously. Total DLP (Dose-Length Product): 1038.8 mGy.cm. Please note: The reported value represents the total of one or more individual components during the CT acquisition on this date and at this time, and as such, the same value may appear in more than one CT report depending on the interpreting/reporting physicians. COMPARISON: None. FINDINGS: Neck CTA: Diagnostic Quality: Adequate Aorta and Great Vessel Origins: The aortic arch has a normal branching pattern. There is atherosclerotic calcification of thoracic aorta. There is focal aneurysmal dilatation of aortic arch which a has a maximum dilatation of the aorta about 3.5 cm. The aneurysm versus ulceration measures about 2.4 cm in longitudinal dimension. There is no significant stenosis of the origins of the great arteries of the neck. Right Cervical Carotid System: The right common carotid artery and its origin are patent. There is mild calcified atherosclerotic plaque at the carotid bifurcation. There is a 0% stenosis at the bifurcation by NASCET criteria. The right internal carotid artery demonstrates a tortuous retropharyngeal course. There is no evidence of dissection or pseudoaneurysm of the right common and internal carotid arteries. Left Cervical Carotid System: The left common carotid artery and its origin are patent. There is endovascular stent visible within the distal left common carotid artery. There is moderate calcification atherosclerotic plaque at the carotid bifurcation. There is a 0% stenosis at the bifurcation by NASCET criteria. The left internal carotid artery demonstrates a normal course in the cervical region. There is no evidence of dissection or pseudoaneurysm of the left common and internal carotid arteries. 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 The left cervical internal carotid artery is patent from its origin to the skull base. There is no evidence of a dissection, pseudoaneurysm, or significant stenosis of the vertebral arteries. Other Findings: There are bilateral pleural effusions. There is heterogeneous ground glass attenuation in the upper lobes. There are prominent bronchovascular markings in both lungs. Left lobe of thyroid is enlarged with an apparent mass measuring 4.5 x 2.6 x 3.5 cm in size. Nasopharynx, oropharynx, hypopharynx and larynx have a grossly normal appearance. The subglottic trachea is within normal limits in appearance. Cervical and upper thoracic vertebral bodies have normal height and alignment. Patient is partially edentulous. Head CTA: Diagnostic Quality: Adequate Vertebrobasilar System: The right intradural vertebral artery appears atretic and may be partially thrombosed. The left intradural vertebral artery is dominant and patent. The basilar artery and its major branches are within normal limits. There is no aneurysm. Carotid Arteries: Right ICA: There is atherosclerotic plaque with mild stenosis. Left ICA: There is atherosclerotic plaque with mild stenosis. Other Findings: There is no aneurysm of either internal carotid artery. Three Affiliated of Lyn and Major Peripheral Branches: There is no significant stenosis or occlusion. There is no aneurysm. Other Findings: None. Procedure Note Nancy Guerra MD - 05/15/2024 CLINICAL INDICATION: Neurologic deficit, acute, stroke suspected TECHNIQUE: Head CTA: Axial images were obtained through the head during contrastbolus injection and multiplanar MIP images were created. Neck CTA: Axial images were obtained through the neck during boluscontrast injection and multiplanar reformatted and MIP images werecreated. CTA imaging was analyzed by [facility] LVO ContaCT to enable computer-assistedtriage and notification to rapidly detect a LVO and shorten time tonotification 140 mL of Omnipaque 350 were administered intravenously. Total DLP (Dose-Length Product): 1038.8 mGy.cm. Please note: The reportedvalue represents the total of one or more individual components during theCT acquisition on this date and at this time, and as such, the same valuemay appear in more than one CT report depending on theinterpreting/reporting physicians. COMPARISON: None. FINDINGS: Neck CTA: Diagnostic Quality: Adequate Aorta and Great Vessel Origins: The aortic arch has a normal branchingpattern. There is atherosclerotic calcification of thoracic aorta. There is focalaneurysmal dilatation of aortic arch which a has a maximum dilatation ofthe aorta about 3.5 cm. The aneurysm versus ulceration measures about 2.4cm in longitudinal dimension. There is no significant stenosis of the origins of the great arteries ofthe neck. Right Cervical Carotid System: The right common carotid artery and itsorigin are patent. There is mild calcified atherosclerotic plaque at thecarotid bifurcation. There is a 0% stenosis at the bifurcation by NASCETcriteria. The right internal carotid artery demonstrates a tortuousretropharyngeal course. There is no evidence of dissection orpseudoaneurysm of the right common and internal carotid arteries. Left Cervical Carotid System: The left common carotid artery and itsorigin are patent. There is endovascular stent visible within the distalleft common carotid artery. There is moderate calcificationatherosclerotic plaque at the carotid bifurcation. There is a 0% stenosisat the bifurcation by NASCET criteria. The left internal carotid arterydemonstrates a normal course in the cervical region. There is no evidenceof dissection or pseudoaneurysm of the left common and internal carotidarteries. 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 Theleft cervical internal carotid artery is patent from its origin to theskull base. There is no evidence of a dissection, pseudoaneurysm, orsignificant stenosis of the vertebral arteries. Other Findings: There are bilateral pleural effusions. There isheterogeneous ground glass attenuation in the upper lobes. There areprominent bronchovascular markings in both lungs. Left lobe of thyroid is enlarged with an apparent mass measuring 4.5 x 2.6x 3.5 cm in size. Nasopharynx, oropharynx, hypopharynx and larynx have a grossly normalappearance. The subglottic trachea is within normal limits inappearance. Cervical and upper thoracic vertebral bodies have normal height andalignment. Patient is partially edentulous. Head CTA: Diagnostic Quality: Adequate Vertebrobasilar System: The right intradural vertebral artery appearsatretic and may be partially thrombosed. The left intradural vertebralartery is dominant and patent. The basilar artery and its major branchesare within normal limits. There is no aneurysm. Carotid Arteries: Right ICA: There is atherosclerotic plaque with mild stenosis. Left ICA: There is atherosclerotic plaque with mild stenosis. Other Findings: There is no aneurysm of either internal carotid artery. Three [employer]iliated [employer] Lyn and Major Peripheral Branches: There is no significantstenosis or occlusion. There is no aneurysm. Other Findings: None. 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 2.Bilateral common carotid, bilateral internal carotid and left vertebralartery is patent. 3.Large left-sided thyroid nodule. 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 2.No significant intracranial aneurysm is present. CRITICAL RESULT: YES. COMMUNICATION: The critical findings were discussed via [employer] secure chat with KANNAN PETERSON on 05/15/2024 3:24 PM by Nancy Guerra MD with acknowledgment of theresults . Drafted by Nancy Guerra MD on 05/15/2024 3:18 PM Final report signed by Nancy Guerra MD on 05/15/2024 3:37 PM Kannan Raffi Fontaine DO IMG CT PROCEDURES Final Resul t * (ABNORMAL) POCT glucose meter (05/15/2024 2:22 PM EDT) POCT Glucose 130(H) 74 - 99 mg/dL 05/15/2024 2:25 PM EDT [facility] Comment:Accuracy of a glucos e result obtained from a capillary whole blood specimen relies upon adequate, non-compromised capillary blood flow. If the capillary glucose result is not consistent with the patient's clinical signs and symptoms, glucose testing should be repeated with either an arterial or venous sample on the glucometer or sent to the main labortory for testing. Comment 05/15/2024 2:25 PM EDT [facility] Auto Service Representative ID Deanne Macias 05/16/19 2:25 PM EDT [facility] Device ID [id number] 05/15/2024 2:25 PM EDT [facility] Specimen Type POC Capillary 05/15/2024 2:25 PM EDT [facility] Blood Capillary blood specimen / Unknown 05/15/2024 2:22 PM EDT 05/15/2024 2:25 PM EDT Kannan Fontaine DO LAB POINT OF CARE TE ST DOCKED DEVICE UNSOLICITED RESULTS Final Result [facility] [address] [place] [address] from Last [address] [place] [address] [address] [place] [address] MEDICARE [employer] MEDICARE Advance Directives Documents on File Type Date Recorded Patient Geometrician Expl anation Advance Directives and Livin g Will 05/21/2024 9:23 AM Advance Directives and Livin g Will 03/17/2022 Power of Exerciser 03/17/2022 * Full Code (Latest Code Status on File) Date Activated Date Inactivated Comments 05/15/2024 3:29 PM 05/20/2024 4:53 PM Decision mad e by POA * Full Code Date Activated Date Inactivated Comments 04/05/2022 4:18 PM 04/14/2022 6:20 PM Question Answer Comments Patient has decision-making capacity? Yes Care Teams Finisher Hand Relationship Specialty Start Date End Date Meek Lucio APRN [address] [place] [address] PCP - General 05/17/24 Nico Hayward MD [address] [place] [address] 05/15/24 Ryan Rice MD [address] [address] Referring Physician Cardiology 03/21/22
--- OUTSIDE RECORDS SUMMARY | 2024-08-13 09:00 | XMS_ITS | Encounter Summary ---
Author Organization [facility] Address [address] [place] [address] Care Team Providers Care Vice President Regulatory Name Role Phone Nico Hayward MD Primary Care Provider + [phone] Pcp, No Primary Care Provider UnavailMeek Grimes APRN Primary Care Provider [phone] Nico Haywadr MD Unavailable [phone] Ryan Rice MD Unavailable [phone] Encounter Details Date Type Department Care Team (Late st Contact Info) Description 02/22/2022 Orders Only External Location [address] [place] [address] Ryan Rice MD [address] [address] Social History Tobacco Use Types Packs/Day Years Used Date Smoking Tobacco: Every Day Comments Unknown Sex and Gender Information Value Date Recorded Sex Assigned at Female 04/13/2022 9:50 AM EST Legal Sex Female 7:35 PM EDT Gender Identity Female 04/13/2022 9:50 AM EST Sexual Orientation Straight 04/13/2022 9: 50 AM EST documented as of this encounter Plan of Treatment Upcoming Encounters Date Type Department Care Team (Late st Contact Info) Description 09/27/2024 9:40 AM EDT Office Visit [facility] [address] [place] [address] Gabriella Brand, ENROLLMENT CONSULTANT [address] [facility] [address] [place] [address] 11/20/2024 4:00 PM EDT Consult [place] [facility] [address], [address] [place] [address] Chris Gramajo MD [address] [facility] [address] [place] [address] documented as of this encounter Procedures Procedure [...] on filedocumented in this encounter Care Teams Vice President Regulatory Relationship Specialty Start Date End Date Nico Hayward MD [address] [place] [address] PCP - General 07/17/20 05/14/24 [place], [place] [address] PCP - General Family Medicine 05/15/24 05/16/24 Meek Lucio, ENROLLMENT CONSULTANT [address] [place] [address] PCP - General 05/17/24 Ncio Hayward MD [address] [place] [address] 05/15/24 Ryan Rice MD [address] [place] [address] Referring Physician Cardiology 03/21/22 documented as of this encounter
--- OUTSIDE RECORDS SUMMARY | 2024-08-13 09:00 | XMS_ITS | Encounter Summary ---
Author Organization [facility] Address [address] [place] [address] Care Team Providers Care Merchant Mariner Name Role Phone Nico Hayward MD Primary Care Provider + [phone] Pcp, No Primary Care Provider UnavailMeek Grimes APRN Primary Care Provider [phone] Nico Hayward MD Unavailable [phone] Ryan Rice MD Unavailable [phone] Encounter Details Date Type Department Care Team (Late st Contact Info) Description 04/11/2022 Lab Requisition [facility] [address] [place] [address] Valentin Aviles MD [address] [facility] [address] [facility] [address] [place] [address] Encounter for general adult medical examination without [...] AM EST documented as of this encounter Functional Status * Calculated C-SSRS Risk Score (Lifetime/Recent) Answer Date of Assessment Author No Risk Indicated 04/12/2022 12:00 PM EST Rani Vargas RN * Question Answer Date of Assessment Author 1. Wish to be (Past 1 Month) No 023 12:00 PM Rani Kingston RN 2. Non-Specific Active Suici sapphire Thoughts (Past 1 Month) No 04/12/2022 12:00 PM Emelina Kingston RN 6. Suicidal Behavior (Lifetime) No 12:00 PM Rani Kingston RN documented as of this encounter Plan of Treatment Upcoming Encounters Date Type Department Care Team (Late st Contact Info) Description 09/27/2024 9:40 AM EDT Office Visit [facility] [address] [place] [address] Gabriella Brand, METAL REED TUNER [address] [facility] [address] [place] [address] 11/20/2024 4:00 PM EDT Consult [place] [facility] [address] [place] [address] Chris Gramajo MD [address] [place] [address] documented as of this encounter Procedures Procedure Name Priority Date/Time Associated Diagnosis Comments MULTI DRUG RESISTANCE TEST Routine 04/11/2022 8:00 PM EST Encounter for general adult medical examination without abnormal findings documented in this encounter Results * Multi Drug Resistance Test (04/11/2022 8:00 PM EST) Culture No growth at day 2 04/13/2022 9:20 AM EST [facility] Swab (Nares and Zoraida Rectal) 04/11/2022 8:00 PM EST 04/11/2022 9:54 PM EST us Valentin Schulz MD LAB MICROBIOLOGY - GENERAL ORDERABLES Final Result [facility] [address] [place] [address] documented in this encounter Visit Diagnoses Diagnosis Encounter for general adult medical examination without abnormal findings documented in this encounter Additional Health Concerns Assessment Noted Time A fall risk assessment has been complete d for the patient 03/17/2022 9:15 AM EST documented as of this encounter Care Teams Merchant Mariner Relationship Specialty Start Date End Date Nico Hayward MD [address] [place] [address] PCP - General 07/17/20 05/14/24 Pcp, [place] [address] PCP - General Family Medicine 05/15/24 05/16/24 Meek Lucio APRN [address] [place] [address] PCP - General 05/17/24 Nico Hayward MD [address] [place] [address] 05/15/24 Ryan Rice MD [address] [facility] [address] [place] [address] Referring Physician Cardiology 03/21/22 documented as of this encounter
--- OUTSIDE RECORDS SUMMARY | 2024-08-13 09:00 | XMS_ITS | Encounter Summary ---
Author Organization [facility] Address [address] [place] [address] Care Team Providers Care Armament Repairer Name Role Phone Meek Lucio BERNARDINO Primary Care Provider [phone] Nico Hayward MD Unavailable [phone] Ryan Rice MD Unavailable [phone] Encounter Details Date Type Department Care Team (Late st Contact Info) Description 08/07/2024 Orders Only [facility] [address] [place] [address] Nannette Leslie JIN (acute kidney injury) (CMS/HCC) (Primary Dx); Vitamin D insufficiency Social History Tobacco Use Types Packs/Day Years [...] money to buy more. Never true 05/18/19 Within the past 12 months, t he [...] any time in the past 12 m [facility], were you homeless or living in a care home (including now)? No 05/17/2024 Utilities Answer Date [...] Description 09/27/2024 9:40 AM EDT Office Visit [facility] [address] [place] [address] Gabriella Brand, BEFORE SCHOOL [address] [place] [address] 11/20/2024 4:00 PM EDT Consult [place] [facility] [address] [place] [address] Chris Gramajo MD [address] [place] [address] Scheduled Orders Name Type Priority Associated Diagnoses Orde r Schedule Renal Function Panel, Plasma Lab Routine JIN (acute kidney injury) ([facility]) Expected: 08/07/2024 (Approximate), Expires: 02/06/2026 CBC W/O Differential Lab Routine JIN (acute kidney injury) ([facility]) Expected: 08/07/2024 (Approximate), Expires: 02/06/2026 Vitamin D 25 Hydroxy Lab Routine JIN (acute kidney injury) ([facility]) Vitamin D insufficiency Expected: 08/07/2024 (Approximate), Expires: 02/06/2026 PTH Intact Total Lab Routine JIN (acute kidney injury) ([facility]) Vitamin D insufficiency Expected: 08/07/2024 (Approximate), Expires: 02/06/2026 Urinalysis with reflex microscopic (Culture NOT Included) Lab Routine JIN (acute kidney injury) ([facility]) Expected: 08/07/2024 (Approximate), Expires: 02/06/2026 Protein, Random, Urine with Creatinine Lab Routine JIN (acute kidney injury) ([facility]) Expected: 08/07/2024 (Approximate), Expires: 02/06/2026 Creatinine, Random, Urine Lab Routine JIN (acute kidney injury) ([facility]) Expected: 08/07/2024 (Approximate), Expires: 02/06/2026 documented as of this encounter Visit Diagnoses Diagnosis JIN (acute kidney injury) ([facility])- Primary Vitamin D insufficiency documented in this encounter Additional Health Concerns Assessment Noted Time A fall risk assessment has been complete d for the patient 05/05/2022 2:35 PM EST A Body Mass Index follow-up plan has been documented for the patient 05/20/2024 2:03 PM EDT documented as of this encounter Care Teams Armament Repairer Relationship Specialty Start Date End Date Meek Lucio APRN [address] [place] [address] PCP - General 05/17/24 Nico Hayward MD [address] [place] [address] 05/15/24 Ryan Rice MD [address] [facility] [address] [place] [address] Referring Physician Cardiology 03/21/22 documented as of this encounter
--- OUTSIDE RECORDS SUMMARY | 2024-08-13 09:00 | XMS_ITS | Encounter Summary ---
Author Organization [facility] Address [address] [place] [address] Care Team Providers Care Supervisor Rod Placing Name Role Phone Nico Hayward MD Primary Care Provider + [phone] Pcp, No Primary Care Provider UnavailMeek Grimes APRN Primary Care Provider [phone] Nico Hayward MD Unavailable [phone] Ryan Rice MD Unavailable [phone] Encounter Details Date Type Department Care Team (Late st Contact Info) Description 02/22/2022 Orders Only External Location [address] [place] [address] Ryan Rice MD [address] [address] Social History Tobacco Use Types [...] Description 09/27/2024 9:40 AM EDT Office Visit [facility] [address] [place] [address] Gabriella Brand, TARE WORKER [address] [place] [address] 11/20/2024 4:00 PM EDT Consult [place] [facility] [address] [place] [address] Chris Gramajo MD [address] [place] [address] documented as of this encounter [...] on filedocumented in this encounter Care Teams Supervisor Rod Placing Relationship Specialty Start Date End Date Nico Hayward MD [address] [place] [address] PCP - General 07/17/20 05/14/24 Pcp, [place] [address] PCP - General Family Medicine 05/15/24 05/16/24 Meek Lucio, TARE WORKER [address] [place] [address] PCP - General 05/17/24 Nico Hayward MD [address] [place] [address] 05/15/24 Ryan Rice MD [address] [place] [id number] Referring Physician Cardiology 03/21/22 documented as of this encounter
--- OUTSIDE RECORDS SUMMARY | 2024-08-13 09:00 | XMS_ITS | Encounter Summary ---
Author Organization [facility] Address [address] [place] [address] Care Team Providers Care Rock Climbing Instructor Name Role Phone Pcp, No Primary Care Provider Unavailabl e Meek Lucio APRN Primary Care Provider [phone] Nico Hayward MD Unavailable [phone] Ryan Rice MD Unavailable [phone] Encounter Details Date Type Department Care Team (Late st Contact Info) Description 05/15/2024 Lab Requisition [facility] [address] [place] [address] Mauro Egan MD [address] [facility] [address] [place] [address] Encounter for general adult medical examination without abnormal findings Social History Tobacco Use Types Packs/Day Years Used Date Smoking Tobacco: Never Assessed Humiliation, Afraid, Rape, and Kick questionnair e [...] were you homeless or living in a retirement (including now)? No 05/17/2024 Utilities Answer Date [...] Date of Assessment Author No Risk Indicated 05/18/2024 8:00 AM EDT Emerita Wise RN * Question Answer Date of Assessment Author 1. Wish to be (Past 1 Month) No 05/18/2024 8:00 AM EDT Emerita Rojas RN 2. Non-Specific Active Suicidal Thoughts (Past 1 Month) No 05/18/2024 8:00 AM EDT Emerita Rojas, DARIUS 6. Suicidal Behavior (Lifetime) No 05/18/2024 8:00 AM EDT Emerita Rojas RN documented as of this encounter Plan of Treatment Upcoming Encounters Date Type Department Care Team (Late st Contact Info) Description 09/27/2024 9:40 AM EDT Office Visit [facility] [address] [place] [address] Gabriella Brand, CERTIFIED NURSE MIDWIFE [address] [facility] [place] [address] [place] [address] 11/20/2024 4:00 PM EDT Consult [place] [facility] [address] [place] [address] Chris Gramajo MD [address] [facility] [address] [place] [address] documented as of this encounter Procedures Procedure Name Priority Date/Time Associated Diagnosis Comments ETTA AURIS SURVEILLANCE BY PCR Routine 05/15/2024 5:30 PM EDT Encounter for general adult medical examination without abnormal findings documented in this encounter Results * Etta auris Surveillance by PCR (05/15/2024 5:30 PM EDT) Etta auris PCR Result Not Detected Not Detected 05/16/2024 2:03 PM EDT [facility] Swab (Axilla and Groin) 05/15/2024 5:30 PM EDT 05/15/2024 5:48 PM EDT Narrative [facility] - 05/16/2024 2:03 PM EDT This PCR assay was developed and its performance characteristics determined by [facility] as appropriate for clinical purposes. This assay has not been cleared or approved by the FDA, but is performed in a CLIA regulated laboratory that is qualified to perform high-complexity testing. Mauro Egan MD LAB MICROBIOLOGY - GEN ERAL ORDERABLES Final Result [facility] [address] [place] [address] documented in this encounter Visit Diagnoses Diagnosis [...] documented as of this encounter Care Teams Rock Climbing Instructor Relationship Specialty Start Date End Date Pcp, No [address] [place] [address] PCP - General Family Medicine 05/15/24 05/16/24 Meek Lucio APRN [address] [place] [address] PCP - General 05/17/24 Nico Hayward MD [address] [place] [address] 05/15/24 Ryan Rice MD [facility] [address] [address] Referring Physician Cardiology 03/21/22 documented as of this encounter
[2024-08-13 10:35] VITALS: PULSE 82; PULSE 86
[2024-08-13] MEDS: ALBUTEROL 0.083% 2.5 MG/3 ML NEB IH (10:35)
--- NOTE | 2024-08-13 12:30 | NM_ITS ---
APPROVED REPORT Exam: Nuclear Stress Test Indication: SOB, CAD, Hx of TX, CABG, HTN, High cholesterol, Family history Patient Location: Outpatient Stress Tech: Kristen Pena CT Tech:Holly Griffiths, ARRT, RT (R)(N) Ht: 5 ft 6 in Wt: 170 lbs Bra Size: D HR: 78 bpm BP: 169/96 mmHg BSA: 1.87 m2 TID: 1.49 BMI: 27.4 History: SOB, CAD, Hx of TX, CABG, HTN, High cholesterol, Family history Procedure: Patient received 0.4 mg of intravenous Lexiscan, resting heart rate 78 bpm, resting blood pressure 169/96 mmHg, with Lexiscan maximum heart rate achieved was 98 bpm which is % of the maximum predicted heart rate and blood pressure was 162/97 mmHg. With Lexiscan, patient denied any complaint of chest pain. Cardiac Stress and Resting SPECT Images: Cardiac Stress and Resting SPECT images were obtained using technetium 99m Myoview 31.5 mCi stress and 10.73 mCi at rest. The patient is unable to lie on her abdomen. Therefore, prone stress imaging could not be performed. This may affect the diagnostic interpretation of the study findings. Resting and stress imaging in supine positions demonstrate a large sized, severe, predominantly fixed perfusion defect in the inferior and lateral LV swanson. There is minimal reversibility towards the lateral LV wall region. Gated imaging demonstrates severe reduction in global LV systolic function. LVEF is calculated at 26%. Conclusion: Large sized, severe, predominantly fixed perfusion defect in the inferior and lateral LV swanson. There is minimal reversibility towards the lateral LV wall region, suggestive of partial reversible ischemia. Gated imaging demonstrates severe reduction in global LV systolic function. LVEF is calculated at 26%. Correlation with recent TTE is suggested. Electronically signed by : Chelsie Hutton MD 08/14/2024 12:53:27
--- NOTE | 2024-08-13 13:13 | CT_ITS ---
FINAL REPORT TECHNIQUE: Axial images were obtained through the chest without contrast. Reconstructed images were obtained and reviewed. This study was performed with techniques to keep radiation doses as low as reasonably achievable, (ALARA). Individualized dose reduction techniques using automated exposure control or adjustment of mA and/or kV according to the patient's size were employed. CLINICAL HISTORY: Lung nodule follow-up COMPARISON: 01/31/2024 FINDINGS: There are thyroid masses in the left lobe of the thyroid and isthmus measuring up to 2.6 cm in the left lobe of the thyroid. Findings may be related to multinodular goiter. Patient is status post median sternotomy. There are few small scattered mediastinal lymph nodes. There is moderate coronary artery calcification. There is aneurysmal protuberance along the lateral margin of the aortic arch which is stable since prior. Previously identified moderate effusions have significantly improved since prior. Trace left effusion is present. There are mild changes of centrilobular emphysema. There is scarring at the left base. Limited images of the upper abdomen reveal an atrophic right kidney. The gallbladder is absent. There is a left adrenal mass with a mean attenuation value of 11 Hounsfield units. Mass measures 3.2 cm in diameter and is stable since prior. IMPRESSION: Significant improvement in moderate effusions with trace left effusion present. 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 Multinodular goiter. Left adrenal mass is stable, likely an adenoma. Reviewed, Interpreted and Dictated by Howard Bazan MD Transcribed by Amy Broderick Authenticated and [facility]
[2024-08-13] MEDS: SODIUM CHLORIDE 0.9% 10ML SYR (RAD ONLY) 10 ML IV ×2 (13:48)
[2024-08-13] MEDS: ISOTOPE MYOVIEW (PER STUDY) 1 DOSE IV (13:48)
[2024-08-13] MEDS: REGADENOSON 0.4MG/5ML SYRINGE 0.4 MG IV (13:48)
--- NOTE | 2024-08-13 15:00 | CA_ITS ---
APPROVED REPORT EXAM: Comprehensive 2D, Doppler, and color-flow Echocardiogram Tape Duplicator: Josey Zhu RDCS Ht: 5 ft 6 in Wt: 170lbs BSA: 1.87 BP: 124/70 mmHg Indications: SOA M-Mode Dimensions RVDd 2.68 cm (0.9-2.6) LA Diam 2.94 cm (1.9-4.0) LVDd 3.07 cm (3.5-5.7) LVDs 2.17 cm (3.5-5.7) IVSd 1.49 cm (0.6-1.1) PWd 1.19 cm (0.6-1.1) EF (Teich) 57.60% FS 29.30% EDV (Teich) 37.00 mL ESV (Teich) 15.70 mL Other Information Study Quality: Technically Difficult Conclusion This is a limited TTE to evaluate for LV systolic function. No other windows are obtained. Technically difficult study. The left ventricle is normal in size. There is increased LV wall thickness. There is moderate to severe global hypokinesis present. The septum is asynchronous. Regional wall motion cannot be well-evaluated due to technically difficult study. LVEF is 30%. Compared to prior study from 02/02/2024, the LV systolic function appears to be further reduced. Electronically signed by : Chelsie Hutton MD 08/13/2024 12:32:04
== END 2024-08-13 23:59 | disposition home or self-care (01) ==
LOC: RT 08:55
PROVIDERS: PCP Nurse Practitioner Family; Visit Provider Nurse Practitioner Family
DX: I11.9 Hypertensive heart disease without heart failure (principal); J90 Pleural effusion, not elsewhere classified; I71.22 Aneurysm of the aortic arch, without rupture; E27.8 Other specified disorders of adrenal gland; E04.2 Nontoxic multinodular goiter; I25.10 Atherosclerotic heart disease of native coronary artery without angina pectoris; I42.8 Other cardiomyopathies; J44.9 Chronic obstructive pulmonary disease, unspecified; I25.2 Old myocardial infarction; E78.00 Pure hypercholesterolemia, unspecified; R93.1 Abnormal findings on diagnostic imaging of heart and coronary circulation; R94.2 Abnormal results of pulmonary function studies; R94.39 Abnormal result of other cardiovascular function study; R94.31 Abnormal electrocardiogram [ECG] [EKG]; R91.8 Other nonspecific abnormal finding of lung field; Z95.1 Presence of aortocoronary bypass graft
CPT/HCPCS: 71250; 78452; 93017; 93018; 93308; 94060; 94618; 94640; 94726; 94729; A9502; J2785

== ENCOUNTER 2024-08-29 15:01 | Observation (INO) | payer MEDICARE, SELFPAY ==
[2024-08-29] VITALS (19 sets, daily range): BP systolic 106–191; BP diastolic 59–101; PULSE 60–84; RESP 16–20; TEMP 36.4; O2SAT 92–100; BMI 28.2
--- NOTE | 2024-08-29 07:09 | IR_ITS ---
APPROVED REPORT Patient Location: Outpatient PROCEDURES Left heart catheterization Left ventriculogram Selective coronary angiogram Selective engagement left internal mammary artery to the LAD Selective engagement of the saphenous vein graft to the first obtuse marginal artery Selective engagement of the saphenous vein graft to the right coronary artery Drug-eluting stent deployment to the ostial left main artery extending into the proximal circumflex artery Drug-eluting stent deployment to the second obtuse marginal artery INDICATION Coronary artery disease, History of coronary artery bypass surgery, Ischemic cardiomyopathy ejection fraction 27%, Abnormal Myoview, Informed consent was obtained prior to the procedure. COMPLICATIONS none Estimated Blood Loss: less than 10ml TECHNIQUE One percent lidocaine used to anesthetize the right groin. The right femoral artery was accessed via the Seldinger technique and a 5 Serbian sheath was placed in the right femoral artery. A JL 4, JR4 catheter were used to perform left heart catheterization, left ventriculogram selective coronary angiography as well as selective engagement of the 2 vein grafts and the left internal mammary artery. At the end of the diagnostic angiogram therapeutic Was administered giving a therapeutic ACT and the 5 Serbian sheath exchanged for a 6 Serbian sheath. A JL 4 guide catheter was placed in left main artery followed by wire placed in the second obtuse marginal artery. A 4 mm x 15 mm John frontier stent was placed in left main artery extending to the proximal circumflex artery and deployed at 20 patricia. Excellent angiographic results were obtained. Following this a 2.5 x 38 mm John frontier stent was placed in the proximal mid and distal obtuse marginal artery in a continuous manner and deployed at 20 patricia reducing 2 stenoses to 0%. ANY-3 flow was present before and after the procedure. At the end the procedure the apparatus was removed the groin is reprepped closure change it was removed and hemostasis was achieved using Perclose device patient was transferred to the postop porting in stable condition ANGIOGRAPHIC RESULTS The left main artery Has an ostial proximal greater than 50% stenosis The left anterior descending artery Has an ostial 70% stenosis. Competitive flow was identified from the left internal mammary artery The circumflex artery Is large and dominant gives rise to a large first obtuse marginal artery which has a mid vessel eccentric 80% stenosis. Competitive flow was identified from the vein graft distally. Second obtuse marginal artery is large and has a proximal 50% followed by a concentric mid vessel 80% stenosis. The third obtuse marginal artery is widely patent The right coronary artery Right coronary artery is nondominant yet still large has an ostial 60% stenosis and a distal 90% stenosis with subtotal occlusion. There is competitive flow identified distally from the saphenous vein graft The CROCKETT ventriculogram reveals Severely dilated reduced to 25% The left ventricular end-diastolic pressure 10 mmHg ANAND to LAD patent Saphenous vein graft to OM1 is patent Saphenous graft to distal right coronary artery patent IMPRESSION Severe left main disease supplying an unbypassed severely diseased second obtuse marginal artery and third obtuse marginal artery Successful stenting of an unbypassed left main artery and second obtuse marginal artery severe disease reduced to 0% with 2 noncontiguous drug-eluting stents as described above Patent ANAND to LAD Patent saphenous to OM1 Patent saphenous to distal right coronary Severely reduced ejection fraction Normal LVEDP PLAN 1. Eliquis Plavix and aspirin for 1 month then discontinue aspirin 2. Patient has LV dysfunction with a creatinine of 1.6 and underwent complex angiography and stenting. Patient requires full admission to the hospital with close observation and monitoring 3. Consider LifeVest in the morning 4. LDL less than 55 achieved high intensity statin 5. Repeat labs in the morning due to chronic renal failure 6. Avoidance of tobacco products 7. Standard therapy for systolic heart failure 8. Reevaluate ejection fraction in 90 days to determine if patient is a candidate for AICD placement Electronically signed by : Ryan Rice MD 08/29/2024 13:55:12
[2024-08-29 11:42] LABS: Basophils % 0.6 % (0.1-2.0); Eosinophils # 0.3 Kmm3 (0.0-0.4); Eosinophils % 3.9 % (0.1-12.0); Hematocrit 41.7 % (37.0-47.0); Hemoglobin 13.6 g/dL (12.2-16.2); Immature Granulocytes # 0.02 10^3uL; Immature Granulocytes % 0.3 %; Mean Corpuscular HGB Conc 32.6 g/dL (31.8-35.4); Mean Corpuscular Hemoglobin 27.8 pg (27.0-31.2); Mean Corpuscular Volume 85.1 fl (81-99); Mean Platelet Volume 9.8 fl (7.4-10.4); Monocytes # 0.5 K/mm3 (0.1-1.0); Neutrophils # 4.6 K/mm3 (1.8-7.8); Neutrophils % 72.2 % (37.0-80.0); Nucleated Red Blood Cells # 0 10^3/uL; Nucleated Red Blood Cells % 0 %; Platelet Count 220 K/mm3 (142-424); Red Cell Distribution Width 14.6 % (11.5-17.5); Red Cell Distribution Width-SD 44.7 fL; White Blood Count 6.4 K/mm3 (4.8-10.8)
[2024-08-29 11:43] LABS: Chloride 103 mmol/L (98-107); Potassium 4.6 mmoL/L (3.5-5.1); Sodium 139 mmol/L (136-145)
[2024-08-29 11:46] LABS: Blood Urea Nitrogen 42 mg/dl (7-17); Creatinine Clearance Estimated 41 mL/min (50-200); Estimated Glomerular Filt Rate 32 ml/min (>60); GFR (African American) 39 ML/MIN (>60)
[2024-08-29 11:47] LABS: Anion Gap 16.6 mEq/L (5-15); Calcium 9.9 mg/dl (8.4-10.2); Carbon Dioxide 24 mmol/L (22.0-30.0); Glucose 105 mg/dl (74-100)
[2024-08-29 11:57] LABS: INR 2.18 (0.9-1.1); Prothrombin Time 22.8 seconds (10.1-12.5)
[2024-08-29] MEDS: 0.9 % SODIUM CHLORIDE 500 ML 25 ML IV (12:06)
[2024-08-29] MEDS: LIDOCAINE 1% 10ML MDV 10 ML IJ (12:06)
[2024-08-29] MEDS: HEPARIN 1,000 UNITS/500ML NS (CATH LAB) 3000 UNIT IV (12:06)
[2024-08-29] MEDS: MIDAZOLAM HCL 1MG/ML 5ML VIAL 1 MG IV (12:07)
[2024-08-29] MEDS: FENTANYL 100MCG/2ML VIAL 50 MCG IV (12:07)
[2024-08-29] MEDS: NITROGLYCERIN 800MCG/8ML SYR (CATH LAB) 800 MCG IA (12:07)
[2024-08-29] MEDS: diphenhydrAMINE 50MG/ML VIAL 50 MG IV (12:07)
[2024-08-29] MEDS: HEPARIN 1,000 UNITS/ML 10ML VIAL (CATH LAB) 5000 UNIT IV (12:07)
[2024-08-29] MEDS: VERAPAMIL 2.5MG/ML 2ML VIAL 2.5 MG IV (12:07)
--- NOTE | 2024-08-29 13:32 | P.CONPHA_ITS ---
Pharmacy Intervention Comments: INR WAS DRAWN IN FIRE INVESTIGATION LIEUTENANT. INR WAS 2.18 TODAY. RECOMMENDED PATIENT CONTINUE WITH WARFARIN 2.5 MG ON MON/FRI; 5 MG ON MON/MON/MON/MON/MON.
--- NOTE | 2024-08-29 13:32 | HMH.PHAINT1 ---
Pharmacy Intervention Comments: INR WAS DRAWN IN MIRROR FINISHING MACHINE OPERATOR. INR WAS 2.18 TODAY. RECOMMENDED PATIENT CONTINUE WITH WARFARIN 2.5 MG ON MON/FRI; 5 MG ON MON/MON/MON/MON/MON.
[2024-08-29] MEDS: CLOPIDOGREL 300MG TABLET 600 MG PO (14:11)
[2024-08-29] MEDS: IOPAMIDOL-370 (76%);100ML BOTTLE 130 ML IV (14:51)
[2024-08-29 14:54] LABS: CATHL Activated Clotting Time > 400 SEC (74-125)
--- NOTE | 2024-08-29 15:04 | PC.NURSE ---
Pt arrived to floor with dentures lab technician staff by bed @[id number]
--- NOTE | 2024-08-29 15:17 | P.HP_ITS ---
<Statement entered by Hawk Palma MD - 08/29/24 16:47> Rounded on patient after nurse practitioner. Personally examined and interviewed patient. Agree with exam findings and care plan as documented. History of Present Illness *Admission Date: 08/29/24 *Reason for visit:: Post cath observation *History of present illness: Ms. Hawkins is a 69-year-old female with a past significant history of HFrEF, CAD, COPD, tobacco use disorder, CABG x 3. She was admitted to the medical surgical floor status post heart cath with stent placement for monitoring of post cath site and bleeding risk. [facility] Disclaimer: The information contained in this section may have been updated after the patient was seen, as this information can be updated by other users. Medical History Other cardiomyopathies Penetrating ulcer of aorta HFrEF (heart failure with reduced ejection fraction) CVA (cerebral vascular accident) Non-ST elevation OK (NSTEMI) Acute UTI Pneumonia Acute exacerbation of chronic obstructive pulmonary disease Pulmonary edema Abnormal laboratory test Abnormal electrocardiogram [ECG] [EKG] Syncope and collapse Pneumonia due to COVID-19 virus Head lice infestation Thrombocytopenia Overweight (BMI 25.0-29.9) COVID-19 JIN (acute kidney injury) Gastroenteritis Flank pain Coronary artery calcification seen on CT scan Flank pain, acute Headache Burn of abdomen wall UTI (urinary tract infection) Hyperthyroidism Thyromegaly Nodule of right lung Thyroid nodule Encounter for screening for malignant neoplasm of lung History of smoking 30 or more pack years Dyspnea on exertion COPD (chronic obstructive pulmonary disease) Syncope Abnormal result of cardiovascular function study Frequent PVCs Surgical History History of tubal ligation History of surgery on lower extremity History of hysterectomy History of heart artery stent History of cardiac cath History of cholecystectomy Family History Other COPD (chronic obstructive pulmonary disease) Diabetes Hypertension Social History Smoking Status: Current every day smoker tobacco type: cigarettes packs per day: 1 and e-cigarettes smoking status stop date: 04/03/2022 alcohol intake: never substance use type: denies use current occupational status: unemployed Travel in the last 8 weeks?: None caffeine: Yes Have you lived/traveled outside US in past 30 days?: No Contact w/someone who lives/traveled outside US past 30 days?: No Exposure to someone with infectious disease in past 14 days?: No Do you have a fever (greater than 100.4 F or 38 C)?: No Have you tested positive for COVID-19?: No Exposed to someone with COVID-19 in past 14 days?: No Do you have a sore throat?: No Do you have a cough?: No Do you have any weakness?: No Do you have any diarrhea?: No Are you experiencing any unusual bleeding?: No Do you have any muscle aches/pain?: No Do you have any abdominal pain?: No Are you experiencing loss of taste or smell?: No Other Medical History Have you received the Flu Vaccine for this season: No Have you received the Pneumonia Vaccine: No Review of Systems Review of Systems Review of systems:: pertinent systems reviewed and negative unless documented below *Neurologic Neurologic: Reports abnormal speech (Slurred, stroke 2023 ) Meds Home Medications and Allergies Home Medications ?Medication ?Instructions ?Recorded ?Confirmed ?Type spironolactone 25 mg tablet 50 mg (2 x 25 mg) PO DAILY 3 days 02/02/24 08/29/24 Rx #6 tabs albuterol sulfate 90 mcg/actuation 2 inh inhalation QI D PRN shortness 05/03/24 08/29/24 Rx aerosol inhaler of breath or wheezing 90 day s #8.5 grams aspirin 81 mg tablet,delayed 81 mg PO DAILY 30 days #3 0 tabs 06/20/24 08/29/24 Rx release metoprolol succinate 25 mg 25 mg PO DAILY #90 tabs 08/29/24 Rx tablet,extended release 24 hr warfarin 5 mg tablet 2.5 mg PO MOFR 07/12/2408/05 History warfarin 5 mg tablet 5 mg PO SUTUWETHSA 07/12/24 08/29/24 History atorvastatin 80 mg tablet 80 mg PO DAILY #90 tabs 07/0408/29/24 Rx furosemide 20 mg tablet 20 mg PO DAILY 07/26/2408/05 History clopidogrel 75 mg tablet (Plavix) 75 mg PO DAILY 30 da ys #30 tabs 08/29/24 Rx New Prescriptions to Start Prescriptions: clopidogrel [Plavix] Ryan Rice Allergies Allergy/AdvReac Type Severity Reaction Status Date / Time lisinopril Allergy Mild Verified 08/21/24 15:04 codeine (CODEINE) Allergy Unknown Unknown Verified 08/21/24 15:04 allergy reaction morphine AdvReac Severe Hives Verified 08/21/24 15:04 Exam Data for Last 24 hours Vital signs and Labs for Last 24 Hours: Pulse Resp BP Pulse Ox O2 Del Method 71 20 165/87 H 100 Nasal Cannula 08/29/24 14:20 08/29/24 14:20 08/29/24 14:20 08/29/24 14:20 08/29/24 13:50 Laboratory Results - last 24 hr 08/29/24 11:30: WBC 6.4, RBC 4.90, Hgb 13.6, Hct 41.7, MCV 85.1, MCH 27.8, MCHC 32.6, RDW 14.6, Plt Count 220, MPV 9.8, Neut % (Auto) 72.2, Lymph % (Auto) 16.0, Emery % (Auto) 7.0, Eos % (Auto) 3.9, Baso % (Auto) 0.6, Neut # (Auto) 4.6, Lymph # (Auto) 1.0, Emery # (Auto) 0.5, Eos # (Auto) 0.3, Baso # (Auto) 0.0, Sodium 139, Potassium 4.6, Chloride 103, Carbon Dioxide 24, Anion Gap 16.6 H, BUN 42 H, Creatinine 1.60 H, Estimated Creat Clear 41, Estimated GFR 32 L, Est GFR ( Amer) 39 L, Glucose 105 H, Calcium 9.9 08/29/24 11:41: PT 22.8 H, INR 2.18 H 08/29/24 13:26: Activated Clotting Time > 400 H* I & O for Last 24 hours: Intake & Output 08/26/24 08/27/24 08/28/24 08/29/24 23:59 23:59 23:59 23:59 Weight 79.379 kg Constitutional Constitutional: no acute distress *Routine HEENT Exam Head: Present normocephalic Eye: Present EOMI and PERRL ENT: Present mucous membranes moist *Routine Neck Exam Neck: Present supple and full ROM; Absent JVD *Routine Respiratory Exam Respiratory: Present CTA bilaterally, normal respiratory effort, able to speak in complete sentences and symmetric chest movement *Routine Cardiovascular Exam Cardiovascular: Present RRR *Routine Abdominal Exam Abdominal: Present soft and normoactive bowel sounds; Absent tenderness or distended *Routine Rectal Exam Rectal:: deferred *Routine Genitalia Exam Genitalia:: deferred *Routine Extremities Exam Extremities: Present normal capillary refill; Absent edema *Routine Skin Exam Skin: Present intact and pallor *Routine Neurological Exam Neurological: Present oriented X3 Assessment and Plan *Assessment and plan (1) HFrEF (heart failure with reduced ejection fraction): Status: Acute Category: Medical Code(s): I50.20 - Unspecified systolic (congestive) heart failure (2) Status post left heart catheterization (LHC): Status: Acute Category: Medical Code(s): Z98.890 - Other specified postprocedural states (3) CVA (cerebral vascular accident): Status: Acute Qualifiers: CVA mechanism: unspecified Qualified Code(s): I63.9 - Cerebral infarction, unspecified Category: Medical Code(s): I63.9 - Cerebral infarction, unspecified (4) S/P CABG x 3: Status: Acute Category: Surgical Code(s): Z95.1 - Presence of aortocoronary bypass graft (5) Coronary artery disease: Status: Chronic Qualifiers: Associated angina: without angina Coronary Disease-Associated Artery/Lesion type: [place] artery [place] vs. transplanted heart: [place] heart Qualified Code(s): I25.10 - Atherosclerotic heart disease of [place] coronary artery without angina pectoris Category: Medical Code(s): I25.10 - Atherosclerotic heart disease of [place] coronary artery without angina pectoris (6) Tobacco use disorder, continuous: Status: Chronic Category: Medical Code(s): F17.209 - Nicotine dependence, unspecified, with unspecified nicotine-induced disorders (7) CKD (chronic kidney disease): Status: Acute Category: Medical Code(s): N18.9 - Chronic kidney disease, unspecified Plan This is a 69-year-old female who was admitted by self after discussion with Dr. Rice after heart cath with successful stenting of an unbypassed left main artery and second obtuse marginal artery this afternoon. The patient takes warfarin and is at high risk for post cath bleeding, patient admitted for further monitoring of groin cath site and medical management at discharge. I admitted the patient for further observation and management. Preprocedure INR was 2.18. Patient was a right groin heart cath due to previous CABG. Patient also has chronic kidney disease, baseline creatinine 1.3 preop creatinine 1.6. #HFrEF #Status post LHC #Status post CABG x 3 #CAD ?Patient had echo in 01/2024 showed EF of 30%. Patient has been wearing a LifeVest since that time. ?Patient had 2 stents placed successfully today in the [employer]. Right groin site clean dry and intact. ?Patient placed on cardiac telemetry for close monitoring. ?CBC, CMP, lipid panel, and PT/INR ordered for the a.m. ?Will initiate DAPT therapy, Plavix and aspirin. ?Resume metoprolol 25 mg daily, atorvastatin 80 mg daily. ?Patient takes Lasix 20 mg daily and spironolactone 50 mg daily per her MAR. Will discuss with cardiology tomorrow. #CVA ?Per daughter patient had CVA at the end of last year, has right-sided deficits in her hand and occasional slurred speech. Patient is resting with eyes closed after heart cath procedure at this time. #CKD ?Creatinine 1.6, GFR 32. Patient has known chronic kidney disease we will continue to monitor post cath renal effects. Full code Cardiac diet VTE contraindicated Bed rest per protocol, ambulate as tolerated after post-cath restrictions
--- NOTE | 2024-08-29 16:10 | PC.NURSE ---
pt on continuous heart monitor. lab assistant RN stated pt has a life vest but didn't need to put it on at this moment as long as the pt has a heart monitor on. Notified ADMINISTRATIVE SERVICES COORDINATOR.
--- NOTE | 2024-08-29 18:17 | PC.NURSE ---
pt is A&Ox4. Vital signs stable tolerating room air. Pt is s/p left heart cath. right groin cath site c/d/i. pt sitting up in bed eating supper at this time with no further needs voiced. call light within reach. bed alarm in place
--- NOTE | 2024-08-29 21:52 | P.CONPHA_ITS ---
Pharmacy Intervention Comments: HOME MEDICATION LIST VERIFIED USING LSIT FROM [facility]
--- NOTE | 2024-08-29 21:52 | HMH.PHAINT1 ---
Pharmacy Intervention Comments: HOME MEDICATION LIST VERIFIED USING LSIT FROM [facility]
[2024-08-30] VITALS: BP 122/61; PULSE 70; PULSE 74; RESP 18; TEMP 36.3; O2SAT 99
--- NOTE | 2024-08-30 03:50 | PC.NURSE ---
Patient is alert and oriented x4. She was observed to have eyes closed, even and unlabored respirations, and no apparent distress throughout the majority of the night. Post-angio assessments and vital signs were completed this shift. Patient's right femoral cath site was assessed; dressing remains clean, dry, and intact. No drainage or bleeding noted thus far, pulses remain +2. Skin temperature at the site is consistent with surrounding areas. Mild weakness noted to right arm, residual deficit. Small bruises with scabs were noted to her left inner wrist. Upon auscultation of her lungs, diminished sounds were heard bilaterally. Normal sinus rhythm on telemetry. Patient has tolerated consuming multiple snacks and Dr Pepper soda very well this shift. She has ambulated independently with standby assistance in her room/to the bathroom without difficulties or unsteadiness. At this time, the patient is resting in bed without any further complaints. No new needs thus far. Bed alarm on. Call light within reach.
[2024-08-30 04:00] VITALS: BP 135/80; PULSE 70; PULSE 73; RESP 18; TEMP 36.6; O2SAT 95; BMI 29.1
[2024-08-30 06:47] LABS: Chloride 107 mmol/L (98-107); Potassium 4.3 mmoL/L (3.5-5.1); Sodium 139 mmol/L (136-145)
[2024-08-30 06:49] LABS: Blood Urea Nitrogen 40 mg/dl (7-17); Creatinine Clearance Estimated 38 mL/min (50-200); Estimated Glomerular Filt Rate 28 ml/min (>60); GFR (African American) 34 ML/MIN (>60)
[2024-08-30 06:50] LABS: Alanine Aminotransferase 14 U/L (12-78); Albumin/Globulin Ratio 1.3 (1.1-1.8); Alkaline Phosphatase 86 U/L (38-126); Anion Gap 14.3 mEq/L (5-15); Aspartate Amino Transferase 25 U/L (14-36); Bilirubin,Total 0.4 mg/dl (0.2-1.3); Calcium 9.2 mg/dl (8.4-10.2); Carbon Dioxide 22 mmol/L (22.0-30.0); Cholesterol 128 mg/dl (140-200); Glucose 112 mg/dl (74-100); HDL Cholesterol 39 mg/dl (40-60); Triglycerides 116 mg/dl (30-150); VLDL Cholesterol 23 mg/dL (0-40)
[2024-08-30 06:51] LABS: Chol/HDL Ratio 3.3 (1-3.5)
[2024-08-30 07:01] LABS: Direct LDL Cholesterol 36.11 mg/dL (100-129)
[2024-08-30 07:33] VITALS: BP 126/67; PULSE 79; RESP 18; TEMP 36.6; O2SAT 97
[2024-08-30] MEDS: CLOPIDOGREL 75MG TAB 75 MG PO (08:03)
[2024-08-30] MEDS: ASPIRIN EC 81MG TABLET 81 MG PO (08:03)
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
[2024-08-30] MEDS: SPIRONOLACTONE 25MG TABLET 25 MG PO (09:19)
[2024-08-30] MEDS: METOPROLOL SUCCINATE XL 25MG TABLET 25 MG PO (09:20)
[2024-08-30] MEDS: FUROSEMIDE 20MG TABLET 20 MG PO (09:20)
--- NOTE | 2024-08-30 09:53 | HMH.PTEV ---
Physical Therapy Evaluation Rehab PT IP Evaluation Start: 08/29/24 15:13 Freq: .once Status: Active Protocol: Document 08/30/24 09:47 JOVITA (Rec: 08/30/24 09:53 JOVITA [id number]) Subjective/History History History Per H&P: Ms. Hawkins is a 69-year-old female with a past significant history of HFrEF, CAD, COPD, tobacco use disorder, CABG x 3. She was admitted to the medical surgical floor status post heart cath with stent placement for monitoring of post cath site and bleeding risk. Subjective Subjective PLOF: Pt reports she is IND with all functional mobility. I have a walker but I don't use it HOME: Lives at a [facility] independent living apartment Available assistance: IND living. [facility]termittent [facility] staff. New diagnosis of No cancer in past 12 months? [facility] How much help from another person do you currently need... Turning from your None back to your side while in a flat bed without using bedrails? Moving from lying on None back to sitting on the side of a flat bed without using bedrails? Moving to and from a None bed to a chair ( including a wheelchair)? Standing up from a None chair using your arms? (e.g., wheelchair, bedside chair) Walking in hospital None room? Climbing 3-5 steps None with a railing? Mobility Score 24 Mobility Level [facility] Mobility 8 Walk 250 feet or more Mobility Calculator Rehab PT IP Eval Objective Appearance Patient Behavior Appropriate,Cooperative Patient Orientation Person,Place Difficulty following none instructions Speech Pattern Clear Ambulation Patient Able to Yes Ambulate Ambulation Observation IP General Gait No Deviations/Normal Pattern Observation Ambulation Distance 30 (feet) Ambulation Assistive None Device Ambulation Ability Independent Balance Ability to Arise Able, uses arms to help Sitting Balance Steady, safe Standing Balance Steady, wide stance Dynamic Sitting Good Balance Ability Dynamic Standing Good Balance Ability Transfers Bed Transfer Ability Independent Sit to Stand Bed Independent Transfer Ability Rehab PT IP prob,goals,plan Problems Date of Evaluation: 08/30/24 Rehab Potential Rehab Potential Innapropriate for Skilled Therapy Discharge Plan PT Discharge Plan Pt most appropriate to d/c home when deemed medically necessary d/t current level of mobility, home set-up, and staff support. Pt not appropriate for skilled acute care PT at this time d/t pt?s mobility being at baseline. Eval Complexity Eval Charge Codes 91253 - Moderate Complexity PHYSICIAN CERTIFICATION: I certify the specified therapy services for Eddi Hawkins are required, authorized, and reviewed every 30 days.
--- NOTE | 2024-08-30 11:44 | P.DS_ITS ---
<Statement entered by Hawk Palma MD - 09/02/24 17:08> Rounded on patient after nurse practitioner. Personally examined and interviewed patient. Agree with exam findings and care plan as documented. General Admission date:: 08/29/24 Discharge date: 08/30/24 HPI HPI HPI: Ms. Hawkins is a 69-year-old female with a past significant history of HFrEF, CAD, COPD, tobacco use disorder, CABG x 3. She was admitted to the medical surgical floor status post heart cath with stent placement for monitoring of post cath site and bleeding risk. Hospital Course Hospital Course Hospital Course: Ms. Hawkins is a 69-year-old female who was admitted from the cathlab post left heart cath with stent placement. She has a history of a CABG x 3, HFrEF, CAD, COPD, CVA, CKD, tobacco use disorder. Patient takes warfarin and preprocedure INR was 2.18. Patient was a right groin heart cath due to previous CABG. Patient also has chronic kidney disease, baseline creatinine 1.3 preop creatinine 1.6. #HFrEF #Status post LHC #Status post CABG x 3 #CAD ? Patient had echo in 01/2024 showed EF of 30%. Patient has been wearing a LifeVest since that time, patient recommended to continue wearing LifeVest at this time until repeat echo in 4 to 6 weeks. ? Patient had 2 stents placed successfully in the [employer]. Right groin site clean dry and intact. Discussed restrictions. ? Patient monitored with cardiac telemetry, normal sinus rhythm noted. ? Patient started on DAPT therapy, Plavix 75 mg daily and aspirin 81 mg daily. ? Resume metoprolol 25 mg daily, atorvastatin 80 mg daily, lasix 20 mg daily, and spironolactone 50 mg daily. ? Cardiology recommended Eliquis 5 mg twice daily, patient unable to afford (insurance does not cover). Patient will remain on warfarin therapy. ? Cardiology follow-up in 1 to 2 weeks. #CVA ? Recent CVA treated at , -2024, patient on warfarin therapy. #CKD ? Patient has known chronic kidney disease, initial BUN was 42, creatinine 1.6. BUN 40, creatinine 1.8 at discharge. Total time spent on discharge 34 minutes in counseling, documentation, chart review, and direct care with patient. Exam Data for Last 24 hours Vital signs and Labs for Last 24 Hours: Temp Pulse Resp BP Pulse Ox O2 Del Method 97.8 F 79 18 126/67 97 Room Air 08/30/24 07:33 08/30/24 07:33 08/30/24 07:33 08/30/24 07:33 08/30/24 07:33 08/30/24 07:33 Laboratory Results - last 24 hr 08/29/24 11:30: WBC 6.4, RBC 4.90, Hgb 13.6, Hct 41.7, MCV 85.1, MCH 27.8, MCHC 32.6, RDW 14.6, Plt Count 220, MPV 9.8, Neut % (Auto) 72.2, Lymph % (Auto) 16.0, [place] % (Auto) 7.0, Eos % (Auto) 3.9, Baso % (Auto) 0.6, Neut # (Auto) 4.6, Lymph # (Auto) 1.0, [place] # (Auto) 0.5, Eos # (Auto) 0.3, Baso # (Auto) 0.0, Sodium 139, Potassium 4.6, Chloride 103, Carbon Dioxide 24, Anion Gap 16.6 H, BUN 42 H, Creatinine 1.60 H, Estimated Creat Clear 41, Estimated GFR 32 L, Est GFR ( Amer) 39 L, Glucose 105 H, Calcium 9.9 08/29/24 11:41: PT 22.8 H, INR 2.18 H 08/29/24 13:26: Activated Clotting Time > 400 H* 08/30/24 05:43: Sodium 139, Potassium 4.3, Chloride 107, Carbon Dioxide 22, Anion Gap 14.3, BUN 40 H, Creatinine 1.80 H, Estimated Creat Clear 38, Estimated GFR 28 L, Est GFR ( Amer) 34 L, Glucose 112 H, Calcium 9.2, Total Bilir ubin 0.4, AST 25, ALT 14, Alkaline Phosphatase 86, Total Protein 7.0, Albumin 4.0, Globulin 3.0, Albumin/Globulin Ratio 1.3, Triglycerides 116, Cholesterol 128 L, LDL Cholesterol Direct 36.11 L, VLDL Cholesterol 23, HDL Cholesterol 39 L , Cholesterol/HDL Ratio 3.3 08/30/24 06:30: PT 23.0 H, INR 2.20 H I & O for Last 24 hours: Intake & Output 06/24/25 06/25/25 06/26/25 06/27/25 23:59 23:59 23:59 23:59 Intake Total 822 / 822 Output Total 200 / 200 Balance 622 / 622 Weight 79.379 kg 82.191 kg Results Data Completed and Pending Labs on day of discharge: Labs from last 24 hours 08/30/24 08/30/24 08/29/24 06:30 05:43 13:26 WBC RBC Hgb Hct MCV MCH MCHC RDW Plt Count MPV Neut % (Auto) Lymph % (Auto) [place] % (Auto) Eos % (Auto) Baso % (Auto) Neut # (Auto) Lymph # (Auto) [place] # (Auto) Eos # (Auto) Baso # (Auto) PT 23.0 H INR 2.20 H Activated Clotting Time > 400 H* Sodium 139 Potassium 4.3 Chloride 107 Carbon Dioxide 22 Anion Gap 14.3 BUN 40 H Creatinine 1.80 H Estimated Creat Clear 38 Estimated GFR 28 L Est GFR ( Amer) 34 L Glucose 112 H Calcium 9.2 Total Bilirubin 0.4 AST 25 ALT 14 Alkaline Phosphatase 86 Total Protein 7.0 Albumin 4.0 Globulin 3.0 Albumin/Globulin Ratio 1.3 Triglycerides 116 Cholesterol 128 L LDL Cholesterol Direct 36.11 L VLDL Cholesterol 23 HDL Cholesterol 39 L Cholesterol/HDL Ratio 3.3 08/29/24 08/29/24 11:41 11:30 WBC 6.4 RBC 4.90 Hgb 13.6 Hct 41.7 MCV 85.1 MCH 27.8 MCHC 32.6 RDW 14.6 Plt Count 220 MPV 9.8 Neut % (Auto) 72.2 Lymph % (Auto) 16.0 [place] % (Auto) 7.0 Eos % (Auto) 3.9 Baso % (Auto) 0.6 Neut # (Auto) 4.6 Lymph # (Auto) 1.0 [place] # (Auto) 0.5 Eos # (Auto) 0.3 Baso # (Auto) 0.0 PT 22.8 H INR 2.18 H Activated Clotting Time Sodium 139 Potassium 4.6 Chloride 103 Carbon Dioxide 24 Anion Gap 16.6 H BUN 42 H Creatinine 1.60 H Estimated Creat Clear 41 Estimated GFR 32 L Est GFR ( Amer) 39 L Glucose 105 H Calcium 9.9 Total Bilirubin AST ALT Alkaline Phosphatase Total Protein Albumin Globulin Albumin/Globulin Ratio Triglycerides Cholesterol LDL Cholesterol Direct VLDL Cholesterol HDL Cholesterol Cholesterol/HDL Ratio DS: Diagnosis Discharge Diagnosis (1) Status post left heart catheterization (LHC): Status: Acute Code(s): Z98.890 - Other specified postprocedural states (2) CKD (chronic kidney disease): Status: Acute Code(s): N18.9 - Chronic kidney disease, unspecified Qualifiers: Chronic kidney disease stage: stage 3 (moderate) Chronic kidney disease stage 3 subtype: stage 3b (GFR 30-44) Qualified Code(s): N18.32 - Chronic kidney disease, stage 3b (3) LV dysfunction: Status: Acute Code(s): I51.9 - Heart disease, unspecified (4) HFrEF (heart failure with reduced ejection fraction): Status: Acute Code(s): I50.20 - Unspecified systolic (congestive) heart failure (5) Cardiomyopathy: Status: Acute Code(s): I42.9 - Cardiomyopathy, unspecified Qualifiers: Cardiomyopathy type: other Qualified Code(s): I42.8 - Other cardiomyopathies Meds Home Medications and Allergies Home Medications ?Medication ?Instructions ?Recorded ?Confirmed ?Type albuterol sulfate 90 mcg/actuation 2 inh inhalation QI D PRN shortness 05/03/24 08/29/24 Rx aerosol inhaler of breath or wheezing 90 day s #8.5 grams aspirin 81 mg tablet,delayed 81 mg PO DAILY 30 days #3 0 tabs 06/20/24 08/29/24 Rx release metoprolol succinate 25 mg 25 mg PO DAILY #90 tabs 08/29/24 Rx tablet,extended release 24 hr warfarin 5 mg tablet 2.5 mg PO MOFR 07/12/2408/05 History warfarin 5 mg tablet 5 mg PO SUTUWETHSA 07/12/24 08/29/24 History atorvastatin 80 mg tablet 80 mg PO DAILY #90 tabs 07/0408/29/24 Rx furosemide 20 mg tablet 20 mg PO BID 07/26/24 History clopidogrel 75 mg tablet (Plavix) 75 mg PO DAILY 30 da ys #30 tabs 08/29/24 Rx spironolactone 25 mg tablet 25 mg PO DAILY 08/29/24 History New Prescriptions to Start Prescriptions: clopidogrel [Plavix] Ryan Rice Allergies Allergy/AdvReac Type Severity Reaction Status Date / Time lisinopril Allergy Mild Verified 08/21/24 15:04 codeine (CODEINE) Allergy Unknown Unknown Verified 08/21/24 15:04 allergy reaction morphine AdvReac Severe Hives Verified 08/21/24 15:04 Discharge Plan Disposition Patient Disposition: Home, Self-Care Condition: Fair Follow up Plan Follow up with: Meek Lucio APRN [Primary Care Provider, [facility]] - Enter time for follow up Referral Note: Please call office Monday for follow up appointment Ryan Rice MD [Staff Physician, Cardiology] - 09/05/24 3:00 pm Prescriptions/Medication Reconciliation: New clopidogrel [Plavix] 75 mg Tablet 75 mg PO DAILY 30 Days Qty: 30 6RF Continued albuterol sulfate 90 mcg/actuation HFA aerosol inhaler 2 inh inhalation QID PRN (Reason: shortness of breath or wheezing) 90 Days Qty: 8.5 2RF furosemide 20 mg tablet 20 mg PO BID aspirin 81 mg tablet,delayed release (DR/EC) 81 mg PO DAILY 30 Days Qty: 30 0RF metoprolol succinate 25 mg tablet extended release 24 hr 25 mg PO DAILY Qty: 90 3RF atorvastatin 80 mg tablet 80 mg PO DAILY Qty: 90 3RF warfarin 5 mg Tablet 2.5 mg PO MOFR warfarin 5 mg tablet 5 mg PO SUTUWETHSA Rx Instructions: Take 1 tablet by mouth once daily in the evening. spironolactone 25 mg tablet 25 mg PO DAILY Problem Reconciliation Problems Reviewed?: Yes Patient Discharge Instructions ACTIVITY: Continue current activity DIET: continue same diet Patient Instructions: DI for Cardiac Catheterization, DI for Moderate Sedation, Exercise-based Cardiac Rehabilitation May Decrease Risk of and Future Heart Procedures, DI for Post-Surgical Bleeding, Coumadin Vitamin K/ Diet Print Language: Slovenian Providers Primary Care Provider: Meek Lucio Admit Provider: Hawk Palma Attending Provider: Hawk Palma
--- NOTE | 2024-09-02 12:51 | SW/DCPLANNER ---
Spoke with patient's POA on the phone. Patient POA stated that she is doing well. Patient's POA stated that she is aware of her upcoming appointments. Patient's POA stated that they were able to get her medicine picked up from clinic pharmacy. Patient's POA stated that she has no concerns or questions at this time. Mone Morataya
== END 2024-08-30 13:14 | disposition home or self-care (01) ==
LOC: 2ND 15:01
PROVIDERS: Internal Medicine; Admitting Provider Internal Medicine Adolescent Medicine; PCP Nurse Practitioner Family; Visit Provider Internal Medicine Adolescent Medicine
PROC: 4A023N7 Measurement of Cardiac Sampling and Pressure, Left Heart, Percutaneous Approach (ICD-10-PCS; CPT 93452; principal; 2024-08-29 10:45)
DX: I13.0 Hypertensive heart and chronic kidney disease with heart failure and stage 1 through stage 4 chronic kidney disease, or unspecified chronic kidney disease (principal); I50.21 Acute systolic (congestive) heart failure; I25.10 Atherosclerotic heart disease of native coronary artery without angina pectoris; N18.32 Chronic kidney disease, stage 3b; J44.9 Chronic obstructive pulmonary disease, unspecified; E78.5 Hyperlipidemia, unspecified; I63.9 Cerebral infarction, unspecified; E05.90 Thyrotoxicosis, unspecified without thyrotoxic crisis or storm; I42.8 Other cardiomyopathies; E03.9 Hypothyroidism, unspecified; F17.210 Nicotine dependence, cigarettes, uncomplicated; F17.290 Nicotine dependence, other tobacco product, uncomplicated; I25.2 Old myocardial infarction; Z82.49 Family history of ischemic heart disease and other diseases of the circulatory system; Z95.1 Presence of aortocoronary bypass graft; Z98.890 Other specified postprocedural states; Z88.8 Allergy status to other drugs, medicaments and biological substances; Z88.5 Allergy status to narcotic agent; Z95.5 Presence of coronary angioplasty implant and graft; Z79.82 Long term (current) use of aspirin; Z79.01 Long term (current) use of anticoagulants; Z79.899 Other long term (current) drug therapy; Z86.73 Personal history of transient ischemic attack (TIA), and cerebral infarction without residual deficits; Z90.49 Acquired absence of other specified parts of digestive tract; Z90.710 Acquired absence of both cervix and uterus; Z98.51 Tubal ligation status; Z83.3 Family history of diabetes mellitus; Z56.0 Unemployment, unspecified; Z79.02 Long term (current) use of antithrombotics/antiplatelets
CPT/HCPCS: 36415; 80048; 80053; 80061; 85025; 85347; 85610; 93458; 96361; 96374; 96375; 96376; 97162; 97166; 99152; 99153; C1725; C1760; C1769; C1874; C1894; G0378; J1200; J1644; J2003; J3010; J7040; Q9967

== ENCOUNTER 2024-09-27 10:24 | Outpatient (CLI) | payer MEDICARE, SELFPAY ==
--- OUTSIDE RECORDS SUMMARY | 2024-09-27 09:40 | XMS_ITS | Encounter Summary ---
Author Organization [facility] Address [address] [place] [address] Care Team Providers Care Check Cashier Name Role Phone Meek Lucio APRN Primary Care Provider [phone] Nico Hayward MD Unavailable [phone] Ryan Rice MD Unavailable [phone] Reason for Referral * Consultation (Routine) - Authorized Specialty Diagnoses / Procedures Referred By Contjeff t Referred To Contact Diagnoses JIN (acute kidney injury) ([facility]) Gabriella Brand APRN [address] [facility] [address] [place] [address] Phone: tel: fax: Referral ID Status Reason Start Date Expiration Date V isits Requested Visits Authorized [id number] Authorized 09/27/2024 03/29/2026 1 1 Reason for Visit * Consultation (Routine) - Closed Specialty Diagnoses / Procedures Referred By Jeff staton Referred To Contact Nephrology Diagnoses Disorder of kidney and ureter, unspecified Benedict Porter MD [address] [place] [address] Phone: tel: fax: [facility] Nephrology, Bone & Mineral Metabolism [address] [facility], [address] [place] [address] Phone: tel: fax: Referral ID Status Reason Start Date Expiration Date V isits Requested Visits Authorized [id number] Closed Specialty Services Required 08/05/2024 02/04/2026 1 1 Encounter Details Date Type Department Care Team ([facility] st Contact Info) Description 09/27/2024 9:40 AM EDT Office Visit [facility] [address] [place] [address] Gabriella Brand, BERNARDINO [address] [facility] [address] [place] [phone] JIN (acute kidney injury) (CMS/HCC) (Primary [...] any time in the past 12 m [facility], were you homeless or living in a residential (including now)? No 05/17/2024 Utilities Answer Date [...] Labs scanned in to media tab of [employer] from an outside facility. Labs completed on [...] with concurrent aldactone use. Discussed case with [facility] Cardiology. Patient with low renal [...] Info) Description 11/20/2024 4:00 PM EDT Consult [facility] [address], [address] [place] [address] Chris Gramajo MD [address] [place] [address] Scheduled Orders Name Type Priority Associated Diagnoses Orde r Schedule CBC W/O Differential Lab Routine JIN (acute kidney injury) ([facility]) Expected: 09/27/2024 (Approximate), Expires: 03/30/2026 Protein, Random, Urine with Creatinine Lab Routine JIN (acute kidney injury) ([facility]) Expected: 09/27/2024 (Approximate), Expires: 03/30/2026 PTH Intact Total Lab Routine JIN (acute kidney injury) ([facility]) Stage 3 chronic kidney disease, unspecified whether stage 3a or 3b CKD ([facility]) Expected: 09/27/2024 (Approximate), Expires: 03/30/2026 Renal Function Panel, Plasma Lab Routine JIN (acute kidney injury) ([facility]) Expected: 09/27/2024 (Approximate), Expires: 03/30/2026 Urinalysis with reflex microscopic (Culture NOT Included) Lab Routine JIN (acute kidney injury) ([facility]) Stage 3 chronic kidney disease, unspecified whether stage 3a or 3b CKD ([facility]) Expected: 09/27/2024 (Approximate), Expires: 03/30/2026 Vitamin D 25 Hydroxy Lab Routine JIN (acute kidney injury) ([facility]) Stage 3 chronic kidney disease, unspecified whether stage 3a or 3b CKD ([facility]) Expected: 09/27/2024 (Approximate), Expires: 03/30/2026 Scheduled Referrals Name Type Priority Associated Diagnoses Order Schedule Follow Up Nephrology Outpatient Referral Routine JIN (acute kidney injury) ([facility]) Expected: 12/28/2024 (Approximate), Expires: 10/28/2025 documented as of this encounter Visit Diagnoses Diagnosis JIN (acute kidney injury) ([facility])- Primary Acquired solitary kidney Acquired absence of kidney Stage 3 chronic kidney disease, unspecified whether stage 3a or 3b CKD ([facility]) Essential hypertension Unspecified essential hypertension Chronic kidney disease-mineral and bone disorder documented in this encounter Additional Health Concerns Assessment Noted Time A fall risk assessment has been complete d for the patient 05/05/2022 2:35 PM EST A Body Mass Index follow-up plan has been documented for the patient 09/27/2024 10:19 AM EDT documented as of this encounter Care Teams Check Cashier Relationship Specialty Start Date End Date Meek Lucio APRN [address] [place] [address] PCP - General 05/17/24 Nico Hayward MD [address] [place] [address] 05/15/24 Ryan Rice MD [address] [place] [address] Referring Physician Cardiology 03/21/22 documented as of this encounter
--- OUTSIDE RECORDS SUMMARY | 2024-09-27 10:27 | XMS_ITS | Encounter Summary ---
Author Organization [facility] Address [address] [place] [address] Care Team Providers Care Combination Man Name Role Phone Nico Hayward MD Primary Care Provider [phone] Pcp, No Primary Care Provider UnavailMeek Grimes APRN Primary Care Provider [phone] Nico Hayward MD Unavailable [phone] Ryan Rice MD Unavailable [phone] Encounter Details Date Type Department Care Team (Late st Contact Info) Description 02/22/2022 Orders Only External Location [address] [place] [address] Ryan Rice MD [address] [address] Social History Tobacco Use Types [...] Info) Description 11/20/2024 4:00 PM EDT Consult [place] [facility] [address] [place] [address] Chris Gramajo MD [address] [place] [address] documented as of this encounter [...] on filedocumented in this encounter Care Teams Combination Man Relationship Specialty Start Date End Date Nico Hayward MD [address] [place] [address] PCP - General 07/17/20 05/14/24 [place] [address] PCP - General Family Medicine 05/15/24 05/16/24 Meek Lucio APRN [address] [place] [address] PCP - General 05/17/24 Nico Hayward MD [address] [place] [address] 05/15/24 Ryan Rice MD [address] [place] [address] Referring Physician Cardiology 03/21/22 documented as of this encounter
--- OUTSIDE RECORDS SUMMARY | 2024-09-27 10:27 | XMS_ITS | Encounter Summary ---
Author Organization [facility] Address [address] [place] [address] Care Team Providers Care Zanjero Name Role Phone Nico Hayward MD Primary Care Provider + [phone] Pcp, No Primary Care Provider UnavailMeek Grimes APRN Primary Care Provider [phone] Nico Hayward MD Unavailable [phone] Ryan Rice MD Unavailable [phone] Encounter Details Date Type Department Care Team (Late st Contact Info) Description 02/22/2022 Orders Only External Location [address] [place] [address] Ryan Rice MD [address] [address] Social History Tobacco Use Types [...] Consult [place] [facility] [address], [address] [place] [address] Chris Gramajo MD [address] [place] [address] documented as of this encounter [...] on filedocumented in this encounter Care Teams Zanjero Relationship Specialty Start Date End Date Nico Hayward MD [address] [place] [address] PCP - General 07/17/20 05/14/24 Pcp, Vanessa [address] [place] [address] PCP - General Family Medicine 05/15/24 05/16/24 Meek Lucio APRN [address] [place] [address] PCP - General 05/17/24 Nico Hayward MD [address] [place] [address] 05/15/24 Ryan Rice MD [address] [place] [address] Referring Physician Cardiology 03/21/22 documented as of this encounter
--- OUTSIDE RECORDS SUMMARY | 2024-09-27 10:27 | XMS_ITS | Encounter Summary ---
Author Organization [facility] Address [address] [place] [address] Care Team Providers Care Control Systems Engineer Name Role Phone Meek Lucio APRN Primary Care Provider [phone] Nico Hayward MD Unavailable [phone] Ryan Rice MD Unavailable [phone] Encounter Details Date Type Department Care Team (Latest Contact Info) Description 09/27/2024 Travel Social History Tobacco Use Types Packs/Day [...] any time in the past 12 m [facility], were you homeless or living in a [place] [facility] [place] (including now)? No 05/17/2024 Utilities Answer Date [...] Consult [place] [facility] [address], [address] [place] [address] Chris Gramajo MD [address] [place] [address] documented as of this encounter Visit Diagnoses Not on filedocumented in this encounter Additional Health Concerns Assessment Noted Time A fall risk assessment has been complete d for the patient 05/05/2022 2:35 PM EST A Body Mass Index follow-up plan has been documented for the patient 09/27/2024 10:19 AM EDT documented as of this encounter Care Teams Control Systems Engineer Relationship Specialty Start Date End Date Meek Lucio APRN [address] [place] [address] PCP - General 05/17/24 Nico Hayward MD [address] [place] [address] 05/15/24 Ryan Rice MD [facility] [address] [address] Referring Physician Cardiology 03/21/22 documented as of this encounter
--- OUTSIDE RECORDS SUMMARY | 2024-09-27 10:27 | XMS_ITS | Clinical Summary ---
Author Organization [facility] Address [address] [place] [address] Care Team Providers Care Improvement Nurse Name Role Phone eMek Lucio APRN Primary Care Provider [phone] Nico Hayward MD Unavailable [phone] Ryan Rice MD Unavailable [phone] Allergies Active Allergy Reactions Criticality Noted Date [...] Medium 11/30/2010 hives Morphine Hallucinations Medium 05/15/2024 [facility] Hives Medium 09/09/2019 Medications Trelegy Ellipta 100-62.5-25 MCG/ACT aerosol powder INHALE [...] in the evening. 60 tablet 2 5 Active spironolactone (Aldactone) 25 MG tablet Take 1 tablet (25 mg) by mouth daily. 30 each 2 5 Active valsartan (Diovan) 80 MG tablet Take 1 tablet by mouth daily. Active clopidogrel (Plavix) 75 MG tablet Take 1 tablet by mouth daily. Active warfarin (Coumadin) 2.5 MG tablet Take 1 tablet by mouth daily. Takes 2.5 Monday and Monday Active warfarin (Coumadin) 5 MG tablet Take 1 tablet by mouth daily. Take as directed per After Visit Summary. Active aspirin 81 MG EC tablet Take 81 mg by mouth 1 (one) time each day. 09/28/19 25 Discontinue d(Per Patient Report) acetaminophen (Tylenol) 325 MG tablet Take 2 tablets (650 mg total) by mouth every 6 (six) hours if needed for pain. 100 tablet 3 09/28/19 25 Discontinue d(Per Patient Report) methocarbamol (Robaxin) 500 MG tablet Take 1 tablet (500 mg total) by mouth 4 (four) times a day if needed for muscle spasms for up to 10 days. 40 tablet 3 09/28/19 25 Discontinue d(Per Patient Report) metoprolol tartrate (Lopressor) 25 MG tablet Take 3 tablets (75 mg total) by mouth 2 (two) times a day. 180 tablet 2 3 09/28/19 25 Discontinue d(Per Patient Report) apixaban (Eliquis) 5 MG tablet Take 1 tablet (5 mg) by mouth in the morning and 1 tablet (5 mg) before bedtime. 60 tablet 2 09/28/19 25 Discontinue d(Per Patient Report) Active Problems Problem Noted Date Diagnosed Date [...] Resume home medications as appropriate History of CO (myocardial infarction) 05/15/2024 Overview (05/15/2024): Resume home medications as appropriate History of CVA (cerebrovascular accident) 2024 Overview (05/15/2024): Complicates all aspects of care. Unsure deficits Paroxysmal atrial fibrillation 05/15/2024 Overview (05/15/2024): Rate/rhythm control strategy with beta blockers Thromboembolic risk as assessed by [id number] Anticoagulation plan pending Would keep electrolytes at [...] Diagnosed Date Resolved Date Physical deconditioning 04/12/2022 02/11/2022 Overview (04/12/2022): Encourage ambulation - PT/OT - [...] Encounters Date Type Department Care Team Description 09/27/2024 9:40 AM EDT Office Visit [facility] [address] [place] [address] Gabriella Brand APRN JIN (acute kidney injury) ([facility]) (Primary Dx); Acquired solitary kidney; Stage 3 chronic kidney disease, unspecified whether stage 3a or 3b CKD ([facility]); Essential hypertension; Chronic kidney disease-mineral and bone disorder 09/27/2024 Travel 08/07/2024 Orders Only [facility] [address] [place], [place] [address] Nannette Leslie JIN (acute kidney injury) ([facility]) (Primary Dx); Vitamin D insufficiency from Last 3 Months Immunizations Immunization Administration [...] any time in the past 12 m [facility], were you homeless or living in a [facility] (including now)? No 05/17/2024 Utilities Answer Date Recorded In the past 12 months has e electric, gas, oil, or water company [...] Pulse 87 09/27/2024 9:30 AM EDT Temperature 36.8 C (98.3 F) 05/20/2024 8:00 AM EDT Respiratory Rate 16 09/27/2024 9:30 AM EDT Oxygen Saturation 95% 09/27/2024 9:30 AM EDT Inhaled Oxygen Concentration - - Weight 84.8 kg (187 lb) 09/27/2024 9:30 AM EDT Height 167.6 cm (5' 6 ) 09/27/2024 9:30 AM EDT Body Mass Index 30.18 09/27/2024 9:30 AM EDT Plan of Treatment Upcoming Encounters Date Type Department Care Team (Late st Contact Info) Description 11/20/2024 4:00 PM EDT Consult [place] [facility] [address], [address] [place] [address] Chris Gramajo MD [address] [place] [address] Health Maintenance Due Date Last Done Comments [facility]-Bone Density Scan 1954 [facility]-Depression Screening 1954 [facility]-Medicare Annual Wellness (AWV) 1955 [facility]-Infant/Child/Adol SDOH Screenings 1954 Diabetes: Dental Exam 1964 CT Colonography 05/25/1999 Colonoscopy 05/25/1999 FIT-DNA 05/25/1999 FIT 05/25/1999 FOBT 05/25/1999 Sigmoidoscopy 05/25/1999 [facility]-Colorectal Cancer Screening 05/25/1999 [facility]-Breast Cancer Screening 2004 [facility]-Zoster Vaccines (1 of 2) 2004 [facility]-DTaP,Tdap,and Td Vaccines (1 - Tdap) 12/01/2010 11/30/2010 [facility]-Pneumococcal Vaccine: 50+ Years (2 of 2 - PCV) 12/08/2012 12/09/2011 [facility]-RSV Vaccine: 60+ Years or (1 - Risk 60-74 years 1-dose series) 2014 ZDA-LUNKP-49 Vaccine (1 - season) 2023 [facility]-Influenza Vaccine (#1) 2024 11/05/2011 [facility]-Diabetes: Hemoglobin A1C 11/13/2024, 03/17/2022, 08/01/2019 [facility]- SDOH Screenings 11/17/2024 [facility]-Adult SDOH Screenings 11/17/2024 05/17/2024 [facility]-Lung Cancer Screening 05/15/2025 05/15/2024 [facility]-Hepatitis C Screening Completed 05/15/2024 [facility]-Obesity Intervention Completed 025, 05/15/2024, 07/04/2022, Additional history exists HPV Vaccines Aged Out No longer eligi [...] this topic Medical Devices Implanted Type Area Gear Straightener Device Identifier Shelf Expiration Date Model / Serial / Lot Screw Screw Foot Description:Right foot; scre ws Procedures Procedure Name Priority Date/Time Associated Diagnosis Comments HEMOGLOBIN A1C Routine 05/16/2024 2:07 AM EDT HEPATITIS C ANTIBODY - ED W/REFLEX TO HCV QUANT PCR STAT 05/15/2024 3:[address] CHEST W IV CONTRAST STAT 05/15/2024 2:52 PM EDT from Last 3 Months or Most Recently Relevant to Health Maintenance Results * Hemoglobin A1c (05/16/2024 2:07 AM EDT) Hemoglobin A1c 4.5 <5.7 % 05/16/2024 2:38 AM EDT [facility] Blood Venous blood specimen / Unknown Venipuncture / Unknown 05/16/2024 2:07 AM EDT 05/16/2024 2:15 AM EDT Narrative [facility] - 05/16/2024 2:38 AM EDT HA1C Interpretive Data: Diagnosis of Diabetes: Diabetic > or = 6.5% Pre-diabetic 5.7 to 6.4% Non-diabetic < or = 5.6% Glycemic Targets for Type I and Type II Diabetics: Non- Adults <7.0% Adults <6.0% Children and Adolescents <7.5% Source: [place] Diabetes Association. Standards of medical care in diabetes,2017. Diabetes Care.2017:40 (suppl 1):S1-S135. HbA1c assay performed by an ion-exchange chromatography method that is certified traceable to the DCCT. us Violeta Monzon MD LAB BLOOD ORDERABLES Final Result [facility] [address] [place] [address] * Hepatitis C Antibody - ED (05/15/2024 3:03 PM EDT) Hepatitis C Antibody Negative Negative 05/15/2024 5:17 PM EDT [facility] Blood Venous blood specimen / Unknown Venipuncture / Unknown 05/15/2024 3:03 PM EDT 05/15/2024 3:34 PM EDT us Sury Villafuerte DO LAB BLOOD ORDERABLES Final Re sult [facility] [address] [place] [address] * CT Chest w IV Contrast (05/15/2024 [...] cm heterogeneous nodule lower pole left thyroid (8/64,6/78) with less heterogeneous appearing 2.5 cm nodule caudal medially(8/78). Small to moderate posterior layering left pleural [...] Ayala MD on 05/15/2024 3:43 PM us Sury Nugent Christo DO IMG CT PROCEDURES Final Resul t from Last 3 Months or Most Recently Relevant to Health Maintenance Insurance [address] [id number] [employer] MEDICARE Advance Directives Documents on File Type Date Recorded Patient Surface Water Manager Expl anation Advance Directives and Livin g Will 05/21/2024 9:23 AM Advance Directives and Livin g Will 03/17/2022 Power of [employer] 03/17/2022 * Full Code (Latest Code Status on File) Date Activated Date Inactivated Comments 05/15/2024 3:29 PM 05/20/2024 4:53 PM Decision mad e by POA * Full Code Date Activated Date Inactivated Comments 04/05/2022 4:18 PM 04/14/2022 6:20 PM Question Answer Comments Patient has decision-making capacity? Yes Care Teams Improvement Nurse Relationship Specialty Start Date End Date Meek Lucio APRN [address] [place] [address] PCP - General 05/17/24 Nico Hayward MD [address] [place] [address] 05/15/24 Ryan Rice MD [address] [facility] [address] [place] [address] Referring Physician Cardiology 03/21/22
--- OUTSIDE RECORDS SUMMARY | 2024-09-27 10:28 | XMS_ITS | Encounter Summary ---
Author Organization [facility] Address [address] [place] [address] Care Team Providers Care Media Director Name Role Phone Pcp, No Primary Care Provider UnavailMeek Grimes APRN Primary Care Provider Nico Hayward MD Unavailable [phone] Ryan Rice MD Unavailable [phone] Encounter Details Date Type Department Care Team (Late st Contact Info) Description 05/15/2024 Lab Requisition [facility] [address] [place] [address] Mauro Egan MD [address] [facility] [address] [place] [address] Encounter for general adult medical [...] any time in the past 12 m [facility], were you homeless or living in a mcfp (including now)? No 05/17/2024 Utilities Answer Date [...] 05/18/2024 8:00 AM EDT Emerita Rojas RN 6. Suicidal Behavior (Lifetime) No 05/18/2024 8:00 AM EDT Emerita Rojas RN documented as of this encounter Plan of Treatment Upcoming Encounters Date Type Department Care Team (Late st Contact Info) Description 11/20/2024 4:00 PM EDT Consult [place] [facility] [address], 1[address] [place] [address] Chris Gramajo MD [address] [place] [address] documented as of this encounter Procedures Procedure Name Priority Date/Time Associated Diagnosis Comments ETTA AURIS SURVEILLANCE BY PCR Routine 05/15/2024 5:30 PM EDT Encounter for general adult medical examination without abnormal findings documented in this encounter Results * Etta auris Surveillance by PCR (05/15/2024 5:30 PM EDT) Etta auris PCR Result Not Detected Not Detected 05/16/2024 2:03 PM EDT [facility] Swab (Axilla and Groin) 05/15/2024 5:30 PM EDT 05/15/2024 5:48 PM EDT Narrative [facility] - 05/16/2024 2:03 PM EDT This PCR assay was developed and its performance characteristics determined by [facility] as appropriate for clinical purposes. This assay has not been cleared or approved by the FDA, but is performed in a CLIA regulated laboratory that is qualified to perform high-complexity testing. us Mauro Egan MD LAB MICROBIOLOGY - GEN ERAL ORDERABLES Final Result [facility] [address] [place] [address] documented in this encounter Visit Diagnoses Diagnosis [...] documented as of this encounter Care Teams Media Director Relationship Specialty Start Date End Date Pcp, No [address] [place] [address] PCP - General Family Medicine 05/15/24 05/16/24 Meek Lucio APRN [address] [place] [address] PCP - General 05/17/24 Nico Hayward MD [address] [place] [address] 05/15/24 Ryan Rice MD [address] [id number] Referring Physician Cardiology 03/21/22 documented as of this encounter
--- OUTSIDE RECORDS SUMMARY | 2024-09-27 10:28 | XMS_ITS | Encounter Summary ---
Author Organization [facility] Address [address] [place] [address] Care Team Providers Care Dispatcher Relay Name Role Phone Nico Hayward MD Primary Care Provider + [phone] Pcp, No Primary Care Provider UnavailMeek Grimes APRN Primary Care Provider [phone] Nico Hayward MD Unavailable [phone] Ryan Rice MD Unavailable [phone] Encounter Details Date Type Department Care Team (Late st Contact Info) Description 04/11/2022 Lab Requisition [facility] [address] [place] [address] Valentin Aviles MD [address] [facility]th [facility] [address] [place] [address] Encounter for general adult medical examination without [...] Author No Risk Indicated 04/12/2022 12:00 PM Rani Kingston RN * Question Answer Date of Assessment [...] Info) Description 11/20/2024 4:00 PM EDT Consult [place] [facility] [address], 1[address] [place] [address] Chris Gramajo MD [address] [place] [address] documented as of this encounter [...] LAB MICROBIOLOGY - GENERAL ORDERABLES Final Result [facility] [address] [place] [address] documented in this encounter Visit Diagnoses Diagnosis Encounter for general adult medical examination without abnormal findings documented in this encounter Additional Health Concerns Assessment Noted Time A fall risk assessment has been complete d for the patient 03/17/2022 9:15 AM EST documented as of this encounter Care Teams Dispatcher Relay Relationship Specialty Start Date End Date Nico Hayward MD [address] [place] [address] PCP - General 07/17/20 05/14/24 Pcp, [address] [place] [address] PCP - General Family Medicine 05/15/24 05/16/24 Meek Lucio APRN [address] [place] [address] PCP - General 05/17/24 Nico Hayward MD [address] [place] [address] 05/15/24 Ryan Rice MD 1210 [facility] 36 [place] [address] Referring Physician Cardiology 03/21/22 documented as of this encounter
--- OUTSIDE RECORDS SUMMARY | 2024-09-27 10:28 | XMS_ITS | Encounter Summary ---
Author Organization [facility] Address [address] [place] [address] Care Team Providers Care Cco Name Role Phone Meek Lucio APRN Primary Care Provider [phone] Nico Hayward MD Unavailable [phone] Ryan Rice MD Unavailable [phone] Encounter Details Date Type Department Care Team (Late st Contact Info) Description 08/07/2024 Orders Only [facility] [address] [place] [address] Nannette Leslie JIN (acute kidney [...] any time in the past 12 m [facility], were you homeless or living in a skilled nursing (including now)? No 05/17/2024 Utilities Answer Date [...] Consult [place] [facility] [address], [address] [place] [address] Chris Gramajo MD [address] [place] [address] Scheduled Orders Name Type Priority Associated Diagnoses Orde r Schedule Renal Function Panel, Plasma Lab Routine JIN (acute kidney injury) ([facility]) Expected: 08/07/2024 (Approximate), Expires: 02/06/2026 CBC W/O Differential Lab Routine JIN (acute kidney injury) ([facility]) Expected: 08/07/2024 (Approximate), Expires: 02/06/2026 Vitamin D 25 Hydroxy Lab Routine JIN (acute kidney injury) ([facility]) Vitamin D insufficiency Expected: 08/07/2024 (Approximate), Expires: 02/06/2026 PTH Intact Total Lab Routine JIN (acute kidney injury) ([facility]) Vitamin D insufficiency Expected: 08/07/2024 (Approximate), Expires: 02/06/2026 Urinalysis with reflex microscopic (Culture NOT Included) Lab Routine JIN (acute kidney injury) ([facility]) Expected: 08/07/2024 (Approximate), Expires: 02/06/2026 Protein, Random, Urine with Creatinine Lab Routine JIN (acute kidney injury) ([facility]) Expected: 08/07/2024 (Approximate), Expires: 02/06/2026 Creatinine, Random, Urine Lab Routine JIN (acute kidney injury) ([facility]) Expected: 08/07/2024 (Approximate), Expires: 02/06/2026 documented as of this encounter Visit Diagnoses Diagnosis JIN (acute kidney injury) ([facility])- Primary Vitamin D insufficiency documented in this encounter Additional Health Concerns Assessment Noted Time A fall risk assessment has been complete d for the patient 05/05/2022 2:35 PM EST A Body Mass Index follow-up plan has been documented for the patient 05/20/2024 2:03 PM EDT documented as of this encounter Care Teams Cco Relationship Specialty Start Date End Date Meek Lucio APRN [address] [place] [address] PCP - General 05/17/24 Nico Hayward MD [address] [place] [address] 05/15/24 Ryan Rice MD 1210 [facility] 36 [place] [address] Referring Physician Cardiology 03/21/22 documented as of this encounter
[2024-09-27 10:50] LABS: INR 3.46 (0.9-1.1); Prothrombin Time 35.0 seconds (10.1-12.5)
[2024-09-27 11:26] LABS: Anion Gap 12.7 mEq/L (5-15); Blood Urea Nitrogen 45 mg/dl (7-17); Calcium 9.9 mg/dl (8.4-10.2); Carbon Dioxide 22 mmol/L (22.0-30.0); Chloride 108 mmol/L (98-107); Creatinine,Serum 2.30 mg/dl (0.52-1.04); Estimated Glomerular Filt Rate 21 ml/min (>60); GFR (African American) 25 ML/MIN (>60); Glucose 107 mg/dl (74-100); Potassium 4.7 mmoL/L (3.5-5.1); Sodium 138 mmol/L (136-145)
== END 2024-09-27 23:59 | disposition home or self-care (01) ==
LOC: ACC 10:25
PROVIDERS: Internal Medicine; PCP Nurse Practitioner Family; Visit Provider Physician Assistant
DX: E87.5 Hyperkalemia (principal); I48.91 Unspecified atrial fibrillation; Z79.01 Long term (current) use of anticoagulants
CPT/HCPCS: 36415; 80048; 85610

== ENCOUNTER 2024-10-04 14:58 | Outpatient (CLI) | payer MEDICARE, SELFPAY ==
--- OUTSIDE RECORDS SUMMARY | 2024-09-27 09:40 | XMS_ITS | Encounter Summary ---
Author Organization [facility] Address [address] [place] [address] Care Team Providers Care Motor Vehicle Assembler Name Role Phone Meek Lucio APRN Primary Care Provider [phone] Nico Hayward MD Unavailable [phone] Ryan Rice MD Unavailable [phone] Reason for Referral * Consultation (Routine) - Authorized Specialty Diagnoses / Procedures Referred By Contjeff t Referred To Contact Diagnoses JIN (acute kidney injury) ([facility]) Gabriella Brand APRN [address] [facility] [address] [place] [address] Phone: tel: fax: Referral ID Status Reason Start Date Expiration Date V isits Requested Visits Authorized [id number] Authorized 09/27/2024 03/29/2026 1 1 Reason for Visit * Consultation (Routine) - Closed Specialty Diagnoses / Procedures Referred By Jeff staton Referred To Contact Nephrology Diagnoses Disorder of kidney and ureter, unspecified Benedict Porter MD [address] [place] [address] Phone: tel: fax: [facility] Nephrology, Bone & Mineral Metabolism [address] [facility] [place] [address] Phone: tel: fax: Referral ID Status Reason Start Date Expiration Date V isits Requested Visits Authorized [id number] Closed Specialty Services Required 08/05/2024 02/04/2026 1 1 Encounter Details Date Type Department Care Team ([facility] st Contact Info) Description 09/27/2024 9:40 AM EDT Office Visit [facility] [address] [place] [address] Gabriella Brand, BERNARDINO [address] [facility] [address] [place] [phone] JIN (acute kidney injury) (CMS/HCC) (Primary [...] any time in the past 12 m [facility], were you homeless or living in a snf (including now)? No 05/17/2024 Utilities Answer Date [...] Labs scanned in to media tab of [employer] from an outside facility. Labs completed on [...] with concurrent aldactone use. Discussed case with [facility] Cardiology. Patient with low renal reserve [...] Info) Description 11/20/2024 4:00 PM EDT Consult [facility] [address] [place] [address] Chris Gramajo MD [address] [place] [address] 12/27/2024 11:20 AM EDT Office Visit [facility] [address] [place] [address] Gabriella Brand APRN [address] [facility] [address] [place] [address] Scheduled Orders Name Type Priority Associated Diagnoses Orde r Schedule CBC W/O Differential Lab Routine JIN (acute kidney injury) ([facility]) Expected: 09/27/2024 (Approximate), Expires: 03/30/2026 Protein, Random, Urine with Creatinine Lab Routine JIN (acute kidney injury) ([facility]) Expected: 09/27/2024 (Approximate), Expires: 03/30/2026 PTH Intact Total Lab Routine JIN (acute kidney injury) ([facility]) Stage 3 chronic kidney disease, unspecified whether stage 3a or 3b CKD ([facility]) Expected: 09/27/2024 (Approximate), Expires: 03/30/2026 Renal Function Panel, Plasma Lab Routine JIN (acute kidney injury) ([facility]) Expected: 09/27/2024 (Approximate), Expires: 03/30/2026 Urinalysis with reflex microscopic (Culture NOT Included) Lab Routine JIN (acute kidney injury) ([facility]) Stage 3 chronic kidney disease, unspecified whether stage 3a or 3b CKD ([facility]) Expected: 09/27/2024 (Approximate), Expires: 03/30/2026 Vitamin D 25 Hydroxy Lab Routine JIN (acute kidney injury) ([facility]) Stage 3 chronic kidney disease, unspecified whether stage 3a or 3b CKD ([facility]) Expected: 09/27/2024 (Approximate), Expires: 03/30/2026 Scheduled Referrals Name Type Priority Associated Diagnoses Order Schedule Follow Up Nephrology Outpatient Referral Routine JIN (acute kidney injury) ([facility]) Expected: 12/28/2024 (Approximate), Expires: 10/28/2025 documented as of this encounter Visit Diagnoses Diagnosis JIN (acute kidney injury) ([facility])- Primary Acquired solitary kidney Acquired absence of kidney Stage 3 chronic kidney disease, unspecified whether stage 3a or 3b CKD ([facility]) Essential hypertension Unspecified essential hypertension Chronic kidney disease-mineral and bone disorder documented in this encounter Additional Health Concerns Assessment Noted Time A fall risk assessment has been complete d for the patient 05/05/2022 2:35 PM EST A Body Mass Index follow-up plan has been documented for the patient 09/27/2024 10:19 AM EDT documented as of this encounter Care Teams Motor Vehicle Assembler Relationship Specialty Start Date End Date Meek Lucio APRN [address] [place] [address] PCP - General 05/17/24 Nico Hayward MD [address] [place] [address] 05/15/24 Ryan Rice MD [address] [address] Referring Physician Cardiology 03/21/22 documented as of this encounter
--- OUTSIDE RECORDS SUMMARY | 2024-10-04 15:00 | XMS_ITS | Encounter Summary ---
Author Organization [facility] Address [address] [place] [address] Care Team Providers Care Administrative Office Clerk Name Role Phone Nico Hayward MD Primary Care Provider + [phone] Pcp, No Primary Care Provider UnavailMeek Grimes APRN Primary Care Provider [phone] Nico Hayward MD Unavailable [phone] Ryan Rice MD Unavailable [phone] Encounter Details Date Type Department Care Team (Late st Contact Info) Description 02/22/2022 Orders Only External Location [address] [place] [address] Ryan Rice MD [address] [address] Social History Tobacco Use Types [...] Info) Description 11/20/2024 4:00 PM EDT [facility] [place] [facility] [address], 1st [place] [address] Chris Gramajo MD [address] [place] [address] 12/27/2024 11:20 AM EDT Office Visit [facility] [address] [place] [address] Gabriella Brand APRN [address] [facility] [address] [place] [address] documented as of this encounter Procedures Procedure [...] on filedocumented in this encounter Care Teams Administrative Office Clerk Relationship Specialty Start Date End Date Nico Hayward MD [address] [place] [address] PCP - General 07/17/20 05/14/24 Pcp, Vanessa [address] [place] [address] PCP - General Family Medicine 05/15/24 05/16/24 Meek Lucio APRN [address] [place] [id number] PCP - General 05/17/24 Nico Hayward MD [address] [place] [address] 05/15/24 Ryan Rice MD [address] [place] [id number] Referring Physician Cardiology 03/21/22 documented as of this encounter
--- OUTSIDE RECORDS SUMMARY | 2024-10-04 15:00 | XMS_ITS | Encounter Summary ---
Author Organization [facility] Address [address] [place] [address] Care Team Providers Care Machine Installer Name Role Phone Nico Hayward MD Primary Care Provider + [phone] Pcp, No Primary Care Provider UnavailMeek Grimes APRN Primary Care Provider [phone] Nico Hayward MD Unavailable [phone] Ryan Rice MD Unavailable [phone] Encounter Details Date Type Department Care Team (Late st Contact Info) Description 02/22/2022 Orders Only External Location [address] [place] [address] Ryan Rice MD [address] [address] Social History Tobacco Use Types [...] Info) Description 11/20/2024 4:00 PM EDT Consult [place] [facility] [address], 1st [place] [address] Chris Gramajo MD [address] [place] [address] 12/27/2024 11:20 AM EDT Office Visit [facility] [address] [place] [address] Gabriella Brand, BERNARDINO [address] [facility] [address] [place] [address] documented as of this encounter [...] on filedocumented in this encounter Care Teams Machine Installer Relationship Specialty Start Date End Date Nico Hayward MD [address] [place] [address] PCP - General 07/17/20 05/14/24 Pcp, Vanessa [address] [place] [address] PCP - General Family Medicine 05/15/24 05/16/24 Meek Lucio APRN [address] [place] [address] PCP - General 05/17/24 Nico Hayward MD [address] [place] [address] 05/15/24 Ryan Rice MD [address] [address] Referring Physician Cardiology 03/21/22 documented as of this encounter
--- OUTSIDE RECORDS SUMMARY | 2024-10-04 15:01 | XMS_ITS | Encounter Summary ---
Author Organization [facility] Address [address] [place] [address] Care Team Providers Care Winch Driver Name Role Phone Meek Lucio APRN Primary Care Provider [phone] Nico Hayward MD Unavailable [phone] Ryan Rice MD Unavailable [phone] Encounter Details Date Type Department Care Team (Late st Contact Info) Description 08/07/2024 Orders Only [facility] [address] [place] [address] [...] any time in the past 12 m [facility], were you homeless or living in a detention (including now)? No 05/17/2024 Utilities Answer Date [...] Consult [place] [facility] [address], 1[address] [place] [address] Chris Gramajo MD [address] [place] [address] 12/27/2024 11:20 AM EDT Office Visit [facility] [address] [place] [address] Gabriella Brand, ARMATURE COIL WINDER [address] [place] [address] Scheduled Orders Name Type Priority Associated Diagnoses Orde r Schedule Renal Function Panel, Plasma Lab Routine JIN (acute kidney injury) ([facility]) Expected: 08/07/2024 (Approximate), Expires: 02/06/2026 CBC W/O Differential Lab Routine JIN (acute kidney injury) ([facility]) Expected: 08/07/2024 (Approximate), Expires: 02/06/2026 Vitamin D 25 Hydroxy Lab Routine JIN (acute kidney injury) ([facility]) Vitamin D insufficiency Expected: 08/07/2024 (Approximate), Expires: 02/06/2026 PTH Intact Total Lab Routine JIN (acute kidney injury) ([facility]) Vitamin D insufficiency Expected: 08/07/2024 (Approximate), Expires: 02/06/2026 Urinalysis with reflex microscopic (Culture NOT Included) Lab Routine JIN (acute kidney injury) ([facility]) Expected: 08/07/2024 (Approximate), Expires: 02/06/2026 Protein, Random, Urine with Creatinine Lab Routine JIN (acute kidney injury) ([facility]) Expected: 08/07/2024 (Approximate), Expires: 02/06/2026 Creatinine, Random, Urine Lab Routine JIN (acute kidney injury) ([facility]) Expected: 08/07/2024 (Approximate), Expires: 02/06/2026 documented as of this encounter Visit Diagnoses Diagnosis JIN (acute kidney injury) ([facility])- Primary Vitamin D insufficiency documented in this encounter Additional Health Concerns Assessment Noted Time A fall risk assessment has been complete d for the patient 05/05/2022 2:35 PM EST A Body Mass Index follow-up plan has been documented for the patient 05/20/2024 2:03 PM EDT documented as of this encounter Care Teams Winch Driver Relationship Specialty Start Date End Date Meek Lucio APRN [address] [place] [address] PCP - General 05/17/24 Nico Hayward MD [address] [place] [address] 05/15/24 Ryan Rice MD [address] [id number] Referring Physician Cardiology 03/21/22 documented as of this encounter
--- OUTSIDE RECORDS SUMMARY | 2024-10-04 15:01 | XMS_ITS | Encounter Summary ---
Author Organization [facility] Address [address] [place] [address] Care Team Providers Care Clearance Rep Name Role Phone Pcp, No Primary Care Provider UnavailMeek Grimes APRN Primary Care Provider Nico Hayward MD Unavailable [phone] Ryan Rice MD Unavailable [phone] Encounter Details Date Type Department Care Team (Late st Contact Info) Description 05/15/2024 Lab Requisition [facility] [address] [place] [address] Mauro Egan MD 3101 [facility] [address] [place] [address] Encounter for general adult medical [...] any time in the past 12 m [facility], were you homeless or living in [...] Info) Description 11/20/2024 4:00 PM EDT Consult [facility] [address], 1st [place] [address] Chris Gramajo MD [address] [facility] [address] [place] [address] 12/27/2024 11:20 AM EDT Office Visit [facility] [address] [place] [address] Gabriella Brand, ACCESS DEVELOPER [address] [facility] [address] [place] [address] documented as of this encounter Procedures Procedure Name Priority Date/Time Associated Diagnosis Comments ETTA AURIS SURVEILLANCE BY PCR Routine 05/15/2024 5:30 PM EDT Encounter for general adult medical examination without abnormal findings documented in this encounter Results * Etta auris Surveillance by PCR (05/15/2024 5:30 PM EDT) Etta auris PCR Result Not Detected Not Detected 05/16/2024 2:03 PM EDT [facility] Swab (Axilla and Groin) 05/15/2024 5:30 PM EDT 05/15/2024 5:48 PM EDT Narrative [facility] - 05/16/2024 2:03 PM EDT This PCR assay was developed and its performance characteristics determined by [facility] as appropriate for clinical purposes. This assay has not been cleared or approved by the FDA, but is performed in a CLIA regulated laboratory that is qualified to perform high-complexity testing. us Mauro Egan MD LAB MICROBIOLOGY - GEN ERAL ORDERABLES Final Result [facility] [address] [place] [address] documented in this encounter Visit Diagnoses Diagnosis [...] documented as of this encounter Care Teams Clearance Rep Relationship Specialty Start Date End Date Pcp, No [address] [place] [address] PCP - General Family Medicine 05/15/24 05/16/24 Meek Lucio APRN [address] [place] [address] PCP - General 05/17/24 Nico Hayward MD [address] [place] [address] 05/15/24 Ryan Riec MD 1210 [facility] 36 [place] [address] Referring Physician Cardiology 03/21/22 documented as of this encounter
--- OUTSIDE RECORDS SUMMARY | 2024-10-04 15:01 | XMS_ITS | Encounter Summary ---
Author Organization [facility] Address [address] [place] [address] Care Team Providers Care Per Diem Nurse Name Role Phone Nico Hayward MD Primary Care Provider + [phone] Pcp, No Primary Care Provider UnavailMeek Grimes APRN Primary Care Provider [phone] Nico Hayward MD Unavailable [phone] Ryan Rice MD Unavailable [phone] Encounter Details Date Type Department Care Team (Late st Contact Info) Description 04/11/2022 Lab Requisition [facility] [address] [place] [address] Valentin Aviles MD [address] [facility] 7th [facility] 700 [place] [address] Encounter for general adult medical examination without [...] Info) Description 11/20/2024 4:00 PM EDT Consult [place] [facility] [address], 1[address] [place] [address] Chris Gramajo MD [address] [facility] [address] [place] [address] 12/27/2024 11:20 AM EDT Office Visit [facility] [address] [place] [address] Gabriella Brand, INNOVATIONS PARAPROFESSIONAL [address] [facility] [address] [place] [phone] documented as of this encounter Procedures Procedure Name Priority Date/Time Associated Diagnosis Comments MULTI DRUG RESISTANCE TEST Routine 04/11/2022 8:00 PM EST Encounter for general adult medical examination without abnormal findings documented in this encounter Results * Multi Drug Resistance Test (04/11/2022 8:00 PM EST) Culture No growth at day 2 04/13/2022 9:20 AM EST [facility] Swab (Nares and Zoraida Rectal) 04/11/2022 8:00 PM EST 04/11/2022 9:54 PM EST us Valentin Schulz MD LAB MICROBIOLOGY - GENERAL ORDERABLES Final Result [facility] [address] [place] [address] documented in this encounter Visit Diagnoses Diagnosis Encounter for general adult medical examination without abnormal findings documented in this encounter Additional Health Concerns Assessment Noted Time A fall risk assessment has been complete d for the patient 03/17/2022 9:15 AM EST documented as of this encounter Care Teams Per Diem Nurse Relationship Specialty Start Date End Date Nico Hayward MD [address] [place], [place] [id number] PCP - General 07/17/20 05/14/24 Pcp, [address] [address] PCP - General Family Medicine 05/15/24 05/16/24 Meek Lucio APRN [address] [place] [address] PCP - General 05/17/24 Nico Hayward MD [address] [place] [address] 05/15/24 Ryan Rice MD 1210 [facility] [address] Referring Physician Cardiology 03/21/22 documented as of this encounter
--- OUTSIDE RECORDS SUMMARY | 2024-10-04 15:01 | XMS_ITS | Encounter Summary ---
Author Organization [facility] Address [address] [place] [address] Care Team Providers Care Principal Scientist Name Role Phone Meek Lucio APRN Primary Care Provider [phone] Nico Hayward MD Unavailable [phone] Ryan Rice MD Unavailable [phone] Encounter Details Date Type Department Care Team [...] time in the past 12 m [facility], were you homeless or living [...] Consult [place] [facility] [address] [place] [address] Chris Gramajo MD [address] [place] [address] 12/27/2024 11:20 AM EDT [facility] [address] [facility] [address] [place] [address] Gabriella Brand, DUMPER BULK SYSTEM [address] [facility] 401 [place] [address] documented as of this encounter Visit Diagnoses Not on filedocumented in this encounter Additional Health Concerns Assessment Noted Time A fall risk assessment has been complete d for the patient 05/05/2022 2:35 PM EST A Body Mass Index follow-up plan has been documented for the patient 09/27/2024 10:19 AM EDT documented as of this encounter Care Teams Principal Scientist Relationship Specialty Start Date End Date Meek Lucio, DUMPER BULK SYSTEM [address] [place] [address] PCP - General 05/17/24 Nico Hayward MD [address] [place] [address] 05/15/24 Ryan Rice MD 1210 [facility] 36 [place] [address] Referring Physician Cardiology 03/21/22 documented as of this encounter
--- OUTSIDE RECORDS SUMMARY | 2024-10-04 15:01 | XMS_ITS | Clinical Summary ---
Author Organization [facility] Address [address] [place] [address] Care Team Providers Care Budget Director Name Role Phone Meek Lucio APRN Primary Care Provider [phone] Nico Hayward MD Unavailable [phone] Ryan Rice MD Unavailable [phone] Allergies Active Allergy Reactions Criticality Noted Date [...] Medium 11/30/2010 hives Morphine Hallucinations Medium 05/15/2024 [place] Hives Medium 09/09/2019 Medications Trelegy Ellipta 100-62.5-25 [...] Resume home medications as appropriate History of [place] (myocardial infarction) 05/15/2024 Overview (05/15/2024): Resume home medications as appropriate History of CVA (cerebrovascular accident) 2024 Overview (05/15/2024): Complicates all aspects of care. Unsure deficits Paroxysmal atrial fibrillation 05/15/2024 Overview (05/15/2024): Rate/rhythm control strategy with beta blockers Thromboembolic risk as assessed by [id number] Anticoagulation plan pending Would keep electrolytes at [...] Description 09/27/2024 9:40 AM EDT Office Visit [facility] [address] [place] [address] Gabriella Brand APRN JIN (acute kidney injury) ([facility]) (Primary Dx); Acquired solitary kidney; Stage 3 chronic kidney disease, unspecified whether stage 3a or 3b CKD ([facility]); Essential hypertension; Chronic kidney disease-mineral and bone disorder 09/27/2024 Travel 08/07/2024 Orders Only [facility] [address] [place], [place] [address] Nannette Leslie JIN (acute kidney injury) ([facility]) (Primary Dx); Vitamin D insufficiency from Last [...] any time in the past 12 m [facility], were you homeless or living in a custodial (including now)? 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 [address] [place] [address] Gabriella Brand, MATCHER OFFBEARER [address] [facility] [address] [place] [address] Health Maintenance Due Date Last Done Comments UKY-Bone Density Scan 1954 UKY-Depression Screening 1954 UKY-Medicare Annual Wellness (AWV) 1955 UKY-/Child/Adol SDOH Screenings 1954 Diabetes: Dental Exam 1964 [...] - Risk 60-74 years 1-dose series) 2014 XID-ESROE-13 Vaccine (1 - season) 2023 UKY-Influenza Vaccine [...] this topic Medical Devices Implanted Type Area Camp Head Counselor Device Identifier Shelf Expiration Date Model / [...] 4.5 <5.7 % 05/16/2024 2:38 AM EDT [facility] Blood Venous blood specimen / Unknown Venipuncture / Unknown 05/16/2024 2:07 AM EDT 05/16/2024 2:15 AM EDT Narrative [facility] - 05/16/2024 2:38 AM EDT HA1C Interpretive Data: Diagnosis of Diabetes: Diabetic > or = 6.5% Pre-diabetic 5.7 to 6.4% Non-diabetic < or = 5.6% Glycemic Targets for Type I and Type II Diabetics: Non- Adults <7.0% Adults <6.0% Children and Adolescents <7.5% Source: [place] [employer]. Standards of medical care in diabetes,2017. Diabetes Care.2017:40 (suppl 1):S1-S135. HbA1c assay performed by an ion-exchange chromatography method that is certified traceable to the DCCT. us Violeta Monzon MD LAB BLOOD ORDERABLES Final Result [facility] [address] [place] [address] * Hepatitis C Antibody - ED (05/15/2024 3:03 PM EDT) Hepatitis C Antibody Negative Negative 05/15/2024 5:17 PM EDT [facility] Blood Venous blood specimen / Unknown Venipuncture / Unknown 05/15/2024 3:03 PM EDT 05/15/2024 3:34 PM EDT us Sury Villafuerte DO LAB BLOOD ORDERABLES Final Re sult [facility] [address] [place] [address] * CT Chest w IV Contrast (05/15/2024 [...] Darinel Ayala MD on 05/15/2024 3:43 PM Sury Villafuerte DO IMG CT PROCEDURES Final Resul t from Last 3 Months or Most Recently Relevant to Health Maintenance Insurance [address] MEDICARE Advance Directives Documents on File Type Date Recorded Patient Christmas Tree Grower Expl anation Advance Directives and Livin g Will 05/21/2024 9:23 AM Advance Directives and Livin g Will 03/17/2022 Power of Distribution Operation Supervisor 03/17/2022 * Full Code (Latest Code Status on File) Date Activated Date Inactivated Comments 05/15/2024 3:29 PM 05/20/2024 4:53 PM Decision mad e by POA * Full Code Date Activated Date Inactivated Comments 04/05/2022 4:18 PM 04/14/2022 6:20 PM Question Answer Comments Patient has decision-making capacity? Yes Care Teams Budget Director Relationship Specialty Start Date End Date Meek Lucio APRN [address] [place] [address] PCP - General 05/17/24 Nico Hayward MD [address] [place] [address] 05/15/24 Ryan Rice MD [address] [address] Referring Physician Cardiology 03/21/22
--- NOTE | 2024-10-04 15:15 | CA_ITS ---
APPROVED REPORT EXAM: Limited 2D Echocardiogram Group Home Worker: Cher Mejia RVT Ht: 5 ft 6 in Wt: 177lbs BSA: 1.90 BP: 127/79 mmHg Indications: HFrEF,LIFEVEST IN PLACE 2D Dimensions IVSd 1.96 cm F: 0.6-1.0 LVEF (Visual) 33.80 % PWd 1.02 cm F: 0.6 - 1.0 LVDd 3.16 cm F: 3.9 - 5.3 LVDs 2.67 cm F: 2.2 - 3.5 Other Information Study Quality: Fair Conclusion This is a limited TTE to evaluate for LV systolic function. Limited windows are obtained. The left ventricle is normal in size. There is increased LV wall thickness. There is moderate to severe global hypokinesis present. There is severe hypokinesis of the septal, inferoseptal, inferior, and apical LV swanson. The septum is asynchronous. LVEF is 30%. Compared to prior study from 08/13/2024, the LV systolic function is unchanged. Electronically signed by : Chelsie Hutton MD 10/05/2024 12:01:44
== END 2024-10-04 23:59 | disposition home or self-care (01) ==
LOC: RT 14:59
PROVIDERS: PCP Nurse Practitioner Family; Visit Provider Nurse Practitioner Family
DX: I11.0 Hypertensive heart disease with heart failure (principal); I50.20 Unspecified systolic (congestive) heart failure; R94.39 Abnormal result of other cardiovascular function study; I25.10 Atherosclerotic heart disease of native coronary artery without angina pectoris; I63.9 Cerebral infarction, unspecified; R94.31 Abnormal electrocardiogram [ECG] [EKG]; R93.1 Abnormal findings on diagnostic imaging of heart and coronary circulation
CPT/HCPCS: 93308

== ENCOUNTER 2024-10-18 13:50 | Outpatient (CLI) | payer MEDICARE, SELFPAY ==
--- OUTSIDE RECORDS SUMMARY | 2024-09-27 09:40 | XMS_ITS | Encounter Summary ---
Author Organization [facility] Address [address] [place] [address] Care Team Providers Care Title Agent Name Role Phone Meek Lucio APRN Primary Care Provider [phone] Nico Hayward MD Unavailable [phone] Ryan Rice MD Unavailable [phone] Reason for Referral * Consultation (Routine) - Authorized Specialty Diagnoses / Procedures Referred By Contjeff t Referred To Contact Diagnoses JIN (acute kidney injury) ([facility]) Gabriella Brand APRN [address] [facility] [address] [place] [address] Phone: tel: fax: Referral ID Status Reason Start Date Expiration Date V isits Requested Visits Authorized [id number] Authorized 09/27/2024 03/29/2026 1 1 Reason for Visit * Consultation (Routine) - Closed Specialty Diagnoses / Procedures Referred By Jeff staton Referred To Contact Nephrology Diagnoses Disorder of kidney and ureter, unspecified Benedict Porter MD [address] [place] [address] Phone: tel: fax: [facility] Nephrology, Bone & Mineral Metabolism [address] [facility], [address] [place] [address] Phone: tel: fax: Referral ID Status Reason Start Date Expiration Date V isits Requested Visits Authorized [id number] Closed Specialty Services Required 08/05/2024 02/04/2026 1 1 Encounter Details Date Type Department Care Team ([facility] st Contact Info) Description 09/27/2024 9:40 AM EDT Office Visit [facility] [address] [place] [address] Gabriella Brand, BERNARDINO [address] [facility] [address] [place] [phone] JIN (acute kidney injury) (CMS/HCC) (Primary [...] any time in the past 12 m [facility], were you homeless or living in a intermediate (including now)? No 05/17/2024 Utilities Answer Date [...] Labs scanned in to media tab of [facility] from an outside facility. Labs completed on [...] with concurrent aldactone use. Discussed case with [facility] Cardiology. Patient with low renal reserve with [...] Info) Description 11/20/2024 4:[address] [facility] [address], [address] [place] [address] Chris Gramajo MD [address] [place] [address] 12/27/2024 11:20 AM EDT Office Visit [facility] [address] [place] [address] Gabriella Brand APRN [address] [facility] [address] [place] [address] Scheduled Orders Name Type Priority Associated Diagnoses Orde r Schedule CBC W/O Differential Lab Routine JIN (acute kidney injury) ([facility]) Expected: 09/27/2024 (Approximate), Expires: 03/30/2026 Protein, Random, Urine with Creatinine Lab Routine JIN (acute kidney injury) ([facility]) Expected: 09/27/2024 (Approximate), Expires: 03/30/2026 PTH Intact Total Lab Routine JIN (acute kidney injury) ([facility]) Stage 3 chronic kidney disease, unspecified whether stage 3a or 3b CKD ([facility]) Expected: 09/27/2024 (Approximate), Expires: 03/30/2026 Renal Function Panel, Plasma Lab Routine JIN (acute kidney injury) ([facility]) Expected: 09/27/2024 (Approximate), Expires: 03/30/2026 Urinalysis with reflex microscopic (Culture NOT Included) Lab Routine JIN (acute kidney injury) ([facility]) Stage 3 chronic kidney disease, unspecified whether stage 3a or 3b CKD ([facility]) Expected: 09/27/2024 (Approximate), Expires: 03/30/2026 Vitamin D 25 Hydroxy Lab Routine JIN (acute kidney injury) ([facility]) Stage 3 chronic kidney disease, unspecified whether stage 3a or 3b CKD ([facility]) Expected: 09/27/2024 (Approximate), Expires: 03/30/2026 Scheduled Referrals Name Type Priority Associated Diagnoses Order Schedule Follow Up Nephrology Outpatient Referral Routine JIN (acute kidney injury) ([facility]) Expected: 12/28/2024 (Approximate), Expires: 10/28/2025 documented as of this encounter Visit Diagnoses Diagnosis JIN (acute kidney injury) ([facility])- Primary Acquired solitary kidney Acquired absence of kidney Stage 3 chronic kidney disease, unspecified whether stage 3a or 3b CKD ([facility]) Essential hypertension Unspecified essential hypertension Chronic kidney disease-mineral and bone disorder documented in this encounter Additional Health Concerns Assessment Noted Time A fall risk assessment has been complete d for the patient 05/05/2022 2:35 PM EST A Body Mass Index follow-up plan has been documented for the patient 09/27/2024 10:19 AM EDT documented as of this encounter Care Teams Title Agent Relationship Specialty Start Date End Date Meek Lucio APRN [address] [place] [address] PCP - General 05/17/24 Nico Hayward MD [address] [place] [address] 05/15/24 Ryan Rice MD [address] [address] Referring Physician Cardiology 03/21/22 documented as of this encounter
--- OUTSIDE RECORDS SUMMARY | 2024-10-18 13:53 | XMS_ITS | Encounter Summary ---
Author Organization [facility] Address [address] [place] [address] Care Team Providers Care Power Brake Rebuilder Name Role Phone Nico Hayward MD Primary Care Provider + [phone] Pcp, No Primary Care Provider UnavailMeek Grimes APRN Primary Care Provider [phone] Nico Hayward MD Unavailable [phone] Ryan Rice MD Unavailable [phone] Encounter Details Date Type Department Care Team (Late st Contact Info) Description 02/22/2022 Orders Only External Location [address] [place] [address] Ryan Rice MD [address] [address] Social History Tobacco Use Types [...] Info) Description 11/20/2024 4:00 PM EDT Consult [place] [facility] [address], [address]st [place] [address] Chris Gramajo MD [address] [place] [address] 12/27/2024 11:20 AM EDT Office Visit [facility] [address] [place] [address] Gabriella Brand, BERNARDINO [address] [facility] [address] [place] [address] documented as of this encounter [...] on filedocumented in this encounter Care Teams Power Brake Rebuilder Relationship Specialty Start Date End Date Nico Hayward MD [address] [place] [address] PCP - General 07/17/20 05/14/24 Pcp, Vanessa [address] [place] [address] PCP - General Family Medicine 05/15/24 05/16/24 Meek Lucio APRN [address] [place] [address] PCP - General 05/17/24 Nico Hayward MD [address] [place] [address] 05/15/24 Ryan Rice MD [address] [address] Referring Physician Cardiology 03/21/22 documented as of this encounter
--- OUTSIDE RECORDS SUMMARY | 2024-10-18 13:53 | XMS_ITS | Encounter Summary ---
Author Organization [facility] Address [address] [place] [address] Care Team Providers Care Weed Control Inspector Name Role Phone Nico Hayward MD Primary Care Provider + [phone] Pcp, No Primary Care Provider UnavailMeek Grimes APRN Primary Care Provider [phone] Nico Hayward MD Unavailable [phone] Ryan Rice MD Unavailable [phone] Encounter Details Date Type Department Care Team (Late st Contact Info) Description 04/11/2022 Lab Requisition [facility] [address] [place] [address] Valentin Aviles MD [address] [facility] 7[address] [facility] [address] [place] [address] Encounter for general adult medical examination without [...] Info) Description 11/20/2024 4:00 PM EDT Consult [place] [facility] [address], 1st [place] [address] Chris Gramajo MD [address] [facility] [address] [place] [address] 12/27/2024 11:20 AM EDT Office Visit [facility] [address] [place] [address] Gabriella Brand, MONEY ROOM TELLER [address] [facility] [address] [place] [phone] documented as of this encounter Procedures Procedure Name Priority Date/Time Associated Diagnosis Comments MULTI DRUG RESISTANCE TEST Routine 04/11/2022 8:00 PM EST Encounter for general adult medical examination without abnormal findings documented in this encounter Results * Multi Drug Resistance Test (04/11/2022 8:00 PM EST) Culture No growth at day 2 04/13/2022 9:20 AM EST [facility] Swab (Nares and Zoraida Rectal) 04/11/2022 8:00 PM EST 04/11/2022 9:54 PM EST us Valentin Schulz MD LAB MICROBIOLOGY - GENERAL ORDERABLES Final Result [facility] [address] [place] [address] documented in this encounter Visit Diagnoses Diagnosis Encounter for general adult medical examination without abnormal findings documented in this encounter Additional Health Concerns Assessment Noted Time A fall risk assessment has been complete d for the patient 03/17/2022 9:15 AM EST documented as of this encounter Care Teams Weed Control Inspector Relationship Specialty Start Date End Date Nico Hayward MD [address] [place], [place] [id number] PCP - General 07/17/20 05/14/24 Pcp, [address] [address] PCP - General Family Medicine 05/15/24 05/16/24 Meek Lucio APRN [address] [place] [address] PCP - General 05/17/24 Nico Hayward MD [address] [place] [address] 05/15/24 Ryan Rice MD [address] Count Includes [facility] [address] Referring Physician Cardiology 03/21/22 documented as of this encounter
--- OUTSIDE RECORDS SUMMARY | 2024-10-18 13:53 | XMS_ITS ---
Author Organization Unknown TREATMENT PLAN [facility] Start Date Provider Encounter for Check-up [id number] [facility]
--- OUTSIDE RECORDS SUMMARY | 2024-10-18 13:53 | XMS_ITS | Encounter Summary ---
Author Organization [facility] Address [address] [place] [address] Care Team Providers Care Client Evaluator Name Role Phone Pcp, No Primary Care Provider UnavailMeek Grimes APRN Primary Care Provider [phone] Nico Hayward MD Unavailable [phone] Ryan Rice MD Unavailable [phone] Encounter Details Date Type Department Care Team (Late st Contact Info) Description 05/15/2024 Lab Requisition [facility] [address] [place] [address] Mauro Egan MD [address] [facility] [address] [place] [address] Encounter for general adult medical [...] time in the past 12 m [facility], were you homeless or living in [...] Info) Description 11/20/2024 4:00 PM EDT Consult [facility] [address], 1st [place] [address] Chris Gramajo MD [address] [facility] [address] [place] [address] 12/27/2024 11:20 AM EDT Office Visit [facility] [address] [place] [address] Gabriella Brand, ELECTRONIC BENCH TECHNICIAN [address] [facility] [address] [place] [address] documented as of this encounter Procedures Procedure Name Priority Date/Time Associated Diagnosis Comments ETTA AURIS SURVEILLANCE BY PCR Routine 05/15/2024 5:30 PM EDT Encounter for general adult medical examination without abnormal findings documented in this encounter Results * Etta auris Surveillance by PCR (05/15/2024 5:30 PM EDT) Etta auris PCR Result Not Detected Not Detected 05/16/2024 2:03 PM EDT [facility] Swab (Axilla and Groin) 05/15/2024 5:30 PM EDT 05/15/2024 5:48 PM EDT Narrative [facility] - 05/16/2024 2:03 PM EDT This PCR assay was developed and its performance characteristics determined by [facility] as appropriate for clinical purposes. This assay has not been cleared or approved by the FDA, but is performed in a CLIA regulated laboratory that is qualified to perform high-complexity testing. us Mauro Egan MD LAB MICROBIOLOGY - GEN ERAL ORDERABLES Final Result [facility] [address] [place] [address] documented in this encounter Visit Diagnoses Diagnosis [...] documented as of this encounter Care Teams Client Evaluator Relationship Specialty Start Date End Date Pcp, No [address] [place] [address] PCP - General Family Medicine 05/15/24 05/16/24 Meek Lucio APRN [address] [place] [address] PCP - General 05/17/24 Nico Hayward MD [address] [place] [address] 05/15/24 Ryan Rice MD 1210 [facility] [address] [place] [address] Referring Physician Cardiology 03/21/22 documented as of this encounter
--- OUTSIDE RECORDS SUMMARY | 2024-10-18 13:53 | XMS_ITS | Encounter Summary ---
Author Organization [facility] Address [address] [place] [address] Care Team Providers Care Abrasive Mixer Helper Name Role Phone Nico Hayward MD Primary Care Provider + [phone] Pcp, No Primary Care Provider UnavailMeek Grimes APRN Primary Care Provider [phone] Nico Hayward MD Unavailable [phone] Ryan Rice MD Unavailable [phone] Encounter Details Date Type Department Care Team (Late st Contact Info) Description 02/22/2022 Orders Only External Location [address] [place] [address] Ryan Rice MD [address] [address] Social History Tobacco Use Types [...] Info) Description 11/20/2024 4:00 PM EDT Consult [place] [facility] [address] 1[address] [place] [address] Chris Gramajo MD [address] [place] [address] 12/27/2024 11:20 AM EDT Office Visit [facility] [address] [place] [address] Gabriella Brand APRN [address] [facility] [address] [place] [address] documented as of this encounter [...] on filedocumented in this encounter Care Teams Abrasive Mixer Helper Relationship Specialty Start Date End Date Nico Hayward MD [address] [place] [address] PCP - General 07/17/20 05/14/24 Pcp, Vanessa [address] [place] [address] PCP - General Family Medicine 05/15/24 05/16/24 Meek Lucio APRN [address] [place] [id number] PCP - General 05/17/24 Nico Hayward MD [address] [place] [address] 05/15/24 Ryan Rice MD [address] [place] [id number] Referring Physician Cardiology 03/21/22 documented as of this encounter
--- OUTSIDE RECORDS SUMMARY | 2024-10-18 13:53 | XMS_ITS | Clinical Summary ---
Author Organization [facility] Address [address] [place] [address] Care Team Providers Care Dealer Card Room Name Role Phone Meek Lucio APRN Primary Care Provider [phone] Nico Hayward MD Unavailable [phone] Ryan Rice MD Unavailable [phone] Allergies Active Allergy Reactions Criticality Noted Date [...] Medium 11/30/2010 hives Morphine Hallucinations Medium 05/15/2024 [place] Hives Medium 09/09/2019 Medications Trelegy Ellipta 100-62.5-25 [...] Resume home medications as appropriate History of [place] (myocardial infarction) 05/15/2024 Overview (05/15/2024): Resume home medications as appropriate History of CVA (cerebrovascular accident) 2024 Overview (05/15/2024): Complicates all aspects of care. Unsure deficits Paroxysmal atrial fibrillation 05/15/2024 Overview (05/15/2024): Rate/rhythm control strategy with beta blockers Thromboembolic risk as assessed by [id number] Anticoagulation plan pending Would keep electrolytes at [...] Description 09/27/2024 9:40 AM EDT Office Visit [facility] [address] [place] [address] Gabriella Brand APRN JIN (acute kidney injury) ([facility]) (Primary Dx); Acquired solitary kidney; Stage 3 chronic kidney disease, unspecified whether stage 3a or 3b CKD ([facility]); Essential hypertension; Chronic kidney disease-mineral and bone disorder 09/27/2024 Travel 08/07/2024 Orders Only [facility] [address] [place], [place] [address] Nannette Leslei JIN (acute kidney injury) ([facility]) (Primary Dx); Vitamin D insufficiency from Last [...] any time in the past 12 m [facility], were you homeless or [...] [facility] [address], 1st [place] [address] Chris Gramajo MD [address] [place] [address] 12/27/2024 11:20 AM EDT Office Visit [facility] [address] [place] [address] Gabriella Brand, CERTIFICATION TECHNICIAN [address] [facility] [address] [place] [address] Health Maintenance Due Date Last [...] - Risk 60-74 years 1-dose series) 2014 [id number]-32 Vaccine (1 - season) 2023 UKY-Influenza Vaccine [...] this topic Medical Devices Implanted Type Area Lard Tub Washer Device Identifier Shelf Expiration Date Model / [...] Adults <6.0% Children and Adolescents <7.5% Source: [place] [employer]. Standards of medical care in diabetes,2017. Diabetes Care.2017:40 (suppl 1):S1-S135. HbA1c assay performed by an ion-exchange chromatography method that is certified traceable to the DCCT. us Violeta Monzon MD LAB BLOOD ORDERABLES Final Result [facility] [address] [place] [address] * Hepatitis C Antibody - ED (05/15/2024 3:03 PM EDT) Hepatitis C Antibody Negative Negative 05/15/2024 5:17 PM EDT [facility] Blood Venous blood specimen / Unknown Venipuncture / Unknown 05/15/2024 3:03 PM EDT 05/15/2024 3:34 PM EDT us Sury Villafuerte DO LAB BLOOD ORDERABLES Final Re sult [facility] [address] [place] [address] * CT Chest w IV Contrast (05/15/2024 [...] Relevant to Health Maintenance Insurance [address] MEDICARE Advance Directives Documents on File Type Date Recorded Patient Photographic Machine Operator Expl anation Advance Directives and Livin g Will 05/21/2024 9:23 AM Advance Directives and Livin g Will 03/17/2022 Power of Embossing Machine Operator 03/17/2022 * Full Code (Latest Code Status on File) Date Activated Date Inactivated Comments 05/15/2024 3:29 PM 05/20/2024 4:53 PM Decision mad e by POA * Full Code Date Activated Date Inactivated Comments 04/05/2022 4:18 PM 04/14/2022 6:20 PM Question Answer Comments Patient has decision-making capacity? Yes Care Teams Dealer Card Room Relationship Specialty Start Date End Date Meek Lucio APRN [address] [place] [address] PCP - General 05/17/24 Nico Hayward MD [address] [place] [address] 05/15/24 Ryan Rice MD [address] [address] Referring Physician Cardiology 03/21/22
--- OUTSIDE RECORDS SUMMARY | 2024-10-18 13:53 | XMS_ITS | Encounter Summary ---
Author Organization [facility] Address [address] [place] [address] Care Team Providers Care Stamping Press Operator Name Role Phone Meek Lucio APRN Primary Care Provider [phone] Nico Hayward MD Unavailable [phone] Ryan Rice MD Unavailable [phone] Encounter Details Date Type Department Care Team [...] any time in the past 12 m [facility], were you homeless or living in a assisted (including now)? No 05/17/2024 Utilities Answer Date [...] Consult [place] [facility] [address], [address] [place] [address] Chris Gramajo MD [address] [place] [address] 12/27/2024 11:20 AM EDT Office Visit [facility] [address] [facility] [address] [place] [address] Gabriella Brand, CONFERENCE COORDINATOR [address] [facility] [address] [place] [address] documented as of this encounter Visit Diagnoses Not on filedocumented in this encounter Additional Health Concerns Assessment Noted Time A fall risk assessment has been complete d for the patient 05/05/2022 2:35 PM EST A Body Mass Index follow-up plan has been documented for the patient 09/27/2024 10:19 AM EDT documented as of this encounter Care Teams Stamping Press Operator Relationship Specialty Start Date End Date Meek Lucio, CONFERENCE COORDINATOR [address] [place] [address] PCP - General 05/17/24 Nico Hayward MD [address] [place] [address] 05/15/24 Ryan Rice MD [address] [facility] [address] [place] [address] Referring Physician Cardiology 03/21/22 documented as of this encounter
[2024-10-18 16:02] LABS: PHA INR Fingerstick 2.2 (0.9-1.1)
== END 2024-10-18 16:14 ==
LOC: ACC 13:51
PROVIDERS: PCP Nurse Practitioner Family; Visit Provider Physician Assistant
DX: I48.91 Unspecified atrial fibrillation (principal)
CPT/HCPCS: 85610; 99211; G0463

== ENCOUNTER 2024-10-28 13:08 | Outpatient (CLI) | payer MEDICARE, SELFPAY ==
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
--- OUTSIDE RECORDS SUMMARY | 2024-10-28 13:11 | XMS_ITS | Encounter Summary ---
Author Organization [facility] Address [address] [place] [address] Care Team Providers Care Publications Distribution Clerk Name Role Phone Pcp, No Primary Care Provider UnavailMeek Grimes APRN Primary Care Provider Nico Hayward MD Unavailable [phone] Ryan Rice MD Unavailable [phone] Encounter Details Date Type Department Care Team (Late st Contact Info) Description 05/15/2024 Lab Requisition [facility] [address] [place] [address] Mauro Egan MD [address] [facility] [address] [place] [address] Encounter for general adult medical [...] Info) Description 11/20/2024 4:00 PM EDT Consult [facility] [address], 1st [place] [address] Chris Gramajo MD [address] [facility] [address] [place] [address] 12/27/2024 11:20 AM EDT [facility] [address] [place] [address] Gabriella Brand, MANAGER BASKETBALL [address] [facility] [address] [place] [address] documented as of this encounter Procedures Procedure Name Priority Date/Time Associated Diagnosis Comments ETTA AURIS SURVEILLANCE BY PCR Routine 05/15/2024 5:30 PM EDT Encounter for general adult medical examination without abnormal findings documented in this encounter Results * Etta auris Surveillance by PCR (05/15/2024 5:30 PM EDT) Etta auris PCR Result Not Detected Not Detected 05/16/2024 2:03 PM EDT [facility] Swab (Axilla and Groin) 05/15/2024 5:30 PM EDT 05/15/2024 5:48 PM EDT Narrative [facility] - 05/16/2024 2:03 PM EDT This PCR assay was developed and its performance characteristics determined by [facility] as appropriate for clinical purposes. This assay has not been cleared or approved by the FDA, but is performed in a CLIA regulated laboratory that is qualified to perform high-complexity testing. us Mauro Egan MD LAB MICROBIOLOGY - GEN ERAL ORDERABLES Final Result [facility] [address] [place] [address] documented in this encounter Visit Diagnoses Diagnosis [...] documented as of this encounter Care Teams Publications Distribution Clerk Relationship Specialty Start Date End Date Pcp, No [address] [place] [address] PCP - General Family Medicine 05/15/24 05/16/24 Meek Lucio APRN [address] [place] [address] PCP - General 05/17/24 Nico Hayward MD [address] [place] [address] 05/15/24 Ryan Rice MD 1210 [facility] [address] [place] [address] Referring Physician Cardiology 03/21/22 documented as of this encounter
--- OUTSIDE RECORDS SUMMARY | 2024-10-28 13:11 | XMS_ITS | Encounter Summary ---
Author Organization [facility] Address [address] [place] [address] Care Team Providers Care Retail Sales Merchandiser Name Role Phone Nico Hayward MD Primary Care Provider + [phone] Pcp, No Primary Care Provider UnavailMeek Grimes APRN Primary Care Provider [phone] Nico Hayward MD Unavailable [phone] Ryan Rice MD Unavailable [phone] Encounter Details Date Type Department Care Team (Late st Contact Info) Description 02/22/2022 Orders Only External Location [address] [place] [address] Ryan Rice MD [address] [address] Social History Tobacco Use Types [...] Info) Description 11/20/2024 4:00 PM EDT Consult [place] [facility] [address], 1[address] [place] [address] Chris Gramajo MD [address] [place] [address] 12/27/2024 11:20 AM EDT Office Visit [facility] [address] [place] [address] Gabriella Brand, BERNARDINO [address] [facility] [address] [place] [address] documented as of this encounter Procedures Procedure Name Priority Date/Time Associated Diagnosis Comments VAS US CAROTID DUPLEX BILATERAL 02/22/2022 11:18 AM EST documented in this encounter Results * VAS US Carotid Duplex Bilateral (02/22/2022 11:18 AM EST) Anatomical Region Laterality Modality Head, Neck, Vascular Ultrasound 02/22/2022 11:1 8 AM EST us Ryan Riec MD CV VASCULAR PROCEDURES Fin al Result documented in this encounter Visit Diagnoses Not on filedocumented in this encounter Care Teams Retail Sales Merchandiser Relationship Specialty Start Date End Date Nico Hayward MD [address] [place] [address] PCP - General 07/17/20 05/14/24 Pcp, Vanessa [address] [place] [address] PCP - General Family Medicine 05/15/24 05/16/24 Meek Lucio APRN [address] [place] [address] PCP - General 05/17/24 Nico Hayward MD [address] [place] [address] 05/15/24 Ryan Rice MD [address] [address] Referring Physician Cardiology 03/21/22 documented as of this encounter
--- OUTSIDE RECORDS SUMMARY | 2024-10-28 13:11 | XMS_ITS | Encounter Summary ---
Author Organization [facility] Address [address] [place] [address] Care Team Providers Care Change Release Manager Name Role Phone Nico Hayward MD Primary Care Provider + [phone] Pcp, No Primary Care Provider UnavailMeek Grimes APRN Primary Care Provider [phone] Nico Hayward MD Unavailable [phone] Ryan Rice MD Unavailable [phone] Encounter Details Date Type Department Care Team (Late st Contact Info) Description 02/22/2022 Orders Only External Location [address] [place] [address] Ryan Rice MD [address] [address] Social History Tobacco Use Types [...] Info) Description 11/20/2024 4:00 PM EDT Consult [place] [facility] [address], 1[address] [place] [address] Chris Gramajo MD [address] [place] [address] 12/27/2024 11:20 AM EDT Office Visit [facility] [address] [place] [address] Gabriella Brand APRN [address] [facility] [place] [address] [place] [address] documented as of this encounter [...] on filedocumented in this encounter Care Teams Change Release Manager Relationship Specialty Start Date End Date Nico Hayward MD [address] [place] [address] PCP - General 07/17/20 05/14/24 Pcp, Vanessa [address] [place] [address] PCP - General Family Medicine 05/15/24 05/16/24 Meek Lucio APRN [address] [place] [phone] PCP - General 05/17/24 Nico Hayward MD [address] [place] [address] 05/15/24 Ryan Rice MD [address] [place] [id number] Referring Physician Cardiology 03/21/22 documented as of this encounter
--- OUTSIDE RECORDS SUMMARY | 2024-10-28 13:11 | XMS_ITS | Clinical Summary ---
Author Organization [facility] Address [address] [place] [address] Care Team Providers Care Subgrade Tester Name Role Phone Meek Lucio APRN Primary Care Provider +[phone] Nico Hayward MD Unavailable [phone] Ryan Rice MD Unavailable [phone] Allergies Active Allergy Reactions Criticality Noted Date [...] Medium 11/30/2010 hives Morphine Hallucinations Medium 05/15/2024 Hestand Hives Medium 09/09/2019 Medications Trelegy Ellipta 100-62.5-25 MCG/ACT aerosol powder INHALE 1 PUFF BY MOUTH EVERY DAY FOR copd 05/20/2022 Active aspirin 81 MG EC tablet Take [...] mg) in the evening. 60 tablet 2 05/20/2024 Active spironolactone (Aldactone) 25 MG tablet Take 1 tablet (25 mg) by mouth daily. 30 each 2 05/21/2024 Active valsartan (Diovan) 80 MG tablet Take 1 tablet by mouth daily. Active clopidogrel (Plavix) 75 MG tablet Take 1 tablet by mouth daily. Active warfarin (Coumadin) 2.5 MG tablet Take 1 tablet by mouth daily. Takes 2.5 Monday and Monday Active warfarin (Coumadin) 5 MG tablet Take 1 tablet by mouth daily. Take as directed per After Visit Summary. Active Active Problems Problem Noted Date Diagnosed [...] Resume home medications as appropriate History of [place] (myocardial infarction) 05/15/2024 Overview (05/15/2024): Resume home medications as appropriate History of CVA (cerebrovascular accident) 2024 Overview (05/15/2024): Complicates all aspects of care. Unsure deficits Paroxysmal atrial fibrillation 05/15/2024 Overview (05/15/2024): Rate/rhythm control strategy with beta blockers Thromboembolic risk as assessed by [id number] Anticoagulation plan pending Would keep electrolytes at [...] Date Diagnosed Date Resolved Date Physical deconditioning 04/12/202211/2022 Overview (04/12/2022): Encourage ambulation - PT/OT - [...] Description 09/27/2024 9:40 AM EDT Office Visit [facility] [address] [address] Gabriella Brand APRN JIN (acute kidney injury) ([facility]) (Primary Dx); Acquired solitary kidney; Stage 3 chronic kidney disease, unspecified whether stage 3a or 3b CKD ([facility]); Essential hypertension; Chronic kidney disease-mineral and bone disorder 09/27/2024 Travel 08/07/2024 Orders Only [facility] [address] [address] Nannette Leslie JIN (acute kidney injury) ([facility]) (Primary Dx); Vitamin D insufficiency [...] any time in the past 12 m [facility], were you homeless or living in a jail (including now)? No 05/17/2024 Utilities Answer Date [...] Job Start Date Job End Date retired [employer] Not on file Not on file Not [...] Consult [place] [facility] [address], 1[address] [place] [address] Chris Gramajo MD [address] [place] [address] 12/27/2024 11:20 AM EDT Office Visit [facility] [address] [place] [address] Gabriella Brand, BRIMMER BLOCKER [address] [facility] [address] [place] [address] Health Maintenance Due Date Last [...] - Risk 60-74 years 1-dose series) 2014 [id number] Vaccine (1 - season) 2023 UKY-Influenza Vaccine [...] this topic Medical Devices Implanted Type Area Shot Polisher Device Identifier Shelf Expiration Date Model / [...] 4.5 <5.7 % 05/16/2024 2:38 AM EDT [facility] Blood Venous blood specimen / Unknown Venipuncture / Unknown 05/16/2024 2:07 AM EDT 05/16/2024 2:15 AM EDT Narrative [facility] - 05/16/2024 2:38 AM EDT HA1C Interpretive Data: Diagnosis of Diabetes: Diabetic > or = 6.5% Pre-diabetic 5.7 to 6.4% Non-diabetic < or = 5.6% Glycemic Targets for Type I and Type II Diabetics: Non- Adults <7.0% Adults <6.0% Children and Adolescents <7.5% Source: [place] [employer]. Standards of medical care in diabetes,2017. Diabetes Care.2017:40 (suppl 1):S1-S135. HbA1c assay performed by an ion-exchange chromatography method that is certified traceable to the DCCT. us Violeta Monzon MD LAB BLOOD ORDERABLES Final Result Performing Organization Address City/[facility]/ZIP Co de Phone Number [facility] [address] [place] [address] * Hepatitis C Antibody - ED (05/15/2024 3:03 PM EDT) Hepatitis C Antibody Negative Negative 05/15/2024 5:17 PM EDT [facility] Blood Venous blood specimen / Unknown Venipuncture / Unknown 05/15/2024 3:03 PM EDT 05/15/2024 3:34 PM EDT us Sury Villafuerte DO LAB BLOOD ORDERABLES Final Re sult Performing Organization Address [facility]/ZIP Co de Phone Number [facility] [address] [place] [address] * CT Chest w IV Contrast (05/15/2024 [...] 2.7 cm lesion of the left adrenal (/387). No aggressive osseous lesions or acute findings. [...] cm heterogeneous nodule lower pole left thyroid (/64,6) with less heterogeneous appearing 2.5 cm nodule caudal medially(/). Small to moderate posterior layering left pleural [...] Most Recently Relevant to Health Maintenance Insurance [facility] MEDICARE Advance Directives Documents on File Type Date Recorded Patient Metal Spray Operator Expl anation Advance Directives and Livin g Will 05/21/2024 9:23 AM Advance Directives and Livin g Will 03/17/2022 Power of Pipe Turner 03/17/2022 * Full Code (Latest Code Status on File) Date Activated Date Inactivated Comments 05/15/2024 3:29 PM 05/20/2024 4:53 PM Decision mad e by POA * Full Code Date Activated Date Inactivated Comments 04/05/2022 4:18 PM 04/14/2022 6:20 PM Question Answer Comments Patient has decision-making capacity? Yes Care Teams Subgrade Tester Relationship Specialty Start Date End Date Meek Lucio APRN [address] [place] [address] PCP - General 05/17/24 Nico Hayward MD [address] [place] [address] 05/15/24 Ryan Rice MD [address] [facility] [address] [place] [address] Referring Physician Cardiology 03/21/22
--- OUTSIDE RECORDS SUMMARY | 2024-10-28 13:11 | XMS_ITS | Encounter Summary ---
Author Organization [facility] Address [address] [place] [address] Care Team Providers Care Grape Grower Name Role Phone Nico Hayward MD Primary Care Provider + [phone] Pcp, No Primary Care Provider UnavailMeek Grimes APRN Primary Care Provider [phone] Nico Hayward MD Unavailable [phone] Ryan Rice MD Unavailable [phone] Encounter Details Date Type Department Care Team (Late st Contact Info) Description 04/11/2022 Lab Requisition [facility] [address] [place] [address] Valentin Aviles MD [address] [facility] 7th [facility] [address] [place] [address] Encounter for general adult medical examination without [...] Info) Description 11/20/2024 4:00 PM EDT Consult [place] [facility] [address], 1st [place] [address] Chris Gramajo MD [address] [facility] [address] [place] [address] 12/27/2024 11:20 AM EDT Office Visit [facility] [address] [place] [address] Gabriella Brand, CASHIER OFFICE [address] [facility] [address] [place] [phone] documented as of this encounter Procedures Procedure Name Priority Date/Time Associated Diagnosis Comments MULTI DRUG RESISTANCE TEST Routine 04/11/2022 8:00 PM EST Encounter for general adult medical examination without abnormal findings documented in this encounter Results * Multi Drug Resistance Test (04/11/2022 8:00 PM EST) Culture No growth at day 2 04/13/2022 9:20 AM EST [facility] Swab (Nares and Zoraida Rectal) 04/11/2022 8:00 PM EST 04/11/2022 9:54 PM EST us Valentin Schulz MD LAB MICROBIOLOGY - GENERAL ORDERABLES Final Result [facility] [address] [place] [address] documented in this encounter Visit Diagnoses Diagnosis Encounter for general adult medical examination without abnormal findings documented in this encounter Additional Health Concerns Assessment Noted Time A fall risk assessment has been complete d for the patient 03/17/2022 9:15 AM EST documented as of this encounter Care Teams Grape Grower Relationship Specialty Start Date End Date Nico Hayward MD [address] [place], [place] [id number] PCP - General 07/17/20 05/14/24 Pcp, [address] [address] PCP - General Family Medicine 05/15/24 05/16/24 Meek Lucio APRN [address] [place] [address] PCP - General 05/17/24 Nico Hayward MD [address] [place] [address] 05/15/24 Ryan Rice MD 1210 [facility] [address] Referring Physician Cardiology 03/21/22 documented as of this encounter
--- OUTSIDE RECORDS SUMMARY | 2024-10-28 13:11 | XMS_ITS | Encounter Summary ---
Author Organization [facility] Address [address] [place] [address] Care Team Providers Care Back Feeder Plywood Layup Line Name Role Phone Meek Lucio APRN Primary Care Provider [phone] Nico Hayward MD Unavailable [phone] Ryan Rice MD Unavailable [phone] Encounter Details Date Type Department Care Team [...] any time in the past 12 m [facility], were you homeless or living in [...] Consult [place] [facility] [address], 1st [place] [address] Chris Gramajo MD [address] [place] [address] 12/27/2024 11:20 AM EDT Office Visit [facility] [address] [facility] [address] [place] [address] Gabriella Brand, DIRECTOR CORPORATE COMPLIANCE [address] [facility] [address] [place] [address] documented as of this encounter Visit Diagnoses Not on filedocumented in this encounter Additional Health Concerns Assessment Noted Time A fall risk assessment has been complete d for the patient 05/05/2022 2:35 PM EST A Body Mass Index follow-up plan has been documented for the patient 09/27/2024 10:19 AM EDT documented as of this encounter Care Teams Back Feeder Plywood Layup Line Relationship Specialty Start Date End Date Meek Lucio, DIRECTOR CORPORATE COMPLIANCE [address] [place] [address] PCP - General 05/17/24 Nico Hayward MD [address] [place] [address] 05/15/24 Ryan Rice MD 1210 [facility] 36 [place] [address] Referring Physician Cardiology 03/21/22 documented as of this encounter
[2024-10-28 14:09] LABS: Anion Gap 14.3 mEq/L (5-15); Blood Urea Nitrogen 38 mg/dl (7-17); Calcium 9.5 mg/dl (8.4-10.2); Carbon Dioxide 25 mmol/L (22.0-30.0); Chloride 104 mmol/L (98-107); Creatinine,Serum 1.80 mg/dl (0.52-1.04); Estimated Glomerular Filt Rate 28 ml/min (>60); GFR (African American) 34 ML/MIN (>60); Glucose 128 mg/dl (74-100); Potassium 4.3 mmoL/L (3.5-5.1); Sodium 139 mmol/L (136-145)
[2024-10-28 14:20] LABS: NT Pro Brain Natriuretic Pep. 1100 pg/mL (0-125)
== END 2024-10-28 23:59 | disposition home or self-care (01) ==
LOC: LAB 13:08
PROVIDERS: PCP Nurse Practitioner Family; Visit Provider Physician Assistant
DX: I50.20 Unspecified systolic (congestive) heart failure (principal); N18.9 Chronic kidney disease, unspecified
CPT/HCPCS: 36415; 80048; 83880

== ENCOUNTER 2024-11-21 12:45 | Outpatient (CLI) | payer MEDICARE, SELFPAY ==
--- OUTSIDE RECORDS SUMMARY | 2024-09-27 09:40 | XMS_ITS | Encounter Summary ---
Author Organization [facility] Address [address] [place] [address] Care Team Providers Care Ux Interaction Designer Name Role Phone Meek Lucio APRN Primary Care Provider [phone] Nico Hayward MD Unavailable [phone] Ryan Rice MD Unavailable [phone] Reason for Referral * Consultation (Routine) - Authorized Specialty Diagnoses / Procedures Referred By Contjeff t Referred To Contact Diagnoses JIN (acute kidney injury) ([facility]) Gabriella Brand APRN [address] [facility] [address] [place] [address] Phone: tel: fax: Referral ID Status Reason Start Date Expiration Date V isits Requested Visits Authorized [id number] Authorized 09/27/2024 03/29/2026 1 1 Reason for Visit * Consultation (Routine) - Closed Specialty Diagnoses / Procedures Referred By Jeff staton Referred To Contact Nephrology Diagnoses Disorder of kidney and ureter, unspecified Benedict Porter MD [address] [place] [address] Phone: tel: fax: [facility] Nephrology, Bone & Mineral Metabolism [address] [facility], [address] [place] [address] Phone: tel: fax: Referral ID Status Reason Start Date Expiration Date V isits Requested Visits Authorized [id number] Closed Specialty Services Required 08/05/2024 02/04/2026 1 1 Encounter Details Date Type Department Care Team ([facility] st Contact Info) Description 09/27/2024 9:40 AM EDT Office Visit [facility] [address] [place] [address] Gabriella Brand, BERNARDINO [address] [facility] [address] [place] [phone] JIN (acute kidney injury) (CMS/HCC) (Primary [...] any time in the past 12 m [facility], were you homeless or living in a [...] Labs scanned in to media tab of [employer] from an outside facility. Labs completed on [...] with concurrent aldactone use. Discussed case with [facility] Cardiology. Patient with low renal reserve with [...] Care Team (Late st Contact Info) Description 12/27/2024 11:20 AM EDT Office Visit [address] [place] [address] Gabriella Brand APRN [address] [address] Scheduled Orders Name Type Priority Associated Diagnoses Orde r Schedule CBC W/O Differential Lab Routine JIN (acute kidney injury) ([facility]) Expected: 09/27/2024 (Approximate), Expires: 03/30/2026 Protein, Random, Urine with Creatinine Lab Routine JIN (acute kidney injury) ([facility]) Expected: 09/27/2024 (Approximate), Expires: 03/30/2026 PTH Intact Total Lab Routine JIN (acute kidney injury) ([facility]) Stage 3 chronic kidney disease, unspecified whether stage 3a or 3b CKD ([facility]) Expected: 09/27/2024 (Approximate), Expires: 03/30/2026 Renal Function Panel, Plasma Lab Routine JIN (acute kidney injury) ([facility]) Expected: 09/27/2024 (Approximate), Expires: 03/30/2026 Urinalysis with reflex microscopic (Culture NOT Included) Lab Routine JIN (acute kidney injury) ([facility]) Stage 3 chronic kidney disease, unspecified whether stage 3a or 3b CKD ([facility]) Expected: 09/27/2024 (Approximate), Expires: 03/30/2026 Vitamin D 25 Hydroxy Lab Routine JIN (acute kidney injury) ([facility]) Stage 3 chronic kidney disease, unspecified whether stage 3a or 3b CKD ([facility]) Expected: 09/27/2024 (Approximate), Expires: 03/30/2026 Scheduled Referrals Name Type Priority Associated Diagnoses Order Schedule Follow Up Nephrology Outpatient Referral Routine JIN (acute kidney injury) ([facility]) Expected: 12/28/2024 (Approximate), Expires: 10/28/2025 documented as of this encounter Visit Diagnoses Diagnosis JIN (acute kidney injury) ([facility])- Primary Acquired solitary kidney Acquired absence of kidney Stage 3 chronic kidney disease, unspecified whether stage 3a or 3b CKD ([facility]) Essential hypertension Unspecified essential hypertension Chronic kidney disease-mineral and bone disorder documented in this encounter Additional Health Concerns Assessment Noted Time A fall risk assessment has been complete d for the patient 05/05/2022 2:35 PM EST A Body Mass Index follow-up plan has been documented for the patient 09/27/2024 10:19 AM EDT documented as of this encounter Care Teams Ux Interaction Designer Relationship Specialty Start Date End Date Meek Lucio APRN [address] [place] [address] PCP - General 05/17/24 Nico Hayward MD [address] [facility] [place], [place] [address] 05/15/24 Ryan Rice MD [address] [place] [address] Referring Physician Cardiology 03/21/22 documented as of this encounter
--- OUTSIDE RECORDS SUMMARY | 2024-11-21 12:48 | XMS_ITS | Encounter Summary ---
Author Organization [facility] Address [address] [place] [address] Care Team Providers Care Diamond Grinder Name Role Phone Nico Hayward MD Primary Care Provider + [phone] Pcp, No Primary Care Provider UnavailMeek Grimes APRN Primary Care Provider [phone] Nico Hayward MD Unavailable [phone] Ryan Rice MD Unavailable [phone] Encounter Details Date Type Department Care Team (Late st Contact Info) Description 04/11/2022 Lab Requisition [facility] [address] [place] [address] Valentin Aviles MD [address] [facility] 7th [facility] [address] [place] [address] Encounter for general adult medical examination without [...] Description 12/27/2024 11:20 AM EDT Office Visit [facility] [address] [place] [address] Gabriella Brand, CARDIAC REHABILITATION SPECIALIST [address] [address] documented as of this encounter Procedures [...] 8:00 PM EST 04/11/2022 9:54 PM EST Valentin Schulz MD LAB MICROBIOLOGY - GENERAL ORDERABLES Final Result [facility] [address] [place] [address] documented in this encounter Visit Diagnoses Diagnosis Encounter for general adult medical examination without abnormal findings documented in this encounter Additional Health Concerns Assessment Noted Time A fall risk assessment has been complete d for the patient 03/17/2022 9:15 AM EST documented as of this encounter Care Teams Diamond Grinder Relationship Specialty Start Date End Date Nico Hayward MD [address] [place] [address] PCP - General 07/17/20 05/14/24 Pcp, [place] [address] PCP - General Family Medicine 05/15/24 05/16/24 Meek Lucio APRN [address] [place] [address] PCP - General 05/17/24 Nico Hayward MD [address] [place] [address] 05/15/24 Ryan Rice MD 1210 [facility] [address] [place] [address] Referring Physician Cardiology 03/21/22 documented as of this encounter
--- OUTSIDE RECORDS SUMMARY | 2024-11-21 12:48 | XMS_ITS | Encounter Summary ---
Author Organization [facility] Address [address] [place] [address] Care Team Providers Care Director Informatics Name Role Phone Meek Lucio APRN Primary Care Provider [phone] Nico Hayward MD Unavailable [phone] Ryan Rice MD Unavailable [phone] Encounter Details Date Type Department Care Team [...] were you homeless or living in a nursing home (including now)? No 05/17/2024 Utilities Answer [...] Description 12/27/2024 11:20 AM EDT Office Visit [facility] [address] [address] Gabriella Brand, RECONNAISSANCE CREWMEMBER [address] [address] documented as of this encounter Visit Diagnoses Not on filedocumented in this encounter Additional Health Concerns Assessment Noted Time A fall risk assessment has been complete d for the patient 05/05/2022 2:35 PM EST A Body Mass Index follow-up plan has been documented for the patient 09/27/2024 10:19 AM EDT documented as of this encounter Care Teams Director Informatics Relationship Specialty Start Date End Date Meek Lucio, BERNARDINO [address] [place] [address] PCP - General 05/17/24 Nico Hayward MD [address] [place] [address] 05/15/24 Ryan Rice MD 1210 [facility] [address] [place] [address] Referring Physician Cardiology 03/21/22 documented as of this encounter
--- OUTSIDE RECORDS SUMMARY | 2024-11-21 12:48 | XMS_ITS | Encounter Summary ---
Author Organization [facility] Address [address] [place] [address] Care Team Providers Care Dental Equipment Installer And Servicer Name Role Phone Nico Hayward MD Primary Care Provider + [phone] Pcp, No Primary Care Provider UnavailMeek Grimes APRN Primary Care Provider [phone] Nico Hayward MD Unavailable [phone] Ryan Rcie MD Unavailable [phone] Encounter Details Date Type Department Care Team (Late st Contact Info) Description 02/22/2022 Orders Only External Location [address] [place] [address] Ryan Rice MD [address] [address] Social History Tobacco Use Types [...] Description 12/27/2024 11:20 AM EDT Office Visit [facility] [address] [place] [address] Gabriella Brand, ASSOCIATE PROGRAM MANAGER [address] [phone] documented as of this encounter Procedures Procedure [...] on filedocumented in this encounter Care Teams Dental Equipment Installer And Servicer Relationship Specialty Start Date End Date Nico Hayward MD [address] [place] [address] PCP - General 07/17/20 05/14/24 Pcp, [address] [address] PCP - General Family Medicine 05/15/24 05/16/24 Meek Lucio, ASSOCIATE PROGRAM MANAGER [address] [place] [address] PCP - General 05/17/24 Nico Hayward MD [address] [place] [address] 05/15/24 Ryan Rice MD [address] [facility] [address] [place] [address] Referring Physician Cardiology 03/21/22 documented as of this encounter
--- OUTSIDE RECORDS SUMMARY | 2024-11-21 12:48 | XMS_ITS | Clinical Summary ---
Author Organization [facility] Address [address] [place] [address] Care Team Providers Care Machinist 2Nd Shift Name Role Phone Meek Lucio APRN Primary Care Provider [phone] Nico Hayward MD Unavailable [phone] Ryan Rice MD Unavailable [phone] Allergies Active Allergy Reactions Criticality Noted Date [...] Medium 11/30/2010 hives Morphine Hallucinations Medium 05/15/2024 Blessing Hives Medium 09/09/2019 Medications Trelegy Ellipta 100-62.5-25 [...] Resume home medications as appropriate History of [place] (myocardial infarction) 05/15/2024 Overview (05/15/2024): Resume home medications as appropriate History of CVA (cerebrovascular accident) 2024 Overview (05/15/2024): Complicates all aspects of care. Unsure deficits Paroxysmal atrial fibrillation 05/15/2024 Overview (05/15/2024): Rate/rhythm control strategy with beta blockers Thromboembolic risk as assessed by [id number] Anticoagulation plan pending Would keep electrolytes at [...] Description 09/27/2024 9:40 AM EDT Office Visit [facility] [place] [address] Gabriella Brand APRN JIN (acute kidney injury) ([facility]) (Primary Dx); Acquired solitary kidney; Stage 3 chronic kidney disease, unspecified whether stage 3a or 3b CKD ([facility]); Essential hypertension; Chronic kidney disease-mineral and bone disorder 09/27/2024 Travel from Last 3 Months Immunizations Immunization [...] time in the past 12 m [facility], were you homeless or living in a penitentiary (including now)? No 05/17/2024 Utilities Answer Date [...] Job Start Date Job End Date retired [employer] Not on file Not on file Not [...] Description 12/27/2024 11:20 AM EDT Office Visit [facility] [address] [place] [address] Gabriella Brand, INCIDENT RESPONSE COORDINATOR [address] [facility] [address] [place] [address] Health Maintenance Due Date Last [...] - Risk 60-74 years 1-dose series) 2014 [id number] Vaccine (1 - season) 2024 UKY-Influenza Vaccine (#1) 2024 11/05/2011 UKY-Diabetes: Hemoglobin [...] this topic Medical Devices Implanted Type Area Air Compressor Operator Device Identifier Shelf Expiration Date Model / [...] 4.5 <5.7 % 05/16/2024 2:38 AM EDT [facility] Blood Venous blood specimen / Unknown Venipuncture / Unknown 05/16/2024 2:07 AM EDT 05/16/2024 2:15 AM EDT Narrative [facility] - 05/16/2024 2:38 AM EDT HA1C Interpretive Data: Diagnosis of Diabetes: Diabetic > or = 6.5% Pre-diabetic 5.7 to 6.4% Non-diabetic < or = 5.6% Glycemic Targets for Type I and Type II Diabetics: Non- Adults <7.0% Adults <6.0% Children and Adolescents <7.5% Source: [place] [employer]. Standards of medical care in diabetes,2017. Diabetes Care.2017:40 (suppl 1):S1-S135. HbA1c assay performed by an ion-exchange chromatography method that is certified traceable to the DCCT. us Izad-Pablo D Nicolás MD LAB BLOOD ORDERABLES Final Result [facility] [address] [place] [address] * Hepatitis C Antibody - ED (05/15/2024 3:03 PM EDT) Hepatitis C Antibody Negative Negative 05/15/2024 5:17 PM EDT [facility] Blood Venous blood specimen / Unknown Venipuncture / Unknown 05/15/2024 3:03 PM EDT 05/15/2024 3:34 PM EDT Surywilfredo Villafuerte LAB BLOOD ORDERABLES Final Re sult Performing Organization Address City/[facility]/ZIP Co de Phone Number [facility] [address] [place] [address] * CT Chest w IV Contrast (05/15/2024 [...] MD on 05/15/2024 3:43 PM us Sury Villafuerte DO IMG CT PROCEDURES Final Resul t from Last 3 Months or Most Recently Relevant to Health Maintenance Insurance MEDICARE Advance Directives Documents on File Type Date Recorded Patient Customer Marketing Manager Expl anation Advance Directives and Livin g Will 05/21/2024 9:23 AM Advance Directives and Livin g Will 03/17/2022 Power of Photovoltaic Subcontractor 03/17/2022 * Full Code (Latest Code Status on File) Date Activated Date Inactivated Comments 05/15/2024 3:29 PM 05/20/2024 4:53 PM Decision mad e by POA * Full Code Date Activated Date Inactivated Comments 04/05/2022 4:18 PM 04/14/2022 6:20 PM Question Answer Comments Patient has decision-making capacity? Yes Care Teams Machinist 2Nd Shift Relationship Specialty Start Date End Date Meek Lucio, INCIDENT RESPONSE COORDINATOR [address] [place] [address] PCP - General 05/17/24 Nico Hayward MD [address] [place] [address] 05/15/24 Ryan Rice MD [address] [address] [place] [address] Referring Physician Cardiology 03/21/22
--- OUTSIDE RECORDS SUMMARY | 2024-11-21 12:48 | XMS_ITS | Encounter Summary ---
Author Organization [facility] Address [address] [place] [address] Care Team Providers Care Elevator Service Technician Name Role Phone Nico Hayward MD Primary Care Provider [phone] Pcp, No Primary Care Provider UnavailMeek Grimes APRN Primary Care Provider [phone] Nico Hayward MD Unavailable [phone] Ryan Rice MD Unavailable [phone] Encounter Details Date Type Department Care Team (Late st Contact Info) Description 02/22/2022 Orders Only External Location [address] [place] [address] Ryan Rice MD [address] [address] Social History Tobacco Use Types [...] Description 12/27/2024 11:20 AM EDT Office Visit [facility] [address] [place] [address] Gabriella Brand, [employer] DEPARTMENT MANAGER [address] [address] documented as of this encounter [...] on filedocumented in this encounter Care Teams Elevator Service Technician Relationship Specialty Start Date End Date Nico Hayward MD [address] [place] [address] PCP - General 07/17/20 05/14/24 Pcp, [place] [address] PCP - General Family Medicine 05/15/24 05/16/24 Meek Lucio, [employer]EN [employer]OD DEPARTMENT MANAGER [address] [place] [address] PCP - General 05/17/24 Nico Hayward MD [address] [place] [address] 05/15/24 Ryan Rice MD [address] [facility] [address] [place] [address] Referring Physician Cardiology 03/21/22 documented as of this encounter
--- OUTSIDE RECORDS SUMMARY | 2024-11-21 12:48 | XMS_ITS | Encounter Summary ---
Author Organization [facility] Address [address] [place] [address] Care Team Providers Care Goods Layer Name Role Phone Pcp, No Primary Care Provider UnavailMeek Grimes APRN Primary Care Provider Nico Hayward MD Unavailable [phone] Ryan Rice MD Unavailable [phone] Encounter Details Date Type Department Care Team (Late st Contact Info) Description 05/15/2024 Lab Requisition [facility] [address] [place] [address] Mauro Egan MD [address] [facility] [address] [place] [address] Encounter for general adult medical [...] time in the past 12 m [facility], were you homeless or living in a [...] Description 12/27/2024 11:20 AM EDT Office Visit [facility] [address] [facility] [address] [place] [address] Gabriella Brand, RADIATION SAFETY OFFICER [address] [address] documented as of this encounter Procedures Procedure Name Priority Date/Time Associated Diagnosis Comments ETTA AURIS SURVEILLANCE BY PCR Routine 05/15/2024 5:30 PM EDT Encounter for general adult medical examination without abnormal findings documented in this encounter Results * Etta auris Surveillance by PCR (05/15/2024 5:30 PM EDT) Etta auris PCR Result Not Detected Not Detected 05/16/2024 2:03 PM EDT [facility] Swab (Axilla and Groin) 05/15/2024 5:30 PM EDT 05/15/2024 5:48 PM EDT Narrative [facility] - 05/16/2024 2:03 PM EDT This PCR assay was developed and its performance characteristics determined by [facility] as appropriate for clinical purposes. This assay has not been cleared or approved by the FDA, but is performed in a CLIA regulated laboratory that is qualified to perform high-complexity testing. us Mauro Egan MD LAB MICROBIOLOGY - GEN ERAL ORDERABLES Final Result [facility] [address] [place] [address] documented in this encounter Visit Diagnoses Diagnosis [...] documented as of this encounter Care Teams Goods Layer Relationship Specialty Start Date End Date Pcp, No [address] [place] [address] PCP - General Family Medicine 05/15/24 05/16/24 Meek Lucio APRN [address] [place] [address] PCP - General 05/17/24 Nico Hayward MD [address] [place] [address] 05/15/24 Ryan Rice MD 1210 [facility] [address] [place] [address] Referring Physician Cardiology 03/21/22 documented as of this encounter
--- NOTE | 2024-11-21 13:00 | US_ITS ---
FINAL REPORT TECHNIQUE: Real-time grayscale and color ultrasound of the thyroid was performed. CLINICAL HISTORY: follow up TiRADS 3 nodule COMPARISON: 01/09/2023 FINDINGS: The thyroid gland measures 42 x 16 x 14 mm on the right and 53 x 35 x 33 mm on the left. The isthmus measures 5 mm. . Nodules: Mildly hyperechoic TR 3 posterior mid right lobe nodule measuring up to 9 mm previously measured up to 11 mm. Decrease in size is probably related to diminished cystic component when correlated with the prior exam. Second right nodule with a spongiform appearance measuring 8 mm is unchanged. On the left there are 2 dominant masses. The larger more heterogeneous lesion is classified as TR 3 measuring up to 27 x 27 x 25 mm and previously measured 39 x 30 x 26 mm. The smaller hyperechoic TR 3 lesion shows extensive new cystic degeneration and was previously entirely solid, measuring 17 mm in greatest dimension and previously measured 20 mm. IMPRESSION: Multinodular goiter with larger lesions decreased from the prior exam. Reviewed, Interpreted and Dictated by Parker Vail MD Transcribed by Tanvi Hunt Authenticated and [facility]
== END 2024-11-21 23:59 | disposition home or self-care (01) ==
LOC: RAD 12:46
PROVIDERS: PCP Student in an Organized Health Care Education/Training Program; Visit Provider Student in an Organized Health Care Education/Training Program
DX: E04.2 Nontoxic multinodular goiter (principal)
CPT/HCPCS: 76536

== ENCOUNTER 2024-11-28 14:29 | Outpatient (CLI) | payer MEDICARE, SELFPAY ==
[2024-11-28 14:56] LABS: INR 2.13 (0.9-1.1); Prothrombin Time 22.4 seconds (10.1-12.5)
== END 2024-11-28 23:59 | disposition home or self-care (01) ==
LOC: LAB 14:29
PROVIDERS: PCP Nurse Practitioner Family; Visit Provider Physician Assistant
DX: I48.91 Unspecified atrial fibrillation (principal); Z79.01 Long term (current) use of anticoagulants
CPT/HCPCS: 36415; 85610

== ENCOUNTER 2024-12-26 15:38 | Outpatient (CLI) | payer MEDICARE, SELFPAY ==
--- OUTSIDE RECORDS SUMMARY | 2024-12-26 15:42 | XMS_ITS | Continuity of Care Document ---
Author Organization [place] [facility] Address [address] [facility] [place] [address] Care Team Providers Care Academic Success Coordinator Name Role Phone MADELIN FOWLER Primary Care Provider [phone] Assessment Encounter Date Assessment Date Assessment LastModified by Organization Details LastModified Time 11/12/2024 11/12/2024 Evaluation and examination. Discussed podiatric pathology including treatment options with the patient and her daughter at length. [email or web address] Not available 11/12/2024 13:05:40 Plan of Treatment Reminders Order Date Submit Date Provider Last Modified By Organization Details Last Modified Time Details Appointments OV PROC 30 026 10:45AM Cher Nicole DPM Not available Not available Not available Lab None record ed. Referral None record ed. Procedures None record ed. Surgeries None record ed. Imaging None record ed. Medication Orders None record ed. Patient TargetsNo targets recorded. Patient Instructions Encounter Date Encounter Id Patient Instructions Last Modified By Organization Details Last Modified Time 11/12/2024 [id number] F/u 3 months [email or web address] Not available 09:55:23 Some of the information in this note was entered by the [facility] under the direction and training of the attending physician. I have reviewed the documentation of the encounter entered by the CAR RENTAL AGENT and attest that it is accurate. M*Modal front desk receptionist software was utilized to enter some information in this note and therefore may contain voice recognition errors. Intake and other documentation entered by Kika Woods CMA. [email or web address] Not available 11/12/2024 10:13:33 Reason for Referral None Reported. Procedures Surgical History Date Name Laterality Status Provider Name and Address Organization Details Recorded Time 09/09/202 5 Nail debridement (6-10) completed Mason Jiang [place] [facility] & [place] 11/12/2024 09:55:23 5 Nail debridement (6-10) completed Sury Johnson [place] [facility] & [place] 07/17/2024 10:42:47 Imaging Results None recorded. Procedure Notes None recorded. Medical Equipment None Reported. Medications Name Sig Start Date Stop Date Status Note LastModified by Organization Details LastModified Time furosemide 40 mg tablet TAKE 1 TABLET BY MOUTH TWICE DAILY active Not Available Not Available No t Available atorvastatin 80 mg tablet TAKE 1 TABLET BY MOUTH ONCE DAILY active Not Available Not Available No t Available azithromycin 250 mg tablet TAKE 2 TABLETS BY MOUTH ONCE DAILY AT 9 PM FOR 2 DAYS active Not Available Not Available No t Available valsartan 80 mg tablet TAKE 1 TABLET BY MOUTH ONCE DAILY active Not Available Not Available No t Available clopidogrel 75 mg tablet TAKE ONE TABLET BY MOUTH EVERY DAY active Not Available Not Available No t Available spironolacto ne 25 mg tablet TAKE 1 TABLET BY MOUTH ONCE DAILY active Not Available Not Available No t Available warfarin 5 mg tablet TAKE 1 TABLET BY MOUTH ONCE DAILY IN THE EVENING active Not Available Not Available Not Available clotrimazole 1 % topical solution APPLY TO TOENAILS DAILY UNTIL ABNORMAL APPEARANCE RESOLVED 2024 active Not Available Not Available Not Avai lable furosemide 20 mg tablet TAKE 1 TABLET BY MOUTH TWICE DAILY active Not Available Not Available No t Available metoprolol succinate ER 25 mg tablet,exten ded release 24 hr TAKE 1 TABLET BY MOUTH ONCE DAILY active Not Available Not Available No t Available albuterol sulfate HFA 90 mcg/actuatio n aerosol inhaler INHALE 2 PUFFS BY MOUTH 4 TIMES DAILY NEEDED FOR SHORTNESS OF BREATH OR WHEEZING active Not Available Not Available Not Available cefdinir 300 mg capsule TAKE 1 CAPSULE BY MOUTH TWICE DAILY FOR 5 DAYS active Not Available Not Available No t Available metoprolol tartrate 25 mg tablet TAKE ONE TABLET BY MOUTH TWICE DAILY active Not Available Not Available No t Available Vitals None Recorded Social History None recorded. Functional Status None recorded. Mental Status None recorded. Family History Nothing Reported. Medical History No medical history recorded. Gynecological HistoryNo gynecological history recorded. 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 Onychomycosis 814351308 B35.1 57047 Abnormal appearance of toenails improving with treatment. Continue topical antifungal until nails completely clear. Discussed potential added benefit of alternatin g with Vicks Vaporub. Pain in bi lateral feet [id number] M79.671 M79.183 [id number] pain associated with toenails improved with treatment Health Concerns Section Related Observation LastModified by Organization Detai ls LastModified Time None Recorded Concern Status LastModified by Organization Details LastModified Time None Recorded Payers Encounter Date Sequence Insurance Name Policy Number Policy Lazcano Covered Member ID Lazcano Member ID Guarantor Name 11/12/2024 1 [employer] - GOLD PLUS (MEDICARE REPLACEMENT/A DVANTAGE - HMO) [employer] [place] [id number] [place] Notes Date Note Type Note Provider Name and Address Organization Details Recorded Time 11/12/2024 text/html ROS as noted in the HPI Patient presents with daughter Sury for at risk foot care and follow up of mycosis. She admits her toenails are long and tender and in need of a trim. She reports she is applying topical antifungal solution daily. She thinks it is already helping some on the lesser toenails. PCP: Myranda Eckert PCP visit: Oct 31, 2024 Cher Nicole DPM [address], [address], [place], [address], [facility] - [place] & [place] 11/12/2024 13:06:37 OBGyn Episode No OBEpisode recorded.
--- OUTSIDE RECORDS SUMMARY | 2024-12-26 15:42 | XMS_ITS | Data Portability ---
Author Organization [place] [facility] [place] Address [address] [place] [address] Care Team Providers Care Siding Mechanic Name Role Phone MADELIN FOWLER Primary Care Provider Assessment Encounter Date Assessment Date Assessment LastModified by Organization Details LastModified Time 07/17/2024 07/17/2024 Evaluation and examination. Discussed podiatric pathology including treatment options with the patient and her daughter at length. Not available 07/17/2024 13:01:00 11/12/2024 11/12/2024 Evaluation and examination. Discussed podiatric pathology including treatment options with the patient and her daughter at length. Not available 11/12/2024 13:05:40 Plan of Treatment Reminders Order Date Submit Date Provider Last Modified By Organization Details Last Modified Time Details Appointments OV PROC 30 2025 10:45A M Cher Nicole DPM Not available Not available Not available Lab None recorded. Referral None recorded. Procedures None recorded. Surgeries None recorded. Imaging None recorded. Medication Orders clotrimaz ole 1 % topical solution 2024 025 [facility], [address], [address], 07/17/2024 11:59:46 Patient TargetsNo targets recorded. Patient Instructions Encounter Date Encounter Id Patient Instructions Last Modified By Organization Details Last Modified Time 07/17/2024 [id number] F/u 3 months [email or web address] Not available 10:32:58 Some of the information in this note was entered by the [facility] under the direction and training of the attending physician. I have reviewed the documentation of the encounter entered by the MULTISENSOR INTELLIGENCE OFFICER and attest that it is accurate. M*Modal sole painter software was utilized to enter some information in this note and therefore may contain voice recognition errors. Intake and other documentation entered by Jada Johnson CMA. [email or web address] Not available 07/17/2024 10:43:14 11/12/2024 [id number] F/u 3 months [email or web address] Not available 09:55:23 Some of the information in this note was entered by the [facility] under the direction and training of the attending physician. I have reviewed the documentation of the encounter entered by the MULTISENSOR INTELLIGENCE OFFICER and attest that it is accurate. M*Modal sole painter software was utilized to enter some information in this note and therefore may contain voice recognition errors. Intake and other documentation entered by Kika Woods CMA. [email or web address] Not available 11/12/2024 10:13:33 Reason for Referral None Reported. Procedures Surgical History Date Name Laterality Status Provider Name and Address Organization Details Recorded Time 5 Nail debridement (6-10) completed Mason RUBY [facility] & [place] 11/12/2024 09:55:23 5 Nail debridement (6-10) completed Sury RUBY [facility] & [place] 07/17/2024 10:42:47 Imaging Results None recorded. 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 Discussed importance of at-risk foot care including routine monitoring of feet, applying moisturize r to feet but not between toes, appropriat e shoe gear, drying well between the toes after bath and risks associated with soaking feet. Onychogryphosis 69548394 L60.2 Debrided toenails in thickness and length. Onychomycosis 270568471 B35.1 03891 Discussed treatment options regarding fungal toenail(s) . Patient elects for topical antifungal therapy. Explained results may take 6 months or longer with daily consistent use. Patient verbalizes understand ing and elects to try. Sent prescripti on with instructio sylvia for use. Pain in bi lateral feet [id number] 6888758 M79.671 M79.864 7746196 pain associated with toenails improved with treatment Ganglion c yst of left foot [id number] 113885 M67.472 [id number] Cher Nicole DPM [facility] [address] [place] [address],[address] [place] [address] 11/12/2024 09:45:35 11/12/2024 10:17:59 Hereditary sensory neuropathy 52677110 G60.8 Counseled regarding at risk foot care. Onychogryphosis 13096996 L60.2 Debrided toenails in thickness and length. Onychomycosis 149060584 B35.1 77042 Abnormal appearance of toenails improving with treatment. Continue topical antifungal until nails completely clear. Discussed potential added benefit of alternatin g with Vicks Vaporub. Pain in bi lateral feet [id number] 9148585 M79.671 M79.259 0860073 pain associated with toenails improved with treatment Health Concerns Section Related Observation LastModified by Organization Detai ls LastModified Time None Recorded Concern Status LastModified by Organization Details LastModified Time None Recorded Advance Directives Directive None Recorded Payers Insurance Date Sequence Insurance Name Policy Number Policy Lazcano Covered Member ID Lazcano Member ID Guarantor Name 11/09/2024 1 [employer] - GOLD PLUS (MEDICARE REPLACEMENT/A DVANTAGE - HMO) Eddi Hawkins [id number] Eddi Hawkins Notes Date Note Type Note Provider Name and Address Organization Details Recorded Time 07/17/2024 text/html ROS as noted in the HPI Patient presents with her daughter Sury for at-risk foot care. Patient reports her toenails are long and in need of a trim and requests assistance with this. She admits her nails are tender. Daughter feels the patient has nail fungus and would like a topical medicine for this.Patient admits pain in her feet from neuropathy.New patient, self referred. PCP: Myranda Eckert PCP visit: July 2024 Cher Nicole DPM [address] [place] [address], [address], [place], [address], [facility] [place] - [place] & [place] 07/17/2024 13:03:12 11/12/2024 text/html ROS as noted in the [...] visit: Oct 31, 2024 Cher Nicole DPM [address] [place] [address], [address], [place], [address], [facility] & [place] 11/12/2024 13:06:37 OBGyn Episode No OBEpisode recorded.
[2024-12-26 15:44] LABS: Microscopic, Urine URINE MICROSCOPIC (MICROSCOPIC)
[2024-12-26 16:10] LABS: Bilirubin,Urine Negative (Negative); Color,Urine YELLOW (Yellow); Glucose,Urine (UA) Negative (Negative); Ketones,Urine Negative (Negative); Leukocyte Esterase,Urine TRACE (Negative); PH,Urine 6.0 (5.0-8.5); Protein,Urine Negative (Negative); Specific Gravity, Urine 1.020 (1.005-1.030); Urobilinogen,Urine 0.2 EU/dl (0.2)
[2024-12-26 16:12] LABS: Hematocrit 41.1 % (37.0-47.0); Hemoglobin 13.2 g/dL (12.2-16.2); Mean Corpuscular HGB Conc 32.1 g/dL (31.8-35.4); Mean Corpuscular Hemoglobin 28.9 pg (27.0-31.2); Mean Corpuscular Volume 90.1 fl (81-99); Nucleated Red Blood Cells % 0 %; Platelet Count 240 K/mm3 (142-424); Red Blood Count 4.56 M/mm3 (4.20-5.40); Red Cell Distribution Width-SD 43.2 fL; White Blood Count 8.1 K/mm3 (4.8-10.8)
[2024-12-26 18:11] LABS: Bacteria,Urine 3+ /lpf; Mucus,Urine 1+ /lpf
[2024-12-26 18:42] LABS: Chloride 105 mmol/L (98-107); Sodium 139 mmol/L (136-145)
[2024-12-26 18:43] LABS: Albumin Level 4.0 g/dl (3.5-5.0); Potassium 4.3 mmoL/L (3.5-5.1)
[2024-12-26 18:45] LABS: Anion Gap 11.3 mEq/L (5-15); Blood Urea Nitrogen 27 mg/dl (7-17); Carbon Dioxide 27 mmol/L (22.0-30.0); Creatinine,Serum 1.90 mg/dl (0.52-1.04); Estimated Glomerular Filt Rate 26 ml/min (>60); GFR (African American) 32 ML/MIN (>60)
[2024-12-26 18:46] LABS: Calcium 8.8 mg/dl (8.4-10.2); Glucose 89 mg/dl (74-100); Phosphorous 4.3 mg/dl (2.5-4.5)
[2024-12-26 18:59] LABS: 25-OH Vitamin D, Total 17.2 ng/mL (30-100)
== END 2024-12-26 23:59 | disposition home or self-care (01) ==
LOC: LAB 15:39
PROVIDERS: PCP Nurse Practitioner Family; Visit Provider Nurse Practitioner
DX: N17.9 Acute kidney failure, unspecified (principal); N18.30 Chronic kidney disease, stage 3 unspecified
CPT/HCPCS: 36415; 80069; 81001; 82306; 82570; 83970; 84156; 85027; 87086

== ENCOUNTER 2024-12-27 12:33 | Outpatient (CLI) | payer MEDICARE, SELFPAY ==
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
--- OUTSIDE RECORDS SUMMARY | 2024-12-27 12:36 | XMS_ITS | Encounter Summary ---
Author Organization [facility] Address [address] [place] [address] Care Team Providers Care Wharf Tender Helper Name Role Phone Nico Hayward MD Primary Care Provider + [phone] Pcp, No Primary Care Provider UnavailMeek Grimes APRN Primary Care Provider [phone] Nico Hayward MD Unavailable [phone] Ryan Rice MD Unavailable [phone] Encounter Details Date Type Department Care Team (Late st Contact Info) Description 02/22/2022 Orders Only External Location [address] [place] [address] Ryan Rice MD [address] [address] Social History Tobacco Use Types [...] on filedocumented in this encounter Care Teams Wharf Tender Helper Relationship Specialty Start Date End Date Nico Hayward MD [address] [place] [address] PCP - General 07/17/20 05/14/24 Pcp, No [address] [place] [address] PCP - General Family Medicine 05/15/24 05/16/24 Meek Lucio APRN [address] [place] [address] PCP - General 05/17/24 Nico Hayward MD [address] [place] [address] 05/15/24 Ryan Rice MD 1210 [facility] [address] [place] [address] Referring Physician Cardiology 03/21/22 documented as of this encounter
--- OUTSIDE RECORDS SUMMARY | 2024-12-27 12:36 | XMS_ITS | Encounter Summary ---
Author Organization [facility] Address [address] [place] [address] Care Team Providers Care Recreation Officer Name Role Phone Nico Hayward MD Primary Care Provider + [phone] Pcp, No Primary Care Provider UnavailMeek Grimes APRN Primary Care Provider [phone] Nico Hayward MD Unavailable [phone] Ryan Rice MD Unavailable [phone] Encounter Details Date Type Department Care Team (Late st Contact Info) Description 02/22/2022 Orders Only External Location [address] [place] [address] Ryan Rice MD [address] [address] Social History Tobacco Use Types [...] on filedocumented in this encounter Care Teams Recreation Officer Relationship Specialty Start Date End Date Nico Hayward MD [address] [place] [address] PCP - General 07/17/20 05/14/24 Pcp, No [address] [place], [place] [id number] PCP - General Family Medicine 05/15/24 05/16/24 Meek Lucio APRN [address] [place] [address] PCP - General 05/17/24 Nico Hayward MD [address] [place] [address] 05/15/24 Ryan Rice MD 1210 [facility] [address] [place] [address] Referring Physician Cardiology 03/21/22 documented as of this encounter
--- OUTSIDE RECORDS SUMMARY | 2024-12-27 12:36 | XMS_ITS | Encounter Summary ---
Author Organization [facility] Address [address] [place] [address] Care Team Providers Care Timekeeper Supervisor Name Role Phone Nico Hayward MD Primary Care Provider + [phone] Pcp, No Primary Care Provider UnavailMeek Grimes APRN Primary Care Provider [phone] Nico Hayward MD Unavailable [phone] Ryan Rice MD Unavailable [phone] Encounter Details Date Type Department Care Team (Late st Contact Info) Description 04/11/2022 Lab Requisition [facility] [address] [place] [address] Valentin Aviles MD [address] [facility] 7[address] [facility] [address] [place] [address] Encounter for general adult medical examination without [...] GENERAL ORDERABLES Final Result [facility] [address] [place] [address] documented in this encounter Visit Diagnoses Diagnosis Encounter for general adult medical examination without abnormal findings documented in this encounter Additional Health Concerns Assessment Noted Time A fall risk assessment has been complete d for the patient 03/17/2022 9:15 AM EST documented as of this encounter Care Teams Timekeeper Supervisor Relationship Specialty Start Date End Date Nico Hayward MD [address] [place] [address] PCP - General 07/17/20 05/14/24 Pcp, [address] [place] [address] PCP - General Family Medicine 05/15/24 05/16/24 Meek Lucio APRN [address] [place] [address] PCP - General 05/17/24 Nico Hayward MD [address] [place] [address] 05/15/24 Ryan Rice MD [address] [id number] Referring Physician Cardiology 03/21/22 documented as of this encounter
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
--- OUTSIDE RECORDS SUMMARY | 2024-12-27 12:36 | XMS_ITS | Encounter Summary ---
Author Organization [facility] Address [address] [place] [address] Care Team Providers Care Campus Ambassador Name Role Phone Meek Lucio APRN Primary Care Provider [phone] Nico Hayward MD Unavailable [phone] Ryan Rice MD Unavailable [phone] Encounter Details Date Type Department Care Team (Latest Contact Info) Description 12/27/2024 Travel Social History Tobacco Use Types Packs/Day [...] any time in the past 12 m [facility], were you homeless or living in a intermediate (including now)? No 05/17/2024 Utilities Answer Date Recorded In the past 12 months has th e Dmail[employer], gas, oil, or water company threatened to [...] documented as of this encounter Care Teams Campus Ambassador Relationship Specialty Start Date End Date Meek Lucio APRN [address] [place] [address] PCP - General 05/17/24 Nico Hayward MD [address] [place] [address] 05/15/24 Ryan Rice MD 1210 [facility] [address] [place] [address] Referring Physician Cardiology 03/21/22 documented as of this encounter
--- OUTSIDE RECORDS SUMMARY | 2024-12-27 12:36 | XMS_ITS | Encounter Summary ---
Author Organization [facility] Address [address] [place] [address] Care Team Providers Care Terminal Operations Supervisor Name Role Phone Pcp, No Primary Care Provider UnavailMeek Grimes APRN Primary Care Provider Nico Hayward MD Unavailable [phone] Ryan Rice MD Unavailable [phone] Encounter Details Date Type Department Care Team (Late st Contact Info) Description 05/15/2024 Lab Requisition [facility] [address] [place] [address] Mauro Egan MD [address] [facility] [address] [place] [address] Encounter for general adult medical [...] any time in the past 12 m [facility], were you homeless or [...] Detected Not Detected 05/16/2024 2:03 PM EDT [facility] Swab (Axilla and Groin) 05/15/2024 5:30 PM EDT 05/15/2024 5:48 PM EDT Narrative [facility] - 05/16/2024 2:03 PM EDT This PCR assay was developed and its performance characteristics determined by [facility] as appropriate for clinical purposes. This assay has not been cleared or approved by the FDA, but is performed in a CLIA regulated laboratory that is qualified to perform high-complexity testing. us Mauro Egan MD LAB MICROBIOLOGY - GEN ERAL ORDERABLES Final Result [facility] [address] [place] [address] documented in this encounter Visit Diagnoses Diagnosis [...] documented as of this encounter Care Teams Terminal Operations Supervisor Relationship Specialty Start Date End Date Pcp, Vanessa [address] [place] [address] PCP - General Family Medicine 05/15/24 05/16/24 Meek Lucio APRN [address] [place] [address] PCP - General 05/17/24 Nico Hayward MD [address] [place] [address] 05/15/24 Ryan Rice MD 1210 [facility] [address] [place] [address] Referring Physician Cardiology 03/21/22 documented as of this encounter
--- NOTE | 2024-12-27 14:30 | CA_ITS ---
APPROVED REPORT EXAM: Limited 2D Echocardiogram with contrast Pole Peeling Machine Operator: RT Lenny(R) Ht: 5 ft 6 in Wt: 196lbs BSA: 1.98 BP: 157/86 mmHg Indications: HFrEF, 30% EF 10/04/24, 40% EF 01/2024, hx CABG 03/2024. Currently wearing lifevest. 2D Dimensions EF AP4 33.30 % GL Strain -9.8 % Other Information Study Quality: Fair Conclusion This is a limited TTE to evaluate for LV systolic function. Limited windows are obtained. Ultrasound enhancing agent is administered. The left ventricle is normal in size. There is increased LV wall thickness. There is moderate to severe global hypokinesis. There is severe hypokinesis of the inferior, septal, inferoseptal, and apical LV swanson. LVEF is 30%. Compared to prior study from 10/04/2024, the LV systolic function is unchanged. Electronically signed by : Chelsie Hutton MD 12/27/2024 18:41:35
[2024-12-27] MEDS: DEFINITY US ECHO CONTRAST 2ML INJ 2 MG IV (15:06)
== END 2024-12-27 23:59 | disposition home or self-care (01) ==
LOC: RT 12:34
PROVIDERS: PCP Nurse Practitioner Family; Visit Provider Internal Medicine
DX: I50.20 Unspecified systolic (congestive) heart failure (principal); R93.1 Abnormal findings on diagnostic imaging of heart and coronary circulation; Z95.1 Presence of aortocoronary bypass graft; I51.89 Other ill-defined heart diseases
CPT/HCPCS: 93308; Q9957

== ENCOUNTER 2025-01-08 10:22 | Day surgery (SDC) | payer MEDICARE, SELFPAY ==
[2025-01-08] VITALS (9 sets, daily range): BP systolic 95–160; BP diastolic 62–96; PULSE 75–82; RESP 16–20; TEMP 37; O2SAT 94–99; BMI 32.5
--- NOTE | 2025-01-08 07:15 | IR_ITS ---
APPROVED REPORT Patient Location: Outpatient [employer] Truck Driver: JESSIKA Wren RT (R) PROCEDURES 1. Pocket formation for AICD. 2. Placement of atrial sensing and pacing coil into the right atrial appendage. 3. Placement of a ventricular sensing, pacing and shocking coil in the right ventricular apex. 4. Permanent AICD placement. INDICATION Systolic Congestive Heart Failure, ejection < 35%, [place] Heart Assoication Class 3 Congestive Heart Failure Informed consent was obtained prior to the procedure. COMPLICATIONS NONE Estimated Blood Loss: LESS THAN 10 ML TECHNIQUE 1% Lidocaine with epinephrine used to anesthetized the left anterior aspect of the chest. Scalpel was used to make the initial cutaneous incision while electrocautery was used to dissect down tinto the fascia. The fascia was lifted off the pectoralis muscle and digitally manipulated creating a pocket for the defibrillator. The patient was then placed in Trendelenburg position and the subclavian vein was accessed 2 times via the Selinger technique. A 8 Barb[place] sheath was placed under fluoroscopic guidance into the subclavian vein. The dilator was removed from the sheath. Using fluoroscopic guidance, the ventricular lead was placed into the right ventricular apex, screwed and secured into place. Electronic interrogation proved acceptable thresholds and voltage within the lead. Using 3-0 silk, the ventricular lead was then secured into place and sheath peeled away. A 6 [place] fresh sheath and dilator was placed over the existing wire. Using fluoroscopic guidance, the atrial lead was then placed into the right atrial appendage and screwed and secured in place. Electrical interrogation demonstrated acceptable thresholds and voltage number. The atrial lead was then secured into place using 3-0 silk and sheath peeled away. 1 gram of Ancef was used to flush the pocket. All 3 leads were connected to generator and tested via computer. The defibrillator then secured to the fascia. Monocryl was used to close the subcutaneous layers while chan were used to close the cutaneous layer. A pressure dressing was placed and the patient was transferred to the postop holding area in stable condition for postoperative care. INTERROGATION Generator Model number: John AYALA [id number] Generator Serial number: [id number] Atrial lead model number: Tendril STS, 46cm, [id number] Atrial lead serial number: [id number] P-wave: 2.0mV Impedance: 400 ohms Threshold: 1.0V@0.5ms Right Ventricular lead model number: Ayden PINA, 58cm, Right Ventricular lead serial number: [id number] R-wave: >12mV Threshold: 0.5V@0.5ms Pacing Parameters: Mode: DDD Base/Max Track:60 ppm / 130 ppm No diaphragmatic stimulation at 10 volts. IMPRESSION 1. Successful pocket formation for AICD. 2. Successful placement of atrial sensing and pacing coil into the right atrial appendage. 3. Successful placement of a ventricular sensing, pacing and shocking coil in the right ventricular apex. 4. Successful permanent AICD placement. PLAN 1. Postop wound care. Electronically signed by : Ryan Rice MD 01/08/2025 15:43:13
[2025-01-08 10:41] LABS: Hematocrit 43.2 % (37.0-47.0); Hemoglobin 13.8 g/dL (12.2-16.2); Immature Granulocytes % 0.3 %; Mean Corpuscular HGB Conc 31.9 g/dL (31.8-35.4); Mean Corpuscular Hemoglobin 28.6 pg (27.0-31.2); Mean Corpuscular Volume 89.4 fl (81-99); Nucleated Red Blood Cells % 0 %; Platelet Count 215 K/mm3 (142-424); Red Blood Count 4.83 M/mm3 (4.20-5.40); Red Cell Distribution Width-SD 42.6 fL; White Blood Count 6.8 K/mm3 (4.8-10.8)
[2025-01-08 11:00] LABS: INR 1.71 (0.9-1.1); Prothrombin Time 18.2 seconds (10.1-12.5)
[2025-01-08 11:14] LABS: Anion Gap 12.3 mEq/L (5-15); Blood Urea Nitrogen 31 mg/dl (7-17); Calcium 9.9 mg/dl (8.4-10.2); Carbon Dioxide 25 mmol/L (22.0-30.0); Chloride 104 mmol/L (98-107); Creatinine Clearance Estimated 37 mL/min (50-200); Creatinine,Serum 2.00 mg/dl (0.52-1.04); Estimated Glomerular Filt Rate 25 ml/min (>60); GFR (African American) 30 ML/MIN (>60); Glucose 117 mg/dl (74-100); Potassium 4.3 mmoL/L (3.5-5.1); Sodium 137 mmol/L (136-145)
[2025-01-08] MEDS: LIDOCAINE 1% W/EPI 1:100,000 20ML VIAL 20 ML SQ (12:44)
[2025-01-08] MEDS: 0.9 % SODIUM CHLORIDE 1000ML 1,000 ML 999 ML IV (12:45)
--- NOTE | 2025-01-08 14:25 | XR_ITS ---
FINAL REPORT CLINICAL HISTORY: Confirm pacemaker/AID placement FINDINGS: A portable view of the chest is obtained. There is no prior exam for comparison. Changes from sternotomy. A left AICD is present. The heart is normal in size. Lung volumes are low. There are increased interstitial markings favored to represent mild edema. There may be a small pleural effusion. There is no pneumothorax. IMPRESSION: Left AICD present. Increased interstitial markings favor mild edema. Possible small pleural effusion. Reviewed, Interpreted and Dictated by Emani Mcelroy MD Transcribed by Tanvi Hunt Authenticated and [facility]
== END 2025-01-08 16:31 | disposition home or self-care (01) ==
PROVIDERS: PCP Nurse Practitioner Family; Visit Provider Internal Medicine
PROC: 0JH608Z Insertion of Defibrillator Generator into Chest Subcutaneous Tissue and Fascia, Open Approach (ICD-10-PCS; CPT 33249; principal; 2025-01-08 07:15)
DX: I25.5 Ischemic cardiomyopathy (principal); I50.21 Acute systolic (congestive) heart failure; I11.0 Hypertensive heart disease with heart failure; R94.39 Abnormal result of other cardiovascular function study; E78.49 Other hyperlipidemia; I71.9 Aortic aneurysm of unspecified site, without rupture; Z95.1 Presence of aortocoronary bypass graft; J44.9 Chronic obstructive pulmonary disease, unspecified; E05.90 Thyrotoxicosis, unspecified without thyrotoxic crisis or storm; I25.2 Old myocardial infarction; F17.210 Nicotine dependence, cigarettes, uncomplicated; Z86.73 Personal history of transient ischemic attack (TIA), and cerebral infarction without residual deficits; Z95.5 Presence of coronary angioplasty implant and graft; Z79.01 Long term (current) use of anticoagulants; Z79.02 Long term (current) use of antithrombotics/antiplatelets; Z79.82 Long term (current) use of aspirin; Z79.899 Other long term (current) drug therapy; Z88.5 Allergy status to narcotic agent; Z88.8 Allergy status to other drugs, medicaments and biological substances; Z82.49 Family history of ischemic heart disease and other diseases of the circulatory system
CPT/HCPCS: 33249; 36415; 71045; 80048; 85025; 85610; C1721; C1895; C1898; J2003; J2004; J2371; J2405; J2704; J7030

== ENCOUNTER 2025-02-17 13:54 | Outpatient (CLI) | payer MEDICARE, SELFPAY ==
[2025-02-17 15:28] LABS: PHA INR Fingerstick 3.2 (0.9-1.1)
== END 2025-02-17 15:35 ==
LOC: ACC 13:54
PROVIDERS: PCP Nurse Practitioner Family; Visit Provider Physician Assistant
DX: I48.91 Unspecified atrial fibrillation (principal); Z79.01 Long term (current) use of anticoagulants
CPT/HCPCS: 85610; 99211; G0463